=== PATIENT | male | born 1945 | race Caucasian/White ===

== ENCOUNTER 2016-08-28 16:07 | Inpatient (IN) | payer MEDICARE, BC ==
[~2016-08-28] VITALS: Ht 172.7 cm; Wt 71.1 kg
[~2016-08-28 16:07] MED LIST: 1-ME1LIQ OR; ADVA500A INH; CARD8TAB6 PO; HYDR100T2 PO; MEDR4PAK3 PO; METO50TA PO; POTA-243 PO; PRAV10 PO; PRAV20 PO; PROS5TAB2 PO; TAMS0.4C67 PO; TRAZ100 PO
[2016-08-28 16:12] VITALS: BP 141/64; PULSE 84; RESP 16; TEMP 98.6; O2SAT 95
[2016-08-28] MEDS ORDERED: PRAV10TA PO (16:20)
[2016-08-28] MEDS ORDERED: FINA5TAB2 PO (16:20)
[2016-08-28] MEDS ORDERED: TRAZ100T4 PO (16:20)
[2016-08-28] MEDS ORDERED: TAMS0.4C4 PO (16:20)
[2016-08-28] MEDS ORDERED: DOXA1TAB43 PO (16:20)
[2016-08-28] MEDS ORDERED: ADVA250A INH (16:20)
[2016-08-28] MEDS ORDERED: AMLO5TAB2 PO (16:20)
[2016-08-28] MEDS ORDERED: METO25TA3 PO (16:20)
[2016-08-28] MEDS ORDERED: POTA-245 PO (16:20)
--- NOTE | 2016-08-28 16:47 | PD ---
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 He is not aware of any fever or chills. He has a chronic cough. Says he is not having any pain anywhere. He has no dysuria. He does smoke cigarettes. He drinks 4 martinis daily. He did not have a loss of consciousness. He says he was shaking in his arms and legs. PFSH Past Medical History Hx Anticoagulant Therapy: No Autoimmune Disease: No Heart Rhythm Problems: No Cancer: Yes (RENAL. PARTIAL L NEPHRECTOMY) Cardiovascular Problems: No High Cholesterol: Yes (ON MEDS) Chemotherapy: No Chest Pain: No Congestive Heart Failure: No COPD: Yes Cerebrovascular Accident: No Coronary Artery Disease: Yes Diabetes: No Endocrine: Yes Gastrointestinal Disorders: Yes GERD: No Genitourinary: Yes Hiatal Hernia: Yes Hypertension: Yes Immune Disorder: No Implanted Vascular Access Dvce: Yes Kidney Stones: Yes Musculoskeletal: Yes Neurologic: No Psychiatric: No Reproductive: No Respiratory: Yes (COPD) Myocardial Infarction: No Radiation Therapy: No Renal Failure: No Ulcer: No Tetanus Vaccination: > 5 Years Influenza Vaccination: Yes PNEUMOCCOCAL Vaccine (Year): 1 Past Surgical History Abdominal Surgery: Yes (LT ING HERNIA REPAIR) Body Medical Devices: SCREWS IN LEFT HIP Cardiac Surgery: No Ear Surgery: No Endocrine Surgery: No Eye Surgery: No Genitourinary Surgery: Yes (RT PARTIAL NEPHRECTOMY) Gynecologic Surgery: No Hysterectomy: No Neurologic Surgery: No Oral Surgery: No Thoracic Surgery: No Tonsillectomy: Yes Other Surgery: Yes (RIGHT PARTIAL NEPHRECTOMY 1999,INGUINAL HERNIA 1962, TONSILLECTOMY) Social History Alcohol Use: Yes (4 MARTINIS DAILY) Tobacco Use: Yes (2 PPD) Substance Use: No Allergies-Medications (Allergen,Severity, Reaction): Coded Allergies: No Known Allergies (Verified , 08/28/16) Reported Meds & Prescriptions Reported Meds & Active Scripts Active Reported Trazodone (Trazodone HCl) 100 Mg Tab 100 Mg PO HS Klor-Con M20 (Potassium Chloride Microencaps) 20 Meq Tab 40 Meq PO DAILY Advair Diskus Inh (Fluticasone-Salmeterol Inh) 250-50 Mcg/Blist Aer 1 Puff INH DAILY Rinse mouth after use. Finasteride 5 Mg Tab 5 Mg PO DAILY Do not crush. Amlodipine (Amlodipine Besylate) 5 Mg Tab 5 Mg PO DAILY Doxazosin (Doxazosin Mesylate) 8 Mg Tab 8 Mg PO DAILY Metoprolol Tartrate 25 Mg Tab 25 Mg PO BID Pravastatin 10 Mg Tab 10 Mg PO DAILY Tamsulosin (Tamsulosin HCl) 0.4 Mg Cap 0.4 Mg PO HS Review of Systems General / Constitutional: No: Fever, Chills Eyes: No: Diploplia HENT: No: Headaches Cardiovascular: No: Chest Pain or Discomfort, Palpitations Respiratory: Positive: Cough, Shortness of Breath Gastrointestinal: No: Vomiting, Diarrhea Genitourinary: No: Urgency, Frequency Neurologic: No: Change in Mentation Hematologic/Lymphatic: No: Easy Bruising Physical Exam Narrative GENERAL: Well-developed male SKIN: Warm and dry. HEAD: Atraumatic. Normocephalic. EYES: Pupils equal and round. No scleral icterus. No injection or drainage. ENT: No nasal bleeding or discharge. Mucous membranes pink and moist. NECK: Trachea midline. No JVD. CARDIOVASCULAR: Regular rate and rhythm. No murmur appreciated. RESPIRATORY: No accessory muscle use. There are scattered rhonchi. Breath sounds equal bilaterally. GASTROINTESTINAL: Abdomen soft, non-tender, nondistended. Hepatic and splenic margins not palpable. MUSCULOSKELETAL: No obvious deformities. No clubbing. No cyanosis. No edema. NEUROLOGICAL: Awake and alert. No obvious cranial nerve deficits. Motor grossly within normal limits. Normal speech. PSYCHIATRIC: Appropriate mood and affect; insight and judgment normal. Data Data Last Documented VS Vital Signs Date Time Temp Pulse Resp B/P Pulse Ox O2 Delivery O2 Flow Rate FiO2 08/28/16 18:02 89 18 160/72 95 Room Air 08/28/16 16:12 98.6 Orders Electrocardiogram (08/28/16 16:42) Complete Blood Count With Diff (08/28/16 16:42) Comprehensive Metabolic Panel (08/28/16 16:42) B-Type Natriuretic Peptide (08/28/16 16:42) Urinalysis - C+S If Indicated (08/28/16 16:42) Magnesium (Mg) (08/28/16 16:42) Alcohol (Ethanol) (08/28/16 16:42) Chest, Single Ap (08/28/16 16:42) Urine Culture (08/28/16 16:55) Blood Culture (08/28/16 18:36) Lactic Acid Sepsis Protocol (08/28/16 18:36) Piperacil-Tazo 4.5 Gm Premix (Zosyn 4.5 (08/28/16 18:37) Ceftriaxone Inj (Rocephin Inj) (08/28/16 19:00) Sodium Chlor 0.9% 1000 Ml Inj (Ns 1000 M (08/28/16 19:00) Labs Laboratory Tests Test 08/28/16 16:55 White Blood Count 9.1 TH/MM3 Red Blood Count 4.60 MIL/MM3 Hemoglobin 15.3 GM/DL Hematocrit 45.9 % Mean Corpuscular Volume 99.7 FL Mean Corpuscular Hemoglobin 33.3 PG Mean Corpuscular Hemoglobin 33.4 % Concent Red Cell Distribution Width 12.5 % Platelet Count 143 TH/MM3 Mean Platelet Volume 9.4 FL Neutrophils (%) (Auto) 78.4 % Lymphocytes (%) (Auto) 10.1 % Monocytes (%) (Auto) 7.7 % Eosinophils (%) (Auto) 0.6 % Basophils (%) (Auto) 3.2 % Neutrophils # (Auto) 7.1 TH/MM3 Lymphocytes # (Auto) 0.9 TH/MM3 Monocytes # (Auto) 0.7 TH/MM3 Eosinophils # (Auto) 0.1 TH/MM3 Basophils # (Auto) 0.3 TH/MM3 CBC Comment DIFF FINAL Differential Comment Urine Collection Type CLEAN CATCH Urine Color YELLOW Urine Turbidity SLIGHT Urine pH 6.5 Urine Specific [place] 1.018 Urine Protein 100 mg/dL Urine Glucose (UA) NEG mg/dL Urine Ketones TRACE mg/dL Urine Occult Blood TRACE Urine Nitrite POS Urine Bilirubin NEG Urine Leukocyte Esterase MOD Urine RBC 0-3 /hpf Urine WBC 50-99 /hpf Urine WBC Clumps MOD Urine Squamous Epithelial 0-5 /hpf Cells Urine Transitional Epithelial 0-5 /hpf Cells Urine Bacteria OCC /hpf Urine Yeast (Budding) FEW Microscopic Urinalysis Comment CULTURE INDICATED Urine Collection Time 17:07 Sodium Level 143 MEQ/L Potassium Level 4.7 MEQ/L Chloride Level 108 MEQ/L Carbon Dioxide Level 23.3 MEQ/L Anion Gap 12 MEQ/L Blood Urea Nitrogen 20 MG/DL Creatinine 1.80 MG/DL Estimat Glomerular Filtration 37 ML/MIN Rate Random Glucose 113 MG/DL Calcium Level 9.0 MG/DL Magnesium Level 2.4 MG/DL Total Bilirubin 0.5 MG/DL Aspartate Amino Transf 13 U/L (AST/SGOT) Alanine Aminotransferase 19 U/L (ALT/SGPT) Alkaline Phosphatase 57 U/L B-Type Natriuretic Peptide 139 PG/ML Total Protein 6.7 GM/DL Albumin 3.2 GM/DL Ethyl Alcohol Level LESS THAN 3 MG/DL MDM Medical Decision Making Medical Screen Exam Complete: Yes Emergency Medical Condition: Yes Medical Record Reviewed: Yes Differential Diagnosis Differential includes alcohol withdrawal, shaking chills, pneumonia Narrative Course Chest x-rays read as negative. His white count is 9000. Urinalysis does show infection with 50-99 white cells. At approximately 6:30 I was called to see the patient because he was having a recurrence of his shaking episode. At this time he is having tremors of his arms and legs. He is awake and alert. I believe this is a shaking chill related to possible bacteremia from urinary tract infection Diagnosis Primary Impression: Urinary tract infection Qualified Code: N39.0 - Urinary tract infection without hematuria, site unspecified Admitting Information Admitting Physician Requests: Observation Keyur Engle MD Aug 28, 2016 16:47
[2016-08-28 17:14] LABS: AUTOMATED NEUTROPHIL # 7.1 TH/MM3 (1.8-7.7); BASOPHIL # 0.3 TH/MM3 (0-0.2); BASOPHIL % 3.2 % (0.0-2.0); EOSINOPHIL # 0.1 TH/MM3 (0-0.4); EOSINOPHIL % 0.6 % (0.0-4.0); HEMATOCRIT 45.9 % (39.0-51.0); HEMO FLAGS DIFF FINAL; LYMPH % 10.1 % (9.0-44.0); LYMPHOCYTE # 0.9 TH/MM3 (1.0-4.8); MEAN CELL VOLUME 99.7 FL (80.0-100.0); MEAN CORPUSCULAR HEMOGLOBIN 33.3 PG (27.0-34.0); MEAN CORPUSCULAR HGB CONC 33.4 % (32.0-36.0); MONO % 7.7 % (0.0-8.0); NEUT % 78.4 % (16.0-70.0); PLATELET COUNT 143 TH/MM3 (150-450); RED CELL DISTRIBUTION WIDTH 12.5 % (11.6-17.2); WHITE BLOOD COUNT 9.1 TH/MM3 (4.0-11.0)
[2016-08-28 17:19] LABS: BLOOD, URINE TRACE (NEG); GLUCOSE,URINE NEG (NEG); KETONE, URINE TRACE mg/dL (NEG); PH, URINE 6.5 (5.0-8.5)
[2016-08-28 17:23] LABS: CHLORIDE 108 MEQ/L (98-107); POTASSIUM 4.7 MEQ/L (3.5-5.1); SODIUM (NA) 143 MEQ/L (136-145)
[2016-08-28 17:26] LABS: ANION GAP 12 MEQ/L (5-15); BICARBONATE 23.3 MEQ/L (21.0-32.0); MAGNESIUM 2.4 MG/DL (1.5-2.5)
--- NOTE | 2016-08-28 17:26 | RADHPO ---
EXAM DATE/TIME: 08/28/2016 16:57 [facility] COMPARISON: CHEST SINGLE AP, August 18, 2014, 13:15. INDICATIONS : Cough. MEDICAL HISTORY : None. SURGICAL HISTORY : None. ENCOUNTER: Initial ACUITY: 3 days PAIN SCORE: 0/10 LOCATION: Bilateral chest FINDINGS: The heart and mediastinal structures are normal. The pulmonary vascular pattern is normal. The lungs are clear. CONCLUSION: No acute cardiopulmonary disease. Shine Fuentes MD on August 28, 2016 at 17:13 Board Certified Radiologist. This report was verified electronically.
[2016-08-28 17:27] LABS: BLOOD UREA NITROGEN 20 MG/DL (7-18)
[2016-08-28 17:29] LABS: ALT (GPT) 19 U/L (12-78); AST (GOT) 13 U/L (15-37); GLOMERULAR FILTRATION RATE 37 ML/MIN (>89)
[2016-08-28 17:31] LABS: TOTAL BILIRUBIN ADULT 0.5 MG/DL (0.2-1.0)
[2016-08-28 17:32] LABS: ALKALINE PHOSPHATASE 57 U/L (45-117)
[2016-08-28 17:45] LABS: METHOD OF COLLECTION CLEAN CATCH; NITRITE,URINE POS (NEG); URINE COLOR YELLOW (YELLW/STRAW)
[2016-08-28 17:46] LABS: BACTERIA, URINE OCC /hpf; COMMENT (UR) CULTURE INDICATED; CULTURE IF INDICATED CULTURE INDICATED; RBC, URINE 0-3 /hpf (0-3); SQUAMOUS EPITHELIAL CELL URINE 0-5 /hpf (0-5); TRANSITIONAL EPI CELLS, URINE 0-5 /hpf
[2016-08-28 18:02] VITALS: BP 160/72; PULSE 89; RESP 18; O2SAT 95
[2016-08-28] MEDS ORDERED: PIPERACIL-TAZO 4.5 GM PREMIX 100 ML IV STA (18:37)
[2016-08-28] MEDS ORDERED: cefTRIAXone INJ 1,000 MG in SODIUM CHLORIDE 0.9% INJ 100 ML IV ONE (19:00)
[2016-08-28 19:21] VITALS: BP 174/82; PULSE 80; RESP 18; O2SAT 96
[2016-08-28] MEDS: SODIUM CHLOR 0.9% 1000 ML INJ 1,000 ML IV SCH ×2 (19:46→22:19)
[2016-08-28 20:00] VITALS: BP 188/106; PULSE 87; RESP 18; TEMP 97.6; O2SAT 94
[2016-08-28] MEDS ORDERED: SODIUM CHLORIDE 0.9% FLUSH 5 ML FLUSH FLUSH PRN (20:45)
[2016-08-28] MEDS ORDERED: NALOXONE HCL 0.4 MG/ML AMP IV PRN (20:45)
[2016-08-28 20:54] VITALS: BP 179/82
[2016-08-28] MEDS: SODIUM CHLORIDE 0.9% FLUSH 5 ML FLUSH FLUSH SCH (21:00)
[2016-08-28] MEDS ORDERED: cloNIDine HCL 0.1 MG TAB PO PRN (22:00)
[2016-08-28] MEDS ORDERED: LORazepam 2 MG TAB PO PRN (22:15)
[2016-08-28] MEDS ORDERED: LORazepam 2 MG/ML VIAL IV PUSH PRN ×4 (22:15)
[2016-08-28] MEDS ORDERED: LORazepam 1 MG TAB PO PRN (22:15)
[2016-08-28] MEDS ORDERED: FLUMAZENIL 0.5 MG/5 ML VIAL IV PUSH PRN (22:15)
[2016-08-28] MEDS: traZODone HCL 100 MG TAB PO SCH (22:18)
[2016-08-28] MEDS: TAMSULOSIN HCL 0.4 MG CAP PO SCH (22:18)
[2016-08-28] MEDS: METOPROLOL TARTRATE 25 MG TAB PO SCH (22:19)
[2016-08-28 22:45] LABS: AMPHETAMINE, URINE NEG (NEG); BARBITURATES, URINE NEG (NEG); COCAINE, URINE NEG (NEG)
[2016-08-28] MEDS ORDERED: NICOTINE 14 MG/24 HR PATCH TD ONE (23:45)
[2016-08-29] VITALS: BP 169/98; PULSE 71; RESP 16; TEMP 97.5; O2SAT 96
[2016-08-29] MEDS: SODIUM CHLOR 0.9% 1000 ML INJ 1,000 ML IV SCH ×3 (04:22→20:12)
[2016-08-29] MEDS ORDERED: RESP: ALBUTEROL 2.5 MG/3 ML NEB (PRN) INH (04:45)
[2016-08-29] MEDS: RESP: ALBUTEROL 2.5 MG/IPRATROPIUM 0.5 MG NEB (SCH) INH ×2 (04:55→09:48)
[2016-08-29 06:00] VITALS: BP 160/98; PULSE 98; RESP 16; TEMP 97.3; O2SAT 95
--- NOTE | 2016-08-29 06:04 | HHI.HP ---
History of Present Illness Service [facility] practice Primary Care Physician Tez Sidhu, DO Admission Diagnosis UTI Diagnoses: History of Present Illness Patient is a very pleasant 71-year-old male who is a patient who presented to the ER with shaking. He denies any fever or chills. He has a PMH of HTN, hyperlipidemia, COPD, tobacco abuse, daily ETOH use, and BPH. He has a chronic cough. Says he is not having any pain anywhere. He was found to have a UTI and antibiotic treatment was initiated. BC where also obtained. He has no dysuria. Review of Systems Constitutional: COMPLAINS OF: Chills, DENIES: Fever Respiratory: COMPLAINS OF: Cough, DENIES: Sputum production, Shortness of breath Cardiovascular: DENIES: Chest pain, Palpitations, Syncope Gastrointestinal: DENIES: Abdominal pain, Constipation, Nausea, Vomiting Musculoskeletal: COMPLAINS OF: Stiffness, DENIES: Joint pain Neurologic: COMPLAINS OF: Poor Balance, DENIES: Headache, Seizures Psychiatric: DENIES: Anxiety, Confusion, Depression Past Family Social History Allergies: Coded Allergies: No Known Allergies (Verified , 08/28/16) Past Medical History Cancer: Yes (RENAL. PARTIAL L NEPHRECTOMY) High Cholesterol COPD Hiatal Hernia Hypertension Kidney Stones Past Surgical History RIGHT PARTIAL NEPHRECTOMY 1999,INGUINAL HERNIA 1962,TONSILLECTOMY Reported Medications Reported Meds & Active Scripts Active Reported Trazodone (Trazodone HCl) 100 Mg Tab 100 Mg PO HS Advair Diskus Inh (Fluticasone-Salmeterol Inh) 250-50 Mcg/Blist Aer 1 Puff INH DAILY Rinse mouth after use. Finasteride 5 Mg Tab 5 Mg PO DAILY Do not crush. Amlodipine (Amlodipine Besylate) 5 Mg Tab 5 Mg PO DAILY Doxazosin (Doxazosin Mesylate) 8 Mg Tab 8 Mg PO DAILY Metoprolol Tartrate 25 Mg Tab 25 Mg PO BID Pravastatin 10 Mg Tab 10 Mg PO DAILY Tamsulosin (Tamsulosin HCl) 0.4 Mg Cap 0.4 Mg PO HS Active Ordered Medications Current Medications Medications (Trade) Dose Ordered Sig/Nayeli Route Start Time Stop Time Status Last Admin (NS Flush) 2 ml UNSCH PRN FLUSH 08/28/16 20:45 (NS Flush) 2 ml BID FLUSH 08/28/16 21:00 08/29/16 09:04 (Narcan Inj) 0.4 mg UNSCH PRN IV 08/28/16 20:45 (Norvasc) 5 mg DAILY PO 08/29/16 09:00 08/29/16 09:05 (Cardura) 8 mg DAILY PO 08/29/16 09:00 08/29/16 09:04 (Proscar) 5 mg DAILY PO 08/29/16 09:00 08/29/16 09:04 (Pravachol) 10 mg DAILY PO 08/29/16 09:00 08/29/16 09:09 (Symbicort 160-4.5 Inh) 2 puff DAILY INH 08/29/16 09:00 08/29/16 09:04 (Lopressor) 25 mg BID PO 08/28/16 22:00 08/29/16 09:04 (Flomax) 0.4 mg HS PO 08/28/16 22:00 08/28/16 22:18 (Desyrel) 100 mg HS PO 08/28/16 22:00 08/28/16 22:18 (Catapres) 0.1 mg Q6H PRN PO 08/28/16 22:00 08/29/16 04:23 (Ativan) 1 mg Q4H PRN PO 08/28/16 22:15 (Ativan Inj) 1 mg Q4H PRN IV PUSH 08/28/16 22:15 08/28/16 22:28 (Ativan) 2 mg Q2H PRN PO 08/28/16 22:15 (Ativan Inj) 2 mg Q2H PRN IV PUSH 08/28/16 22:15 (Ativan Inj) 2 mg Q1H PRN IV PUSH 08/28/16 22:15 (Ativan Inj) 2 mg Q15M PRN IV PUSH 08/28/16 22:15 (Habitrol 14 Mg Patch.24 Hr) 1 patch DAILY TD 08/29/16 09:00 08/29/16 09:06 Miscellaneous Information 1 DAILY TD 08/29/16 09:00 08/29/16 09:00 IV Flush 2 ml 2 ml BID IVF 08/29/16 09:00 (NS 1000 ml Inj) 1,000 ml @ 75 mls/hr [id number] IV 08/29/16 07:00 08/29/16 08:22 (Symbicort 160-4.5 Inh) 2 puff Q12HR INH 08/29/16 12:00 (Proair Hfa Inh) 2 puff Q6HR INH 08/29/16 12:00 UNV Social History Smokes 2 pack per day ETOH: Daily 4 drinks Lives alone. Physical Exam Vital Signs Vital Signs Date Time Temp Pulse Resp B/P Pulse Ox O2 Delivery O2 Flow Rate FiO2 08/29/16 00:00 97.5 71 16 169/98 96 08/28/16 20:54 81 18 179/82 95 08/28/16 20:00 97.6 87 18 188/106 94 08/28/16 19:21 75 18 96 Room Air 08/28/16 19:21 80 18 174/82 96 Room Air 08/28/16 18:02 89 18 160/72 95 Room Air 08/28/16 16:12 98.6 84 16 141/64 95 Physical Exam GENERAL: This is a well-nourished male in no apparent distress SKIN: No rashes, ecchymoses or lesions. Cool and dry. EYES: Pupils equal round and reactive. NECK: Trachea midline. No JVD. Supple, nontender, no meningeal signs. CARDIOVASCULAR: Regular rate and rhythm without murmurs, gallops, or rubs. RESPIRATORY: Diminished bilaterally. Wheezing no rales, or rhonchi. GASTROINTESTINAL: Abdomen soft, non-tender, nondistended. MUSCULOSKELETAL: Extremities without cyanosis, or edema. NEUROLOGICAL: Awake and alert. Normal speech. Laboratory Laboratory Tests Test 08/28/16 08/28/16 08/28/16 16:55 19:00 20:25 White Blood Count 9.1 Red Blood Count 4.60 Hemoglobin 15.3 Hematocrit 45.9 Mean Corpuscular Volume 99.7 Mean Corpuscular Hemoglobin 33.3 Mean Corpuscular Hemoglobin 33.4 Concent Red Cell Distribution Width 12.5 Platelet Count 143 Mean Platelet Volume 9.4 Neutrophils (%) (Auto) 78.4 Lymphocytes (%) (Auto) 10.1 Monocytes (%) (Auto) 7.7 Eosinophils (%) (Auto) 0.6 Basophils (%) (Auto) 3.2 Neutrophils # (Auto) 7.1 Lymphocytes # (Auto) 0.9 Monocytes # (Auto) 0.7 Eosinophils # (Auto) 0.1 Basophils # (Auto) 0.3 CBC Comment DIFF FINAL Differential Comment Urine Collection Type CLEAN CATCH Urine Color YELLOW Urine Turbidity SLIGHT Urine pH 6.5 Urine Specific [place] 1.018 Urine Protein 100 Urine Glucose (UA) NEG Urine Ketones TRACE Urine Occult Blood TRACE Urine Nitrite POS Urine Bilirubin NEG Urine Leukocyte Esterase MOD Urine RBC 0-3 Urine WBC 50-99 Urine WBC Clumps MOD Urine Squamous Epithelial 0-5 Cells Urine Transitional Epithelial 0-5 Cells Urine Bacteria OCC Urine Yeast (Budding) FEW Microscopic Urinalysis Comment CULTURE INDICATED Urine Collection Time 17:07 Sodium Level 143 Potassium Level 4.7 Chloride Level 108 Carbon Dioxide Level 23.3 Anion Gap 12 Blood Urea Nitrogen 20 Creatinine 1.80 Estimat Glomerular Filtration 37 Rate Random Glucose 113 Calcium Level 9.0 Magnesium Level 2.4 Total Bilirubin 0.5 Aspartate Amino Transf 13 (AST/SGOT) Alanine Aminotransferase 19 (ALT/SGPT) Alkaline Phosphatase 57 B-Type Natriuretic Peptide 139 Total Protein 6.7 Albumin 3.2 Ethyl Alcohol Level LESS THAN 3 Lactic Acid Level 1.4 Urine Opiates Screen NEG Urine Barbiturates Screen NEG Urine Amphetamines Screen NEG Urine Benzodiazepines Screen NEG Urine Cocaine Screen NEG Urine Cannabinoids Screen NEG Date/Time Procedure Status Source Growth 08/28/16 18:59 Aerobic Blood Culture Received Blood Peripheral Pending 08/28/16 18:59 Anaerobic Blood Culture Received Blood Peripheral Pending 08/28/16 16:55 Urine Culture Received Urine Clean Catch Pending Result Diagram: 08/28/16 1655 08/28/16 1655 Imaging Last 48 hours Impressions Chest X-Ray 08/28/16 1642 Signed Impressions: Service Date/Time: August 16:57 - CONCLUSION: No acute cardiopulmonary disease. Shine Fuentes MD Assessment and Plan Problem List: (1) Urinary tract infection Status: Acute Plan: Patient with positive nitrates and leukocytes. Rocephin ordered Q24 hours. Culture pending. (2) Hypertension Status: Acute Plan: Patient HTN. Amlodipine increased. Lisinopril added. (3) COPD (chronic obstructive pulmonary disease) Status: Acute Plan: Patient is wheezy this am. Breathing treatment ordered however patient does not want nebulizer. Symbicort and ProAir ordered. (4) Alcohol abuse Status: Acute Plan: CIWA protocol initiated last night. Patient was calm and cooperative during visit. (5) Chronic renal disease Status: Acute Plan: GFR 37 will monitor. IVF decreased to 75 ml. Making good urine output. (6) Weakness Status: Acute Plan: PT eval and treat ordered. Patient reported that he has been very weak. Walks with cane Discussed Condition With Assessment and plan discussed with Dr. Sidhu Discharge Planning Plan to discharge home Problem Qualifiers (1) Urinary tract infection: Qualified Code: N39.0 - Urinary tract infection without hematuria, site unspecified Raysa Bhakta Aug 29, 2016 06:04
[2016-08-29 08:00] VITALS: BP 182/94; PULSE 72; RESP 18; TEMP 97.5; O2SAT 93
[2016-08-29 08:04] LABS: AUTOMATED NEUTROPHIL # 4.2 TH/MM3 (1.8-7.7); BASOPHIL # 0.2 TH/MM3 (0-0.2); BASOPHIL % 2.7 % (0.0-2.0); EOSINOPHIL # 0.2 TH/MM3 (0-0.4); EOSINOPHIL % 3.1 % (0.0-4.0); HEMATOCRIT 42.7 % (39.0-51.0); HEMO FLAGS DIFF FINAL; LYMPH % 18.9 % (9.0-44.0); LYMPHOCYTE # 1.2 TH/MM3 (1.0-4.8); MEAN CELL VOLUME 101.5 FL (80.0-100.0); MEAN CORPUSCULAR HEMOGLOBIN 34.5 PG (27.0-34.0); MONO % 9.7 % (0.0-8.0); NEUT % 65.6 % (16.0-70.0); PLATELET COUNT 123 TH/MM3 (150-450); RED BLOOD COUNT 4.21 MIL/MM3 (4.50-5.90); WHITE BLOOD COUNT 6.4 TH/MM3 (4.0-11.0)
[2016-08-29] MEDS: REMOVE OLD PATCH TD SCH (09:00)
[2016-08-29] MEDS: SODIUM CHLORIDE 0.9% FLUSH 5 ML FLUSH IVF SCH ×2 (09:00→20:12)
[2016-08-29] MEDS ORDERED: amLODIPine BESYLATE 5 MG TAB PO SCH (09:00)
[2016-08-29] MEDS ORDERED: METOPROLOL TARTRATE 25 MG TAB PO SCH (09:00)
[2016-08-29] MEDS ORDERED: BUDESONIDE-FORMOTEROL 160/4.5 MCG INHALER INH SCH ×3 (09:00→21:00)
[2016-08-29] MEDS: DOXAZOSIN MESYLATE 4 MG TAB PO SCH (09:04)
[2016-08-29] MEDS: FINASTERIDE 5 MG TAB PO SCH (09:04)
[2016-08-29] MEDS: SODIUM CHLORIDE 0.9% FLUSH 5 ML FLUSH FLUSH SCH ×2 (09:04→20:12)
[2016-08-29] MEDS: METOPROLOL TARTRATE 25 MG TAB PO SCH ×2 (09:04→20:14)
[2016-08-29] MEDS: NICOTINE 14 MG/24 HR PATCH TD SCH (09:06)
[2016-08-29] MEDS: PRAVASTATIN SOD 10 MG TAB PO SCH (09:09)
[2016-08-29 10:25] LABS: ALKALINE PHOSPHATASE 50 U/L (45-117); ALT (GPT) 16 U/L (12-78); ANION GAP 9 MEQ/L (5-15); AST (GOT) 11 U/L (15-37); BICARBONATE 24.3 MEQ/L (21.0-32.0); BLOOD UREA NITROGEN 14 MG/DL (7-18); CHLORIDE 111 MEQ/L (98-107); GLOMERULAR FILTRATION RATE 50 ML/MIN (>89); POTASSIUM 3.7 MEQ/L (3.5-5.1); SODIUM (NA) 144 MEQ/L (136-145); TOTAL BILIRUBIN ADULT 0.6 MG/DL (0.2-1.0)
[2016-08-29] MEDS: ENOXAPARIN SODIUM 30 MG/0.3 ML SYRINGE SQ SCH (10:50)
[2016-08-29 12:00] VITALS: BP 154/78; PULSE 68; RESP 18; TEMP 97.4; O2SAT 95
[2016-08-29] MEDS ORDERED: ALBUTEROL SULFATE 90 MCG/ACT HFA 8 GM INHALER INH PRN (12:00)
[2016-08-29] MEDS: LISINOPRIL 10 MG TAB PO SCH (12:33)
[2016-08-29] MEDS: RESP: ALBUTEROL 2.5 MG/IPRATROPIUM 0.5 MG NEB (SCH) NEB ×2 (15:25→19:28)
--- NOTE | 2016-08-29 18:52 | EKG ---
Date Performed: 08/28/2016 Time Performed: 16:41:34 PTAGE: 71 years EKG: Sinus arrhythmia Septal T wave changes are nonspecific Borderline ECG PREVIOUS TRACING : 07/09/2012 09.31 Since previous tracing, no significant change noted DOCTOR: Pam Melendez Interpretating Date/Time 08/29/2016 18:51:18
[2016-08-29] MEDS ORDERED: cefTRIAXone INJ 1,000 MG in SODIUM CHLORIDE 0.9% INJ 100 ML IV SCH (20:00)
[2016-08-29] MEDS: traZODone HCL 100 MG TAB PO SCH (20:13)
[2016-08-29] MEDS: TAMSULOSIN HCL 0.4 MG CAP PO SCH (20:14)
[2016-08-29 20:29] VITALS: BP 154/78; PULSE 80; RESP 18; TEMP 97.6; O2SAT 93
[2016-08-29] MEDS ORDERED: TAMSULOSIN HCL 0.4 MG CAP PO SCH (21:00)
[2016-08-29] MEDS ORDERED: traZODone HCL 100 MG TAB PO SCH (21:00)
[2016-08-29] MEDS ORDERED: ACETAMINOPHEN/HYDROcodone 325 MG/5 MG TAB PO PRN ×2 (23:15)
[2016-08-30 00:28] VITALS: BP 178/82; PULSE 68; RESP 18; TEMP 97.7; O2SAT 96
[2016-08-30 04:50] VITALS: BP 166/84; PULSE 67; RESP 20; TEMP 97.1; O2SAT 93
[2016-08-30] MEDS: RESP: ALBUTEROL 2.5 MG/IPRATROPIUM 0.5 MG NEB (SCH) NEB ×3 (07:50→15:24)
[2016-08-30 07:51] LABS: AUTOMATED NEUTROPHIL # 4.4 TH/MM3 (1.8-7.7); BASOPHIL % 0.4 % (0.0-2.0); EOSINOPHIL # 0.2 TH/MM3 (0-0.4); EOSINOPHIL % 3.4 % (0.0-4.0); HEMATOCRIT 41.1 % (39.0-51.0); HEMO FLAGS DIFF FINAL; LYMPH % 22.5 % (9.0-44.0); LYMPHOCYTE # 1.5 TH/MM3 (1.0-4.8); MEAN CELL VOLUME 99.9 FL (80.0-100.0); MEAN CORPUSCULAR HEMOGLOBIN 34.3 PG (27.0-34.0); MEAN CORPUSCULAR HGB CONC 34.3 % (32.0-36.0); MONO % 10.4 % (0.0-8.0); NEUT % 63.3 % (16.0-70.0); PLATELET COUNT 108 TH/MM3 (150-450); RED BLOOD COUNT 4.12 MIL/MM3 (4.50-5.90); RED CELL DISTRIBUTION WIDTH 12.3 % (11.6-17.2); WHITE BLOOD COUNT 6.8 TH/MM3 (4.0-11.0)
[2016-08-30 07:52] VITALS: O2SAT 96
[2016-08-30 08:00] VITALS: BP 162/84; PULSE 60; RESP 16; TEMP 96.7; O2SAT 95
[2016-08-30 08:08] LABS: POTASSIUM 3.5 MEQ/L (3.5-5.1)
[2016-08-30] MEDS: METOPROLOL TARTRATE 25 MG TAB PO SCH (08:30)
[2016-08-30] MEDS: FINASTERIDE 5 MG TAB PO SCH (08:30)
[2016-08-30] MEDS: DOXAZOSIN MESYLATE 4 MG TAB PO SCH (08:31)
[2016-08-30] MEDS: REMOVE OLD PATCH TD SCH (08:31)
[2016-08-30] MEDS: PRAVASTATIN SOD 10 MG TAB PO SCH (08:31)
[2016-08-30] MEDS: LISINOPRIL 10 MG TAB PO SCH (08:31)
[2016-08-30] MEDS: NICOTINE 14 MG/24 HR PATCH TD SCH (08:31)
[2016-08-30] MEDS: SODIUM CHLORIDE 0.9% FLUSH 5 ML FLUSH IVF SCH (08:39)
[2016-08-30] MEDS: SODIUM CHLORIDE 0.9% FLUSH 5 ML FLUSH FLUSH SCH (08:39)
[2016-08-30] MEDS: SODIUM CHLOR 0.9% 1000 ML INJ 1,000 ML IV SCH (08:40)
[2016-08-30] MEDS ORDERED: amLODIPine BESYLATE 5 MG TAB PO SCH (09:00)
[2016-08-30] MEDS ORDERED: REMOVE OLD PATCH TD SCH (09:00)
[2016-08-30] MEDS ORDERED: FLUT1INH7 INH (09:03)
[2016-08-30] MEDS ORDERED: POTA20TA5 PO (09:07)
[2016-08-30] MEDS: ENOXAPARIN SODIUM 30 MG/0.3 ML SYRINGE SQ SCH (11:35)
[2016-08-30 11:58] VITALS: BP 155/73; PULSE 68; RESP 16; TEMP 98.6; O2SAT 97
[2016-08-30 16:00] VITALS: BP 170/80; PULSE 78; RESP 16; TEMP 98.5; O2SAT 97
--- NOTE | 2016-08-30 16:07 | HHI.DS ---
Discharge Summary Admission Date Aug 28, 2016 at 21:03 Admitting Diagnosis UTI CBC/BMP: 08/30/16 0700 08/30/16 0700 Significant Findings Laboratory Tests Test 08/28/16 08/29/16 08/30/16 16:55 08:00 07:00 Chloride Level 108 MEQ/L 111 MEQ/L 111 MEQ/L (98-107) (98-107) (98-107) Blood Urea Nitrogen 20 MG/DL (7-18) Creatinine 1.80 MG/DL 1.40 MG/DL 1.40 MG/DL (0.60-1.30) (0.60-1.30) (0.60-1.30) Estimat Glomerular Filtration 37 ML/MIN (>89) 50 ML/MIN (>89) 50 ML/MIN (>89) Rate Random Glucose 113 MG/DL (74-106) Aspartate Amino Transf 13 U/L (15-37) 11 U/L (15-37) (AST/SGOT) B-Type Natriuretic Peptide 139 PG/ML (0-100) Albumin 3.2 GM/DL 2.7 GM/DL (3.4-5.0) (3.4-5.0) Platelet Count 143 TH/MM3 123 TH/MM3 108 TH/MM3 (150-450) (150-450) (150-450) Neutrophils (%) (Auto) 78.4 % (16.0-70.0) Basophils (%) (Auto) 3.2 % (0.0-2.0) 2.7 % (0.0-2.0) Lymphocytes # (Auto) 0.9 TH/MM3 (1.0-4.8) Basophils # (Auto) 0.3 TH/MM3 (0-0.2) Urine Protein 100 mg/dL (NEG-TRACE) Urine Ketones TRACE mg/dL (NEG) Urine Occult Blood TRACE (NEG) Urine Nitrite POS (NEG) Urine Leukocyte Esterase MOD (NEG) Urine WBC 50-99 /hpf (0-5) Urine WBC Clumps MOD (NONE) Urine Bacteria OCC /hpf (NONE) Urine Yeast (Budding) FEW (NONE) Red Blood Count 4.21 MIL/MM3 4.12 MIL/MM3 (4.50-5.90) (4.50-5.90) Mean Corpuscular Volume 101.5 FL (80.0-100.0) Mean Corpuscular Hemoglobin 34.5 PG 34.3 PG (27.0-34.0) (27.0-34.0) Monocytes (%) (Auto) 9.7 % (0.0-8.0) 10.4 % (0.0-8.0) Calcium Level 8.0 MG/DL 8.0 MG/DL (8.5-10.1) (8.5-10.1) Total Protein 5.8 GM/DL (6.4-8.2) Pt Condition on Discharge: Good Discharge Disposition: Discharge Home Discharge Instructions DIET: Follow Instructions for: Heart Healthy Diet Activities you can perform: Regular-No Restrictions Additional Activity Instructio: reduce alcohol intake Tez Sidhu DO Aug 30, 2016 16:07
--- NOTE | 2016-08-30 16:12 | HHI.PR ---
Subjective Remarks doing well blood cultures stable Objective Vital Signs Date Time Temp Pulse Resp B/P Pulse Ox O2 Delivery O2 Flow Rate FiO2 08/30/16 11:58 98.6 68 16 155/73 97 08/30/16 08:00 96.7 60 16 162/84 95 08/30/16 07:52 96 21 08/30/16 04:50 97.1 67 20 166/84 93 08/30/16 00:28 97.7 68 18 178/82 96 08/29/16 20:29 97.6 80 18 154/78 93 I/O 08/29/16 08/29/16 08/29/16 08/30/16 08/30/16 08/30/16 07:00 15:00 23:00 07:00 15:00 23:00 Intake Total 680 ml 3766 ml 1361 ml Output Total 850 ml 1125 ml 450 ml 1404 ml 300 ml Balance -170 ml 2641 ml -450 ml -1404 ml 1061 ml Intake Oral 680 ml 750 ml 660 ml IV Total 3016 ml 701 ml Output Urine Total 850 ml 1125 ml 450 ml 1404 ml 300 ml # Voids 4 Result Diagram: 08/30/16 0700 08/30/16 0700 Objective Remarks GENERAL: SKIN: Warm and dry. HEAD: Atraumatic. Normocephalic. EYES: Pupils equal and round. No scleral icterus. No injection or drainage. ENT: No nasal bleeding or discharge. Mucous membranes pink and moist. NECK: Trachea midline. No JVD. CARDIOVASCULAR: Regular rate and rhythm. RESPIRATORY: No accessory muscle use. Clear to auscultation. Breath sounds equal bilaterally. GASTROINTESTINAL: Abdomen soft, non-tender, nondistended. Hepatic and splenic margins not palpable. MUSCULOSKELETAL: Extremities without clubbing, cyanosis, or edema. No obvious deformities. NEUROLOGICAL: Awake and alert. No obvious cranial nerve deficits. Motor grossly within normal limits. Five out of 5 muscle strength in the arms and legs. Normal speech. PSYCHIATRIC: Appropriate mood and affect; insight and judgment normal.crochety Medications and IVs Current Medications Medications (Trade) Dose Ordered Sig/Nayeli Route PRN Reason Start Time Stop Time Status Last Admin Dose Admin IV Flush (NS Flush) 2 ml UNSCH PRN FLUSH FLUSH AFTER USING IV ACCESS 08/28/16 20:45 IV Flush (NS Flush) 2 ml BID FLUSH 08/28/16 21:00 08/29/16 09:04 Naloxone HCl (Narcan Inj) 0.4 mg UNSCH PRN IV SEE LABEL COMMENTS 08/28/16 20:45 Doxazosin Mesylate (Cardura) 8 mg DAILY PO 08/29/16 09:00 08/30/16 08:31 Finasteride (Proscar) 5 mg DAILY PO 08/29/16 09:00 08/30/16 08:30 Pravastatin Sodium (Pravachol) 10 mg DAILY PO 08/29/16 09:00 08/29/16 09:09 Metoprolol Tartrate (Lopressor) 25 mg BID PO 08/28/16 22:00 08/30/16 08:30 Tamsulosin HCl (Flomax) 0.4 mg HS PO 08/28/16 22:00 08/29/16 20:14 Trazodone HCl (Desyrel) 100 mg HS PO 08/28/16 22:00 08/29/16 20:13 Clonidine (Catapres) 0.1 mg Q6H PRN PO SEE LABEL COMMENTS 08/28/16 22:00 08/29/16 04:23 Lorazepam (Ativan) 1 mg Q4H PRN PO CIWA 8 - 10 08/28/16 22:15 Lorazepam (Ativan Inj) 1 mg Q4H PRN IV PUSH CIWA 8 - 10 08/28/16 22:15 08/28/16 22:28 Lorazepam (Ativan) 2 mg Q2H PRN PO CIWA 11-14 08/28/16 22:15 Lorazepam (Ativan Inj) 2 mg Q2H PRN IV PUSH CIWA 11-14 08/28/16 22:15 Lorazepam (Ativan Inj) 2 mg Q1H PRN IV PUSH CIWA 15-20 08/28/16 22:15 Lorazepam (Ativan Inj) 2 mg Q15M PRN IV PUSH CIWA > 20 08/28/16 22:15 Nicotine (Habitrol 14 Mg Patch.24 Hr) 1 patch DAILY TD 08/29/16 09:00 08/30/16 08:31 Miscellaneous Information 1 DAILY TD 08/29/16 09:00 08/30/16 08:31 IV Flush 2 ml 2 ml BID IVF 08/29/16 09:00 Sodium Chloride (NS 1000 ml Inj) 1,000 ml @ 75 mls/hr [id number] IV 08/29/16 07:00 08/30/16 08:40 Enoxaparin Sodium 30 mg 30 mg Q24H SQ 08/29/16 11:00 08/30/16 11:35 Ceftriaxone Sodium/Sodium Chloride (Rocephin Inj/NS Inj) 100 ml @ 200 mls/hr Q24H IV 08/29/16 20:00 08/29/16 20:12 Amlodipine Besylate (Norvasc) 10 mg DAILY PO 08/30/16 09:00 08/30/16 08:31 Lisinopril (Prinivil) 10 mg DAILY PO 08/29/16 10:30 08/30/16 08:31 Acetaminophen/ Hydrocodone Bitart ([place] 5-325 Mg) 1 tab Q4H PRN PO PAIN SCALE 1 TO 5 08/29/16 23:15 08/29/16 23:19 Acetaminophen/ Hydrocodone Bitart ([place] 5-325 Mg) 2 tab Q4H PRN PO PAIN SCALE 6 TO 10 08/29/16 23:15 Assessment and Plan Discussed Condition With patient to dc home on ceftin 500 1 po bid script written continue all home flowers Tez Sidhu DO Aug 30, 2016 16:11
== END 2016-08-30 16:51 | disposition home or self-care (01) | DRG 690 ==
LOC: PHED 16:07 → PHEDA 18:51 → PH3A 20:56 → OBSVTOIN 21:03
PROVIDERS: ADMIT Family Medicine; ATTEND Family Medicine
DX: N39.0 Urinary tract infection, site not specified (principal); J44.9 Chronic obstructive pulmonary disease, unspecified; E78.00 Pure hypercholesterolemia, unspecified; F17.210 Nicotine dependence, cigarettes, uncomplicated; R25.1 Tremor, unspecified; I25.10 Atherosclerotic heart disease of native coronary artery without angina pectoris; Z87.442 Personal history of urinary calculi; K44.9 Diaphragmatic hernia without obstruction or gangrene; N18.9 Chronic kidney disease, unspecified; I12.9 Hypertensive chronic kidney disease with stage 1 through stage 4 chronic kidney disease, or unspecified chronic kidney disease; Z85.528 Personal history of other malignant neoplasm of kidney; F10.10 Alcohol abuse, uncomplicated; E78.5 Hyperlipidemia, unspecified; N40.0 Benign prostatic hyperplasia without lower urinary tract symptoms
CPT/HCPCS: 71010; 80048; 80053; 80307; 80320; 81001; 83605; 83735; 83880; 85025; 87040; 87077; 87086; 87186; 93005; 94640; 94664; J0696; J1650; J2060; J7030; J7613

== ENCOUNTER 2017-02-24 16:31 | Inpatient (IN) | payer MEDICARE, BC ==
[~2017-02-24] VITALS: Ht 175.3 cm; Wt 67.9 kg
[~2017-02-24 16:31] MED LIST changes: -1-ME1LIQ OR; -ADVA500A INH; +AMLO5TAB2 PO; -CARD8TAB6 PO; +DOXA1TAB43 PO; +FINA5TAB2 PO; +FLUT1INH7 INH; -HYDR100T2 PO; -MEDR4PAK3 PO; +METO25TA3 PO; -METO50TA PO; -POTA-243 PO; +POTA20TA5 PO; -PRAV10 PO; +PRAV10TA PO; -PRAV20 PO; -PROS5TAB2 PO; +TAMS0.4C4 PO; -TAMS0.4C67 PO; -TRAZ100 PO; +TRAZ100T4 PO
[2017-02-24 16:34] VITALS: BP 102/59; PULSE 122; RESP 28; TEMP 98.4; O2SAT 96
--- NOTE | 2017-02-24 16:41 | PD ---
Physical Exam Time Seen by Provider: 16:39 Narrative 72 y/o male with decreased urination, diarrhea, decreased appetite, weakness, shortness of breath over the past few days. Vital signs reviewed. Seen at triage desk. Awaiting bed placement. Data Data Last Documented VS Vital Signs Date Time Temp Pulse Resp B/P Pulse Ox O2 Delivery O2 Flow Rate FiO2 02/24/17 16:34 98.4 122 28 102/59 96 MDM Medical Record Reviewed: Yes Supervised Visit with MAXINE: Juan F Saenz Feb 24, 2017 16:41
--- NOTE | 2017-02-24 16:59 | PD ---
HPI Chief Complaint: Respiratory Symptoms Time Seen by Provider: 16:59 Travel History International Travel<30 days: No Contact w/Intl Traveler<30days: No Traveled to known affect area: No History of Present Illness HPI 72-year-old male with history of CAD, hypertension, COPD, BPH, alcohol dependency, tobacco dependency, presents to the emergency department for evaluation of worsening shortness of breath, urinary retention, diarrhea, and generalized weakness worsening of the last few days. He has a female neighbor friend who came and checked on him today and he was concerned because he was feeling shaky and weak. He also noticed that his right lower extremity was more swollen than his left. Patient states over the last few nights he has voided multiple times but today he has not been able to void since about 2 PM. He states his urine streams have been painful before starting and it finished but not during the actual void. Denies any fever or chills. He does report some suprapubic discomfort. Denies any chest pain. No fever. He has felt chilled. He has no other symptoms to report. PFSH Past Medical History Hx Anticoagulant Therapy: No Asthma: No Autoimmune Disease: No Blood Disorders: No Heart Rhythm Problems: No Cancer: Yes (RIGHT KIDNEY, 2001) Cardiovascular Problems: Yes High Cholesterol: No Chemotherapy: No Chest Pain: No Congestive Heart Failure: No COPD: Yes Cerebrovascular Accident: No Coronary Artery Disease: Yes Diabetes: No Endocrine: No Gastrointestinal Disorders: Yes GERD: No Genitourinary: Yes (BPH) Hiatal Hernia: Yes Hypertension: Yes Immune Disorder: No Implanted Vascular Access Dvce: Yes Kidney Stones: Yes Musculoskeletal: Yes (PERIPHERAL NEUROPATHY ) Neurologic: No Psychiatric: No Reproductive: No Respiratory: Yes (COPD) Myocardial Infarction: No Radiation Therapy: No Renal Failure: No Sleep Apnea: No Ulcer: No PNEUMOCCOCAL Vaccine (Year): 1 Past Surgical History Abdominal Surgery: Yes (LT ING HERNIA REPAIR) Body Medical Devices: SCREWS TO RIGHT LEG Cardiac Surgery: No Ear Surgery: No Endocrine Surgery: No Eye Surgery: No Genitourinary Surgery: Yes (RT PARTIAL NEPHRECTOMY) Gynecologic Surgery: No Hysterectomy: No Neurologic Surgery: No Oral Surgery: No Thoracic Surgery: No Tonsillectomy: Yes Other Surgery: Yes (RIGHT PARTIAL NEPHRECTOMY 1999,INGUINAL HERNIA 1962, TONSILLECTOMY) Social History Alcohol Use: Yes (4 MARTINIS DAILY) Tobacco Use: Yes (2 PPD) Substance Use: No Allergies-Medications (Allergen,Severity, Reaction): Coded Allergies: No Known Allergies (Verified , 08/28/16) Reported Meds & Prescriptions Reported Meds & Active Scripts Active Reported Trazodone (Trazodone HCl) 100 Mg Tablet 200 Mg PO HS Potassium Chloride Microencaps 20 Meq Tab 40 Meq PO DAILY Breo Ellipta Inh (Fluticasone/Vilanterol) 200-25 Mcg/Act Inh 1 Puff INH DAILY Use daily at the same time. Finasteride 5 Mg Tab 5 Mg PO DAILY Do not crush. Amlodipine (Amlodipine Besylate) 5 Mg Tab 5 Mg PO DAILY Doxazosin (Doxazosin Mesylate) 8 Mg Tab 8 Mg PO DAILY Metoprolol Tartrate 25 Mg Tab 25 Mg PO BID Tamsulosin (Tamsulosin HCl) 0.4 Mg Cap 0.4 Mg PO HS Review of Systems Except as stated in HPI: all other systems reviewed are Neg Physical Exam Narrative GENERAL: Well-nourished male patient, lying in bed in no acute distress SKIN: Focused skin assessment warm/dry. HEAD: Atraumatic. Normocephalic. EYES: Pupils equal and round. No scleral icterus. No injection or drainage. ENT: No nasal bleeding or discharge. Mucous membranes pink and moist. NECK: Trachea midline. No JVD. CARDIOVASCULAR: Tachycardic rate and rhythm. RESPIRATORY: Tachypneic Coarse, diminished. Breath sounds equal bilaterally. GASTROINTESTINAL: Abdomen soft, nondistended. Suprapubic tenderness to deep palpation. Hepatic and splenic margins not palpable. MUSCULOSKELETAL: No obvious deformities. No clubbing. No cyanosis. Mild right lower extremity edema. It is nonpitting. Distal pulses are palpable. NEUROLOGICAL: Awake and alert. No obvious cranial nerve deficits. Motor grossly within normal limits. Normal speech. PSYCHIATRIC: Appropriate mood and affect; insight and judgment normal. Data Data Last Documented VS Vital Signs Date Time Temp Pulse Resp B/P Pulse Ox O2 Delivery O2 Flow Rate FiO2 02/24/17 17:44 98 2 02/24/17 17:44 76 16 02/24/17 17:32 Nasal Cannula 02/24/17 16:34 98.4 Orders Complete Blood Count With Diff (02/24/17 17:21) Comprehensive Metabolic Panel (02/24/17 17:21) B-Type Natriuretic Peptide (02/24/17 17:21) Act Partial Throm Time (Ptt) (02/24/17 17:21) Prothrombin Time / Inr (Pt) (02/24/17 17:21) Magnesium (Mg) (02/24/17 17:21) Ckmb (Isoenzyme) Profile (02/24/17 17:21) Troponin I (02/24/17 17:) Urinalysis - C+S If Indicated (02/24/17:21) Iv Access Insert/Monitor (02/24/17:21) Electrocardiogram (02/24/17:21) Ecg Monitoring (02/24/17:21) Oximetry (02/24/17:) Oxygen Administration (02/24/17:) Chest, Single Ap (02/24/17:) Us Leg Venous Doppler (02/24/17 17:21) Sodium Chloride 0.9% Flush (Ns Flush) (02/24/17 17:30) Methylprednisolone So Succ Inj (Solumedr (02/24/17 17:30) Albuterol-Ipratropium Neb (Duoneb Neb) (02/24/17 17:30) Cath For Specimen (02/24/17 17:21) Urine Culture (02/24/17 17:35) Lorazepam Inj (Ativan Inj) (02/24/17 18:45) Ceftriaxone Inj (Rocephin Inj) (02/24/17 18:45) Azithromycin Inj (Zithromax Inj) (02/24/17 18:45) Sodium Chlor 0.9% 1000 Ml Inj (Ns 1000 M (02/24/17 18:45) Bladder Scan PRN (02/24/17 19:07) Lactic Acid Sepsis Protocol (02/24/17 19:21) Labs Laboratory Tests Test 02/24/17 02/24/17 17:35 17:58 Urine Color YELLOW Urine Turbidity HAZY Urine pH 6.0 Urine Specific [place] 1.016 Urine Protein 100 mg/dL Urine Glucose (UA) NEG mg/dL Urine Ketones TRACE mg/dL Urine Occult Blood SMALL Urine Nitrite NEG Urine Bilirubin NEG Urine Urobilinogen 2.0 MG/DL Urine Leukocyte Esterase LARGE Urine RBC 26 /hpf Urine WBC /hpf Urine Squamous Epithelial 1 /hpf Cells Urine Transitional Epithelial 1 /hpf Cells Urine Amorphous Sediment RARE Urine Bacteria FEW /hpf Urine Mucus FEW /lpf Microscopic Urinalysis Comment CATH-CULTURE IND White Blood Count 8.7 TH/MM3 Red Blood Count 4.50 MIL/MM3 Hemoglobin 15.4 GM/DL Hematocrit 46.1 % Mean Corpuscular Volume 102.3 FL Mean Corpuscular Hemoglobin 34.2 PG Mean Corpuscular Hemoglobin 33.4 % Concent Red Cell Distribution Width 13.5 % Platelet Count 168 TH/MM3 Mean Platelet Volume 9.5 FL Neutrophils (%) (Auto) 75.7 % Lymphocytes (%) (Auto) 13.0 % Monocytes (%) (Auto) 10.0 % Eosinophils (%) (Auto) 0.8 % Basophils (%) (Auto) 0.5 % Neutrophils # (Auto) 6.6 TH/MM3 Lymphocytes # (Auto) 1.1 TH/MM3 Monocytes # (Auto) 0.9 TH/MM3 Eosinophils # (Auto) 0.1 TH/MM3 Basophils # (Auto) 0.0 TH/MM3 CBC Comment AUTO DIFF Differential Comment AUTO DIFF CONFIRMED Platelet Estimate NORMAL Platelet Morphology Comment NORMAL Prothrombin Time 9.6 SEC Prothromb Time International 0.9 RATIO Ratio Activated Partial 27.3 SEC Thromboplast Time Sodium Level 140 MEQ/L Potassium Level 4.7 MEQ/L Chloride Level 107 MEQ/L Carbon Dioxide Level 17.7 MEQ/L Anion Gap 15 MEQ/L Blood Urea Nitrogen 18 MG/DL Creatinine 1.74 MG/DL Estimat Glomerular Filtration 39 ML/MIN Rate Random Glucose 72 MG/DL Calcium Level 9.0 MG/DL Magnesium Level 1.8 MG/DL Total Bilirubin 0.5 MG/DL Aspartate Amino Transf 18 U/L (AST/SGOT) Alanine Aminotransferase 22 U/L (ALT/SGPT) Alkaline Phosphatase 61 U/L Total Creatine Kinase 55 U/L Troponin I LESS THAN 0.02 NG/ML B-Type Natriuretic Peptide 53 PG/ML Total Protein 6.7 GM/DL Albumin 3.0 GM/DL [facility] Medical Decision Making Medical Screen Exam Complete: Yes Emergency Medical Condition: Yes Medical Record Reviewed: Yes Differential Diagnosis Sepsis versus COPD exacerbation versus pneumonia versus UTI versus electrolyte abnormality versus arrhythmia Narrative Course 72-year-old male presents to the emergency department for evaluation. Patient is tachycardic and tach. He is not febrile. He does have suprapubic tenderness to palpation. Patient is able to void bedside. Laboratory Tests Test 02/24/17 02/24/17 17:35 17:58 Urine Color YELLOW Urine Turbidity HAZY Urine pH 6.0 Urine Specific [place] 1.016 Urine Protein 100 mg/dL Urine Glucose (UA) NEG mg/dL Urine Ketones TRACE mg/dL Urine Occult Blood SMALL Urine Nitrite NEG Urine Bilirubin NEG Urine Urobilinogen 2.0 MG/DL Urine Leukocyte Esterase LARGE Urine RBC 26 /hpf Urine WBC /hpf Urine Squamous Epithelial 1 /hpf Cells Urine Transitional Epithelial 1 /hpf Cells Urine Amorphous Sediment RARE Urine Bacteria FEW /hpf Urine Mucus FEW /lpf Microscopic Urinalysis Comment CATH-CULTURE IND White Blood Count 8.7 TH/MM3 Red Blood Count 4.50 MIL/MM3 Hemoglobin 15.4 GM/DL Hematocrit 46.1 % Mean Corpuscular Volume 102.3 FL Mean Corpuscular Hemoglobin 34.2 PG Mean Corpuscular Hemoglobin 33.4 % Concent Red Cell Distribution Width 13.5 % Platelet Count 168 TH/MM3 Mean Platelet Volume 9.5 FL Neutrophils (%) (Auto) 75.7 % Lymphocytes (%) (Auto) 13.0 % Monocytes (%) (Auto) 10.0 % Eosinophils (%) (Auto) 0.8 % Basophils (%) (Auto) 0.5 % Neutrophils # (Auto) 6.6 TH/MM3 Lymphocytes # (Auto) 1.1 TH/MM3 Monocytes # (Auto) 0.9 TH/MM3 Eosinophils # (Auto) 0.1 TH/MM3 Basophils # (Auto) 0.0 TH/MM3 CBC Comment AUTO DIFF Differential Comment AUTO DIFF CONFIRMED Platelet Estimate NORMAL Platelet Morphology Comment NORMAL Prothrombin Time 9.6 SEC Prothromb Time International 0.9 RATIO Ratio Activated Partial 27.3 SEC Thromboplast Time Sodium Level 140 MEQ/L Potassium Level 4.7 MEQ/L Chloride Level 107 MEQ/L Carbon Dioxide Level 17.7 MEQ/L Anion Gap 15 MEQ/L Blood Urea Nitrogen 18 MG/DL Creatinine 1.74 MG/DL Estimat Glomerular Filtration 39 ML/MIN Rate Random Glucose 72 MG/DL Calcium Level 9.0 MG/DL Magnesium Level 1.8 MG/DL Total Bilirubin 0.5 MG/DL Aspartate Amino Transf 18 U/L (AST/SGOT) Alanine Aminotransferase 22 U/L (ALT/SGPT) Alkaline Phosphatase 61 U/L Total Creatine Kinase 55 U/L Troponin I LESS THAN 0.02 NG/ML B-Type Natriuretic Peptide 53 PG/ML Total Protein 6.7 GM/DL Albumin 3.0 GM/DL Last Impressions Lower Extremity Ultrasound 02/24/17 1721 Signed Impressions: Service Date/Time: Friday, February 24, 2017 17:44 - CONCLUSION: Normal examination. Jose Roberto Benitez Jr., MD Chest X-Ray 02/24/17 1721 Signed Impressions: Service Date/Time: Friday, February 24, 2017 17:26 - CONCLUSION: Mild left lung base atelectasis and/or infiltrate is seen. Reno Ontiveros MD CBC is without leukocytosis. CMP is without acute concern. Urinalysis is hazy with a Jamir proteinuria, trace ketones, small occult blood, large leukocyte esterase, 26 RBC, innumerable WBCs, few bacteria, few mucus. Cultures indicated. Patient is becoming tremulous. He does report drinking 4 gin "jiggers" a night. He continues to be short of breath on 2 LNC and has a pretty significant UTI. Pt is given IV rocephin and azithromycin. I have discussed the patient with my attending Dr. Chacon, who has assessed the patient. He recommends admission for IV fluid, antibiotics area patient will need to be monitored for alcohol withdrawal. Call placed to Dr. Sidhu for admission. Sepsis Criteria SIRS Criteria (2 or more): Heart rate over 90, RR > 20 or PaCO2 < 32 Criteria Outcome: Meets SIRS criteria Diagnosis Primary Impression: COPD exacerbation Additional Impressions: Urinary tract infection Qualified Code: N39.0 - Urinary tract infection with hematuria, site unspecified Alcohol abuse Admitting Information Admitting Physician Requests: Admit Condition: Stable ArguetaBalbina sinha CANDACE Feb 24, 2017 16:59
[2017-02-24 17:08] VITALS: BP 153/77; PULSE 80; RESP 24; O2SAT 98
[2017-02-24] MEDS ORDERED: SODIUM CHLORIDE 0.9% FLUSH 10 ML FLUSH IVF PRN (17:30)
[2017-02-24] MEDS ORDERED: methylPREDNISolone SOD SUCC 125 MG/2 ML VIAL IVP ONE (17:30)
[2017-02-24] MEDS: RESP: ALBUTEROL 2.5 MG/IPRATROPIUM 0.5 MG NEB (SCH) INH ×2 (17:31→17:32)
[2017-02-24 17:32] VITALS: O2SAT 97
[2017-02-24 17:44] VITALS: PULSE 76; RESP 16; O2SAT 97
--- NOTE | 2017-02-24 17:57 | RADRPT ---
EXAM DATE/TIME: 02/24/2017 17:26 [facility] COMPARISON: CHEST SINGLE AP, August 28, 2016, 16:57. INDICATIONS : Short of breath. MEDICAL HISTORY : Chronic obstructive pulmonary disease. Hypertension Coronary artery disease. SURGICAL HISTORY : None. ENCOUNTER: Initial ACUITY: 1 day PAIN SCORE: 0/10 LOCATION: Bilateral chest FINDINGS: COPD is identified. Mild left lung base atelectasis and/or infiltrate is seen. There is no appreciabl e pleural effusion for technique. Heart and mediastinum are unremarkable. CONCLUSION: Mild left lung base atelectasis and/or infiltrate is seen. Reno Ontiveros MD on February 24, 2017 at 17:55 Board Certified Radiologist. This report was verified electronically.
[2017-02-24 18:16] LABS: AUTOMATED NEUTROPHIL # 6.6 TH/MM3 (1.8-7.7); BASOPHIL % 0.5 % (0.0-2.0); EOSINOPHIL # 0.1 TH/MM3 (0-0.4); EOSINOPHIL % 0.8 % (0.0-4.0); HEMATOCRIT 46.1 % (39.0-51.0); LYMPHOCYTE # 1.1 TH/MM3 (1.0-4.8); MEAN CELL VOLUME 102.3 FL (80.0-100.0); MEAN CORPUSCULAR HEMOGLOBIN 34.2 PG (27.0-34.0); MEAN CORPUSCULAR HGB CONC 33.4 % (32.0-36.0); NEUT % 75.7 % (16.0-70.0); PLATELET COUNT 168 TH/MM3 (150-450); RED CELL DISTRIBUTION WIDTH 13.5 % (11.6-17.2); WHITE BLOOD COUNT 8.7 TH/MM3 (4.0-11.0)
[2017-02-24 18:19] LABS: BACTERIA, URINE FEW /hpf; BLOOD, URINE SMALL (NEG); GLUCOSE,URINE NEG (NEG); KETONE, URINE TRACE mg/dL (NEG); MUCUS URINE FEW /lpf (OCC); NITRITE,URINE NEG (NEG); SQUAMOUS EPITHELIAL CELL URINE 1 /hpf (0-5); TRANSITIONAL EPI CELLS, URINE 1 /hpf; URINE COLOR YELLOW (YELLW/STRAW)
[2017-02-24 18:20] LABS: COMMENT (UR) CATH-CULTURE IND; CULTURE IF INDICATED CATH CULTURE IND
[2017-02-24 18:22] LABS: HEMO FLAGS AUTO DIFF
--- NOTE | 2017-02-24 18:28 | RADRPT ---
EXAM DATE/TIME: 02/24/2017 17:44 [facility] COMPARISON: No previous studies available for comparison. INDICATIONS : Right leg swelling. MEDICAL HISTORY : Hypertension. Coronary artery disease. Right renal carcinoma. Dyspnea. COPD. Neuropathy. SURGICAL HISTORY : Tonsillectomy. Inguinal hernia repair. Right partial nephrectomy. Right leg surgery with rods. ENCOUNTER: Initial ACUITY: 1 day PAIN SCORE: 2/10 LOCATION: Right leg. TECHNIQUE: Venous ultrasound of the leg was performed from the inguinal ligament to the proximal calf. Real-nigel e, color Doppler and spectral tracing, compression and augmentation techniques were used. FINDINGS: There is normal compressibility of the deep venous system from the inguinal region to the proximal ca lf. No echogenic clot is seen in the lumen of the common femoral, femoral, popliteal, and posterior tibial veins. There is a normal response of the venous system to proximal and distal augmentation an d respiration. CONCLUSION: Normal examination. Jose Roberto Benitez Jr., MD on February 24, 2017 at 18:25 Board Certified Radiologist. This report was verified electronically.
[2017-02-24 18:30] LABS: APTT (PATIENT) 27.3 SEC (24.3-30.1); INTERNATIONAL NORMALIZED RATIO 0.9 RATIO; PROTHROMBIN TIME - PATIENT 9.6 SEC (9.8-11.6)
[2017-02-24 18:35] LABS: ANION GAP 15 MEQ/L (5-15); AST (GOT) 18 U/L (15-37); BICARBONATE 17.7 MEQ/L (21.0-32.0); BLOOD UREA NITROGEN 18 MG/DL (7-18); CHLORIDE 107 MEQ/L (98-107); GLOMERULAR FILTRATION RATE 39 ML/MIN (>89); MAGNESIUM 1.8 MG/DL (1.5-2.5); POTASSIUM 4.7 MEQ/L (3.5-5.1); SODIUM (NA) 140 MEQ/L (136-145)
[2017-02-24 18:38] LABS: ALKALINE PHOSPHATASE 61 U/L (45-117); ALT (GPT) 22 U/L (12-78); TOTAL BILIRUBIN ADULT 0.5 MG/DL (0.2-1.0)
[2017-02-24 18:41] LABS: CREATINE KINASE 55 U/L (39-308)
[2017-02-24] MEDS ORDERED: TRAZ100T6 PO (18:44)
[2017-02-24] MEDS ORDERED: cefTRIAXone INJ 1,000 MG in SODIUM CHLORIDE 0.9% INJ 100 ML IV ONE (18:45)
[2017-02-24] MEDS ORDERED: LORazepam 2 MG/ML VIAL IV PUSH ONE (18:45)
[2017-02-24] MEDS ORDERED: AZITHROMYCIN INJ 500 MG in SODIUM CHLOR 0.9% 250 ML INJ 250 ML IV ONE (18:45)
[2017-02-24] MEDS ORDERED: SODIUM CHLOR 0.9% 1000 ML INJ 1,000 ML IV ONE (18:45)
[2017-02-24 18:51] LABS: PLATELET ESTIMATE SMEAR NORMAL (NORMAL); PLATELET MORPHOLOGY NORMAL (NORMAL); SCAN/DIFF AUTO DIFF CONFIRMED
[2017-02-24] MEDS ORDERED: LORazepam 2 MG TAB PO PRN (19:45)
[2017-02-24] MEDS ORDERED: LORazepam 1 MG TAB PO PRN (19:45)
[2017-02-24] MEDS ORDERED: LORazepam 2 MG/ML VIAL IV PUSH PRN ×2 (19:45)
[2017-02-24] MEDS ORDERED: FLUMAZENIL 0.5 MG/5 ML VIAL IV PUSH PRN (19:45)
--- NOTE | 2017-02-24 20:43 | PD ---
Data Data Last Documented VS Vital Signs Date Time Temp Pulse Resp B/P Pulse Ox O2 Delivery O2 Flow Rate FiO2 02/24/17 17:44 98 2 02/24/17 17:44 76 16 02/24/17 17:32 Nasal Cannula 02/24/17 16:34 98.4 Orders Complete Blood Count With Diff (02/24/17 17:21) Comprehensive Metabolic Panel (02/24/17:21) B-Type Natriuretic Peptide (02/24/17:21) Act Partial Throm Time (Ptt) (02/24/17:21) Prothrombin Time / Inr (Pt) (02/24/17:21) Magnesium (Mg) (02/24/17:) Ckmb (Isoenzyme) Profile (02/24/17:) Troponin I (02/24/17:) Urinalysis - C+S If Indicated (02/24/17:21) Iv Access Insert/Monitor (02/24/17:21) Electrocardiogram (02/24/17:) Ecg Monitoring (02/24/17:) Oximetry (02/24/17:) Oxygen Administration (02/24/17:21) Chest, Single Ap (02/24/17:21) Us Leg Venous Doppler (02/24/17 17:21) Sodium Chloride 0.9% Flush (Ns Flush) (02/24/17 17:30) Methylprednisolone So Succ Inj (Solumedr (02/24/17 17:30) Albuterol-Ipratropium Neb (Duoneb Neb) (02/24/17 17:30) Cath For Specimen (02/24/17 17:21) Urine Culture (02/24/17 17:35) Lorazepam Inj (Ativan Inj) (02/24/17 18:45) Ceftriaxone Inj (Rocephin Inj) (02/24/17 18:45) Azithromycin Inj (Zithromax Inj) (02/24/17 18:45) Sodium Chlor 0.9% 1000 Ml Inj (Ns 1000 M (02/24/17 18:45) Bladder Scan PRN (02/24/17 19:07) Lactic Acid Sepsis Protocol (02/24/17 19:21) Admit Order (Ed Use Only) (02/24/17 19:40) Alcohol Withdrawal Asmt-Ciwa [id number] (02/24/17 19:40) Flumazenil Inj (Romazicon Inj) (02/24/17 19:45) Lorazepam (Ativan) (02/24/17 19:45) Lorazepam Inj (Ativan Inj) (02/24/17 19:45) Lorazepam (Ativan) (02/24/17 19:45) Lorazepam Inj (Ativan Inj) (02/24/17 19:45) Lorazepam Inj (Ativan Inj) (02/24/17 19:45) Lorazepam Inj (Ativan Inj) (02/24/17 19:45) Consult Pulmonology (02/24/17 ) Diet Heart Healthy (02/25/17 Breakfast) Activity Oob With Assistance (02/24/17 19:40) Blood Glucose (02/24/17 19:44) Labs Laboratory Tests Test 02/24/17 02/24/17 02/24/17 17:35 17:58 19:32 Urine Color YELLOW Urine Turbidity HAZY Urine pH 6.0 Urine Specific [place] 1.016 Urine Protein 100 mg/dL Urine Glucose (UA) NEG mg/dL Urine Ketones TRACE mg/dL Urine Occult Blood SMALL Urine Nitrite NEG Urine Bilirubin NEG Urine Urobilinogen 2.0 MG/DL Urine Leukocyte Esterase LARGE Urine RBC 26 /hpf Urine WBC /hpf Urine Squamous Epithelial 1 /hpf Cells Urine Transitional Epithelial 1 /hpf Cells Urine Amorphous Sediment RARE Urine Bacteria FEW /hpf Urine Mucus FEW /lpf Microscopic Urinalysis Comment CATH-CULTURE IND White Blood Count 8.7 TH/MM3 Red Blood Count 4.50 MIL/MM3 Hemoglobin 15.4 GM/DL Hematocrit 46.1 % Mean Corpuscular Volume 102.3 FL Mean Corpuscular Hemoglobin 34.2 PG Mean Corpuscular Hemoglobin 33.4 % Concent Red Cell Distribution Width 13.5 % Platelet Count 168 TH/MM3 Mean Platelet Volume 9.5 FL Neutrophils (%) (Auto) 75.7 % Lymphocytes (%) (Auto) 13.0 % Monocytes (%) (Auto) 10.0 % Eosinophils (%) (Auto) 0.8 % Basophils (%) (Auto) 0.5 % Neutrophils # (Auto) 6.6 TH/MM3 Lymphocytes # (Auto) 1.1 TH/MM3 Monocytes # (Auto) 0.9 TH/MM3 Eosinophils # (Auto) 0.1 TH/MM3 Basophils # (Auto) 0.0 TH/MM3 CBC Comment AUTO DIFF Differential Comment AUTO DIFF CONFIRMED Platelet Estimate NORMAL Platelet Morphology Comment NORMAL Prothrombin Time 9.6 SEC Prothromb Time International 0.9 RATIO Ratio Activated Partial 27.3 SEC Thromboplast Time Sodium Level 140 MEQ/L Potassium Level 4.7 MEQ/L Chloride Level 107 MEQ/L Carbon Dioxide Level 17.7 MEQ/L Anion Gap 15 MEQ/L Blood Urea Nitrogen 18 MG/DL Creatinine 1.74 MG/DL Estimat Glomerular Filtration 39 ML/MIN Rate Random Glucose 72 MG/DL Calcium Level 9.0 MG/DL Magnesium Level 1.8 MG/DL Total Bilirubin 0.5 MG/DL Aspartate Amino Transf 18 U/L (AST/SGOT) Alanine Aminotransferase 22 U/L (ALT/SGPT) Alkaline Phosphatase 61 U/L Total Creatine Kinase 55 U/L Troponin I LESS THAN 0.02 NG/ML B-Type Natriuretic Peptide 53 PG/ML Total Protein 6.7 GM/DL Albumin 3.0 GM/DL Lactic Acid Level 1.2 mmol/L [facility] Supervised Visit with MAXINE: Yes Narrative Course The history, exam, and medical decision-making in the associated mid-level provider note were completed with my assistance. I reviewed and agree with the findings presented. I attest that I had a [id number] encounter with the patient on the same day, and personally performed and documented my assessment and findings in the medical record. *My assessment and Findings: This 72 old man who presented to the emergency department with urinary difficulty, feelings of needing to go all the time with dysuria, polyuria, and some lower abdominal discomfort. He also little loose stool. His history of COPD and at some shortness of breath as well. Workup reveals that he has a UTI. No obvious urinary retention. He was able to go here. He may have some element of chronic retention leading to a urinary tract infection. He also has some element of COPD exacerbation although this appears to be a secondary complaint. He looks improved after medications. He drinks alcohol daily and is starting to have some shakes and withdrawal symptoms. He looks very dehydrated. We'll give him IV fluids, IV antibiotics, patient be admitted for IV fluids, treatment of COPD exacerbation, treatment for prevention of alcohol withdrawal. Diagnosis Primary Impression: COPD exacerbation Additional Impressions: Urinary tract infection Qualified Code: N39.0 - Urinary tract infection with hematuria, site unspecified Alcohol abuse Condition: Darius Deutsch MD Feb 24, 2017 20:43
--- NOTE | 2017-02-24 21:39 | EKG ---
Date Performed: 02/24/2017 Time Performed: 18:15:14 PTAGE: 72 years EKG: Sinus rhythm NORMAL ECG PREVIOUS TRACING : 08/28/2016 16.41 Compared to prior tracing no significant change DOCTOR: Immanuel Zazueta Interpretating Date/Time 02/24/2017 21:39:03
[2017-02-24] MEDS ORDERED: SENNOSIDES 8.6 MG TAB PO PRN (21:45)
[2017-02-24] MEDS ORDERED: SODIUM CHLORIDE 0.9% FLUSH 10 ML FLUSH IV FLUSH PRN (21:45)
[2017-02-24] MEDS ORDERED: BISACODYL 10 MG SUPP RECTAL PRN (21:45)
[2017-02-24] MEDS ORDERED: LACTULOSE SYRUP 20 GM/30 ML CUP PO PRN (21:45)
[2017-02-24] MEDS ORDERED: NALOXONE HCL 0.4 MG/ML AMP IV PRN (21:45)
[2017-02-24] MEDS ORDERED: MAGNESIUM HYDROXIDE SUSP 30 ML CUP PO PRN (21:45)
[2017-02-24 21:51] VITALS: BP 155/92; PULSE 100; RESP 22; O2SAT 95
[2017-02-25] VITALS (22 sets, daily range): BP systolic 149–186; BP diastolic 74–92; PULSE 60–108; RESP 17–23; TEMP 97.6–97.9; O2SAT 93–99
[2017-02-25] MEDS: LORazepam 2 MG/ML VIAL IV PUSH PRN ×4 (03:20→21:12)
[2017-02-25 05:31] LABS: AUTOMATED NEUTROPHIL # 5.8 TH/MM3 (1.8-7.7); BASOPHIL % 0.1 % (0.0-2.0); HEMATOCRIT 42.6 % (39.0-51.0); LYMPH % 5.1 % (9.0-44.0); LYMPHOCYTE # 0.3 TH/MM3 (1.0-4.8); MEAN CELL VOLUME 101.5 FL (80.0-100.0); MEAN CORPUSCULAR HEMOGLOBIN 34.3 PG (27.0-34.0); MEAN CORPUSCULAR HGB CONC 33.8 % (32.0-36.0); MONO % 0.9 % (0.0-8.0); NEUT % 93.9 % (16.0-70.0); PLATELET COUNT 147 TH/MM3 (150-450); RED BLOOD COUNT 4.19 MIL/MM3 (4.50-5.90); RED CELL DISTRIBUTION WIDTH 13.1 % (11.6-17.2); WHITE BLOOD COUNT 6.1 TH/MM3 (4.0-11.0)
[2017-02-25 05:34] LABS: HEMO FLAGS AUTO DIFF
[2017-02-25 05:58] LABS: INDIRECT BILIRUBIN 0.3 MG/DL (0.0-0.8); TOTAL BILIRUBIN ADULT 0.4 MG/DL (0.2-1.0)
[2017-02-25 07:42] LABS: BANDS 3 % (0-6); METAMYELOCYTES 2 % (0-1); MYELOCYTES 1 % (0-0); NEUTROPHIL # MANUAL DIFF 5.7 TH/MM3 (1.8-7.7); POLYS (SEG NEUTROPHILS) 88 % (16-70); WBC DIFF SAMPLE 100
[2017-02-25 07:43] LABS: HYPERSEGMENTED POLYS 1+ (NORMAL); PLATELET ESTIMATE SMEAR NORMAL (NORMAL); PLATELET MORPHOLOGY NORMAL (NORMAL); SCAN/DIFF FINAL DIFF MANUAL
[2017-02-25] MEDS: FINASTERIDE 5 MG TAB PO SCH (08:13)
[2017-02-25] MEDS: POTASSIUM CHLORIDE 20 MEQ CONTROLLED RELEASE TAB PO SCH (08:13)
[2017-02-25] MEDS: DOCUSATE SODIUM 50 MG/SENNA 8.6 MG TAB PO SCH ×2 (08:13→21:13)
[2017-02-25] MEDS: SODIUM CHLORIDE 0.9% FLUSH 10 ML FLUSH IV FLUSH SCH ×2 (08:13→21:12)
[2017-02-25] MEDS: DOXAZOSIN MESYLATE 4 MG TAB PO SCH (08:15)
[2017-02-25] MEDS: FLUTICASONE 200 MCG/VILANTEROL 25 MCG INHALER INH SCH (08:16)
[2017-02-25] MEDS ORDERED: METOPROLOL TARTRATE 25 MG TAB PO SCH (09:00)
[2017-02-25] MEDS ORDERED: amLODIPine BESYLATE 5 MG TAB PO SCH (09:00)
[2017-02-25] MEDS: RESP: ALBUTEROL 2.5 MG/IPRATROPIUM 0.5 MG NEB (SCH) NEB ×2 (14:24→20:00)
--- NOTE | 2017-02-25 14:41 | HHI.HP ---
History of Present Illness Service Family medicine Primary Care Physician Tez Sidhu, DO Admission Diagnosis SIRS; COPD EXACERBATION; UTI; PNEUMONIA; ETOH WITHDRAWAL Diagnoses: (1) Urinary tract infection (2) COPD exacerbation Diagnosis: Principal (3) Alcohol abuse Diagnosis: Principal (4) Chronic renal disease Diagnosis: Secondary (5) Hypertension Diagnosis: Principal (6) Weakness Diagnosis: Principal History of Present Illness 72-year-old male with history of CAD, hypertension, COPD, BPH, alcohol dependency, tobacco dependency, presents to the emergency department for evaluation of worsening shortness of breath, urinary retention, and generalized weakness worsening of the last few days. Patient states over the last few nights he has voided multiple times but only small amounts. He states his urine streams have been painful before starting and it finished but not during the actual void. Denies any fever or chills. He does report some suprapubic discomfort. Denies any chest pain. No fever. He has felt chilled. He has no other symptoms to report. Review of Systems Constitutional: COMPLAINS OF: Fatigue, Chills Respiratory: COMPLAINS OF: Cough, Shortness of breath Cardiovascular: COMPLAINS OF: Lower Extremity Edema, DENIES: Chest pain, Palpitations Gastrointestinal: DENIES: Abdominal pain, Bloody stools, Constipation, Diarrhea Genitourinary: COMPLAINS OF: Urinary frequency, Hematuria, Dysuria, Nocturia Neurologic: COMPLAINS OF: Poor Balance Psychiatric: COMPLAINS OF: Anxiety Past Family Social History Allergies: Coded Allergies: No Known Allergies (Verified , 08/28/16) Past Medical History right kidney cancer 2001 CAD BPH HTN COPD Past Surgical History Left inguinal hernia repair right partial nephrectomy tonsillectomy Active Ordered Medications Current Medications Medications (Trade) Dose Ordered Sig/Nayeli Route Start Time Stop Time Status Last Admin (NS Flush) 2 ml UNSCH PRN IVF 02/24/17 17:30 (Romazicon Inj) 0.2 mg Q1M PRN IV PUSH 02/24/17 19:45 (Ativan) 1 mg Q4H PRN PO 02/24/17 19:45 (Ativan Inj) 1 mg Q4H PRN IV PUSH 02/24/17 19:45 02/25/17 13:16 (Ativan) 2 mg Q2H PRN PO 02/24/17 19:45 (Ativan Inj) 2 mg Q2H PRN IV PUSH 02/24/17 19:45 (Ativan Inj) 2 mg Q1H PRN IV PUSH 02/24/17 19:45 (Ativan Inj) 2 mg Q15M PRN IV PUSH 02/24/17 19:45 (NS Flush) 2 ml UNSCH PRN IV FLUSH 02/24/17 21:45 (NS Flush) 2 ml BID IV FLUSH 02/25/17 09:00 02/25/17 08:13 (Narcan Inj) 0.4 mg UNSCH PRN IV 02/24/17 21:45 (Elvie-Colace) 1 tab BID PO 02/25/17 09:00 02/25/17 08:13 (Milk Of Magnesia Liq) 30 ml Q12H PRN PO 02/24/17 21:45 (Senokot) 17.2 mg Q12H PRN PO 02/24/17 21:45 (Dulcolax Supp) 10 mg DAILY PRN RECTAL 02/24/17 21:45 (Lactulose Liq) 30 ml DAILY PRN PO 02/24/17 21:45 (Cardura) 8 mg DAILY PO 02/25/17 09:00 02/25/17 08:15 (Proscar) 5 mg DAILY PO 02/25/17 09:00 02/25/17 08:13 (Breo Ellipta 200-25 Inh) 1 puff DAILY INH 02/25/17 09:00 (Lopressor) 25 mg BID PO 02/25/17 09:00 02/25/17 08:15 (KCl) 40 meq DAILY PO 02/25/17 09:00 02/25/17 08:13 (Flomax) 0.4 mg HS PO 02/25/17 21:00 Trazodone HCl 200 mg 200 mg HS PO 02/25/17 21:00 Azithromycin 500 mg/Sodium Chloride 250 ml @ 250 mls/hr Q24H IV 02/25/17 20:00 (Rocephin Inj/NS Inj) 100 ml @ 200 mls/hr Q24H IV 02/25/17 18:00 (SoluMEDROL INJ) 60 mg Q12HR IV PUSH 02/25/17 21:00 (Norvasc) 10 mg DAILY PO 02/26/17 09:00 Social History 4 drinks nightly 2 packs of cigarettes daily lives alone retired Physical Exam Vital Signs Vital Signs Date Time Temp Pulse Resp B/P Pulse Ox O2 Delivery O2 Flow Rate FiO2 02/25/17 14:14 173/92 02/25/17 12:52 97.7 88 22 174/90 98 02/25/17 12:40 97.8 87 18 150/83 99 Nasal Cannula 2 02/25/17 10:35 97.9 87 18 170/85 98 Nasal Cannula 2 02/25/17 09:19 97.8 91 18 162/83 98 Nasal Cannula 2 02/25/17 07:44 96 18 98 2 02/25/17 07:44 98 Nasal Cannula 2 02/25/17 07:44 97.6 96 18 173/89 98 Nasal Cannula 2 02/25/17 07:44 18 98 Nasal Cannula 2 02/25/17 06:42 91 22 164/86 95 Nasal Cannula 1 02/25/17 04:02 70 17 155/74 97 Nasal Cannula 1 02/25/17 03:18 108 22 186/91 95 Nasal Cannula 1 02/25/17 02:14 108 23 176/88 98 Nasal Cannula 1 02/24/17 21:51 100 22 155/92 95 Nasal Cannula 1 02/24/17 17:44 98 2 02/24/17 17:44 76 16 97 02/24/17 17:32 97 Nasal Cannula 2.00 02/24/17 17:08 80 24 153/77 98 Room Air 02/24/17 16:34 98.4 122 28 102/59 96 Physical Exam GENERAL: Well-nourished male patient, lying in bed in no acute distress SKIN: warm/dry. HEAD: Atraumatic. Normocephalic. EYES: Pupils equal and round. No scleral icterus. No injection or drainage. ENT: No nasal bleeding or discharge. Mucous membranes pink and moist. NECK: Trachea midline. No JVD. CARDIOVASCULAR: Rate and rhythm regular RESPIRATORY: Lung sounds coarse, diminished. Breath sounds equal bilaterally. GASTROINTESTINAL: Abdomen soft, nondistended. Suprapubic tenderness to deep palpation. Hepatic and splenic margins not palpable. MUSCULOSKELETAL: No obvious deformities. No clubbing. No cyanosis. Mild right lower extremity edema. It is nonpitting. Distal pulses are palpable. NEUROLOGICAL: Awake and alert. No obvious cranial nerve deficits. Motor grossly within normal limits. Normal speech. PSYCHIATRIC: Appropriate mood and affect; insight and judgment normal. Laboratory Laboratory Tests Test 02/24/17 02/24/17 02/24/17 02/25/17 17:35 17:58 19:32 04:49 Urine Color YELLOW Urine Turbidity HAZY Urine pH 6.0 Urine Specific [place] 1.016 Urine Protein 100 Urine Glucose (UA) NEG Urine Ketones TRACE Urine Occult Blood SMALL Urine Nitrite NEG Urine Bilirubin NEG Urine Urobilinogen 2.0 Urine Leukocyte Esterase LARGE Urine RBC 26 Urine WBC Urine Squamous Epithelial 1 Cells Urine Transitional Epithelial 1 Cells Urine Amorphous Sediment RARE Urine Bacteria FEW Urine Mucus FEW Microscopic Urinalysis Comment CATH-CULTURE IND White Blood Count 8.7 6.1 Red Blood Count 4.50 4.19 Hemoglobin 15.4 14.4 Hematocrit 46.1 42.6 Mean Corpuscular Volume 102.3 101.5 Mean Corpuscular Hemoglobin 34.2 34.3 Mean Corpuscular Hemoglobin 33.4 33.8 Concent Red Cell Distribution Width 13.5 13.1 Platelet Count 168 147 Mean Platelet Volume 9.5 9.3 Neutrophils (%) (Auto) 75.7 93.9 Lymphocytes (%) (Auto) 13.0 5.1 Monocytes (%) (Auto) 10.0 0.9 Eosinophils (%) (Auto) 0.8 0.0 Basophils (%) (Auto) 0.5 0.1 Neutrophils # (Auto) 6.6 5.8 Lymphocytes # (Auto) 1.1 0.3 Monocytes # (Auto) 0.9 0.1 Eosinophils # (Auto) 0.1 0.0 Basophils # (Auto) 0.0 0.0 CBC Comment AUTO DIFF AUTO DIFF Differential Comment AUTO DIFF FINAL DIFF CONFIRMED MANUAL Platelet Estimate NORMAL NORMAL Platelet Morphology Comment NORMAL NORMAL Prothrombin Time 9.6 Prothromb Time International 0.9 Ratio Activated Partial 27.3 Thromboplast Time Sodium Level 140 Potassium Level 4.7 Chloride Level 107 Carbon Dioxide Level 17.7 Anion Gap 15 Blood Urea Nitrogen 18 Creatinine 1.74 Estimat Glomerular Filtration 39 Rate Random Glucose 72 Calcium Level 9.0 Magnesium Level 1.8 Total Bilirubin 0.5 0.4 Aspartate Amino Transf 18 14 (AST/SGOT) Alanine Aminotransferase 22 21 (ALT/SGPT) Alkaline Phosphatase 61 58 Total Creatine Kinase 55 Troponin I LESS THAN 0.02 B-Type Natriuretic Peptide 53 Total Protein 6.7 6.2 Albumin 3.0 2.7 Lactic Acid Level 1.2 Differential Total Cells 100 Counted Neutrophils % (Manual) 88 Band Neutrophils % 3 Lymphocytes % 6 Neutrophils # (Manual) 5.7 Metamyelocytes 2 Myelocytes 1 Hypersegmented Polys 1+ Red Cell Morphology Comment NORMAL Direct Bilirubin 0.1 Indirect Bilirubin 0.3 Lipase 113 Date/Time Procedure Status Source Growth 02/24/17 17:35 Urine Culture Received Urine Catheterized Urine Pending Result Diagram: 02/25/17 0449 02/24/17 1758 Imaging Last 72 hours Impressions Lower Extremity Ultrasound 02/24/17 1721 Signed Impressions: Service Date/Time: Friday, February 24, 2017 17:44 - CONCLUSION: Normal examination. Jose Roberto Benitez Jr., MD Chest X-Ray 02/24/17 172 Signed Impressions: Service Date/Time: Friday, February 24, 2017 17:26 - CONCLUSION: Mild left lung base atelectasis and/or infiltrate is seen. Reno Ontiveros MD Assessment and Plan Problem List: (1) COPD exacerbation Status: Acute Plan: Pulmonary consulted. Rocephin and Azithromycin continued. O@ 2 liters NC. Steroids and breathing treatments added. (2) Hypertension Status: Acute Plan: Patient HTN with SBP in the 170's. Amlodipine and metoprolol increased. Vasotec PRN (3) Chronic renal disease Status: Acute Plan: Patient with CKD will monitor and avoid nephro toxins. Appears to be baseline (4) Alcohol abuse Status: Acute Plan: Patient drinks 4 drinks per day. CIWA protocol in place (5) Urinary tract infection Status: Acute Plan: UA abnormal culture pending. Rocephin started. (6) Tobacco abuse Status: Acute Plan: Smoking cessation discussed (7) Weakness Status: Acute Plan: PT ordered for tomorrow (8) BPH (benign prostatic hyperplasia) Status: Acute Plan: On Flomax and doxazosin will monitor urinary output. Assessment and Plan Assessment and plan discussed with DR. Nahum NAVARRETE Discussed Condition With Nursing Discharge Planning To be determined Physician Attestation I and the FINISH PAINTER have both examined this patient and reviewed this note and I agree with these findings and plan of care. Tez Sidhu DO Problem Qualifiers (1) Urinary tract infection: Qualified Code: N39.0 - Urinary tract infection with hematuria, site unspecified Raysa Bhakta [facility] Feb 25, 2017 14:41
[2017-02-25] MEDS: ENALAPRILAT 1.25 MG/ML VIAL IV PUSH PRN (15:25)
[2017-02-25] MEDS: ENOXAPARIN SODIUM 40 MG/0.4 ML SYRINGE SQ SCH (15:25)
[2017-02-25 16:32] LABS: AUTOMATED NEUTROPHIL # 6.4 TH/MM3 (1.8-7.7); BASOPHIL % 0.4 % (0.0-2.0); EOSINOPHIL % 0.2 % (0.0-4.0); HEMATOCRIT 42.9 % (39.0-51.0); LYMPH % 7.4 % (9.0-44.0); LYMPHOCYTE # 0.6 TH/MM3 (1.0-4.8); MEAN CELL VOLUME 99.3 FL (80.0-100.0); MEAN CORPUSCULAR HEMOGLOBIN 35.1 PG (27.0-34.0); MEAN CORPUSCULAR HGB CONC 35.3 % (32.0-36.0); MONO % 6.5 % (0.0-8.0); NEUT % 85.5 % (16.0-70.0); PLATELET COUNT 158 TH/MM3 (150-450); RED BLOOD COUNT 4.32 MIL/MM3 (4.50-5.90); RED CELL DISTRIBUTION WIDTH 13.1 % (11.6-17.2); WHITE BLOOD COUNT 7.5 TH/MM3 (4.0-11.0)
[2017-02-25 16:33] LABS: HEMO FLAGS AUTO DIFF
--- NOTE | 2017-02-25 16:50 | MB ---
cc: BEATRIZ TRACY DATE OF CONSULTATION 02/25/[address] Sidhu. REASON FOR CONSULTATION Evaluation for shortness of breath and possible pneumonia. PRESENT ILLNESS Mr. Otto is a pleasant 72-year-old male with history of COPD. He uses Combivent inhaler at home. He came to the hospital with complaint of diarrhea for 2 or 3 days and he had constipation. He also has difficulty passing urine. No burning. No blood in the urine. Denies any fever or chills. No night sweats. No abdominal pain. Has wheezing and shortness of breath. Has cough and congestion. With these symptoms he came to the hospital. He had a workup done. LABORATORY DATA His CBC showed WBC count 8.7, hemoglobin 15.4, hematocrit 46.1, MCV 102, platelet count 168. His sodium is 140, potassium 4.7, chloride 107, CO2 17, BUN 18, creatinine 1.74. His INR is 0.9. IMAGING Chest x-ray shows left basilar atelectasis or infiltrate. PAST MEDICAL HISTORY Significant for: 1. A history of COPD. 2. Hypertension. 3. Coronary artery disease. 4. CA of the kidney status post right partial nephrectomy. 5. History of inguinal hernia surgery. MEDICATIONS He is currently takin. Amlodipine 10 mg a day. 2. Flomax 0.4 milligrams daily. 3. Trazodone 200 mg at night. 4. Solu-Medrol 60 mg q.8 h. 5. Metoprolol 50 mg twice a day. 6. Famotidine 20 milligrams twice a day. 7. Zithromax 250 mg a day. 8. Rocephin 1 gram a day. 9. Lovenox 40 mg a day. 10. Enalapril as needed. 11. Albuterol and Atrovent nebulizer treatment. 12. Breo Ellipta 200/25. 14. Cardura 8 milligrams daily. 15. Finasteride 5 milligrams daily. ALLERGIES NO KNOWN DRUG ALLERGIES. SOCIAL HISTORY He lives alone. 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 He has a long history of smoking for more than 50 years, he continues to smoke two packs a day and he drinks 4 ounces of liquor. FAMILY HISTORY He has two children. REVIEW OF SYSTEMS Normally he is up around and active. Denies any weight loss. No headache or dizziness. No fever. No DVT or pulmonary embolism. PHYSICAL EXAMINATION GENERAL: Well-developed, well-nourished male, a rather poor historian. Not in acute distress. VITAL SIGNS: Blood pressure 168/86, heart rate 90, respirations 17, temperature 97.7. HEENT: Examination he has a right eye cataract surgery done. He has a cataract in the left eye. Pupils are equal and reactive to light. NECK: Supple. No JVD. CHEST: Air entry equal bilaterally. He has expiratory rhonchi. CARDIOVASCULAR: S1-S2 normal. ABDOMEN: Soft, nondistended. Bowel sounds are present. EXTREMITIES: No edema. IMPRESSION 1. COPD exacerbation. 2. Left basilar atelectasis or pneumonia. 3. Recent diarrhea. 4. History of renal cell carcinoma status post right partial nephrectomy. 5. Nicotine use. 6. Alcohol use. PLAN We will continue the aerosol treatment. He does not like taking nebulizer treatment. I will put him on Combivent two puffs four times daily, Breo Ellipta once a day. Continue IV Solu-Medrol and antibiotics. Repeat CBC and BMP in the morning. Further treatment will depend on the course in the hospital. Thank you Dr. Sidhu for this consultation. MD LAURA Chapman/NABILA /3:39 PM /4:34 PM RAMÓN
[2017-02-25 16:53] LABS: BICARBONATE 24.9 MEQ/L (21.0-32.0); POTASSIUM 4.6 MEQ/L (3.5-5.1)
[2017-02-25] MEDS ORDERED: cefTRIAXone INJ 1,000 MG in SODIUM CHLORIDE 0.9% INJ 100 ML IV SCH (18:00)
[2017-02-25 18:05] LABS: SCAN/DIFF AUTO DIFF CONFIRMED
[2017-02-25 18:06] LABS: PLATELET ESTIMATE SMEAR NORMAL (NORMAL); PLATELET MORPHOLOGY NORMAL (NORMAL)
[2017-02-25] MEDS ORDERED: AZITHROMYCIN INJ 500 MG in SODIUM CHLOR 0.9% 250 ML INJ 250 ML IV SCH (20:00)
[2017-02-25] MEDS: traZODone HCL 100 MG TAB PO SCH (21:13)
[2017-02-25] MEDS: TAMSULOSIN HCL 0.4 MG CAP PO SCH (21:13)
[2017-02-25] MEDS: FAMOTIDINE 20 MG TAB PO SCH (21:13)
[2017-02-25] MEDS: METOPROLOL TARTRATE 50 MG TAB PO SCH (21:14)
[2017-02-25] MEDS: methylPREDNISolone SOD SUCC 125 MG/2 ML VIAL IV PUSH SCH (21:14)
[2017-02-26] VITALS (21 sets, daily range): BP systolic 138–179; BP diastolic 75–91; PULSE 50–125; RESP 20; TEMP 97.4–98.2; O2SAT 92–96
[2017-02-26] MEDS: LORazepam 2 MG/ML VIAL IV PUSH PRN (03:22)
[2017-02-26] MEDS: ALBUTEROL SULFATE 90 MCG/ACT HFA 18 GM INHALER INH SCH ×3 (06:00→18:00)
[2017-02-26 07:00] LABS: BASOPHIL % 0.1 % (0.0-2.0); EOSINOPHIL % 0.1 % (0.0-4.0); HEMATOCRIT 43.6 % (39.0-51.0); LYMPH % 6.7 % (9.0-44.0); LYMPHOCYTE # 0.4 TH/MM3 (1.0-4.8); MEAN CELL VOLUME 101.4 FL (80.0-100.0); MEAN CORPUSCULAR HEMOGLOBIN 34.5 PG (27.0-34.0); MONO % 1.7 % (0.0-8.0); NEUT % 91.4 % (16.0-70.0); PLATELET COUNT 139 TH/MM3 (150-450); RED CELL DISTRIBUTION WIDTH 13.3 % (11.6-17.2); WHITE BLOOD COUNT 6.6 TH/MM3 (4.0-11.0)
[2017-02-26 07:08] LABS: HEMO FLAGS AUTO DIFF
[2017-02-26 07:27] LABS: ALT (GPT) 19 U/L (12-78); ANION GAP 9 MEQ/L (5-15); AST (GOT) 15 U/L (15-37); BICARBONATE 24.1 MEQ/L (21.0-32.0); BLOOD UREA NITROGEN 19 MG/DL (7-18); CHLORIDE 107 MEQ/L (98-107); GLOMERULAR FILTRATION RATE 52 ML/MIN (>89); POTASSIUM 4.1 MEQ/L (3.5-5.1); SODIUM (NA) 140 MEQ/L (136-145)
[2017-02-26 07:30] LABS: ALKALINE PHOSPHATASE 52 U/L (45-117); TOTAL BILIRUBIN ADULT 0.3 MG/DL (0.2-1.0)
[2017-02-26] MEDS: RESP: ALBUTEROL 2.5 MG/IPRATROPIUM 0.5 MG NEB (SCH) NEB ×3 (08:00→20:14)
[2017-02-26 08:17] LABS: BANDS 11 % (0-6); MYELOCYTES 3 % (0-0); NEUTROPHIL # MANUAL DIFF 5.8 TH/MM3 (1.8-7.7); POLYS (SEG NEUTROPHILS) 74 % (16-70); WBC DIFF SAMPLE 100
[2017-02-26 08:18] LABS: PLATELET ESTIMATE SMEAR NORMAL (NORMAL); PLATELET MORPHOLOGY NORMAL (NORMAL)
[2017-02-26 08:20] LABS: SCAN/DIFF FINAL DIFF MANUAL
[2017-02-26] MEDS: FLUTICASONE 200 MCG/VILANTEROL 25 MCG INHALER INH SCH (09:00)
[2017-02-26] MEDS: FAMOTIDINE 20 MG TAB PO SCH ×2 (09:08→20:57)
[2017-02-26] MEDS: DOXAZOSIN MESYLATE 4 MG TAB PO SCH (09:08)
[2017-02-26] MEDS: POTASSIUM CHLORIDE 20 MEQ CONTROLLED RELEASE TAB PO SCH (09:09)
[2017-02-26] MEDS: FINASTERIDE 5 MG TAB PO SCH (09:09)
[2017-02-26] MEDS: METOPROLOL TARTRATE 50 MG TAB PO SCH ×2 (09:09→20:57)
[2017-02-26] MEDS: methylPREDNISolone SOD SUCC 125 MG/2 ML VIAL IV PUSH SCH ×2 (09:11→20:56)
[2017-02-26] MEDS: SODIUM CHLORIDE 0.9% FLUSH 10 ML FLUSH IV FLUSH SCH ×2 (09:12→21:01)
[2017-02-26] MEDS: DOCUSATE SODIUM 50 MG/SENNA 8.6 MG TAB PO SCH ×2 (09:12→21:00)
--- NOTE | 2017-02-26 13:59 | HHI.PR ---
Subjective Remarks Patient denies any CP or SOB. Objective Vital Signs Date Time Temp Pulse Resp B/P Pulse Ox O2 Delivery O2 Flow Rate FiO2 02/26/17 13:00 87 02/26/17 12:00 98 02/26/17 11:49 98.2 50 20 138/78 92 02/26/17 11:00 100 02/26/17 10:00 100 02/26/17 09:00 92 02/26/17 08:00 94 02/26/17 08:00 98.0 50 20 157/81 92 02/26/17 07:00 58 02/26/17 05:00 52 02/26/17 04:00 97.4 62 20 163/82 95 02/26/17 04:00 62 02/26/17 03:00 60 02/26/17 02:00 60 02/26/17 01:00 58 02/26/17 00:00 97.6 58 20 151/80 92 02/26/17 00:00 58 02/25/17 23:00 60 02/25/17 22:00 66 02/25/17 21:00 68 02/25/17 20:00 62 02/25/17 20:00 97.9 65 18 149/74 97 02/25/17 18:00 74 02/25/17 17:00 96 02/25/17 16:00 83 02/25/17 15:30 97.7 90 17 168/86 93 02/25/17 15:00 94 02/25/17 14:40 96 21 02/25/17 14:24 99 Nasal Cannula 2.00 02/25/17 14:14 173/92 02/25/17 14:12 92 I/O 02/25/17 02/25/17 02/25/17 02/26/17 02/26/17 02/26/17 07:00 15:00 23:00 07:00 15:00 23:00 Intake Total 300 ml 240 ml 200 ml Output Total 1500 ml 350 ml Balance -1200 ml -110 ml 200 ml Intake Oral 300 ml 240 ml 200 ml Output Urine Total 1500 ml 350 ml # Voids 2 6 # Bowel Movements 0 Result Diagram: 02/26/17 0527 02/26/17 05 Imaging Last 72 hours Impressions Lower Extremity Ultrasound 02/24/17 7991 Signed Impressions: Service Date/Time: Friday, February 24, 2017 17:44 - CONCLUSION: Normal examination. Jose Roberto Benitez Jr., MD Chest X-Ray 02/24/17 1721 Signed Impressions: Service Date/Time: Friday, February 24, 2017 17:26 - CONCLUSION: Mild left lung base atelectasis and/or infiltrate is seen. Reno Ontiveros MD Medications and IVs Current Medications Medications (Trade) Dose Ordered Sig/Nayeli Route Start Time Stop Time Status Last Admin (NS Flush) 2 ml UNSCH PRN IVF 02/24/17 17:30 (Romazicon Inj) 0.2 mg Q1M PRN IV PUSH 02/24/17 19:45 (Ativan) 1 mg Q4H PRN PO 02/24/17 19:45 02/25/17 17:00 (Ativan Inj) 1 mg Q4H PRN IV PUSH 02/24/17 19:45 02/25/17 13:16 (Ativan) 2 mg Q2H PRN PO 02/24/17 19:45 (Ativan Inj) 2 mg Q2H PRN IV PUSH 02/24/17 19:45 (Ativan Inj) 2 mg Q1H PRN IV PUSH 02/24/17 19:45 02/26/17 03:22 (Ativan Inj) 2 mg Q15M PRN IV PUSH 02/24/17 19:45 (NS Flush) 2 ml UNSCH PRN IV FLUSH 02/24/17 21:45 (NS Flush) 2 ml BID IV FLUSH 02/25/17 09:00 02/26/17 09:12 (Narcan Inj) 0.4 mg UNSCH PRN IV 02/24/17 21:45 (Elvie-Colace) 1 tab BID PO 02/25/17 09:00 02/26/17 09:12 (Milk Of Magnesia Liq) 30 ml Q12H PRN PO 02/24/17 21:45 (Senokot) 17.2 mg Q12H PRN PO 02/24/17 21:45 (Dulcolax Supp) 10 mg DAILY PRN RECTAL 02/24/17 21:45 (Lactulose Liq) 30 ml DAILY PRN PO 02/24/17 21:45 (Cardura) 8 mg DAILY PO 02/25/17 09:00 02/26/17 09:08 (Proscar) 5 mg DAILY PO 02/25/17 09:00 02/26/17 09:09 (Breo Ellipta 200-25 Inh) 1 puff DAILY INH 02/25/17 09:00 (KCl) 40 meq DAILY PO 02/25/17 09:00 02/26/17 09:09 (Flomax) 0.4 mg HS PO 02/25/17 21:00 02/25/17 21:13 Trazodone HCl 200 mg 200 mg HS PO 02/25/17 21:00 02/25/17 21:13 Azithromycin 500 mg/Sodium Chloride 250 ml @ 250 mls/hr Q24H IV 02/25/17 20:00 02/25/17 21:14 (Rocephin Inj/NS Inj) 100 ml @ 200 mls/hr Q24H IV 02/25/17 18:00 02/25/17 18:12 (SoluMEDROL INJ) 60 mg Q12HR IV PUSH 02/25/17 21:00 02/26/17 09:11 (Norvasc) 10 mg DAILY PO 02/26/17 09:00 02/26/17 09:08 (Lopressor) 50 mg BID PO 02/25/17 21:00 02/26/17 09:09 (Vasotec Inj) 1.25 mg Q6H PRN IV PUSH 02/25/17 14:30 02/25/17 15:25 (Pepcid) 20 mg BID PO 02/25/17 21:00 02/26/17 09:08 (Lovenox Inj) 40 mg Q24H SQ 02/25/17 15:00 02/25/17 15:25 (Ventolin Hfa Inh) 2 puff Q6HR INH 02/25/17 18:00 02/26/17 11:51 Assessment and Plan Problem List: (1) COPD exacerbation Status: Acute Plan: Pulmonary consulted. Antibiotics changed to Levaquin to cover UTI also. Room air now. Steroids and inhalers. Breathing treatments discontinued secondary to patient refusing. (2) Hypertension Status: Acute Plan: Patient continues to be HTN with SBP in the 170's. Amlodipine and metoprolol increased yesterday. Vasotec PRN. Will add lisinopril. (3) Chronic renal disease Status: Acute Plan: Patient with CKD will monitor and avoid nephro toxins. Appears to be baseline (4) Alcohol abuse Status: Acute Plan: Patient drinks 4 drinks per day. CIWA protocol in place (5) Urinary tract infection Status: Acute Plan: Rocephin changed to Levaquin. (6) Tobacco abuse Status: Acute Plan: Smoking cessation discussed (7) Weakness Status: Acute Plan: PT ordered for tomorrow (8) BPH (benign prostatic hyperplasia) Status: Acute Plan: On Flomax and doxazosin will monitor urinary output. (9) Vitamin D deficiency Status: Acute Plan: Replacement added Assessment and Plan Assessment and plan discussed with DR. Nahum NAVARRETE Discussed Condition With Nursing. Discharge Planning SNF. Referral to senior technical program manager Physician Attestation I and the FLOOR REPRESENTATIVE have both examined this patient and reviewed this note and I agree these findings and plan of care. Tez Sidhu DO Problem Qualifiers (1) Urinary tract infection: Qualified Code: N39.0 - Urinary tract infection with hematuria, site unspecified Raysa Bhakta Feb 26, 2017 13:58
[2017-02-26] MEDS: LEVOFLOXACIN 750 MG PREMIX INJ 150 ML IV SCH (14:38)
[2017-02-26] MEDS: ENOXAPARIN SODIUM 40 MG/0.4 ML SYRINGE SQ SCH (14:38)
--- NOTE | 2017-02-26 18:48 | HHI.PR ---
Subjective Remarks 72 YOWM with COPD,Lung infilt UC Pseudomonas no Fever Weak no N.V Objective Vital Signs Vital Signs Date Time Temp Pulse Resp B/P Pulse Ox O2 Delivery O2 Flow Rate FiO2 02/26/17 16:00 110 02/26/17 16:00 98.1 125 20 163/77 93 02/26/17 15:34 98.0 111 20 148/75 92 02/26/17 15:14 96 02/26/17 15:00 111 02/26/17 14:00 88 02/26/17 13:00 87 02/26/17 12:00 98 02/26/17 11:49 98.2 50 20 138/78 92 02/26/17 11:00 100 02/26/17 10:00 100 02/26/17 09:00 92 02/26/17 08:00 94 02/26/17 08:00 98.0 50 20 157/81 92 02/26/17 07:00 58 02/26/17 05:00 52 02/26/17 04:00 97.4 62 20 163/82 95 02/26/17 04:00 62 02/26/17 03:00 60 02/26/17 02:00 60 02/26/17 01:00 58 02/26/17 00:00 97.6 58 20 151/80 92 02/26/17 00:00 58 02/25/17 23:00 60 02/25/17 22:00 66 02/25/17 21:00 68 02/25/17 20:00 62 02/25/17 20:00 97.9 65 18 149/74 97 I/O 02/25/17 02/25/17 02/25/17 02/26/17 02/26/17 02/26/17 07:00 15:00 23:00 07:00 15:00 23:00 Intake Total 300 ml 240 ml 200 ml Output Total 1500 ml 350 ml Balance -1200 ml -110 ml 200 ml Intake Oral 300 ml 240 ml 200 ml Output Urine Total 1500 ml 350 ml # Voids 2 6 # Bowel Movements 0 Result Diagram: 02/26/1752602/26/17526 Objective Remarks GENERAL: MBMN WM NAD SKIN: Warm and dry. HEAD: Normocephalic. EYES: No scleral icterus. No injection or drainage. NECK: Supple, trachea midline. No JVD or lymphadenopathy. CARDIOVASCULAR: Regular rate and rhythm without murmurs, gallops, or rubs. RESPIRATORY: Breath sounds equal bilaterally. No accessory muscle use. GASTROINTESTINAL: Abdomen soft, non-tender, nondistended. MUSCULOSKELETAL: No cyanosis, or edema. BACK: Nontender without obvious deformity. No CVA tenderness. A/P Assessment and Plan COPD Lung infilterates Pseudomonas mUTI Nicotine use Etoh use PLAN: Cont Abx Aerosol nebs Stable on RA Jose Giron MD Feb 26, 2017 18:48
[2017-02-26] MEDS: TAMSULOSIN HCL 0.4 MG CAP PO SCH (20:57)
[2017-02-26] MEDS: traZODone HCL 100 MG TAB PO SCH (20:57)
[2017-02-26] MEDS: ENALAPRILAT 1.25 MG/ML VIAL IV PUSH PRN (23:33)
[2017-02-27] VITALS (9 sets, daily range): BP systolic 155–175; BP diastolic 62–84; PULSE 68–95; RESP 18–20; TEMP 97.4–98; O2SAT 93–96
[2017-02-27] MEDS: ALBUTEROL SULFATE 90 MCG/ACT HFA 18 GM INHALER INH SCH ×4 (05:30→18:00)
[2017-02-27] MEDS: RESP: ALBUTEROL 2.5 MG/IPRATROPIUM 0.5 MG NEB (SCH) NEB ×3 (07:55→19:11)
[2017-02-27 08:01] LABS: AUTOMATED NEUTROPHIL # 5.8 TH/MM3 (1.8-7.7); BASOPHIL % 0.4 % (0.0-2.0); EOSINOPHIL % 0.1 % (0.0-4.0); HEMATOCRIT 45.8 % (39.0-51.0); HEMO FLAGS DIFF FINAL; LYMPHOCYTE # 1.2 TH/MM3 (1.0-4.8); MEAN CELL VOLUME 101.2 FL (80.0-100.0); MEAN CORPUSCULAR HEMOGLOBIN 33.6 PG (27.0-34.0); MEAN CORPUSCULAR HGB CONC 33.2 % (32.0-36.0); NEUT % 74.5 % (16.0-70.0); PLATELET COUNT 147 TH/MM3 (150-450); RED BLOOD COUNT 4.53 MIL/MM3 (4.50-5.90); RED CELL DISTRIBUTION WIDTH 13.1 % (11.6-17.2); WHITE BLOOD COUNT 7.7 TH/MM3 (4.0-11.0)
[2017-02-27 08:28] LABS: BICARBONATE 27.5 MEQ/L (21.0-32.0); POTASSIUM 3.8 MEQ/L (3.5-5.1)
--- NOTE | 2017-02-27 11:01 | HHI.PR ---
Subjective Remarks Patient denies any CP or SOB. With PT patient noted to tachycardic in the 130's Objective Vital Signs Date Time Temp Pulse Resp B/P Pulse Ox O2 Delivery O2 Flow Rate FiO2 02/27/17 08:00 97.4 68 20 166/78 93 02/27/17 07:57 93 02/27/17 04:00 97.5 71 20 175/84 95 160/62 02/27/17 00:15 158/70 02/27/17 00:03 97.4 73 20 173/67 96 02/26/17 20:18 92 21 02/26/17 20:00 Room Air 02/26/17 20:00 97.4 103 20 179/91 93 02/26/17 16:00 110 02/26/17 16:00 98.1 125 20 163/77 93 02/26/17 15:34 98.0 111 20 148/75 92 02/26/17 15:14 96 02/26/17 15:00 111 02/26/17 14:00 88 02/26/17 13:00 87 02/26/17 12:00 98 02/26/17 11:49 98.2 50 20 138/78 92 02/26/17 11:00 100 I/O 02/26/17 02/26/17 02/26/17 02/27/17 02/27/17 02/27/17 07:00 15:00 23:00 07:00 15:00 23:00 Intake Total 200 ml 120 ml 360 ml Output Total 50 ml 175 ml Balance 200 ml 70 ml 185 ml Intake Oral 200 ml 120 ml 360 ml Output Urine Total 50 ml 175 ml # Voids 6 1 Result Diagram: 02/27/17 0736 02/27/17 0736 Imaging Last 72 hours Impressions Lower Extremity Ultrasound 02/24/171720 Signed Impressions: Service Date/Time: Friday, February 24, 2017 17:44 - CONCLUSION: Normal examination. Jose Roberto Benitez Jr., MD Chest X-Ray 02/24/171720 Signed Impressions: Service Date/Time: Friday, February 24, 2017 17:26 - CONCLUSION: Mild left lung base atelectasis and/or infiltrate is seen. Reno Ontiveros MD Objective Remarks GENERAL: Alert and cooperative. SKIN: Warm and dry. HEAD: Normocephalic. EYES: No scleral icterus. No injection or drainage. NECK: Supple, trachea midline. No JVD or lymphadenopathy. CARDIOVASCULAR: Regular rate and rhythm without murmurs, gallops, or rubs. RESPIRATORY: Breath sounds equal bilaterally. No accessory muscle use. GASTROINTESTINAL: Abdomen soft, non-tender, nondistended. MUSCULOSKELETAL: No cyanosis, or edema. BACK: Nontender without obvious deformity. No CVA tenderness. Medications and IVs Current Medications Medications (Trade) Dose Ordered Sig/Nayeli Route Start Time Stop Time Status Last Admin (NS Flush) 2 ml UNSCH PRN IVF 02/24/17 17:30 (Romazicon Inj) 0.2 mg Q1M PRN IV PUSH 02/24/17 19:45 (Ativan) 1 mg Q4H PRN PO 02/24/17 19:45 02/25/17 17:00 (Ativan Inj) 1 mg Q4H PRN IV PUSH 02/24/17 19:45 02/25/17 13:16 (Ativan) 2 mg Q2H PRN PO 02/24/17 19:45 (Ativan Inj) 2 mg Q2H PRN IV PUSH 02/24/17 19:45 (Ativan Inj) 2 mg Q1H PRN IV PUSH 02/24/17 19:45 02/26/17 03:22 (Ativan Inj) 2 mg Q15M PRN IV PUSH 02/24/17 19:45 (NS Flush) 2 ml UNSCH PRN IV FLUSH 02/24/17 21:45 (NS Flush) 2 ml BID IV FLUSH 02/25/17 09:00 02/26/17 21:01 (Narcan Inj) 0.4 mg UNSCH PRN IV 02/24/17 21:45 (Elvie-Colace) 1 tab BID PO 02/25/17 09:00 02/26/17 09:12 (Milk Of Magnesia Liq) 30 ml Q12H PRN PO 02/24/17 21:45 (Senokot) 17.2 mg Q12H PRN PO 02/24/17 21:45 (Dulcolax Supp) 10 mg DAILY PRN RECTAL 02/24/17 21:45 (Lactulose Liq) 30 ml DAILY PRN PO 02/24/17 21:45 (Cardura) 8 mg DAILY PO 02/25/17 09:00 02/26/17 09:08 (Proscar) 5 mg DAILY PO 02/25/17 09:00 02/26/17 09:09 (Breo Ellipta 200-25 Inh) 1 puff DAILY INH 02/25/17 09:00 (KCl) 40 meq DAILY PO 02/25/17 09:00 02/26/17 09:09 (Flomax) 0.4 mg HS PO 02/25/17 21:00 02/26/17 20:57 (Desyrel) 200 mg HS PO 02/25/17 21:00 02/26/17 20:57 (SoluMEDROL INJ) 60 mg Q12HR IV PUSH 02/25/17 21:00 02/26/17 20:56 (Norvasc) 10 mg DAILY PO 02/26/17 09:00 02/26/17 09:08 (Lopressor) 50 mg BID PO 02/25/17 21:00 02/26/17 20:57 (Vasotec Inj) 1.25 mg Q6H PRN IV PUSH 02/25/17 14:30 02/26/17 23:33 (Pepcid) 20 mg BID PO 02/25/17 21:00 02/26/17 20:57 (Lovenox Inj) 40 mg Q24H SQ 02/25/17 15:00 02/26/17 14:38 (Ventolin Hfa Inh) 2 puff Q6HR INH 02/25/17 18:00 02/27/17 05:30 Cholecalciferol 5000 units 5,000 units DAILY PO 02/27/17 09:00 (Levaquin 750 Mg Premix Inj) 150 ml @ 100 mls/hr Q24H IV 02/26/17 14:00 02/26/17 14:38 (Prinivil) 5 mg DAILY PO 02/27/17 09:00 Assessment and Plan Problem List: (1) COPD exacerbation Status: Acute Plan: Pulmonary consulted. Antibiotics changed to Levaquin to cover UTI also. Room air now. Steroids and inhalers. Breathing treatments discontinued secondary to patient refusing. Lungs sounds improved. (2) Tachycardia Status: Acute Plan: Heart rate 60 - 70's at rest however with PT and ambulation as high as 130's. ECG SR this AM. Will consult cardiology (3) Hypertension Status: Acute Plan: Patient continues to be HTN with SBP in the 170's. On amlodipine, lisinopril, and metoprolol. With tachycardia will increase metoprolol. Cardiology consulted (4) Chronic renal disease Status: Acute Plan: Patient with CKD will monitor and avoid nephro toxins. Appears to be baseline (5) Alcohol abuse Status: Acute Plan: Patient drinks 4 drinks per day. CIWA protocol in place. Continues to be shaky but improving daily (6) Urinary tract infection Status: Acute Plan: Rocephin changed to Levaquin. (7) Tobacco abuse Status: Acute Plan: Smoking cessation discussed (8) Weakness Status: Acute Plan: PT this am. Patient will need a SNF (9) BPH (benign prostatic hyperplasia) Status: Acute Plan: On Flomax and doxazosin will monitor urinary output. (10) Vitamin D deficiency Status: Acute Plan: Replacement added Assessment and Plan Assessment and plan discussed with DR. Nahum NAVARRETE Discussed Condition With Nursing Discharge Planning SNF Physician Attestation I and the FLORAL MERCHANDISER have both examined this patient and reviewed this note and I agree with these findings and plan of care. Tez Sidhu DO Problem Qualifiers (1) Urinary tract infection: Qualified Code: N39.0 - Urinary tract infection with hematuria, site unspecified Raysa Bhakta FLORAL MERCHANDISER Feb 27, 2017 11:01
[2017-02-27] MEDS: DOXAZOSIN MESYLATE 4 MG TAB PO SCH (11:07)
[2017-02-27] MEDS: DOCUSATE SODIUM 50 MG/SENNA 8.6 MG TAB PO SCH ×2 (11:07→21:02)
[2017-02-27] MEDS: FINASTERIDE 5 MG TAB PO SCH (11:07)
[2017-02-27] MEDS: methylPREDNISolone SOD SUCC 125 MG/2 ML VIAL IV PUSH SCH ×2 (11:08→21:00)
[2017-02-27] MEDS: POTASSIUM CHLORIDE 20 MEQ CONTROLLED RELEASE TAB PO SCH (11:08)
[2017-02-27] MEDS: LISINOPRIL 5 MG TAB PO SCH (11:09)
[2017-02-27] MEDS: SODIUM CHLORIDE 0.9% FLUSH 10 ML FLUSH IV FLUSH SCH ×2 (11:12→21:00)
[2017-02-27] MEDS: FLUTICASONE 200 MCG/VILANTEROL 25 MCG INHALER INH SCH (11:14)
[2017-02-27] MEDS: LEVOFLOXACIN 750 MG PREMIX INJ 150 ML IV SCH (13:43)
--- NOTE | 2017-02-27 15:42 | MB ---
cc: YANIRA DICKINSON MD DATE OF CONSULTATION 02/27/17 HISTORY OF PRESENT ILLNESS Mr. Otto is a 72-year-old white male with a history of coronary artery disease, hypertension, COPD, BPH. He presented with increased shortness of breath, generalized weakness and urinary attention. He has not had any chest pain. He was diagnosed with COPD exacerbation. He also has been hypertensive. His medications have been adjusted. He developed tachycardia with physical therapy, up to 130s. Telemetry shows sinus tachycardia. PAST MEDICAL HISTORY Positive for coronary artery disease, hypertension, COPD, BPH, inguinal hernia repair, right partial nephrectomy, tonsillectomy right kidney cancer. MEDICATIONS Include: 1. Metoprolol 100 milligrams twice a day. 2. Pepcid. 3. Vitamin D3. 4. Lisinopril. 5. Levofloxacin. 6. Amlodipine. 7. Flomax. 8. Trazodone. 9. Methylprednisone. 10. Albuterol. 11. Lovenox. 12. Elvie-Colace. 13. Doxazosin. 14. Proscar. 16. Potassium. ALLERGIES None. SOCIAL HISTORY The patient drinks alcohol on a regular basis. He is also a smoker. FAMILY HISTORY Negative for heart disease. REVIEW OF SYSTEMS The review of systems otherwise negative. PHYSICAL EXAMINATION VITAL SIGNS: Blood pressure 155/75, pulse 87 and regular. HEENT: Negative. 2+ carotid upstrokes. No bruits. LUNGS: With few rhonchi. HEART: Regular with no murmur, gallop. ABDOMEN: Soft. No bruits. EXTREMITIES: Without edema. 1 to 2+ pulses. NEUROLOGIC: Exam is grossly nonfocal. CARDIOLOGY STUDIES EKG was reviewed and showed normal sinus rhythm with normal axis and intervals. Telemetry shows episodes of sinus tachycardia up to 130s. LABORATORY DATA Hemoglobin 15.2, potassium 3.8, creatinine 1.36, AST 15, ALT 19t, BNP 53. DIAGNOSIS 1. Sinus tachycardia. 2. COPD exacerbation. 3. Hypertension. 4. Chronic kidney disease. 5. Heavy alcohol use. 6. Smoking. DISPOSITION Mr. Otto has had COPD exacerbation and hypertension. His metoprolol has been increased for better control of his blood pressure and also his heart rate. He appears to be significantly deconditioned. His tachycardia is also likely exacerbated by bronchodilators. I recommend to continue his current medical program. If necessary, we can add long-acting diltiazem to metoprolol. He will be monitored on telemetry. I will follow him for cardiology during his hospitalization. MD MORRO Belle/WGEN /3:02 PM /3:32 PM RAMÓN
[2017-02-27] MEDS: CHOLECALCIFEROL (VIT D3) 5000 UNIT CAP PO SCH (17:07)
[2017-02-27] MEDS: ENOXAPARIN SODIUM 40 MG/0.4 ML SYRINGE SQ SCH (17:08)
--- NOTE | 2017-02-27 19:07 | HHI.PR ---
Subjective Remarks 72 YOWM with COPD,Lung infilt UC Pseudomonas no Fever Weak no N.V Breathing better Denies SOB Objective Vital Signs Vital Signs Date Time Temp Pulse Resp B/P Pulse Ox O2 Delivery O2 Flow Rate FiO2 02/27/17 16:00 98.0 92 18 159/77 93 02/27/17 12:00 97.9 87 20 155/75 96 02/27/17 08:00 83 02/27/17 08:00 97.4 68 20 166/78 93 02/27/17 08:00 96 Room Air 21 02/27/17 07:57 93 02/27/17 04:00 97.5 71 20 175/84 95 160/62 02/27/17 00:15 158/70 02/27/17 00:03 97.4 73 20 173/67 96 02/26/17 20:18 92 21 02/26/17 20:00 Room Air 02/26/17 20:00 97.4 103 20 179/91 93 I/O 02/26/17 02/26/17 02/26/17 02/27/17 02/27/17 02/27/17 07:00 15:00 23:00 07:00 15:00 23:00 Intake Total 200 ml 120 ml 360 ml 480 ml Output Total 50 ml 175 ml 500 ml Balance 200 ml 70 ml 185 ml -20 ml Intake Oral 200 ml 120 ml 360 ml 480 ml Output Urine Total 50 ml 175 ml 500 ml # Voids 6 1 # Bowel Movements 0 Result Diagram: 02/27/17 0736 02/27/17 0736 Objective Remarks GENERAL: MBMN WM NAD SKIN: Warm and dry. HEAD: Normocephalic. EYES: No scleral icterus. No injection or drainage. NECK: Supple, trachea midline. No JVD or lymphadenopathy. CARDIOVASCULAR: Regular rate and rhythm without murmurs, gallops, or rubs. RESPIRATORY: Breath sounds equal bilaterally. No accessory muscle use. GASTROINTESTINAL: Abdomen soft, non-tender, nondistended. MUSCULOSKELETAL: No cyanosis, or edema. BACK: Nontender without obvious deformity. No CVA tenderness. A/P Assessment and Plan COPD Lung infilterates Pseudomonas mUTI Nicotine use Etoh use PLAN: Cont Abx Aerosol nebs Stable on RA IV Solumedrol Stable from pulm standpoint Available prn over weekend Jose Giron MD Feb 27, 2017 19:07
[2017-02-27] MEDS: METOPROLOL TARTRATE 100 MG TAB PO SCH (21:00)
[2017-02-27] MEDS: traZODone HCL 100 MG TAB PO SCH (21:01)
[2017-02-27] MEDS: FAMOTIDINE 20 MG TAB PO SCH (21:01)
[2017-02-27] MEDS: TAMSULOSIN HCL 0.4 MG CAP PO SCH (21:01)
[2017-02-27] MEDS ORDERED: ACETAMINOPHEN/CODEINE 300 MG/30 MG TAB PO PRN (23:45)
[2017-02-28] VITALS (10 sets, daily range): BP systolic 133–178; BP diastolic 62–87; PULSE 60–87; RESP 16–20; TEMP 97.3–98; O2SAT 91–96
[2017-02-28] MEDS: ACETAMINOPHEN/CODEINE 300 MG/30 MG TAB PO PRN (00:08)
[2017-02-28] MEDS: ALBUTEROL SULFATE 90 MCG/ACT HFA 18 GM INHALER INH SCH ×4 (01:23→17:31)
[2017-02-28] MEDS: ENALAPRILAT 1.25 MG/ML VIAL IV PUSH PRN (01:24)
[2017-02-28 06:11] LABS: AUTOMATED NEUTROPHIL # 6.1 TH/MM3 (1.8-7.7); BASOPHIL % 0.2 % (0.0-2.0); HEMATOCRIT 43.3 % (39.0-51.0); LYMPH % 6.7 % (9.0-44.0); LYMPHOCYTE # 0.5 TH/MM3 (1.0-4.8); MEAN CELL VOLUME 100.9 FL (80.0-100.0); MEAN CORPUSCULAR HEMOGLOBIN 34.6 PG (27.0-34.0); MEAN CORPUSCULAR HGB CONC 34.3 % (32.0-36.0); MONO % 3.8 % (0.0-8.0); NEUT % 89.3 % (16.0-70.0); PLATELET COUNT 134 TH/MM3 (150-450); RED BLOOD COUNT 4.29 MIL/MM3 (4.50-5.90); RED CELL DISTRIBUTION WIDTH 12.8 % (11.6-17.2); WHITE BLOOD COUNT 6.9 TH/MM3 (4.0-11.0)
[2017-02-28 06:36] LABS: BICARBONATE 25.4 MEQ/L (21.0-32.0); POTASSIUM 4.2 MEQ/L (3.5-5.1)
[2017-02-28 06:51] LABS: HEMO FLAGS AUTO DIFF
[2017-02-28] MEDS: RESP: ALBUTEROL 2.5 MG/IPRATROPIUM 0.5 MG NEB (SCH) NEB ×3 (08:00→21:11)
[2017-02-28] MEDS: LISINOPRIL 5 MG TAB PO SCH (09:00)
[2017-02-28] MEDS: DOCUSATE SODIUM 50 MG/SENNA 8.6 MG TAB PO SCH ×2 (09:00→20:57)
[2017-02-28 09:02] LABS: BANDS 6 % (0-6); METAMYELOCYTES 1 % (0-1); MYELOCYTES 1 % (0-0); NEUTROPHIL # MANUAL DIFF 6.1 TH/MM3 (1.8-7.7); POLYS (SEG NEUTROPHILS) 80 % (16-70); WBC DIFF SAMPLE 100
[2017-02-28 09:03] LABS: SCAN/DIFF FINAL DIFF MANUAL
[2017-02-28] MEDS: METOPROLOL TARTRATE 100 MG TAB PO SCH ×2 (09:54→20:57)
[2017-02-28] MEDS: POTASSIUM CHLORIDE 20 MEQ CONTROLLED RELEASE TAB PO SCH (09:54)
[2017-02-28] MEDS: FINASTERIDE 5 MG TAB PO SCH (09:54)
[2017-02-28] MEDS: DOXAZOSIN MESYLATE 4 MG TAB PO SCH (09:55)
[2017-02-28] MEDS: FAMOTIDINE 20 MG TAB PO SCH ×2 (09:55→20:57)
[2017-02-28] MEDS: methylPREDNISolone SOD SUCC 125 MG/2 ML VIAL IV PUSH SCH ×2 (09:57→20:57)
[2017-02-28] MEDS: SODIUM CHLORIDE 0.9% FLUSH 10 ML FLUSH IV FLUSH SCH ×2 (09:57→20:59)
[2017-02-28] MEDS: CHOLECALCIFEROL (VIT D3) 5000 UNIT CAP PO SCH (09:58)
[2017-02-28] MEDS: FLUTICASONE 200 MCG/VILANTEROL 25 MCG INHALER INH SCH (09:58)
[2017-02-28] MEDS: ENOXAPARIN SODIUM 40 MG/0.4 ML SYRINGE SQ SCH (14:20)
--- NOTE | 2017-02-28 14:26 | HHI.PR ---
Subjective Remarks ua seneitivites returned pos pseucomonas cipro is agent of choice will dc levoquin Objective Vital Signs Date Time Temp Pulse Resp B/P Pulse Ox O2 Delivery O2 Flow Rate FiO2 02/28/17 12:00 97.7 87 18 158/76 93 02/28/17 08:39 95 21 02/28/17 08:25 Room Air 02/28/17 08:00 97.6 87 18 166/87 93 02/28/17 07:53 72 02/28/17 04:00 97.4 66 18 168/82 94 02/28/17 00:00 97.3 60 16 178/82 96 02/27/17 20:00 95 02/27/17 20:00 Room Air 02/27/17 20:00 97.9 93 20 155/71 95 02/27/17 19:11 93 21 02/27/17 16:00 98.0 92 18 159/77 93 I/O 02/27/17 02/27/17 02/27/17 02/28/17 02/28/17 02/28/17 07:00 15:00 23:00 07:00 15:00 23:00 Intake Total 360 ml 480 ml Output Total 175 ml 500 ml 1150 ml 500 ml Balance 185 ml -20 ml -1150 ml -500 ml Intake Oral 360 ml 480 ml Output Urine Total 175 ml 500 ml 1150 ml 500 ml # Bowel Movements 0 Result Diagram: 02/28/17 0530 02/28/17 0530 Objective Remarks GENERAL: frail SKIN: Warm and dry. HEAD: Atraumatic. Normocephalic. EYES: Pupils equal and round. No scleral icterus. No injection or drainage. ENT: No nasal bleeding or discharge. Mucous membranes pink and moist. NECK: Trachea midline. No JVD. CARDIOVASCULAR: Regular rate and rhythm. RESPIRATORY: No accessory muscle use. few rhonchi present. Breath sounds equal bilaterally. GASTROINTESTINAL: Abdomen soft, non-tender, nondistended. Hepatic and splenic margins not palpable. MUSCULOSKELETAL: Extremities without clubbing, cyanosis, or edema. No obvious deformities. NEUROLOGICAL: Awake and alert. No obvious cranial nerve deficits. Motor grossly within normal limits. Normal speech. PSYCHIATRIC: Appropriate mood and affect; insight and judgment normal.angry Medications and IVs Inpatient Medications Acetaminophen/ Codeine Phosphate (Tylenol-Codeine #3) 2 tab Q4H PRN PO PAIN 6- 10; Start 02/27/17 at 23:45 Albuterol Sulfate (Ventolin Hfa Inh) 2 puff Q6HR INH Last administered on 12:02; Start 02/25/17 at 18:00 Albuterol/ Ipratropium (Duoneb Neb) 1 ampule Q6HR WHILE AWAKE NEB NEB Last administered on 02/28/17 08:37; Start 02/25/17 at 14:00 Amlodipine Besylate (Norvasc) 10 mg DAILY PO Last administered on 02/28/17 09: 56; Start 02/26/17 at 09:00 Azithromycin 500 mg/Sodium Chloride 250 ml @ 250 mls/hr Q24H IV Last administered on 02/25/17 21:14; Start 02/25/17 at 20:00; Stop 02/26/17 at 14:03 ; Status DC Bisacodyl (Dulcolax Supp) 10 mg DAILY PRN RECTAL SEVERE CONSITIPATION; Start at 21:45 Ceftriaxone Sodium 1000 mg/ Sodium Chloride 100 ml @ 200 mls/hr ONCE ONCE IV Last administered on 02/24/17 18:45; Start 02/24/17 at 18:45; Stop 02/24/17 at 19:14; Status DC Ceftriaxone Sodium/Sodium Chloride (Rocephin Inj/NS Inj) 100 ml @ 200 mls/hr Q24H IV Last administered on 02/25/17 18:12; Start 02/25/17 at 18:00; Stop at 14:03; Status DC Cholecalciferol 5000 units 5,000 units DAILY PO Last administered on 02/28/17 09:58; Start 02/27/17 at 09:00 Ciprofloxacin (Cipro) 500 mg Q12HR PO ; Start 02/28/17 at 21:00; Status UNV Doxazosin Mesylate (Cardura) 8 mg DAILY PO Last administered on 02/28/17 09:55 ; Start 02/25/17 at 09:00 Enalaprilat (Vasotec Inj) 1.25 mg Q6H PRN IV PUSH SBP>160, DBP>90 Last administered on 02/28/17 01:24; Start 02/25/17 at 14:30 Enoxaparin Sodium (Lovenox Inj) 40 mg Q24H SQ Last administered on 02/27/17 17 :08; Start 02/25/17 at 15:00 Famotidine (Pepcid) 10 mg BID PO Last administered on 02/28/17 09:55; Start at 21:00 Finasteride (Proscar) 5 mg DAILY PO Last administered on 02/28/17 09:54; Start 02/25/17 at 09:00 Flumazenil (Romazicon Inj) 0.2 mg Q1M PRN IV PUSH SEE LABEL COMMENTS; Start 07/03 at 19:45 Fluticasone/ Vilanterol (Breo Ellipta 200-25 Inh) 1 puff DAILY INH Last administered on 02/28/17 09:58; Start 02/25/17 at 09:00 Lactulose (Lactulose Liq) 30 ml DAILY PRN PO SEVERE CONSITIPATION; Start at 21:45 Levofloxacin/ Dextrose (Levaquin 750 Mg Premix Inj) 150 ml @ 100 mls/hr Q24H IV Last administered on 02/27/17 13:43; Start 02/26/17 at 14:00; Stop at 14:15; Status DC Lisinopril (Prinivil) 5 mg DAILY PO Last administered on 02/27/17 11:09; Start 02/27/17 at 09:00 Lorazepam (Ativan Inj) 2 mg Q15M PRN IV PUSH CIWA > 20; Start 02/24/17 at 19:45 Lorazepam (Ativan) 2 mg Q2H PRN PO CIWA 11-14; Start 02/24/17 at 19:45 Lorazepam 1 mg 1 mg ONCE ONCE IV PUSH Last administered on 02/24/17 19:00; Start 02/24/17 at 18:45; Stop 02/24/17 at 18:46; Status DC Magnesium Hydroxide (Milk Of Magnesia Liq) 30 ml Q12H PRN PO MILD - MODERATE CONSTIPATION; Start 02/24/17 at 21:45 Methylprednisolone Sodium Succinate (SoluMEDROL INJ) 60 mg Q12HR IV PUSH Last administered on 02/28/17 09:57; Start 02/25/17 at 21:00 Metoprolol Tartrate (Lopressor) 100 mg BID PO Last administered on 02/28/17 09 :54; Start 02/27/17 at 21:00 Naloxone HCl (Narcan Inj) 0.4 mg UNSCH PRN IV SEE LABEL COMMENTS; Start at 21:45 Potassium Chloride (KCl) 40 meq DAILY PO Last administered on 02/28/17 09:54; Start 02/25/17 at 09:00 Senna/Docusate Sodium (Elvie-Colace) 1 tab BID PO Last administered on 21:02; Start 02/25/17 at 09:00 Sennosides (Senokot) 17.2 mg Q12H PRN PO MODERATE - SEVERE CONSTIPATION; Start 02/24/17 at 21:45 Sodium Chloride (NS 1000 ml Inj) 1,000 ml @ 999 mls/hr BOLUS ONCE IV Last administered on 02/24/17 18:45; Start 02/24/17 at 18:45; Stop 02/24/17 at 19:45 ; Status DC Sodium Chloride (NS Flush) 2 ml BID IV FLUSH Last administered on 02/28/17 09: 57; Start 02/25/17 at 09:00 Tamsulosin HCl (Flomax) 0.4 mg HS PO Last administered on 02/27/17 21:01; Start 02/25/17 at 21:00 Trazodone HCl 200 mg 200 mg HS PO Last administered on 02/27/17 21:01; Start 02/25/17 at 21:00 Assessment and Plan Assessment and Plan pulmonary infiltrate repeat cxr UTI PSEUDIOMONAS add cipro DEBILITY DT hospital rehab Discussed Condition With patient Discharge Planning pt is frail has pulmonary infiltrate and uti with recent DT would be safest in a hospital based SNF recomend [facility]CU [facility] Tze Sidhu DO Feb 28, 2017 14:26
--- NOTE | 2017-02-28 16:03 | RADRPT ---
EXAM DATE/TIME: 02/28/2017 15:39 [place] COMPARISON: CT THORACIC SPINE W/O CONTRAST W 3D RECON, March 14, 2012, 12:00. INDICATIONS : Difficulty breathing. MEDICAL HISTORY : Chronic obstructive pulmonary disease. SURGICAL HISTORY : None. ENCOUNTER: Subsequent ACUITY: 2 weeks PAIN SCORE: 0/10 LOCATION: Bilateral chest FINDINGS: The lungs are clear without infiltrate, nodule, or mass. There is no appreciable pleural effusion fo r technique. Heart and mediastinum are unremarkable. There is anterior wedging of one of the lower t horacic vertebrae not present on the prior CT thoracic spine from 2011 approximate 50% reduction in t he anterior height most likely chronic. CONCLUSION: No acute cardiopulmonary disease. There is anterior wedging of one of the lower t horacic vertebrae most likely chronic, however not present on the study from 2011. Reno Ontiveros MD on February 28, 2017 at 16:01 Board Certified Radiologist. This report was verified electronically.
[2017-02-28 19:22] LABS: BASOPHIL % 0.2 % (0.0-2.0); HEMATOCRIT 43.2 % (39.0-51.0); LYMPH % 4.8 % (9.0-44.0); LYMPHOCYTE # 0.5 TH/MM3 (1.0-4.8); MEAN CELL VOLUME 101.4 FL (80.0-100.0); MEAN CORPUSCULAR HEMOGLOBIN 35.3 PG (27.0-34.0); MEAN CORPUSCULAR HGB CONC 34.8 % (32.0-36.0); MONO % 5.9 % (0.0-8.0); NEUT % 89.1 % (16.0-70.0); PLATELET COUNT 132 TH/MM3 (150-450); RED BLOOD COUNT 4.26 MIL/MM3 (4.50-5.90); RED CELL DISTRIBUTION WIDTH 12.8 % (11.6-17.2); WHITE BLOOD COUNT 10.1 TH/MM3 (4.0-11.0)
[2017-02-28 19:29] LABS: HEMO FLAGS AUTO DIFF
[2017-02-28 19:46] LABS: BICARBONATE 26.8 MEQ/L (21.0-32.0)
[2017-02-28 20:57] LABS: PLATELET ESTIMATE SMEAR NORMAL (NORMAL); PLATELET MORPHOLOGY NORMAL (NORMAL); SCAN/DIFF AUTO DIFF CONFIRMED
[2017-02-28] MEDS: TAMSULOSIN HCL 0.4 MG CAP PO SCH (20:57)
[2017-02-28] MEDS: CIPROFLOXACIN 500 MG TAB PO SCH (20:57)
[2017-02-28] MEDS: traZODone HCL 100 MG TAB PO SCH (20:57)
[2017-03-01] VITALS (7 sets, daily range): BP systolic 137–169; BP diastolic 63–78; PULSE 57–88; RESP 18–20; TEMP 97.5–98.2; O2SAT 92–96
[2017-03-01] MEDS: ALBUTEROL SULFATE 90 MCG/ACT HFA 18 GM INHALER INH SCH ×5 (05:29→23:38)
[2017-03-01] MEDS: POTASSIUM CHLORIDE 20 MEQ CONTROLLED RELEASE TAB PO SCH (09:00)
[2017-03-01] MEDS: DOCUSATE SODIUM 50 MG/SENNA 8.6 MG TAB PO SCH ×2 (09:24→20:47)
[2017-03-01] MEDS: FAMOTIDINE 20 MG TAB PO SCH ×2 (09:24→20:48)
[2017-03-01] MEDS: CIPROFLOXACIN 500 MG TAB PO SCH ×2 (09:24→20:47)
[2017-03-01] MEDS: CHOLECALCIFEROL (VIT D3) 5000 UNIT CAP PO SCH (09:24)
[2017-03-01] MEDS: LISINOPRIL 5 MG TAB PO SCH (09:25)
[2017-03-01] MEDS: METOPROLOL TARTRATE 100 MG TAB PO SCH ×2 (09:25→20:47)
[2017-03-01] MEDS: FINASTERIDE 5 MG TAB PO SCH (09:25)
[2017-03-01] MEDS: DOXAZOSIN MESYLATE 4 MG TAB PO SCH (09:25)
[2017-03-01] MEDS: methylPREDNISolone SOD SUCC 125 MG/2 ML VIAL IV PUSH SCH ×2 (09:27→20:47)
[2017-03-01] MEDS: SODIUM CHLORIDE 0.9% FLUSH 10 ML FLUSH IV FLUSH SCH ×2 (09:27→20:50)
[2017-03-01] MEDS: FLUTICASONE 200 MCG/VILANTEROL 25 MCG INHALER INH SCH (09:28)
--- NOTE | 2017-03-01 09:36 | HHI.PR ---
Subjective Remarks ua seneitivites returned pos pseucomonas cipro is agent of choice tolerating cipro po well Objective Vital Signs Date Time Temp Pulse Resp B/P Pulse Ox O2 Delivery O2 Flow Rate FiO2 03/01/17 08:00 97.7 65 20 159/76 96 03/01/17 04:00 98.2 59 18 169/75 95 03/01/17 04:00 Room Air 03/01/17 00:00 Room Air 03/01/17 00:00 97.8 61 18 166/78 94 02/28/17 21:13 94 21 02/28/17 20:00 Room Air 02/28/17 20:00 71 02/28/17 20:00 97.6 72 20 133/62 95 02/28/17 16:00 98.0 67 18 133/63 91 02/28/17 12:00 Room Air 02/28/17 12:00 97.7 87 18 158/76 93 I/O 02/28/17 02/28/17 02/28/17 03/01/17 03/01/17 03/01/17 06:59 14:59 22:59 06:59 14:59 22:59 Intake Total 382 ml 480 ml 240 ml Output Total 500 ml 800 ml 1300 ml 300 ml Balance -500 ml -418 ml -820 ml -60 ml Intake Oral 380 ml 480 ml 240 ml IV Total 2 ml Output Urine Total 500 ml 800 ml 1300 ml 300 ml # Bowel Movements 1 Result Diagram: 02/28/17 1841 02/28/17 1841 Objective Remarks GENERAL: frail SKIN: Warm and dry. HEAD: Atraumatic. Normocephalic. EYES: Pupils equal and round. No scleral icterus. No injection or drainage. ENT: No nasal bleeding or discharge. Mucous membranes pink and moist. NECK: Trachea midline. No JVD. CARDIOVASCULAR: Regular rate and rhythm. RESPIRATORY: No accessory muscle use. few rhonchi present. Breath sounds equal bilaterally. few rhonchi present GASTROINTESTINAL: Abdomen soft, non-tender, nondistended. Hepatic and splenic margins not palpable. MUSCULOSKELETAL: Extremities without clubbing, cyanosis, or edema. No obvious deformities. NEUROLOGICAL: Awake and alert. No obvious cranial nerve deficits. Motor grossly within normal limits. Normal speech tremor diminished. PSYCHIATRIC: Appropriate mood and affect; insight and judgment normal. Medications and IVs Inpatient Medications Acetaminophen/ Codeine Phosphate (Tylenol-Codeine #3) 2 tab Q4H PRN PO PAIN 6- 10; Start 02/27/17 at 23:45 Albuterol Sulfate (Ventolin Hfa Inh) 2 puff Q6HR INH Last administered on 17:31; Start 02/25/17 at 18:00 Albuterol/ Ipratropium (Duoneb Neb) 1 ampule Q6HR WHILE AWAKE NEB NEB Last administered on 02/28/17 21:11; Start 02/25/17 at 14:00 Amlodipine Besylate (Norvasc) 10 mg DAILY PO Last administered on 03/01/17 09: 25; Start 02/26/17 at 09:00 Azithromycin 500 mg/Sodium Chloride 250 ml @ 250 mls/hr Q24H IV Last administered on 02/25/17 21:14; Start 02/25/17 at 20:00; Stop 02/26/17 at 14:03 ; Status DC Bisacodyl (Dulcolax Supp) 10 mg DAILY PRN RECTAL SEVERE CONSITIPATION; Start at 21:45 Ceftriaxone Sodium 1000 mg/ Sodium Chloride 100 ml @ 200 mls/hr ONCE ONCE IV Last administered on 02/24/17 18:45; Start 02/24/17 at 18:45; Stop 02/24/17 at 19:14; Status DC Ceftriaxone Sodium/Sodium Chloride (Rocephin Inj/NS Inj) 100 ml @ 200 mls/hr Q24H IV Last administered on 02/25/17 18:12; Start 02/25/17 at 18:00; Stop at 14:03; Status DC Cholecalciferol 5000 units 5,000 units DAILY PO Last administered on 03/01/17 09:24; Start 02/27/17 at 09:00 Ciprofloxacin (Cipro) 500 mg Q12HR PO Last administered on 03/01/17 09:24; Start 02/28/17 at 21:00 Doxazosin Mesylate (Cardura) 8 mg DAILY PO Last administered on 03/01/17 09:25 ; Start 02/25/17 at 09:00 Enalaprilat (Vasotec Inj) 1.25 mg Q6H PRN IV PUSH SBP>160, DBP>90 Last administered on 02/28/17 01:24; Start 02/25/17 at 14:30 Enoxaparin Sodium (Lovenox Inj) 40 mg Q24H SQ Last administered on 02/28/17 14 :20; Start 02/25/17 at 15:00 Famotidine (Pepcid) 10 mg BID PO Last administered on 03/01/17 09:24; Start at 21:00 Finasteride (Proscar) 5 mg DAILY PO Last administered on 03/01/17 09:25; Start 02/25/17 at 09:00 Flumazenil (Romazicon Inj) 0.2 mg Q1M PRN IV PUSH SEE LABEL COMMENTS; Start 07/03 at 19:45 Fluticasone/ Vilanterol (Breo Ellipta 200-25 Inh) 1 puff DAILY INH Last administered on 03/01/17 09:28; Start 02/25/17 at 09:00 Lactulose (Lactulose Liq) 30 ml DAILY PRN PO SEVERE CONSITIPATION; Start at 21:45 Levofloxacin/ Dextrose (Levaquin 750 Mg Premix Inj) 150 ml @ 100 mls/hr Q24H IV Last administered on 02/27/17 13:43; Start 02/26/17 at 14:00; Stop at 14:15; Status DC Lisinopril (Prinivil) 5 mg DAILY PO Last administered on 03/01/17 09:25; Start 02/27/17 at 09:00 Lorazepam (Ativan Inj) 2 mg Q15M PRN IV PUSH CIWA > 20; Start 02/24/17 at 19:45 Lorazepam (Ativan) 2 mg Q2H PRN PO CIWA 11-14; Start 02/24/17 at 19:45 Lorazepam 1 mg 1 mg ONCE ONCE IV PUSH Last administered on 02/24/17 19:00; Start 02/24/17 at 18:45; Stop 02/24/17 at 18:46; Status DC Magnesium Hydroxide (Milk Of Magnesia Liq) 30 ml Q12H PRN PO MILD - MODERATE CONSTIPATION; Start 02/24/17 at 21:45 Methylprednisolone Sodium Succinate (SoluMEDROL INJ) 60 mg Q12HR IV PUSH Last administered on 03/01/17 09:27; Start 02/25/17 at 21:00 Metoprolol Tartrate (Lopressor) 100 mg BID PO Last administered on 03/01/17 09 :25; Start 02/27/17 at 21:00 Naloxone HCl (Narcan Inj) 0.4 mg UNSCH PRN IV SEE LABEL COMMENTS; Start at 21:45 Potassium Chloride (KCl) 40 meq DAILY PO Last administered on 02/28/17 09:54; Start 02/25/17 at 09:00 Senna/Docusate Sodium (Elvie-Colace) 1 tab BID PO Last administered on 09:24; Start 02/25/17 at 09:00 Sennosides (Senokot) 17.2 mg Q12H PRN PO MODERATE - SEVERE CONSTIPATION; Start 02/24/17 at 21:45 Sodium Chloride (NS 1000 ml Inj) 1,000 ml @ 999 mls/hr BOLUS ONCE IV Last administered on 02/24/17 18:45; Start 02/24/17 at 18:45; Stop 02/24/17 at 19:45 ; Status DC Sodium Chloride (NS Flush) 2 ml BID IV FLUSH Last administered on 03/01/17 09: 27; Start 02/25/17 at 09:00 Tamsulosin HCl (Flomax) 0.4 mg HS PO Last administered on 02/28/17 20:57; Start 02/25/17 at 21:00 Trazodone HCl 200 mg 200 mg HS PO Last administered on 02/28/17 20:57; Start 02/25/17 at 21:00 Assessment and Plan Assessment and Plan pulmonary infiltrate repeat cxr infiltrate resolved UTI PSEUDIOMONAS add cipro DEBILITY DT hospital rehab Discussed Condition With patient Discharge Planning to U Tez Meyers DO Mar 01, 2017 09:36
[2017-03-01] MEDS: RESP: ALBUTEROL 2.5 MG/IPRATROPIUM 0.5 MG NEB (SCH) NEB (11:37)
[2017-03-01] MEDS: ENOXAPARIN SODIUM 40 MG/0.4 ML SYRINGE SQ SCH (16:16)
[2017-03-01] MEDS: traZODone HCL 100 MG TAB PO SCH (20:47)
[2017-03-01] MEDS: TAMSULOSIN HCL 0.4 MG CAP PO SCH (20:47)
[2017-03-01] MEDS: ACETAMINOPHEN/CODEINE 300 MG/30 MG TAB PO PRN (21:51)
[2017-03-02] VITALS (8 sets, daily range): BP systolic 128–163; BP diastolic 62–74; PULSE 50–82; RESP 16–20; TEMP 97.6–98.2; O2SAT 92–94
[2017-03-02] MEDS: ALBUTEROL SULFATE 90 MCG/ACT HFA 18 GM INHALER INH SCH ×4 (06:00→17:47)
[2017-03-02] MEDS: DOXAZOSIN MESYLATE 4 MG TAB PO SCH (09:00)
[2017-03-02] MEDS: METOPROLOL TARTRATE 100 MG TAB PO SCH ×2 (09:00→10:36)
[2017-03-02] MEDS: LISINOPRIL 5 MG TAB PO SCH (09:00)
[2017-03-02] MEDS: POTASSIUM CHLORIDE 20 MEQ CONTROLLED RELEASE TAB PO SCH (09:00)
[2017-03-02] MEDS: SODIUM CHLORIDE 0.9% FLUSH 10 ML FLUSH IV FLUSH SCH ×2 (10:33→20:59)
[2017-03-02] MEDS: FLUTICASONE 200 MCG/VILANTEROL 25 MCG INHALER INH SCH (10:33)
[2017-03-02] MEDS: FINASTERIDE 5 MG TAB PO SCH (10:35)
[2017-03-02] MEDS: DOCUSATE SODIUM 50 MG/SENNA 8.6 MG TAB PO SCH ×2 (10:35→20:58)
[2017-03-02] MEDS: CHOLECALCIFEROL (VIT D3) 5000 UNIT CAP PO SCH (10:36)
[2017-03-02] MEDS: FAMOTIDINE 20 MG TAB PO SCH ×2 (10:38→20:58)
[2017-03-02] MEDS: CIPROFLOXACIN 500 MG TAB PO SCH ×2 (10:38→20:57)
[2017-03-02] MEDS: methylPREDNISolone SOD SUCC 125 MG/2 ML VIAL IV PUSH SCH ×2 (10:46→20:59)
[2017-03-02] MEDS: ENOXAPARIN SODIUM 40 MG/0.4 ML SYRINGE SQ SCH (16:52)
--- NOTE | 2017-03-02 19:05 | HHI.PR ---
Subjective Remarks pt was scheduled for dc to snf this am but became bradycardic metoprolol and dc both held Objective Vital Signs Date Time Temp Pulse Resp B/P Pulse Ox O2 Delivery O2 Flow Rate FiO2 03/02/17 16:05 97.9 63 19 143/65 93 03/02/17 12:07 98.2 62 20 153/66 92 03/02/17 10:00 50 03/02/17 10:00 94 Room Air 03/02/17 08:14 97.7 54 20 155/72 94 03/02/17 04:00 Room Air 03/02/17 04:00 97.8 55 18 163/68 94 03/02/17 00:00 97.6 57 18 157/74 92 03/02/17 00:00 Room Air 03/01/17 20:00 88 03/01/17 20:00 97.7 72 18 137/63 94 03/01/17 20:00 Room Air I/O 03/01/17 03/01/17 03/01/17 03/02/17 03/02/17 03/02/17 07:00 15:00 23:00 07:00 15:00 23:00 Intake Total 240 ml 240 ml 240 ml 480 ml 360 ml Output Total 300 ml 400 ml 400 ml 550 ml 500 ml Balance -60 ml -160 ml -160 ml -70 ml -140 ml Intake Oral 240 ml 240 ml 240 ml 480 ml 360 ml IV Total 0 ml Output Urine Total 300 ml 400 ml 400 ml 550 ml 500 ml # Voids 2 # Bowel Movements 0 0 0 0 Result Diagram: 02/28/17 1841 02/28/17 1841 Imaging Last 72 hours Impressions Chest X-Ray 02/28/17 0000 Signed Impressions: Service Date/Time: Tuesday, February 28, 2017 15:39 - CONCLUSION: No acute cardiopulmonary disease. There is anterior wedging of one of the lower thoracic vertebrae most likely chronic, however not present on the study from 2011. KKevin Ontiveros MD Objective Remarks GENERAL: frail SKIN: Warm and dry. HEAD: Atraumatic. Normocephalic. EYES: Pupils equal and round. No scleral icterus. No injection or drainage. ENT: No nasal bleeding or discharge. Mucous membranes pink and moist. NECK: Trachea midline. No JVD. CARDIOVASCULAR: Regular rate and rhythm. RESPIRATORY: No accessory muscle use. few rhonchi present. Breath sounds equal bilaterally. few rhonchi present GASTROINTESTINAL: Abdomen soft, non-tender, nondistended. Hepatic and splenic margins not palpable. MUSCULOSKELETAL: Extremities without clubbing, cyanosis, or edema. No obvious deformities. NEUROLOGICAL: Awake and alert. No obvious cranial nerve deficits. Motor grossly within normal limits. Normal speech tremor diminished. PSYCHIATRIC: Appropriate mood and affect; insight and judgment normal. Medications and IVs Inpatient Medications Acetaminophen/ Codeine Phosphate (Tylenol-Codeine #3) 2 tab Q4H PRN PO PAIN 6- 10; Start 02/27/17 at 23:45 Albuterol Sulfate (Ventolin Hfa Inh) 2 puff Q6HR INH Last administered on 17:47; Start 02/25/17 at 18:00 Albuterol/ Ipratropium (Duoneb Neb) 1 ampule Q6HR WHILE AWAKE NEB NEB Last administered on 03/01/17 11:37; Start 02/25/17 at 14:00; Stop 03/01/17 at 14:00 ; Status DC Amlodipine Besylate (Norvasc) 10 mg DAILY PO Last administered on 03/02/17 10: 40; Start 02/26/17 at 09:00 Azithromycin 500 mg/Sodium Chloride 250 ml @ 250 mls/hr Q24H IV Last administered on 02/25/17 21:14; Start 02/25/17 at 20:00; Stop 02/26/17 at 14:03 ; Status DC Bisacodyl (Dulcolax Supp) 10 mg DAILY PRN RECTAL SEVERE CONSITIPATION; Start at 21:45 Ceftriaxone Sodium 1000 mg/ Sodium Chloride 100 ml @ 200 mls/hr ONCE ONCE IV Last administered on 02/24/17 18:45; Start 02/24/17 at 18:45; Stop 02/24/17 at 19:14; Status DC Ceftriaxone Sodium/Sodium Chloride (Rocephin Inj/NS Inj) 100 ml @ 200 mls/hr Q24H IV Last administered on 02/25/17 18:12; Start 02/25/17 at 18:00; Stop at 14:03; Status DC Cholecalciferol 5000 units 5,000 units DAILY PO Last administered on 03/02/17 10:36; Start 02/27/17 at 09:00 Ciprofloxacin (Cipro) 500 mg Q12HR PO Last administered on 03/02/17 10:38; Start 02/28/17 at 21:00 Doxazosin Mesylate (Cardura) 8 mg DAILY PO Last administered on 03/02/17 09:00 ; Start 02/25/17 at 09:00 Enalaprilat (Vasotec Inj) 1.25 mg Q6H PRN IV PUSH SBP>160, DBP>90 Last administered on 02/28/17 01:24; Start 02/25/17 at 14:30 Enoxaparin Sodium (Lovenox Inj) 40 mg Q24H SQ Last administered on 03/02/17 16 :52; Start 02/25/17 at 15:00 Famotidine (Pepcid) 10 mg BID PO Last administered on 03/02/17 10:38; Start at 21:00 Finasteride (Proscar) 5 mg DAILY PO Last administered on 03/02/17 10:35; Start 02/25/17 at 09:00 Flumazenil (Romazicon Inj) 0.2 mg Q1M PRN IV PUSH SEE LABEL COMMENTS; Start 07/03 at 19:45 Fluticasone/ Vilanterol (Breo Ellipta 200-25 Inh) 1 puff DAILY INH Last administered on 03/02/17 10:33; Start 02/25/17 at 09:00 Lactulose (Lactulose Liq) 30 ml DAILY PRN PO SEVERE CONSITIPATION; Start at 21:45 Levofloxacin/ Dextrose (Levaquin 750 Mg Premix Inj) 150 ml @ 100 mls/hr Q24H IV Last administered on 02/27/17 13:43; Start 02/26/17 at 14:00; Stop at 14:15; Status DC Lisinopril (Prinivil) 5 mg DAILY PO Last administered on 03/01/17 09:25; Start 02/27/17 at 09:00 Lorazepam (Ativan Inj) 2 mg Q15M PRN IV PUSH CIWA > 20; Start 02/24/17 at 19:45 Lorazepam (Ativan) 2 mg Q2H PRN PO CIWA 11-14; Start 02/24/17 at 19:45 Lorazepam 1 mg 1 mg ONCE ONCE IV PUSH Last administered on 02/24/17 19:00; Start 02/24/17 at 18:45; Stop 02/24/17 at 18:46; Status DC Magnesium Hydroxide (Milk Of Magnesia Liq) 30 ml Q12H PRN PO MILD - MODERATE CONSTIPATION; Start 02/24/17 at 21:45 Methylprednisolone Sodium Succinate (SoluMEDROL INJ) 60 mg Q12HR IV PUSH Last administered on 03/02/17 10:46; Start 02/25/17 at 21:00 Metoprolol Tartrate (Lopressor) 12.5 mg BID PO ; Start 03/02/17 at 21:00 Miscellaneous (Pill Splitter) 1 ea UNSCH PRN OTHER SEE LABEL COMMENTS; Start at 21:00 Naloxone HCl (Narcan Inj) 0.4 mg UNSCH PRN IV SEE LABEL COMMENTS; Start at 21:45 Potassium Chloride (KCl) 40 meq DAILY PO Last administered on 02/28/17 09:54; Start 02/25/17 at 09:00; Stop 03/02/17 at 14:20; Status DC Senna/Docusate Sodium (Elvie-Colace) 1 tab BID PO Last administered on 10:35; Start 02/25/17 at 09:00 Sennosides (Senokot) 17.2 mg Q12H PRN PO MODERATE - SEVERE CONSTIPATION; Start 02/24/17 at 21:45 Sodium Chloride (NS 1000 ml Inj) 1,000 ml @ 999 mls/hr BOLUS ONCE IV Last administered on 02/24/17 18:45; Start 02/24/17 at 18:45; Stop 02/24/17 at 19:45 ; Status DC Sodium Chloride (NS Flush) 2 ml BID IV FLUSH Last administered on 03/02/17 10: 33; Start 02/25/17 at 09:00 Tamsulosin HCl (Flomax) 0.4 mg HS PO Last administered on 03/01/17 20:47; Start 02/25/17 at 21:00 Trazodone HCl 200 mg 200 mg HS PO Last administered on 03/01/17 20:47; Start 02/25/17 at 21:00 Assessment and Plan Problem List: (1) Weakness Status: Acute Plan: dc to snf rehab once bp stable (2) COPD exacerbation Status: Acute Plan: infiltrate resolved will continue duoneb Assessment and Plan pulmonary infiltrate repeat cxr infiltrate resolved UTI PSEUDIOMONAS add cipro DEBILITY DT hospital rehab Discussed Condition With patient Discharge Planning discussed with patient and victoria brennan will plan dc to [facility] SNF in am if bp stable Tez Sidhu DO Mar 02, 2017 19:05
[2017-03-02] MEDS ORDERED: BISACODYL 10 MG SUPP RECTAL ONE (19:30)
--- NOTE | 2017-03-02 19:59 | HHI.PR ---
Subjective Remarks 72 YOWM with COPD,Lung infilt UC Pseudomonas no Fever Weak no N.V Breathing better Did't move bowel, denies constipation Objective Vital Signs Vital Signs Date Time Temp Pulse Resp B/P Pulse Ox O2 Delivery O2 Flow Rate FiO2 03/02/17 16:05 97.9 63 19 143/65 93 03/02/17 12:07 98.2 62 20 153/66 92 03/02/17 10:00 50 03/02/17 10:00 94 Room Air 03/02/17 08:14 97.7 54 20 155/72 94 03/02/17 04:00 Room Air 03/02/17 04:00 97.8 55 18 163/68 94 03/02/17 00:00 97.6 57 18 157/74 92 03/02/17 00:00 Room Air 03/01/17 20:00 88 03/01/17 20:00 97.7 72 18 137/63 94 03/01/17 20:00 Room Air I/O 03/01/17 03/01/17 03/01/17 03/02/17 03/02/17 03/02/17 07:00 15:00 23:00 07:00 15:00 23:00 Intake Total 240 ml 240 ml 240 ml 480 ml 360 ml Output Total 300 ml 400 ml 400 ml 550 ml 500 ml Balance -60 ml -160 ml -160 ml -70 ml -140 ml Intake Oral 240 ml 240 ml 240 ml 480 ml 360 ml IV Total 0 ml Output Urine Total 300 ml 400 ml 400 ml 550 ml 500 ml # Voids 2 # Bowel Movements 0 0 0 0 Result Diagram: 02/28/17184002/28/171840 Objective Remarks GENERAL: MBMN WM NAD SKIN: Warm and dry. HEAD: Normocephalic. EYES: No scleral icterus. No injection or drainage. NECK: Supple, trachea midline. No JVD or lymphadenopathy. CARDIOVASCULAR: Regular rate and rhythm without murmurs, gallops, or rubs. RESPIRATORY: Breath sounds equal bilaterally. No accessory muscle use. GASTROINTESTINAL: Abdomen soft, non-tender, nondistended. MUSCULOSKELETAL: No cyanosis, or edema. BACK: Nontender without obvious deformity. No CVA tenderness. A/P Assessment and Plan COPD Lung infilterates Pseudomonas mUTI Nicotine use Etoh use PLAN: Cont Abx Aerosol nebs Stable on RA Stable from pulm standpoint Cont Stool softner Dulcolax supp prn Jose Giron MD Mar 02, 2017 19:59
[2017-03-02] MEDS ORDERED: TEMAZEPAM 15 MG CAP PO PRN (20:45)
[2017-03-02] MEDS: METOPROLOL TARTRATE 25 MG TAB PO SCH (20:56)
[2017-03-02] MEDS: traZODone HCL 100 MG TAB PO SCH (20:58)
[2017-03-02] MEDS: TAMSULOSIN HCL 0.4 MG CAP PO SCH (20:58)
[2017-03-02] MEDS ORDERED: PILL SPLITTER OTHER PRN (21:00)
--- NOTE | 2017-03-02 21:20 | PD.CARD.PN ---
Subjective Subjective Remarks No CP or excessive dyspnea, feels better Objective Medications Current Medications Medications (Trade) Dose Ordered Sig/Nayeli Route Start Time Stop Time Status Last Admin (Romazicon Inj) 0.2 mg Q1M PRN IV PUSH 02/24/17 19:45 (Ativan) 1 mg Q4H PRN PO 02/24/17 19:45 02/25/17 17:00 (Ativan Inj) 1 mg Q4H PRN IV PUSH 02/24/17 19:45 02/25/17 13:16 (Ativan) 2 mg Q2H PRN PO 02/24/17 19:45 (Ativan Inj) 2 mg Q2H PRN IV PUSH 02/24/17 19:45 (Ativan Inj) 2 mg Q1H PRN IV PUSH 02/24/17 19:45 02/26/17 03:22 (Ativan Inj) 2 mg Q15M PRN IV PUSH 02/24/17 19:45 (NS Flush) 2 ml UNSCH PRN IV FLUSH 02/24/17 21:45 (NS Flush) 2 ml BID IV FLUSH 02/25/17 09:00 03/02/17 20:59 (Narcan Inj) 0.4 mg UNSCH PRN IV 02/24/17 21:45 (Elvie-Colace) 1 tab BID PO 02/25/17 09:00 03/02/17 20:58 (Milk Of Magnesia Liq) 30 ml Q12H PRN PO 02/24/17 21:45 (Senokot) 17.2 mg Q12H PRN PO 02/24/17 21:45 (Dulcolax Supp) 10 mg DAILY PRN RECTAL 02/24/17 21:45 (Lactulose Liq) 30 ml DAILY PRN PO 02/24/17 21:45 (Cardura) 8 mg DAILY PO 02/25/17 09:00 03/02/17 09:00 (Proscar) 5 mg DAILY PO 02/25/17 09:00 03/02/17 10:35 (Breo Ellipta 200-25 Inh) 1 puff DAILY INH 02/25/17 09:00 03/02/17 10:33 (Flomax) 0.4 mg HS PO 02/25/17 21:00 03/02/17 20:58 (Desyrel) 200 mg HS PO 02/25/17 21:00 03/02/17 20:58 (SoluMEDROL INJ) 60 mg Q12HR IV PUSH 02/25/17 21:00 03/02/17 20:59 (Norvasc) 10 mg DAILY PO 02/26/17 09:00 03/02/17 10:40 (Vasotec Inj) 1.25 mg Q6H PRN IV PUSH 02/25/17 14:30 02/28/17 01:24 (Lovenox Inj) 40 mg Q24H SQ 02/25/17 15:00 03/02/17 16:52 (Ventolin Hfa Inh) 2 puff Q6HR INH 02/25/17 18:00 03/02/17 17:47 (Vitamin D3) 5,000 units DAILY PO 02/27/17 09:00 03/02/17 10:36 (Prinivil) 5 mg DAILY PO 02/27/17 09:00 03/01/17 09:25 (Pepcid) 10 mg BID PO 02/27/17 21:00 03/02/17 20:58 (Tylenol-Codeine #3) 1 tab Q4H PRN PO 02/27/17 23:45 03/01/17 21:51 (Tylenol-Codeine #3) 2 tab Q4H PRN PO 02/27/17 23:45 (Cipro) 500 mg Q12HR PO 02/28/17 21:00 03/02/17 20:57 (Lopressor) 12.5 mg BID PO 03/02/17 21:00 03/02/17 20:56 (Pill Splitter) 1 ea UNSCH PRN OTHER 03/02/17 21:00 (Restoril) 15 mg HS PRN PO 03/02/17 20:45 Vital Signs / I&O Vital Signs Date Time Temp Pulse Resp B/P Pulse Ox O2 Delivery O2 Flow Rate FiO2 03/02/17 20:00 97.8 81 16 128/62 92 03/02/17 16:05 97.9 63 19 143/65 93 03/02/17 12:07 98.2 62 20 153/66 92 03/02/17 10:00 50 03/02/17 10:00 94 Room Air 03/02/17 08:14 97.7 54 20 155/72 94 03/02/17 04:00 Room Air 03/02/17 04:00 97.8 55 18 163/68 94 03/02/17 00:00 97.6 57 18 157/74 92 03/02/17 00:00 Room Air I/O 03/01/17 03/01/17 03/01/17 03/02/17 03/02/17 03/02/17 07:00 15:00 23:00 07:00 15:00 23:00 Intake Total 240 ml 240 ml 240 ml 480 ml 360 ml Output Total 300 ml 400 ml 400 ml 550 ml 500 ml Balance -60 ml -160 ml -160 ml -70 ml -140 ml Intake Oral 240 ml 240 ml 240 ml 480 ml 360 ml IV Total 0 ml Output Urine Total 300 ml 400 ml 400 ml 550 ml 500 ml # Voids 2 # Bowel Movements 0 0 0 0 Physical Exam GENERAL: In NAD SKIN: Warm and dry. HEAD: Normocephalic. EYES: No scleral icterus. No injection or drainage. NECK: Supple, trachea midline. No JVD or lymphadenopathy. CARDIOVASCULAR: Regular rate and rhythm without murmurs, gallops, or rubs. RESPIRATORY: Breath sounds equal bilaterally. No accessory muscle use. GASTROINTESTINAL: Abdomen soft, non-tender, nondistended. MUSCULOSKELETAL: No cyanosis, or edema. Laboratory Laboratory Tests Test 02/26/17 02/28/17 02/28/17 05:27 05:30 18:41 Phosphorus Level 3.4 MG/DL Magnesium Level 2.0 MG/DL Total Bilirubin 0.3 MG/DL Aspartate Amino Transf 15 U/L (AST/SGOT) Alanine Aminotransferase 19 U/L (ALT/SGPT) Alkaline Phosphatase 52 U/L Total Protein 5.7 GM/DL Albumin 2.6 GM/DL Prealbumin 25 MG/DL 25-Hydroxy Vitamin D Total 25.5 ng/ML Differential Total Cells 100 Counted Neutrophils % (Manual) 80 % Band Neutrophils % 6 % Lymphocytes % 10 % Monocytes % 2 % Neutrophils # (Manual) 6.1 TH/MM3 Metamyelocytes 1 % Myelocytes 1 % White Blood Count 10.1 TH/MM3 Red Blood Count 4.26 MIL/MM3 Hemoglobin 15.0 GM/DL Hematocrit 43.2 % Mean Corpuscular Volume 101.4 FL Mean Corpuscular Hemoglobin 35.3 PG Mean Corpuscular Hemoglobin 34.8 % Concent Red Cell Distribution Width 12.8 % Platelet Count 132 TH/MM3 Mean Platelet Volume 9.5 FL Neutrophils (%) (Auto) 89.1 % Lymphocytes (%) (Auto) 4.8 % Monocytes (%) (Auto) 5.9 % Eosinophils (%) (Auto) 0.0 % Basophils (%) (Auto) 0.2 % Neutrophils # (Auto) 9.0 TH/MM3 Lymphocytes # (Auto) 0.5 TH/MM3 Monocytes # (Auto) 0.6 TH/MM3 Eosinophils # (Auto) 0.0 TH/MM3 Basophils # (Auto) 0.0 TH/MM3 CBC Comment AUTO DIFF Differential Comment AUTO DIFF CONFIRMED Platelet Estimate NORMAL Platelet Morphology Comment NORMAL Red Cell Morphology Comment NORMAL Sodium Level 135 MEQ/L Potassium Level 5.0 MEQ/L Chloride Level 102 MEQ/L Carbon Dioxide Level 26.8 MEQ/L Anion Gap 6 MEQ/L Blood Urea Nitrogen 41 MG/DL Creatinine 1.76 MG/DL Estimat Glomerular Filtration 38 ML/MIN Rate Random Glucose 156 MG/DL Calcium Level 8.8 MG/DL Imaging Last Impressions Chest X-Ray 02/28/17 0000 Signed Impressions: Service Date/Time: Tuesday, February 28, 2017 15:39 - CONCLUSION: No acute cardiopulmonary disease. There is anterior wedging of one of the lower thoracic vertebrae most likely chronic, however not present on the study from 2011. K. Keyur Ontiveros MD Lower Extremity Ultrasound 02/24/17 1721 Signed Impressions: Service Date/Time: Friday, February 24, 2017 17:44 - CONCLUSION: Normal examination. Jose Roberto Benitez Jr., MD Assessment and Plan Problem List: (1) Sinus tachycardia (2) COPD exacerbation (3) Urinary tract infection (4) Hypertension (5) Chronic renal disease (6) Alcohol abuse (7) Tobacco abuse Assessment and Plan HR controlled with beta bernard. BP better controlled. No new cardiac issues. Increase activity. Transfer to rehab as planned. Problem Qualifiers (1) Urinary tract infection: Qualified Code: N39.0 - Urinary tract infection with hematuria, site unspecified Immanuel Zazueta MD Mar 02, 2017 21:20
[2017-03-03] VITALS: BP 148/72; PULSE 63; RESP 18; TEMP 97.8; O2SAT 92
[2017-03-03 04:00] VITALS: BP 149/67; PULSE 60; RESP 18; TEMP 97.8; O2SAT 92
[2017-03-03] MEDS: ALBUTEROL SULFATE 90 MCG/ACT HFA 18 GM INHALER INH SCH ×3 (05:43→12:03)
[2017-03-03 08:00] VITALS: BP 144/68; PULSE 62; RESP 20; TEMP 97.5; O2SAT 94
[2017-03-03 09:00] VITALS: PULSE 52
[2017-03-03] MEDS: DOXAZOSIN MESYLATE 4 MG TAB PO SCH (09:00)
[2017-03-03] MEDS: METOPROLOL TARTRATE 25 MG TAB PO SCH ×2 (09:00→09:02)
[2017-03-03] MEDS: SODIUM CHLORIDE 0.9% FLUSH 10 ML FLUSH IV FLUSH SCH (09:01)
[2017-03-03] MEDS: methylPREDNISolone SOD SUCC 125 MG/2 ML VIAL IV PUSH SCH (09:01)
[2017-03-03] MEDS: DOCUSATE SODIUM 50 MG/SENNA 8.6 MG TAB PO SCH (09:01)
[2017-03-03] MEDS: CIPROFLOXACIN 500 MG TAB PO SCH (09:01)
[2017-03-03] MEDS: FAMOTIDINE 20 MG TAB PO SCH (09:02)
[2017-03-03] MEDS: FINASTERIDE 5 MG TAB PO SCH (09:02)
[2017-03-03] MEDS: LISINOPRIL 5 MG TAB PO SCH (09:03)
[2017-03-03] MEDS: FLUTICASONE 200 MCG/VILANTEROL 25 MCG INHALER INH SCH (09:05)
[2017-03-03] MEDS: CHOLECALCIFEROL (VIT D3) 5000 UNIT CAP PO SCH (09:08)
[2017-03-03 12:00] VITALS: BP 156/69; PULSE 87; RESP 20; TEMP 97.3; O2SAT 92
[2017-03-03] MEDS ORDERED: PRED10 PO (13:51)
[2017-03-03] MEDS ORDERED: VENTAER INH (13:51)
[2017-03-03] MEDS ORDERED: CHOL5000 PO (13:51)
[2017-03-03] MEDS ORDERED: PRED20 PO ×2 (13:51)
[2017-03-03] MEDS ORDERED: AMLO10 PO (13:51)
[2017-03-03] MEDS ORDERED: PRED5TAB PO (13:51)
[2017-03-03] MEDS ORDERED: LISI-519 PO (13:51)
[2017-03-03] MEDS ORDERED: CIPR-9 PO (13:51)
[2017-03-03] MEDS ORDERED: SENN1TAB PO (13:51)
[2017-03-03] MEDS ORDERED: METO25TA3 PO (13:51)
--- NOTE | 2017-03-03 13:55 | HHI.DS ---
Discharge Summary Admission Date Feb 24, 2017 at 19:44 Discharge Date: Mar 03, 2017 Admitting Diagnosis SIRS; COPD EXACERBATION; UTI; PNEUMONIA; ETOH WITHDRAWAL (1) Hypertension (2) Chronic renal disease (3) Weakness (4) BPH (benign prostatic hyperplasia) (5) COPD exacerbation Brief History 72-year-old male with history of CAD, hypertension, COPD, BPH, alcohol dependency, tobacco dependency, presents to the emergency department for evaluation of worsening shortness of breath, urinary retention, and generalized weakness worsening of the last few days.Patient was found to have infiltrates and pseudomonas UTI. He was treated and will be discharged on antibiotics. He was followed by cardiology and pulmonary during his course. Initially with PT patient was very tachycardic but that has also improved. Patient is discharge to [facility] rehab and will be followed by Dr. Sidhu CBC/BMP: 02/28/17 1841 02/28/17 1841 Significant Findings Laboratory Tests Test 02/28/17 18:41 Red Blood Count 4.26 MIL/MM3 (4.50-5.90) Mean Corpuscular Volume 101.4 FL (80.0-100.0) Mean Corpuscular Hemoglobin 35.3 PG (27.0-34.0) Platelet Count 132 TH/MM3 (150-450) Neutrophils (%) (Auto) 89.1 % (16.0-70.0) Lymphocytes (%) (Auto) 4.8 % (9.0-44.0) Neutrophils # (Auto) 9.0 TH/MM3 (1.8-7.7) Lymphocytes # (Auto) 0.5 TH/MM3 (1.0-4.8) Sodium Level 135 MEQ/L (136-145) Blood Urea Nitrogen 41 MG/DL (7-18) Creatinine 1.76 MG/DL (0.60-1.30) Estimat Glomerular Filtration 38 ML/MIN (>89) Rate Random Glucose 156 MG/DL (74-106) PE at Discharge GENERAL: Alert and cooperative. SKIN: Warm and dry. HEAD: Normocephalic. EYES: No scleral icterus. No injection or drainage. NECK: Supple, trachea midline. No JVD or lymphadenopathy. CARDIOVASCULAR: Regular rate and rhythm without murmurs, gallops, or rubs. RESPIRATORY: Breath sounds equal bilaterally. No accessory muscle use. GASTROINTESTINAL: Abdomen soft, non-tender, nondistended. MUSCULOSKELETAL: No cyanosis, or edema. BACK: Nontender without obvious deformity. No CVA tenderness. Hospital Course 72-year-old male with history of CAD, hypertension, COPD, BPH, alcohol dependency, tobacco dependency, presents to the emergency department for evaluation of worsening shortness of breath, urinary retention, and generalized weakness worsening of the last few days. Patient states over the last few nights he has voided multiple times but only small amounts. He states his urine streams have been painful before starting and it finished but not during the actual void. Denies any fever or chills. He does report some suprapubic discomfort. Denies any chest pain. No fever. He has felt chilled. He has no other symptoms to report. Pt Condition on Discharge: Good Discharge Disposition: Discharge to SNF Discharge Instructions DIET: Follow Instructions for: As Tolerated, No Restrictions Activities you can perform: Regular-No Restrictions Follow up Referrals: PCP Follow-up - Next Day with Nahum Thompson Orders: CBC WITH DIFF - Next Day @ [facility] COMP MET PROF (CMP) - Next Day @ [facility] New Medications: Albuterol 18 GM Inh (Ventolin Hfa 18 GM Inh) 90 Mcg/Act Aer 2 PUFF INH Q6HR Breathing Treatment #30 INHALER Amlodipine (Norvasc) 10 Mg Tab 10 MG PO DAILY Blood Pressure Management #30 TAB Cholecalciferol (Vitamin D3) 5,000 Unit Cap 5000 UNITS PO DAILY Nutritional Supplement #30 CAP Ciprofloxacin (Cipro) 500 Mg Tab 500 MG PO Q12HR Infection #10 TAB Lisinopril (Lisinopril) 5 Mg Tab 5 MG PO DAILY Blood Pressure Management #30 TAB Metoprolol Tartrate (Metoprolol Tartrate) 25 Mg Tab 12.5 MG PO BID Blood Pressure Management #60 TAB Prednisone (Prednisone) 20 Mg Tab 20 MG PO BID Breathing Treatment #6 TAB Prednisone (Prednisone) 20 Mg Tab 20 MG PO DAILY Broncospasm #3 TAB Prednisone (Prednisone) 10 Mg Tab 10 MG PO DAILY Breathing Treatment #3 TAB Prednisone (Prednisone) 5 Mg Tab 5 MG PO DAILY Breathing Treatment #3 TAB Sennosides-Docusate Sodium (Senna Plus 8.6-50 mg) 1 Tab Tab 1 TAB PO BID Constipation #20 TAB Continued Medications: Doxazosin (Doxazosin) 8 Mg Tab 8 MG PO DAILY #30 Ref 0 TAB Finasteride (Finasteride) 5 Mg Tab 5 MG PO DAILY Do not crush. Manage Prostate Problems #30 Ref 0 TAB Fluticasone-Vilanterol Inh (Breo Ellipta Inh) 200-25 Mcg/Act Inh 1 PUFF INH DAILY Use daily at the same time. #1 Ref 0 INHALER Tamsulosin (Tamsulosin) 0.4 Mg Cap 0.4 MG PO HS Manage Prostate Problems #30 Ref 0 CAP Trazodone (Trazodone) 100 Mg Tablet 200 MG PO HS Control Depression #30 Ref 0 TAB Discontinued Medications: Amlodipine (Amlodipine) 5 Mg Tab 5 MG PO DAILY Blood Pressure Management #30 Ref 0 TAB Metoprolol Tartrate (Metoprolol Tartrate) 25 Mg Tab 25 MG PO BID #60 Ref 0 TAB Potassium Chloride Microencaps (Potassium Chloride Microencaps) 20 Meq Tab 40 MEQ PO DAILY Electrolyte Replacement #30 Ref 0 TAB Raysa Bhakta [facility] Mar 03, 2017 13:55
[2017-03-03 15:15] VITALS: BP 128/60; PULSE 80; RESP 18; TEMP 97.4; O2SAT 93
--- NOTE | 2017-03-03 15:42 | PD.CARD.PN ---
Subjective Subjective Remarks No CP or SOB, feels better Objective Medications Current Medications Medications (Trade) Dose Ordered Sig/Nayeli Route Start Time Stop Time Status Last Admin (Romazicon Inj) 0.2 mg Q1M PRN IV PUSH 02/24/17 19:45 (Ativan) 1 mg Q4H PRN PO 02/24/17 19:45 02/25/17 17:00 (Ativan Inj) 1 mg Q4H PRN IV PUSH 02/24/17 19:45 02/25/17 13:16 (Ativan) 2 mg Q2H PRN PO 02/24/17 19:45 (Ativan Inj) 2 mg Q2H PRN IV PUSH 02/24/17 19:45 (Ativan Inj) 2 mg Q1H PRN IV PUSH 02/24/17 19:45 02/26/17 03:22 (Ativan Inj) 2 mg Q15M PRN IV PUSH 02/24/17 19:45 (NS Flush) 2 ml UNSCH PRN IV FLUSH 02/24/17 21:45 (NS Flush) 2 ml BID IV FLUSH 02/25/17 09:00 03/03/17 09:01 (Narcan Inj) 0.4 mg UNSCH PRN IV 02/24/17 21:45 (Elvie-Colace) 1 tab BID PO 02/25/17 09:00 03/03/17 09:01 (Milk Of Magnesia Liq) 30 ml Q12H PRN PO 02/24/17 21:45 (Senokot) 17.2 mg Q12H PRN PO 02/24/17 21:45 (Dulcolax Supp) 10 mg DAILY PRN RECTAL 02/24/17 21:45 (Lactulose Liq) 30 ml DAILY PRN PO 02/24/17 21:45 (Cardura) 8 mg DAILY PO 02/25/17 09:00 03/03/17 09:00 (Proscar) 5 mg DAILY PO 02/25/17 09:00 03/03/17 09:02 (Breo Ellipta 200-25 Inh) 1 puff DAILY INH 02/25/17 09:00 03/03/17 09:05 (Flomax) 0.4 mg HS PO 02/25/17 21:00 03/02/17 20:58 (Desyrel) 200 mg HS PO 02/25/17 21:00 03/02/17 20:58 (SoluMEDROL INJ) 60 mg Q12HR IV PUSH 02/25/17 21:00 03/03/17 09:01 (Norvasc) 10 mg DAILY PO 02/26/17 09:00 03/03/17 09:01 (Vasotec Inj) 1.25 mg Q6H PRN IV PUSH 02/25/17 14:30 02/28/17 01:24 (Lovenox Inj) 40 mg Q24H SQ 02/25/17 15:00 03/02/17 16:52 (Ventolin Hfa Inh) 2 puff Q6HR INH 02/25/17 18:00 03/03/17 12:03 (Vitamin D3) 5,000 units DAILY PO 02/27/17 09:00 03/03/17 09:08 (Prinivil) 5 mg DAILY PO 02/27/17 09:00 03/03/17 09:03 (Pepcid) 10 mg BID PO 02/27/17 21:00 03/03/17 09:02 (Tylenol-Codeine #3) 1 tab Q4H PRN PO 02/27/17 23:45 03/01/17 21:51 (Tylenol-Codeine #3) 2 tab Q4H PRN PO 02/27/17 23:45 (Cipro) 500 mg Q12HR PO 02/28/17 21:00 03/03/17 09:01 (Lopressor) 12.5 mg BID PO 03/02/17 21:00 03/02/17 20:56 (Pill Splitter) 1 ea UNSCH PRN OTHER 03/02/17 21:00 (Restoril) 15 mg HS PRN PO 03/02/17 20:45 (Deltasone) 20 mg BID PO 03/03/17 21:00 03/05/17 09:00 (Deltasone) 20 mg DAILY PO 03/06/17 09:00 03/08/17 21:00 (Deltasone) 10 mg DAILY PO 03/09/17 09:00 03/11/17 21:00 (Deltasone) 5 mg DAILY PO 03/12/17 09:00 03/15/17 21:00 Vital Signs / I&O Vital Signs Date Time Temp Pulse Resp B/P Pulse Ox O2 Delivery O2 Flow Rate FiO2 03/03/17 09:00 52 03/03/17 08:00 97.5 62 20 144/68 94 03/03/17 04:00 97.8 60 18 149/67 92 03/03/17 00:00 97.8 63 18 148/72 92 03/02/17 20:05 82 03/02/17 20:05 Room Air 03/02/17 20:00 97.8 81 16 128/62 92 03/02/17 16:05 97.9 63 19 143/65 93 I/O 03/02/17 03/02/17 03/02/17 03/03/17 03/03/17 03/03/17 07:00 15:00 23:00 07:00 15:00 23:00 Intake Total 480 ml 360 ml Output Total 550 ml 500 ml 200 ml 200 ml Balance -70 ml -140 ml -200 ml -200 ml Intake Oral 480 ml 360 ml IV Total 0 ml Output Urine Total 550 ml 500 ml 200 ml 200 ml # Bowel Movements 0 0 1 Physical Exam GENERAL: In NAD SKIN: Warm and dry. HEAD: Normocephalic. EYES: No scleral icterus. No injection or drainage. NECK: Supple, trachea midline. No JVD or lymphadenopathy. CARDIOVASCULAR: Regular rate and rhythm without murmurs, gallops, or rubs. RESPIRATORY: Breath sounds equal bilaterally. No accessory muscle use. GASTROINTESTINAL: Abdomen soft, non-tender, nondistended. MUSCULOSKELETAL: No cyanosis, or edema. Laboratory Laboratory Tests Test 02/28/17 02/28/17 05:30 18:41 Differential Total Cells 100 Counted Neutrophils % (Manual) 80 % Band Neutrophils % 6 % Lymphocytes % 10 % Monocytes % 2 % Neutrophils # (Manual) 6.1 TH/MM3 Metamyelocytes 1 % Myelocytes 1 % White Blood Count 10.1 TH/MM3 Red Blood Count 4.26 MIL/MM3 Hemoglobin 15.0 GM/DL Hematocrit 43.2 % Mean Corpuscular Volume 101.4 FL Mean Corpuscular Hemoglobin 35.3 PG Mean Corpuscular Hemoglobin 34.8 % Concent Red Cell Distribution Width 12.8 % Platelet Count 132 TH/MM3 Mean Platelet Volume 9.5 FL Neutrophils (%) (Auto) 89.1 % Lymphocytes (%) (Auto) 4.8 % Monocytes (%) (Auto) 5.9 % Eosinophils (%) (Auto) 0.0 % Basophils (%) (Auto) 0.2 % Neutrophils # (Auto) 9.0 TH/MM3 Lymphocytes # (Auto) 0.5 TH/MM3 Monocytes # (Auto) 0.6 TH/MM3 Eosinophils # (Auto) 0.0 TH/MM3 Basophils # (Auto) 0.0 TH/MM3 CBC Comment AUTO DIFF Differential Comment AUTO DIFF CONFIRMED Platelet Estimate NORMAL Platelet Morphology Comment NORMAL Red Cell Morphology Comment NORMAL Sodium Level 135 MEQ/L Potassium Level 5.0 MEQ/L Chloride Level 102 MEQ/L Carbon Dioxide Level 26.8 MEQ/L Anion Gap 6 MEQ/L Blood Urea Nitrogen 41 MG/DL Creatinine 1.76 MG/DL Estimat Glomerular Filtration 38 ML/MIN Rate Random Glucose 156 MG/DL Calcium Level 8.8 MG/DL Imaging Last Impressions Chest X-Ray 02/28/17 0000 Signed Impressions: Service Date/Time: Tuesday, February 28, 2017 15:39 - CONCLUSION: No acute cardiopulmonary disease. There is anterior wedging of one of the lower thoracic vertebrae most likely chronic, however not present on the study from 2012. K. Keyur Ontiveros MD Lower Extremity Ultrasound 02/24/17 1721 Signed Impressions: Service Date/Time: Friday, February 24, 2017 17:44 - CONCLUSION: Normal examination. Jose Roberto Benitez Jr., MD Assessment and Plan Problem List: (1) Sinus tachycardia (2) COPD exacerbation (3) Urinary tract infection (4) Hypertension (5) Chronic renal disease (6) Alcohol abuse (7) Tobacco abuse Assessment and Plan Remains stable from cardiac standpoint. HR controlled with beta bernard. BP better controlled. Increase activity. [facility] as [facility]. Problem Qualifiers (1) Urinary tract infection: Qualified Code: N39.0 - Urinary tract infection with hematuria, site unspecified Immanuel Zazueta MD Mar 03, 2017 15:42
[2017-03-03] MEDS ORDERED: predniSONE 20 MG TAB PO SCH (21:00)
[2017-03-06] MEDS ORDERED: predniSONE 20 MG TAB PO SCH (09:00)
[2017-03-09] MEDS ORDERED: predniSONE 10 MG TAB PO SCH (09:00)
[2017-03-12] MEDS ORDERED: predniSONE 5 MG TAB PO SCH (09:00)
== END 2017-03-03 16:00 | DRG 191 ==
LOC: NEPC 16:31 → NEDA 19:44 → NEDH 02-25 06:39 → HCIS 02-25 12:54 → N04B 02-26 15:49
PROVIDERS: ADMIT Family Medicine; ATTEND Family Medicine
DX: J44.1 Chronic obstructive pulmonary disease with (acute) exacerbation (principal); N39.0 Urinary tract infection, site not specified; G62.9 Polyneuropathy, unspecified; J98.11 Atelectasis; F10.239 Alcohol dependence with withdrawal, unspecified; B96.5 Pseudomonas (aeruginosa) (mallei) (pseudomallei) as the cause of diseases classified elsewhere; E86.0 Dehydration; I12.9 Hypertensive chronic kidney disease with stage 1 through stage 4 chronic kidney disease, or unspecified chronic kidney disease; N18.9 Chronic kidney disease, unspecified; N40.1 Benign prostatic hyperplasia with lower urinary tract symptoms; I25.10 Atherosclerotic heart disease of native coronary artery without angina pectoris; R00.0 Tachycardia, unspecified; R91.8 Other nonspecific abnormal finding of lung field; E55.9 Vitamin D deficiency, unspecified; F17.210 Nicotine dependence, cigarettes, uncomplicated; Z85.528 Personal history of other malignant neoplasm of kidney; Z90.5 Acquired absence of kidney
CPT/HCPCS: 71010; 71020; 76937; 80048; 80053; 80076; 81001; 82306; 82550; 82948; 83605; 83690; 83735; 83880; 84100; 84134; 84484; 85007; 85025; 85027; 85610; 85730; 86403; 87077; 87086; 87186; 93005; 93971; 94640; 94664; 96365; 96375; J0456; J0696; J1650; J1956; J2060; J2930; J7030; J7050

== ENCOUNTER 2017-10-13 03:33 | Inpatient (IN) | payer MEDICARE, BC ==
[~2017-10-13] VITALS: Ht 172.7 cm; Wt 72.4 kg
[2017-10-13] VITALS (12 sets, daily range): BP systolic 118–170; BP diastolic 56–77; PULSE 67–110; RESP 18–24; TEMP 97.8–98.7; O2SAT 92–97
[~2017-10-13 03:33] MED LIST changes: +AMLO10 PO; -AMLO5TAB2 PO; +CHOL5000 PO; +CIPR-9 PO; +LISI-519 PO; -POTA20TA5 PO; -PRAV10TA PO; +PRED10 PO; +PRED20 PO; +PRED5TAB PO; +SENN1TAB PO; +TRAZ100T10 PO; -TRAZ100T4 PO; +VENTAER INH
[2017-10-13] MEDS ORDERED: SODIUM CHLORIDE 0.9% FLUSH 10 ML FLUSH IVF PRN (03:45)
--- NOTE | 2017-10-13 04:28 | RADRPT ---
EXAM DATE/TIME: 10/13/2017 03:55 [facility] COMPARISON: CHEST SINGLE AP, February 24, 2017, 17:26. INDICATIONS : Short of breath. MEDICAL HISTORY : Chronic obstructive pulmonary disease. SURGICAL HISTORY : None. ENCOUNTER: Initial ACUITY: 1 day PAIN SCORE: 0/10 LOCATION: Bilateral chest FINDINGS: Mild left lung base airspace disease similar to prior exam. No new focal pleural-parenchymal opacitie s. Cardiomediastinal contours are stable. Remainder of the exam is unchanged. CONCLUSION: 1. Persistent left lung base airspace disease, likely atelectasis/scarring. 2. No acute abnormality or significant interval change. Pedro Bunn MD on October 13, 2017 at 4:26 Board Certified Radiologist. This report was verified electronically.
--- NOTE | 2017-10-13 04:30 | RADRPT ---
EXAM DATE/TIME: 10/13/2017 03:58 [facility] COMPARISON: No previous studies available for comparison. INDICATIONS : Right ankle swelling. No known injury. MEDICAL HISTORY : Chronic obstructive pulmonary disease. SURGICAL HISTORY : None. ENCOUNTER: Initial ACUITY: 2 months PAIN SCORE: 0/10 LOCATION: Right ankle. FINDINGS: Three view exam was performed of the right ankle. The bony structures are in normal alignment. No e vidence of fracture or dislocation. Diffuse soft tissue swelling about the ankle. No erosive bony gely nge. The ankle mortise is intact. No radiopaque foreign bodies are seen. Bony mineralization is nor mal. CONCLUSION: 1. Diffuse soft tissue swelling without radiopaque foreign bodies, acute fracture or bony erosion. Pedro Bunn MD on October 13, 2017 at 4:29 Board Certified Radiologist. This report was verified electronically.
[2017-10-13 04:37] LABS: ALBUMIN 1.8 GM/DL (3.4-5.0); AST (GOT) 13 U/L (15-37); BICARBONATE 12.7 MEQ/L (21.0-32.0); BLOOD UREA NITROGEN 13 MG/DL (7-18); CHLORIDE 124 MEQ/L (98-107); CREATININE 0.99 MG/DL (0.60-1.30); GLOMERULAR FILTRATION RATE 74 ML/MIN (>89); GLUCOSE,RANDOM 54 MG/DL (74-106); MAGNESIUM 1.1 MG/DL (1.5-2.5); SODIUM (NA) 150 MEQ/L (136-145)
[2017-10-13 05:00] LABS: ALKALINE PHOSPHATASE 30 U/L (45-117); ALT (GPT) 12 U/L (12-78); TOTAL BILIRUBIN ADULT 0.3 MG/DL (0.2-1.0); TOTAL PROTEIN 3.5 GM/DL (6.4-8.2); TROPONIN I LESS THAN 0.02 NG/ML (0.02-0.05)
[2017-10-13] MEDS ORDERED: D5-1/2 NS + KCL 40 MEQ INJ 1,000 ML IV SCH (05:00)
[2017-10-13] MEDS ORDERED: AZITHROMYCIN INJ 500 MG in SODIUM CHLOR 0.9% 250 ML INJ 250 ML IV ONE (05:00)
[2017-10-13] MEDS ORDERED: POTASSIUM CHLOR 10 MEQ PREMIX 100 ML IV ONE (05:00)
[2017-10-13] MEDS ORDERED: RESP: ALBUTEROL 2.5 MG/IPRATROPIUM 0.5 MG NEB (SCH) NEB ONE (05:00)
[2017-10-13] MEDS ORDERED: POTASSIUM CHLORIDE 20 MEQ CONTROLLED RELEASE TAB PO ONE (05:00)
[2017-10-13] MEDS ORDERED: cefTRIAXone INJ 1,000 MG in SODIUM CHLORIDE 0.9% INJ 100 ML IV ONE (05:00)
[2017-10-13] MEDS: MAGNESIUM SULFATE 1 GM PREMIX 100 ML IV SCH ×2 (05:17→06:27)
--- NOTE | 2017-10-13 05:19 | RADRPT ---
EXAM DATE/TIME: 10/13/2017 04:08 [facility] COMPARISON: US LEG RIGHT VENOUS DOPPLER, February 24, 2017, 17:44. INDICATIONS : Right leg swelling. MEDICAL HISTORY : Hypertension. Coronary artery disease. Right renal carcinoma. Dyspnea. COPD. Neuropathy. SURGICAL HISTORY : Tonsillectomy. Inguinal hernia repair. Right partial nephrectomy. Right leg surgery with rods. ENCOUNTER: Subsequent ACUITY: 1 day PAIN SCORE: 3/10 LOCATION: Right leg. TECHNIQUE: Venous ultrasound of the leg was performed from the inguinal ligament to the proximal calf. Real-nigel e, color Doppler and spectral tracing, compression and augmentation techniques were used. FINDINGS: There is normal compressibility of the deep venous system from the inguinal region to the proximal ca lf. No echogenic clot is seen in the lumen of the common femoral, femoral, popliteal, and posterior tibial veins. There is a normal response of the venous system to proximal and distal augmentation an d respiration. CONCLUSION: 1. No sonographic evidence for right lower extremity DVT. Pedro Bunn MD on October 13, 2017 at 5:18 Board Certified Radiologist. This report was verified electronically.
[2017-10-13 05:28] LABS: CALCIUM 5.1 MG/DL (8.5-10.1)
[2017-10-13 05:29] LABS: CALCIUM-PROTEIN CORRECTED 6.6 MG/DL (8.5-10.1)
[2017-10-13 05:33] LABS: AUTOMATED NEUTROPHIL # 8.4 TH/MM3 (1.8-7.7); BASOPHIL % 0.3 % (0.0-2.0); EOSINOPHIL % 0.5 % (0.0-4.0); HEMATOCRIT 44.8 % (39.0-51.0); HEMOGLOBIN 15.5 GM/DL (13.0-17.0); LYMPH % 6.7 % (9.0-44.0); LYMPHOCYTE # 0.6 TH/MM3 (1.0-4.8); MEAN CELL VOLUME 101.9 FL (80.0-100.0); MEAN CORPUSCULAR HEMOGLOBIN 35.2 PG (27.0-34.0); MEAN CORPUSCULAR HGB CONC 34.6 % (32.0-36.0); MEAN PLATELET VOLUME 9.1 FL (7.0-11.0); MONOCYTE # 0.3 TH/MM3 (0-0.9); NEUT % 89.5 % (16.0-70.0); PLATELET COUNT 131 TH/MM3 (150-450); RED BLOOD COUNT 4.39 MIL/MM3 (4.50-5.90); RED CELL DISTRIBUTION WIDTH 13.5 % (11.6-17.2); WHITE BLOOD COUNT 9.4 TH/MM3 (4.0-11.0)
--- NOTE | 2017-10-13 05:36 | PD ---
HPI Chief Complaint: Respiratory Distress Time Seen by Provider: 03:43 Travel History International Travel<30 days: No Contact w/Intl Traveler<30days: No Traveled to known affect area: No History of Present Illness HPI 72-year-old male presents to the emergency department by EMS transport from home where he was identified to have shortness of breath after falling out of bed. Patient states he has chronic COPD and this morning was getting up out of bed without his walker to go to the bathroom and noticed that when he stood up that both of his legs are weak causing him to fall to the floor. Patient stated he sustained a superficial abrasion to his right knee but because he could not get up off the floor by himself to get into his bed by himself he called 911. Patient denies any head injury denies any chest pain at his condominium he was short of breath but denies shortness of breath at this time denies any pleuritic pain has not coughed up any blood or phlegm and denies any recent febrile illness. Patient denies currently taking any antibiotic. According to paralegal specialist report patient was markedly short of breath and required 3 updraft treatments for marked expiratory wheezing. Patient also received a dose of Solu-Medrol. Patient had no nausea no vomiting no abdominal pain no back pain and denies any lower extremity pain at this time. Patient was identified by paramedics to have right lower extremity swelling and left lower extremity has no swelling. Patient also noted to have superficial abrasion to the right knee. Patient has been admitted in the past year for renal insufficiency service/sepsis and pneumonia as well as exacerbation of COPD. Patient denies any change in his medications. Since primary is Dr. Vallejo. [facility] Past Medical History Narrative Medical Renal cancer hypertension COPD pneumonia renal insufficiency right partial nephrectomy herniorrhaphy tonsillectomy tobaccoism Hx Anticoagulant Therapy: No Asthma: No Autoimmune Disease: No Blood Disorders: No Heart Rhythm Problems: No Cancer: Yes (RIGHT KIDNEY, 2001) Cardiovascular Problems: Yes High Cholesterol: No Chemotherapy: No Chest Pain: No Congestive Heart Failure: No COPD: Yes Cerebrovascular Accident: No Coronary Artery Disease: No Diabetes: No Endocrine: No Gastrointestinal Disorders: Yes GERD: No Genitourinary: Yes (BPH) Hiatal Hernia: Yes Hypertension: Yes Immune Disorder: No Implanted Vascular Access Dvce: Yes Kidney Stones: Yes Musculoskeletal: Yes (PERIPHERAL NEUROPATHY ) Neurologic: No Psychiatric: No Reproductive: No Respiratory: Yes (COPD) Integumentary: Yes (skin tags) Immunizations Current: Yes Myocardial Infarction: No Radiation Therapy: No Renal Failure: No Sleep Apnea: No Ulcer: No Tetanus Vaccination: > 5 Years Influenza Vaccination: Yes PNEUMOCCOCAL Vaccine (Year): 1 Past Surgical History Abdominal Surgery: Yes (LT ING HERNIA REPAIR) Body Medical Devices: SCREWS TO RIGHT LEG Cardiac Surgery: No Ear Surgery: No Endocrine Surgery: No Eye Surgery: No Genitourinary Surgery: Yes (RT PARTIAL NEPHRECTOMY) Gynecologic Surgery: No Hysterectomy: No Neurologic Surgery: No Oral Surgery: No Thoracic Surgery: No Tonsillectomy: Yes Other Surgery: Yes (RIGHT PARTIAL NEPHRECTOMY 1999,INGUINAL HERNIA 1962, TONSILLECTOMY) Social History Alcohol Use: Yes (4 MARTINIS DAILY) Tobacco Use: Yes (2 PPD) Substance Use: No Allergies-Medications (Allergen,Severity, Reaction): Coded Allergies: No Known Allergies (Verified , 08/28/16) Reported Meds & Prescriptions Reported Meds & Active Scripts Active Senna Plus 8.6-50 mg (Sennosides-Docusate Sodium) 1 Tab Tab 1 Tab PO BID Lisinopril 5 Mg Tab 5 Mg PO DAILY Ventolin Hfa 18 GM Inh (Albuterol Sulfate) 90 Mcg/Act Aer 2 Puff INH Q6HR Norvasc (Amlodipine Besylate) 10 Mg Tab 10 Mg PO DAILY Metoprolol Tartrate 25 Mg Tab 12.5 Mg PO BID Reported Trazodone (Trazodone HCl) 100 Mg Tablet 200 Mg PO HS Breo Ellipta Inh (Fluticasone/Vilanterol) 200-25 Mcg/Act Inh 1 Puff INH DAILY Use daily at the same time. Finasteride 5 Mg Tab 5 Mg PO DAILY Do not crush. Doxazosin (Doxazosin Mesylate) 8 Mg Tab 8 Mg PO DAILY Tamsulosin (Tamsulosin HCl) 0.4 Mg Cap 0.4 Mg PO HS Review of Systems Except as stated in HPI: all other systems reviewed are Neg General / Constitutional: No: Fever, Chills HENT: No: Congestion Cardiovascular: No: Chest Pain or Discomfort Respiratory: Positive: Shortness of Breath, Wheezing, No: Pleuritic Pain Gastrointestinal: No: Vomiting, Abdominal Pain Genitourinary: No: Flank Pain Musculoskeletal: Positive: Edema (Right lower extremity), No: Pain Skin: No Rash Neurologic: Positive: Weakness, No: Dizziness, Syncope, Focal Abnormalities, Coordination Problem, Headache, Change in Mentation Psychiatric: No: Anxiety Hematologic/Lymphatic: No: Easy Bruising Physical Exam Narrative GENERAL: Well-developed well-nourished elderly male in no acute distress no respiratory distress resting supine O2 saturation 96% on 4 L per nasal cannula SKIN: Warm and dry. HEAD: Normocephalic. EYES: No scleral icterus. No injection or drainage. NECK: Supple, trachea midline. No JVD or lymphadenopathy. CARDIOVASCULAR: Regular rate and rhythm without murmurs, gallops, or rubs. RESPIRATORY: Breath sounds equal bilaterally. No accessory muscle use. GASTROINTESTINAL: Abdomen soft, non-tender, nondistended. MUSCULOSKELETAL: No cyanosis, right lower extremity with pitting edema superficial abrasion to the right knee BACK: Nontender without obvious deformity. No CVA tenderness. Data Data Last Documented VS Vital Signs Date Time Temp Pulse Resp B/P (MAP) Pulse Ox O2 Delivery O2 Flow Rate FiO2 10/13/17 04:12 22 90 Nasal Cannula 4.00 10/13/17 03:39 98.2 67 118/56 (76) Orders Orders Complete Blood Count With Diff (10/13/17 03:43) Comprehensive Metabolic Panel (10/13/17 03:43) B-Type Natriuretic Peptide (10/13/17 03:43) Act Partial Throm Time (Ptt) (10/13/17 03:43) Prothrombin Time / Inr (Pt) (10/13/17 03:43) Magnesium (Mg) (10/13/17 03:43) Ckmb (Isoenzyme) Profile (10/13/17 03:43) Troponin I (10/13/17 03:43) Iv Access Insert/Monitor (10/13/17 03:43) Electrocardiogram (10/13/17 03:43) Ecg Monitoring (10/13/17 03:43) Oximetry (10/13/17 03:43) Oxygen Administration (10/13/17 03:43) Chest, Single Ap (10/13/17 03:43) Sodium Chloride 0.9% Flush (Ns Flush) (10/13/17 03:45) Us Leg Venous Doppler (10/13/17 ) Ankle, Complete ([id number]) (10/13/17 ) Wound Care (10/13/17 03:43) Blood Culture (10/13/17 04:49) Lactic Acid (10/13/17 04:49) Potassium Chloride (Kcl) (10/13/17 05:00) Potassium Chlor 10 Meq Premix (Kcl 10 Me (10/13/17 05:00) Magnesium Sulfate 1 Gm Premix (Magnesium (10/13/17 05:00) Ceftriaxone Inj (Rocephin Inj) (10/13/17 05:00) Azithromycin Inj (Zithromax Inj) (10/13/17 05:00) Albuterol-Ipratropium Neb (Duoneb Neb) (10/13/17 05:00) Blood Gas Venous Ph (10/13/17 04:52) D5-1/2 Ns + Kcl 40 Meq Inj (D5-1/2 Ns + (10/13/17 05:00) Basic Metabolic Panel (Bmp) (10/13/17 05:31) Calcium Gluconate Inj (Calcium Gluconate (10/13/17 05:45) Admit Order (Ed Use Only) (10/13/17 ) Sprayer Automatic Spray Machine / Telemetry [email or web address] (10/13/17 05:32) Activity Bed Rest (10/13/17 05:32) Notify Dr: Other (10/13/17 05:32) Labs Laboratory Tests Test 10/13/17 04:00 10/13/17 05:10 Blood Urea Nitrogen 13 MG/DL Creatinine 0.99 MG/DL Random Glucose 54 MG/DL Total Protein 3.5 GM/DL Albumin 1.8 GM/DL Calcium Level 5.1 MG/DL Magnesium Level 1.1 MG/DL Alkaline Phosphatase 30 U/L Aspartate Amino Transf (AST/SGOT) 13 U/L Alanine Aminotransferase (ALT/SGPT) 12 U/L Total Bilirubin 0.3 MG/DL Sodium Level 150 MEQ/L Potassium Level 2.8 MEQ/L Chloride Level 124 MEQ/L Carbon Dioxide Level 12.7 MEQ/L Anion Gap 13 MEQ/L Estimat Glomerular Filtration Rate 74 ML/MIN Protein Corrected Calcium 6.6 MG/DL Total Creatine Kinase 39 U/L Troponin I LESS THAN 0.02 NG/ML B-Type Natriuretic Peptide 83 PG/ML White Blood Count 9.4 TH/MM3 Red Blood Count 4.39 MIL/MM3 Hemoglobin 15.5 GM/DL Hematocrit 44.8 % Mean Corpuscular Volume 101.9 FL Mean Corpuscular Hemoglobin 35.2 PG Mean Corpuscular Hemoglobin Concent 34.6 % Red Cell Distribution Width 13.5 % Platelet Count 131 TH/MM3 Mean Platelet Volume 9.1 FL Neutrophils (%) (Auto) 89.5 % Lymphocytes (%) (Auto) 6.7 % Monocytes (%) (Auto) 3.0 % Eosinophils (%) (Auto) 0.5 % Basophils (%) (Auto) 0.3 % Neutrophils # (Auto) 8.4 TH/MM3 Lymphocytes # (Auto) 0.6 TH/MM3 Monocytes # (Auto) 0.3 TH/MM3 Eosinophils # (Auto) 0.0 TH/MM3 Basophils # (Auto) 0.0 TH/MM3 CBC Comment DIFF FINAL Differential Comment Prothrombin Time 9.2 SEC Prothromb Time International Ratio 0.9 RATIO Activated Partial Thromboplast Time 27.1 SEC Lactic Acid Level 4.4 mmol/L MDM Medical Decision Making Medical Screen Exam Complete: Yes Emergency Medical Condition: Yes Medical Record Reviewed: Yes Interpretation(s) US RLE: negative dvt cxr: LLL infiltrate/scarring right ankle: nabi EKG normal sinus rhythm first degree AV block no acute ST elevation injury pattern or ectopy noted much artifact is present at baseline Last Impressions Chest X-Ray 10/13/17 0343 Signed Impressions: Service Date/Time: Friday, October 13, 2017 03:55 - CONCLUSION: 1. Persistent left lung base airspace disease, likely atelectasis/scarring. 2. No acute abnormality or significant interval change. Pedro Bunn MD Lower Extremity Ultrasound 10/13/17 0000 Signed Impressions: Service Date/Time: Friday, October 13, 2017 04:08 - CONCLUSION: 1. No sonographic evidence for right lower extremity DVT. Pedro Bunn MD Ankle X-Ray 10/13/17 0000 Signed Impressions: Service Date/Time: Friday, October 13, 2017 03:58 - CONCLUSION: 1. Diffuse soft tissue swelling without radiopaque foreign bodies, acute fracture or bony erosion. Pedro Bunn MD CBC & BMP Diagram 10/13/17 04:00 Total Protein 3.5 L, Albumin 1.8 L, Calcium Level 5.1 *L, Magnesium Level 1.1 L , Alkaline Phosphatase 30 L, Aspartate Amino Transf (AST/SGOT) 13 L, Alanine Aminotransferase (ALT/SGPT) 12, Total Bilirubin 0.3 10/13/17 05:10 Vital Signs Date Time Temp Pulse Resp B/P (MAP) Pulse Ox O2 Delivery O2 Flow Rate FiO2 10/13/17 04:12 22 90 Nasal Cannula 4.00 10/13/17 04:11 20 10/13/17 03:57 96 Nasal Cannula 4.00 10/13/17 03:39 98.2 67 20 118/56 (76) 96 Lactic acid: 4.4, elevated Differential Diagnosis Dyspnea, exacerbation COPD, CHF, DVT, PE, ACS, pneumonia, [place], arrhythmia, anemia , electrolyte disturbance, metabolic disorder Narrative Course Patient given DuoNeb updraft upon time arrival to the emergency department; IV access obtained specimens collected and sent for resulting CBC with automated differential total white cell count is in normal range mild thrombocytopenia and left shift with 89% neutrophils by automated differential; metabolic panel marked electrolyte disturbance with hypernatremia hypokalemia hyperchloremia normal range BUN and creatinine with hypo-glycemia marked hypocalcemia and hypomagnesemia; bicarb is depressed without anion gap. Troponin I, CK, and BMP are not elevated. Chest x-ray shows left lower lobe infiltrate and scarring. Blood cultures and lactic acid ordered on patient. Ultrasound of right lower extremity is negative for DVT; x-ray right ankle negative for bony abnormality or foreign body also no report of sq gas. Patient resting comfortably with marked electrolyte disturbance and metabolic disorder; patient primary care provider contacted and patient will be admitted by Dr. Page At 6:20 AM patient was identified to have lactic acidosis, 4.4 Stat redraw a basic metabolic panel identified to have essentially normal lab values for sodium potassium chloride mildly decreased bicarb normal renal function and glucose; therefore D5 half-normal with potassium infusion stopped magnesium placed on hold and stat redraw of magnesium performed patient's case has been discussed again with his primary with plan to admit to ICU with consult to centerless grinder set up operator until correction of lactic acidosis and reassessment of electrolyte status. Critical Care Narrative Aggregate critical care time was 35 minutes. Time to perform other separately billable procedures was not included in the critical care time. My time did not include minutes spent treating any other patients simultaneously or on activities that did not directly contribute to the patient's treatment. The services I provided to this patient were to treat and/or prevent clinically significant deterioration that could result in: Arrhythmia, respiratory failure , I provided critical care services requiring my management, as noted below: Chart data review, documentation time, medication orders and management, vital sign assessments/reviewing monitor data, ordering and reviewing lab tests, ordering and interpreting/reviewing x-rays and diagnostic studies, care of the patient and discussion of the patient with the admitting physicians. Physician Communication Physician Communication discussed with Dr Sidhu for admission; discussed with centerless grinder set up operator Diagnosis Primary Impression: COPD exacerbation Additional Impressions: Disorder of electrolytes Lactic acidosis Admitting Information Admitting Physician Requests: Admit Kassidy James MD Oct 13, 2017 05:36
[2017-10-13] MEDS ORDERED: CALCIUM GLUCONATE INJ 1 GM in DEXTROSE 5% IN WATER 100ML INJ 100 ML IV ONE ×2 (05:45)
[2017-10-13 05:54] LABS: INTERNATIONAL NORMALIZED RATIO 0.9 RATIO; PROTHROMBIN TIME - PATIENT 9.2 SEC (9.8-11.6)
[2017-10-13] MEDS ORDERED: D5-1/2 NS + KCL 20 MEQ INJ 1,000 ML IV SCH (05:55)
[2017-10-13] MEDS ORDERED: SODIUM CHLORIDE 0.9% FLUSH 10 ML FLUSH IV FLUSH PRN (06:00)
[2017-10-13] MEDS ORDERED: NALOXONE HCL 0.4 MG/ML AMP IV PUSH PRN (06:00)
[2017-10-13] MEDS ORDERED: PILL SPLITTER OTHER PRN (06:15)
[2017-10-13] MEDS: HEPARIN SODIUM - SQ 10,000 UNITS/ML VIAL SQ SCH ×2 (06:26→16:54)
[2017-10-13 06:31] LABS: BICARBONATE 20.6 MEQ/L (21.0-32.0); CALCIUM 8.7 MG/DL (8.5-10.1); CREATININE 1.82 MG/DL (0.60-1.30)
[2017-10-13] MEDS: LISINOPRIL 5 MG TAB PO SCH (09:00)
[2017-10-13] MEDS ORDERED: POTASSIUM CHLORIDE 10 MEQ CONTROLLED RELEASE TAB PO SCH (09:00)
[2017-10-13] MEDS: DOCUSATE SODIUM 50 MG/SENNA 8.6 MG TAB PO SCH ×2 (09:25→20:38)
[2017-10-13] MEDS: CALCIUM CARBONATE 1.25 GM (CA 500 MG) TAB PO SCH ×2 (09:25→20:37)
[2017-10-13] MEDS: FINASTERIDE 5 MG TAB PO SCH (09:25)
--- NOTE | 2017-10-13 09:25 | HHI.HP ---
History of Present Illness Service Family medicine Primary Care Physician Tez Sidhu, DO Admission Diagnosis exac copd; LLL infiltrate; metabolic disturbance Diagnoses: (1) Disorder of electrolytes History of Present Illness 72-year-old male presents to the emergency department by EMS transport from home where he got up to go to BR ad fell sustaining right knee abrasion. He had SOB r/t his chronic COPD. Patient required 3 breathing treatment for severe expiratory wheezing by EMS. US done in ER for RLE edema that was negative for DVT. Patient has electrolyte imbalance with potassium 2.8, sodium 150 and calcium 5.1. His lactic acid 4.4. Review of Systems Constitutional: COMPLAINS OF: Fever, Dizziness Respiratory: COMPLAINS OF: Cough, Shortness of breath Psychiatric: COMPLAINS OF: Confusion, Agitation Past Family Social History Allergies: Coded Allergies: No Known Allergies (Verified , 08/28/16) Past Medical History COPD and smokes 1-2 pks per day peripheral neuropathy BPH HTN Hx of cancer Past Surgical History Partial right nephrectomy Hernia repair right leg screws tonsillectomy Reported Medications Lisinopril Ventolin Norvasc Lopressor Breo Doxazosin Active Ordered Medications Current Medications Medications (Trade) Dose Ordered Sig/Nayeli Route Start Time Stop Time Status Last Admin (Proair Hfa Inh) 2 puff Q6HR INH 10/13/17 06:00 10/13/17 16:58 (Norvasc) 10 mg DAILY PO 10/13/17 09:00 10/13/17 09:27 (Cardura) 8 mg DAILY PO 10/13/17 09:00 10/13/17 09:27 (Proscar) 5 mg DAILY PO 10/13/17 09:00 10/13/17 09:25 (Breo Ellipta 200-25 Inh) 1 puff DAILY INH 10/13/17 09:00 10/13/17 16:48 (Prinivil) 5 mg DAILY PO 10/13/17 09:00 (Lopressor) 12.5 mg BID PO 10/13/17 09:00 10/13/17 09:28 (Elvie-Colace) 1 tab BID PO 10/13/17 09:00 10/13/17 09:25 (Flomax) 0.4 mg HS PO 10/13/17 21:00 (Desyrel) 100 mg HS PO 10/13/17 21:00 (NS Flush) 2 ml UNSCH PRN IV FLUSH 10/13/17 06:00 (NS Flush) 2 ml BID IV FLUSH 10/13/17 09:00 10/13/17 11:48 (Heparin Inj) 5,000 units Q12H SQ 10/13/17 06:00 10/13/17 16:54 (Narcan Inj) 0.4 mg UNSCH PRN IV PUSH 10/13/17 06:00 (Oscal) 500 mg Q12HR PO 10/13/17 09:00 10/13/17 09:25 (Mag-Ox) 400 mg Q12HR PO 10/13/17 09:00 10/13/17 09:28 (Pill Splitter) 1 ea UNSCH PRN OTHER 10/13/17 06:15 (SoluMEDROL INJ) 40 mg Q8H IV PUSH 10/13/17 11:00 10/13/17 11:47 (Duoneb Neb) 1 ampule Q4HR NEB NEB 10/13/17 12:00 10/13/17 16:11 (Duoneb Neb) 1 ampule Q2HR NEB PRN NEB 10/13/17 09:30 Sodium Chloride 1,000 ml @ 100 mls/hr Q10H IV 10/13/17 15:00 10/13/17 15:00 Social History Current smoker 1-2 packs day x 60 years Physical Exam Vital Signs Vital Signs Date Time Temp Pulse Resp B/P (MAP) Pulse Ox O2 Delivery O2 Flow Rate FiO2 10/13/17 07:00 88 18 170/60 (96) 96 Nasal Cannula 4.00 10/13/17 06:54 98.0 96 20 142/65 (90) 96 Nasal Cannula 4.00 10/13/17 06:31 92 Nasal Cannula 4.00 10/13/17 04:12 22 90 Nasal Cannula 4.00 10/13/17 04:11 20 10/13/17 03:57 96 Nasal Cannula 4.00 10/13/17 03:39 98.2 67 20 118/56 (76) 96 Physical Exam GENERAL: This is a well-nourished, elderly male resting in bed on 4 liters SKIN: No rashes, ecchymoses or lesions. Cool and dry. HEAD: Atraumatic. Normocephalic. No temporal or scalp tenderness. EYES: Pupils equal round and reactive. Extraocular motions intact. No scleral icterus. No injection or drainage. ENT: Nose without bleeding, purulent drainage or septal hematoma. Throat without erythema, tonsillar hypertrophy or exudate. Uvula midline. Airway patent. NECK: Trachea midline. No JVD or lymphadenopathy. Supple, nontender, no meningeal signs. CARDIOVASCULAR: Regular rate and rhythm without murmurs, gallops, or rubs. RESPIRATORY: Breath sounds equal bilaterally expiratory wheezes GASTROINTESTINAL: Abdomen soft, non-tender, nondistended. No hepato-splenomegaly , or palpable masses. No guarding. MUSCULOSKELETAL: Right knee abrasion with pitting edema. NEUROLOGICAL: Awake and alert, Normal speech. Laboratory Laboratory Tests Test 10/13/17 04:00 10/13/17 05:10 10/13/17 05:52 10/13/17 06:00 Blood Urea Nitrogen 13 20 Creatinine 0.99 1.82 Random Glucose 54 91 Total Protein 3.5 Albumin 1.8 Calcium Level 5.1 8.7 Magnesium Level 1.1 Alkaline Phosphatase 30 Aspartate Amino Transf (AST/SGOT) 13 Alanine Aminotransferase (ALT/SGPT) 12 Total Bilirubin 0.3 Sodium Level 150 142 Potassium Level 2.8 4.4 Chloride Level 124 109 Carbon Dioxide Level 12.7 20.6 Anion Gap 13 12 Estimat Glomerular Filtration Rate 74 37 Protein Corrected Calcium 6.6 Total Creatine Kinase 39 Troponin I LESS THAN 0.02 B-Type Natriuretic Peptide 83 White Blood Count 9.4 Red Blood Count 4.39 Hemoglobin 15.5 Hematocrit 44.8 Mean Corpuscular Volume 101.9 Mean Corpuscular Hemoglobin 35.2 Mean Corpuscular Hemoglobin Concent 34.6 Red Cell Distribution Width 13.5 Platelet Count 131 Mean Platelet Volume 9.1 Neutrophils (%) (Auto) 89.5 Lymphocytes (%) (Auto) 6.7 Monocytes (%) (Auto) 3.0 Eosinophils (%) (Auto) 0.5 Basophils (%) (Auto) 0.3 Neutrophils # (Auto) 8.4 Lymphocytes # (Auto) 0.6 Monocytes # (Auto) 0.3 Eosinophils # (Auto) 0.0 Basophils # (Auto) 0.0 CBC Comment DIFF FINAL Differential Comment Prothrombin Time 9.2 Prothromb Time International Ratio 0.9 Activated Partial Thromboplast Time 27.1 Lactic Acid Level 4.4 Venous Blood pH 7.31 Date/Time Source Procedure Growth Status 10/13/17 05:10 Blood Peripheral Aerobic Blood Culture Pending Received 10/13/17 05:10 Blood Peripheral Anaerobic Blood Culture Pending Received Result Diagram: 10/13/17 0510 10/13/17 0552 Imaging Last 24 hours Impressions Chest X-Ray 10/13/17 0343 Signed Impressions: Service Date/Time: Friday, October 13, 2017 03:55 - CONCLUSION: 1. Persistent left lung base airspace disease, likely atelectasis/scarring. 2. No acute abnormality or significant interval change. Pedro Bunn MD Renal Ultrasound 10/13/17 0000 Signed Impressions: Service Date/Time: Friday, October 13, 2017 12:59 - CONCLUSION: 1. Kidneys are mildly echogenic which can be seen with early medical renal disease. 2. Possible nonobstructing calculi in the right kidney. 3. Left sided renal cysts. Allen Alexander MD Lower Extremity Ultrasound 10/13/17 0000 Signed Impressions: Service Date/Time: Friday, October 13, 2017 04:08 - CONCLUSION: 1. No sonographic evidence for right lower extremity DVT. Pedro Bunn MD Ankle X-Ray 10/13/17 0000 Signed Impressions: Service Date/Time: Friday, October 13, 2017 03:58 - CONCLUSION: 1. Diffuse soft tissue swelling without radiopaque foreign bodies, acute fracture or bony erosion. MD Amaya Em VTE Risk Assessment Caprini VTE Risk Assessment: Mod/High Risk (score >= 2) Caprini Risk Assessment Model Point Value = 1 Point Value = 2 Point Value = 3 Point Value = 5 Age 41-60 Minor surgery BMI > 25 kg/m2 Swollen legs Varicose veins or History of unexplained or recurrent spontaneous Oral contraceptives or hormone replacement Sepsis (< 1 month) Serious lung disease, including pneumonia (< 1 month) Abnormal pulmonary function Acute myocardial infarction Congestive heart failure (< 1 month) History of inflammatory bowel disease Medical patient at bed rest Age 61-74 Arthroscopic surgery Major open surgery (> 45 min) Laparoscopic surgery (> 45 min) Malignancy Confined to bed (> 72 hours) Immobilizing plaster cast Central venous access Age >= 75 History of VTE Family history of VTE Factor V Leiden Prothrombin [id number] Lupus anticoagulant Anticardiolipin antibodies Elevated serum homocysteine Heparin-induced thrombocytopenia Other congenital or acquired thrombophilia Stroke (< 1 month) Elective arthroplasty Hip, pelvis, or leg fracture Acute spinal cord injury (< 1 month) Prophylaxis Regimen Total Risk Factor Score Risk Level Prophylaxis Regimen 0-1 Low Early ambulation 2 Moderate Order ONE of the following: *Sequential Compression Device (SCD) *Heparin 5000 units SQ BID 3-4 Higher Order ONE of the following medications: *Heparin 5000 units SQ TID *Enoxaparin/Lovenox 40 mg SQ daily (WT < 150 kg, CrCl > 30 mL/min) *Enoxaparin/Lovenox 30 mg SQ daily (WT < 150 kg, CrCl > 10-29 mL/min) *Enoxaparin/Lovenox 30 mg SQ BID (WT < 150 kg, CrCl > 30 mL/min) AND/OR *Sequential Compression Device (SCD) 5 or more Highest Order ONE of the following medications: *Heparin 5000 units SQ TID (Preferred with Epidurals) *Enoxaparin/Lovenox 40 mg SQ daily (WT < 150 kg, CrCl > 30 mL/min) *Enoxaparin/Lovenox 30 mg SQ daily (WT < 150 kg, CrCl > 10-29 mL/min) *Enoxaparin/Lovenox 30 mg SQ BID (WT < 150 kg, CrCl > 30 mL/min) AND *Sequential Compression Device (SCD) Assessment and Plan Problem List: (1) COPD exacerbation ICD Codes: J44.1 - COPD exacerbation Status: Acute Plan: Pulmonary consult, Keep sats >90. Trevor nebs, Solu Medrol. (2) Disorder of electrolytes ICD Codes: E87.8 - Other disorders of electrolyte and fluid balance, not elsewhere classified Status: Acute Plan: Renal following, electrolytes replaced. Monitor BMP (3) Chronic renal disease ICD Codes: N18.9 - Chronic kidney disease Status: Acute Plan: History of nephrectomy r/t carcinoma. Renal consult. Avoid nephro toxins , Monitor BMP (4) Hypertension ICD Codes: I10 - Essential (primary) hypertension Status: Acute Plan: Cont home medications (5) Weakness ICD Codes: R53.1 - Weakness Status: Acute Plan: PT eval and treat Discharge Planning Home/ SNF at /c. Sulma Macias Oct 13, 2017 09:25
--- NOTE | 2017-10-13 09:26 | PD.CONS ---
HPI Service Nephrology Consult Requested By Dr. Sidhu Reason for Consult BERE Electrolyte imbalance Hypokalemia Primary Care Physician Tez Sidhu, DO History of Present Illness Patient is a 72-year-old male presents to the emergency department by EMS transport from home s/p fall after getting out of bed and being to weak to get up. Patient states he has chronic COPD and this morning was getting up out of bed without his walker to go to the bathroom and noticed that when he stood up that both of his legs are weak causing him to fall to the floor. Denies any fevers, CP, nausea, vomiting or diarrhea. 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 Nephrology was consulted of hypocalcemia, electrolyte imbalance, and CKD, Was found to have a calcium level of 6.6, potassium level of 2.8, creatinine of 1.74 and GFR of 37 ml/min. Patient drinks 12 oz of 94 proof GIN daily. (Raysa Bhakta) Review of Systems Constitutional: COMPLAINS OF: Fatigue Respiratory: COMPLAINS OF: Cough, Shortness of breath Cardiovascular: COMPLAINS OF: Lower Extremity Edema, DENIES: Chest pain Gastrointestinal: DENIES: Abdominal pain, Diarrhea, Nausea, Vomiting ( Raysa Bhakta) Past Family Social History Allergies: Coded Allergies: No Known Allergies (Verified , 08/28/16) Past Medical History COPD and smokes 1-2 pks per day peripheral neuropathy BPH HTN Hx of cancer Past Surgical History Partial right nephrectomy Hernia repair right leg screws tonsillectomy Active Ordered Medications Current Medications Medications (Trade) Dose Ordered Sig/Nayeli Route Start Time Stop Time Status Last Admin (Proair Hfa Inh) 2 puff Q6HR INH 10/13/17 06:00 (Norvasc) 10 mg DAILY PO 10/13/17 09:00 (Cardura) 8 mg DAILY PO 10/13/17 09:00 (Proscar) 5 mg DAILY PO 10/13/17 09:00 (Breo Ellipta 200-25 Inh) 1 puff DAILY INH 10/13/17 09:00 (Prinivil) 5 mg DAILY PO 10/13/17 09:00 (Lopressor) 12.5 mg BID PO 10/13/17 09:00 (Elvie-Colace) 1 tab BID PO 10/13/17 09:00 (Flomax) 0.4 mg HS PO 10/13/17 21:00 (Desyrel) 100 mg HS PO 10/13/17 21:00 Potassium Chloride/Dextrose/ Sod Cl 1,000 ml @ 100 mls/hr Q10H IV 10/13/17 05:55 (NS Flush) 2 ml UNSCH PRN IV FLUSH 10/13/17 06:00 (NS Flush) 2 ml BID IV FLUSH 10/13/17 09:00 (Heparin Inj) 5,000 units Q12H SQ 10/13/17 06:00 10/13/17 06:26 (Narcan Inj) 0.4 mg UNSCH PRN IV PUSH 10/13/17 06:00 (Oscal) 500 mg Q12HR PO 10/13/17 09:00 (Mag-Ox) 400 mg Q12HR PO 10/13/17 09:00 (KCl) 30 meq Q12HR PO 10/13/17 09:00 (Pill Splitter) 1 ea UNSCH PRN OTHER 10/13/17 06:15 Family History unknown Social History smokes 1-2 pks per day ETOH 12 ox 94 proof GIN daily Lives alone (Raysa Bhakta) Physical Exam Vital Signs Vital Signs Date Time Temp Pulse Resp B/P (MAP) Pulse Ox O2 Delivery O2 Flow Rate FiO2 10/13/17 07:00 88 18 170/60 (96) 96 Nasal Cannula 4.00 10/13/17 06:54 98.0 96 20 142/65 (90) 96 Nasal Cannula 4.00 10/13/17 06:31 92 Nasal Cannula 4.00 10/13/17 04:12 22 90 Nasal Cannula 4.00 10/13/17 04:11 20 10/13/17 03:57 96 Nasal Cannula 4.00 10/13/17 03:39 98.2 67 20 118/56 (76) 96 Physical Exam GENERAL: Alert and oriented. Disheveled SKIN: Warm and dry. Abrasion on right leg HEAD: Normocephalic. EYES: No scleral icterus. No injection or drainage. NECK: Supple, trachea midline. No JVD or lymphadenopathy. CARDIOVASCULAR: Regular rate and rhythm without murmurs, gallops, or rubs. RESPIRATORY: Breath sounds equal bilaterally. No accessory muscle use. GASTROINTESTINAL: Abdomen soft, non-tender, nondistended. MUSCULOSKELETAL: No cyanosis. Right leg swelling BACK: Nontender without obvious deformity. No CVA tenderness. Laboratory Laboratory Tests Test 10/13/17 04:00 10/13/17 05:10 10/13/17 05:52 10/13/17 06:00 Blood Urea Nitrogen 13 20 Creatinine 0.99 1.82 Random Glucose 54 91 Total Protein 3.5 Albumin 1.8 Calcium Level 5.1 8.7 Magnesium Level 1.1 Alkaline Phosphatase 30 Aspartate Amino Transf (AST/SGOT) 13 Alanine Aminotransferase (ALT/SGPT) 12 Total Bilirubin 0.3 Sodium Level 150 142 Potassium Level 2.8 4.4 Chloride Level 124 109 Carbon Dioxide Level 12.7 20.6 Anion Gap 13 12 Estimat Glomerular Filtration Rate 74 37 Protein Corrected Calcium 6.6 Total Creatine Kinase 39 Troponin I LESS THAN 0.02 B-Type Natriuretic Peptide 83 White Blood Count 9.4 Red Blood Count 4.39 Hemoglobin 15.5 Hematocrit 44.8 Mean Corpuscular Volume 101.9 Mean Corpuscular Hemoglobin 35.2 Mean Corpuscular Hemoglobin Concent 34.6 Red Cell Distribution Width 13.5 Platelet Count 131 Mean Platelet Volume 9.1 Neutrophils (%) (Auto) 89.5 Lymphocytes (%) (Auto) 6.7 Monocytes (%) (Auto) 3.0 Eosinophils (%) (Auto) 0.5 Basophils (%) (Auto) 0.3 Neutrophils # (Auto) 8.4 Lymphocytes # (Auto) 0.6 Monocytes # (Auto) 0.3 Eosinophils # (Auto) 0.0 Basophils # (Auto) 0.0 CBC Comment DIFF FINAL Differential Comment Prothrombin Time 9.2 Prothromb Time International Ratio 0.9 Activated Partial Thromboplast Time 27.1 Lactic Acid Level 4.4 Venous Blood pH 7.31 Date/Time Source Procedure Growth Status 10/13/17 05:10 Blood Peripheral Aerobic Blood Culture Pending Received 10/13/17 05:10 Blood Peripheral Anaerobic Blood Culture Pending Received (Raysa Bhakta) Result Diagram: 10/13/17 0510 10/13/17 0552 Imaging Last Impressions Chest X-Ray 10/13/17 0343 Signed Impressions: Service Date/Time: Friday, October 13, 2017 03:55 - CONCLUSION: 1. Persistent left lung base airspace disease, likely atelectasis/scarring. 2. No acute abnormality or significant interval change. Pedro Bunn MD Lower Extremity Ultrasound 10/13/17 0000 Signed Impressions: Service Date/Time: Friday, October 13, 2017 04:08 - CONCLUSION: 1. No sonographic evidence for right lower extremity DVT. Pedro Bunn MD Ankle X-Ray 10/13/17 0000 Signed Impressions: Service Date/Time: Friday, October 13, 2017 03:58 - CONCLUSION: 1. Diffuse soft tissue swelling without radiopaque foreign bodies, acute fracture or bony erosion. Pedro Bunn MD (Raysa Bhakta) Assessment and Plan Problem List: (1) Disorder of electrolytes ICD Codes: E87.8 - Other disorders of electrolyte and fluid balance, not elsewhere classified Status: Acute Plan: Calcium found to be at 6.6 and Potassium of 2.8 Hypocalcemia most likely form lactic acidosis. Patient has received replacement and now WNL Will order PTH, phosphorus, and vitamin d level (2) Chronic renal disease ICD Codes: N18.9 - Chronic kidney disease Status: Acute Plan: Patient with history of right partial nephrectomy for tumor. Creatinine is 1.82 and GFR 37 ml/min. This is most likely patients baseline. Most likely has CKD from HTN or renal vascular disease Plan Continue IVF's Renal US UA and C+S Will monitor labs and UOP (3) COPD exacerbation ICD Codes: J44.1 - COPD exacerbation Status: Acute (4) Lactic acidosis ICD Codes: E87.2 - Acidosis Status: Acute (5) Hypertension ICD Codes: I10 - Essential (primary) hypertension Status: Acute (6) Weakness ICD Codes: R53.1 - Weakness Status: Acute (Raysa Bhakta) Problem List: (1) Disorder of electrolytes ICD Codes: E87.8 - Other disorders of electrolyte and fluid balance, not elsewhere classified Status: Acute Plan: Calcium found to be at 6.6 and Potassium of 2.8 Hypocalcemia most likely form lactic acidosis. Patient has received replacement and now WNL Will order PTH, phosphorus, and vitamin d level (2) Chronic renal disease ICD Codes: N18.9 - Chronic kidney disease Status: Acute Plan: Patient with history of right partial nephrectomy for tumor. Creatinine is 1.82 and GFR 37 ml/min. This is most likely patients baseline. Most likely has CKD from HTN or renal vascular disease Plan Continue IVF's Renal US UA and C+S Will monitor labs and UOP Patient seen and examined, agree with above. Patient has BERE, possibly pre renal or ATN. Non Oliguric, renal U/S noted. Awaiting UA, lactic acidosis is improving. Continue IV Hydration. (3) COPD exacerbation ICD Codes: J44.1 - COPD exacerbation Status: Acute (4) Lactic acidosis ICD Codes: E87.2 - Acidosis Status: Acute (5) Hypertension ICD Codes: I10 - Essential (primary) hypertension Status: Acute (6) Weakness ICD Codes: R53.1 - Weakness Status: Acute (Roberto Benitez MD) Raysa Bhakta Oct 13, 2017 09:26 Roberto Benitez MD Oct 13, 2017 19:00
[2017-10-13] MEDS: DOXAZOSIN MESYLATE 4 MG TAB PO SCH (09:27)
[2017-10-13] MEDS: METOPROLOL TARTRATE 25 MG TAB PO SCH ×2 (09:28→20:37)
[2017-10-13] MEDS: MAGNESIUM OXIDE 400 MG TAB PO SCH ×2 (09:28→20:38)
[2017-10-13] MEDS ORDERED: SODIUM CHLOR 0.9% 1000 ML INJ 1,000 ML IV ONE (09:30)
[2017-10-13] MEDS: RESP: ALBUTEROL 2.5 MG/IPRATROPIUM 0.5 MG NEB (SCH) NEB ×4 (11:33→23:45)
[2017-10-13 11:44] LABS: AUTOMATED NEUTROPHIL # 7.4 TH/MM3 (1.8-7.7); BASOPHIL % 0.1 % (0.0-2.0); HEMATOCRIT 43.4 % (39.0-51.0); HEMOGLOBIN 14.9 GM/DL (13.0-17.0); LYMPH % 2.6 % (9.0-44.0); LYMPHOCYTE # 0.2 TH/MM3 (1.0-4.8); MEAN CELL VOLUME 101.3 FL (80.0-100.0); MEAN CORPUSCULAR HEMOGLOBIN 34.8 PG (27.0-34.0); MEAN CORPUSCULAR HGB CONC 34.3 % (32.0-36.0); MEAN PLATELET VOLUME 8.9 FL (7.0-11.0); MONO % 0.7 % (0.0-8.0); MONOCYTE # 0.1 TH/MM3 (0-0.9); NEUT % 96.6 % (16.0-70.0); PLATELET COUNT 117 TH/MM3 (150-450); RED BLOOD COUNT 4.28 MIL/MM3 (4.50-5.90); RED CELL DISTRIBUTION WIDTH 13.5 % (11.6-17.2); WHITE BLOOD COUNT 7.6 TH/MM3 (4.0-11.0)
[2017-10-13] MEDS: methylPREDNISolone SOD SUCC 40 MG/1 ML VIAL IV PUSH SCH ×2 (11:47→20:37)
[2017-10-13] MEDS: SODIUM CHLORIDE 0.9% FLUSH 10 ML FLUSH IV FLUSH SCH ×2 (11:48→20:40)
[2017-10-13] MEDS: ALBUTEROL SULFATE 90 MCG/ACT HFA 8 GM INHALER INH SCH ×3 (12:00→16:58)
[2017-10-13 12:05] LABS: BICARBONATE 21.5 MEQ/L (21.0-32.0); CALCIUM 8.5 MG/DL (8.5-10.1); CREATININE 1.74 MG/DL (0.60-1.30); MAGNESIUM 2.1 MG/DL (1.5-2.5); PHOSPHORUS 2.6 MG/DL (2.5-4.9)
--- NOTE | 2017-10-13 12:36 | MB ---
cc: Carolyn Zepeda MD, Alaa 0 MD Woodard,Vaibhav Barnes MD DATE OF CONSULT: 10/08/2017 PAST MEDICAL HISTORY The patient is a 72 year old male with past medical history of hypertension, COPD, Active tobacco use, renal CA. Who presented to [facility] ED, status post fall. He denies any chest pain, however, he reports some shortness of breath with wheezing, the patient denies any cough or any constitutional symptoms. He also reports swelling in his right lower extremity for the past two months. The patient denies any use of oxygen at home however, he uses Combivent and Breo. When paramedics arrived the patient was short of breath and he required three up draft treatments for expiratory wheezing, in addition, he received a dose of Xbsg-Thmvyz-Yvhlyv-Medrol. The patient denies any nausea, vomiting or any abdominal pain. His initial laboratory data showed acute kidney injury with a creatinine level of 1.82 and lactic acid level of 4.4. Chest x-ray in the ED showed persistent left lung airspace disease, likely atelectasis and scarring, otherwise no acute abnormality or any significant interval change. Ultrasound of the right lower extremity was preformed which showed no evidence of any DVT. The patient is being admitted to Dr. Barrett 's service. PAST MEDICAL HISTORY 1. Significant for hypertension. 2. COPD. 3. Renal cancer. 4. Chronic kidney disease. PAST SURGICAL HISTORY 1. Previous partial right nephrectomy. 2. Previous renal repair. 3. Previous tonsillectomy. FAMILY HISTORY Noncontributory to current/present illness. SOCIAL HISTORY Active smoker, where he smokes one to two packs per day and has been a smoker for sixty years. In addition. The patient drinks gin on a daily basis. ALLERGIES NO KNOWN DRUG ALLERGIES MEDICATIONS 1. Lisinopril 2. Ventolin 3. Norvasc 4. Lopressor 5. Breo 6. Doxazosin REVIEW OF SYSTEMS As per HPI, the rest of the review of systems is unremarkable. PHYSICAL EXAMINATION IN GENERAL: A 72 year old male lying in bed in no acute distress. On room air oxygen when seen. VITAL SIGNS: Afebrile with temperature of 97.0. Pulse of 93, Blood pressure 142/65. Saturation 94% on room air. HEENT: Atraumatic, normocephalic. Pupils equal, round and reactive to light and accommodation, Extraocular muscles are intact. Conjunctivae are pink, nonicteric sclera, oral mucosa within normal limits. NECK: Supple. No JVD, adenopathy, thyromegaly, the trachea is midline. CARDIOVASCULAR EXAMINATION: Regular rate and rhythm, normal S1, S2, no murmurs, rubs or gallops. PULMONARY EXAM: Bilateral equal entry with scattered wheezing. ABDOMEN: The abdomen is soft, nontender, no distention, positive bowel sounds. EXTREMITIES: No cyanosis, clubbing, swelling is noted in the right foot and right lower extremity with superficial abrasion to the right knee. NEUROLOGIC: No focal or sensory deficit. LABORATORY DATA Labs from 5:50 this morning; Sodium 142, potassium 4.4. Chloride 109, CO2 20, BUN 20, Creatinine 1.82. Glucose of 91. BNP 83, WBC 9.4, Hemoglobin 13.5, Hematocrit 44, Platelet count of 131. INR 0.9, PT 9.2, PTT 27. RADIOGRAPHIC STUDIES Ultrasound of the right lower extremity is negative for DVT. Chest x-ray showed persistent left lung airspace disease. Likely atelectasis/scarring. No acute abnormality or any interval significant change noted. IMPRESSION 1. Respiratory insufficiency. 2. COPD exacerbation. 3. Acute kidney injury. 4. Dehydration. 5. Lactic acidemia. 6. Hypertension. RECOMMENDATIONS 1. Monitor neuro-status closely, avoid any sedatives. 2. Oxygen PRN to maintain saturations above 92%. 3. Bronchodilators in the form of DuoNeb four times daily + two times daily PRN for shortness of breath. 4. We will place on IV steroids, in the form of Solu-Medrol 40 mg IV q 8. 5. Noninvasive pars pressure ventilation, as needed for respiratory distress. 6. Check ABG now. 7. Monitor heart rate and blood pressure closely and maintain MAP greater then 65 mmHg. 8. Repeat lactic acid level following IV hydration. We will give one to two liter bolus of normal saline. Place on maintenance fluids. 9. Monitor renal function I's & O's and avoid Nephrotoxins. IV fluids as stated above. Dr. Benitez from Nephrology service was consulted by the primary team. 10. Monitor for signs of infections which include fever and WBC 's. 11. Check sputum culture with gram stain. 12. Sliding scale insulin if needed for glycemic control. 13. GI and DVT prophylaxis. The patient is on Heparin subcutaneously. Addendum: Repeat lactic acid 1.1 from 4.4 patient appears hemodynamically stable. Continue with IV hydration. Pulmonary and nephrology services consulted by Dr. Sidhu. Will sign off. MD MARC Cordero/GERRI , 09:38 AM , 12:34 PM RAMÓN
[2017-10-13] MEDS: SODIUM CHLOR 0.9% 1000 ML INJ 1,000 ML IV SCH (15:00)
--- NOTE | 2017-10-13 15:10 | RADRPT ---
EXAM DATE/TIME: 10/13/2017 12:59 [facility] COMPARISON: No previous studies available for comparison. INDICATIONS : Abnormal labs MEDICAL HISTORY : Hypertension. COPD. Dyspnea. Hiatal hernia. Renal diease. Right kidney cancer. Kidney stones. SURGICAL HISTORY : Tonsillectomy. Hernia repair. Right partial nephrectomy. Right leg surgery with hardware. ENCOUNTER: Initial ACUITY: 1 day PAIN SCORE: 0/10 LOCATION: Bilateral flank MEASUREMENTS: RIGHT KIDNEY: 9.6 x 4.0 x 4.2 cm LEFT KIDNEY: 9.1 x 4.0 x 4.7 cm FINDINGS: RIGHT KIDNEY: Renal cortex is normal in thickness and increased echotexture. No hydronephrosis, stone, or mass. S mall echogenic foci are seen largest measuring 3 x 2 x 1 mm. LEFT KIDNEY: Renal cortex is normal in thickness and increased echotexture. No hydronephrosis, stone, or mass. S everal simple cysts measuring 17 x 16 x 14 mm upper pole and 13 x 11 x 11 mm in the lower pole. BLADDER: Within normal limits given the degree of distension. CONCLUSION: 1. Kidneys are mildly echogenic which can be seen with early medical renal disease. 2. Possible nonobstructing calculi in the right kidney. 3. Left sided renal cysts. Allen Alexander MD on October 13, 2017 at 15:07 Board Certified Radiologist. This report was verified electronically.
--- NOTE | 2017-10-13 15:39 | RADRPT ---
EXAM DATE/TIME: 10/13/2017 15:15 [facility] COMPARISON: CHEST SINGLE AP, October 13, 2017, 3:55. INDICATIONS : Evaluate for infiltrate. RADIATION DOSE: 8.15 CTDIvol (mGy) MEDICAL HISTORY : Chronic obstructive pulmonary disease. Renal calculi. Renal cell carcinoma. SURGICAL HISTORY : Nephrectomy, right. ENCOUNTER: Initial ACUITY: 1 day PAIN SCALE: 4/10 LOCATION: Left chest TECHNIQUE: Volumetric scanning of the chest was performed. Using automated exposure control and adjustment of t he mA and/or kV according to patient size, radiation dose was kept as low as reasonably achievable to obtain optimal diagnostic quality images. DICOM format image data is available electronically for r eview and comparison. Follow-up recommendations for detected pulmonary nodules are based at a minimum on nodule size and pa tient risk factors according to Fleischner Society Guidelines. FINDINGS: LUNGS: There is small areas of consolidation within the posterior left upper lobe and lingula as well as the left lower lobe anteriorly. Minimal scarring in the lower lobes. Mild emphysema. No concerning pulm onary nodule is visualized. PLEURAE: There is no pleural thickening or pleural effusion. MEDIASTINUM: The heart and great vessels demonstrate no acute abnormality. There is no mediastinal or hilar lymph adenopathy. Minimal coronary artery calcifications. AXILLAE: Within normal limits. No lymphadenopathy. MUSCULOSKELETAL: Within normal limits for patient age. MISCELLANEOUS: The visualized upper abdominal organs demonstrate no acute abnormality. CONCLUSION: 1. Left upper lobe and left lower lobe consolidation likely infiltrate. Recommend treatment and follo wup to resolution. 2. Mild emphysema without mass or concerning nodule. 3. Minimal coronary artery calcifications. Allen Alexander MD on October 13, 2017 at 15:36 Board Certified Radiologist. This report was verified electronically.
[2017-10-13] MEDS: FLUTICASONE 200 MCG/VILANTEROL 25 MCG INHALER INH SCH (16:48)
[2017-10-13] MEDS: TAMSULOSIN HCL 0.4 MG CAP PO SCH (20:38)
[2017-10-13] MEDS: traZODone HCL 100 MG TAB PO SCH (20:39)
[2017-10-13] MEDS: BUDESONIDE-FORMOTEROL 160/4.5 MCG INHALER INH SCH (20:40)
--- NOTE | 2017-10-13 21:17 | MB ---
cc: Vaibhav Tubbs MD DATE OF CONSULT: 10/13/2017 REASON FOR CONSULTATION: Respiratory failure and chronic obstructive pulmonary disease (COPD.) HISTORY OF PRESENT ILLNESS: This is a 72-year-old white male who has history of COPD, was admitted with history of a fall and contusion to his arm and severe wheezing with shortness of breath shortness of breath. The patient had no fevers or chills. States that he could not get off the floor and was brought to the ER by evac where he was given nebulized treatments and Solu-Medrol and subsequently placed on oxygen with 3 L and admitted to the ICU. The patient's lactic acid level was elevated. Chest x-ray showed left lung air space disease and atelectasis. Ultrasound of the right leg showed no DVT. The patient has now been started on IV antibiotic therapy on suspicion of pneumonia and exacerbation of COPD. PAST MEDICAL HISTORY: Includes COPD with emphysema and current exacerbation, history of hypertension, prior history of renal cancer with nephrectomy on the right. He has had tonsillectomy remotely and has had previous pneumonias. HABITS: The patient smoked half to 1 pack per day, has done so for over 60 years. Drinks alcohol on a daily basis. ALLERGIES: None listed. FAMILY HISTORY: Noncontributory. MEDICATIONS: List included Breo, Lopressor, Norvasc, Ventolin inhaler and lisinopril. SYSTEM REVIEW: Revealed patient has had cough, wheezing, epigastric distress. Denies any nausea, vomiting. Has had no urinary symptoms. No leg or calf muscle pain. He has had some joint pain to the extremities. Denies any skin lesions. He has trouble ambulating. He has had no depression or anxiety. PHYSICAL EXAMINATION: GENERAL: This elderly, averagely built, white male is alert, in no acute distress. Pallor noted. No cyanosis. There is mild peripheral edema. No lymphadenopathy. Skin turgor is diminished. VITAL SIGNS: Blood pressure 138/80, pulse is 100, respirations 22, temperature 97.2. HEENT: Head normocephalic. Pupils are reactive and equal. Tongue is moist. Throat is injected. Nasal mucosa erythematous. NECK: No bruits. Small venous distension while lying flat. Trachea midline. CHEST: Equal movements with coarse wheezes throughout both lung carrizales. Crackles over the left base. HEART: Sounds were regular S1 and S2 with no murmur, no S3. ABDOMEN: Soft, protuberant without masses. No organomegaly or tenderness. Bowel sounds are active. EXTREMITIES: Decreased peripheral pulses and minimal edema. Reflexes are 1+. The patient does move his extremities sluggishly. CRANIAL NERVES: Grossly intact. RECTAL: Exam is deferred. SKIN: Cool and dry. IMPRESSION: 1. Chronic obstructive pulmonary disease with acute exacerbation. 2. Dehydration and acute kidney injury. 3. History of hypertension. 4. Probable basilar pneumonia. PLAN: The patient has been started on antibiotic coverage including Rocephin 1 g daily and nebulized DuoNeb solution added q.i.d. and p.r.n. Continue with Solu-Medrol 40 mg IV every 8 hours, O2 at 3 L. We will get a sputum for culture and Gram stain and he will have a blood gas study done as well as a chest CT done to evaluate the lung infiltrate. Pulmonary function study will be ordered when he is clinically stable, and I will follow the case with you, Dr. Sidhu. Thank you for this consultation. VKevin Tubbs MD VJD/KELLY/martha , 07:36 PM , 08:56 PM
--- NOTE | 2017-10-13 22:09 | EKG ---
Date Performed: 10/13/2017 Time Performed: 04:15:23 PTAGE: 72 years EKG: Sinus rhythm WITH FIRST DEGREE AV BLOCK ABNORMAL ECG PREVIOUS TRACING : 02/24/2017 18.15 Since the prior tracing, there has been no significant leggett DOCTOR: Immanuel Zazueta Interpretating Date/Time 10/13/2017 22:07:23
[2017-10-14] VITALS (8 sets, daily range): BP systolic 151–176; BP diastolic 67–91; PULSE 75–97; RESP 19–26; TEMP 97.8–98.6; O2SAT 95–97
[2017-10-14] MEDS: ALBUTEROL SULFATE 90 MCG/ACT HFA 8 GM INHALER INH SCH ×4 (00:35→17:40)
[2017-10-14] MEDS: SODIUM CHLOR 0.9% 1000 ML INJ 1,000 ML IV SCH ×3 (00:35→21:42)
[2017-10-14] MEDS: RESP: ALBUTEROL 2.5 MG/IPRATROPIUM 0.5 MG NEB (SCH) NEB ×5 (03:38→19:37)
[2017-10-14] MEDS: methylPREDNISolone SOD SUCC 40 MG/1 ML VIAL IV PUSH SCH ×3 (04:07→17:40)
[2017-10-14] MEDS: cefTRIAXone INJ 1,000 MG in SODIUM CHLORIDE 0.9% INJ 100 ML IV SCH (04:08)
[2017-10-14 05:07] LABS: AUTOMATED NEUTROPHIL # 5.6 TH/MM3 (1.8-7.7); HEMATOCRIT 40.7 % (39.0-51.0); HEMOGLOBIN 14.1 GM/DL (13.0-17.0); LYMPH % 7.4 % (9.0-44.0); LYMPHOCYTE # 0.5 TH/MM3 (1.0-4.8); MEAN CELL VOLUME 101.4 FL (80.0-100.0); MEAN CORPUSCULAR HGB CONC 34.5 % (32.0-36.0); MEAN PLATELET VOLUME 9.3 FL (7.0-11.0); MONO % 7.9 % (0.0-8.0); MONOCYTE # 0.5 TH/MM3 (0-0.9); NEUT % 84.7 % (16.0-70.0); PLATELET COUNT 113 TH/MM3 (150-450); RED BLOOD COUNT 4.02 MIL/MM3 (4.50-5.90); RED CELL DISTRIBUTION WIDTH 13.5 % (11.6-17.2); WHITE BLOOD COUNT 6.6 TH/MM3 (4.0-11.0)
[2017-10-14 05:08] LABS: CALCIUM 8.9 MG/DL (8.5-10.1)
[2017-10-14 05:18] LABS: ALKALINE PHOSPHATASE 51 U/L (45-117); ALT (GPT) 20 U/L (12-78); AST (GOT) 17 U/L (15-37); BICARBONATE 26.7 MEQ/L (21.0-32.0); BLOOD UREA NITROGEN 17 MG/DL (7-18); CALCIUM 8.7 MG/DL (8.5-10.1); CHLORIDE 108 MEQ/L (98-107); CREATININE 1.31 MG/DL (0.60-1.30); GLOMERULAR FILTRATION RATE 53 ML/MIN (>89); GLUCOSE,RANDOM 125 MG/DL (74-106); SODIUM (NA) 141 MEQ/L (136-145); TOTAL BILIRUBIN ADULT 0.5 MG/DL (0.2-1.0); TOTAL PROTEIN 5.8 GM/DL (6.4-8.2)
[2017-10-14 05:25] LABS: CALCIUM-PROTEIN CORRECTED 9.6 MG/DL (8.5-10.1)
[2017-10-14] MEDS: HEPARIN SODIUM - SQ 10,000 UNITS/ML VIAL SQ SCH ×2 (05:34→17:40)
--- NOTE | 2017-10-14 07:14 | HHI.PR ---
Subjective Remarks Alert in bed, slept well still quite sob Objective Vital Signs Date Time Temp Pulse Resp B/P (MAP) Pulse Ox O2 Delivery O2 Flow Rate FiO2 10/14/17 04:00 98.1 81 20 176/73 (107) 95 10/14/17 00:00 98.2 97 19 169/79 (109) 96 10/13/17 20:00 97.8 110 20 159/71 (100) 97 10/13/17 19:41 95 Nasal Cannula 3.00 10/13/17 16:00 98.4 105 22 157/74 (101) 95 10/13/17 12:00 98.7 101 22 168/74 (105) 97 10/13/17 10:00 98.7 110 22 160/77 (104) 96 10/13/17 09:43 10/13/17 09:00 106 22 164/75 (104) 95 Nasal Cannula 4.00 10/13/17 08:00 100 24 153/65 (94) 96 Nasal Cannula 4.00 I/O 10/13/17 10/13/17 10/13/17 10/14/17 10/14/17 10/14/17 07:00 15:00 23:00 07:00 15:00 23:00 Intake Total 480 ml 450 ml Output Total 100 ml 325 ml 1150 ml Balance -100 ml 155 ml -700 ml Intake Oral 480 ml 450 ml Output Urine Total 100 ml 325 ml 1150 ml Result Diagram: 10/14/17 0355 10/14/17 0355 Imaging Last [address] 10/13/17 1313 Signed Impressions: Service Date/Time: Friday, October 13, 2017 15:15 - CONCLUSION: 1. Left upper lobe and left lower lobe consolidation likely infiltrate. Recommend treatment and followup to resolution. 2. Mild emphysema without mass or concerning nodule. 3. Minimal coronary artery calcifications. Allen Alexander MD Chest X-Ray 10/13/17 0343 Signed Impressions: Service Date/Time: Friday, October 13, 2017 03:55 - CONCLUSION: 1. Persistent left lung base airspace disease, likely atelectasis/scarring. 2. No acute abnormality or significant interval change. Pedro Bunn MD Renal Ultrasound 10/13/17 0000 Signed Impressions: Service Date/Time: Friday, October 13, 2017 12:59 - CONCLUSION: 1. Kidneys are mildly echogenic which can be seen with early medical renal disease. 2. Possible nonobstructing calculi in the right kidney. 3. Left sided renal cysts. Allen Alexander MD Lower Extremity Ultrasound 10/13/17 0000 Signed Impressions: Service Date/Time: Friday, October 13, 2017 04:08 - CONCLUSION: 1. No sonographic evidence for right lower extremity DVT. Pedro Bunn MD Ankle X-Ray 10/13/17 0000 Signed Impressions: Service Date/Time: Friday, October 13, 2017 03:58 - CONCLUSION: 1. Diffuse soft tissue swelling without radiopaque foreign bodies, acute fracture or bony erosion. Pedro Bunn MD Objective Remarks GENERAL: This is a well-nourished, elderly male resting in bed on 4 liters SKIN: No rashes, ecchymotic area to B/L UE with skin tear to rue. HEAD: Atraumatic. Normocephalic. No temporal or scalp tenderness. EYES: Pupils equal round and reactive. Extraocular motions intact. No scleral icterus. No injection or drainage. ENT: Nose without bleeding, purulent drainage or septal hematoma. Throat without erythema, tonsillar hypertrophy or exudate. Uvula midline. Airway patent. NECK: Trachea midline. No JVD or lymphadenopathy. Supple, nontender, no meningeal signs. CARDIOVASCULAR: Regular rate and rhythm without murmurs, gallops, or rubs. RESPIRATORY: Breath sounds equal bilaterally expiratory wheezes, coarse GASTROINTESTINAL: Abdomen soft, non-tender, nondistended. No hepato-splenomegaly , or palpable masses. No guarding. MUSCULOSKELETAL: Right knee abrasion, trace edema NEUROLOGICAL: Awake and alert, Normal speech. Medications and IVs Current Medications Medications (Trade) Dose Ordered Sig/Nayeli Route Start Time Stop Time Status Last Admin (Proair Hfa Inh) 2 puff Q6HR INH 10/13/17 06:00 10/14/17 00:35 (Norvasc) 10 mg DAILY PO 10/13/17 09:00 10/13/17 09:27 (Cardura) 8 mg DAILY PO 10/13/17 09:00 10/13/17 09:27 (Proscar) 5 mg DAILY PO 10/13/17 09:00 10/13/17 09:25 (Breo Ellipta 200-25 Inh) 1 puff DAILY INH 10/13/17 09:00 10/13/17 16:48 (Prinivil) 5 mg DAILY PO 10/13/17 09:00 (Lopressor) 12.5 mg BID PO 10/13/17 09:00 10/13/17 20:37 (Elvie-Colace) 1 tab BID PO 10/13/17 09:00 10/13/17 09:25 (Flomax) 0.4 mg HS PO 10/13/17 21:00 10/13/17 20:38 (Desyrel) 100 mg HS PO 10/13/17 21:00 10/13/17 20:39 (NS Flush) 2 ml UNSCH PRN IV FLUSH 10/13/17 06:00 (NS Flush) 2 ml BID IV FLUSH 10/13/17 09:00 10/13/17 11:48 (Heparin Inj) 5,000 units Q12H SQ 10/13/17 06:00 10/14/17 05:34 (Narcan Inj) 0.4 mg UNSCH PRN IV PUSH 10/13/17 06:00 (Oscal) 500 mg Q12HR PO 10/13/17 09:00 10/13/17 20:37 (Mag-Ox) 400 mg Q12HR PO 10/13/17 09:00 10/13/17 20:38 (Pill Splitter) 1 ea UNSCH PRN OTHER 10/13/17 06:15 (SoluMEDROL INJ) 40 mg Q8H IV PUSH 10/13/17 11:00 10/14/17 04:07 (Duoneb Neb) 1 ampule Q4HR NEB NEB 10/13/17 12:00 10/13/17 19:39 (Duoneb Neb) 1 ampule Q2HR NEB PRN NEB 10/13/17 09:30 Sodium Chloride 1,000 ml @ 100 mls/hr Q10H IV 10/13/17 15:00 10/14/17 00:35 Ceftriaxone Sodium 1000 mg/ Sodium Chloride 100 ml @ 200 mls/hr Q24H IV 10/14/17 05:00 10/14/17 04:08 (Symbicort 160-4.5 Mcg Inh) 2 puff Q12HR INH 10/13/17 21:00 Assessment and Plan Problem List: (1) COPD exacerbation ICD Codes: J44.1 - COPD exacerbation Status: Acute Plan: Pulmonary following Keep sats >90. Trevor nebs, Solu Medrol. Bedside PFT , sputum cultures (2) Infiltrate noted on imaging study ICD Codes: R93.8 - Abnormal findings on diagnostic imaging of other specified body structures Plan: Pulmonary following, Rocephin in q24, Afebrile (3) Chronic renal disease ICD Codes: N18.9 - Chronic kidney disease Status: Acute Plan: Kidney functions improving ,History of nephrectomy r/t carcinoma. Renal following. Avoid nephro toxins, Monitor BMP (4) Hypertension ICD Codes: I10 - Essential (primary) hypertension Status: Acute Plan: Cont home medications, BP running high will add PRN for systolic >160 diastolic >90 (5) Weakness ICD Codes: R53.1 - Weakness Status: Acute Plan: PT eval and treat CM consult for rehab placement at [place] Discharge Planning Will likely need snf at [place] Sulma Macias Oct 14, 2017 07:14
[2017-10-14] MEDS: SODIUM CHLORIDE 0.9% FLUSH 10 ML FLUSH IV FLUSH SCH ×2 (09:00→21:42)
[2017-10-14] MEDS: BUDESONIDE-FORMOTEROL 160/4.5 MCG INHALER INH SCH ×2 (09:55→21:44)
[2017-10-14] MEDS: FLUTICASONE 200 MCG/VILANTEROL 25 MCG INHALER INH SCH (09:56)
[2017-10-14] MEDS: MAGNESIUM OXIDE 400 MG TAB PO SCH ×2 (09:58→21:39)
[2017-10-14] MEDS: METOPROLOL TARTRATE 25 MG TAB PO SCH ×2 (09:58→21:38)
[2017-10-14] MEDS: LISINOPRIL 5 MG TAB PO SCH (09:58)
[2017-10-14] MEDS: FINASTERIDE 5 MG TAB PO SCH (09:59)
[2017-10-14] MEDS: DOXAZOSIN MESYLATE 4 MG TAB PO SCH (09:59)
[2017-10-14] MEDS: CALCIUM CARBONATE 1.25 GM (CA 500 MG) TAB PO SCH ×2 (09:59→21:39)
[2017-10-14] MEDS: DOCUSATE SODIUM 50 MG/SENNA 8.6 MG TAB PO SCH ×2 (09:59→21:39)
--- NOTE | 2017-10-14 10:57 | HHI.NPPN ---
Subjective History of Present Illness Patient is a 72-year-old male presents to the emergency department by EMS transport from home s/p fall after getting out of bed and being to weak to get up. Patient states he has chronic COPD and this morning was getting up out of bed without his walker to go to the bathroom and noticed that when he stood up that both of his legs are weak causing him to fall to the floor. Denies any fevers, CP, nausea, vomiting or diarrhea. 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 Nephrology was consulted of hypocalcemia, electrolyte imbalance, and CKD, Was found to have a calcium level of 6.6, potassium level of 2.8, creatinine of 1.74 and GFR of 37 ml/min. Patient drinks 12 oz of 94 proof GIN daily. Additional Remarks Patient is visibly shaky. Mild SOB and lower extremity edema. (Raysa Bhakta) Review of Systems Respiratory Lungs: SOB (Raysa Bhakta) Cardiovascular Cardiac: Edema (Raysa Bhakta) Gastrointestinal GI Remarks Denies abdominal pain (Raysa Bhakta) Objective Data Data Vital Signs Date Time Temp Pulse Resp B/P (MAP) Pulse Ox O2 Delivery O2 Flow Rate FiO2 10/14/17 08:08 Nasal Cannula 3.00 10/14/17 08:00 98.6 75 24 165/74 (104) 95 10/14/17 04:00 98.1 81 20 176/73 (107) 95 10/14/17 00:00 98.2 97 19 169/79 (109) 96 10/13/17 20:00 97.8 110 20 159/71 (100) 97 10/13/17 19:41 95 Nasal Cannula 3.00 10/13/17 16:00 98.4 105 22 157/74 (101) 95 10/13/17 12:00 98.7 101 22 168/74 (105) 97 (Raysa Bhakta) -: 10/14/17 0355 10/14/17 0355 Imaging Last Impressions Chest CT 10/13/17 1313 Signed Impressions: Service Date/Time: Friday, October 13, 2017 15:15 - CONCLUSION: 1. Left upper lobe and left lower lobe consolidation likely infiltrate. Recommend treatment and followup to resolution. 2. Mild emphysema without mass or concerning nodule. 3. Minimal coronary artery calcifications. Allen Alexander MD Chest X-Ray 10/13/17 0343 Signed Impressions: Service Date/Time: Friday, October 13, 2017 03:55 - CONCLUSION: 1. Persistent left lung base airspace disease, likely atelectasis/scarring. 2. No acute abnormality or significant interval change. Pedro Bunn MD Renal Ultrasound 10/13/17 0000 Signed Impressions: Service Date/Time: Friday, October 13, 2017 12:59 - CONCLUSION: 1. Kidneys are mildly echogenic which can be seen with early medical renal disease. 2. Possible nonobstructing calculi in the right kidney. 3. Left sided renal cysts. Allen Alexander MD Lower Extremity Ultrasound 10/13/17 0000 Signed Impressions: Service Date/Time: Friday, October 13, 2017 04:08 - CONCLUSION: 1. No sonographic evidence for right lower extremity DVT. Pedro Bunn MD Ankle X-Ray 10/13/17 0000 Signed Impressions: Service Date/Time: Friday, October 13, 2017 03:58 - CONCLUSION: 1. Diffuse soft tissue swelling without radiopaque foreign bodies, acute fracture or bony erosion. Pedro Bunn MD (Raysa Bhakta) Physical Exam General Appearance: Anxious (Raysa Bhakta) Eyes Eye Exam: Pupils Equal (Raysa Bhakta) Pulmonary Resp Exam: Rhonchi, Sputum, Decreased Bases (Raysa Bhakta) Cardiology CV Exam: Tachycardia (Raysa Bhakta) Gastrointestinal/Abdomen GI Exam: Soft, Non-Tender, Bowel Sounds Present (Raysa Bhakta) Genitourinary Exam: Flank Non-Tender (Raysa Bhakta) Integumentary Skin Exam: Clear, Warm Skin Remarks bruising present (Raysa Bhakta) Extremeties Extremities Exam: Moderate Edema (Raysa Bhakta) Neurologic Neuro Exam: Alert, Awake, Oriented (Raysa Bhakta) Psychiatric Psych Exam: Appropriate Responses (Raysa Bhakta) Assessment/Plan Problem List: (1) Disorder of electrolytes ICD Codes: E87.8 - Other disorders of electrolyte and fluid balance, not elsewhere classified Status: Acute Plan: Calcium found to be at 6.6 and Potassium of 2.8 Patient has received replacement and now WNL (2) Chronic renal disease ICD Codes: N18.9 - Chronic kidney disease Status: Acute Plan: Patient with history of right partial nephrectomy for tumor. Creatinine is 1.82 and GFR 37 ml/min. This is most likely patients baseline. Most likely has CKD from HTN or renal vascular disease Patient has BERE, possibly pre renal or ATN. Renal US : mildly echogenic which can be seen with early medical renal disease, possible nonobstructing calculi in the right kidney, and left sided renal cysts. Non Oliguiric Plan Will decrease IVF's with patient tolerating PO and noted edema. HTN metoprolol increased UA and C+S is still pending Potassium and Calcium levels WNL now Will monitor labs and UOP (3) COPD exacerbation ICD Codes: J44.1 - COPD exacerbation Status: Acute (4) Lactic acidosis ICD Codes: E87.2 - Acidosis Status: Acute (5) Hypertension ICD Codes: I10 - Essential (primary) hypertension Status: Acute (6) Weakness ICD Codes: R53.1 - Weakness Status: Acute (Raysa Bhakta) Problem List: (1) Disorder of electrolytes ICD Codes: E87.8 - Other disorders of electrolyte and fluid balance, not elsewhere classified Status: Acute Plan: Calcium found to be at 6.6 and Potassium of 2.8 Patient has received replacement and now WNL (2) Chronic renal disease ICD Codes: N18.9 - Chronic kidney disease Status: Acute Plan: Patient with history of right partial nephrectomy for tumor. Creatinine is 1.82 and GFR 37 ml/min. This is most likely patients baseline. Most likely has CKD from HTN or renal vascular disease Patient has BERE, possibly pre renal or ATN. Renal US : mildly echogenic which can be seen with early medical renal disease, possible nonobstructing calculi in the right kidney, and left sided renal cysts. Non Oliguiric Plan Will decrease IVF's with patient tolerating PO and noted edema. HTN metoprolol increased UA and C+S is still pending Potassium and Calcium levels WNL now Will monitor labs and UOP. Patient seen and examined, agree with above. Calcium and K now normalized. Creatinine continue to improve. (3) COPD exacerbation ICD Codes: J44.1 - COPD exacerbation Status: Acute (4) Lactic acidosis ICD Codes: E87.2 - Acidosis Status: Acute (5) Hypertension ICD Codes: I10 - Essential (primary) hypertension Status: Acute (6) Weakness ICD Codes: R53.1 - Weakness Status: Acute (Roberto Benitez MD) Raysa Bhakta Oct 14, 2017 10:57 Roberto Benitez MD Oct 14, 2017 19:19
[2017-10-14] MEDS: LORazepam 1 MG TAB PO SCH ×2 (12:09→17:40)
--- NOTE | 2017-10-14 17:34 | HHI.PR ---
Subjective Remarks He is better. No cough and less wheezing. On O2 2 L. Poor appetite. Objective Vital Signs Date Time Temp Pulse Resp B/P (MAP) Pulse Ox O2 Delivery O2 Flow Rate FiO2 10/14/17 16:00 98.4 77 26 165/74 (104) 96 10/14/17 12:00 98.3 95 23 165/74 (104) 97 10/14/17 08:08 Nasal Cannula 3.00 10/14/17 08:00 98.6 75 24 165/74 (104) 95 10/14/17 04:00 98.1 81 20 176/73 (107) 95 10/14/17 00:00 98.2 97 19 169/79 (109) 96 10/13/17 20:00 97.8 110 20 159/71 (100) 97 10/13/17 19:41 95 Nasal Cannula 3.00 I/O 10/13/17 10/13/17 10/13/17 10/14/17 10/14/17 10/14/17 07:00 15:00 23:00 07:00 15:00 23:00 Intake Total 480 ml 450 ml Output Total 100 ml 325 ml 1150 ml Balance -100 ml 155 ml -700 ml Intake Oral 480 ml 450 ml Output Urine Total 100 ml 325 ml 1150 ml Result Diagram: 10/14/17 0355 10/14/17 0355 Objective Remarks GENERAL: This elderly, averagely built, white male is alert, in no acute distress. Pallor noted. No cyanosis. There is mild peripheral edema. No lymphadenopathy. Skin turgor is normal HEENT: Head normocephalic. Pupils are reactive and equal. Tongue is moist. Throat is injected. Nasal mucosa dry. NECK: No bruits. Small venous distension while lying flat. Trachea midline. CHEST: Equal movements with coarse wheezes throughout both lung carrizales. Crackles over the left base. HEART: Sounds were regular S1 and S2 with no murmur, no S3. ABDOMEN: Soft, protuberant without masses. No organomegaly or tenderness. Bowel sounds are active. EXTREMITIES: Decreased peripheral pulses and minimal edema. Reflexes are 1+. The patient does move his extremities sluggishly. CRANIAL NERVES: Grossly intact. RECTAL: Exam is deferred. SKIN: Cool and dry. Assessment and Plan Assessment and Plan IMPRESSION: 1. Chronic obstructive pulmonary disease with acute exacerbation. 2. Dehydration and acute kidney injury. 3. History of hypertension. 4. Left basilar pneumonia. Plan : 1. Continue Rocephin 1 G IV daily. 2. Solumedrol 40 Mg IV Q8H 3. O2 at 3 L. 4. Zithromax ,500 mg daily. 5.Duoneb nebs qid. 6. Get PFT with Bronchodilator 7. CBC, BMP Vaibhav Tubbs MD Oct 14, 2017 17:34
[2017-10-14 19:40] LABS: BILIRUBIN, URINE NEG (NEG); BLOOD, URINE TRACE (NEG); GLUCOSE,URINE NEG (NEG); KETONE, URINE NEG (NEG); NITRITE,URINE NEG (NEG); URINE COLOR LIGHT-YELLOW (YELLW/STRAW); URINE LEUKOCYTE ESTERASE NEG (NEG)
[2017-10-14] MEDS: AZITHROMYCIN 250 MG TAB PO SCH (21:39)
[2017-10-14] MEDS: traZODone HCL 100 MG TAB PO SCH (21:39)
[2017-10-14] MEDS: TAMSULOSIN HCL 0.4 MG CAP PO SCH (21:39)
[2017-10-15] VITALS (10 sets, daily range): BP systolic 145–171; BP diastolic 67–78; PULSE 69–97; RESP 18–24; TEMP 96.9–98.2; O2SAT 88–99
[2017-10-15] MEDS: LORazepam 1 MG TAB PO SCH ×5 (01:30→22:20)
[2017-10-15] MEDS: methylPREDNISolone SOD SUCC 40 MG/1 ML VIAL IV PUSH SCH ×3 (01:30→22:21)
[2017-10-15] MEDS: ALBUTEROL SULFATE 90 MCG/ACT HFA 8 GM INHALER INH SCH ×5 (01:31→22:40)
[2017-10-15] MEDS: RESP: ALBUTEROL 2.5 MG/IPRATROPIUM 0.5 MG NEB (SCH) NEB ×6 (03:18→20:25)
[2017-10-15] MEDS: cefTRIAXone INJ 1,000 MG in SODIUM CHLORIDE 0.9% INJ 100 ML IV SCH (04:49)
[2017-10-15] MEDS: HEPARIN SODIUM - SQ 10,000 UNITS/ML VIAL SQ SCH ×2 (04:52→18:23)
[2017-10-15] MEDS: SODIUM CHLOR 0.9% 1000 ML INJ 1,000 ML IV SCH ×2 (04:54→22:19)
--- NOTE | 2017-10-15 06:35 | RADRPT ---
EXAM DATE/TIME: 10/15/2017 05:32 [facility] COMPARISON: CHEST SINGLE AP, October 13, 2017, 3:55. INDICATIONS : Short of breath. MEDICAL HISTORY : Chronic obstructive pulmonary disease. Renal calculi. Renal cell carcinoma. SURGICAL HISTORY : Nephrectomy, right. ENCOUNTER: Subsequent ACUITY: 3 days PAIN SCORE: Non-responsive. LOCATION: Bilateral chest FINDINGS: Interval development of left lower lobe airspace consolidation. Cardiomediastinal contours are stable . Remainder of exam is unchanged. CONCLUSION: 1. Interval development of left lower lobe airspace consolidation concerning for pneumonia or aspirat ion in the appropriate clinical setting. Pedro Bunn MD on October 15, 2017 at 6:33 Board Certified Radiologist. This report was verified electronically.
--- NOTE | 2017-10-15 08:45 | HHI.PR ---
Subjective Remarks Confused and agitated thia am Objective Vital Signs Date Time Temp Pulse Resp B/P (MAP) Pulse Ox O2 Delivery O2 Flow Rate FiO2 10/15/17 08:00 97.9 97 18 171/78 (109) 93 10/15/17 04:00 98.2 78 24 151/67 (95) 96 10/15/17 00:19 98.2 78 24 170/74 (106) 96 10/14/17 23:00 89 10/14/17 19:55 97.8 94 25 151/67 (95) 10/14/17 19:38 95 Nasal Cannula 3.00 10/14/17 16:00 98.4 77 26 165/74 (104) 96 10/14/17 12:00 98.3 95 23 165/74 (104) 97 I/O 10/14/17 10/14/17 10/14/17 10/15/17 10/15/17 10/15/17 07:00 15:00 23:00 07:00 15:00 23:00 Intake Total 450 ml 960 ml 1580 ml Output Total 1150 ml 1000 ml 800 ml Balance -700 ml -40 ml 780 ml Intake Oral 450 ml 960 ml 480 ml IV Total 1100 ml Output Urine Total 1150 ml 1000 ml 800 ml # Bowel Movements 0 Result Diagram: 10/14/17 0355 10/14/17 0355 Other Results Laboratory Tests Test 10/13/17 04:00 10/13/17 05:10 10/13/17 05:52 10/13/17 06:00 Random Glucose 54 MG/DL (74-106) Total Protein 3.5 GM/DL (6.4-8.2) Albumin 1.8 GM/DL (3.4-5.0) Calcium Level 5.1 MG/DL (8.5-10.1) Magnesium Level 1.1 MG/DL (1.5-2.5) Alkaline Phosphatase 30 U/L (45-117) Aspartate Amino Transf (AST/SGOT) 13 U/L (15-37) Sodium Level 150 MEQ/L (136-145) Potassium Level 2.8 MEQ/L (3.5-5.1) Chloride Level 124 MEQ/L (98-107) 109 MEQ/L (98-107) Carbon Dioxide Level 12.7 MEQ/L (21.0-32.0) 20.6 MEQ/L (21.0-32.0) Estimat Glomerular Filtration Rate 74 ML/MIN (>89) 37 ML/MIN (>89) Protein Corrected Calcium 6.6 MG/DL (8.5-10.1) Troponin I LESS THAN 0.02 NG/ML Red Blood Count 4.39 MIL/MM3 (4.50-5.90) Mean Corpuscular Volume 101.9 FL (80.0-100.0) Mean Corpuscular Hemoglobin 35.2 PG (27.0-34.0) Platelet Count 131 TH/MM3 (150-450) Neutrophils (%) (Auto) 89.5 % (16.0-70.0) Lymphocytes (%) (Auto) 6.7 % (9.0-44.0) Neutrophils # (Auto) 8.4 TH/MM3 (1.8-7.7) Lymphocytes # (Auto) 0.6 TH/MM3 (1.0-4.8) Prothrombin Time 9.2 SEC (9.8-11.6) Lactic Acid Level 4.4 mmol/L (0.4-2.0) Blood Urea Nitrogen 20 MG/DL (7-18) Creatinine 1.82 MG/DL (0.60-1.30) Venous Blood pH 7.31 (7.360-7.400) Test 10/13/17 09:30 10/13/17 11:30 10/14/17 03:55 10/14/17 19:00 Blood Gas HCO3 18 mmol/L (22-26) Blood Gas Base Excess -6.6 mmol/L (-2-2) Arterial Blood pH 7.37 (7.380-7.420) Arterial Blood Partial Pressure CO2 31 mmHg (38-42) Red Blood Count 4.28 MIL/MM3 (4.50-5.90) 4.02 MIL/MM3 (4.50-5.90) Mean Corpuscular Volume 101.3 FL (80.0-100.0) 101.4 FL (80.0-100.0) Mean Corpuscular Hemoglobin 34.8 PG (27.0-34.0) 35.0 PG (27.0-34.0) Platelet Count 117 TH/MM3 (150-450) 113 TH/MM3 (150-450) Neutrophils (%) (Auto) 96.6 % (16.0-70.0) 84.7 % (16.0-70.0) Lymphocytes (%) (Auto) 2.6 % (9.0-44.0) 7.4 % (9.0-44.0) Lymphocytes # (Auto) 0.2 TH/MM3 (1.0-4.8) 0.5 TH/MM3 (1.0-4.8) Blood Urea Nitrogen 20 MG/DL (7-18) Creatinine 1.74 MG/DL (0.60-1.30) 1.31 MG/DL (0.60-1.30) Random Glucose 166 MG/DL (74-106) 125 MG/DL (74-106) Potassium Level 5.6 MEQ/L (3.5-5.1) Chloride Level 109 MEQ/L (98-107) 108 MEQ/L (98-107) Estimat Glomerular Filtration Rate 39 ML/MIN (>89) 53 ML/MIN (>89) Total Protein 5.8 GM/DL (6.4-8.2) Albumin 3.0 GM/DL (3.4-5.0) 25-Hydroxy Vitamin D Total 25.5 ng/ML (30-100) Urine Protein 30 mg/dL (NEG-TRACE) Urine Occult Blood TRACE (NEG) Objective Remarks GENERAL: This is a well-nourished, elderly male resting in bed on 4 liters SKIN: No rashes, ecchymotic area to B/L UE with skin tear to rue. HEAD: Atraumatic. Normocephalic. No temporal or scalp tenderness. EYES: Pupils equal round and reactive. Extraocular motions intact. No scleral icterus. No injection or drainage. ENT: Nose without bleeding, purulent drainage or septal hematoma. Throat without erythema, tonsillar hypertrophy or exudate. Uvula midline. Airway patent. NECK: Trachea midline. No JVD or lymphadenopathy. Supple, nontender, no meningeal signs. CARDIOVASCULAR: Regular rate and rhythm without murmurs, gallops, or rubs. RESPIRATORY: Breath sounds equal bilaterally expiratory wheezes, coarse GASTROINTESTINAL: Abdomen soft, non-tender, nondistended. No hepato-splenomegaly , or palpable masses. No guarding. MUSCULOSKELETAL: Right knee abrasion, trace edema NEUROLOGICAL: Awake and alert, Normal speech. Medications and IVs Current Medications Medications (Trade) Dose Ordered Sig/Nayeli Route Start Time Stop Time Status Last Admin (Proair Hfa Inh) 2 puff Q6HR INH 10/13/17 06:00 10/15/17 04:50 (Norvasc) 10 mg DAILY PO 10/13/17 09:00 10/14/17 09:59 (Cardura) 8 mg DAILY PO 10/13/17 09:00 10/14/17 09:59 (Proscar) 5 mg DAILY PO 10/13/17 09:00 10/14/17 09:59 (Breo Ellipta 200-25 Inh) 1 puff DAILY INH 10/13/17 09:00 10/14/17 09:56 (Prinivil) 5 mg DAILY PO 10/13/17 09:00 10/14/17 09:58 (Elvie-Colace) 1 tab BID PO 10/13/17 09:00 10/14/17 21:39 (Flomax) 0.4 mg HS PO 10/13/17 21:00 10/14/17 21:39 (Desyrel) 100 mg HS PO 10/13/17 21:00 10/14/17 21:39 (NS Flush) 2 ml UNSCH PRN IV FLUSH 10/13/17 06:00 (NS Flush) 2 ml BID IV FLUSH 10/13/17 09:00 10/14/17 21:42 (Heparin Inj) 5,000 units Q12H SQ 10/13/17 06:00 10/15/17 04:52 (Narcan Inj) 0.4 mg UNSCH PRN IV PUSH 10/13/17 06:00 (Oscal) 500 mg Q12HR PO 10/13/17 09:00 10/14/17 21:39 (Mag-Ox) 400 mg Q12HR PO 10/13/17 09:00 10/14/17 21:39 (Pill Splitter) 1 ea UNSCH PRN OTHER 10/13/17 06:15 (SoluMEDROL INJ) 40 mg Q8H IV PUSH 10/13/17 11:00 10/15/17 01:30 (Duoneb Neb) 1 ampule Q4HR NEB NEB 10/13/17 12:00 10/15/17 08:24 (Duoneb Neb) 1 ampule Q2HR NEB PRN NEB 10/13/17 09:30 Sodium Chloride 1,000 ml @ 42 mls/hr [id number] IV 10/13/17 15:00 10/15/17 04:54 Ceftriaxone Sodium 1000 mg/ Sodium Chloride 100 ml @ 200 mls/hr Q24H IV 10/14/17 05:00 10/15/17 04:49 (Symbicort 160-4.5 Mcg Inh) 2 puff Q12HR INH 10/13/17 21:00 10/14/17 21:44 (Apresoline) 10 mg Q6HR PRN PO 10/14/17 08:30 (Habitrol 21 Mg Patch.24 Hr) 1 patch DAILY T-DERMAL 10/15/17 09:00 Miscellaneous Information 1 DAILY T-DERMAL 10/15/17 09:00 (Ativan) 1 mg Q6HR PO 10/14/17 12:00 10/15/17 04:49 (Lopressor) 25 mg BID PO 10/14/17 21:00 10/14/17 21:38 (Zithromax) 500 mg Q24H PO 10/14/17 20:00 10/14/17 21:39 (Haldol Inj) 5 mg Q6H PRN IM 10/15/17 09:45 Assessment and Plan Problem List: (1) Alcohol withdrawal ICD Codes: F10.239 - Alcohol dependence with withdrawal, unspecified Plan: Patient agitated today, Ativan 1 mg q6 scheduled. CIWA initiated. (2) COPD exacerbation ICD Codes: J44.1 - COPD exacerbation Status: Acute Plan: Pulmonary following Keep sats >90. Trevor nebs, Solu Medrol. (3) Infiltrate noted on imaging study ICD Codes: R93.8 - Abnormal findings on diagnostic imaging of other specified body structures Plan: Pulmonary following, Rocephin in q24, Afebrile Will get ST to do swallow eval (4) Chronic renal disease ICD Codes: N18.9 - Chronic kidney disease Status: Acute Plan: Kidney functions improving ,History of nephrectomy r/t carcinoma. Renal following. Avoid nephro toxins, Monitor BMP pending this am (5) Hypertension ICD Codes: I10 - Essential (primary) hypertension Status: Acute Plan: Cont home medications, BP running high Metoprolol increased yesterday PRN added for systolic >160 diastolic >90 (6) Weakness ICD Codes: R53.1 - Weakness Status: Acute Plan: PT eval and treat CM consult for rehab placement at [facility] Oct 15, 2017 08:45
[2017-10-15] MEDS: REMOVE OLD PATCH T-DERMAL SCH (09:00)
[2017-10-15] MEDS: NICOTINE 21 MG/24 HR PATCH T-DERMAL SCH (09:34)
[2017-10-15] MEDS: MAGNESIUM OXIDE 400 MG TAB PO SCH ×2 (09:35→22:20)
[2017-10-15] MEDS: DOXAZOSIN MESYLATE 4 MG TAB PO SCH (09:35)
[2017-10-15] MEDS: DOCUSATE SODIUM 50 MG/SENNA 8.6 MG TAB PO SCH ×2 (09:35→22:20)
[2017-10-15] MEDS: CALCIUM CARBONATE 1.25 GM (CA 500 MG) TAB PO SCH ×2 (09:36→22:20)
[2017-10-15] MEDS: METOPROLOL TARTRATE 25 MG TAB PO SCH ×2 (09:36→22:20)
[2017-10-15] MEDS: LISINOPRIL 5 MG TAB PO SCH (09:36)
[2017-10-15] MEDS: SODIUM CHLORIDE 0.9% FLUSH 10 ML FLUSH IV FLUSH SCH ×2 (09:36→22:24)
[2017-10-15] MEDS: FINASTERIDE 5 MG TAB PO SCH (09:36)
[2017-10-15] MEDS: BUDESONIDE-FORMOTEROL 160/4.5 MCG INHALER INH SCH ×2 (09:37→22:21)
[2017-10-15] MEDS: FLUTICASONE 200 MCG/VILANTEROL 25 MCG INHALER INH SCH (09:37)
[2017-10-15] MEDS ORDERED: HALOPERIDOL LACTATE 5 MG/ML AMP IM PRN (09:45)
[2017-10-15] MEDS ORDERED: LORazepam 2 MG/ML VIAL IV PUSH PRN ×4 (10:00)
[2017-10-15] MEDS ORDERED: LORazepam 1 MG TAB PO PRN (10:00)
[2017-10-15] MEDS ORDERED: FLUMAZENIL 0.5 MG/5 ML VIAL IV PUSH PRN (10:00)
[2017-10-15] MEDS ORDERED: LORazepam 2 MG TAB PO PRN (10:00)
--- NOTE | 2017-10-15 11:20 | HHI.NPPN ---
Subjective History of Present Illness Patient is a 72-year-old male presents to the emergency department by EMS transport from home s/p fall after getting out of bed and being to weak to get up. Patient states he has chronic COPD and this morning was getting up out of bed without his walker to go to the bathroom and noticed that when he stood up that both of his legs are weak causing him to fall to the floor. Denies any fevers, CP, nausea, vomiting or diarrhea. 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 Nephrology was consulted of hypocalcemia, electrolyte imbalance, and CKD, Was found to have a calcium level of 6.6, potassium level of 2.8, creatinine of 1.74 and GFR of 37 ml/min. Patient drinks 12 oz of 94 proof GIN daily. Additional Remarks Patient is visibly shaky, agitated, and confused. Mild SOB and lower extremity edema. (Raysa Bhakta) Review of Systems Respiratory Lungs: SOB (Raysa Bhakta) Cardiovascular Cardiac: Edema (Raysa Bhakta) Gastrointestinal GI Remarks Denies abdominal pain (Raysa Bhakta) Objective Data Data 10/15/17 10/16/17 19:00 07:00 Output Total 150 ml Balance -150 ml Output Urine Total 150 ml Vital Signs Date Time Temp Pulse Resp B/P (MAP) Pulse Ox O2 Delivery O2 Flow Rate FiO2 10/15/17 08:00 97.9 97 18 171/78 (109) 93 10/15/17 04:00 98.2 78 24 151/67 (95) 96 10/15/17 00:19 98.2 78 24 170/74 (106) 96 10/14/17 23:00 89 10/14/17 19:55 97.8 94 25 151/67 (95) 10/14/17 19:38 95 Nasal Cannula 3.00 10/14/17 16:00 98.4 77 26 165/74 (104) 96 10/14/17 12:00 98.3 95 23 165/74 (104) 97 (Raysa Bhakta) -: 10/14/17 0355 10/14/17 0355 Physical Exam General Appearance: Anxious (Raysa Bhakta) Eyes Eye Exam: Pupils Equal (Raysa Bhakta) Pulmonary Resp Exam: Rhonchi, Sputum, Decreased Bases (Raysa Bhakta) Cardiology CV Exam: Tachycardia (Raysa Bhakta) Gastrointestinal/Abdomen GI Exam: Soft, Non-Tender, Bowel Sounds Present (Raysa Bhakta) Genitourinary Exam: Flank Non-Tender (Raysa Bhakta) Integumentary Skin Exam: Clear, Warm Skin Remarks bruising present (Rayas Bhakta) Extremeties Extremities Exam: Moderate Edema (Raysa Bhakta) Neurologic Neuro Exam: Alert, Awake, Oriented (Raysa Bhakta) Psychiatric Psych Exam: Appropriate Responses (Raysa Bhakta) Assessment/Plan Problem List: (1) Chronic renal disease ICD Codes: N18.9 - Chronic kidney disease Status: Acute Plan: Patient with history of right partial nephrectomy for tumor. Creatinine is 1.82 and GFR 37 ml/min. This is most likely patients baseline. Most likely has CKD from HTN or renal vascular disease Patient has BERE, possibly pre renal or ATN. Renal US : mildly echogenic which can be seen with early medical renal disease, possible nonobstructing calculi in the right kidney, and left sided renal cysts. Non Oliguiric Proteinurea noted Plan Calcium and K now normalized. Creatinine continue to improve. Will monitor labs and UOP. Continue IVF Labs pending today (2) Disorder of electrolytes ICD Codes: E87.8 - Other disorders of electrolyte and fluid balance, not elsewhere classified Status: Acute Plan: Calcium found to be at 6.6 and Potassium of 2.8 on admission Patient has received replacement and now WNL (3) COPD exacerbation ICD Codes: J44.1 - COPD exacerbation Status: Acute (4) Lactic acidosis ICD Codes: E87.2 - Acidosis Status: Acute (5) Hypertension ICD Codes: I10 - Essential (primary) hypertension Status: Acute (6) Weakness ICD Codes: R53.1 - Weakness Status: Acute (Raysa Bhakta) Problem List: (1) Chronic renal disease ICD Codes: N18.9 - Chronic kidney disease Status: Acute Plan: Patient with history of right partial nephrectomy for tumor. Creatinine is 1.82 and GFR 37 ml/min. This is most likely patients baseline. Most likely has CKD from HTN or renal vascular disease Patient has BERE, possibly pre renal or ATN. Renal US : mildly echogenic which can be seen with early medical renal disease, possible nonobstructing calculi in the right kidney, and left sided renal cysts. Non Oliguiric Proteinurea noted Plan Calcium and K now normalized. Creatinine continue to improve. Will monitor labs and UOP. Continue IVF Patient seen and examined, agree with above. Creatinine is almost same. (2) Disorder of electrolytes ICD Codes: E87.8 - Other disorders of electrolyte and fluid balance, not elsewhere classified Status: Acute Plan: Calcium found to be at 6.6 and Potassium of 2.8 on admission Patient has received replacement and now WNL (3) COPD exacerbation ICD Codes: J44.1 - COPD exacerbation Status: Acute (4) Lactic acidosis ICD Codes: E87.2 - Acidosis Status: Acute (5) Hypertension ICD Codes: I10 - Essential (primary) hypertension Status: Acute (6) Weakness ICD Codes: R53.1 - Weakness Status: Acute (Roberto Benitez MD) Raysa Bhakta Oct 15, 2017 11:20 Roberto Benitez MD Oct 15, 2017 21:25
[2017-10-15 12:05] LABS: AUTOMATED NEUTROPHIL # 5.3 TH/MM3 (1.8-7.7); BASOPHIL % 0.4 % (0.0-2.0); EOSINOPHIL % 0.1 % (0.0-4.0); HEMATOCRIT 40.8 % (39.0-51.0); HEMOGLOBIN 14.2 GM/DL (13.0-17.0); LYMPH % 2.4 % (9.0-44.0); LYMPHOCYTE # 0.1 TH/MM3 (1.0-4.8); MEAN CELL VOLUME 101.6 FL (80.0-100.0); MEAN CORPUSCULAR HEMOGLOBIN 35.4 PG (27.0-34.0); MEAN CORPUSCULAR HGB CONC 34.8 % (32.0-36.0); MEAN PLATELET VOLUME 9.6 FL (7.0-11.0); MONO % 4.2 % (0.0-8.0); MONOCYTE # 0.2 TH/MM3 (0-0.9); NEUT % 92.9 % (16.0-70.0); PLATELET COUNT 107 TH/MM3 (150-450); RED BLOOD COUNT 4.02 MIL/MM3 (4.50-5.90); RED CELL DISTRIBUTION WIDTH 13.6 % (11.6-17.2); WHITE BLOOD COUNT 5.7 TH/MM3 (4.0-11.0)
[2017-10-15 12:33] LABS: BICARBONATE 24.3 MEQ/L (21.0-32.0); CALCIUM 8.6 MG/DL (8.5-10.1); CREATININE 1.46 MG/DL (0.60-1.30)
--- NOTE | 2017-10-15 18:12 | HHI.PR ---
Subjective Remarks Was agitated today and given IV Ativan. Now sleepy No cough and less wheezing. On O2 3 L. Objective Vital Signs Date Time Temp Pulse Resp B/P (MAP) Pulse Ox O2 Delivery O2 Flow Rate FiO2 10/15/17 16:00 96.9 73 18 171/72 (105) 97 10/15/17 12:23 95 Nasal Cannula 2.00 10/15/17 12:18 88 21 10/15/17 12:00 98.0 87 20 158/78 (104) 97 10/15/17 08:00 97.9 97 18 171/78 (109) 93 10/15/17 04:00 98.2 78 24 151/67 (95) 96 10/15/17 00:19 98.2 78 24 170/74 (106) 96 10/14/17 23:00 89 10/14/17 19:55 97.8 94 25 151/67 (95) 10/14/17 19:38 95 Nasal Cannula 3.00 I/O 10/14/17 10/14/17 10/14/17 10/15/17 10/15/17 10/15/17 07:00 15:00 23:00 07:00 15:00 23:00 Intake Total 450 ml 960 ml 1580 ml 240 ml Output Total 1150 ml 1000 ml 800 ml 150 ml 1000 ml Balance -700 ml -40 ml 780 ml -150 ml -760 ml Intake Oral 450 ml 960 ml 480 ml 240 ml IV Total 1100 ml Output Urine Total 1150 ml 1000 ml 800 ml 150 ml 1000 ml # Voids 2 # Bowel Movements 0 0 Result Diagram: 10/15/17 1102 10/15/17 1102 Objective Remarks GENERAL: This elderly, averagely built, white male is sleepy , in no acute distress. Pallor noted. No cyanosis. There is mild peripheral edema. No lymphadenopathy. Skin turgor is normal HEENT: Head normocephalic. Pupils are reactive and equal. Tongue is moist. Nasal mucosa dry. NECK: No bruits. Small venous distension while lying flat. Trachea midline. CHEST: Equal movements with coarse wheezes throughout both lung carrizales. Crackles at the left base. HEART: Sounds were regular S1 and S2 with no murmur, no S3. ABDOMEN: Soft, protuberant without masses. No organomegaly or tenderness. Bowel sounds are active. EXTREMITIES: Decreased peripheral pulses and minimal edema. Reflexes are 1+. The patient does move his extremities sluggishly. CRANIAL NERVES: Grossly intact. RECTAL: Exam is deferred. SKIN: Cool and dry. Assessment and Plan Assessment and Plan IMPRESSION: 1. Chronic obstructive pulmonary disease with acute exacerbation. 2. Dehydration and acute kidney injury. 3. History of hypertension. 4. Left basilar pneumonia. Plan : 1. Continue Rocephin 1 G IV daily. 2. Solumedrol 40 Mg IV Q12H 3. O2 at 3 L. 4. Zithromax ,500 mg po daily. 5.Duoneb nebs qid. 6. Ativan .5 mg Q6H prn 7. CBC, CXR BMP in am 8. Thiamine 100 mg daily Vaibhav Tubbs MD Oct 15, 2017 18:12
[2017-10-15] MEDS: TAMSULOSIN HCL 0.4 MG CAP PO SCH (22:20)
[2017-10-15] MEDS: traZODone HCL 100 MG TAB PO SCH (22:21)
[2017-10-15] MEDS: AZITHROMYCIN 250 MG TAB PO SCH (22:30)
[2017-10-16] VITALS (11 sets, daily range): BP systolic 134–165; BP diastolic 67–90; PULSE 61–111; RESP 17–22; TEMP 97.1–97.8; O2SAT 95–99
[2017-10-16 04:19] LABS: AUTOMATED NEUTROPHIL # 4.5 TH/MM3 (1.8-7.7); BASOPHIL % 0.1 % (0.0-2.0); HEMATOCRIT 42.3 % (39.0-51.0); HEMOGLOBIN 14.4 GM/DL (13.0-17.0); LYMPH % 3.9 % (9.0-44.0); LYMPHOCYTE # 0.2 TH/MM3 (1.0-4.8); MEAN CELL VOLUME 102.3 FL (80.0-100.0); MEAN CORPUSCULAR HGB CONC 34.2 % (32.0-36.0); MONO % 4.1 % (0.0-8.0); MONOCYTE # 0.2 TH/MM3 (0-0.9); NEUT % 91.9 % (16.0-70.0); PLATELET COUNT 98 TH/MM3 (150-450); RED BLOOD COUNT 4.13 MIL/MM3 (4.50-5.90); RED CELL DISTRIBUTION WIDTH 13.2 % (11.6-17.2); WHITE BLOOD COUNT 4.9 TH/MM3 (4.0-11.0)
[2017-10-16] MEDS: RESP: ALBUTEROL 2.5 MG/IPRATROPIUM 0.5 MG NEB (SCH) NEB ×6 (04:29→19:41)
[2017-10-16 04:46] LABS: BICARBONATE 31.2 MEQ/L (21.0-32.0); CALCIUM 8.7 MG/DL (8.5-10.1); CREATININE 1.2 MG/DL (0.60-1.30)
[2017-10-16] MEDS: cefTRIAXone INJ 1,000 MG in SODIUM CHLORIDE 0.9% INJ 100 ML IV SCH (05:06)
[2017-10-16] MEDS: LORazepam 1 MG TAB PO SCH ×4 (05:25→23:47)
[2017-10-16] MEDS: HEPARIN SODIUM - SQ 10,000 UNITS/ML VIAL SQ SCH ×2 (05:26→17:53)
[2017-10-16] MEDS: ALBUTEROL SULFATE 90 MCG/ACT HFA 8 GM INHALER INH SCH ×4 (05:26→23:47)
[2017-10-16] MEDS: REMOVE OLD PATCH T-DERMAL SCH (09:00)
[2017-10-16] MEDS: FINASTERIDE 5 MG TAB PO SCH (09:55)
[2017-10-16] MEDS: SODIUM CHLOR 0.9% 1000 ML INJ 1,000 ML IV SCH ×3 (09:55→23:47)
[2017-10-16] MEDS: DOXAZOSIN MESYLATE 4 MG TAB PO SCH (09:56)
[2017-10-16] MEDS: METOPROLOL TARTRATE 25 MG TAB PO SCH ×2 (09:56→20:31)
[2017-10-16] MEDS: MAGNESIUM OXIDE 400 MG TAB PO SCH ×2 (09:56→20:31)
[2017-10-16] MEDS: CALCIUM CARBONATE 1.25 GM (CA 500 MG) TAB PO SCH ×2 (09:56→20:31)
[2017-10-16] MEDS: DOCUSATE SODIUM 50 MG/SENNA 8.6 MG TAB PO SCH ×2 (09:56→20:31)
[2017-10-16] MEDS: LISINOPRIL 5 MG TAB PO SCH (09:56)
[2017-10-16] MEDS: methylPREDNISolone SOD SUCC 40 MG/1 ML VIAL IV PUSH SCH (09:57)
[2017-10-16] MEDS: BUDESONIDE-FORMOTEROL 160/4.5 MCG INHALER INH SCH ×2 (09:57→20:32)
[2017-10-16] MEDS: SODIUM CHLORIDE 0.9% FLUSH 10 ML FLUSH IV FLUSH SCH ×2 (09:57→20:31)
[2017-10-16] MEDS: FLUTICASONE 200 MCG/VILANTEROL 25 MCG INHALER INH SCH (09:58)
[2017-10-16] MEDS: THIAMINE HCL 200 MG/2 ML VIAL IM SCH (09:58)
[2017-10-16] MEDS: NICOTINE 21 MG/24 HR PATCH T-DERMAL SCH (10:04)
--- NOTE | 2017-10-16 10:42 | HHI.NPPN ---
Subjective Complaints: Confused, Shortness of Breath General Problems: Edema, Hypertension Renal Failure: Chronic, Acute History of Present Illness Patient is a 72-year-old male presents to the emergency department by EMS transport from home s/p fall after getting out of bed and being to weak to get up. Patient states he has chronic COPD and this morning was getting up out of bed without his walker to go to the bathroom and noticed that when he stood up that both of his legs are weak causing him to fall to the floor. Denies any fevers, CP, nausea, vomiting or diarrhea. 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 Nephrology was consulted of hypocalcemia, electrolyte imbalance, and CKD, Was found to have a calcium level of 6.6, potassium level of 2.8, creatinine of 1.74 and GFR of 37 ml/min. Patient drinks 12 oz of 94 proof GIN daily. Additional Remarks Patient is alert remains confused. Mild SOB and lower extremity edema. (Raysa Bhakta) Review of Systems Respiratory Lungs: SOB (Raysa Bhakta) Cardiovascular Cardiac: Edema (Raysa Bhakta) Gastrointestinal GI Remarks Denies abdominal pain (Raysa Bhakta) Objective Data Data 10/16/17 10/17/17 19:00 07:00 Output Total 250 ml Balance -250 ml Output Urine Total 250 ml Vital Signs Date Time Temp Pulse Resp B/P (MAP) Pulse Ox O2 Delivery O2 Flow Rate FiO2 10/16/17 08:00 97.5 64 17 140/67 (91) 98 10/16/17 04:30 97 Nasal Cannula 2.00 10/16/17 04:28 97.8 61 18 165/77 (106) 99 10/16/17 00:41 97.1 111 20 145/90 (108) 98 10/15/17 23:00 70 10/15/17 20:28 99 Nasal Cannula 1.00 10/15/17 20:00 97.0 69 19 145/72 (96) 96 10/15/17 16:00 96.9 73 18 171/72 (105) 97 10/15/17 12:23 95 Nasal Cannula 2.00 10/15/17 12:18 88 21 10/15/17 12:00 98.0 87 20 158/78 (104) 97 (Raysa Bhakta) -: 10/16/17 0402 10/16/17 0402 Physical Exam General Appearance: Anxious Appearance Remarks confused (Raysa Bhakta) Eyes Eye Exam: Pupils Equal (Raysa Bhakta) Pulmonary Resp Exam: Rhonchi, Sputum, Decreased Bases (Raysa Bhakta) Cardiology CV Exam: Regular (Raysa Bhakta) Gastrointestinal/Abdomen GI Exam: Soft, Non-Tender, Bowel Sounds Present (Raysa Bhakta) Genitourinary Exam: Flank Non-Tender (Raysa Bhakta) Integumentary Skin Exam: Clear, Warm Skin Remarks bruising present (Raysa Bhakta) Extremeties Extremities Exam: Moderate Edema (Raysa Bhakta) Neurologic Neuro Exam: Alert, Awake (Raysa Bhakta) Assessment/Plan Problem List: (1) Chronic renal disease ICD Codes: N18.9 - Chronic kidney disease Status: Acute Plan: Patient with history of right partial nephrectomy for tumor. Creatinine is 1.82 and GFR 37 ml/min. This is most likely patients baseline. Most likely has CKD from HTN or renal vascular disease Patient has BERE, possibly pre renal or ATN. Renal US : mildly echogenic which can be seen with early medical renal disease, possible nonobstructing calculi in the right kidney, and left sided renal cysts. Non Oliguiric Proteinurea noted Plan Creatinine stable Will monitor labs and UOP. Continue IVF if PO intake improves recommend to discontinue (2) Disorder of electrolytes ICD Codes: E87.8 - Other disorders of electrolyte and fluid balance, not elsewhere classified Status: Acute Plan: Calcium found to be at 6.6 and Potassium of 2.8 on admission Patient has received replacement and now WNL (3) COPD exacerbation ICD Codes: J44.1 - COPD exacerbation Status: Acute Plan: Continue O2 Mild SOB (4) Lactic acidosis ICD Codes: E87.2 - Acidosis Status: Acute Plan: Resolved (5) Hypertension ICD Codes: I10 - Essential (primary) hypertension Status: Acute Plan: Well controlled (6) Weakness ICD Codes: R53.1 - Weakness Status: Acute Plan: Patient is very deconditioned and plan is for rehab (Raysa Bhakta) Problem List: (1) Chronic renal disease ICD Codes: N18.9 - Chronic kidney disease Status: Acute Plan: Patient with history of right partial nephrectomy for tumor. Creatinine is 1.82 and GFR 37 ml/min. This is most likely patients baseline. Most likely has CKD from HTN or renal vascular disease Patient has BERE, possibly pre renal or ATN. Renal US : mildly echogenic which can be seen with early medical renal disease, possible nonobstructing calculi in the right kidney, and left sided renal cysts. Non Oliguric Proteinuria noted Plan Creatinine stable Will monitor labs and UOP. Continue IVF if PO intake improves recommend to discontinue. Patient seen and examined, agree with above. Creatinine improve, will see PRN as needed. (2) Disorder of electrolytes ICD Codes: E87.8 - Other disorders of electrolyte and fluid balance, not elsewhere classified Status: Acute Plan: Calcium found to be at 6.6 and Potassium of 2.8 on admission Patient has received replacement and now WNL (3) COPD exacerbation ICD Codes: J44.1 - COPD exacerbation Status: Acute Plan: Continue O2 Mild SOB (4) Lactic acidosis ICD Codes: E87.2 - Acidosis Status: Acute Plan: Resolved (5) Hypertension ICD Codes: I10 - Essential (primary) hypertension Status: Acute Plan: Well controlled (6) Weakness ICD Codes: R53.1 - Weakness Status: Acute Plan: Patient is very deconditioned and plan is for rehab (Roberto Benitez MD) Raysa Bhakta Oct 16, 2017 10:42 Roberto Benitez MD Oct 16, 2017 21:12
--- NOTE | 2017-10-16 11:41 | HHI.PR ---
Subjective Remarks Sleepy, but more clear today Objective Vital Signs Date Time Temp Pulse Resp B/P (MAP) Pulse Ox O2 Delivery O2 Flow Rate FiO2 10/16/17 08:00 97.5 64 17 140/67 (91) 98 10/16/17 04:30 97 Nasal Cannula 2.00 10/16/17 04:28 97.8 61 18 165/77 (106) 99 10/16/17 00:41 97.1 111 20 145/90 (108) 98 10/15/17 23:00 70 10/15/17 20:28 99 Nasal Cannula 1.00 10/15/17 20:00 97.0 69 19 145/72 (96) 96 10/15/17 16:00 96.9 73 18 171/72 (105) 97 10/15/17 12:23 95 Nasal Cannula 2.00 10/15/17 12:18 88 21 10/15/17 12:00 98.0 87 20 158/78 (104) 97 I/O 10/15/17 10/15/17 10/15/17 10/16/17 10/16/17 10/16/17 07:00 15:00 23:00 07:00 15:00 23:00 Intake Total 1580 ml 300 ml Output Total 800 ml 150 ml 1800 ml 750 ml 250 ml Balance 780 ml -150 ml -1500 ml -750 ml -250 ml Intake Oral 480 ml 300 ml IV Total 1100 ml Output Urine Total 800 ml 150 ml 1800 ml 750 ml 250 ml # Voids 2 # Bowel Movements 0 0 Result Diagram: 10/16/17 0402 10/16/17 0402 Imaging Laboratory Tests Test 10/14/17 03:55 10/14/17 19:00 10/15/17 11:02 10/16/17 04:02 Red Blood Count 4.02 MIL/MM3 (4.50-5.90) 4.02 MIL/MM3 (4.50-5.90) 4.13 MIL/MM3 (4.50-5.90) Mean Corpuscular Volume 101.4 FL (80.0-100.0) 101.6 FL (80.0-100.0) 102.3 FL (80.0-100.0) Mean Corpuscular Hemoglobin 35.0 PG (27.0-34.0) 35.4 PG (27.0-34.0) 35.0 PG (27.0-34.0) Platelet Count 113 TH/MM3 (150-450) 107 TH/MM3 (150-450) 98 TH/MM3 (150-450) Neutrophils (%) (Auto) 84.7 % (16.0-70.0) 92.9 % (16.0-70.0) 91.9 % (16.0-70.0) Lymphocytes (%) (Auto) 7.4 % (9.0-44.0) 2.4 % (9.0-44.0) 3.9 % (9.0-44.0) Lymphocytes # (Auto) 0.5 TH/MM3 (1.0-4.8) 0.1 TH/MM3 (1.0-4.8) 0.2 TH/MM3 (1.0-4.8) Creatinine 1.31 MG/DL (0.60-1.30) 1.46 MG/DL (0.60-1.30) Random Glucose 125 MG/DL (74-106) 166 MG/DL (74-106) 107 MG/DL (74-106) Total Protein 5.8 GM/DL (6.4-8.2) Albumin 3.0 GM/DL (3.4-5.0) Chloride Level 108 MEQ/L (98-107) Estimat Glomerular Filtration Rate 53 ML/MIN (>89) 47 ML/MIN (>89) 59 ML/MIN (>89) 25-Hydroxy Vitamin D Total 25.5 ng/ML (30-100) Urine Protein 30 mg/dL (NEG-TRACE) Urine Occult Blood TRACE (NEG) Blood Urea Nitrogen 22 MG/DL (7-18) 19 MG/DL (7-18) Platelet Estimate LOW (NORMAL) Anion Gap 4 MEQ/L (5-15) Objective Remarks GENERAL: This is a well-nourished, elderly male resting in bed on 4 liters SKIN: No rashes, ecchymotic area to B/L UE with skin tear to rue. HEAD: Atraumatic. Normocephalic. No temporal or scalp tenderness. EYES: Pupils equal round and reactive. Extraocular motions intact. No scleral icterus. No injection or drainage. ENT: Nose without bleeding, purulent drainage or septal hematoma. Throat without erythema, tonsillar hypertrophy or exudate. Uvula midline. Airway patent. NECK: Trachea midline. No JVD or lymphadenopathy. Supple, nontender, no meningeal signs. CARDIOVASCULAR: Regular rate and rhythm without murmurs, gallops, or rubs. RESPIRATORY: Breath sounds equal bilaterally expiratory wheezes, coarse GASTROINTESTINAL: Abdomen soft, non-tender, nondistended. No hepato-splenomegaly , or palpable masses. No guarding. MUSCULOSKELETAL: Right knee abrasion, trace edema NEUROLOGICAL: sleepy, easily mentation clearer. Medications and IVs Current Medications Medications (Trade) Dose Ordered Sig/Nayeli Route Start Time Stop Time Status Last Admin (Proair Hfa Inh) 2 puff Q6HR INH 10/13/17 06:00 10/16/17 05:26 (Norvasc) 10 mg DAILY PO 10/13/17 09:00 10/16/17 09:56 (Cardura) 8 mg DAILY PO 10/13/17 09:00 10/16/17 09:56 (Proscar) 5 mg DAILY PO 10/13/17 09:00 10/16/17 09:55 (Breo Ellipta 200-25 Inh) 1 puff DAILY INH 10/13/17 09:00 10/16/17 09:58 (Prinivil) 5 mg DAILY PO 10/13/17 09:00 10/16/17 09:56 (Elvie-Colace) 1 tab BID PO 10/13/17 09:00 10/16/17 09:56 (Flomax) 0.4 mg HS PO 10/13/17 21:00 10/15/17 22:20 (Desyrel) 100 mg HS PO 10/13/17 21:00 10/15/17 22:21 (NS Flush) 2 ml UNSCH PRN IV FLUSH 10/13/17 06:00 (NS Flush) 2 ml BID IV FLUSH 10/13/17 09:00 10/16/17 09:57 (Heparin Inj) 5,000 units Q12H SQ 10/13/17 06:00 10/16/17 05:26 (Narcan Inj) 0.4 mg UNSCH PRN IV PUSH 10/13/17 06:00 (Oscal) 500 mg Q12HR PO 10/13/17 09:00 10/16/17 09:56 (Mag-Ox) 400 mg Q12HR PO 10/13/17 09:00 10/16/17 09:56 (Pill Splitter) 1 ea UNSCH PRN OTHER 10/13/17 06:15 (Duoneb Neb) 1 ampule Q4HR NEB NEB 10/13/17 12:00 10/15/17 20:25 (Duoneb Neb) 1 ampule Q2HR NEB PRN NEB 10/13/17 09:30 Sodium Chloride 1,000 ml @ 100 mls/hr Q10H IV 10/13/17 15:00 10/16/17 09:55 Ceftriaxone Sodium 1000 mg/ Sodium Chloride 100 ml @ 200 mls/hr Q24H IV 10/14/17 05:00 10/16/17 05:06 (Symbicort 160-4.5 Mcg Inh) 2 puff Q12HR INH 10/13/17 21:00 10/16/17 09:57 (Apresoline) 10 mg Q6HR PRN PO 10/14/17 08:30 (Habitrol 21 Mg Patch.24 Hr) 1 patch DAILY T-DERMAL 10/15/17 09:00 10/16/17 10:04 Miscellaneous Information 1 DAILY T-DERMAL 10/15/17 09:00 10/15/17 09:00 (Ativan) 1 mg Q6HR PO 10/14/17 12:00 10/16/17 05:25 (Lopressor) 25 mg BID PO 10/14/17 21:00 10/16/17 09:56 (Zithromax) 500 mg Q24H PO 10/14/17 20:00 10/15/17 22:30 (Haldol Inj) 5 mg Q6H PRN IM 10/15/17 09:45 (Ativan) 1 mg Q4H PRN PO 10/15/17 10:00 (Ativan Inj) 1 mg Q4H PRN IV PUSH 10/15/17 10:00 10/15/17 18:24 (Ativan) 2 mg Q2H PRN PO 10/15/17 10:00 (Ativan Inj) 2 mg Q2H PRN IV PUSH 10/15/17 10:00 10/15/17 10:36 (Ativan Inj) 2 mg Q1H PRN IV PUSH 10/15/17 10:00 10/15/17 12:02 (Ativan Inj) 2 mg Q15M PRN IV PUSH 10/15/17 10:00 (Romazicon Inj) 0.2 mg Q1M PRN IV PUSH 10/15/17 10:00 (Thiamine Inj) 100 mg DAILY IM 10/16/17 09:00 10/20/17 08:59 10/16/17 09:58 (SoluMEDROL INJ) 40 mg BID IV PUSH 10/15/17 21:00 10/16/17 09:57 Assessment and Plan Problem List: (1) Alcohol withdrawal ICD Codes: F10.239 - Alcohol dependence with withdrawal, unspecified Plan: Still has shakes. agitation better (2) COPD exacerbation ICD Codes: J44.1 - COPD exacerbation Status: Acute Plan: Pulmonary following Keep sats >90. Trevor nebs, Solu Medrol. (3) Infiltrate noted on imaging study ICD Codes: R93.8 - Abnormal findings on diagnostic imaging of other specified body structures Plan: Pulmonary following, Rocephin in q24, Afebrile Will get ST to do swallow eval (4) Chronic renal disease ICD Codes: N18.9 - Chronic kidney disease Status: Acute Plan: Kidney functions improving ,History of nephrectomy r/t carcinoma. Renal following. Avoid nephro toxins, creatinine 1.2 this am. (5) Hypertension ICD Codes: I10 - Essential (primary) hypertension Status: Acute Plan: B/P better today systolic in 140's Cont home medications,PRN added for systolic >160 diastolic >90 (6) Weakness ICD Codes: R53.1 - Weakness Status: Acute Plan: PT eval and treat CM consult for rehab placement at [facility] Oct 16, 2017 11:41
--- NOTE | 2017-10-16 19:13 | HHI.PR ---
Subjective Remarks Alert today and less confused. Cooperative and taking his diet. No cough and less wheezing. On O2 2 L. No Fever. Objective Vital Signs Date Time Temp Pulse Resp B/P (MAP) Pulse Ox O2 Delivery O2 Flow Rate FiO2 10/16/17 16:00 98 Nasal Cannula 3.00 10/16/17 16:00 97.5 74 18 146/69 (94) 95 10/16/17 15:25 73 10/16/17 12:00 95 Nasal Cannula 3.00 10/16/17 12:00 97.5 85 18 134/72 (92) 95 10/16/17 11:47 98 3.00 10/16/17 08:00 98 Nasal Cannula 3.00 10/16/17 08:00 97.5 64 17 140/67 (91) 98 10/16/17 04:30 97 Nasal Cannula 2.00 10/16/17 04:28 97.8 61 18 165/77 (106) 99 10/16/17 00:41 97.1 111 20 145/90 (108) 98 10/15/17 23:00 70 10/15/17 20:28 99 Nasal Cannula 1.00 10/15/17 20:00 97.0 69 19 145/72 (96) 96 I/O 10/15/17 10/15/17 10/15/17 10/16/17 10/16/17 10/16/17 07:00 15:00 23:00 07:00 15:00 23:00 Intake Total 1580 ml 300 ml 240 ml Output Total 800 ml 150 ml 1800 ml 750 ml 250 ml 250 ml Balance 780 ml -150 ml -1500 ml -750 ml -250 ml -10 ml Intake Oral 480 ml 300 ml 240 ml IV Total 1100 ml Output Urine Total 800 ml 150 ml 1800 ml 750 ml 250 ml 250 ml # Voids 2 # Bowel Movements 0 0 Result Diagram: 10/16/1740110/16/172 Objective Remarks GENERAL: This elderly, averagely built, white male is alert, in no acute distress. Pallor noted. No cyanosis. There is no peripheral edema. No lymphadenopathy. Skin turgor is normal HEENT: Head normocephalic. Pupils are reactive and equal. Tongue is moist. Nasal mucosa clear. NECK: No bruits. Small venous distension while lying flat. Trachea midline. CHEST: Equal movements with occ wheezes throughout both lung carrizales. Crackles at the left base. HEART: Sounds were regular S1 and S2 with no murmur, no S3. ABDOMEN: Soft, protuberant without masses. No organomegaly or tenderness. Bowel sounds are active. EXTREMITIES: Decreased peripheral pulses and minimal edema. Reflexes are 1+. The patient does move his extremities . CRANIAL NERVES: Grossly intact. RECTAL: Exam is deferred. SKIN: Cool and dry. Assessment and Plan Assessment and Plan IMPRESSION: 1. Chronic obstructive pulmonary disease with acute exacerbation. 2. Dehydration and acute kidney injury. 3. History of hypertension. 4. Left basilar pneumonia. Plan : 1. Continue Rocephin 1 G IV daily X3. 2. D/C Solumedrol 3. O2 at 3 L. 4. Zithromax ,500 mg po daily X2 5.Duoneb nebs qid. 6. Ativan .5 mg Q6H prn 7. CBC, BMP in am 8. Thiamine 100 mg daily 9. Add Prednisone 10 mg bid 10. PT Evaluation Vaibhav Tubbs MD Oct 16, 2017 19:13
[2017-10-16] MEDS: AZITHROMYCIN 250 MG TAB PO SCH (20:30)
[2017-10-16] MEDS: TAMSULOSIN HCL 0.4 MG CAP PO SCH (20:31)
[2017-10-16] MEDS: predniSONE 10 MG TAB PO SCH (20:31)
[2017-10-16] MEDS: traZODone HCL 100 MG TAB PO SCH (20:31)
[2017-10-17] VITALS (10 sets, daily range): BP systolic 131–179; BP diastolic 61–81; PULSE 72–96; RESP 18–30; TEMP 97.6–98.2; O2SAT 91–96
[2017-10-17] MEDS: RESP: ALBUTEROL 2.5 MG/IPRATROPIUM 0.5 MG NEB (SCH) NEB ×3 (01:13→08:00)
[2017-10-17] MEDS: HEPARIN SODIUM - SQ 10,000 UNITS/ML VIAL SQ SCH ×2 (05:23→18:25)
[2017-10-17] MEDS: LORazepam 1 MG TAB PO SCH ×3 (05:24→18:25)
[2017-10-17] MEDS: cefTRIAXone INJ 1,000 MG in SODIUM CHLORIDE 0.9% INJ 100 ML IV SCH (05:24)
[2017-10-17] MEDS: ALBUTEROL SULFATE 90 MCG/ACT HFA 8 GM INHALER INH SCH ×3 (05:25→18:00)
[2017-10-17 05:52] LABS: AUTOMATED NEUTROPHIL # 4.7 TH/MM3 (1.8-7.7); BASOPHIL % 0.1 % (0.0-2.0); HEMATOCRIT 40.8 % (39.0-51.0); HEMOGLOBIN 13.9 GM/DL (13.0-17.0); LYMPH % 9.2 % (9.0-44.0); LYMPHOCYTE # 0.5 TH/MM3 (1.0-4.8); MEAN CELL VOLUME 102.3 FL (80.0-100.0); MEAN CORPUSCULAR HGB CONC 34.2 % (32.0-36.0); MEAN PLATELET VOLUME 9.3 FL (7.0-11.0); MONO % 10.2 % (0.0-8.0); MONOCYTE # 0.6 TH/MM3 (0-0.9); NEUT % 80.5 % (16.0-70.0); PLATELET COUNT 93 TH/MM3 (150-450); RED BLOOD COUNT 3.99 MIL/MM3 (4.50-5.90); RED CELL DISTRIBUTION WIDTH 13.3 % (11.6-17.2); WHITE BLOOD COUNT 5.8 TH/MM3 (4.0-11.0)
[2017-10-17 06:19] LABS: CALCIUM 8.7 MG/DL (8.5-10.1); CREATININE 1.42 MG/DL (0.60-1.30)
[2017-10-17] MEDS: MAGNESIUM OXIDE 400 MG TAB PO SCH ×2 (08:43→21:02)
[2017-10-17] MEDS: predniSONE 10 MG TAB PO SCH ×2 (08:43→21:02)
[2017-10-17] MEDS: DOXAZOSIN MESYLATE 4 MG TAB PO SCH (08:43)
[2017-10-17] MEDS: METOPROLOL TARTRATE 25 MG TAB PO SCH ×2 (08:43→21:02)
[2017-10-17] MEDS: LISINOPRIL 5 MG TAB PO SCH (08:43)
[2017-10-17] MEDS: DOCUSATE SODIUM 50 MG/SENNA 8.6 MG TAB PO SCH ×2 (08:43→21:01)
[2017-10-17] MEDS: CALCIUM CARBONATE 1.25 GM (CA 500 MG) TAB PO SCH ×2 (08:43→21:02)
[2017-10-17] MEDS: FINASTERIDE 5 MG TAB PO SCH (08:43)
[2017-10-17] MEDS: NICOTINE 21 MG/24 HR PATCH T-DERMAL SCH (08:44)
[2017-10-17] MEDS: REMOVE OLD PATCH T-DERMAL SCH (08:44)
[2017-10-17] MEDS: THIAMINE HCL 200 MG/2 ML VIAL IM SCH (08:45)
[2017-10-17] MEDS: SODIUM CHLORIDE 0.9% FLUSH 10 ML FLUSH IV FLUSH SCH ×2 (08:47→21:02)
[2017-10-17] MEDS: BUDESONIDE-FORMOTEROL 160/4.5 MCG INHALER INH SCH ×2 (08:47→21:02)
[2017-10-17] MEDS: FLUTICASONE 200 MCG/VILANTEROL 25 MCG INHALER INH SCH (08:47)
[2017-10-17] MEDS: SODIUM CHLOR 0.9% 1000 ML INJ 1,000 ML IV SCH ×2 (12:20→23:07)
--- NOTE | 2017-10-17 12:41 | HHI.PR ---
Subjective Remarks Wheezing with COPD exacerbation and LLL PNA. Objective Vital Signs Date Time Temp Pulse Resp B/P (MAP) Pulse Ox O2 Delivery O2 Flow Rate FiO2 10/17/17 10:04 10/17/17 08:00 97.8 95 24 165/81 (109) 91 10/17/17 07:34 90 10/17/17 07:33 Nasal Cannula 3.00 21 10/17/17 04:00 Nasal Cannula 3.00 10/17/17 04:00 97.8 72 18 131/61 (84) 95 10/17/17 00:00 Nasal Cannula 3.00 10/17/17 00:00 97.6 80 24 156/72 (100) 95 10/16/17 20:00 91 10/16/17 19:56 Nasal Cannula 3.00 10/16/17 19:56 97.8 68 22 158/72 (100) 96 10/16/17 19:44 96 Nasal Cannula 2.00 10/16/17 16:00 98 Nasal Cannula 3.00 10/16/17 16:00 97.5 74 18 146/69 (94) 95 10/16/17 15:25 73 I/O 10/16/17 10/16/17 10/16/17 10/17/17 10/17/17 10/17/17 07:00 15:00 23:00 07:00 15:00 23:00 Intake Total 240 ml 240 ml Output Total 750 ml 250 ml 250 ml 600 ml Balance -750 ml -250 ml -10 ml -360 ml Intake Oral 240 ml 240 ml Output Urine Total 750 ml 250 ml 250 ml 600 ml Result Diagram: 10/17/17 0502 10/17/17 0502 Imaging Last Impressions Chest X-Ray 10/15/17 0600 Signed Impressions: Service Date/Time: October 05:32 - CONCLUSION: 1. Interval development of left lower lobe airspace consolidation concerning for pneumonia or aspiration in the appropriate clinical setting. Pedro Bunn MD Chest CT 10/13/17 1313 Signed Impressions: Service Date/Time: Friday, October 13, 2017 15:15 - CONCLUSION: 1. Left upper lobe and left lower lobe consolidation likely infiltrate. Recommend treatment and followup to resolution. 2. Mild emphysema without mass or concerning nodule. 3. Minimal coronary artery calcifications. Allen Alexander MD Renal Ultrasound 10/13/17 0000 Signed Impressions: Service Date/Time: Friday, October 13, 2017 12:59 - CONCLUSION: 1. Kidneys are mildly echogenic which can be seen with early medical renal disease. 2. Possible nonobstructing calculi in the right kidney. 3. Left sided renal cysts. Allen Alexander MD Lower Extremity Ultrasound 10/13/17 0000 Signed Impressions: Service Date/Time: Friday, October 13, 2017 04:08 - CONCLUSION: 1. No sonographic evidence for right lower extremity DVT. Pedro Bunn MD Ankle X-Ray 10/13/17 Signed Impressions: Service Date/Time: Friday, October 13, 2017 03:58 - CONCLUSION: 1. Diffuse soft tissue swelling without radiopaque foreign bodies, acute fracture or bony erosion. Pedro Bunn MD Objective Remarks HEENT - alert, AT/NC Resp - Scattered wheezes with Left base rales; CV - RRR without murmur, rub or gallop Abd - Soft and nontender MS - Abrasion to right knee with trace edema BLE Medications and IVs Current Medications Medications (Trade) Dose Ordered Sig/Nayeli Route Start Time Stop Time Status Last Admin (Proair Hfa Inh) 2 puff Q6HR INH 10/13/17 06:00 10/17/17 11:39 (Norvasc) 10 mg DAILY PO 10/13/17 09:00 10/17/17 08:43 (Cardura) 8 mg DAILY PO 10/13/17 09:00 10/17/17 08:43 (Proscar) 5 mg DAILY PO 10/13/17 09:00 10/17/17 08:43 (Breo Ellipta 200-25 Inh) 1 puff DAILY INH 10/13/17 09:00 10/17/17 08:47 (Prinivil) 5 mg DAILY PO 10/13/17 09:00 10/17/17 08:43 (Elvie-Colace) 1 tab BID PO 10/13/17 09:00 10/17/17 08:43 (Flomax) 0.4 mg HS PO 10/13/17 21:00 10/16/17 20:31 (Desyrel) 100 mg HS PO 10/13/17 21:00 10/16/17 20:31 (NS Flush) 2 ml UNSCH PRN IV FLUSH 10/13/17 06:00 (NS Flush) 2 ml BID IV FLUSH 10/13/17 09:00 10/16/17 20:31 (Heparin Inj) 5,000 units Q12H SQ 10/13/17 06:00 10/17/17 05:23 (Narcan Inj) 0.4 mg UNSCH PRN IV PUSH 10/13/17 06:00 (Oscal) 500 mg Q12HR PO 10/13/17 09:00 10/17/17 08:43 (Mag-Ox) 400 mg Q12HR PO 10/13/17 09:00 10/17/17 08:43 (Pill Splitter) 1 ea UNSCH PRN OTHER 10/13/17 06:15 (Duoneb Neb) 1 ampule Q2HR NEB PRN NEB 10/13/17 09:30 Sodium Chloride 1,000 ml @ 100 mls/hr Q10H IV 10/13/17 15:00 10/17/17 12:20 Ceftriaxone Sodium 1000 mg/ Sodium Chloride 100 ml @ 200 mls/hr Q24H IV 10/14/17 05:00 10/17/17 05:24 (Symbicort 160-4.5 Mcg Inh) 2 puff Q12HR INH 10/13/17 21:00 10/17/17 08:47 (Apresoline) 10 mg Q6HR PRN PO 10/14/17 08:30 (Habitrol 21 Mg Patch.24 Hr) 1 patch DAILY T-DERMAL 10/15/17 09:00 10/17/17 08:44 Miscellaneous Information 1 DAILY T-DERMAL 10/15/17 09:00 10/17/17 08:44 (Ativan) 1 mg Q6HR PO 10/14/17 12:00 10/17/17 05:24 (Lopressor) 25 mg BID PO 10/14/17 21:00 10/17/17 08:43 (Zithromax) 500 mg Q24H PO 10/14/17 20:00 10/16/17 20:30 (Haldol Inj) 5 mg Q6H PRN IM 10/15/17 09:45 (Ativan) 1 mg Q4H PRN PO 10/15/17 10:00 (Ativan Inj) 1 mg Q4H PRN IV PUSH 10/15/17 10:00 10/15/17 18:24 (Ativan) 2 mg Q2H PRN PO 10/15/17 10:00 (Ativan Inj) 2 mg Q2H PRN IV PUSH 10/15/17 10:00 10/15/17 10:36 (Ativan Inj) 2 mg Q1H PRN IV PUSH 10/15/17 10:00 10/15/17 12:02 (Ativan Inj) 2 mg Q15M PRN IV PUSH 10/15/17 10:00 (Romazicon Inj) 0.2 mg Q1M PRN IV PUSH 10/15/17 10:00 (Thiamine Inj) 100 mg DAILY IM 10/16/17 09:00 10/20/17 08:59 10/17/17 08:45 (Deltasone) 10 mg BID PO 10/16/17 21:00 10/23/17 20:59 10/17/17 08:43 Assessment and Plan Problem List: (1) Left lower lobe pneumonia ICD Codes: J18.1 - Lobar pneumonia, unspecified organism Status: Acute Plan: F/U Pulm recommendation and cont IV antibiotics (2) Alcohol abuse ICD Codes: F10.10 - Alcohol abuse Status: Chronic Plan: Cont support as Sx improve (3) COPD exacerbation ICD Codes: J44.1 - COPD exacerbation Status: Acute (4) Hypertension ICD Codes: I10 - Essential (primary) hypertension Status: Chronic Plan: Cont current regimen with PRN meds for SBP over 160 mm/Hg (5) Chronic renal disease ICD Codes: N18.9 - Chronic kidney disease Status: Chronic Plan: Avoid nephrotoxic agents and cont to monitor closely Assessment and Plan Cont treatment and F/U [employer] study and recommendations. Cont antibiotics and Pulm recommendations. Discussed Condition With Patient Discharge Planning Home when cleared by Pulm Problem Qualifiers (1) Left lower lobe pneumonia: Qualified Codes: J69.0 - Pneumonitis due to inhalation of food and vomit (2) Hypertension: Qualified Codes: I10 - Essential (primary) hypertension (3) Chronic renal disease: Qualified Codes: N18.3 - Chronic kidney disease, stage 3 (moderate) Donovan Villeda Oct 17, 2017 12:41
--- NOTE | 2017-10-17 15:32 | HHI.PR ---
Subjective Remarks . Sleepy and on O2 3L No cough and less wheezing. No Fever. Objective Vital Signs Date Time Temp Pulse Resp B/P (MAP) Pulse Ox O2 Delivery O2 Flow Rate FiO2 10/17/17 14:12 10/17/17 12:00 98.2 89 25 146/64 (91) 94 10/17/17 10:04 10/17/17 08:00 97.8 95 24 165/81 (109) 91 10/17/17 07:34 90 10/17/17 07:33 Nasal Cannula 3.00 21 10/17/17 04:00 Nasal Cannula 3.00 10/17/17 04:00 97.8 72 18 131/61 (84) 95 10/17/17 00:00 Nasal Cannula 3.00 10/17/17 00:00 97.6 80 24 156/72 (100) 95 10/16/17 20:00 91 10/16/17 19:56 Nasal Cannula 3.00 10/16/17 19:56 97.8 68 22 158/72 (100) 96 10/16/17 19:44 96 Nasal Cannula 2.00 10/16/17 16:00 98 Nasal Cannula 3.00 10/16/17 16:00 97.5 74 18 146/69 (94) 95 I/O 10/16/17 10/16/17 10/16/17 10/17/17 10/17/17 10/17/17 07:00 15:00 23:00 07:00 15:00 23:00 Intake Total 240 ml 240 ml Output Total 750 ml 250 ml 250 ml 600 ml Balance -750 ml -250 ml -10 ml -360 ml Intake Oral 240 ml 240 ml Output Urine Total 750 ml 250 ml 250 ml 600 ml Result Diagram: 10/17/17 0502 10/17/17 0502 Objective Remarks GENERAL: This elderly, averagely built, white male is in no acute distress. Pallor noted. No cyanosis. There is no peripheral edema. No lymphadenopathy. Skin turgor is normal HEENT: Head normocephalic. Pupils are reactive and equal. Tongue is moist. Nasal mucosa clear. NECK: No bruits. Small venous distension while lying flat. Trachea midline. CHEST: Equal movements with occ wheezes throughout both lung carrizales. Crackles at the left base. HEART: Sounds were regular S1 and S2 with no murmur, no S3. ABDOMEN: Soft, protuberant without masses. No organomegaly or tenderness. Bowel sounds are active. EXTREMITIES: Decreased peripheral pulses and minimal edema. Reflexes are 1+. The patient does move his extremities . CRANIAL NERVES: Grossly intact. RECTAL: Exam is deferred. SKIN: Cool and dry. Assessment and Plan Assessment and Plan IMPRESSION: 1. Chronic obstructive pulmonary disease with acute exacerbation. 2. Dehydration and acute kidney injury. 3. History of hypertension. 4. Left basilar pneumonia. Plan : 1. Continue Rocephin 1 G IV daily X3. 2. CXR in am 3. O2 at 3 L. 4. Zithromax ,500 mg po daily X1 5.Duoneb nebs qid. 6. Ativan .5 mg Q6H prn 7. CBC, BMP in am 8. Thiamine 100 mg daily 9. Cont Prednisone 10 mg bid 10. PT Evaluation Vaibhav Tubbs MD Oct 17, 2017 15:32
[2017-10-17] MEDS: traZODone HCL 100 MG TAB PO SCH (21:01)
[2017-10-17] MEDS: AZITHROMYCIN 250 MG TAB PO SCH (21:01)
[2017-10-17] MEDS: TAMSULOSIN HCL 0.4 MG CAP PO SCH (21:01)
[2017-10-18] VITALS (7 sets, daily range): BP systolic 165–187; BP diastolic 74–86; PULSE 75–88; RESP 18–26; TEMP 97.5–98.7; O2SAT 92–100
[2017-10-18] MEDS: cefTRIAXone INJ 1,000 MG in SODIUM CHLORIDE 0.9% INJ 100 ML IV SCH (05:18)
[2017-10-18] MEDS: HEPARIN SODIUM - SQ 10,000 UNITS/ML VIAL SQ SCH ×2 (05:18→17:28)
[2017-10-18] MEDS: LORazepam 1 MG TAB PO SCH ×5 (05:19→23:24)
[2017-10-18] MEDS: ALBUTEROL SULFATE 90 MCG/ACT HFA 8 GM INHALER INH SCH ×5 (05:19→23:24)
[2017-10-18] MEDS: DOCUSATE SODIUM 50 MG/SENNA 8.6 MG TAB PO SCH ×2 (08:38→21:42)
[2017-10-18] MEDS: METOPROLOL TARTRATE 25 MG TAB PO SCH ×2 (08:38→21:42)
[2017-10-18] MEDS: LISINOPRIL 5 MG TAB PO SCH (08:39)
[2017-10-18] MEDS: predniSONE 10 MG TAB PO SCH ×2 (08:39→21:42)
[2017-10-18] MEDS: DOXAZOSIN MESYLATE 4 MG TAB PO SCH (08:40)
[2017-10-18] MEDS: FINASTERIDE 5 MG TAB PO SCH (08:40)
[2017-10-18] MEDS: CALCIUM CARBONATE 1.25 GM (CA 500 MG) TAB PO SCH ×2 (08:41→21:42)
[2017-10-18] MEDS: MAGNESIUM OXIDE 400 MG TAB PO SCH ×2 (08:41→21:42)
[2017-10-18] MEDS: THIAMINE HCL 200 MG/2 ML VIAL IM SCH (08:42)
[2017-10-18] MEDS: SODIUM CHLORIDE 0.9% FLUSH 10 ML FLUSH IV FLUSH SCH ×2 (08:42→21:00)
[2017-10-18] MEDS: NICOTINE 21 MG/24 HR PATCH T-DERMAL SCH (08:42)
[2017-10-18] MEDS: REMOVE OLD PATCH T-DERMAL SCH (08:43)
[2017-10-18] MEDS: SODIUM CHLOR 0.9% 1000 ML INJ 1,000 ML IV SCH ×2 (08:43→20:09)
[2017-10-18] MEDS: FLUTICASONE 200 MCG/VILANTEROL 25 MCG INHALER INH SCH (08:44)
[2017-10-18] MEDS: BUDESONIDE-FORMOTEROL 160/4.5 MCG INHALER INH SCH ×2 (08:44→21:45)
--- NOTE | 2017-10-18 13:48 | HHI.PR ---
Subjective Remarks Wheezing slightly improved with acute COPD exacerbation and LLL PNA. Objective Vital Signs Date Time Temp Pulse Resp B/P (MAP) Pulse Ox O2 Delivery O2 Flow Rate FiO2 10/18/17 09:23 95 21 10/18/17 08:45 2.00 10/18/17 07:43 97.5 84 18 173/76 (108) 95 10/18/17 04:32 97.9 82 20 165/78 (107) 94 10/18/17 00:05 98.2 75 26 182/86 (118) 95 10/17/17 20:59 96 Nasal Cannula 3.00 10/17/17 20:11 97.8 96 24 179/77 (111) 93 10/17/17 20:11 Nasal Cannula 10/17/17 20:00 85 10/17/17 18:14 10/17/17 16:00 97.9 86 30 167/72 (103) 91 10/17/17 15:35 73 10/17/17 14:12 I/O 10/17/17 10/17/17 10/17/17 10/18/17 10/18/17 10/18/17 07:00 15:00 23:00 07:00 15:00 23:00 Intake Total 240 ml 960 ml Output Total 600 ml 1800 ml 1350 ml Balance -360 ml -840 ml -1350 ml Intake Oral 240 ml 960 ml Output Urine Total 600 ml 1800 ml 1350 ml # Bowel Movements 1 Result Diagram: 10/17/17 0502 10/17/17 0502 Imaging Last Impressions Chest X-Ray 10/15/17 0600 Signed Impressions: Service Date/Time: October 05:32 - CONCLUSION: 1. Interval development of left lower lobe airspace consolidation concerning for pneumonia or aspiration in the appropriate clinical setting. Pedro Bunn MD Chest CT 10/13/17 1313 Signed Impressions: Service Date/Time: Friday, October 13, 2017 15:15 - CONCLUSION: 1. Left upper lobe and left lower lobe consolidation likely infiltrate. Recommend treatment and followup to resolution. 2. Mild emphysema without mass or concerning nodule. 3. Minimal coronary artery calcifications. Allen Alexander MD Renal Ultrasound 10/13/17 0000 Signed Impressions: Service Date/Time: Friday, October 13, 2017 12:59 - CONCLUSION: 1. Kidneys are mildly echogenic which can be seen with early medical renal disease. 2. Possible nonobstructing calculi in the right kidney. 3. Left sided renal cysts. Allen Alexander MD Lower Extremity Ultrasound 10/13/17 0000 Signed Impressions: Service Date/Time: Friday, October 13, 2017 04:08 - CONCLUSION: 1. No sonographic evidence for right lower extremity DVT. Pedro Bunn MD Ankle X-Ray 10/13/17 0000 Signed Impressions: Service Date/Time: Friday, October 13, 2017 03:58 - CONCLUSION: 1. Diffuse soft tissue swelling without radiopaque foreign bodies, acute fracture or bony erosion. Pedro Bunn MD Objective Remarks General - is at bedside and points out he is still confused compared to baseline HEENT - alert, AT/NC Resp - Scattered wheezes with Left base rales; CV - RRR without murmur, rub or gallop Abd - Soft and nontender MS - Abrasion to right knee with trace edema BLE Medications and IVs Current Medications Medications (Trade) Dose Ordered Sig/Nayeli Route Start Time Stop Time Status Last Admin (Proair Hfa Inh) 2 puff Q6HR INH 10/13/17 06:00 10/18/17 12:00 (Norvasc) 10 mg DAILY PO 10/13/17 09:00 10/18/17 08:38 (Cardura) 8 mg DAILY PO 10/13/17 09:00 10/18/17 08:40 (Proscar) 5 mg DAILY PO 10/13/17 09:00 10/18/17 08:40 (Breo Ellipta 200-25 Inh) 1 puff DAILY INH 10/13/17 09:00 10/18/17 08:44 (Prinivil) 5 mg DAILY PO 10/13/17 09:00 10/18/17 08:39 (Elvie-Colace) 1 tab BID PO 10/13/17 09:00 10/18/17 08:38 (Flomax) 0.4 mg HS PO 10/13/17 21:00 10/17/17 21:01 (Desyrel) 100 mg HS PO 10/13/17 21:00 10/17/17 21:01 (NS Flush) 2 ml UNSCH PRN IV FLUSH 10/13/17 06:00 (NS Flush) 2 ml BID IV FLUSH 10/13/17 09:00 10/18/17 08:42 (Heparin Inj) 5,000 units Q12H SQ 10/13/17 06:00 10/18/17 05:18 (Narcan Inj) 0.4 mg UNSCH PRN IV PUSH 10/13/17 06:00 (Oscal) 500 mg Q12HR PO 10/13/17 09:00 10/18/17 08:41 (Mag-Ox) 400 mg Q12HR PO 10/13/17 09:00 10/18/17 08:41 (Pill Splitter) 1 ea UNSCH PRN OTHER 10/13/17 06:15 (Duoneb Neb) 1 ampule Q2HR NEB PRN NEB 10/13/17 09:30 Sodium Chloride 1,000 ml @ 100 mls/hr Q10H IV 10/13/17 15:00 10/18/17 08:43 Ceftriaxone Sodium 1000 mg/ Sodium Chloride 100 ml @ 200 mls/hr Q24H IV 10/14/17 05:00 10/18/17 05:18 (Symbicort 160-4.5 Mcg Inh) 2 puff Q12HR INH 10/13/17 21:00 10/18/17 08:44 (Apresoline) 10 mg Q6HR PRN PO 10/14/17 08:30 (Habitrol 21 Mg Patch.24 Hr) 1 patch DAILY T-DERMAL 10/15/17 09:00 10/18/17 08:42 Miscellaneous Information 1 DAILY T-DERMAL 10/15/17 09:00 10/18/17 08:43 (Ativan) 1 mg Q6HR PO 10/14/17 12:00 10/17/17 18:25 (Lopressor) 25 mg BID PO 10/14/17 21:00 10/18/17 08:38 (Zithromax) 500 mg Q24H PO 10/14/17 20:00 10/17/17 21:01 (Haldol Inj) 5 mg Q6H PRN IM 10/15/17 09:45 (Ativan) 1 mg Q4H PRN PO 10/15/17 10:00 10/18/17 08:54 (Ativan Inj) 1 mg Q4H PRN IV PUSH 10/15/17 10:00 10/15/17 18:24 (Ativan) 2 mg Q2H PRN PO 10/15/17 10:00 (Ativan Inj) 2 mg Q2H PRN IV PUSH 10/15/17 10:00 10/15/17 10:36 (Ativan Inj) 2 mg Q1H PRN IV PUSH 10/15/17 10:00 10/15/17 12:02 (Ativan Inj) 2 mg Q15M PRN IV PUSH 10/15/17 10:00 (Romazicon Inj) 0.2 mg Q1M PRN IV PUSH 10/15/17 10:00 (Thiamine Inj) 100 mg DAILY IM 10/16/17 09:00 10/20/17 08:59 10/18/17 08:42 (Deltasone) 10 mg BID PO 10/16/17 21:00 10/23/17 20:59 10/18/17 08:39 Assessment and Plan Problem List: (1) Left lower lobe pneumonia ICD Codes: J18.1 - Lobar pneumonia, unspecified organism Status: Acute Plan: F/U Pulm recommendation and cont IV antibiotics (2) Alcohol abuse ICD Codes: F10.10 - Alcohol abuse Status: Chronic Plan: Cont support (3) COPD exacerbation ICD Codes: J44.1 - COPD exacerbation Status: Acute Plan: F/U Pulm recommendations and cont antibiotics (4) Hypertension ICD Codes: I10 - Essential (primary) hypertension Status: Chronic Plan: Cont current regimen with PRN meds for SBP over 160 mm/Hg (5) Chronic renal disease ICD Codes: N18.9 - Chronic kidney disease Status: Chronic Plan: Avoid nephrotoxic agents and cont to monitor closely. F/U renal recommendations. Assessment and Plan Cont treatment and F/U [employer] study and recommendations. Cont antibiotics and Pulm recommendations. Discussed Condition With Discharge Planning Home when cleared by Pulm. Problem Qualifiers (1) Left lower lobe pneumonia: Qualified Codes: J69.0 - Pneumonitis due to inhalation of food and vomit (2) Hypertension: Qualified Codes: I10 - Essential (primary) hypertension (3) Chronic renal disease: Qualified Codes: N18.3 - Chronic kidney disease, stage 3 (moderate) Donovan Villeda Oct 18, 2017 13:48
--- NOTE | 2017-10-18 14:06 | HHI.PR ---
Subjective Remarks . Awake and off O2. Poor intake. No cough and wheezing. No Fever. Objective Vital Signs Date Time Temp Pulse Resp B/P (MAP) Pulse Ox O2 Delivery O2 Flow Rate FiO2 10/18/17 09:23 95 21 10/18/17 08:45 2.00 10/18/17 07:43 97.5 84 18 173/76 (108) 95 10/18/17 04:32 97.9 82 20 165/78 (107) 94 10/18/17 00:05 98.2 75 26 182/86 (118) 95 10/17/17 20:59 96 Nasal Cannula 3.00 10/17/17 20:11 97.8 96 24 179/77 (111) 93 10/17/17 20:11 Nasal Cannula 10/17/17 20:00 85 10/17/17 18:14 10/17/17 16:00 97.9 86 30 167/72 (103) 91 10/17/17 15:35 73 10/17/17 14:12 I/O 10/17/17 10/17/17 10/17/17 10/18/17 10/18/17 10/18/17 07:00 15:00 23:00 07:00 15:00 23:00 Intake Total 240 ml 960 ml Output Total 600 ml 1800 ml 1350 ml Balance -360 ml -840 ml -1350 ml Intake Oral 240 ml 960 ml Output Urine Total 600 ml 1800 ml 1350 ml # Bowel Movements 1 Result Diagram: 10/17/17 0502 10/17/17 0502 Objective Remarks GENERAL: This elderly, averagely built, white male is in no acute distress. Pallor noted. No cyanosis. There is no peripheral edema. No lymphadenopathy. Skin turgor is normal HEENT: Head normocephalic. Pupils are reactive and equal. Tongue is moist. Nasal mucosa clear. NECK: No bruits. Small venous distension while lying flat. Trachea midline. CHEST: Equal movements with occ wheezes throughout both lung carrizales. HEART: Sounds were regular S1 and S2 with no murmur, no S3. ABDOMEN: Soft, protuberant without masses. No organomegaly or tenderness. Bowel sounds are active. EXTREMITIES: Decreased peripheral pulses and minimal edema. Reflexes are 1+. The patient does move his extremities . CRANIAL NERVES: Grossly intact. RECTAL: Exam is deferred. SKIN: Cool and dry. Assessment and Plan Assessment and Plan IMPRESSION: 1. Chronic obstructive pulmonary disease with acute exacerbation. 2. Dehydration and acute kidney injury. 3. History of hypertension. 4. Left basilar pneumonia. Plan : 1. Continue Rocephin 1 G IV daily X2. 2. CBC,BMP in am 3. O2 at 2 L. 4. PT evaluation 5.Duoneb nebs qid. 6. Ativan .5 mg Q6H prn 7. CBC, BMP in am 8. Thiamine 100 mg daily 9. Prednisone 10 mg daily 10.Soft diet Vaibhav Tubbs MD Oct 18, 2017 14:06
[2017-10-18] MEDS: TAMSULOSIN HCL 0.4 MG CAP PO SCH (21:42)
[2017-10-18] MEDS: AZITHROMYCIN 250 MG TAB PO SCH (21:42)
[2017-10-18] MEDS: traZODone HCL 100 MG TAB PO SCH (21:42)
[2017-10-18] MEDS: hydrALAZINE HCL 10 MG TAB PO PRN (23:51)
[2017-10-19] VITALS (7 sets, daily range): BP systolic 143–181; BP diastolic 73–92; PULSE 72–116; RESP 17–19; TEMP 97.6–98.8; O2SAT 90–94
[2017-10-19] MEDS: SODIUM CHLOR 0.9% 1000 ML INJ 1,000 ML IV SCH ×2 (05:06→20:15)
[2017-10-19] MEDS: HEPARIN SODIUM - SQ 10,000 UNITS/ML VIAL SQ SCH ×2 (05:06→18:22)
[2017-10-19] MEDS: LORazepam 1 MG TAB PO SCH ×4 (05:06→23:43)
[2017-10-19] MEDS: cefTRIAXone INJ 1,000 MG in SODIUM CHLORIDE 0.9% INJ 100 ML IV SCH (05:06)
[2017-10-19] MEDS: ALBUTEROL SULFATE 90 MCG/ACT HFA 8 GM INHALER INH SCH ×4 (05:07→23:45)
[2017-10-19] MEDS: DOXAZOSIN MESYLATE 4 MG TAB PO SCH (08:53)
[2017-10-19] MEDS: DOCUSATE SODIUM 50 MG/SENNA 8.6 MG TAB PO SCH ×2 (08:53→21:04)
[2017-10-19] MEDS: METOPROLOL TARTRATE 25 MG TAB PO SCH ×2 (08:53→21:04)
[2017-10-19] MEDS: MAGNESIUM OXIDE 400 MG TAB PO SCH ×2 (08:53→21:04)
[2017-10-19] MEDS: CALCIUM CARBONATE 1.25 GM (CA 500 MG) TAB PO SCH ×2 (08:53→21:04)
[2017-10-19] MEDS: LISINOPRIL 5 MG TAB PO SCH (08:53)
[2017-10-19] MEDS: FINASTERIDE 5 MG TAB PO SCH (08:53)
[2017-10-19] MEDS: predniSONE 10 MG TAB PO SCH (08:53)
[2017-10-19] MEDS: THIAMINE HCL 200 MG/2 ML VIAL IM SCH (08:54)
[2017-10-19] MEDS: FLUTICASONE 200 MCG/VILANTEROL 25 MCG INHALER INH SCH (08:55)
[2017-10-19] MEDS: BUDESONIDE-FORMOTEROL 160/4.5 MCG INHALER INH SCH ×2 (08:55→21:09)
[2017-10-19] MEDS: SODIUM CHLORIDE 0.9% FLUSH 10 ML FLUSH IV FLUSH SCH ×2 (08:55→21:00)
[2017-10-19] MEDS: REMOVE OLD PATCH T-DERMAL SCH (08:56)
[2017-10-19] MEDS: NICOTINE 21 MG/24 HR PATCH T-DERMAL SCH (08:56)
--- NOTE | 2017-10-19 09:59 | RADRPT ---
EXAM DATE/TIME: 10/19/2017 09:46 [facility] COMPARISON: CHEST SINGLE AP, October 15, 2017, 5:32. CHEST PA & LAT, February 28, 2017, 15:39. INDICATIONS : Short of breath, back and neck pain MEDICAL HISTORY : Chronic obstructive pulmonary disease. Renal cell carcinoma. Renal calculi. SURGICAL HISTORY : Nephrectomy, right. ENCOUNTER: Subsequent ACUITY: 4 - 6 days PAIN SCORE: 10/10 LOCATION: Bilateral chest FINDINGS: Complete opacification left hemithorax. Right lung hyperinflated. There is no pneumothorax. CONCLUSION: Complete opacification left hemithorax. Adolfo Ly MD FACR on October 19, 2017 at 9:55 Board Certified Radiologist. This report was verified electronically.
--- NOTE | 2017-10-19 13:53 | HHI.PR ---
Subjective Remarks Alert in bed, family at bedside. Objective Vital Signs Date Time Temp Pulse Resp B/P (MAP) Pulse Ox O2 Delivery O2 Flow Rate FiO2 10/19/17 12:00 98.1 109 17 161/76 (104) 93 10/19/17 08:00 97.6 89 18 171/82 (111) 90 10/19/17 07:40 21 10/19/17 04:11 98.1 77 19 174/83 (113) 94 10/19/17 00:00 98.8 72 19 181/92 (121) 94 10/18/17 20:00 88 20 187/84 (118) 92 10/18/17 20:00 84 10/18/17 20:00 Nasal Cannula 2.00 10/18/17 19:50 92 21 10/18/17 16:46 98.7 88 18 168/74 (105) 100 I/O 10/18/17 10/18/17 10/18/17 10/19/17 10/19/17 10/19/17 07:00 15:00 23:00 07:00 15:00 23:00 Intake Total 720 ml 2000 ml Output Total 1350 ml 800 ml 400 ml Balance -1350 ml 720 ml 1200 ml -400 ml Intake Oral 720 ml 900 ml IV Total 1100 ml Output Urine Total 1350 ml 800 ml 400 ml # Bowel Movements 1 Result Diagram: 10/17/17 0502 10/17/17 0502 Imaging Last 72 hours Impressions Chest X-Ray 10/19/17 0600 Signed Impressions: Service Date/Time: Thursday, October 19, 2017 09:46 - CONCLUSION: Complete opacification left hemithorax. Adolfo Ly MD FACR Objective Remarks GENERAL: This is a well-nourished, elderly male resting in bed on 4 liters SKIN: No rashes, ecchymotic area to B/L UE with skin tear to rue. HEAD: Atraumatic. Normocephalic. No temporal or scalp tenderness. EYES: Pupils equal round and reactive. Extraocular motions intact. No scleral icterus. No injection or drainage. ENT: Nose without bleeding, purulent drainage NECK: Trachea midline. No JVD CARDIOVASCULAR: Regular rate and rhythm without murmurs, gallops, or rubs. RESPIRATORY: Breath sounds equal bilaterally expiratory wheezes, coarse GASTROINTESTINAL: Abdomen soft, non-tender, nondistended. MUSCULOSKELETAL: Right knee abrasion, trace edema NEUROLOGICAL: alert answers appropriately Medications and IVs Current Medications Medications (Trade) Dose Ordered Sig/Nayeli Route Start Time Stop Time Status Last Admin (Proair Hfa Inh) 2 puff Q6HR INH 10/13/17 06:00 10/19/17 05:07 (Norvasc) 10 mg DAILY PO 10/13/17 09:00 10/19/17 08:53 (Cardura) 8 mg DAILY PO 10/13/17 09:00 10/19/17 08:53 (Proscar) 5 mg DAILY PO 10/13/17 09:00 10/19/17 08:53 (Breo Ellipta 200-25 Inh) 1 puff DAILY INH 10/13/17 09:00 10/19/17 08:55 (Prinivil) 5 mg DAILY PO 10/13/17 09:00 10/19/17 08:53 (Elvie-Colace) 1 tab BID PO 10/13/17 09:00 10/19/17 08:53 (Flomax) 0.4 mg HS PO 10/13/17 21:00 10/18/17 21:42 (Desyrel) 100 mg HS PO 10/13/17 21:00 10/18/17 21:42 (NS Flush) 2 ml UNSCH PRN IV FLUSH 10/13/17 06:00 (NS Flush) 2 ml BID IV FLUSH 10/13/17 09:00 10/19/17 08:55 (Heparin Inj) 5,000 units Q12H SQ 10/13/17 06:00 10/19/17 05:06 (Narcan Inj) 0.4 mg UNSCH PRN IV PUSH 10/13/17 06:00 (Oscal) 500 mg Q12HR PO 10/13/17 09:00 10/19/17 08:53 (Mag-Ox) 400 mg Q12HR PO 10/13/17 09:00 10/19/17 08:53 (Pill Splitter) 1 ea UNSCH PRN OTHER 10/13/17 06:15 (Duoneb Neb) 1 ampule Q2HR NEB PRN NEB 10/13/17 09:30 Sodium Chloride 1,000 ml @ 83 mls/hr Q12H3M IV 10/13/17 15:00 3/5/18 05:06 Ceftriaxone Sodium 1000 mg/ Sodium Chloride 100 ml @ 200 mls/hr Q24H IV 10/14/17 05:00 10/19/17 05:06 (Symbicort 160-4.5 Mcg Inh) 2 puff Q12HR INH 10/13/17 21:00 10/19/17 08:55 (Apresoline) 10 mg Q6HR PRN PO 10/14/17 08:30 10/18/17 23:51 (Habitrol 21 Mg Patch.24 Hr) 1 patch DAILY T-DERMAL 10/15/17 09:00 10/19/17 08:56 Miscellaneous Information 1 DAILY T-DERMAL 10/15/17 09:00 10/19/17 08:56 (Ativan) 1 mg Q6HR PO 10/14/17 12:00 10/19/17 05:06 (Lopressor) 25 mg BID PO 10/14/17 21:00 10/19/17 08:53 (Zithromax) 500 mg Q24H PO 10/14/17 20:00 10/18/17 21:42 (Haldol Inj) 5 mg Q6H PRN IM 10/15/17 09:45 (Ativan) 1 mg Q4H PRN PO 10/15/17 10:00 10/18/17 08:54 (Ativan Inj) 1 mg Q4H PRN IV PUSH 10/15/17 10:00 10/15/17 18:24 (Ativan) 2 mg Q2H PRN PO 10/15/17 10:00 (Ativan Inj) 2 mg Q2H PRN IV PUSH 10/15/17 10:00 10/15/17 10:36 (Ativan Inj) 2 mg Q1H PRN IV PUSH 10/15/17 10:00 10/15/17 12:02 (Ativan Inj) 2 mg Q15M PRN IV PUSH 10/15/17 10:00 (Romazicon Inj) 0.2 mg Q1M PRN IV PUSH 10/15/17 10:00 (Thiamine Inj) 100 mg DAILY IM 10/16/17 09:00 10/20/17 08:59 10/19/17 08:54 (Deltasone) 10 mg BID PO 10/16/17 21:00 10/23/17 20:59 10/19/17 08:53 Assessment and Plan Problem List: (1) Left lower lobe pneumonia ICD Codes: J18.1 - Lobar pneumonia, unspecified organism Status: Acute Plan: Followed by pulmonary recommendations, cont Rocephin (2) COPD exacerbation ICD Codes: J44.1 - COPD exacerbation Status: Acute Plan: Pulmonary following Keep sats >90. Trevor nebs, Solu Medrol. (3) Alcohol withdrawal ICD Codes: F10.239 - Alcohol dependence with withdrawal, unspecified Plan: better cont w/ CIWA (4) Chronic renal disease ICD Codes: N18.9 - Chronic kidney disease Status: Chronic Plan: Renal following, History of nephrectomy r/t carcinoma. Avoid nephro toxins (5) Hypertension ICD Codes: I10 - Essential (primary) hypertension Status: Chronic Plan: BP still running high, on multiple agents will increase Cardura (6) Weakness ICD Codes: R53.1 - Weakness Status: Acute Plan: Rehab at DC Discharge Planning DC in am if ok with Pulmonary Problem Qualifiers (1) Left lower lobe pneumonia: Qualified Codes: J69.0 - Pneumonitis due to inhalation of food and vomit (2) Chronic renal disease: Qualified Codes: N18.3 - Chronic kidney disease, stage 3 (moderate) (3) Hypertension: Qualified Codes: I10 - Essential (primary) hypertension Sulma Macias Oct 19, 2017 13:52
--- NOTE | 2017-10-19 19:12 | HHI.PR ---
Subjective Remarks . Awake and on O2 3 L.Sats 95 Chest X ray shows complete whiteout of left side Has wheezing. No Fever. Objective Vital Signs Date Time Temp Pulse Resp B/P (MAP) Pulse Ox O2 Delivery O2 Flow Rate FiO2 10/19/17 18:14 Nasal Cannula 2.00 21 10/19/17 16:00 98.0 101 17 143/73 (96) 93 10/19/17 12:00 98.1 109 17 161/76 (104) 93 10/19/17 08:00 97.6 89 18 171/82 (111) 90 10/19/17 07:40 21 10/19/17 04:11 98.1 77 19 174/83 (113) 94 10/19/17 00:00 98.8 72 19 181/92 (121) 94 10/18/17 20:00 88 20 187/84 (118) 92 10/18/17 20:00 84 10/18/17 20:00 Nasal Cannula 2.00 10/18/17 19:50 92 21 I/O 10/18/17 10/18/17 10/18/17 10/19/17 10/19/17 10/19/17 07:00 15:00 23:00 07:00 15:00 23:00 Intake Total 720 ml 2000 ml 800 ml Output Total 1350 ml 800 ml 400 ml 900 ml Balance -1350 ml 720 ml 1200 ml -400 ml -100 ml Intake Oral 720 ml 900 ml 800 ml IV Total 1100 ml Output Urine Total 1350 ml 800 ml 400 ml 900 ml # Bowel Movements 1 0 Result Diagram: 10/17/17 0502 10/17/17 0502 Objective Remarks GENERAL: This elderly, averagely built, white male is in no acute distress. Pallor noted. No cyanosis. There is no peripheral edema. No lymphadenopathy. HEENT: Head normocephalic. Pupils are reactive and equal. Tongue is moist. Nasal mucosa clear. NECK: No bruits. No venous distension . Trachea midline. CHEST: Equal movements with decreased breath sounds at left base. HEART: Sounds were regular S1 and S2 with no murmur, no S3. ABDOMEN: Soft, protuberant without masses. No organomegaly or tenderness. Bowel sounds are active. EXTREMITIES: Decreased peripheral pulses and minimal edema. Reflexes are 1+. The patient does move his extremities . CRANIAL NERVES: Grossly intact.Alert and oriented. RECTAL: Exam is deferred. SKIN: Cool and dry. Assessment and Plan Assessment and Plan IMPRESSION: 1. Chronic obstructive pulmonary disease with acute exacerbation. 2. Dehydration and acute kidney injury. 3. History of hypertension. 4. Left basilar pneumonia. 5. Left lung atelectasis Plan : 1. Continue Rocephin 1 G IV daily 2. Advised him about doing a Bronchoscopy and lavage ,but he has declined 3. O2 at 3 L. 4. PT evaluation 5. Duoneb nebs qid. 6. Ativan .5 mg Q6H prn 7. Add Mucomyst 10 % 2 CC qid. 8. CPT and drainage qid 9. Solumedrol 40 mg IV Q8H 10.Rpt CXR ,CBC in am Vaibhav Tubbs MD Oct 19, 2017 19:12
--- NOTE | 2017-10-19 20:39 | HHI.NPPN ---
Subjective Complaints: Confused, Shortness of Breath General Problems: Edema, Hypertension Renal Failure: Chronic, Acute History of Present Illness Patient is a 72-year-old male presents to the emergency department by EMS transport from home s/p fall after getting out of bed and being to weak to get up. Patient states he has chronic COPD and this morning was getting up out of bed without his walker to go to the bathroom and noticed that when he stood up that both of his legs are weak causing him to fall to the floor. Denies any fevers, CP, nausea, vomiting or diarrhea. 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 Nephrology was consulted of hypocalcemia, electrolyte imbalance, and CKD, Was found to have a calcium level of 6.6, potassium level of 2.8, creatinine of 1.74 and GFR of 37 ml/min. Patient drinks 12 oz of 94 proof GIN daily. Additional Remarks Patient is alert remains confused, seen in AM. Review of Systems Respiratory Lungs: SOB Cardiovascular Cardiac: Edema Gastrointestinal GI Remarks Denies abdominal pain Objective Data Data 10/19/17 10/20/17 19:00 07:00 Intake Total 800 ml Output Total 1300 ml Balance -500 ml Intake Oral 800 ml Output Urine Total 1300 ml # Bowel Movements 0 Vital Signs Date Time Temp Pulse Resp B/P (MAP) Pulse Ox O2 Delivery O2 Flow Rate FiO2 10/19/17 18:14 Nasal Cannula 2.00 21 10/19/17 16:00 98.0 101 17 143/73 (96) 93 10/19/17 12:00 98.1 109 17 161/76 (104) 93 10/19/17 08:00 97.6 89 18 171/82 (111) 90 10/19/17 07:40 21 10/19/17 04:11 98.1 77 19 174/83 (113) 94 10/19/17 00:00 98.8 72 19 181/92 (121) 94 -: 10/17/17 0502 10/17/17 0502 Physical Exam General Appearance: Anxious Eyes Eye Exam: Pupils Equal Pulmonary Resp Exam: Rhonchi, Sputum, Decreased Bases Cardiology CV Exam: Regular Gastrointestinal/Abdomen GI Exam: Soft, Non-Tender, Bowel Sounds Present Genitourinary Exam: Flank Non-Tender Integumentary Skin Exam: Clear, Warm Extremeties Extremities Exam: Moderate Edema Neurologic Neuro Exam: Alert, Awake Assessment/Plan Problem List: (1) Chronic renal disease ICD Codes: N18.9 - Chronic kidney disease Status: Chronic Plan: Patient with history of right partial nephrectomy for tumor. Creatinine is 1.82 and GFR 37 ml/min. This is most likely patients baseline. Most likely has CKD from HTN or renal vascular disease Patient has BERE, possibly pre renal or ATN. Renal US : mildly echogenic which can be seen with early medical renal disease, possible nonobstructing calculi in the right kidney, and left sided renal cysts. Non Oliguric Proteinuria noted Plan Creatinine stable Will monitor labs and UOP. Continue IVF if PO intake improves recommend to discontinue. Creatinine increase slightly to 1.4, encourage oral intake. (2) Disorder of electrolytes ICD Codes: E87.8 - Other disorders of electrolyte and fluid balance, not elsewhere classified Status: Acute Plan: Calcium found to be at 6.6 and Potassium of 2.8 on admission Patient has received replacement and now WNL (3) COPD exacerbation ICD Codes: J44.1 - COPD exacerbation Status: Acute Plan: Continue O2 Mild SOB (4) Lactic acidosis ICD Codes: E87.2 - Acidosis Status: Acute Plan: Resolved (5) Hypertension ICD Codes: I10 - Essential (primary) hypertension Status: Chronic Plan: Well controlled (6) Weakness ICD Codes: R53.1 - Weakness Status: Acute Plan: Patient is very deconditioned and plan is for rehab Problem Qualifiers (1) Chronic renal disease: Qualified Codes: N18.3 - Chronic kidney disease, stage 3 (moderate) (2) Hypertension: Qualified Codes: I10 - Essential (primary) hypertension Roberto Benitez MD Oct 19, 2017 20:39
[2017-10-19] MEDS: traZODone HCL 100 MG TAB PO SCH (21:04)
[2017-10-19] MEDS: TAMSULOSIN HCL 0.4 MG CAP PO SCH (21:04)
[2017-10-19] MEDS: methylPREDNISolone SOD SUCC 40 MG/1 ML VIAL IV PUSH SCH (21:04)
[2017-10-19] MEDS: RESP: ALBUTEROL 2.5 MG/IPRATROPIUM 0.5 MG NEB (PRN) NEB (21:18)
[2017-10-19] MEDS: RESP: ACETYLCYSTEINE 10% 30 ML NEB NEB SCH (21:18)
[2017-10-20] VITALS (7 sets, daily range): BP systolic 136–183; BP diastolic 63–88; PULSE 70–97; RESP 17–25; TEMP 97.7–98.7; O2SAT 91–99
[2017-10-20] MEDS: hydrALAZINE HCL 10 MG TAB PO PRN ×2 (00:24→23:33)
[2017-10-20] MEDS: RESP: ACETYLCYSTEINE 10% 30 ML NEB NEB SCH ×4 (04:00→21:48)
[2017-10-20] MEDS: RESP: ALBUTEROL 2.5 MG/IPRATROPIUM 0.5 MG NEB (PRN) NEB ×3 (04:50→17:26)
--- NOTE | 2017-10-20 05:15 | RADRPT ---
EXAM DATE/TIME: 10/20/2017 03:52 [facility] COMPARISON: CT THORAX W/O CONTRAST, October 13, 2017, 15:15. CHEST PA & LAT, October 19, 2017, 9:46. CHEST SINGL E AP, October 15, 2017, 5:32. INDICATIONS : Shortness of breath. MEDICAL HISTORY : Chronic obstructive pulmonary disease. Renal cell carcinoma. Renal calculi. SURGICAL HISTORY : Nephrectomy, right. ENCOUNTER: Subsequent ACUITY: 4 - 6 days PAIN SCORE: 10/10 LOCATION: Bilateral chest FINDINGS: Portable AP view of the chest demonstrates a normal-sized cardiac silhouette with calcification of th e aorta. There is leftward shift of the mediastinum. There is a moderate size left basilar pleural-pa renchymal opacity obscuring the left hemidiaphragm. There is improved aeration in the left upper lobe with residual opacity. Right lung is hyperexpanded. No pneumothorax is seen. CONCLUSION: 1. Mild improved aeration in the left upper lobe. However, there is persistent opacity in the left up per lobe. 2. There is left lung volume loss with left basilar opacity which could represent volume loss, consol idation, or pleural fluid. George Correia MD on October 20, 2017 at 5:10 Board Certified Radiologist. This report was verified electronically.
[2017-10-20] MEDS: cefTRIAXone INJ 1,000 MG in SODIUM CHLORIDE 0.9% INJ 100 ML IV SCH (05:30)
[2017-10-20] MEDS: methylPREDNISolone SOD SUCC 40 MG/1 ML VIAL IV PUSH SCH ×2 (05:31→13:08)
[2017-10-20] MEDS: ALBUTEROL SULFATE 90 MCG/ACT HFA 8 GM INHALER INH SCH ×4 (05:37→23:08)
[2017-10-20] MEDS: HEPARIN SODIUM - SQ 10,000 UNITS/ML VIAL SQ SCH ×2 (05:37→18:13)
[2017-10-20] MEDS: LORazepam 1 MG TAB PO SCH ×4 (05:38→23:08)
[2017-10-20 06:52] LABS: AUTOMATED NEUTROPHIL # 6.8 TH/MM3 (1.8-7.7); BASOPHIL % 0.1 % (0.0-2.0); HEMATOCRIT 45.2 % (39.0-51.0); HEMOGLOBIN 15.7 GM/DL (13.0-17.0); LYMPHOCYTE # 0.5 TH/MM3 (1.0-4.8); MEAN CORPUSCULAR HEMOGLOBIN 35.1 PG (27.0-34.0); MEAN CORPUSCULAR HGB CONC 34.7 % (32.0-36.0); MEAN PLATELET VOLUME 9.1 FL (7.0-11.0); MONO % 5.3 % (0.0-8.0); MONOCYTE # 0.4 TH/MM3 (0-0.9); NEUT % 87.6 % (16.0-70.0); PLATELET COUNT 103 TH/MM3 (150-450); RED BLOOD COUNT 4.48 MIL/MM3 (4.50-5.90); WHITE BLOOD COUNT 7.7 TH/MM3 (4.0-11.0)
[2017-10-20 07:24] LABS: BICARBONATE 29.8 MEQ/L (21.0-32.0); CALCIUM 8.4 MG/DL (8.5-10.1); CREATININE 1.56 MG/DL (0.60-1.30)
[2017-10-20] MEDS: REMOVE OLD PATCH T-DERMAL SCH (09:00)
[2017-10-20] MEDS: DOCUSATE SODIUM 50 MG/SENNA 8.6 MG TAB PO SCH ×2 (09:00→20:38)
[2017-10-20] MEDS: DOXAZOSIN MESYLATE 4 MG TAB PO SCH (09:19)
[2017-10-20] MEDS: LISINOPRIL 5 MG TAB PO SCH (09:20)
[2017-10-20] MEDS: METOPROLOL TARTRATE 25 MG TAB PO SCH ×2 (09:20→20:38)
[2017-10-20] MEDS: FINASTERIDE 5 MG TAB PO SCH (09:20)
[2017-10-20] MEDS: MAGNESIUM OXIDE 400 MG TAB PO SCH ×2 (09:20→20:38)
[2017-10-20] MEDS: CALCIUM CARBONATE 1.25 GM (CA 500 MG) TAB PO SCH ×2 (09:20→20:39)
[2017-10-20] MEDS: NICOTINE 21 MG/24 HR PATCH T-DERMAL SCH (09:23)
[2017-10-20] MEDS: SODIUM CHLORIDE 0.9% FLUSH 10 ML FLUSH IV FLUSH SCH ×2 (09:25→20:39)
[2017-10-20] MEDS: FLUTICASONE 200 MCG/VILANTEROL 25 MCG INHALER INH SCH (09:26)
[2017-10-20] MEDS: BUDESONIDE-FORMOTEROL 160/4.5 MCG INHALER INH SCH ×2 (09:26→20:41)
[2017-10-20] MEDS: SODIUM CHLOR 0.9% 1000 ML INJ 1,000 ML IV SCH ×2 (09:27→18:14)
--- NOTE | 2017-10-20 10:09 | HHI.NPPN ---
Subjective Complaints: Confused, Shortness of Breath General Problems: Edema, Hypertension Renal Failure: Chronic, Acute History of Present Illness Patient is a 72-year-old male presents to the emergency department by EMS transport from home s/p fall after getting out of bed and being to weak to get up. Patient states he has chronic COPD and this morning was getting up out of bed without his walker to go to the bathroom and noticed that when he stood up that both of his legs are weak causing him to fall to the floor. Denies any fevers, CP, nausea, vomiting or diarrhea. 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 Nephrology was consulted of hypocalcemia, electrolyte imbalance, and CKD, Was found to have a calcium level of 6.6, potassium level of 2.8, creatinine of 1.74 and GFR of 37 ml/min. Patient drinks 12 oz of 94 proof GIN daily. Additional Remarks Patient is alert. Mild SOB and edema is improving (Raysa Bhakta) Review of Systems Respiratory Lungs: SOB (Raysa Bhakta) Cardiovascular Cardiac: Edema (Raysa Bhakta) Gastrointestinal GI Remarks Denies abdominal pain (Raysa Bhakta) Objective Data Data Vital Signs Date Time Temp Pulse Resp B/P (MAP) Pulse Ox O2 Delivery O2 Flow Rate FiO2 10/20/17 07:30 Nasal Cannula 2.00 10/20/17 07:24 98.1 97 17 156/75 (102) 94 10/20/17 04:47 97.7 87 25 136/63 (87) 91 10/20/17 00:14 97.9 70 23 183/88 (119) 93 10/19/17 21:30 93 Nasal Cannula 10/19/17 21:02 97.6 116 18 165/81 (109) 94 10/19/17 20:00 Nasal Cannula 2.00 10/19/17 18:14 Nasal Cannula 2.00 21 10/19/17 16:00 98.0 101 17 143/73 (96) 93 10/19/17 12:00 98.1 109 17 161/76 (104) 93 (Raysa Bhakta) -: 10/20/17 0610 3/6/18 0610 Physical Exam General Appearance: Anxious Appearance Remarks confused (Raysa Bhakta) Eyes Eye Exam: Pupils Equal (Raysa Bhakta) Pulmonary Resp Exam: Rhonchi, Sputum, Decreased Bases (Raysa Bhakta) Cardiology CV Exam: Regular (Raysa Bhakta) Gastrointestinal/Abdomen GI Exam: Soft, Non-Tender, Bowel Sounds Present (Raysa Bhakta) Genitourinary Exam: Flank Non-Tender (Raysa Bhakta) Integumentary Skin Exam: Clear, Warm Skin Remarks bruising present (Raysa Bhakta) Extremeties Extremities Exam: Moderate Edema (Raysa Bhakta) Neurologic Neuro Exam: Alert, Awake (Raysa Bhakta) Assessment/Plan Problem List: (1) Chronic renal disease ICD Codes: N18.9 - Chronic kidney disease Status: Chronic Plan: Patient with history of right partial nephrectomy for tumor. Creatinine is 1.82 and GFR 37 ml/min. This is most likely patients baseline. Most likely has CKD from HTN or renal vascular disease Patient has BERE, possibly pre renal or ATN. Proteinuria noted Plan Creatinine stable at 1.5 Will monitor labs and UOP. oral fluids encouraged (2) Disorder of electrolytes ICD Codes: E87.8 - Other disorders of electrolyte and fluid balance, not elsewhere classified Status: Acute Plan: Calcium found to be at 6.6 and Potassium of 2.8 on admission Patient has received replacement and now WNL (3) COPD exacerbation ICD Codes: J44.1 - COPD exacerbation Status: Acute Plan: Continue O2 Mild SOB (4) Lactic acidosis ICD Codes: E87.2 - Acidosis Status: Acute Plan: Resolved (5) Hypertension ICD Codes: I10 - Essential (primary) hypertension Status: Chronic Plan: Well controlled (6) Weakness ICD Codes: R53.1 - Weakness Status: Acute Plan: Patient is very deconditioned and plan is for rehab (Raysa Bhakta) Problem List: (1) Chronic renal disease ICD Codes: N18.9 - Chronic kidney disease Status: Chronic Plan: Patient with history of right partial nephrectomy for tumor. Most likely has CKD from HTN or renal vascular disease Patient has BERE, possibly pre renal or ATN. Proteinuria noted Plan Creatinine stable at 1.5 Will monitor labs and UOP. oral fluids encouraged. Patient seen and examined, agree with above. Eating better, follow the urine out put and BMP. (2) Disorder of electrolytes ICD Codes: E87.8 - Other disorders of electrolyte and fluid balance, not elsewhere classified Status: Acute Plan: Calcium found to be at 6.6 and Potassium of 2.8 on admission Patient has received replacement and now WNL (3) COPD exacerbation ICD Codes: J44.1 - COPD exacerbation Status: Acute Plan: Continue O2 Mild SOB (4) Lactic acidosis ICD Codes: E87.2 - Acidosis Status: Acute Plan: Resolved (5) Hypertension ICD Codes: I10 - Essential (primary) hypertension Status: Chronic Plan: Well controlled (6) Weakness ICD Codes: R53.1 - Weakness Status: Acute Plan: Patient is very deconditioned and plan is for rehab (Roberto Benitez MD) Problem Qualifiers (1) Chronic renal disease: Qualified Codes: N18.3 - Chronic kidney disease, stage 3 (moderate) (2) Hypertension: Qualified Codes: I10 - Essential (primary) hypertension Raysa Bhakta Oct 20, 2017 10:09 Roberto Benitez MD Oct 20, 2017 21:20
--- NOTE | 2017-10-20 10:57 | HHI.PR ---
Subjective Remarks Looks great today, mentation clear Objective Vital Signs Date Time Temp Pulse Resp B/P (MAP) Pulse Ox O2 Delivery O2 Flow Rate FiO2 10/20/17 07:30 Nasal Cannula 2.00 10/20/17 07:24 98.1 97 17 156/75 (102) 94 10/20/17 04:47 97.7 87 25 136/63 (87) 91 10/20/17 00:14 97.9 70 23 183/88 (119) 93 10/19/17 21:30 93 Nasal Cannula 10/19/17 21:02 97.6 116 18 165/81 (109) 94 10/19/17 20:00 Nasal Cannula 2.00 10/19/17 18:14 Nasal Cannula 2.00 21 10/19/17 16:00 98.0 101 17 143/73 (96) 93 10/19/17 12:00 98.1 109 17 161/76 (104) 93 I/O 10/19/17 10/19/17 10/19/17 10/20/17 10/20/17 10/20/17 07:00 15:00 23:00 07:00 15:00 23:00 Intake Total 2000 ml 800 ml Output Total 800 ml 400 ml 900 ml 550 ml Balance 1200 ml -400 ml -100 ml -550 ml Intake Oral 900 ml 800 ml IV Total 1100 ml Output Urine Total 800 ml 400 ml 900 ml 550 ml # Bowel Movements 0 Result Diagram: 10/20/17 0610 10/20/17 0610 Imaging Last 24 hours Impressions Chest X-Ray 10/20/17 0600 Signed Impressions: Service Date/Time: Friday, October 20, 2017 03:52 - CONCLUSION: 1. Mild improved aeration in the left upper lobe. However, there is persistent opacity in the left upper lobe. 2. There is left lung volume loss with left basilar opacity which could represent volume loss, consolidation, or pleural fluid. George Correia MD Objective Remarks GENERAL: This is a well-nourished, elderly male resting in bed on 3 liters SKIN: No rashes, ecchymotic area to B/L UE with skin tear to rue. HEAD: Atraumatic. Normocephalic. No temporal or scalp tenderness. EYES: Pupils equal round and reactive. Extraocular motions intact. No scleral icterus. No injection or drainage. ENT: Nose without bleeding, purulent drainage NECK: Trachea midline. No JVD CARDIOVASCULAR: Regular rate and rhythm without murmurs, gallops, or rubs. RESPIRATORY: Breath sounds equal bilaterally expiratory wheezes, coarse GASTROINTESTINAL: Abdomen soft, non-tender, nondistended. MUSCULOSKELETAL: Right knee abrasion, trace edema NEUROLOGICAL: alert answers appropriately Medications and IVs Current Medications Medications (Trade) Dose Ordered Sig/Nayeli Route Start Time Stop Time Status Last Admin (Proair Hfa Inh) 2 puff Q6HR INH 10/13/17 06:00 10/20/17 05:37 (Norvasc) 10 mg DAILY PO 10/13/17 09:00 10/20/17 09:20 (Cardura) 8 mg DAILY PO 10/13/17 09:00 10/20/17 09:19 (Proscar) 5 mg DAILY PO 10/13/17 09:00 10/20/17 09:20 (Breo Ellipta 200-25 Inh) 1 puff DAILY INH 10/13/17 09:00 10/20/17 09:26 (Prinivil) 5 mg DAILY PO 10/13/17 09:00 10/20/17 09:20 (Elvie-Colace) 1 tab BID PO 10/13/17 09:00 10/19/17 21:04 (Flomax) 0.4 mg HS PO 10/13/17 21:00 10/19/17 21:04 (Desyrel) 100 mg HS PO 10/13/17 21:00 10/19/17 21:04 (NS Flush) 2 ml UNSCH PRN IV FLUSH 10/13/17 06:00 (NS Flush) 2 ml BID IV FLUSH 10/13/17 09:00 10/20/17 09:25 (Heparin Inj) 5,000 units Q12H SQ 10/13/17 06:00 10/20/17 05:37 (Narcan Inj) 0.4 mg UNSCH PRN IV PUSH 10/13/17 06:00 (Oscal) 500 mg Q12HR PO 10/13/17 09:00 10/20/17 09:20 (Mag-Ox) 400 mg Q12HR PO 10/13/17 09:00 10/20/17 09:20 (Pill Splitter) 1 ea UNSCH PRN OTHER 2/27/18 06:15 (Duoneb Neb) 1 ampule Q2HR NEB PRN NEB 10/13/17 09:30 10/20/17 07:29 Sodium Chloride 1,000 ml @ 83 mls/hr Q12H3M IV 10/13/17 15:00 10/20/17 09:27 Ceftriaxone Sodium 1000 mg/ Sodium Chloride 100 ml @ 200 mls/hr Q24H IV 10/14/17 05:00 10/20/17 05:30 (Symbicort 160-4.5 Mcg Inh) 2 puff Q12HR INH 10/13/17 21:00 10/20/17 09:26 (Apresoline) 10 mg Q6HR PRN PO 10/14/17 08:30 10/20/17 00:24 (Habitrol 21 Mg Patch.24 Hr) 1 patch DAILY T-DERMAL 10/15/17 09:00 10/20/17 09:23 Miscellaneous Information 1 DAILY T-DERMAL 10/15/17 09:00 10/20/17 09:00 (Ativan) 1 mg Q6HR PO 10/14/17 12:00 10/19/17 23:43 (Lopressor) 25 mg BID PO 10/14/17 21:00 10/20/17 09:20 (Haldol Inj) 5 mg Q6H PRN IM 10/15/17 09:45 (Ativan) 1 mg Q4H PRN PO 10/15/17 10:00 10/18/17 08:54 (Ativan Inj) 1 mg Q4H PRN IV PUSH 10/15/17 10:00 10/15/17 18:24 (Ativan) 2 mg Q2H PRN PO 10/15/17 10:00 (Ativan Inj) 2 mg Q2H PRN IV PUSH 10/15/17 10:00 10/15/17 10:36 (Ativan Inj) 2 mg Q1H PRN IV PUSH 10/15/17 10:00 10/15/17 12:02 (Ativan Inj) 2 mg Q15M PRN IV PUSH 10/15/17 10:00 (Romazicon Inj) 0.2 mg Q1M PRN IV PUSH 10/15/17 10:00 (Deltasone) 10 mg BID PO 10/16/17 21:00 10/23/17 20:59 Future Hold 10/19/17 08:53 (Mucomyst 10% Neb) 2 ml Q6HR NEB NEB 10/19/17 22:00 10/20/17 04:00 (SoluMEDROL INJ) 40 mg Q8HR IV PUSH 10/19/17 22:00 10/20/17 05:31 Assessment and Plan Problem List: (1) Left lower lobe pneumonia ICD Codes: J18.1 - Lobar pneumonia, unspecified organism Status: Acute Plan: Followed by pulmonary recommendations, cont Rocephin Bronchodilators, Mucomyst, CPT tx qid (2) COPD exacerbation ICD Codes: J44.1 - COPD exacerbation Status: Acute Plan: Pulmonary following Bronchodilators, Mucomyst, CPT tx qid (3) Alcohol withdrawal ICD Codes: F10.239 - Alcohol dependence with withdrawal, unspecified Plan: better cont w/ CIWA (4) Chronic renal disease ICD Codes: N18.9 - Chronic kidney disease Status: Chronic Plan: Renal following, History of nephrectomy r/t carcinoma. Avoid nephro toxins (5) Hypertension ICD Codes: I10 - Essential (primary) hypertension Status: Chronic Plan: BP better this am, cont to monitor (6) Weakness ICD Codes: R53.1 - Weakness Status: Acute Plan: Rehab at [place] Problem Qualifiers (1) Left lower lobe pneumonia: Qualified Codes: J69.0 - Pneumonitis due to inhalation of food and vomit (2) Chronic renal disease: Qualified Codes: N18.3 - Chronic kidney disease, stage 3 (moderate) (3) Hypertension: Qualified Codes: I10 - Essential (primary) hypertension Sulma Macias Oct 20, 2017 10:57
--- NOTE | 2017-10-20 19:25 | HHI.PR ---
Subjective Remarks . Awake and on O2 2 L. Sats97. Chest X ray shows complete whiteout of left side some improved aeration on left. No Fever. Refused Bronchoscopy Objective Vital Signs Date Time Temp Pulse Resp B/P (MAP) Pulse Ox O2 Delivery O2 Flow Rate FiO2 10/20/17 15:33 98.3 91 18 157/71 (99) 92 10/20/17 11:44 98.7 83 18 154/72 (99) 93 10/20/17 07:30 Nasal Cannula 2.00 10/20/17 07:24 98.1 97 17 156/75 (102) 94 10/20/17 04:47 97.7 87 25 136/63 (87) 91 10/20/17 00:14 97.9 70 23 183/88 (119) 93 10/19/17 21:30 93 Nasal Cannula 10/19/17 21:02 97.6 116 18 165/81 (109) 94 10/19/17 20:00 Nasal Cannula 2.00 I/O 10/19/17 10/19/17 10/19/17 10/20/17 10/20/17 10/20/17 07:00 15:00 23:00 07:00 15:00 23:00 Intake Total 2000 ml 800 ml 720 ml 360 ml Output Total 800 ml 400 ml 900 ml 550 ml 300 ml 200 ml Balance 1200 ml -400 ml -100 ml -550 ml 420 ml 160 ml Intake Oral 900 ml 800 ml 720 ml 360 ml IV Total 1100 ml Output Urine Total 800 ml 400 ml 900 ml 550 ml 300 ml 200 ml # Bowel Movements 0 Result Diagram: 10/20/17 0610 10/20/17 0610 Objective Remarks GENERAL: This elderly, averagely built, white male is in no acute distress. Pallor noted. No cyanosis. There is no peripheral edema. No lymphadenopathy. HEENT: Head normocephalic. Pupils are reactive and equal. Tongue is moist. Nasal mucosa clear. NECK: No bruits. No venous distension . Trachea midline. CHEST: Equal movements with decreased breath sounds at left base. HEART: Sounds were regular S1 and S2 with no murmur, no S3. ABDOMEN: Soft, protuberant without masses. No organomegaly or tenderness. Bowel sounds are active. EXTREMITIES: Decreased peripheral pulses and no edema. Reflexes are 1+. CRANIAL NERVES: Grossly intact.Alert and oriented. RECTAL: Exam is deferred. SKIN: dry. Assessment and Plan Assessment and Plan IMPRESSION: 1. Chronic obstructive pulmonary disease with acute exacerbation. 2. Dehydration and acute kidney injury. 3. History of hypertension. 4. Left basilar pneumonia. 5. Left lung atelectasis Plan : 1. Rocephin 1 G IV daily 2. Advised about doing a Bronchoscopy and lavage ,but he has declined 3. O2 at 2 L. 4. PT evaluation 5. Duoneb nebs qid. 6. Ativan .5 mg Q6H prn 7. Add Mucomyst 10 % 2 CC qid. 8. CPT and drainage qid 9. D/C Solumedrol and add Prednisone 20 mg daily 10.Rpt CXR in am Vaibhav Tubbs MD Oct 20, 2017 19:25
[2017-10-20] MEDS: traZODone HCL 100 MG TAB PO SCH (20:38)
[2017-10-20] MEDS: TAMSULOSIN HCL 0.4 MG CAP PO SCH (20:38)
[2017-10-21] VITALS (10 sets, daily range): BP systolic 132–186; BP diastolic 63–82; PULSE 68–88; RESP 17–23; TEMP 97.6–98.7; O2SAT 93–97
[2017-10-21] MEDS: RESP: ACETYLCYSTEINE 10% 30 ML NEB NEB SCH ×4 (04:53→20:26)
[2017-10-21] MEDS: cefTRIAXone INJ 1,000 MG in SODIUM CHLORIDE 0.9% INJ 100 ML IV SCH (05:06)
[2017-10-21] MEDS: HEPARIN SODIUM - SQ 10,000 UNITS/ML VIAL SQ SCH ×2 (05:08→17:14)
[2017-10-21] MEDS: hydrALAZINE HCL 10 MG TAB PO PRN (05:09)
[2017-10-21] MEDS: LORazepam 1 MG TAB PO SCH ×4 (05:09→23:33)
[2017-10-21] MEDS: ALBUTEROL SULFATE 90 MCG/ACT HFA 8 GM INHALER INH SCH ×4 (05:10→21:43)
[2017-10-21] MEDS: REMOVE OLD PATCH T-DERMAL SCH (09:00)
[2017-10-21] MEDS: SODIUM CHLORIDE 0.9% FLUSH 10 ML FLUSH IV FLUSH SCH ×2 (09:00→21:43)
[2017-10-21] MEDS: NICOTINE 21 MG/24 HR PATCH T-DERMAL SCH (09:29)
[2017-10-21] MEDS: DOCUSATE SODIUM 50 MG/SENNA 8.6 MG TAB PO SCH ×2 (09:29→21:43)
[2017-10-21] MEDS: FINASTERIDE 5 MG TAB PO SCH (09:29)
[2017-10-21] MEDS: MAGNESIUM OXIDE 400 MG TAB PO SCH ×2 (09:30→21:43)
[2017-10-21] MEDS: METOPROLOL TARTRATE 25 MG TAB PO SCH ×2 (09:30→21:43)
[2017-10-21] MEDS: LISINOPRIL 5 MG TAB PO SCH (09:30)
[2017-10-21] MEDS: DOXAZOSIN MESYLATE 4 MG TAB PO SCH (09:30)
[2017-10-21] MEDS: CALCIUM CARBONATE 1.25 GM (CA 500 MG) TAB PO SCH ×2 (09:30→21:43)
[2017-10-21] MEDS: BUDESONIDE-FORMOTEROL 160/4.5 MCG INHALER INH SCH ×2 (09:31→21:44)
[2017-10-21] MEDS: FLUTICASONE 200 MCG/VILANTEROL 25 MCG INHALER INH SCH (09:31)
[2017-10-21] MEDS: SODIUM CHLOR 0.9% 1000 ML INJ 1,000 ML IV SCH ×2 (09:31→21:42)
--- NOTE | 2017-10-21 10:27 | HHI.NPPN ---
Subjective Complaints: Confused, Shortness of Breath General Problems: Edema, Hypertension Renal Failure: Chronic, Acute History of Present Illness Patient is a 72-year-old male presents to the emergency department by EMS transport from home s/p fall after getting out of bed and being to weak to get up. Patient states he has chronic COPD and this morning was getting up out of bed without his walker to go to the bathroom and noticed that when he stood up that both of his legs are weak causing him to fall to the floor. Denies any fevers, CP, nausea, vomiting or diarrhea. 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 Nephrology was consulted of hypocalcemia, electrolyte imbalance, and CKD, Was found to have a calcium level of 6.6, potassium level of 2.8, creatinine of 1.74 and GFR of 37 ml/min. Patient drinks 12 oz of 94 proof GIN daily. Additional Remarks Resting comfortably.No acute issues (Raysa Bhakta) Review of Systems Respiratory Lungs: SOB (Raysa Bhakta) Cardiovascular Cardiac: Edema (Raysa Bhakta) Gastrointestinal GI Remarks Denies abdominal pain (Raysa Bhakta) Objective Data Data Vital Signs Date Time Temp Pulse Resp B/P (MAP) Pulse Ox O2 Delivery O2 Flow Rate FiO2 10/21/17 08:00 95 Nasal Cannula 2.00 10/21/17 08:00 97.9 77 19 179/79 (112) 95 10/21/17 05:03 97 Nasal Cannula 2.00 10/21/17 04:00 97.6 72 22 177/79 (111) 94 10/21/17 00:00 97.9 74 18 186/82 (116) 95 10/20/17 21:50 99 Nasal Cannula 2.00 10/20/17 20:38 Nasal Cannula 2.00 10/20/17 20:00 98.2 96 23 151/69 (96) 93 10/20/17 16:00 92 2.00 10/20/17 15:33 98.3 91 18 157/71 (99) 92 10/20/17 12:00 93 2.00 10/20/17 11:44 98.7 83 18 154/72 (99) 93 (Raysa Bhakta) -: 10/20/17 0610 10/20/17 0610 Physical Exam General Appearance: Anxious Appearance Remarks confused (Raysa Bhakta) Eyes Eye Exam: Pupils Equal (Raysa Bhakta) Pulmonary Resp Exam: Rhonchi, Sputum, Decreased Bases (Raysa Bhakta) Cardiology CV Exam: Regular (Raysa Bhakta) Gastrointestinal/Abdomen GI Exam: Soft, Non-Tender, Bowel Sounds Present (Raysa Bhakta) Genitourinary Exam: Flank Non-Tender (Raysa Bhakta) Integumentary Skin Exam: Clear, Warm Skin Remarks bruising present (Raysa Bhakta) Extremeties Extremities Exam: Moderate Edema (Raysa Bhakta) Neurologic Neuro Exam: Alert, Awake (Raysa Bhakta) Assessment/Plan Problem List: (1) Chronic renal disease ICD Codes: N18.9 - Chronic kidney disease Status: Chronic Plan: Patient with history of right partial nephrectomy for tumor. Most likely has CKD from HTN or renal vascular disease Patient has BERE, possibly pre renal or ATN. Proteinuria noted Plan Follow the urine out put and BMP. (2) Disorder of electrolytes ICD Codes: E87.8 - Other disorders of electrolyte and fluid balance, not elsewhere classified Status: Acute Plan: Calcium found to be at 6.6 and Potassium of 2.8 on admission Patient has received replacement and now WNL (3) COPD exacerbation ICD Codes: J44.1 - COPD exacerbation Status: Acute Plan: Continue O2 Mild SOB (4) Lactic acidosis ICD Codes: E87.2 - Acidosis Status: Acute Plan: Resolved (5) Hypertension ICD Codes: I10 - Essential (primary) hypertension Status: Chronic Plan: Well controlled (6) Weakness ICD Codes: R53.1 - Weakness Status: Acute Plan: Patient is very deconditioned and plan is for rehab (Raysa Bhakta) Problem List: (1) Chronic renal disease ICD Codes: N18.9 - Chronic kidney disease Status: Chronic Plan: Patient with history of right partial nephrectomy for tumor. Most likely has CKD from HTN or renal vascular disease Patient has BERE, possibly pre renal or ATN. Proteinuria noted Plan Follow the urine out put and BMP. Patient seen and examined, agree with above. Encourage oral intake. (2) Disorder of electrolytes ICD Codes: E87.8 - Other disorders of electrolyte and fluid balance, not elsewhere classified Status: Acute Plan: Calcium found to be at 6.6 and Potassium of 2.8 on admission Patient has received replacement and now WNL (3) COPD exacerbation ICD Codes: J44.1 - COPD exacerbation Status: Acute Plan: Continue O2 Mild SOB (4) Lactic acidosis ICD Codes: E87.2 - Acidosis Status: Acute Plan: Resolved (5) Hypertension ICD Codes: I10 - Essential (primary) hypertension Status: Chronic Plan: Well controlled (6) Weakness ICD Codes: R53.1 - Weakness Status: Acute Plan: Patient is very deconditioned and plan is for rehab (Roberto Benitez MD) Problem Qualifiers (1) Chronic renal disease: Qualified Codes: N18.3 - Chronic kidney disease, stage 3 (moderate) (2) Hypertension: Qualified Codes: I10 - Essential (primary) hypertension Raysa Bhakta Oct 21, 2017 10:26 Roberto Benitez MD Oct 21, 2017 21:28
--- NOTE | 2017-10-21 11:59 | RADRPT ---
EXAM DATE/TIME: 10/21/2017 10:53 [facility] COMPARISON: CHEST SINGLE AP, October 20, 2017, 3:52. CHEST PA & LAT, October 19, 2017, 9:46. INDICATIONS : Effusion. MEDICAL HISTORY : Chronic obstructive pulmonary disease. Renal cell carcinoma. Renal calculi. SURGICAL HISTORY : Nephrectomy, right. ENCOUNTER: Subsequent ACUITY: 1 week PAIN SCORE: 0/10 LOCATION: Bilateral chest FINDINGS: Partial opacification of the left hemithorax indicating a moderate effusion remains evident. Aeration of the left upper lobe is stable compared to the prior study. Heart and mediastinal structures remain shifted to the left indicating significant volume loss and flex ng collapse. The right lung remains clear. CONCLUSION: Persistent moderate left pleural effusion with underlying collapse consolidated lung. Significant improvement in left upper lobe aeration compared to prior exam on 10/19. Gavino Trotter MD on October 21, 2017 at 11:55 Board Certified Radiologist. This report was verified electronically.
--- NOTE | 2017-10-21 17:30 | HHI.PR ---
Subjective Remarks Reports no problem wants to leave. Objective Vital Signs Date Time Temp Pulse Resp B/P (MAP) Pulse Ox O2 Delivery O2 Flow Rate FiO2 10/21/17 16:13 79 10/21/17 16:00 98.5 73 23 132/63 (86) 93 10/21/17 12:00 97.8 68 22 163/75 (104) 94 10/21/17 08:00 95 Nasal Cannula 2.00 10/21/17 08:00 97.9 77 19 179/79 (112) 95 10/21/17 05:03 97 Nasal Cannula 2.00 10/21/17 04:00 97.6 72 22 177/79 (111) 94 10/21/17 00:00 97.9 74 18 186/82 (116) 95 10/20/17 21:50 99 Nasal Cannula 2.00 10/20/17 20:38 Nasal Cannula 2.00 10/20/17 20:00 98.2 96 23 151/69 (96) 93 I/O 10/20/17 10/20/17 10/20/17 10/21/17 10/21/17 10/21/17 07:00 15:00 23:00 07:00 15:00 23:00 Intake Total 720 ml 360 ml 1097 ml Output Total 550 ml 300 ml 200 ml 950 ml Balance -550 ml 420 ml 160 ml 147 ml Intake Oral 720 ml 360 ml 350 ml IV Total 747 ml Output Urine Total 550 ml 300 ml 200 ml 950 ml # Bowel Movements 0 Result Diagram: 10/20/17 0610 10/20/17 0610 Imaging Last 24 hours Impressions Chest X-Ray 10/21/17 0600 Signed Impressions: Service Date/Time: Saturday, October 21, 2017 10:53 - CONCLUSION: Persistent moderate left pleural effusion with underlying collapse consolidated lung. Significant improvement in left upper lobe aeration compared to prior exam on 10/19. Gavino Trotter MD Objective Remarks GENERAL: This is a well-nourished, elderly male resting in bed on 3 liters SKIN: No rashes, ecchymotic area to B/L UE with skin tear to rue. HEAD: Atraumatic. Normocephalic. No temporal or scalp tenderness. EYES: Pupils equal round and reactive. Extraocular motions intact. No scleral icterus. No injection or drainage. ENT: Nose without bleeding, purulent drainage NECK: Trachea midline. No JVD CARDIOVASCULAR: Regular rate and rhythm without murmurs, gallops, or rubs. RESPIRATORY: equal B/L Diminished/dullness to Left GASTROINTESTINAL: Abdomen soft, non-tender, nondistended. MUSCULOSKELETAL: Right knee abrasion, trace edema NEUROLOGICAL: alert oriented Medications and IVs Current Medications Medications (Trade) Dose Ordered Sig/Nayeli Route Start Time Stop Time Status Last Admin (Proair Hfa Inh) 2 puff Q6HR INH 10/13/17 06:00 10/21/17 17:13 (Norvasc) 10 mg DAILY PO 10/13/17 09:00 10/21/17 09:30 (Cardura) 8 mg DAILY PO 10/13/17 09:00 10/21/17 09:30 (Proscar) 5 mg DAILY PO 10/13/17 09:00 10/21/17 09:29 (Breo Ellipta 200-25 Inh) 1 puff DAILY INH 10/13/17 09:00 10/21/17 09:31 (Prinivil) 5 mg DAILY PO 10/13/17 09:00 10/21/17 09:30 (Elvie-Colace) 1 tab BID PO 10/13/17 09:00 10/21/17 09:29 (Flomax) 0.4 mg HS PO 10/13/17 21:00 10/20/17 20:38 (Desyrel) 100 mg HS PO 10/13/17 21:00 10/20/17 20:38 (NS Flush) 2 ml UNSCH PRN IV FLUSH 10/13/17 06:00 (NS Flush) 2 ml BID IV FLUSH 10/13/17 09:00 10/20/17 09:25 (Heparin Inj) 5,000 units Q12H SQ 10/13/17 06:00 10/21/17 17:14 (Narcan Inj) 0.4 mg UNSCH PRN IV PUSH 10/13/17 06:00 (Oscal) 500 mg Q12HR PO 10/13/17 09:00 10/21/17 09:30 (Mag-Ox) 400 mg Q12HR PO 10/13/17 09:00 10/21/17 09:30 (Pill Splitter) 1 ea UNSCH PRN OTHER 10/13/17 06:15 (Duoneb Neb) 1 ampule Q2HR NEB PRN NEB 10/13/17 09:30 10/20/17 17:26 Sodium Chloride 1,000 ml @ 83 mls/hr Q12H3M IV 10/13/17 15:00 10/21/17 09:31 Ceftriaxone Sodium 1000 mg/ Sodium Chloride 100 ml @ 200 mls/hr Q24H IV 10/14/17 05:00 10/21/17 05:06 (Symbicort 160-4.5 Mcg Inh) 2 puff Q12HR INH 10/13/17 21:00 10/21/17 09:31 (Apresoline) 10 mg Q6HR PRN PO 10/14/17 08:30 10/21/17 05:09 (Habitrol 21 Mg Patch.24 Hr) 1 patch DAILY T-DERMAL 10/15/17 09:00 10/21/17 09:29 Miscellaneous Information 1 DAILY T-DERMAL 10/15/17 09:00 10/21/17 09:00 (Ativan) 1 mg Q6HR PO 10/14/17 12:00 10/21/17 17:14 (Lopressor) 25 mg BID PO 10/14/17 21:00 10/21/17 09:30 (Haldol Inj) 5 mg Q6H PRN IM 10/15/17 09:45 (Ativan) 1 mg Q4H PRN PO 10/15/17 10:00 10/18/17 08:54 (Ativan Inj) 1 mg Q4H PRN IV PUSH 10/15/17 10:00 10/15/17 18:24 (Ativan) 2 mg Q2H PRN PO 10/15/17 10:00 (Ativan Inj) 2 mg Q2H PRN IV PUSH 10/15/17 10:00 10/15/17 10:36 (Ativan Inj) 2 mg Q1H PRN IV PUSH 10/15/17 10:00 10/15/17 12:02 (Ativan Inj) 2 mg Q15M PRN IV PUSH 10/15/17 10:00 (Romazicon Inj) 0.2 mg Q1M PRN IV PUSH 10/15/17 10:00 (Deltasone) 10 mg BID PO 3/2/18 21:00 10/23/17 20:59 Future Hold 10/19/17 08:53 (Mucomyst 10% Neb) 2 ml Q6HR NEB NEB 10/19/17 22:00 10/21/17 15:12 Assessment and Plan Problem List: (1) Left lower lobe pneumonia ICD Codes: J18.1 - Lobar pneumonia, unspecified organism Status: Acute Plan: Followed by pulmonary recommendations, cont Rocephin Bronchodilators, Mucomyst, CPT tx qid Refusing Broncscopy Some improvement ob today CXR (2) COPD exacerbation ICD Codes: J44.1 - COPD exacerbation Status: Acute Plan: Pulmonary following Bronchodilators, Mucomyst, CPT tx qid (3) Alcohol withdrawal ICD Codes: F10.239 - Alcohol dependence with withdrawal, unspecified Plan: better cont w/ CIWA (4) Chronic renal disease ICD Codes: N18.9 - Chronic kidney disease Status: Chronic Plan: Renal following, History of nephrectomy r/t carcinoma. Avoid nephro toxins (5) Hypertension ICD Codes: I10 - Essential (primary) hypertension Status: Chronic Plan: Continues to run high, Hydralazine prn (6) Weakness ICD Codes: R53.1 - Weakness Status: Acute Plan: Rehab at [place] Discharge Planning [place] when cleared by pulmonary Problem Qualifiers (1) Left lower lobe pneumonia: Qualified Codes: J69.0 - Pneumonitis due to inhalation of food and vomit (2) Chronic renal disease: Qualified Codes: N18.3 - Chronic kidney disease, stage 3 (moderate) (3) Hypertension: Qualified Codes: I10 - Essential (primary) hypertension Sulma Macias Oct 21, 2017 17:30
[2017-10-21] MEDS ORDERED: SODIUM CHLOR 0.45% 1000 ML INJ 1,000 ML IV SCH (18:28)
[2017-10-21] MEDS ORDERED: RESP: ALBUTEROL CONC 2.5 MG/0.5 ML NEB NEB SCH (18:30)
--- NOTE | 2017-10-21 18:32 | HHI.PR ---
Subjective Remarks . Awake and on O2 2 L. Sats 95. Chest X ray shows whiteout of left side with some improved aeration on left. No Fever. Agreed for Bronchoscopy in am Objective Vital Signs Date Time Temp Pulse Resp B/P (MAP) Pulse Ox O2 Delivery O2 Flow Rate FiO2 10/21/17 16:13 79 10/21/17 16:00 98.5 73 23 132/63 (86) 93 10/21/17 12:00 97.8 68 22 163/75 (104) 94 10/21/17 08:00 95 Nasal Cannula 2.00 10/21/17 08:00 97.9 77 19 179/79 (112) 95 10/21/17 05:03 97 Nasal Cannula 2.00 10/21/17 04:00 97.6 72 22 177/79 (111) 94 10/21/17 00:00 97.9 74 18 186/82 (116) 95 10/20/17 21:50 99 Nasal Cannula 2.00 10/20/17 20:38 Nasal Cannula 2.00 10/20/17 20:00 98.2 96 23 151/69 (96) 93 I/O 10/20/17 10/20/17 10/20/17 10/21/17 10/21/17 10/21/17 07:00 15:00 23:00 07:00 15:00 23:00 Intake Total 720 ml 360 ml 1097 ml 840 ml Output Total 550 ml 300 ml 200 ml 950 ml 850 ml Balance -550 ml 420 ml 160 ml 147 ml -10 ml Intake Oral 720 ml 360 ml 350 ml 840 ml IV Total 747 ml Output Urine Total 550 ml 300 ml 200 ml 950 ml 850 ml # Voids 1 # Bowel Movements 0 Result Diagram: 10/20/17 0610 10/20/17 0610 Objective Remarks GENERAL: This elderly, averagely built, white male is in no acute distress. Pallor noted. No cyanosis. There is no peripheral edema. No lymphadenopathy. HEENT: Head normocephalic. Pupils are reactive and equal. Tongue is moist. Nasal mucosa clear. NECK: No bruits. No venous distension . Trachea midline. CHEST: Equal movements with decreased breath sounds at left base.Occ wheeze . HEART: Sounds were regular S1 and S2 with no murmur, no S3. ABDOMEN: Soft, protuberant without masses. No organomegaly or tenderness. Bowel sounds are active. EXTREMITIES: Decreased peripheral pulses and no edema. Reflexes are 1+. CRANIAL NERVES: Grossly intact.Alert and oriented. RECTAL: Exam is deferred. SKIN: dry. Assessment and Plan Assessment and Plan IMPRESSION: 1. Chronic obstructive pulmonary disease with acute exacerbation. 2. Dehydration and acute kidney injury. 3. History of hypertension. 4. Left basilar pneumonia. 5. Left lung atelectasis Plan : 1. Rocephin 1 G IV daily 2. Advised about doing a Bronchoscopy and lavage in am and risks were explained 3. O2 at 2 L. 4. PT evaluation 5. Duoneb nebs qid. 6. D/C Ativan and Heparin 7. Add Mucomyst 10 % 2 CC qid. 8. CPT and drainage qid 9. Prednisone 20 mg daily 10.COAG in am Vaibhav Tubbs MD Oct 21, 2017 18:32
[2017-10-21] MEDS ORDERED: INSULIN HUMAN REGULAR 1,000 UNITS/10 ML VIAL SQ PRN (20:00)
[2017-10-21] MEDS ORDERED: CHLORHEXIDINE GLUCONATE 2 % 1 PACK (2 CLOTHS) TOPICAL PRN (20:00)
[2017-10-21] MEDS ORDERED: LACTATED RINGER'S 1000 ML IV PRN (20:00)
[2017-10-21] MEDS ORDERED: POVIDONE IODINE 5% (ANTISEPSIS KIT) 4 APPLICATIONS EACH NARE PRN (20:00)
[2017-10-21] MEDS ORDERED: SODIUM CHLORID 0.9% 500 ML IV PRN (20:00)
[2017-10-21 21:10] LABS: PROTHROMBIN TIME - PATIENT 10.1 SEC (9.8-11.6)
[2017-10-21] MEDS: TAMSULOSIN HCL 0.4 MG CAP PO SCH (21:43)
[2017-10-21] MEDS: cloNIDine HCL 0.1 MG TAB PO SCH (21:43)
[2017-10-21] MEDS: traZODone HCL 100 MG TAB PO SCH (21:43)
[2017-10-21 21:44] LABS: BICARBONATE 30.9 MEQ/L (21.0-32.0); CALCIUM 8.3 MG/DL (8.5-10.1); CREATININE 1.58 MG/DL (0.60-1.30)
[2017-10-22] VITALS (10 sets, daily range): BP systolic 119–169; BP diastolic 67–91; PULSE 59–85; RESP 15–20; TEMP 97.5–98.5; O2SAT 92–98
[2017-10-22] MEDS: RESP: ALBUTEROL 2.5 MG/IPRATROPIUM 0.5 MG NEB (PRN) NEB ×3 (03:26→17:25)
[2017-10-22] MEDS: RESP: ACETYLCYSTEINE 10% 30 ML NEB NEB SCH ×4 (03:27→21:06)
[2017-10-22] MEDS: cefTRIAXone INJ 1,000 MG in SODIUM CHLORIDE 0.9% INJ 100 ML IV SCH (03:55)
[2017-10-22] MEDS: ALBUTEROL SULFATE 90 MCG/ACT HFA 8 GM INHALER INH SCH ×2 (06:00→16:45)
[2017-10-22] MEDS: LORazepam 1 MG TAB PO SCH ×2 (06:00→15:42)
[2017-10-22] MEDS: cloNIDine HCL 0.1 MG TAB PO SCH ×3 (06:00→21:10)
[2017-10-22] MEDS: REMOVE OLD PATCH T-DERMAL SCH (09:00)
--- NOTE | 2017-10-22 10:27 | HHI.NPPN ---
Subjective Complaints: Shortness of Breath General Problems: Edema, Hypertension Renal Failure: Chronic, Acute History of Present Illness Patient is a 72-year-old male presents to the emergency department by EMS transport from home s/p fall after getting out of bed and being to weak to get up. Patient states he has chronic COPD and this morning was getting up out of bed without his walker to go to the bathroom and noticed that when he stood up that both of his legs are weak causing him to fall to the floor. Denies any fevers, CP, nausea, vomiting or diarrhea. 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 Nephrology was consulted of hypocalcemia, electrolyte imbalance, and CKD, Was found to have a calcium level of 6.6, potassium level of 2.8, creatinine of 1.74 and GFR of 37 ml/min. Patient drinks 12 oz of 94 proof GIN daily. Additional Remarks Resting comfortably.No acute issues. NPO for bronchoscopy today. (Raysa Bhakta) Review of Systems Respiratory Lungs: SOB (Raysa Bhakta) Cardiovascular Cardiac: Edema (Raysa Bhakta) Gastrointestinal GI Remarks Denies abdominal pain (Raysa Bhakta) Objective Data Data Vital Signs Date Time Temp Pulse Resp B/P (MAP) Pulse Ox O2 Delivery O2 Flow Rate FiO2 10/22/17 09:42 92 Nasal Cannula 2.00 10/22/17 04:00 97.6 77 20 158/74 (102) 94 10/22/17 00:25 98.0 59 20 150/67 (94) 94 10/21/17 20:26 95 Nasal Cannula 2.00 10/21/17 20:15 Nasal Cannula 2.00 21 10/21/17 20:15 88 10/21/17 20:00 98.3 83 18 141/63 (89) 93 10/21/17 16:13 79 10/21/17 16:00 98.5 73 23 132/63 (86) 93 10/21/17 12:00 97.8 68 22 163/75 (104) 94 (Raysa Bhakta) -: 10/20/17 0610 10/21/172047 Physical Exam General Appearance: Anxious Appearance Remarks confused (Raysa Bhakta) Eyes Eye Exam: Pupils Equal (Raysa Bhakta) Pulmonary Resp Exam: Rhonchi, Sputum, Decreased Bases (Raysa Bhakta) Cardiology CV Exam: Regular (Raysa Bhakta) Gastrointestinal/Abdomen GI Exam: Soft, Non-Tender, Bowel Sounds Present (Raysa Bhakta) Genitourinary Exam: Flank Non-Tender (Raysa Bhakta) Integumentary Skin Exam: Clear, Warm Skin Remarks bruising present (Raysa Bhakta) Extremeties Extremities Exam: Moderate Edema (Raysa Bhakta) Neurologic Neuro Exam: Alert, Awake (Raysa Bhakat) Assessment/Plan Problem List: (1) Chronic renal disease ICD Codes: N18.9 - Chronic kidney disease Status: Chronic Plan: Patient with history of right partial nephrectomy for tumor. Most likely has CKD from HTN or renal vascular disease Patient has BERE, possibly pre renal or ATN. Proteinuria noted Plan Creatinine is stable for bronchoscopy today. Follow the urine out put and BMP. Encourage oral intake. (2) Disorder of electrolytes ICD Codes: E87.8 - Other disorders of electrolyte and fluid balance, not elsewhere classified Status: Acute Plan: Calcium found to be at 6.6 and Potassium of 2.8 on admission Patient has received replacement and now WNL (3) COPD exacerbation ICD Codes: J44.1 - COPD exacerbation Status: Acute Plan: Continue O2 Mild SOB (4) Lactic acidosis ICD Codes: E87.2 - Acidosis Status: Acute Plan: Resolved (5) Hypertension ICD Codes: I10 - Essential (primary) hypertension Status: Chronic Plan: Well controlled (6) Weakness ICD Codes: R53.1 - Weakness Status: Acute Plan: Patient is very deconditioned and plan is for rehab (Raysa Bhakta) Problem List: (1) Chronic renal disease ICD Codes: N18.9 - Chronic kidney disease Status: Chronic Plan: Patient with history of right partial nephrectomy for tumor. Most likely has CKD from HTN or renal vascular disease Patient has BERE, possibly pre renal or ATN. Proteinuria noted Plan Creatinine is stable for bronchoscopy today. Follow the urine out put and BMP. Encourage oral intake. Patient seen and examined, agree with above. Seen after Bronchoscopy. (2) Disorder of electrolytes ICD Codes: E87.8 - Other disorders of electrolyte and fluid balance, not elsewhere classified Status: Acute Plan: Calcium found to be at 6.6 and Potassium of 2.8 on admission Patient has received replacement and now WNL (3) COPD exacerbation ICD Codes: J44.1 - COPD exacerbation Status: Acute Plan: Continue O2 Mild SOB (4) Lactic acidosis ICD Codes: E87.2 - Acidosis Status: Acute Plan: Resolved (5) Hypertension ICD Codes: I10 - Essential (primary) hypertension Status: Chronic Plan: Well controlled (6) Weakness ICD Codes: R53.1 - Weakness Status: Acute Plan: Patient is very deconditioned and plan is for rehab (Roberto Benitez MD) Problem Qualifiers (1) Chronic renal disease: Qualified Codes: N18.3 - Chronic kidney disease, stage 3 (moderate) (2) Hypertension: Qualified Codes: I10 - Essential (primary) hypertension Raysa Bhakta Oct 22, 2017 10:27 Roberto Benitez MD Oct 22, 2017 21:39
[2017-10-22] MEDS ORDERED: fentaNYL CITRATE 250 MCG/5 ML AMP ONE (11:24)
--- NOTE | 2017-10-22 11:40 | HHI.PR ---
Subjective Remarks No complaints, npo scheduled for bronchoscopy Objective Vital Signs Date Time Temp Pulse Resp B/P (MAP) Pulse Ox O2 Delivery O2 Flow Rate FiO2 10/22/17 09:42 92 Nasal Cannula 2.00 10/22/17 08:00 97.7 77 19 169/91 (117) 92 10/22/17 04:00 97.6 77 20 158/74 (102) 94 10/22/17 00:25 98.0 59 20 150/67 (94) 94 10/21/17 20:26 95 Nasal Cannula 2.00 10/21/17 20:15 Nasal Cannula 2.00 21 10/21/17 20:15 88 10/21/17 20:00 98.3 83 18 141/63 (89) 93 10/21/17 16:13 79 10/21/17 16:00 98.5 73 23 132/63 (86) 93 10/21/17 12:00 97.8 68 22 163/75 (104) 94 I/O 10/21/17 10/21/17 10/21/17 10/22/17 10/22/17 10/22/17 07:00 15:00 23:00 07:00 15:00 23:00 Intake Total 1097 ml 840 ml 460 ml Output Total 950 ml 850 ml 800 ml Balance 147 ml -10 ml -340 ml Intake Oral 350 ml 840 ml 460 ml IV Total 747 ml Output Urine Total 950 ml 850 ml 800 ml # Voids 1 # Bowel Movements 0 Result Diagram: 10/20/17 0610 10/21/17 2048 Imaging Last 48 hours Impressions Chest X-Ray 10/21/17 0600 Signed Impressions: Service Date/Time: Saturday, October 21, 2017 10:53 - CONCLUSION: Persistent moderate left pleural effusion with underlying collapse consolidated lung. Significant improvement in left upper lobe aeration compared to prior exam on 10/19. Gavino Trotter MD Objective Remarks GENERAL: This is a well-nourished, elderly male resting in bed on 3 liters SKIN: No rashes, ecchymotic area to B/L UE with skin tear to rue. HEAD: Atraumatic. Normocephalic. No temporal or scalp tenderness. EYES: Pupils equal round and reactive. Extraocular motions intact. No scleral icterus. No injection or drainage. ENT: Nose without bleeding, purulent drainage NECK: Trachea midline. No JVD CARDIOVASCULAR: Regular rate and rhythm without murmurs, gallops, or rubs. RESPIRATORY: equal B/L Diminished/dullness to Left GASTROINTESTINAL: Abdomen soft, non-tender, nondistended. MUSCULOSKELETAL: Right knee abrasion, trace edema NEUROLOGICAL: alert oriented Medications and IVs Current Medications Medications (Trade) Dose Ordered Sig/Nayeli Route Start Time Stop Time Status Last Admin (Proair Hfa Inh) 2 puff Q6HR INH 10/13/17 06:00 10/22/17 06:00 (Norvasc) 10 mg DAILY PO 10/13/17 09:00 10/21/17 09:30 (Cardura) 8 mg DAILY PO 10/13/17 09:00 10/21/17 09:30 (Proscar) 5 mg DAILY PO 10/13/17 09:00 10/21/17 09:29 (Breo Ellipta 200-25 Inh) 1 puff DAILY INH 10/13/17 09:00 10/21/17 09:31 (Prinivil) 5 mg DAILY PO 10/13/17 09:00 10/21/17 09:30 (Elvie-Colace) 1 tab BID PO 10/13/17 09:00 10/21/17 21:43 (Flomax) 0.4 mg HS PO 10/13/17 21:00 10/21/17 21:43 (Desyrel) 100 mg HS PO 10/13/17 21:00 10/21/17 21:43 (NS Flush) 2 ml UNSCH PRN IV FLUSH 10/13/17 06:00 (NS Flush) 2 ml BID IV FLUSH 10/13/17 09:00 10/21/17 21:43 (Narcan Inj) 0.4 mg UNSCH PRN IV PUSH 10/13/17 06:00 (Oscal) 500 mg Q12HR PO 10/13/17 09:00 10/21/17 21:43 (Mag-Ox) 400 mg Q12HR PO 10/13/17 09:00 10/21/17 21:43 (Pill Splitter) 1 ea UNSCH PRN OTHER 10/13/17 06:15 (Duoneb Neb) 1 ampule Q2HR NEB PRN NEB 10/13/17 09:30 10/22/17 09:38 Sodium Chloride 1,000 ml @ 83 mls/hr Q12H3M IV 10/13/17 15:00 10/21/17 21:42 Ceftriaxone Sodium 1000 mg/ Sodium Chloride 100 ml @ 200 mls/hr Q24H IV 10/14/17 05:00 10/23/17 04:59 10/22/17 03:55 (Symbicort 160-4.5 Mcg Inh) 2 puff Q12HR INH 10/13/17 21:00 10/21/17 21:44 (Apresoline) 10 mg Q6HR PRN PO 10/14/17 08:30 10/21/17 05:09 (Habitrol 21 Mg Patch.24 Hr) 1 patch DAILY T-DERMAL 10/15/17 09:00 10/21/17 09:29 Miscellaneous Information 1 DAILY T-DERMAL 10/15/17 09:00 10/21/17 09:00 (Ativan) 1 mg Q6HR PO 10/14/17 12:00 10/21/17 23:33 (Lopressor) 25 mg BID PO 10/14/17 21:00 10/21/17 21:43 (Haldol Inj) 5 mg Q6H PRN IM 10/15/17 09:45 (Ativan) 1 mg Q4H PRN PO 10/15/17 10:00 10/18/17 08:54 (Ativan Inj) 1 mg Q4H PRN IV PUSH 10/15/17 10:00 10/15/17 18:24 (Ativan) 2 mg Q2H PRN PO 10/15/17 10:00 (Ativan Inj) 2 mg Q2H PRN IV PUSH 10/15/17 10:00 10/15/17 10:36 (Ativan Inj) 2 mg Q1H PRN IV PUSH 10/15/17 10:00 10/15/17 12:02 (Ativan Inj) 2 mg Q15M PRN IV PUSH 10/15/17 10:00 (Romazicon Inj) 0.2 mg Q1M PRN IV PUSH 10/15/17 10:00 (Deltasone) 10 mg BID PO 10/16/17 21:00 10/23/17 20:59 Future Hold 10/19/17 08:53 (Mucomyst 10% Neb) 2 ml Q6HR NEB NEB 10/19/17 22:00 10/22/17 09:39 (Catapres) 0.1 mg Q8HR PO 10/21/17 22:00 10/21/17 21:43 Sodium Chloride 1,000 ml @ 0 mls/hr Q0M IV 10/21/17 18:28 (Albuterol Concentrated Neb) 2.5 mg SAMPLER AND TEST PREPARER NEB 10/21/17 18:30 10/25/17 18:29 Lactated Ringer's 1,000 ml @ 30 mls/hr Q24H PRN IV 10/21/17 20:00 10/24/17 19:59 Sodium Chloride 500 ml @ 30 mls/hr [id number] PRN IV 10/21/17 20:00 10/24/17 19:59 (Betadine 5% Antisepsis Kit) 1 applic SAMPLER AND TEST PREPARER PRN EACH NARE 10/21/17 20:00 10/24/17 19:59 (Chlorhexidine 2% Cloth) 3 pack SAMPLER AND TEST PREPARER PRN TOPICAL 10/21/17 20:00 10/24/17 19:59 (NovoLIN R INJ) See Protocol Table ... SAMPLER AND TEST PREPARER PRN SQ 10/21/17 20:00 10/24/17 19:59 Assessment and Plan Problem List: (1) Left lower lobe pneumonia ICD Codes: J18.1 - Lobar pneumonia, unspecified organism Status: Acute Plan: Followed by pulmonary recommendations, cont Rocephin Bronchodilators, Mucomyst, CPT tx qid Bronchoscopy today Some improvement ob today CXR (2) COPD exacerbation ICD Codes: J44.1 - COPD exacerbation Status: Acute Plan: Pulmonary following Bronchodilators, Mucomyst, CPT tx qid (3) Alcohol withdrawal ICD Codes: F10.239 - Alcohol dependence with withdrawal, unspecified Plan: resolved (4) Chronic renal disease ICD Codes: N18.9 - Chronic kidney disease Status: Chronic Plan: Renal following, History of nephrectomy r/t carcinoma. Avoid nephro toxins PO fluids encouraged (5) Hypertension ICD Codes: I10 - Essential (primary) hypertension Status: Chronic Plan: Continues to run high,clonidine added. (6) Weakness ICD Codes: R53.1 - Weakness Status: Acute Plan: Rehab at [place] Problem Qualifiers (1) Left lower lobe pneumonia: Qualified Codes: J69.0 - Pneumonitis due to inhalation of food and vomit (2) Chronic renal disease: Qualified Codes: N18.3 - Chronic kidney disease, stage 3 (moderate) (3) Hypertension: Qualified Codes: I10 - Essential (primary) hypertension Sulma Macias Oct 22, 2017 11:40
[2017-10-22] MEDS ORDERED: RESP: ALBUTEROL 2.5 MG/3 ML NEB (PRN) NEB (12:00)
[2017-10-22] MEDS ORDERED: *RESP: ALBUTEROL 2.5 MG/3 ML NEB (PRN) PERIprocedural Use ONLY NEB ONE (12:04)
--- NOTE | 2017-10-22 12:14 | MR ---
cc: Vaibhav Tubbs MD 10/22/2017 PROCEDURE: Fiberoptic bronchoscopy with brushings, biopsies and washings. PREOPERATIVE DIAGNOSIS: Atelectasis left lung. POSTOPERATIVE DIAGNOSIS: Atelectasis left lung with mucous plugging and endobronchitis. ANESTHESIA: General. SURGEON: Dr. Maria Guadalupe Tubbs PROCEDURE AND FINDINGS: The patient was intubated under general anesthesia following which the Olympus IT180 bronchoscope was used to visualize the bronchi. The scope was advanced via the endotracheal tube into the trachea. The trachea and anshu appeared normal. The scope was then advanced into the right main stem and right upper lobe segmental bronchi. These bronchi demonstrated mild endobronchitis with mucoid secretions. These were suctioned out and saline washings were done. Next, the right middle and lower lobe segmental bronchi were visualized which demonstrated a few mucoid secretions and mild endobronchitis but no endobronchial lesions were seen. These secretions were suctioned out. The scope was then advanced into the left main stem and left upper lobe bronchi. The left main stem bronchus was filled with mucous secretions and mucoid plugs. These extended all the way into the left upper lobe bronchi as well as into the left lower lobe segmental bronchi and they were thick and had to be suctioned out and lavaged with saline. Following lavage, the underlying bronchi that were visualized in the left lower lobe area showed mucosal edema with moderate endobronchitis and mucosal ridging. There were some bloody secretions noted in the left lower lobe bronchi. These were suctioned out. There was moderate edema of the mucosal surface and biopsies were done from here as well as brushings and washings and lavaged until clear. The scope was then withdrawn and the patient tolerated the procedure well. Vaibhav Tubbs MD VNIKOLAI/RUSH , 11:50 AM , 12:13 PM
[2017-10-22] MEDS ORDERED: DO NOT ADM ANY ANTICOAGULANT DRUGS PRN (12:30)
--- NOTE | 2017-10-22 12:58 | RADRPT ---
EXAM DATE/TIME: 10/22/2017 12:10 [facility] COMPARISON: CHEST PA & LAT, October 21, 2017, 10:53. INDICATIONS : Post bronchoscopy, cough. MEDICAL HISTORY : Chronic obstructive pulmonary disease. Renal cell carcinoma. Renal calculi SURGICAL HISTORY : Nephrectomy, right. ENCOUNTER: Subsequent ACUITY: 1 day PAIN SCORE: 0/10 LOCATION: Bilateral chest FINDINGS: The heart is enlarged. There is left basilar effusion and atelectatic change in the left lower lobe. This has improved compared to prior dated 10/21/17. No pneumothorax is seen. The right lung demonstrates a small area of infiltrate at the right lung base but is otherwise clear. This is similar to previous. The osseous structures are grossly intact. CONCLUSION: 1. Left basilar consolidation and pleural effusion slightly improved compared to previous. 2. Continued right basilar infiltrate. Yfn Ly MD on October 22, 2017 at 12:53 Board Certified Radiologist. This report was verified electronically.
[2017-10-22] MEDS: FINASTERIDE 5 MG TAB PO SCH (14:07)
[2017-10-22] MEDS: CALCIUM CARBONATE 1.25 GM (CA 500 MG) TAB PO SCH ×2 (14:07→21:10)
[2017-10-22] MEDS: LISINOPRIL 5 MG TAB PO SCH (14:07)
[2017-10-22] MEDS: DOXAZOSIN MESYLATE 4 MG TAB PO SCH (14:08)
[2017-10-22] MEDS: MAGNESIUM OXIDE 400 MG TAB PO SCH ×2 (14:10→21:10)
[2017-10-22] MEDS: DOCUSATE SODIUM 50 MG/SENNA 8.6 MG TAB PO SCH ×2 (14:10→21:10)
[2017-10-22] MEDS: METOPROLOL TARTRATE 25 MG TAB PO SCH ×2 (15:41→21:10)
[2017-10-22] MEDS: NICOTINE 21 MG/24 HR PATCH T-DERMAL SCH (15:41)
[2017-10-22] MEDS: FLUTICASONE 200 MCG/VILANTEROL 25 MCG INHALER INH SCH (16:45)
[2017-10-22] MEDS: BUDESONIDE-FORMOTEROL 160/4.5 MCG INHALER INH SCH ×2 (16:45→21:11)
[2017-10-22] MEDS: SODIUM CHLORIDE 0.9% FLUSH 10 ML FLUSH IV FLUSH SCH (21:09)
[2017-10-22] MEDS: SODIUM CHLOR 0.9% 1000 ML INJ 1,000 ML IV SCH (21:09)
[2017-10-22] MEDS: traZODone HCL 100 MG TAB PO SCH (21:10)
[2017-10-22] MEDS: TAMSULOSIN HCL 0.4 MG CAP PO SCH (21:10)
--- NOTE | 2017-10-22 21:30 | EKG ---
Date Performed: 10/21/2017 Time Performed: 19:51:19 PTAGE: 72 years EKG: Sinus rhythm WITH OCCASIONAL SUPRAVENTRICULAR PREMATURE COMPLEXES BORDERLINE ECG PREVIOUS TRACING : 10/13/2017 04.15 Compared to previous tracing, probably no significant jeromy moore DOCTOR: Humza Palacios Interpretating Date/Time 10/22/2017 21:29:33
[2017-10-23] VITALS (11 sets, daily range): BP systolic 120–179; BP diastolic 60–87; PULSE 58–88; RESP 20–26; TEMP 97.6–98.8; O2SAT 4–97
[2017-10-23] MEDS: ALBUTEROL SULFATE 90 MCG/ACT HFA 8 GM INHALER INH SCH ×4 (00:05→18:00)
[2017-10-23] MEDS: LORazepam 1 MG TAB PO SCH ×4 (00:05→18:00)
[2017-10-23] MEDS: hydrALAZINE HCL 10 MG TAB PO PRN (04:24)
[2017-10-23] MEDS: RESP: ACETYLCYSTEINE 10% 30 ML NEB NEB SCH ×4 (04:55→20:37)
[2017-10-23] MEDS: cloNIDine HCL 0.1 MG TAB PO SCH ×2 (06:01→14:14)
[2017-10-23] MEDS: RESP: ALBUTEROL 2.5 MG/IPRATROPIUM 0.5 MG NEB (PRN) NEB ×3 (08:17→20:37)
[2017-10-23] MEDS: SODIUM CHLOR 0.9% 1000 ML INJ 1,000 ML IV SCH (08:36)
[2017-10-23] MEDS: REMOVE OLD PATCH T-DERMAL SCH (09:00)
[2017-10-23] MEDS: LISINOPRIL 5 MG TAB PO SCH (09:27)
[2017-10-23] MEDS: CALCIUM CARBONATE 1.25 GM (CA 500 MG) TAB PO SCH ×2 (09:27→20:55)
[2017-10-23] MEDS: DOXAZOSIN MESYLATE 4 MG TAB PO SCH (09:27)
[2017-10-23] MEDS: MAGNESIUM OXIDE 400 MG TAB PO SCH ×2 (09:27→20:55)
[2017-10-23] MEDS: NICOTINE 21 MG/24 HR PATCH T-DERMAL SCH (09:27)
[2017-10-23] MEDS: FINASTERIDE 5 MG TAB PO SCH (09:27)
[2017-10-23] MEDS: DOCUSATE SODIUM 50 MG/SENNA 8.6 MG TAB PO SCH ×2 (09:27→20:55)
[2017-10-23] MEDS: METOPROLOL TARTRATE 25 MG TAB PO SCH ×2 (09:27→20:54)
[2017-10-23] MEDS: BUDESONIDE-FORMOTEROL 160/4.5 MCG INHALER INH SCH ×2 (09:29→20:52)
[2017-10-23] MEDS: FLUTICASONE 200 MCG/VILANTEROL 25 MCG INHALER INH SCH (09:29)
--- NOTE | 2017-10-23 09:56 | HHI.NPPN ---
Subjective Complaints: Shortness of Breath General Problems: Edema, Hypertension Renal Failure: Chronic, Acute History of Present Illness Patient is a 72-year-old male presents to the emergency department by EMS transport from home s/p fall after getting out of bed and being to weak to get up. Patient states he has chronic COPD and this morning was getting up out of bed without his walker to go to the bathroom and noticed that when he stood up that both of his legs are weak causing him to fall to the floor. Denies any fevers, CP, nausea, vomiting or diarrhea. 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 Nephrology was consulted of hypocalcemia, electrolyte imbalance, and CKD, Was found to have a calcium level of 6.6, potassium level of 2.8, creatinine of 1.74 and GFR of 37 ml/min. Patient drinks 12 oz of 94 proof GIN daily. Additional Remarks Resting comfortably.No acute issues. (Raysa Bhakta) Review of Systems Respiratory Lungs: SOB Respiratory Remarks improved (Raysa Bhakta) Cardiovascular Cardiac: Edema (Raysa Bhakta) Gastrointestinal GI Remarks Denies abdominal pain (Raysa Bhakta) Objective Data Data 10/23/17 10/24/17 19:00 07:00 Intake Total 480 ml Output Total 900 ml Balance -420 ml Intake Oral 480 ml Output Urine Total 900 ml Vital Signs Date Time Temp Pulse Resp B/P (MAP) Pulse Ox O2 Delivery O2 Flow Rate FiO2 10/23/17 08:21 4 Nasal Cannula 2.00 10/23/17 08:00 97.6 74 20 154/68 (96) 91 10/23/17 05:26 97 Nasal Cannula 4.00 10/23/17 04:00 98.2 69 22 179/87 (117) 93 10/23/17 00:00 97.6 58 20 150/70 (96) 93 10/22/17 22:00 Nasal Cannula 4.00 10/22/17 21:15 95 Nasal Cannula 4.00 10/22/17 21:09 98 Partial Rebreather 15.00 10/22/17 20:02 77 10/22/17 20:00 Non-Rebreather 10/22/17 20:00 98.1 66 15 119/88 (98) 94 10/22/17 16:00 97.5 76 20 157/74 (101) 97 10/22/17 13:45 98.5 85 20 150/67 (94) 95 10/22/17 13:15 99 16 145/67 (93) 94 Nasal Cannula 4 10/22/17 13:00 96 24 136/63 (87) 94 Nasal Cannula 4 10/22/17 12:45 100 24 137/61 (86) 93 Nasal Cannula 4 10/22/17 12:30 97 22 137/61 (86) 93 Nasal Cannula 4 10/22/17 12:15 103 22 131/55 (80) 93 Nasal Cannula 4 10/22/17 12:01 97.0 89 22 141/63 (89) 93 Simple Mask 6 (Raysa Bhakta) -: 10/20/17 0610 10/21/17 2048 Microbiology 10/22/17 Fungal Smear - Final, Resulted RARE BUDDING YEAST CELLS 10/22/17 Fungal Culture, Resulted Pending 10/22/17 Acid Fast Stain, Received Pending 10/22/17 Mycobacterial Culture, Received Pending 10/22/17 Gram Stain - Final, Resulted 10/22/17 Bronchial Culture, Resulted Pending (Raysa Bhakta) Physical Exam General Appearance: Anxious Appearance Remarks confused (Raysa Bhakta) Eyes Eye Exam: Pupils Equal (Raysa Bhakta) Pulmonary Resp Exam: Rhonchi, Sputum, Decreased Bases (Raysa Bhakta) Cardiology CV Exam: Regular (Raysa Bhakta) Gastrointestinal/Abdomen GI Exam: Soft, Non-Tender, Bowel Sounds Present (Raysa Bhakta) Genitourinary Exam: Flank Non-Tender (Raysa Bhakta) Integumentary Skin Exam: Clear, Warm Skin Remarks bruising present (Raysa Bhakta) Extremeties Extremities Exam: Moderate Edema (Raysa Bhakta) Neurologic Neuro Exam: Alert, Awake (Raysa Bhakta) Assessment/Plan Problem List: (1) Chronic renal disease ICD Codes: N18.9 - Chronic kidney disease Status: Chronic Plan: Patient with history of right partial nephrectomy for tumor. Most likely has CKD from HTN or renal vascular disease Patient has BERE, possibly pre renal or ATN. Proteinuria noted Plan Creatinine is stable Follow the urine out put and BMP. Encourage oral intake. (2) Disorder of electrolytes ICD Codes: E87.8 - Other disorders of electrolyte and fluid balance, not elsewhere classified Status: Acute Plan: Calcium found to be at 6.6 and Potassium of 2.8 on admission Patient has received replacement and now WNL (3) COPD exacerbation ICD Codes: J44.1 - COPD exacerbation Status: Acute Plan: Continue O2 Mild SOB (4) Lactic acidosis ICD Codes: E87.2 - Acidosis Status: Acute Plan: Resolved (5) Hypertension ICD Codes: I10 - Essential (primary) hypertension Status: Chronic Plan: Well controlled (6) Weakness ICD Codes: R53.1 - Weakness Status: Acute Plan: Patient is very deconditioned and plan is for rehab (Raysa Bhakta) Problem List: (1) Chronic renal disease ICD Codes: N18.9 - Chronic kidney disease Status: Chronic Plan: Patient with history of right partial nephrectomy for tumor. Most likely has CKD from HTN or renal vascular disease Patient has BERE, possibly pre renal or ATN. Proteinuria noted Plan Creatinine is stable Follow the urine out put and BMP. Encourage oral intake. Patient seen and examined, agree with above. Follow the urine out put and BMP. (2) Disorder of electrolytes ICD Codes: E87.8 - Other disorders of electrolyte and fluid balance, not elsewhere classified Status: Acute Plan: Calcium found to be at 6.6 and Potassium of 2.8 on admission Patient has received replacement and now WNL (3) COPD exacerbation ICD Codes: J44.1 - COPD exacerbation Status: Acute Plan: Continue O2 Mild SOB (4) Lactic acidosis ICD Codes: E87.2 - Acidosis Status: Acute Plan: Resolved (5) Hypertension ICD Codes: I10 - Essential (primary) hypertension Status: Chronic Plan: Well controlled (6) Weakness ICD Codes: R53.1 - Weakness Status: Acute Plan: Patient is very deconditioned and plan is for rehab (Roberto Benitez MD) Problem Qualifiers (1) Chronic renal disease: Qualified Codes: N18.3 - Chronic kidney disease, stage 3 (moderate) (2) Hypertension: Qualified Codes: I10 - Essential (primary) hypertension Raysa Bhakta Oct 23, 2017 09:56 Roberto Benitez MD Oct 24, 2017 09:19
--- NOTE | 2017-10-23 12:08 | HHI.PR ---
Subjective Remarks Resting in bed, bronchoscopy yesterday. Objective Vital Signs Date Time Temp Pulse Resp B/P (MAP) Pulse Ox O2 Delivery O2 Flow Rate FiO2 10/23/17 08:21 4 Nasal Cannula 2.00 10/23/17 08:00 97.6 74 20 154/68 (96) 91 10/23/17 05:26 97 Nasal Cannula 4.00 10/23/17 04:00 98.2 69 22 179/87 (117) 93 10/23/17 00:00 97.6 58 20 150/70 (96) 93 10/22/17 22:00 Nasal Cannula 4.00 10/22/17 21:15 95 Nasal Cannula 4.00 10/22/17 21:09 98 Partial Rebreather 15.00 10/22/17 20:02 77 10/22/17 20:00 Non-Rebreather 10/22/17 20:00 98.1 66 15 119/88 (98) 94 10/22/17 16:00 97.5 76 20 157/74 (101) 97 10/22/17 13:45 98.5 85 20 150/67 (94) 95 10/22/17 13:15 99 16 145/67 (93) 94 Nasal Cannula 4 10/22/17 13:00 96 24 136/63 (87) 94 Nasal Cannula 4 10/22/17 12:45 100 24 137/61 (86) 93 Nasal Cannula 4 10/22/17 12:30 97 22 137/61 (86) 93 Nasal Cannula 4 10/22/17 12:15 103 22 131/55 (80) 93 Nasal Cannula 4 I/O 10/22/17 10/22/17 10/22/17 10/23/17 10/23/17 10/23/17 07:00 15:00 23:00 07:00 15:00 23:00 Intake Total 460 ml 480 ml Output Total 800 ml 200 ml 275 ml 900 ml Balance -340 ml -200 ml -275 ml -420 ml Intake Oral 460 ml 480 ml Output Urine Total 800 ml 200 ml 275 ml 900 ml # Voids 2 2 Result Diagram: 10/20/17 0610 10/21/172047 Objective Remarks GENERAL: This is a well-nourished, elderly male resting in bed on 3 liters SKIN: No rashes, ecchymotic area to B/L UE HEAD: Atraumatic. Normocephalic. No temporal or scalp tenderness. EYES: Pupils equal round and reactive. Extraocular motions intact. No scleral icterus. No injection or drainage. ENT: Nose without bleeding, purulent drainage NECK: Trachea midline. No JVD CARDIOVASCULAR: Regular rate and rhythm without murmurs, gallops, or rubs. RESPIRATORY: equal B/L Diminished b/l bases GASTROINTESTINAL: Abdomen soft, non-tender, nondistended. MUSCULOSKELETAL: trace edema NEUROLOGICAL: alert oriented Medications and IVs Current Medications Medications (Trade) Dose Ordered Sig/Nayeli Route Start Time Stop Time Status Last Admin (Proair Hfa Inh) 2 puff Q6HR INH 10/13/17 06:00 10/23/17 06:01 (Norvasc) 10 mg DAILY PO 10/13/17 09:00 10/23/17 09:27 (Cardura) 8 mg DAILY PO 10/13/17 09:00 10/23/17 09:27 (Proscar) 5 mg DAILY PO 10/13/17 09:00 10/23/17 09:27 (Breo Ellipta 200-25 Inh) 1 puff DAILY INH 10/13/17 09:00 10/23/17 09:29 (Prinivil) 5 mg DAILY PO 10/13/17 09:00 10/23/17 09:27 (Elvie-Colace) 1 tab BID PO 10/13/17 09:00 10/23/17 09:27 (Flomax) 0.4 mg HS PO 10/13/17 21:00 10/22/17 21:10 (Desyrel) 100 mg HS PO 10/13/17 21:00 10/22/17 21:10 (NS Flush) 2 ml UNSCH PRN IV FLUSH 10/13/17 06:00 (NS Flush) 2 ml BID IV FLUSH 10/13/17 09:00 10/22/17 21:09 (Narcan Inj) 0.4 mg UNSCH PRN IV PUSH 10/13/17 06:00 (Oscal) 500 mg Q12HR PO 10/13/17 09:00 10/23/17 09:27 (Mag-Ox) 400 mg Q12HR PO 10/13/17 09:00 10/23/17 09:27 (Pill Splitter) 1 ea UNSCH PRN OTHER 10/13/17 06:15 (Duoneb Neb) 1 ampule Q2HR NEB PRN NEB 10/13/17 09:30 10/23/17 08:17 Sodium Chloride 1,000 ml @ 83 mls/hr Q12H3M IV 10/13/17 15:00 10/22/17 21:09 (Symbicort 160-4.5 Mcg Inh) 2 puff Q12HR INH 10/13/17 21:00 10/23/17 09:29 (Apresoline) 10 mg Q6HR PRN PO 10/14/17 08:30 10/23/17 04:24 (Habitrol 21 Mg Patch.24 Hr) 1 patch DAILY T-DERMAL 10/15/17 09:00 10/23/17 09:27 Miscellaneous Information 1 DAILY T-DERMAL 10/15/17 09:00 10/22/17 09:00 (Ativan) 1 mg Q6HR PO 10/14/17 12:00 10/23/17 06:01 (Lopressor) 25 mg BID PO 10/14/17 21:00 10/23/17 09:27 (Haldol Inj) 5 mg Q6H PRN IM 10/15/17 09:45 (Ativan) 1 mg Q4H PRN PO 10/15/17 10:00 10/18/17 08:54 (Ativan Inj) 1 mg Q4H PRN IV PUSH 10/15/17 10:00 10/15/17 18:24 (Ativan) 2 mg Q2H PRN PO 10/15/17 10:00 (Ativan Inj) 2 mg Q2H PRN IV PUSH 10/15/17 10:00 10/15/17 10:36 (Ativan Inj) 2 mg Q1H PRN IV PUSH 10/15/17 10:00 10/15/17 12:02 (Ativan Inj) 2 mg Q15M PRN IV PUSH 10/15/17 10:00 (Romazicon Inj) 0.2 mg Q1M PRN IV PUSH 10/15/17 10:00 (Deltasone) 10 mg BID PO 10/16/17 21:00 10/23/17 20:59 Future Hold 10/19/17 08:53 (Mucomyst 10% Neb) 2 ml Q6HR NEB NEB 10/19/17 22:00 10/23/17 08:17 (Catapres) 0.1 mg Q8HR PO 10/21/17 22:00 10/23/17 06:01 Sodium Chloride 1,000 ml @ 0 mls/hr Q0M IV 10/21/17 18:28 (Albuterol Concentrated Neb) 2.5 mg BILLBOARD INSTALLER NEB 10/21/17 18:30 10/25/17 18:29 Lactated Ringer's 1,000 ml @ 30 mls/hr Q24H PRN IV 10/21/17 20:00 10/24/17 19:59 Sodium Chloride 500 ml @ 30 mls/hr [id number] PRN IV 10/21/17 20:00 10/24/17 19:59 (Betadine 5% Antisepsis Kit) 1 applic BILLBOARD INSTALLER PRN EACH NARE 10/21/17 20:00 10/24/17 19:59 (Chlorhexidine 2% Cloth) 3 pack BILLBOARD INSTALLER PRN TOPICAL 10/21/17 20:00 10/24/17 19:59 (NovoLIN R INJ) See Protocol Table ... BILLBOARD INSTALLER PRN SQ 10/21/17 20:00 10/24/17 19:59 Miscellaneous Information ALL NURSING DEPARTME... UNSCH PRN .XX 10/22/17 12:30 10/23/17 12:29 Assessment and Plan Problem List: (1) Left lower lobe pneumonia ICD Codes: J18.1 - Lobar pneumonia, unspecified organism Status: Acute Plan: Followed by pulmonary Bronchoscopy yesterday (2) COPD exacerbation ICD Codes: J44.1 - COPD exacerbation Status: Acute Plan: Pulmonary following Bronchodilators, nebs tx, o2 supplement (3) Chronic renal disease ICD Codes: N18.9 - Chronic kidney disease Status: Chronic Plan: Renal following, History of nephrectomy r/t carcinoma. Avoid nephro toxins PO fluids encouraged (4) Hypertension ICD Codes: I10 - Essential (primary) hypertension Status: Chronic Plan: BP better after clonidine added. (5) Alcohol withdrawal ICD Codes: F10.239 - Alcohol dependence with withdrawal, unspecified Plan: resolved (6) Weakness ICD Codes: R53.1 - Weakness Status: Acute Plan: Rehab at [place] Discharge Planning DC in am if ok with pulmonary 3008 on chart Problem Qualifiers (1) Left lower lobe pneumonia: Qualified Codes: J69.0 - Pneumonitis due to inhalation of food and vomit (2) Chronic renal disease: Qualified Codes: N18.3 - Chronic kidney disease, stage 3 (moderate) (3) Hypertension: Qualified Codes: I10 - Essential (primary) hypertension Sulam Macias Oct 23, 2017 12:08
[2017-10-23] MEDS: SODIUM CHLORIDE 0.9% FLUSH 10 ML FLUSH IV FLUSH SCH ×2 (14:15→20:53)
--- NOTE | 2017-10-23 19:47 | HHI.PR ---
Subjective Remarks . Awake and on O2 2 L. Sats 95. Chest X ray shows some improved aeration on left. No Fever. No change in SOB. Has some pain Objective Vital Signs Date Time Temp Pulse Resp B/P (MAP) Pulse Ox O2 Delivery O2 Flow Rate FiO2 10/23/17 19:27 97.9 79 26 120/60 (80) 89 10/23/17 16:00 97.9 79 26 126/60 (82) 89 10/23/17 14:31 Nasal Cannula 4.00 10/23/17 14:09 88 10/23/17 12:00 97.9 70 26 144/64 (90) 91 10/23/17 08:21 4 Nasal Cannula 2.00 10/23/17 08:00 97.6 74 20 154/68 (96) 91 10/23/17 05:26 97 Nasal Cannula 4.00 10/23/17 04:00 98.2 69 22 179/87 (117) 93 10/23/17 00:00 97.6 58 20 150/70 (96) 93 10/22/17 22:00 Nasal Cannula 4.00 10/22/17 21:15 95 Nasal Cannula 4.00 10/22/17 21:09 98 Partial Rebreather 15.00 10/22/17 20:02 77 10/22/17 20:00 Non-Rebreather 10/22/17 20:00 98.1 66 15 119/88 (98) 94 I/O 10/22/17 10/22/17 10/22/17 10/23/17 10/23/17 10/23/17 07:00 15:00 23:00 07:00 15:00 23:00 Intake Total 460 ml 480 ml 1342 ml Output Total 800 ml 200 ml 275 ml 900 ml 252 ml Balance -340 ml -200 ml -275 ml -420 ml 1090 ml Intake Oral 460 ml 480 ml 480 ml IV Total 862 ml Output Urine Total 800 ml 200 ml 275 ml 900 ml 252 ml # Voids 2 2 3 Result Diagram: 10/20/1760910/21/172047 Objective Remarks GENERAL: This elderly, averagely built, white male is in no acute distress. Pallor noted. No cyanosis. There is no peripheral edema. No lymphadenopathy. HEENT: Head normocephalic. Pupils are reactive and equal. Tongue is moist. Nasal mucosa clear. NECK: No bruits. No venous distension . Trachea midline. CHEST: Equal movements with decreased breath sounds at left base. HEART: Sounds were regular S1 and S2 with no murmur, no S3. ABDOMEN: Soft, protuberant without masses. No organomegaly or tenderness. Bowel sounds are active. EXTREMITIES: Decreased peripheral pulses and no edema. Reflexes are 1+. Neuro Intact,Alert and oriented. Assessment and Plan Assessment and Plan IMPRESSION: 1. Chronic obstructive pulmonary disease with acute exacerbation. 2. Dehydration and acute kidney injury. 3. History of hypertension. 4. Left basilar pneumonia. 5. Left lung atelectasis Plan : 1. D/C Rocephin 2. Add Ceftin 500 mg bid X 7 days 3. O2 at 2 L. 4. PT evaluation 5. Duoneb nebs qid. 6. Resume heparin 5000U BID 7. Mucomyst 10 % 2 CC qid. 8. CPT and drainage qid 9. Prednisone 20 mg daily Vaibhav Tubbs MD Oct 23, 2017 19:47
[2017-10-23] MEDS: CEFUROXIME AXETIL 500 MG TAB PO SCH (20:54)
[2017-10-23] MEDS: TAMSULOSIN HCL 0.4 MG CAP PO SCH (20:54)
[2017-10-23] MEDS: traZODone HCL 100 MG TAB PO SCH (20:54)
[2017-10-24] VITALS (10 sets, daily range): BP systolic 133–167; BP diastolic 67–83; PULSE 63–86; RESP 18–20; TEMP 97.8–98.8; O2SAT 89–93
[2017-10-24] MEDS: ALBUTEROL SULFATE 90 MCG/ACT HFA 8 GM INHALER INH SCH ×4 (00:01→18:00)
[2017-10-24] MEDS: cloNIDine HCL 0.1 MG TAB PO SCH ×4 (00:02→21:38)
[2017-10-24] MEDS: LORazepam 1 MG TAB PO SCH ×4 (00:08→18:00)
[2017-10-24] MEDS: RESP: ALBUTEROL 2.5 MG/IPRATROPIUM 0.5 MG NEB (PRN) NEB (02:37)
[2017-10-24] MEDS: SODIUM CHLOR 0.9% 1000 ML INJ 1,000 ML IV SCH ×2 (08:42→20:45)
[2017-10-24] MEDS: NICOTINE 21 MG/24 HR PATCH T-DERMAL SCH (08:48)
[2017-10-24] MEDS: DOXAZOSIN MESYLATE 4 MG TAB PO SCH (08:48)
[2017-10-24] MEDS: CEFUROXIME AXETIL 500 MG TAB PO SCH ×2 (08:48→21:38)
[2017-10-24] MEDS: FINASTERIDE 5 MG TAB PO SCH (08:49)
[2017-10-24] MEDS: METOPROLOL TARTRATE 25 MG TAB PO SCH ×2 (08:49→21:38)
[2017-10-24] MEDS: DOCUSATE SODIUM 50 MG/SENNA 8.6 MG TAB PO SCH ×2 (08:49→21:00)
[2017-10-24] MEDS: CALCIUM CARBONATE 1.25 GM (CA 500 MG) TAB PO SCH ×2 (08:49→21:38)
[2017-10-24] MEDS: MAGNESIUM OXIDE 400 MG TAB PO SCH ×2 (08:49→21:38)
[2017-10-24] MEDS: BUDESONIDE-FORMOTEROL 160/4.5 MCG INHALER INH SCH ×2 (08:52→21:00)
[2017-10-24] MEDS: LISINOPRIL 5 MG TAB PO SCH (08:52)
[2017-10-24] MEDS: FLUTICASONE 200 MCG/VILANTEROL 25 MCG INHALER INH SCH (08:52)
[2017-10-24] MEDS: SODIUM CHLORIDE 0.9% FLUSH 10 ML FLUSH IV FLUSH SCH ×2 (08:56→21:38)
[2017-10-24] MEDS: REMOVE OLD PATCH T-DERMAL SCH (08:56)
--- NOTE | 2017-10-24 11:18 | HHI.NPPN ---
Subjective Complaints: Shortness of Breath General Problems: Edema, Hypertension Renal Failure: Chronic, Acute History of Present Illness Patient is a 72-year-old male presents to the emergency department by EMS transport from home s/p fall after getting out of bed and being to weak to get up. Patient states he has chronic COPD and this morning was getting up out of bed without his walker to go to the bathroom and noticed that when he stood up that both of his legs are weak causing him to fall to the floor. Denies any fevers, CP, nausea, vomiting or diarrhea. 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 Nephrology was consulted of hypocalcemia, electrolyte imbalance, and CKD, Was found to have a calcium level of 6.6, potassium level of 2.8, creatinine of 1.74 and GFR of 37 ml/min. Patient drinks 12 oz of 94 proof GIN daily. Additional Remarks Patient is doing better, has mild SOB. Review of Systems Respiratory Lungs: SOB Respiratory Remarks improved Cardiovascular Cardiac: Edema Gastrointestinal GI Remarks Denies abdominal pain Objective Data Data Vital Signs Date Time Temp Pulse Resp B/P (MAP) Pulse Ox O2 Delivery O2 Flow Rate FiO2 10/24/17 04:00 98.6 75 18 137/69 (91) 93 10/24/17 04:00 74 10/24/17 00:00 Nasal Cannula 4.00 10/24/17 00:00 69 10/24/17 00:00 98.6 68 18 148/67 (94) 92 10/23/17 20:38 91 Nasal Cannula 4.00 10/23/17 20:00 74 10/23/17 20:00 98.8 86 20 143/69 (93) 92 10/23/17 19:27 97.9 79 26 120/60 (80) 89 10/23/17 16:00 97.9 79 26 126/60 (82) 89 10/23/17 14:31 Nasal Cannula 4.00 10/23/17 14:09 88 10/23/17 12:00 97.9 70 26 144/64 (90) 91 -: 10/20/17 0610 10/21/178 Physical Exam General Appearance: Anxious Eyes Eye Exam: Pupils Equal Pulmonary Resp Exam: Rhonchi, Sputum, Decreased Bases Cardiology CV Exam: Regular Gastrointestinal/Abdomen GI Exam: Soft, Non-Tender, Bowel Sounds Present Genitourinary Exam: Flank Non-Tender Integumentary Skin Exam: Clear, Warm Extremeties Extremities Exam: Moderate Edema Neurologic Neuro Exam: Alert, Awake Assessment/Plan Problem List: (1) Chronic renal disease ICD Codes: N18.9 - Chronic kidney disease Status: Chronic Plan: Patient with history of right partial nephrectomy for tumor. Most likely has CKD from HTN or renal vascular disease Patient has BERE, possibly pre renal or ATN. Proteinuria noted Plan Creatinine is stable Follow the urine out put and BMP. Encourage oral intake. Follow the urine out put and BMP. No new BMP today, encourage oral fluids. (2) Disorder of electrolytes ICD Codes: E87.8 - Other disorders of electrolyte and fluid balance, not elsewhere classified Status: Acute Plan: Calcium found to be at 6.6 and Potassium of 2.8 on admission Patient has received replacement and now WNL (3) COPD exacerbation ICD Codes: J44.1 - COPD exacerbation Status: Acute Plan: Continue O2 Mild SOB (4) Lactic acidosis ICD Codes: E87.2 - Acidosis Status: Acute Plan: Resolved (5) Hypertension ICD Codes: I10 - Essential (primary) hypertension Status: Chronic Plan: Well controlled (6) Weakness ICD Codes: R53.1 - Weakness Status: Acute Plan: Patient is very deconditioned and plan is for rehab Problem Qualifiers (1) Chronic renal disease: Qualified Codes: N18.3 - Chronic kidney disease, stage 3 (moderate) (2) Hypertension: Qualified Codes: I10 - Essential (primary) hypertension Roberto Benitez MD Oct 24, 2017 11:18
--- NOTE | 2017-10-24 11:43 | HHI.PR ---
Subjective Remarks Still wheezing slightly improved post bronch. Still dropped sats into 80s with O2 off during breakfast. Objective Vital Signs Date Time Temp Pulse Resp B/P (MAP) Pulse Ox O2 Delivery O2 Flow Rate FiO2 10/24/17 04:00 98.6 75 18 137/69 (91) 93 10/24/17 04:00 74 10/24/17 00:00 Nasal Cannula 4.00 10/24/17 00:00 69 10/24/17 00:00 98.6 68 18 148/67 (94) 92 10/23/17 20:38 91 Nasal Cannula 4.00 10/23/17 20:00 74 10/23/17 20:00 98.8 86 20 143/69 (93) 92 10/23/17 19:27 97.9 79 26 120/60 (80) 89 10/23/17 16:00 97.9 79 26 126/60 (82) 89 10/23/17 14:31 Nasal Cannula 4.00 10/23/17 14:09 88 10/23/17 12:00 97.9 70 26 144/64 (90) 91 I/O 10/23/17 10/23/17 10/23/17 10/24/17 10/24/17 10/24/17 07:00 15:00 23:00 07:00 15:00 23:00 Intake Total 480 ml 1342 ml Output Total 900 ml 252 ml 1050 ml Balance -420 ml 1090 ml -1050 ml Intake Oral 480 ml 480 ml IV Total 862 ml Output Urine Total 900 ml 252 ml 1050 ml # Voids 3 Result Diagram: 10/20/17 0610 10/21/17 2048 Imaging Last Impressions Chest X-Ray 10/22/17 0000 Signed Impressions: Service Date/Time: October 12:10 - CONCLUSION: 1. Left basilar consolidation and pleural effusion slightly improved compared to previous. 2. Continued right basilar infiltrate. Yfn Ly MD Chest CT 10/13/17 1313 Signed Impressions: Service Date/Time: Friday, October 13, 2017 15:15 - CONCLUSION: 1. Left upper lobe and left lower lobe consolidation likely infiltrate. Recommend treatment and followup to resolution. 2. Mild emphysema without mass or concerning nodule. 3. Minimal coronary artery calcifications. Allen Alexander MD Renal Ultrasound 10/13/17 0000 Signed Impressions: Service Date/Time: Friday, October 13, 2017 12:59 - CONCLUSION: 1. Kidneys are mildly echogenic which can be seen with early medical renal disease. 2. Possible nonobstructing calculi in the right kidney. 3. Left sided renal cysts. Allen Alexander MD Lower Extremity Ultrasound 10/13/17 0000 Signed Impressions: Service Date/Time: Friday, October 13, 2017 04:08 - CONCLUSION: 1. No sonographic evidence for right lower extremity DVT. Pedro Bunn MD Ankle X-Ray 10/13/17 0000 Signed Impressions: Service Date/Time: Friday, October 13, 2017 03:58 - CONCLUSION: 1. Diffuse soft tissue swelling without radiopaque foreign bodies, acute fracture or bony erosion. Pedro Bunn MD Procedures Bronch on 10/22/17 Objective Remarks General - Lethargic but seems less confused Resp - Scattered wheezes and rales; CV - RRR without murmur, rub or gallop Abd - Soft and nontender MS - FROM without deformity Medications and IVs Current Medications Medications (Trade) Dose Ordered Sig/Nayeli Route Start Time Stop Time Status Last Admin (Proair Hfa Inh) 2 puff Q6HR INH 10/13/17 06:00 10/24/17 05:35 (Norvasc) 10 mg DAILY PO 10/13/17 09:00 10/24/17 08:49 (Cardura) 8 mg DAILY PO 10/13/17 09:00 10/24/17 08:48 (Proscar) 5 mg DAILY PO 10/13/17 09:00 10/24/17 08:49 (Breo Ellipta 200-25 Inh) 1 puff DAILY INH 10/13/17 09:00 10/24/17 08:52 (Prinivil) 5 mg DAILY PO 10/13/17 09:00 10/24/17 08:52 (Elvie-Colace) 1 tab BID PO 10/13/17 09:00 10/24/17 08:49 (Flomax) 0.4 mg HS PO 10/13/17 21:00 10/23/17 20:54 (Desyrel) 100 mg HS PO 10/13/17 21:00 10/23/17 20:54 (NS Flush) 2 ml UNSCH PRN IV FLUSH 10/13/17 06:00 (NS Flush) 2 ml BID IV FLUSH 10/13/17 09:00 10/24/17 08:56 (Narcan Inj) 0.4 mg UNSCH PRN IV PUSH 10/13/17 06:00 (Oscal) 500 mg Q12HR PO 10/13/17 09:00 10/24/17 08:49 (Mag-Ox) 400 mg Q12HR PO 10/13/17 09:00 10/24/17 08:49 (Pill Splitter) 1 ea UNSCH PRN OTHER 10/13/17 06:15 (Duoneb Neb) 1 ampule Q2HR NEB PRN NEB 10/13/17 09:30 10/24/17 02:37 Sodium Chloride 1,000 ml @ 83 mls/hr Q12H3M IV 10/13/17 15:00 10/22/17 21:09 (Symbicort 160-4.5 Mcg Inh) 2 puff Q12HR INH 10/13/17 21:00 10/24/17 08:52 (Apresoline) 10 mg Q6HR PRN PO 10/14/17 08:30 10/23/17 04:24 (Habitrol 21 Mg Patch.24 Hr) 1 patch DAILY T-DERMAL 10/15/17 09:00 10/24/17 08:48 Miscellaneous Information 1 DAILY T-DERMAL 10/15/17 09:00 10/23/17 09:00 (Ativan) 1 mg Q6HR PO 10/14/17 12:00 10/24/17 05:35 (Lopressor) 25 mg BID PO 10/14/17 21:00 10/24/17 08:49 (Haldol Inj) 5 mg Q6H PRN IM 10/15/17 09:45 (Ativan) 1 mg Q4H PRN PO 10/15/17 10:00 10/18/17 08:54 (Ativan Inj) 1 mg Q4H PRN IV PUSH 10/15/17 10:00 10/15/17 18:24 (Ativan) 2 mg Q2H PRN PO 10/15/17 10:00 (Ativan Inj) 2 mg Q2H PRN IV PUSH 10/15/17 10:00 10/15/17 10:36 (Ativan Inj) 2 mg Q1H PRN IV PUSH 10/15/17 10:00 10/15/17 12:02 (Ativan Inj) 2 mg Q15M PRN IV PUSH 10/15/17 10:00 (Romazicon Inj) 0.2 mg Q1M PRN IV PUSH 10/15/17 10:00 (Catapres) 0.1 mg Q8HR PO 10/21/17 22:00 10/24/17 05:35 Sodium Chloride 1,000 ml @ 0 mls/hr Q0M IV 10/21/17 18:28 (Albuterol Concentrated Neb) 2.5 mg RETAIL CONSULTANT NEB 10/21/17 18:30 10/25/17 18:29 Lactated Ringer's 1,000 ml @ 30 mls/hr Q24H PRN IV 10/21/17 20:00 10/24/17 19:59 Sodium Chloride 500 ml @ 30 mls/hr [id number] PRN IV 10/21/17 20:00 10/24/17 19:59 (Betadine 5% Antisepsis Kit) 1 applic RETAIL CONSULTANT PRN EACH NARE 10/21/17 20:00 10/24/17 19:59 (Chlorhexidine 2% Cloth) 3 pack RETAIL CONSULTANT PRN TOPICAL 10/21/17 20:00 10/24/17 19:59 (NovoLIN R INJ) See Protocol Table ... RETAIL CONSULTANT PRN SQ 10/21/17 20:00 10/24/17 19:59 (Ceftin) 500 mg Q12HR PO 10/23/17 21:00 10/24/17 08:48 Assessment and Plan Problem List: (1) Left lower lobe pneumonia ICD Codes: J18.1 - Lobar pneumonia, unspecified organism Status: Acute Plan: F/U Pulm recommendation and cont IV antibiotics. F/U cultures post bronch (2) Alcohol abuse ICD Codes: F10.10 - Alcohol abuse Status: Chronic Plan: Cont support (3) COPD exacerbation ICD Codes: J44.1 - COPD exacerbation Status: Acute Plan: F/U Pulm recommendations and cont antibiotics (4) Hypertension ICD Codes: I10 - Essential (primary) hypertension Status: Chronic Plan: Cont current regimen with PRN meds for SBP over 160 mm/Hg (5) Chronic renal disease ICD Codes: N18.9 - Chronic kidney disease Status: Chronic Plan: Avoid nephrotoxic agents and cont to monitor closely. F/U renal recommendations. Assessment and Plan Cont treatment and F/U SQL ENGINEER study and recommendations. Cont antibiotics and Pulm recommendations. Discussed Condition With Patient and computer systems manager Planning Rehab Vs SNF Problem Qualifiers (1) Left lower lobe pneumonia: Qualified Codes: J69.0 - Pneumonitis due to inhalation of food and vomit (2) Hypertension: Qualified Codes: I10 - Essential (primary) hypertension (3) Chronic renal disease: Qualified Codes: N18.3 - Chronic kidney disease, stage 3 (moderate) Donovan Villeda Oct 24, 2017 11:43
[2017-10-24] MEDS: TAMSULOSIN HCL 0.4 MG CAP PO SCH (21:38)
[2017-10-24] MEDS: traZODone HCL 100 MG TAB PO SCH (21:38)
[2017-10-25] VITALS (13 sets, daily range): BP systolic 122–164; BP diastolic 63–82; PULSE 71–82; RESP 16–28; TEMP 97.3–98.6; O2SAT 83–98
[2017-10-25] MEDS: LORazepam 1 MG TAB PO SCH ×4 (00:29→13:10)
[2017-10-25] MEDS: ALBUTEROL SULFATE 90 MCG/ACT HFA 8 GM INHALER INH SCH ×3 (06:38→12:00)
[2017-10-25] MEDS: cloNIDine HCL 0.1 MG TAB PO SCH ×3 (06:38→20:11)
[2017-10-25] MEDS: FLUTICASONE 200 MCG/VILANTEROL 25 MCG INHALER INH SCH (08:17)
[2017-10-25] MEDS: BUDESONIDE-FORMOTEROL 160/4.5 MCG INHALER INH SCH ×2 (08:17→20:12)
[2017-10-25] MEDS: DOCUSATE SODIUM 50 MG/SENNA 8.6 MG TAB PO SCH ×2 (08:21→20:11)
[2017-10-25] MEDS: DOXAZOSIN MESYLATE 4 MG TAB PO SCH (08:21)
[2017-10-25] MEDS: LISINOPRIL 5 MG TAB PO SCH (08:21)
[2017-10-25] MEDS: FINASTERIDE 5 MG TAB PO SCH (08:21)
[2017-10-25] MEDS: CALCIUM CARBONATE 1.25 GM (CA 500 MG) TAB PO SCH ×2 (08:21→20:11)
[2017-10-25] MEDS: CEFUROXIME AXETIL 500 MG TAB PO SCH (08:21)
[2017-10-25] MEDS: METOPROLOL TARTRATE 25 MG TAB PO SCH ×2 (08:21→20:11)
[2017-10-25] MEDS: MAGNESIUM OXIDE 400 MG TAB PO SCH (08:21)
[2017-10-25] MEDS: REMOVE OLD PATCH T-DERMAL SCH (08:22)
[2017-10-25] MEDS: NICOTINE 21 MG/24 HR PATCH T-DERMAL SCH (08:22)
[2017-10-25] MEDS: SODIUM CHLOR 0.9% 1000 ML INJ 1,000 ML IV SCH ×2 (08:48→20:11)
[2017-10-25] MEDS: SODIUM CHLORIDE 0.9% FLUSH 10 ML FLUSH IV FLUSH SCH ×2 (09:00→20:11)
[2017-10-25] MEDS: RESP: ALBUTEROL 2.5 MG/IPRATROPIUM 0.5 MG NEB (PRN) NEB (09:27)
--- NOTE | 2017-10-25 10:40 | HHI.PR ---
Subjective Remarks Now with decreased BS at bases which is improved. He tells me breathing is improved. Objective Vital Signs Date Time Temp Pulse Resp B/P (MAP) Pulse Ox O2 Delivery O2 Flow Rate FiO2 10/25/17 09:30 83 Nasal Cannula 5.00 10/25/17 08:44 Nasal Cannula 4.00 10/25/17 08:14 98.6 71 20 131/72 (91) 88 10/25/17 04:00 97.3 72 22 135/63 (87) 92 10/25/17 00:00 97.6 72 18 136/70 (92) 91 10/24/17 21:45 91 Nasal Cannula 6.00 10/24/17 20:00 97.8 71 18 133/72 (92) 91 10/24/17 20:00 Nasal Cannula 6.00 91 Humidified 10/24/17 19:30 92 Nasal Cannula 4.00 10/24/17 17:54 98.7 70 20 151/70 (97) 90 10/24/17 17:53 98.8 66 20 135/68 (90) 93 10/24/17 16:20 Nasal Cannula 4.00 10/24/17 16:16 63 10/24/17 11:58 92 Nasal Cannula 5.00 I/O 10/24/17 10/24/17 10/24/17 10/25/17 10/25/17 10/25/17 07:00 15:00 23:00 07:00 15:00 23:00 Intake Total 1080 ml 480 ml Output Total 1050 ml 950 ml 900 ml Balance -1050 ml 130 ml -420 ml Intake Oral 1080 ml 480 ml Output Urine Total 1050 ml 950 ml 900 ml # Voids 2 # Bowel Movements 1 Result Diagram: 10/21/172047 Procedures Bronch on 10/22/17 Objective Remarks General - Less lethargic Resp - Decreased BS at bases; CV - RRR without murmur, rub or gallop Abd - Soft and nontender MS - FROM without deformity, trace edema Medications and IVs Current Medications Medications (Trade) Dose Ordered Sig/Nayeli Route Start Time Stop Time Status Last Admin (Proair Hfa Inh) 2 puff Q6HR INH 10/13/17 06:00 10/25/17 06:38 (Norvasc) 10 mg DAILY PO 10/13/17 09:00 10/25/17 08:21 (Cardura) 8 mg DAILY PO 10/13/17 09:00 10/25/17 08:21 (Proscar) 5 mg DAILY PO 10/13/17 09:00 10/25/17 08:21 (Breo Ellipta 200-25 Inh) 1 puff DAILY INH 10/13/17 09:00 10/25/17 08:17 (Prinivil) 5 mg DAILY PO 10/13/17 09:00 10/25/17 08:21 (Elvie-Colace) 1 tab BID PO 10/13/17 09:00 10/25/17 08:21 (Flomax) 0.4 mg HS PO 10/13/17 21:00 10/24/17 21:38 (Desyrel) 100 mg HS PO 10/13/17 21:00 10/24/17 21:38 (NS Flush) 2 ml UNSCH PRN IV FLUSH 10/13/17 06:00 (NS Flush) 2 ml BID IV FLUSH 10/13/17 09:00 10/25/17 09:00 (Narcan Inj) 0.4 mg UNSCH PRN IV PUSH 10/13/17 06:00 (Oscal) 500 mg Q12HR PO 10/13/17 09:00 10/25/17 08:21 (Mag-Ox) 400 mg Q12HR PO 10/13/17 09:00 10/25/17 08:21 (Pill Splitter) 1 ea UNSCH PRN OTHER 10/13/17 06:15 (Duoneb Neb) 1 ampule Q2HR NEB PRN NEB 10/13/17 09:30 10/25/17 09:27 Sodium Chloride 1,000 ml @ 83 mls/hr Q12H3M IV 10/13/17 15:00 10/22/17 21:09 (Symbicort 160-4.5 Mcg Inh) 2 puff Q12HR INH 10/13/17 21:00 10/25/17 08:17 (Apresoline) 10 mg Q6HR PRN PO 10/14/17 08:30 10/23/17 04:24 (Habitrol 21 Mg Patch.24 Hr) 1 patch DAILY T-DERMAL 10/15/17 09:00 10/25/17 08:22 Miscellaneous Information 1 DAILY T-DERMAL 10/15/17 09:00 10/25/17 08:22 (Ativan) 1 mg Q6HR PO 10/14/17 12:00 10/25/17 06:38 (Lopressor) 25 mg BID PO 10/14/17 21:00 10/25/17 08:21 (Haldol Inj) 5 mg Q6H PRN IM 10/15/17 09:45 (Ativan) 1 mg Q4H PRN PO 10/15/17 10:00 10/18/17 08:54 (Ativan Inj) 1 mg Q4H PRN IV PUSH 10/15/17 10:00 10/15/17 18:24 (Ativan) 2 mg Q2H PRN PO 10/15/17 10:00 (Ativan Inj) 2 mg Q2H PRN IV PUSH 10/15/17 10:00 10/15/17 10:36 (Ativan Inj) 2 mg Q1H PRN IV PUSH 10/15/17 10:00 10/15/17 12:02 (Ativan Inj) 2 mg Q15M PRN IV PUSH 10/15/17 10:00 (Romazicon Inj) 0.2 mg Q1M PRN IV PUSH 10/15/17 10:00 (Catapres) 0.1 mg Q8HR PO 10/21/17 22:00 10/25/17 06:38 Sodium Chloride 1,000 ml @ 0 mls/hr Q0M IV 10/21/17 18:28 (Albuterol Concentrated Neb) 2.5 mg PHOTO EDITOR NEB 10/21/17 18:30 10/25/17 18:29 (Ceftin) 500 mg Q12HR PO 10/23/17 21:00 10/25/17 08:21 Assessment and Plan Problem List: (1) Left lower lobe pneumonia ICD Codes: J18.1 - Lobar pneumonia, unspecified organism Status: Acute Plan: F/U Pulm recommendation and cont IV antibiotics. Breathing better post bronch (2) Alcohol abuse ICD Codes: F10.10 - Alcohol abuse Status: Chronic Plan: Cont support (3) COPD exacerbation ICD Codes: J44.1 - COPD exacerbation Status: Acute Plan: F/U Pulm recommendations and cont antibiotics (4) Hypertension ICD Codes: I10 - Essential (primary) hypertension Status: Chronic Plan: Cont current regimen with PRN meds for SBP over 160 mm/Hg (5) Chronic renal disease ICD Codes: N18.9 - Chronic kidney disease Status: Chronic Plan: Avoid nephrotoxic agents and cont to monitor closely. F/U renal recommendations. Recheck renal labs. 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 Cont antibiotics and Pulm recommendations. PT and OT consulted for eval for rehab. Discussed Condition With Patient Discharge Planning Rehab vs SNF Problem Qualifiers (1) Left lower lobe pneumonia: Qualified Codes: J69.0 - Pneumonitis due to inhalation of food and vomit (2) Hypertension: Qualified Codes: I10 - Essential (primary) hypertension (3) Chronic renal disease: Qualified Codes: N18.3 - Chronic kidney disease, stage 3 (moderate) Donovan Villeda Oct 25, 2017 10:40
--- NOTE | 2017-10-25 11:01 | RADRPT ---
EXAM DATE/TIME: 10/25/2017 10:20 [facility] COMPARISON: CHEST SINGLE AP, October 22, 2017, 12:10. INDICATIONS : Short of breath. MEDICAL HISTORY : Chronic obstructive pulmonary disease. Renal cell carcinoma. Renal calculi. SURGICAL HISTORY : Nephrectomy, right. ENCOUNTER: Subsequent ACUITY: 3 days PAIN SCORE: 0/10 LOCATION: Bilateral chest FINDINGS: Chest is unchanged in appearance. There is persistent bibasilar airspace disease with dense consolida tion in the left base. Heart and mediastinal structures are stable. CONCLUSION: Persistent bibasilar airspace disease without significant improvement. Gavino Trotter MD on October 25, 2017 at 10:59 Board Certified Radiologist. This report was verified electronically.
--- NOTE | 2017-10-25 12:03 | HHI.NPPN ---
Subjective Complaints: Shortness of Breath General Problems: Edema, Hypertension Renal Failure: Chronic, Acute History of Present Illness Patient is a 72-year-old male presents to the emergency department by EMS transport from home s/p fall after getting out of bed and being to weak to get up. Patient states he has chronic COPD and this morning was getting up out of bed without his walker to go to the bathroom and noticed that when he stood up that both of his legs are weak causing him to fall to the floor. Denies any fevers, CP, nausea, vomiting or diarrhea. 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 Nephrology was consulted of hypocalcemia, electrolyte imbalance, and CKD, Was found to have a calcium level of 6.6, potassium level of 2.8, creatinine of 1.74 and GFR of 37 ml/min. Patient drinks 12 oz of 94 proof GIN daily. Additional Remarks Has mild SOB on BIPAP currently (Raysa Bhakta) Review of Systems Respiratory Lungs: SOB Respiratory Remarks improved (Raysa Bhakta) Gastrointestinal GI Remarks Denies abdominal pain (Raysa Bhakta) Objective Data Data Vital Signs Date Time Temp Pulse Resp B/P (MAP) Pulse Ox O2 Delivery O2 Flow Rate FiO2 10/25/17 09:30 83 Nasal Cannula 5.00 10/25/17 08:44 Nasal Cannula 4.00 10/25/17 08:14 98.6 71 20 131/72 (91) 88 10/25/17 04:00 97.3 72 22 135/63 (87) 92 10/25/17 00:00 97.6 72 18 136/70 (92) 91 10/24/17 21:45 91 Nasal Cannula 6.00 10/24/17 20:00 97.8 71 18 133/72 (92) 91 10/24/17 20:00 Nasal Cannula 6.00 91 Humidified 10/24/17 19:30 92 Nasal Cannula 4.00 10/24/17 17:54 98.7 70 20 151/70 (97) 90 10/24/17 17:53 98.8 66 20 135/68 (90) 93 10/24/17 16:20 Nasal Cannula 4.00 10/24/17 16:16 63 (Raysa Bhakta) -: 10/21/172047 Physical Exam General Appearance: Anxious (Raysa Bhakta) Eyes Eye Exam: Pupils Equal (Raysa Bhakta) Pulmonary Resp Exam: Rhonchi, Sputum, Decreased Bases (Raysa Bhakta) Cardiology CV Exam: Regular (Raysa Bhakta) Gastrointestinal/Abdomen GI Exam: Soft, Non-Tender, Bowel Sounds Present (Raysa Bhakta) Genitourinary Exam: Flank Non-Tender (Raysa Bhakta) Integumentary Skin Exam: Clear, Warm Skin Remarks bruising present (Raysa Bhakta) Extremeties Extremities Exam: Moderate Edema (Raysa Bhakta) Neurologic Neuro Exam: Alert, Awake (Raysa Bhakta) Raysa Bhakta Oct 25, 2017 12:03 Roberto Benitez MD Oct 25, 2017 19:34
--- NOTE | 2017-10-25 12:16 | HHI.PR ---
Subjective Remarks Patient required increase O2 ABG showed PAO2: 51 and CXR this morning persistent bibasilar airspace disease. Objective Vital Signs Vital Signs Date Time Temp Pulse Resp B/P (MAP) Pulse Ox O2 Delivery O2 Flow Rate FiO2 10/25/17 09:30 83 Nasal Cannula 5.00 10/25/17 08:44 Nasal Cannula 4.00 10/25/17 08:14 98.6 71 20 131/72 (91) 88 10/25/17 04:00 97.3 72 22 135/63 (87) 92 10/25/17 00:00 97.6 72 18 136/70 (92) 91 10/24/17 21:45 91 Nasal Cannula 6.00 10/24/17 20:00 97.8 71 18 133/72 (92) 91 10/24/17 20:00 Nasal Cannula 6.00 91 Humidified 10/24/17 19:30 92 Nasal Cannula 4.00 10/24/17 17:54 98.7 70 20 151/70 (97) 90 10/24/17 17:53 98.8 66 20 135/68 (90) 93 10/24/17 16:20 Nasal Cannula 4.00 10/24/17 16:16 63 I/O 10/24/17 10/24/17 10/24/17 10/25/17 10/25/17 10/25/17 07:00 15:00 23:00 07:00 15:00 23:00 Intake Total 1080 ml 480 ml Output Total 1050 ml 950 ml 900 ml Balance -1050 ml 130 ml -420 ml Intake Oral 1080 ml 480 ml Output Urine Total 1050 ml 950 ml 900 ml # Voids 2 # Bowel Movements 1 Result Diagram: 10/21/172047 Other Results Last Impressions Chest X-Ray 10/25/17 0000 Signed Impressions: Service Date/Time: Wednesday, October 25, 2017 10:20 - CONCLUSION: Persistent bibasilar airspace disease without significant improvement. Gavino Trotter MD Chest CT 10/13/17 1313 Signed Impressions: Service Date/Time: Friday, October 13, 2017 15:15 - CONCLUSION: 1. Left upper lobe and left lower lobe consolidation likely infiltrate. Recommend treatment and followup to resolution. 2. Mild emphysema without mass or concerning nodule. 3. Minimal coronary artery calcifications. Allen Alexander MD Renal Ultrasound 10/13/17 0000 Signed Impressions: Service Date/Time: Friday, October 13, 2017 12:59 - CONCLUSION: 1. Kidneys are mildly echogenic which can be seen with early medical renal disease. 2. Possible nonobstructing calculi in the right kidney. 3. Left sided renal cysts. Allen Alexander MD Lower Extremity Ultrasound 10/13/17 0000 Signed Impressions: Service Date/Time: Friday, October 13, 2017 04:08 - CONCLUSION: 1. No sonographic evidence for right lower extremity DVT. Pedro Bunn MD Ankle X-Ray 10/13/17 0000 Signed Impressions: Service Date/Time: Friday, October 13, 2017 03:58 - CONCLUSION: 1. Diffuse soft tissue swelling without radiopaque foreign bodies, acute fracture or bony erosion. Pedro Bunn MD Objective Remarks GENERAL: Patient is 72 yo looks comfortable however requiring increase O2. SKIN: Warm and dry. HEAD: Normocephalic. EYES: No scleral icterus. No injection or drainage. NECK: Supple, trachea midline. No JVD or lymphadenopathy. CARDIOVASCULAR: Regular rate and rhythm without murmurs, gallops, or rubs. RESPIRATORY: Breath sounds equal bilaterally. Few coarse BS GASTROINTESTINAL: Abdomen soft, non-tender, nondistended. MUSCULOSKELETAL: No cyanosis, or edema. Neuro: awake, alert. A/P Assessment and Plan 1)Resp Insuff 2)COPD 3)Left sided pneumonia 4)Atelectasis 5)HTN 6)BERE Plan Continue with oxygen keep sats >92% Bronchodilators ( DuoNeb, Symbicort), IS NIPPV PRN for resp distress. Check ABG on BIPAP CXR this morning showed persistent basilar airspace disease Place on solumederol 40mg Q8 Continue abx ( Ceftin), s/p bronch 10/22: cultures- no growth GI/DVT prophylaxis- per primary team Addendum: Patient is on BIPAP with high FIO2. 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 Carolyn Zepeda MD Oct 25, 2017 12:16
[2017-10-25 12:47] LABS: BASOPHIL % 0.4 % (0.0-2.0); EOSINOPHIL # 0.2 TH/MM3 (0-0.4); EOSINOPHIL % 2.2 % (0.0-4.0); HEMATOCRIT 41.6 % (39.0-51.0); HEMOGLOBIN 14.5 GM/DL (13.0-17.0); LYMPH % 15.4 % (9.0-44.0); LYMPHOCYTE # 1.5 TH/MM3 (1.0-4.8); MEAN CELL VOLUME 100.6 FL (80.0-100.0); MEAN CORPUSCULAR HGB CONC 34.8 % (32.0-36.0); MEAN PLATELET VOLUME 9.1 FL (7.0-11.0); MONO % 10.5 % (0.0-8.0); NEUT % 71.5 % (16.0-70.0); PLATELET COUNT 139 TH/MM3 (150-450); RED BLOOD COUNT 4.14 MIL/MM3 (4.50-5.90); RED CELL DISTRIBUTION WIDTH 13.1 % (11.6-17.2); WHITE BLOOD COUNT 9.8 TH/MM3 (4.0-11.0)
[2017-10-25 13:01] LABS: ALBUMIN 2.3 GM/DL (3.4-5.0); AST (GOT) 19 U/L (15-37); BICARBONATE 31.9 MEQ/L (21.0-32.0); BLOOD UREA NITROGEN 35 MG/DL (7-18); CALCIUM 9.1 MG/DL (8.5-10.1); CHLORIDE 101 MEQ/L (98-107); CREATININE 1.81 MG/DL (0.60-1.30); GLOMERULAR FILTRATION RATE 37 ML/MIN (>89); GLUCOSE,RANDOM 97 MG/DL (74-106); SODIUM (NA) 138 MEQ/L (136-145)
[2017-10-25 13:05] LABS: ALKALINE PHOSPHATASE 61 U/L (45-117); ALT (GPT) 51 U/L (12-78); TOTAL BILIRUBIN ADULT 0.5 MG/DL (0.2-1.0); TOTAL PROTEIN 5.6 GM/DL (6.4-8.2)
[2017-10-25] MEDS: methylPREDNISolone SOD SUCC 40 MG/1 ML VIAL IV PUSH SCH ×3 (13:09→22:20)
[2017-10-25] MEDS ORDERED: ETOMIDATE 40 MG/20 ML VIAL ONE (14:47)
[2017-10-25] MEDS ORDERED: ROCURONIUM INJ 50 MG/5 ML VIAL IV ONE (14:47)
--- NOTE | 2017-10-25 15:24 | HHI.CCPN ---
Subjective Remarks/Hospital Course The patient is a 72 year old male with past medical history of hypertension, COPD, Active tobacco use, renal CA. Who presented to [facility] ED , status post fall. He denies any chest pain, however, he reports some shortness of breath with wheezing, the patient denies any cough or any constitutional symptoms. He also reports swelling in his right lower extremity for the past two months. The patient denies any use of oxygen at home however, he uses Combivent and Breo. When paramedics arrived the patient was short of breath and he required three up draft treatments for expiratory wheezing, in addition, he received a dose of Eyxt-Ynvunv-Ttclez Medrol. The patient denies any nausea, vomiting or any abdominal pain. His initial laboratory data showed acute kidney injury with a creatinine level of 1.82 and lactic acid level of 4.4. Chest x-ray in the ED showed persistent left lung airspace disease, likely atelectasis and scarring , otherwise no acute abnormality or any significant interval change. Ultrasound of the right lower extremity was preformed which showed no evidence of any DVT. The patient is being admitted to Dr. Barrett 's service. Subjective 10/25: Reconsult secondary to worsening hypoxia on BiPAP. Status post bronchoscopy 10/22 currently only growing rare budding yeast. Will require intubation will contact son Eyal prior Objective Vital Signs Date Time Temp Pulse Resp B/P (MAP) Pulse Ox O2 Delivery O2 Flow Rate FiO2 10/25/17 13:13 98.0 78 28 122/63 (82) 89 10/25/17 11:30 90 10/25/17 09:30 Nasal Cannula 5.00 Intake and Output 10/25/17 10/25/17 10/26/17 08:00 16:00 00:00 Intake Total 480 ml Output Total 900 ml Balance -420 ml Result Diagram: 10/25/17 1153 10/25/17 1153 Other Results Microbiology Date/Time Source Procedure Growth Status 10/13/17 05:10 Blood Peripheral Aerobic Blood Culture - Final NO GROWTH IN 5 DAYS Complete 10/13/17 05:10 Blood Peripheral Anaerobic Blood Culture - Final NO GROWTH IN 5 DAYS Complete 10/22/17 11:35 Bronchial Washings Bronchial Fungal Smear - Final RARE BUDDING YEAST CELLS Resulted 10/22/17 11:35 Bronchial Washings Bronchial Fungal Culture Pending Resulted Imaging Last 24 hours Impressions Chest X-Ray 3/11/18 0000 Signed Impressions: Service Date/Time: Wednesday, October 25, 2017 10:20 - CONCLUSION: Persistent bibasilar airspace disease without significant improvement. Gavino Trotter MD Procedures Last Impressions Chest X-Ray 10/25/17 0000 Signed Impressions: Service Date/Time: Wednesday, October 25, 2017 10:20 - CONCLUSION: Persistent bibasilar airspace disease without significant improvement. Gavino Trotter MD Chest CT 10/13/17 1313 Signed Impressions: Service Date/Time: Friday, October 13, 2017 15:15 - CONCLUSION: 1. Left upper lobe and left lower lobe consolidation likely infiltrate. Recommend treatment and followup to resolution. 2. Mild emphysema without mass or concerning nodule. 3. Minimal coronary artery calcifications. Allen Alexander MD Renal Ultrasound 10/13/17 0000 Signed Impressions: Service Date/Time: Friday, October 13, 2017 12:59 - CONCLUSION: 1. Kidneys are mildly echogenic which can be seen with early medical renal disease. 2. Possible nonobstructing calculi in the right kidney. 3. Left sided renal cysts. Allen Alexander MD Lower Extremity Ultrasound 10/13/17 0000 Signed Impressions: Service Date/Time: Friday, October 13, 2017 04:08 - CONCLUSION: 1. No sonographic evidence for right lower extremity DVT. Pedro Bunn MD Ankle X-Ray 10/13/17 0000 Signed Impressions: Service Date/Time: Friday, October 13, 2017 03:58 - CONCLUSION: 1. Diffuse soft tissue swelling without radiopaque foreign bodies, acute fracture or bony erosion. Pedro Bunn MD Objective Remarks GENERAL: This is a 72-year-old male currently on BiPAP SKIN: Warm and dry. HEAD: Atraumatic. Normocephalic. EYES: Pupils equal and round. No scleral icterus. No injection or drainage. ENT: No nasal bleeding or discharge. Mucous membranes pink and moist. NECK: Trachea midline. No JVD. CARDIOVASCULAR: Regular rate and rhythm. RESPIRATORY: No accessory muscle use. Clear to auscultation. Breath sounds equal bilaterally. GASTROINTESTINAL: Abdomen soft, non-tender, nondistended. Hepatic and splenic margins not palpable. MUSCULOSKELETAL: Extremities without clubbing, cyanosis, or edema. No obvious deformities. NEUROLOGICAL: Awake and alert. No obvious cranial nerve deficits. Motor grossly within normal limits. Five out of 5 muscle strength in the arms and legs. Normal speech. PSYCHIATRIC: Appropriate mood and affect; insight and judgment normal. Urinary Catheter: No Assessment to: Continue Vascular Central Line Catheter: No Assessment to: Continue A/P Assessment and Plan Neuro/Psych: EtOH -12 ounces of gin daily Peripheral neuropathy Depression Currently on propofol/fentanyl drips for sedation/analgesia while intubated Goal of RASS -2 Daily sedation vacation Discontinue CIWA protocol while intubated Thiamine, multivitamin and folic acid daily Continue trazodone 100 mg at night/home medication CV: Hypertension Dyslipidemia Currently on metoprolol 25 mg twice daily, amlodipine 10 mg daily, Catapres 0.1 mg every 8 hours and lisinopril 5 mg daily. Also on doxazosin 8 mg p.o. daily Hold lisinopril with acute kidney injury Discontinue amlodipine Noted home medication metoprolol 12.5 mg twice daily at home. Currently normal saline at 83 cc an hour Resp: Acute hypoxemic respiratory failure COPD with ongoing tobaccoism Hypertension Hyperlipidemia PRVC 16/500/1/5/100 Ventilator bundle Albuterol/ipratropium aerosols every 4 hours with albuterol aerosols every 2 hours as needed dyspnea Add budesonide 0.5/2 1 inhalation twice daily GI: Gastroesophageal reflux disease Hypoalbuminemia Nasogastric tube to low intermittent wall suction Lansoprazole for GI prophylaxis Docusate sodium/senna 1 tablet twice daily for bowel regimen : BPH History of bladder outlet obstruction Place Muñoz catheter Holding tamsulosin 0.4 mg daily and finasteride 5 mg daily as unable to pass down tube Endo: Sliding scale insulin with Accu-Cheks to maintain euglycemia/every 6 hours Novulin R medium protocol Renal: Acute renal insufficiency History of right renal carcinoma status post right partial nephrectomy/ nephrostomy tube placement as well Partial obstructing right renal calculus Left renal cyst Creatinine baseline within normal limits Check renal ultrasound, urine electrolytes and eosinophils Renal ultrasound 10/13 with left renal cyst, partially obstructing right renal calculus Avoid nephrotoxic drugs Heme: Macrocytosis Thrombocytopenia Monitor CBC daily. Follow trends ID: Discontinue Ceftin Placed on cefepime 2 g every 12 hours and metronidazole 5 mg every 6 hours Pertinent cultures 10/22 -bronc -rare budding yeast 10/13 -blood cultures 2 -no growth to date MSK: PT evaluate and treat FEN: Replace electrolytes as clinically indicated Access -Utilize peripheral IV. Central if indicated Prophylaxis -GI pantoprazole -DVT -SCD/heparin subcu Level 2 follow-up Grant Orellana MD Oct 25, 2017 15:24
[2017-10-25] MEDS ORDERED: RESP: ALBUTEROL CONC 2.5 MG/0.5 ML NEB NEB PRN (16:00)
--- NOTE | 2017-10-25 16:13 | PD.PROCEDR ---
Procedure Note Procedure DATE: 10/25/2017 PROCEDURE: Orotracheal intubation INDICATION: Acute hypoxemic respiratory failure DETAILS OF PROCEDURE The patient was unable to be placed in optimal position secondary to neck immobility. He was preoxygenated with 100% FiO2 via bag valve mask. At the start oxygen saturation was 90%. The patient was administered 20 milligrams etomidate IV and 50 milligrams rocuronium IV. I entered the oropharynx with a size 4 GVL glidescope blade and obtained a grade 2 view of the airway. On single attempt a size 8.0 cuffed endotracheal tube was passed through the vocal cords. Correct tube location was confirmed with end tidal CO2 detector and by auscultating over bilateral lung carrizales. The endotracheal tube was secured with adhesive tape at a depth of 24 cm at the lips. The patient was connected to the ventilator. The patient tolerated the procedure well without any apparent complications. Oxygen saturations were maintained greater than 95% all times. STAT chest x-ray pending at time of dictation. Grant Orellana MD Oct 25, 2017 16:13
[2017-10-25] MEDS: RESP: ALBUTEROL 2.5 MG/IPRATROPIUM 0.5 MG NEB (SCH) NEB ×2 (16:19→19:19)
[2017-10-25] MEDS: PROPOFOL 1000 MG/100 ML INJ 100 ML IV PRN ×2 (16:42→22:21)
[2017-10-25] MEDS: CEFEPIME INJ 1,000 MG in SODIUM CHLORIDE 0.9% INJ 100 ML IV SCH ×2 (16:45→23:49)
[2017-10-25] MEDS ORDERED: DEXTROSE 50% IN WATER 50 ML VIAL(D50) IV PUSH PRN (17:00)
[2017-10-25] MEDS ORDERED: GLUCAGON 1 MG/ML VIAL OTHER PRN (17:00)
--- NOTE | 2017-10-25 17:15 | RADRPT ---
EXAM DATE/TIME: 10/25/2017 16:26 [facility] COMPARISON: No previous studies available for comparison. INDICATIONS : Increased BUN/Creatnine. MEDICAL HISTORY : Hypertension. COPD. Dyspnea. Hiatal hernia. Renal diease. Right kidney cancer. Kidney stones. SURGICAL HISTORY : Tonsillectomy. Inguinal hernia repair. Right partial nephrectomy. Right leg surgery with rods. ENCOUNTER: Subsequent ACUITY: 2 weeks PAIN SCORE: Nonresponsive. LOCATION: Bilateral flank MEASUREMENTS: RIGHT KIDNEY: 9.8 x 4.5 x 4.6 cm LEFT KIDNEY: 10.3 x 4.0 x 5.1 cm FINDINGS: Mildly echogenic kidneys most characteristic of early medical renal disease. Small renal cysts. No bl adder abnormality. Prostate enlarged. CONCLUSION: 1. Echogenic kidneys characteristic of medical renal disease. No hydronephrosis. Small renal cysts. P rostatic enlargement. Ole Eckert MD on October 25, 2017 at 17:12 Board Certified Radiologist. This report was verified electronically.
--- NOTE | 2017-10-25 17:18 | RADRPT ---
EXAM DATE/TIME: 10/25/2017 16:44 [facility] COMPARISON: CHEST SINGLE AP, October 25, 2017, 10:20. INDICATIONS : Acute hypoxemic respiratory failure. MEDICAL HISTORY : Renal calculi. Chronic obstructive pulmonary disease. Renal cell carcinoma. SURGICAL HISTORY : Nephrectomy, left. ENCOUNTER: Subsequent ACUITY: 1 week PAIN SCORE: 0/10 LOCATION: Bilateral chest FINDINGS: Endotracheal tube in good position. NG tip in stomach. Basilar airspace disease and effusions similar to earlier exam. No pneumothorax. CONCLUSION: 1. Intubation with NG tube and endotracheal tube in good position. Basilar airspace disease and effus ions persist. Ole Eckert MD on October 25, 2017 at 17:15 Board Certified Radiologist. This report was verified electronically.
[2017-10-25] MEDS: fentaNYL DRIP 250 ML IV PRN (17:37)
[2017-10-25] MEDS: INSULIN NovoLIN REGULAR SUPPLEMENTAL SCALE SQ SCH ×2 (18:00→23:51)
[2017-10-25] MEDS ORDERED: ROCURONIUM INJ 50 MG/5 ML VIAL IV PRN (18:15)
[2017-10-25] MEDS: metroNIDAZOLE 500 MG TAB PO SCH ×2 (18:26→23:49)
[2017-10-25] MEDS: FLUCONAZOLE 100 MG PREMIX BAG 50 ML IV SCH (18:26)
[2017-10-25] MEDS: RESP: BUDESONIDE 0.5 MG/2 ML NEB NEB SCH (19:19)
[2017-10-25] MEDS: CHLORHEXIDINE 0.12% (ORAL KIT) 15 ML CUP MT SCH (20:10)
[2017-10-25] MEDS: traZODone HCL 100 MG TAB PO SCH (20:11)
[2017-10-25] MEDS: TAMSULOSIN HCL 0.4 MG CAP PO SCH (20:12)
[2017-10-25] MEDS ORDERED: CHLORHEXIDINE GLUCONATE 2 % 1 PACK (2 CLOTHS)(extra cloths) TOPICAL PRN (22:00)
[2017-10-25] MEDS: ARTIFICIAL TEARS OPTH SOLN 15 ML BTL EACH EYE SCH (22:20)
[2017-10-26] VITALS (19 sets, daily range): BP systolic 129–166; BP diastolic 62–79; PULSE 52–80; RESP 16; TEMP 97.4–98.1; O2SAT 95–100
[2017-10-26] MEDS: RESP: ALBUTEROL 2.5 MG/IPRATROPIUM 0.5 MG NEB (SCH) NEB ×7 (00:38→23:28)
[2017-10-26] MEDS: CHLORHEXIDINE GLUCONATE 2 % 1 PACK (2 CLOTHS)(taper/protocol) TOPICAL SCH (03:53)
[2017-10-26] MEDS: PROPOFOL 1000 MG/100 ML INJ 100 ML IV PRN ×3 (05:06→20:09)
[2017-10-26] MEDS: cloNIDine HCL 0.1 MG TAB PO SCH ×3 (05:28→23:35)
[2017-10-26] MEDS: INSULIN NovoLIN REGULAR SUPPLEMENTAL SCALE SQ SCH ×4 (05:28→23:35)
[2017-10-26] MEDS: methylPREDNISolone SOD SUCC 40 MG/1 ML VIAL IV PUSH SCH ×3 (05:28→21:13)
[2017-10-26] MEDS: ARTIFICIAL TEARS OPTH SOLN 15 ML BTL EACH EYE SCH ×3 (05:28→22:00)
[2017-10-26] MEDS: metroNIDAZOLE 500 MG TAB PO SCH ×4 (05:28→23:35)
[2017-10-26] MEDS: RESP: BUDESONIDE 0.5 MG/2 ML NEB NEB SCH ×2 (07:29→20:01)
[2017-10-26] MEDS: FOLIC ACID 1 MG TAB PO SCH (08:34)
[2017-10-26] MEDS: THIAMINE HCL 100 MG TAB PO SCH (08:34)
[2017-10-26] MEDS: REMOVE OLD PATCH T-DERMAL SCH (08:34)
[2017-10-26] MEDS: METOPROLOL TARTRATE 25 MG TAB PO SCH ×2 (08:34→21:13)
[2017-10-26] MEDS: DOXAZOSIN MESYLATE 4 MG TAB PO SCH (08:34)
[2017-10-26] MEDS: CHLORHEXIDINE 0.12% (ORAL KIT) 15 ML CUP MT SCH ×2 (08:34→21:14)
[2017-10-26] MEDS: CALCIUM CARBONATE 1.25 GM (CA 500 MG) TAB PO SCH ×2 (08:34→21:13)
[2017-10-26] MEDS: MULTIVITAMIN TAB PO SCH (08:34)
[2017-10-26] MEDS: LANSOPRAZOLE SOLUTAB 30 MG TAB NG SCH (08:34)
[2017-10-26] MEDS: DOCUSATE SODIUM 50 MG/SENNA 8.6 MG TAB PO SCH ×2 (08:34→21:13)
[2017-10-26] MEDS: NICOTINE 21 MG/24 HR PATCH T-DERMAL SCH (08:35)
[2017-10-26] MEDS: FINASTERIDE 5 MG TAB PO SCH (08:35)
[2017-10-26] MEDS: CEFEPIME INJ 1,000 MG in SODIUM CHLORIDE 0.9% INJ 100 ML IV SCH ×3 (08:36→23:35)
[2017-10-26] MEDS: SODIUM CHLOR 0.9% 1000 ML INJ 1,000 ML IV SCH ×2 (08:36→20:57)
[2017-10-26] MEDS: SODIUM CHLORIDE 0.9% FLUSH 10 ML FLUSH IV FLUSH SCH ×2 (08:38→21:13)
[2017-10-26] MEDS: FLUTICASONE 200 MCG/VILANTEROL 25 MCG INHALER INH SCH (08:38)
[2017-10-26] MEDS: BUDESONIDE-FORMOTEROL 160/4.5 MCG INHALER INH SCH ×2 (08:38→20:59)
--- NOTE | 2017-10-26 09:45 | HHI.NPPN ---
Subjective Complaints: Shortness of Breath General Problems: Edema, Hypertension Renal Failure: Chronic, Acute History of Present Illness Patient is a 72-year-old male presents to the emergency department by EMS transport from home s/p fall after getting out of bed and being to weak to get up. Patient states he has chronic COPD and this morning was getting up out of bed without his walker to go to the bathroom and noticed that when he stood up that both of his legs are weak causing him to fall to the floor. Denies any fevers, CP, nausea, vomiting or diarrhea. 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 Nephrology was consulted of hypocalcemia, electrolyte imbalance, and CKD, Was found to have a calcium level of 6.6, potassium level of 2.8, creatinine of 1.74 and GFR of 37 ml/min. Patient drinks 12 oz of 94 proof GIN daily. Additional Remarks Patient transferred to ICU last night for respiratory distress and is now intubated (Raysa Bhakta) Review of Systems General General Remarks Sedated and intubated (Raysa Bhakta) Objective Data Data Vital Signs Date Time Temp Pulse Resp B/P (MAP) Pulse Ox O2 Delivery O2 Flow Rate FiO2 10/26/17 08:00 71 10/26/17 08:00 98.1 71 16 129/62 (84) 95 10/26/17 08:00 40 10/26/17 07:31 99 50 10/26/17 06:00 72 10/26/17 04:26 98 60 10/26/17 04:00 76 10/26/17 04:00 60 10/26/17 04:00 98.0 76 16 152/73 (99) 96 10/26/17 02:00 80 10/26/17 02:00 70 10/26/17 01:51 99 80 10/26/17 00:00 80 10/26/17 00:00 97.9 76 16 164/79 (107) 100 10/26/17 00:00 76 10/25/17 22:00 80 10/25/17 20:00 80 10/25/17 20:00 97.6 82 16 164/82 (109) 98 10/25/17 20:00 82 10/25/17 19:16 98 80 10/25/17 18:00 77 10/25/17 17:05 98 80 10/25/17 16:11 95 100 10/25/17 16:10 80 10/25/17 16:00 76 10/25/17 16:00 97.7 76 22 144/67 (92) 89 10/25/17 13:13 98.0 78 28 122/63 (82) 89 10/25/17 11:30 88 90 (Raysa Bhakta) -: 10/25/17 1153 10/25/17 1153 Microbiology 10/25/17 Aerobic Blood Culture, Received Pending 10/25/17 Anaerobic Blood Culture, Received Pending 10/25/17 Aerobic Blood Culture, Received Pending 10/25/17 Anaerobic Blood Culture, Received Pending Imaging Last Impressions Renal Ultrasound 10/25/17 0000 Signed Impressions: Service Date/Time: Wednesday, October 25, 2017 16:26 - CONCLUSION: 1. Echogenic kidneys characteristic of medical renal disease. No hydronephrosis. Small renal cysts. Prostatic enlargement. Ole Eckert MD Chest X-Ray 10/25/17 0000 Signed Impressions: Service Date/Time: Wednesday, October 25, 2017 16:44 - CONCLUSION: 1. Intubation with NG tube and endotracheal tube in good position. Basilar airspace disease and effusions persist. Ole Eckert MD Chest CT 10/13/17 1313 Signed Impressions: Service Date/Time: Friday, October 13, 2017 15:15 - CONCLUSION: 1. Left upper lobe and left lower lobe consolidation likely infiltrate. Recommend treatment and followup to resolution. 2. Mild emphysema without mass or concerning nodule. 3. Minimal coronary artery calcifications. Allen Alexander MD Lower Extremity Ultrasound 10/13/17 0000 Signed Impressions: Service Date/Time: Friday, October 13, 2017 04:08 - CONCLUSION: 1. No sonographic evidence for right lower extremity DVT. Pedro Bunn MD Ankle X-Ray 10/13/17 0000 Signed Impressions: Service Date/Time: Friday, October 13, 2017 03:58 - CONCLUSION: 1. Diffuse soft tissue swelling without radiopaque foreign bodies, acute fracture or bony erosion. Pedro Bunn MD (Raysa Bhakta) Physical Exam General Appearance: No Acute Distress Appearance Remarks Intubated (Raysa Bhakta) Eyes Eye Exam: Pupils Equal (Raysa Bhakta) Pulmonary Resp Exam: Breath Sounds Equal, No Distress, Decreased Bases (Raysa Bhakta) Cardiology CV Exam: Regular (Raysa Bhakta) Gastrointestinal/Abdomen GI Exam: Soft, Non-Tender, Bowel Sounds Present (Raysa Bhakta) Genitourinary Exam: Flank Non-Tender (Raysa Bhakta) Integumentary Skin Exam: Clear, Warm Skin Remarks bruising present (Raysa Bhakta) Extremeties Extremities Exam: Trace Edema (Raysa Bhakta) Neurologic Neuro Exam: Sedated (Raysa Bhakta) Assessment/Plan Problem List: (1) Chronic renal disease ICD Codes: N18.9 - Chronic kidney disease Status: Chronic Plan: Patient with history of right partial nephrectomy for tumor. Most likely has CKD from HTN or renal vascular disease Patient has BERE, possibly pre renal or ATN. Proteinuria noted Plan Creatinine is slightly increased at 1.81 Indwelling parrish catheter remains non oliguric Follow the urine out put and BMP (2) Disorder of electrolytes ICD Codes: E87.8 - Other disorders of electrolyte and fluid balance, not elsewhere classified Status: Acute Plan: Calcium found to be at 6.6 and Potassium of 2.8 on admission Patient has received replacement and now WNL (3) COPD exacerbation ICD Codes: J44.1 - COPD exacerbation Status: Acute Plan: Continue O2 Mild SOB (4) Lactic acidosis ICD Codes: E87.2 - Acidosis Status: Acute Plan: Resolved (5) Hypertension ICD Codes: I10 - Essential (primary) hypertension Status: Chronic Plan: Well controlled (6) Weakness ICD Codes: R53.1 - Weakness Status: Acute Plan: Patient is very deconditioned and plan is for rehab (Raysa Bhakta) Problem List: (1) Chronic renal disease ICD Codes: N18.9 - Chronic kidney disease Status: Chronic Plan: Patient with history of right partial nephrectomy for tumor. Most likely has CKD from HTN or renal vascular disease Patient has BERE, possibly pre renal or ATN. Proteinuria noted Plan Creatinine is slightly increased at 1.81 Indwelling Parrish catheter remains non oliguric Follow the urine out put and BMP. Patient seen and examined, agree with above. Continue gentle hydration. (2) Disorder of electrolytes ICD Codes: E87.8 - Other disorders of electrolyte and fluid balance, not elsewhere classified Status: Acute Plan: Calcium found to be at 6.6 and Potassium of 2.8 on admission Patient has received replacement and now WNL (3) COPD exacerbation ICD Codes: J44.1 - COPD exacerbation Status: Acute Plan: Continue O2 Mild SOB (4) Lactic acidosis ICD Codes: E87.2 - Acidosis Status: Acute Plan: Resolved (5) Hypertension ICD Codes: I10 - Essential (primary) hypertension Status: Chronic Plan: Well controlled (6) Weakness ICD Codes: R53.1 - Weakness Status: Acute Plan: Patient is very deconditioned and plan is for rehab (Roberto Benitez MD) Problem Qualifiers (1) Chronic renal disease: Qualified Codes: N18.3 - Chronic kidney disease, stage 3 (moderate) (2) Hypertension: Qualified Codes: I10 - Essential (primary) hypertension Raysa Bhakta Oct 26, 2017 09:45 Roberto Benitez MD Oct 26, 2017 18:40
--- NOTE | 2017-10-26 10:54 | RSPPFT ---
DATE OF PROCEDURE: 10/14/17 COMMENTS: Spirometry demonstrates an FEV1 of 1.1 at 37% of predicted, FVC of 1.9 at 50%, FEV1/FVC ratio at 57%. FEF 25-75 is 16% of predicted. Post-bronchodilator study demonstrated significant improvements indicating some reversibility. Lung volumes were not completed. Flow volume loop suggests an obstructive pattern. IMPRESSION: 1. Moderately severe obstructive disease. 2. Significant response to use of bronchodilator indicating reversibility.
--- NOTE | 2017-10-26 12:24 | HHI.CCPN ---
Subjective Remarks/Hospital Course The patient is a 72 year old male with past medical history of hypertension, COPD, Active tobacco use, renal CA. Who presented to [facility] ED , status post fall. He denies any chest pain, however, he reports some shortness of breath with wheezing, the patient denies any cough or any constitutional symptoms. He also reports swelling in his right lower extremity for the past two months. The patient denies any use of oxygen at home however, he uses Combivent and Breo. When paramedics arrived the patient was short of breath and he required three up draft treatments for expiratory wheezing, in addition, he received a dose of [id number] Medrol. The patient denies any nausea, vomiting or any abdominal pain. His initial laboratory data showed acute kidney injury with a creatinine level of 1.82 and lactic acid level of 4.4. Chest x-ray in the ED showed persistent left lung airspace disease, likely atelectasis and scarring , otherwise no acute abnormality or any significant interval change. Ultrasound of the right lower extremity was preformed which showed no evidence of any DVT. The patient is being admitted to Dr. Barrett 's service. 10/25: Reconsult secondary to worsening hypoxia on BiPAP. Status post bronchoscopy 10/22 currently only growing rare budding yeast. Will require intubation will contact son Eyal prior Subjective 10/26: Appears comfortable on ventilator. Hemodynamically stable. Requiring propofol and fentanyl drips for sedation. Objective Vital Signs Date Time Temp Pulse Resp B/P (MAP) Pulse Ox O2 Delivery O2 Flow Rate FiO2 10/26/17 10:50 97 40 10/26/17 10:00 61 10/26/17 08:00 98.1 16 129/62 (84) 10/25/17 09:30 Nasal Cannula 5.00 Intake and Output 10/26/17 10/26/17 10/27/17 08:00 16:00 00:00 Intake Total 986.4 ml Output Total 1200 ml Balance -213.6 ml Result Diagram: 10/25/17 1153 10/25/17 1153 Other Results Microbiology Date/Time Source Procedure Growth Status 10/25/17 18:50 Blood Peripheral Aerobic Blood Culture - Preliminary NO GROWTH IN 1 DAY Resulted 10/25/17 18:50 Blood Peripheral Anaerobic Blood Culture - Preliminary NO GROWTH IN 1 DAY Resulted 10/22/17 11:35 Bronchial Washings Bronchial Fungal Smear - Final RARE BUDDING YEAST CELLS Resulted 10/22/17 11:35 Fungal Culture - Preliminary Yeast Species Resulted Imaging Last Impressions Renal Ultrasound 10/25/17 0000 Signed Impressions: Service Date/Time: Wednesday, October 25, 2017 16:26 - CONCLUSION: 1. Echogenic kidneys characteristic of medical renal disease. No hydronephrosis. Small renal cysts. Prostatic enlargement. Ole Eckert MD Chest X-Ray 10/25/17 0000 Signed Impressions: Service Date/Time: Wednesday, October 25, 2017 16:44 - CONCLUSION: 1. Intubation with NG tube and endotracheal tube in good position. Basilar airspace disease and effusions persist. Ole Eckert MD Chest CT 10/13/17 1313 Signed Impressions: Service Date/Time: Friday, October 13, 2017 15:15 - CONCLUSION: 1. Left upper lobe and left lower lobe consolidation likely infiltrate. Recommend treatment and followup to resolution. 2. Mild emphysema without mass or concerning nodule. 3. Minimal coronary artery calcifications. Allen Alexander MD Lower Extremity Ultrasound 10/13/17 0000 Signed Impressions: Service Date/Time: Friday, October 13, 2017 04:08 - CONCLUSION: 1. No sonographic evidence for right lower extremity DVT. Pedro Bunn MD Ankle X-Ray 10/13/17 0000 Signed Impressions: Service Date/Time: Friday, October 13, 2017 03:58 - CONCLUSION: 1. Diffuse soft tissue swelling without radiopaque foreign bodies, acute fracture or bony erosion. Pedro Bunn MD Objective Remarks GENERAL: This is a 72-year-old male currently on BiPAP SKIN: Warm and dry. HEAD: Atraumatic. Normocephalic. EYES: Pupils equal and round. No scleral icterus. No injection or drainage. ENT: No nasal bleeding or discharge. Mucous membranes pink and moist. NECK: Trachea midline. No JVD. CARDIOVASCULAR: Regular rate and rhythm. RESPIRATORY: No accessory muscle use. Clear to auscultation. Breath sounds equal bilaterally. GASTROINTESTINAL: Abdomen soft, non-tender, nondistended. Hepatic and splenic margins not palpable. MUSCULOSKELETAL: Extremities without clubbing, cyanosis, or edema. No obvious deformities. NEUROLOGICAL: Awake and alert. No obvious cranial nerve deficits. Motor grossly within normal limits. Five out of 5 muscle strength in the arms and legs. Normal speech. PSYCHIATRIC: Appropriate mood and affect; insight and judgment normal. Urinary Catheter: Yes Assessment to: Continue Muñoz insert reason: Prolonged Immobilization Vascular Central Line Catheter: No Assessment to: Continue A/P Assessment and Plan Neuro/Psych: EtOH -12 ounces of gin daily Peripheral neuropathy Depression Currently on propofol at 50 mcg/kg/min/fentanyl drips at 100 mg an hour for sedation/analgesia while intubated Goal of RASS -2 Daily sedation vacation Discontinue CIWA protocol while intubated Thiamine, multivitamin and folic acid daily Continue trazodone 100 mg at night/home medication CV: Hypertension Dyslipidemia Previously on metoprolol 25 mg twice daily, amlodipine 10 mg daily, Catapres 0.1 mg every 8 hours and lisinopril 5 mg daily. Also on doxazosin 8 mg p.o. daily Hold lisinopril with acute kidney injury Discontinue amlodipine Noted home medication metoprolol 12.5 mg twice daily at home. Currently normal saline at 83 cc an hour Resp: Acute hypoxemic respiratory failure COPD with ongoing tobaccoism Hypertension Hyperlipidemia [facility] [address]/40 Ventilator bundle Albuterol/ipratropium aerosols every 4 hours with albuterol aerosols every 2 hours as needed dyspnea Continue budesonide 0.5/2 1 inhalation twice daily On fluticasone/Vilanterol 200/25 daily at home Follow-up chest x-ray in a.m. 10/27 GI: Gastroesophageal reflux disease Hypoalbuminemia Nasogastric tube to low intermittent wall suction Start tube feedings with Nepro goal 40 cc an hour per nutrition's recommendations Lansoprazole for GI prophylaxis Docusate sodium/senna 1 tablet twice daily for bowel regimen : BPH History of bladder outlet obstruction Place Muñoz catheter Holding tamsulosin 0.4 mg daily and finasteride 5 mg daily as unable to pass down tube Endo: Sliding scale insulin with Accu-Cheks to maintain euglycemia/every 6 hours Novolin R medium protocol Renal: Acute renal insufficiency History of right renal carcinoma status post right partial nephrectomy/ nephrostomy tube placement as well Partial obstructing right renal calculus Left renal cyst Creatinine baseline within normal limits Essentially no new finding renal ultrasound repeated 10/25. Medical renal disease, left cyst. Urine electrolytes and eosinophils Renal ultrasound 10/13 with left renal cyst, partially obstructing right renal calculus Avoid nephrotoxic drugs Heme: Macrocytosis Thrombocytopenia Monitor CBC daily. Follow trends ID: Discontinue Ceftin Placed on cefepime 2 g every 12 hours and metronidazole 500 mg every 6 hours Fluconazole 100 mg daily Pertinent cultures 10/25 -blood cultures 2 -pending 10/22 -bronc -rare budding yeast 10/13 -blood cultures 2 -no growth to date MSK: PT evaluate and treat FEN: Replace electrolytes as clinically indicated Access -Utilize peripheral IV. Central line if indicated Prophylaxis -GI lansoprazole -DVT -SCD/heparin subcu Level 3 follow-up Grant Orellana MD Oct 26, 2017 12:24
[2017-10-26] MEDS ORDERED: ACETAMINOPHEN 650 MG/20.3 ML UDC PO PRN (12:45)
--- NOTE | 2017-10-26 13:36 | HHI.PR ---
Subjective Remarks Transferred to ICU over night, on mechanical Ventilation. Objective Vital Signs Date Time Temp Pulse Resp B/P (MAP) Pulse Ox O2 Delivery O2 Flow Rate FiO2 10/26/17 10:50 97 40 10/26/17 10:00 61 10/26/17 08:00 71 10/26/17 08:00 98.1 71 16 129/62 (84) 95 10/26/17 08:00 40 10/26/17 07:31 99 50 10/26/17 06:00 72 10/26/17 04:26 98 60 10/26/17 04:00 76 10/26/17 04:00 60 10/26/17 04:00 98.0 76 16 152/73 (99) 96 10/26/17 02:00 80 10/26/17 02:00 70 10/26/17 01:51 99 80 10/26/17 00:00 80 10/26/17 00:00 97.9 76 16 164/79 (107) 100 10/26/17 00:00 76 10/25/17 22:00 80 10/25/17 20:00 80 10/25/17 20:00 97.6 82 16 164/82 (109) 98 10/25/17 20:00 82 10/25/17 19:16 98 80 10/25/17 18:00 77 10/25/17 17:05 98 80 10/25/17 16:11 95 100 10/25/17 16:10 80 10/25/17 16:00 76 10/25/17 16:00 97.7 76 22 144/67 (92) 89 I/O 10/25/17 10/25/17 10/25/17 10/26/17 10/26/17 10/26/17 07:00 15:00 23:00 07:00 15:00 23:00 Intake Total 480 ml 250 ml 1086.4 ml Output Total 900 ml 1200 ml Balance -420 ml 250 ml -113.6 ml Intake Oral 480 ml 0 ml IV Total 250 ml 1086.4 ml Output Urine Total 900 ml 1100 ml Gastric Drainage Total 100 ml # Voids 2 # Bowel Movements 1 0 0 Result Diagram: 10/25/17 1153 10/25/17 1153 Imaging Last 72 hours Impressions Renal Ultrasound 10/25/17 0000 Signed Impressions: Service Date/Time: Wednesday, October 25, 2017 16:26 - CONCLUSION: 1. Echogenic kidneys characteristic of medical renal disease. No hydronephrosis. Small renal cysts. Prostatic enlargement. Ole Eckert MD Chest X-Ray 10/25/17 0000 Signed Impressions: Service Date/Time: Wednesday, October 25, 2017 16:44 - CONCLUSION: 1. Intubation with NG tube and endotracheal tube in good position. Basilar airspace disease and effusions persist. Ole Eckert MD Chest X-Ray 10/25/17 0000 Signed Impressions: Service Date/Time: Wednesday, October 25, 2017 10:20 - CONCLUSION: Persistent bibasilar airspace disease without significant improvement. Gavino Trotter MD Other Results Date/Time Source Procedure Growth Status 10/25/17 18:50 Blood Peripheral Aerobic Blood Culture - Preliminary NO GROWTH IN 1 DAY Resulted 10/25/17 18:50 Blood Peripheral Anaerobic Blood Culture - Preliminary NO GROWTH IN 1 DAY Resulted 10/25/17 18:45 Blood Peripheral Aerobic Blood Culture - Preliminary NO GROWTH IN 1 DAY Resulted 10/25/17 18:45 Blood Peripheral Anaerobic Blood Culture - Preliminary NO GROWTH IN 1 DAY Resulted Objective Remarks GENERAL: This is a well-nourished, elderly male in mechanical ventilation SKIN: No rashes, ecchymotic area to B/L UE HEAD: Atraumatic. Normocephalic. No temporal or scalp tenderness. EYES: Pupils equal round and reactive. Extraocular motions intact. No scleral icterus. No injection or drainage. ENT: Nose without bleeding, purulent drainage NECK: Trachea midline. No JVD CARDIOVASCULAR: Regular rate and rhythm without murmurs, gallops, or rubs. RESPIRATORY: Equal B/l, clear GASTROINTESTINAL: Abdomen soft, non-tender, nondistended. MUSCULOSKELETAL: trace edema NEUROLOGICAL: sedated on vent Medications and IVs Current Medications Medications (Trade) Dose Ordered Sig/Nayeli Route Start Time Stop Time Status Last Admin (Cardura) 8 mg DAILY PO 10/13/17 09:00 10/26/17 08:34 (Proscar) 5 mg DAILY PO 10/13/17 09:00 10/26/17 08:35 (Breo Ellipta 200-25 Inh) 1 puff DAILY INH 10/13/17 09:00 10/26/17 08:38 (Flomax) 0.4 mg HS PO 10/13/17 21:00 10/24/17 21:38 (Desyrel) 100 mg HS PO 10/13/17 21:00 10/25/17 20:11 (NS Flush) 2 ml UNSCH PRN IV FLUSH 10/13/17 06:00 (NS Flush) 2 ml BID IV FLUSH 10/13/17 09:00 10/26/17 08:38 (Narcan Inj) 0.4 mg UNSCH PRN IV PUSH 10/13/17 06:00 (Oscal) 500 mg Q12HR PO 10/13/17 09:00 10/26/17 08:34 (Pill Splitter) 1 ea UNSCH PRN OTHER 10/13/17 06:15 Sodium Chloride 1,000 ml @ 83 mls/hr Q12H3M IV 10/13/17 15:00 10/26/17 08:36 (Symbicort 160-4.5 Mcg Inh) 2 puff Q12HR INH 10/13/17 21:00 10/26/17 08:38 (Apresoline) 10 mg Q6HR PRN PO 10/14/17 08:30 10/23/17 04:24 (Habitrol 21 Mg Patch.24 Hr) 1 patch DAILY T-DERMAL 10/15/17 09:00 10/26/17 08:35 Miscellaneous Information 1 DAILY T-DERMAL 10/15/17 09:00 10/26/17 08:34 (Lopressor) 25 mg BID PO 10/14/17 21:00 10/26/17 08:34 (Romazicon Inj) 0.2 mg Q1M PRN IV PUSH 10/15/17 10:00 (Catapres) 0.1 mg Q8HR PO 10/21/17 22:00 10/26/17 05:28 (Ceftin) 500 mg Q12HR PO 10/23/17 21:00 Future Hold 10/25/17 08:21 (Duoneb Neb) 1 ampule Q4HR NEB NEB 10/25/17 16:00 10/26/17 10:49 (SoluMEDROL INJ) 40 mg Q8HR IV PUSH 10/25/17 12:15 10/26/17 05:28 (Peridex 0.12% Liq) 15 ml BID@08,20 MT 10/25/17 20:00 10/26/17 08:34 Propofol 100 ml @ 2.07 mls/hr TITRATE PRN IV 10/25/17 16:00 10/26/17 05:06 Fentanyl Citrate 250 ml @ 5 mls/hr TITRATE PRN IV 10/25/17 16:00 10/25/17 17:37 (Tears Naturale Opth Soln) 1 drop Q8HR EACH EYE 10/25/17 22:00 10/26/17 05:28 (Prevacid Odt) 30 mg DAILY NG 10/26/17 09:00 10/26/17 08:34 Cefepime HCl 1000 mg/Sodium Chloride 100 ml @ 200 mls/hr Q8H IV 10/25/17 16:00 10/26/17 08:36 (Flagyl) 500 mg Q6HR PO 10/25/17 18:00 10/26/17 05:28 Fluconazole/ Sodium Chloride 50 ml @ 50 mls/hr Q24H IV 10/25/17 17:00 10/25/17 18:26 (Albuterol Neb) 2.5 mg Q2HR NEB PRN NEB 10/25/17 16:15 (Elvie-Colace) 1 tab BID PO 10/25/17 21:00 10/26/17 08:34 (Pulmicort Respule Neb) 0.5 mg Q12HR NEB NEB 10/25/17 20:00 10/26/17 07:29 (D50w (Vial) Inj) 50 ml UNSCH PRN IV PUSH 10/25/17 17:00 (Glucagon Inj) 1 mg UNSCH PRN OTHER 10/25/17 17:00 (NovoLIN R SUPPLEMENTAL SCALE) 1 Q6HR SQ 10/25/17 18:00 (Vitamin B1) 100 mg DAILY PO 10/26/17 09:00 10/26/17 08:34 (Folate) 1 mg DAILY PO 10/26/17 09:00 10/26/17 08:34 (Theragran) 1 tab DAILY PO 10/26/17 09:00 10/26/17 08:34 Miscellaneous Information Patient in critical care unit? Ass... Q361D .XX 10/25/17 22:00 10/25/17 22:00 (Chlorhexidine 2% Cloth) 3 pack DAILY@04 TOPICAL 10/26/17 04:00 10/30/17 04:01 10/26/17 03:53 (Chlorhexidine 2% Cloth) 3 pack UNSCH PRN TOPICAL 10/25/17 22:00 10/30/17 21:55 (Tylenol 650 Mg/ 20 ml Liq) 650 mg Q6H PRN PO 10/26/17 12:45 Assessment and Plan Problem List: (1) Respiratory failure ICD Codes: J96.90 - Respiratory failure, unspecified, unspecified whether with hypoxia or hypercapnia Plan: On Mechanical ventilation, Principal Solutions [employer] on case (2) Left lower lobe pneumonia ICD Codes: J18.1 - Lobar pneumonia, unspecified organism Status: Acute Plan: pulmonary following, Cefepime, Flagyl (3) COPD exacerbation ICD Codes: J44.1 - COPD exacerbation Status: Acute Plan: Followed by pulmonary Bronchodilators, Solu-medrol (4) Chronic renal disease ICD Codes: N18.9 - Chronic kidney disease Status: Chronic Plan: Renal following, History of nephrectomy r/t carcinoma. Avoid nephro toxins (5) Hypertension ICD Codes: I10 - Essential (primary) hypertension Status: Chronic Plan: On multiple agents. Cont to monitor (6) Alcohol abuse ICD Codes: F10.10 - Alcohol abuse Status: Chronic Plan: CIWA protocol (7) Weakness ICD Codes: R53.1 - Weakness Status: Acute Plan: will need snf/rehab at [facility] Problem Qualifiers (1) Left lower lobe pneumonia: Qualified Codes: J69.0 - Pneumonitis due to inhalation of food and vomit (2) Chronic renal disease: Qualified Codes: N18.3 - Chronic kidney disease, stage 3 (moderate) (3) Hypertension: Qualified Codes: I10 - Essential (primary) hypertension Sulma Macias Oct 26, 2017 13:36
[2017-10-26] MEDS: fentaNYL DRIP 250 ML IV PRN ×2 (14:21→16:51)
[2017-10-26] MEDS: FLUCONAZOLE 100 MG PREMIX BAG 50 ML IV SCH (16:57)
[2017-10-26] MEDS ORDERED: hydrALAZINE HCL 10 MG TAB PO PRN (18:15)
[2017-10-26] MEDS ORDERED: NITROGLYCERIN 2% OINT 1 GM PACKET TOPICAL PRN (18:15)
[2017-10-26] MEDS ORDERED: LABETALOL HCL 100 MG/20 ML VIAL IV PUSH PRN (18:15)
[2017-10-26] MEDS ORDERED: amLODIPine BESYLATE 5 MG TAB PO ONE (18:15)
--- NOTE | 2017-10-26 18:33 | HHI.PR ---
Subjective Remarks Was intubated over weekend for Respiratory failure . Now on vent support FIo2 40 % Chest X ray shows Basal infiltrates Sedated with diprivan Objective Vital Signs Date Time Temp Pulse Resp B/P (MAP) Pulse Ox O2 Delivery O2 Flow Rate FiO2 10/26/17 14:41 98 35 10/26/17 14:00 57 10/26/17 12:00 40 10/26/17 12:00 76 10/26/17 12:00 97.4 76 16 144/74 (97) 97 10/26/17 10:50 97 40 10/26/17 10:00 61 10/26/17 08:00 71 10/26/17 08:00 98.1 71 16 129/62 (84) 95 10/26/17 08:00 40 10/26/17 07:31 99 50 10/26/17 06:00 72 10/26/17 04:26 98 60 10/26/17 04:00 76 10/26/17 04:00 60 10/26/17 04:00 98.0 76 16 152/73 (99) 96 10/26/17 02:00 80 10/26/17 02:00 70 10/26/17 01:51 99 80 10/26/17 00:00 80 10/26/17 00:00 97.9 76 16 164/79 (107) 100 10/26/17 00:00 76 10/25/17 22:00 80 10/25/17 20:00 80 10/25/17 20:00 97.6 82 16 164/82 (109) 98 10/25/17 20:00 82 10/25/17 19:16 98 80 I/O 10/25/17 10/25/17 10/25/17 10/26/17 10/26/17 10/26/17 07:00 15:00 23:00 07:00 15:00 23:00 Intake Total 480 ml 250 ml 1086.4 ml Output Total 900 ml 1200 ml Balance -420 ml 250 ml -113.6 ml Intake Oral 480 ml 0 ml IV Total 250 ml 1086.4 ml Output Urine Total 900 ml 1100 ml Gastric Drainage Total 100 ml # Voids 2 # Bowel Movements 1 0 0 Result Diagram: 10/25/17 1153 10/25/17 1153 Objective Remarks GENERAL: This elderly, averagely built, white male is in no acute distress. Pallor noted. No cyanosis. There is no peripheral edema. No lymphadenopathy. HEENT: Head normocephalic. Pupils are reactive and equal. Tongue is moist. Nasal mucosa clear. NECK: No bruits. No venous distension . Trachea midline. CHEST: Equal movements with decreased breath sounds at bases and occ wheezes. HEART: Sounds were regular S1 and S2 with no murmur, no S3. ABDOMEN: Soft, protuberant without masses. No organomegaly or tenderness. Bowel sounds are active. EXTREMITIES: Decreased peripheral pulses and no edema. Reflexes are 1+. Neuro with no gross deficit. He is sedated Assessment and Plan Assessment and Plan IMPRESSION: 1. Chronic obstructive pulmonary disease with acute exacerbation. 2. Dehydration and acute kidney injury. 3. History of hypertension. 4. Left basilar pneumonia. 5. Left lung atelectasis Plan : 1. Vent support and wean FIO2 and vent rates. 2. Continue antibiotics per Dr Orellana 3. Tube feeds at 50 CC 4. PT evaluation 5. Duoneb nebs qid. 6. Resume heparin 5000U BID 7. Mucomyst 10 % 2 CC qid. 8. CXR,CBC,BMP in am. 9. Wean Sedation Vaibhav Tubbs MD Oct 26, 2017 18:33
--- NOTE | 2017-10-26 19:41 | PQ ---
Physician Query Response Document PATIENT: ALEXI ORELLANA : 1945 ADMIT DATE: 10/13/2017 5:34 AM DISCH DATE: RESPONDING PROVIDER #: [email or web address] QUERY TEXT: Clarification of Clinical Diagnostic Findings Acute respiratory failure POA in the setting of COPD exacerbation with respiratory insufficiency requ iring treatment with oxygen, undrafts x 3, and pulmonary consult with ICU admit. Other explanation of clinical findings. Unable to determine (no explanation for clinical findings). The patient's Clinical Indicators include: * Clinical Indicators markedly short of breath with marked expiratory wheezing hr 100 rr 24 o2 sat 96 on 4L ?Risk Factors Respiratory insufficiency / copd exacerbation ?Treatment O2 4L, 3 undraft treatments continues pulse oximetry, pulmonary consult and ICU admit Please clarify and document your clinical opinion in the progress notes and discharge summary includi ng the definitive and/or presumptive diagnosis (suspected or probable), related to the above clinical findings. Please include clinical findings supporting your diagnosis. Thank you, Sloane Anderson CDS: Sloane Anderson Patient Unit: [id number] Contact Number: [phone] Room: 1317 Query created by: Sloane Anderson on 10/20/2017 11:29 AM RESPONSE TEXT: Pt had acute respiratory failure in the setting of copd with respiratory insufficency present upon ad mission Electronically signed by: Tez Sidhu MD 10/26/2017 7:38 PM
[2017-10-26] MEDS: TAMSULOSIN HCL 0.4 MG CAP PO SCH (21:13)
[2017-10-26] MEDS: traZODone HCL 100 MG TAB PO SCH (21:13)
[2017-10-26 21:42] LABS: HEMATOCRIT 39.8 % (39.0-51.0); HEMOGLOBIN 13.8 GM/DL (13.0-17.0); MEAN CELL VOLUME 100.3 FL (80.0-100.0); MEAN CORPUSCULAR HEMOGLOBIN 34.8 PG (27.0-34.0); MEAN CORPUSCULAR HGB CONC 34.7 % (32.0-36.0); MEAN PLATELET VOLUME 9.8 FL (7.0-11.0); PLATELET COUNT 150 TH/MM3 (150-450); RED BLOOD COUNT 3.97 MIL/MM3 (4.50-5.90); RED CELL DISTRIBUTION WIDTH 12.8 % (11.6-17.2); WHITE BLOOD COUNT 11.8 TH/MM3 (4.0-11.0)
[2017-10-26 21:58] LABS: BICARBONATE 23.3 MEQ/L (21.0-32.0); CALCIUM 8.7 MG/DL (8.5-10.1); CREATININE 1.36 MG/DL (0.60-1.30)
[2017-10-27] VITALS (20 sets, daily range): BP systolic 90–199; BP diastolic 51–82; PULSE 47–67; RESP 5–17; TEMP 97.2–98; O2SAT 91–100
[2017-10-27] MEDS: PROPOFOL 1000 MG/100 ML INJ 100 ML IV PRN ×2 (00:10→05:26)
[2017-10-27] MEDS: RESP: ALBUTEROL 2.5 MG/IPRATROPIUM 0.5 MG NEB (SCH) NEB ×6 (03:19→23:26)
[2017-10-27] MEDS: CHLORHEXIDINE GLUCONATE 2 % 1 PACK (2 CLOTHS)(taper/protocol) TOPICAL SCH (04:00)
[2017-10-27] MEDS: fentaNYL DRIP 250 ML IV PRN ×2 (04:04→18:37)
--- NOTE | 2017-10-27 05:10 | RADRPT ---
EXAM DATE/TIME: 10/27/2017 03:53 [facility] COMPARISON: CHEST SINGLE AP, October 25, 2017, 16:44. INDICATIONS : Short of breath. MEDICAL HISTORY : Renal calculi. Chronic obstructive pulmonary disease. Renal cell carcinoma SURGICAL HISTORY : Nephrectomy, left. ENCOUNTER: Subsequent ACUITY: 1 week PAIN SCORE: 0/10 LOCATION: Bilateral chest FINDINGS: 2 portable frontal views of the chest show a left pleural effusion and left lower lobe infiltrate. Th is is unchanged. No infiltrate or effusion is seen on the right side on the current study. The heart is at the upper limits of normal in terms of size. Tip of the endotracheal tube 4 cm proximal to dagoberto na. Nasogastric tube within the region of the body of the stomach. CONCLUSION: 1. Resolution of the right effusion and infiltrate. 2. Unchanged left effusion and infiltrate. Jose Roberto Benitez Jr., MD on October 27, 2017 at 5:08 Board Certified Radiologist. This report was verified electronically.
[2017-10-27] MEDS: INSULIN NovoLIN REGULAR SUPPLEMENTAL SCALE SQ SCH ×4 (06:00→23:54)
[2017-10-27] MEDS: ARTIFICIAL TEARS OPTH SOLN 15 ML BTL EACH EYE SCH ×3 (06:00→20:37)
[2017-10-27] MEDS: methylPREDNISolone SOD SUCC 40 MG/1 ML VIAL IV PUSH SCH ×3 (06:01→20:36)
[2017-10-27] MEDS: cloNIDine HCL 0.1 MG TAB PO SCH ×3 (06:01→21:00)
[2017-10-27] MEDS: metroNIDAZOLE 500 MG TAB PO SCH ×4 (06:01→23:47)
[2017-10-27 07:03] LABS: AUTOMATED NEUTROPHIL # 10.5 TH/MM3 (1.8-7.7); BASOPHIL % 0.2 % (0.0-2.0); EOSINOPHIL % 0.1 % (0.0-4.0); HEMATOCRIT 40.3 % (39.0-51.0); LYMPH % 4.5 % (9.0-44.0); LYMPHOCYTE # 0.5 TH/MM3 (1.0-4.8); MEAN CELL VOLUME 101.3 FL (80.0-100.0); MEAN CORPUSCULAR HEMOGLOBIN 35.2 PG (27.0-34.0); MEAN CORPUSCULAR HGB CONC 34.7 % (32.0-36.0); MEAN PLATELET VOLUME 9.9 FL (7.0-11.0); MONO % 2.8 % (0.0-8.0); MONOCYTE # 0.3 TH/MM3 (0-0.9); NEUT % 92.4 % (16.0-70.0); PLATELET COUNT 155 TH/MM3 (150-450); RED BLOOD COUNT 3.98 MIL/MM3 (4.50-5.90); WHITE BLOOD COUNT 11.4 TH/MM3 (4.0-11.0)
[2017-10-27 07:29] LABS: ALKALINE PHOSPHATASE 51 U/L (45-117); ALT (GPT) 38 U/L (12-78); PHOSPHORUS 3.2 MG/DL (2.5-4.9); TOTAL BILIRUBIN ADULT 0.3 MG/DL (0.2-1.0); TOTAL PROTEIN 5.4 GM/DL (6.4-8.2)
[2017-10-27 07:35] LABS: ALBUMIN 2.2 GM/DL (3.4-5.0); AST (GOT) 19 U/L (15-37); BICARBONATE 22.3 MEQ/L (21.0-32.0); BLOOD UREA NITROGEN 33 MG/DL (7-18); CALCIUM 8.6 MG/DL (8.5-10.1); CHLORIDE 111 MEQ/L (98-107); CREATININE 1.33 MG/DL (0.60-1.30); GLOMERULAR FILTRATION RATE 53 ML/MIN (>89); GLUCOSE,RANDOM 156 MG/DL (74-106); MAGNESIUM 2.5 MG/DL (1.5-2.5); SODIUM (NA) 142 MEQ/L (136-145)
[2017-10-27] MEDS: LANSOPRAZOLE SOLUTAB 30 MG TAB NG SCH (07:35)
[2017-10-27] MEDS: DOCUSATE SODIUM 50 MG/SENNA 8.6 MG TAB PO SCH ×2 (07:35→20:36)
[2017-10-27] MEDS: FINASTERIDE 5 MG TAB PO SCH (07:36)
[2017-10-27] MEDS: CALCIUM CARBONATE 1.25 GM (CA 500 MG) TAB PO SCH ×2 (07:36→20:36)
[2017-10-27] MEDS: MULTIVITAMIN TAB PO SCH (07:36)
[2017-10-27] MEDS: FOLIC ACID 1 MG TAB PO SCH (07:36)
[2017-10-27] MEDS: DOXAZOSIN MESYLATE 4 MG TAB PO SCH (07:36)
[2017-10-27] MEDS: THIAMINE HCL 100 MG TAB PO SCH (07:36)
[2017-10-27] MEDS: SODIUM CHLORIDE 0.9% FLUSH 10 ML FLUSH IV FLUSH SCH ×2 (07:36→20:37)
[2017-10-27] MEDS: CEFEPIME INJ 1,000 MG in SODIUM CHLORIDE 0.9% INJ 100 ML IV SCH ×3 (07:37→23:47)
[2017-10-27] MEDS: NICOTINE 21 MG/24 HR PATCH T-DERMAL SCH (07:37)
[2017-10-27] MEDS: REMOVE OLD PATCH T-DERMAL SCH (07:37)
[2017-10-27] MEDS: METOPROLOL TARTRATE 25 MG TAB PO SCH ×2 (07:37→20:37)
[2017-10-27] MEDS: BUDESONIDE-FORMOTEROL 160/4.5 MCG INHALER INH SCH (07:38)
[2017-10-27] MEDS: FLUTICASONE 200 MCG/VILANTEROL 25 MCG INHALER INH SCH (07:38)
[2017-10-27] MEDS: CHLORHEXIDINE 0.12% (ORAL KIT) 15 ML CUP MT SCH ×2 (07:39→20:00)
[2017-10-27] MEDS: RESP: BUDESONIDE 0.5 MG/2 ML NEB NEB SCH ×2 (07:53→20:55)
[2017-10-27] MEDS: MIDAZOLAM 100 MG/100 ML INJ 100 ML IV PRN (08:39)
--- NOTE | 2017-10-27 08:50 | HHI.PR ---
Subjective Remarks No changes throughout night, remains on MV Objective Vital Signs Date Time Temp Pulse Resp B/P (MAP) Pulse Ox O2 Delivery O2 Flow Rate FiO2 10/27/17 07:53 99 35 10/27/17 06:00 47 10/27/17 04:30 99 35 10/27/17 04:00 35 10/27/17 04:00 57 10/27/17 04:00 98.0 57 13 140/65 (90) 95 10/27/17 02:00 51 10/27/17 01:30 98 35 10/27/17 00:00 51 10/27/17 00:00 97.9 51 16 167/73 (104) 96 10/27/17 00:00 35 10/26/17 23:29 97 35 10/26/17 22:00 52 10/26/17 20:01 98 35 10/26/17 20:00 35 10/26/17 20:00 97.9 54 16 166/76 (106) 97 10/26/17 20:00 54 10/26/17 19:00 35 10/26/17 18:00 57 10/26/17 16:00 57 10/26/17 16:00 40 10/26/17 16:00 97.8 57 16 157/72 (100) 96 10/26/17 14:41 98 35 10/26/17 14:00 57 10/26/17 12:00 40 10/26/17 12:00 76 10/26/17 12:00 97.4 76 16 144/74 (97) 97 10/26/17 10:50 97 40 10/26/17 10:00 61 I/O 10/26/17 10/26/17 10/26/17 10/27/17 10/27/17 10/27/17 07:00 15:00 23:00 07:00 15:00 23:00 Intake Total 1086.4 ml 250 ml 435 ml 1052 ml Output Total 1200 ml 1000 ml 1200 ml Balance -113.6 ml 250 ml -565 ml -148 ml Intake Oral 0 ml IV Total 1086.4 ml 250 ml 345 ml 780 ml Tube Feeding 122 ml Tube Irrigant 90 ml 150 ml Output Urine Total 1100 ml 850 ml 1200 ml Gastric Drainage Total 100 ml 150 ml # Bowel Movements 0 0 Result Diagram: 10/27/17 0540 10/27/17 0540 Imaging Last 72 hours Impressions Chest X-Ray 10/27/17 0600 Signed Impressions: Service Date/Time: Friday, October 27, 2017 03:53 - CONCLUSION: 1. Resolution of the right effusion and infiltrate. 2. Unchanged left effusion and infiltrate. Jose Roberto Benitez Jr., MD Renal Ultrasound 10/25/17 0000 Signed Impressions: Service Date/Time: Wednesday, October 25, 2017 16:26 - CONCLUSION: 1. Echogenic kidneys characteristic of medical renal disease. No hydronephrosis. Small renal cysts. Prostatic enlargement. Ole Eckert MD Chest X-Ray 10/25/17 0000 Signed Impressions: Service Date/Time: Wednesday, October 25, 2017 16:44 - CONCLUSION: 1. Intubation with NG tube and endotracheal tube in good position. Basilar airspace disease and effusions persist. Ole Eckert MD Chest X-Ray 10/25/17 0000 Signed Impressions: Service Date/Time: Wednesday, October 25, 2017 10:20 - CONCLUSION: Persistent bibasilar airspace disease without significant improvement. Gavino Trotter MD Objective Remarks GENERAL: This is a well-nourished, elderly male in mechanical ventilation SKIN: No rashes, ecchymotic area to B/L UE HEAD: Atraumatic. Normocephalic. No temporal or scalp tenderness. EYES: Pupils equal round and reactive. Extraocular motions intact. No scleral icterus. No injection or drainage. ENT: Nose without bleeding, purulent drainage NECK: Trachea midline. No JVD CARDIOVASCULAR: Regular rate and rhythm without murmurs, gallops, or rubs. RESPIRATORY: Equal B/l, clear GASTROINTESTINAL: Abdomen soft, non-tender, nondistended. MUSCULOSKELETAL: trace edema NEUROLOGICAL: sedated on vent Medications and IVs Current Medications Medications (Trade) Dose Ordered Sig/Nayeli Route Start Time Stop Time Status Last Admin (Cardura) 8 mg DAILY PO 10/13/17 09:00 10/27/17 07:36 (Proscar) 5 mg DAILY PO 10/13/17 09:00 10/27/17 07:36 (Breo Ellipta 200-25 Inh) 1 puff DAILY INH 10/13/17 09:00 10/27/17 07:38 (Flomax) 0.4 mg HS PO 10/13/17 21:00 10/26/17 21:13 (Desyrel) 100 mg HS PO 10/13/17 21:00 10/26/17 21:13 (NS Flush) 2 ml UNSCH PRN IV FLUSH 10/13/17 06:00 (NS Flush) 2 ml BID IV FLUSH 10/13/17 09:00 10/27/17 07:36 (Narcan Inj) 0.4 mg UNSCH PRN IV PUSH 10/13/17 06:00 (Oscal) 500 mg Q12HR PO 10/13/17 09:00 10/27/17 07:36 (Pill Splitter) 1 ea UNSCH PRN OTHER 10/13/17 06:15 Sodium Chloride 1,000 ml @ 83 mls/hr Q12H3M IV 10/13/17 15:00 10/26/17 20:57 (Symbicort 160-4.5 Mcg Inh) 2 puff Q12HR INH 10/13/17 21:00 10/27/17 07:38 (Habitrol 21 Mg Patch.24 Hr) 1 patch DAILY T-DERMAL 10/15/17 09:00 10/27/17 07:37 Miscellaneous Information 1 DAILY T-DERMAL 10/15/17 09:00 10/27/17 07:37 (Lopressor) 25 mg BID PO 10/14/17 21:00 10/26/17 21:13 (Romazicon Inj) 0.2 mg Q1M PRN IV PUSH 10/15/17 10:00 (Catapres) 0.1 mg Q8HR PO 10/21/17 22:00 10/27/17 06:01 (Ceftin) 500 mg Q12HR PO 10/23/17 21:00 Future Hold 10/25/17 08:21 (Duoneb Neb) 1 ampule Q4HR NEB NEB 10/25/17 16:00 10/27/17 07:53 (SoluMEDROL INJ) 40 mg Q8HR IV PUSH 10/25/17 12:15 10/27/17 06:01 (Peridex 0.12% Liq) 15 ml BID@08,20 MT 10/25/17 20:00 10/27/17 07:39 Propofol 100 ml @ 2.07 mls/hr TITRATE PRN IV 10/25/17 16:00 10/27/17 05:26 Fentanyl Citrate 250 ml @ 5 mls/hr TITRATE PRN IV 10/25/17 16:00 10/27/17 04:04 (Tears Naturale Opth Soln) 1 drop Q8HR EACH EYE 10/25/17 22:00 10/26/17 14:16 (Prevacid Odt) 30 mg DAILY NG 10/26/17 09:00 10/27/17 07:35 Cefepime HCl 1000 mg/Sodium Chloride 100 ml @ 200 mls/hr Q8H IV 10/25/17 16:00 10/27/17 07:37 (Flagyl) 500 mg Q6HR PO 10/25/17 18:00 10/27/17 06:01 Fluconazole/ Sodium Chloride 50 ml @ 50 mls/hr Q24H IV 10/25/17 17:00 10/26/17 16:57 (Albuterol Neb) 2.5 mg Q2HR NEB PRN NEB 10/25/17 16:15 (Elvie-Colace) 1 tab BID PO 10/25/17 21:00 10/27/17 07:35 (Pulmicort Respule Neb) 0.5 mg Q12HR NEB NEB 10/25/17 20:00 10/27/17 07:53 (D50w (Vial) Inj) 50 ml UNSCH PRN IV PUSH 10/25/17 17:00 (Glucagon Inj) 1 mg UNSCH PRN OTHER 10/25/17 17:00 (NovoLIN R SUPPLEMENTAL SCALE) 1 Q6HR SQ 10/25/17 18:00 (Vitamin B1) 100 mg DAILY PO 10/26/17 09:00 10/27/17 07:36 (Folate) 1 mg DAILY PO 10/26/17 09:00 10/27/17 07:36 (Theragran) 1 tab DAILY PO 10/26/17 09:00 10/27/17 07:36 Miscellaneous Information Patient in critical care unit? Ass... Q361D .XX 10/25/17 22:00 10/25/17 22:00 (Chlorhexidine 2% Cloth) 3 pack DAILY@04 TOPICAL 10/26/17 04:00 10/30/17 04:01 10/27/17 04:00 (Chlorhexidine 2% Cloth) 3 pack UNSCH PRN TOPICAL 3/11/18 22:00 10/30/17 21:55 (Tylenol 650 Mg/ 20 ml Liq) 650 mg Q6H PRN PO 10/26/17 12:45 (Apresoline) 10 mg Q1H PRN PO 10/26/17 18:15 10/27/17 08:16 (Trandate Inj) 10 mg Q1H PRN IV PUSH 10/26/17 18:15 (Nitroglycerin 2% Oint) 2 inch Q6HR PRN TOPICAL 10/26/17 18:15 10/27/17 08:16 (Norvasc) 10 mg DAILY PO 10/27/17 09:00 Midazolam HCl 100 ml @ 2 mls/hr TITRATE PRN IV 10/27/17 08:15 10/27/17 08:39 (Apresoline) 25 mg Q8HR PO 10/27/17 14:00 (Isordil) 10 mg Q8HR PO 10/27/17 08:15 Assessment and Plan Problem List: (1) Respiratory failure ICD Codes: J96.90 - Respiratory failure, unspecified, unspecified whether with hypoxia or hypercapnia Plan: On Mechanical ventilation, Lug Loader on case (2) Left lower lobe pneumonia ICD Codes: J18.1 - Lobar pneumonia, unspecified organism Status: Acute Plan: pulmonary following, Cefepime, Flagyl (3) COPD exacerbation ICD Codes: J44.1 - COPD exacerbation Status: Acute Plan: Followed by pulmonary Bronchodilators, Solu-medrol (4) Chronic renal disease ICD Codes: N18.9 - Chronic kidney disease Status: Chronic Plan: Renal following, History of nephrectomy r/t carcinoma. Avoid nephro toxins (5) Hypertension ICD Codes: I10 - Essential (primary) hypertension Status: Chronic Plan: On multiple agents. Cont to monitor (6) Alcohol abuse ICD Codes: F10.10 - Alcohol abuse Status: Chronic Plan: CIWA protocol (7) Weakness ICD Codes: R53.1 - Weakness Status: Acute Plan: will need snf/rehab at [place] Assessment and Plan Cpap trial, today. Problem Qualifiers (1) Left lower lobe pneumonia: Qualified Codes: J69.0 - Pneumonitis due to inhalation of food and vomit (2) Chronic renal disease: Qualified Codes: N18.3 - Chronic kidney disease, stage 3 (moderate) (3) Hypertension: Qualified Codes: I10 - Essential (primary) hypertension Sulma Macias Oct 27, 2017 08:50
[2017-10-27] MEDS ORDERED: amLODIPine BESYLATE 5 MG TAB PO SCH (09:00)
--- NOTE | 2017-10-27 09:36 | HHI.NPPN ---
Subjective Complaints: Shortness of Breath General Problems: Edema, Hypertension Renal Failure: Chronic, Acute History of Present Illness Patient is a 72-year-old male presents to the emergency department by EMS transport from home s/p fall after getting out of bed and being to weak to get up. Patient states he has chronic COPD and this morning was getting up out of bed without his walker to go to the bathroom and noticed that when he stood up that both of his legs are weak causing him to fall to the floor. Denies any fevers, CP, nausea, vomiting or diarrhea. 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 Nephrology was consulted of hypocalcemia, electrolyte imbalance, and CKD, Was found to have a calcium level of 6.6, potassium level of 2.8, creatinine of 1.74 and GFR of 37 ml/min. Patient drinks 12 oz of 94 proof GIN daily. Additional Remarks Patient is sedated and intubated. (Raysa Bhakta) Review of Systems General General Remarks Sedated and intubated (Raysa Bhakta) Objective Data Data Vital Signs Date Time Temp Pulse Resp B/P (MAP) Pulse Ox O2 Delivery O2 Flow Rate FiO2 10/27/17 07:53 99 35 10/27/17 06:00 47 10/27/17 04:30 99 35 10/27/17 04:00 35 10/27/17 04:00 57 10/27/17 04:00 98.0 57 13 140/65 (90) 95 10/27/17 02:00 51 10/27/17 01:30 98 35 10/27/17 00:00 51 10/27/17 00:00 97.9 51 16 167/73 (104) 96 10/27/17 00:00 35 10/26/17 23:29 97 35 10/26/17 22:00 52 10/26/17 20:01 98 35 10/26/17 20:00 35 10/26/17 20:00 97.9 54 16 166/76 (106) 97 10/26/17 20:00 54 10/26/17 19:00 35 10/26/17 18:00 57 10/26/17 16:00 57 10/26/17 16:00 40 10/26/17 16:00 97.8 57 16 157/72 (100) 96 10/26/17 14:41 98 35 10/26/17 14:00 57 10/26/17 12:00 40 10/26/17 12:00 76 10/26/17 12:00 97.4 76 16 144/74 (97) 97 10/26/17 10:50 97 40 10/26/17 10:00 61 (Raysa Bhakta) -: 10/27/17 0540 10/27/17 0540 Imaging Last Impressions Chest X-Ray 10/27/17 0600 Signed Impressions: Service Date/Time: Friday, October 27, 2017 03:53 - CONCLUSION: 1. Resolution of the right effusion and infiltrate. 2. Unchanged left effusion and infiltrate. Jose Roberto Benitez Jr., MD Renal Ultrasound 10/25/17 0000 Signed Impressions: Service Date/Time: Wednesday, October 25, 2017 16:26 - CONCLUSION: 1. Echogenic kidneys characteristic of medical renal disease. No hydronephrosis. Small renal cysts. Prostatic enlargement. Ole Eckert MD Chest CT 10/13/17 1313 Signed Impressions: Service Date/Time: Friday, October 13, 2017 15:15 - CONCLUSION: 1. Left upper lobe and left lower lobe consolidation likely infiltrate. Recommend treatment and followup to resolution. 2. Mild emphysema without mass or concerning nodule. 3. Minimal coronary artery calcifications. Allen Alexander MD Lower Extremity Ultrasound 10/13/17 0000 Signed Impressions: Service Date/Time: Friday, October 13, 2017 04:08 - CONCLUSION: 1. No sonographic evidence for right lower extremity DVT. Pedro Bunn MD Ankle X-Ray 10/13/17 0000 Signed Impressions: Service Date/Time: Friday, October 13, 2017 03:58 - CONCLUSION: 1. Diffuse soft tissue swelling without radiopaque foreign bodies, acute fracture or bony erosion. Pedro Bunn MD (Raysa Bhakta) Physical Exam General Appearance: No Acute Distress Appearance Remarks Intubated (Raysa Bhakta) Eyes Eye Exam: Pupils Equal (Raysa Bhakta) Pulmonary Resp Exam: Breath Sounds Equal, No Distress, Decreased Bases (Raysa Bhakta) Cardiology CV Exam: Regular (Raysa Bhakta) Gastrointestinal/Abdomen GI Exam: Soft, Non-Tender, Bowel Sounds Present (Raysa Bhakta) Genitourinary Exam: Flank Non-Tender (Raysa Bhakta) Integumentary Skin Exam: Clear, Warm Skin Remarks bruising present (Raysa Bhakta) Extremeties Extremities Exam: Trace Edema (Raysa Bhakta) Neurologic Neuro Exam: Sedated (Raysa Bhakta) Assessment/Plan Problem List: (1) Chronic renal disease ICD Codes: N18.9 - Chronic kidney disease Status: Chronic Plan: Patient with history of right partial nephrectomy for tumor. Most likely has CKD from HTN or renal vascular disease Patient has BERE, possibly pre renal or ATN. Proteinuria noted Plan Creatinine is stable at 1.31 Potassium WNL Indwelling Muñoz catheter remains with UOP at 2700 over past 24 hours Follow the urine out put and BMP. (2) Disorder of electrolytes ICD Codes: E87.8 - Other disorders of electrolyte and fluid balance, not elsewhere classified Status: Acute Plan: Calcium found to be at 6.6 and Potassium of 2.8 on admission Patient has received replacement and now WNL (3) COPD exacerbation ICD Codes: J44.1 - COPD exacerbation Status: Acute Plan: Continue O2 Mild SOB (4) Lactic acidosis ICD Codes: E87.2 - Acidosis Status: Acute Plan: Resolved (5) Hypertension ICD Codes: I10 - Essential (primary) hypertension Status: Chronic Plan: Well controlled (6) Weakness ICD Codes: R53.1 - Weakness Status: Acute Plan: Patient is very deconditioned and plan is for rehab (Raysa Bhakta) Problem List: (1) Chronic renal disease ICD Codes: N18.9 - Chronic kidney disease Status: Chronic Plan: Patient with history of right partial nephrectomy for tumor. Most likely has CKD from HTN or renal vascular disease Patient has BERE, possibly pre renal or ATN. Proteinuria noted Plan Creatinine is stable at 1.31 Potassium WNL Indwelling Muñoz catheter remains with UOP at 2700 over past 24 hours Follow the urine out put and BMP. Patient seen and examined, agree with above. Creatinine is stable, has been non oliguric. (2) Disorder of electrolytes ICD Codes: E87.8 - Other disorders of electrolyte and fluid balance, not elsewhere classified Status: Acute Plan: Calcium found to be at 6.6 and Potassium of 2.8 on admission Patient has received replacement and now WNL (3) COPD exacerbation ICD Codes: J44.1 - COPD exacerbation Status: Acute Plan: Continue O2 Mild SOB (4) Lactic acidosis ICD Codes: E87.2 - Acidosis Status: Acute Plan: Resolved (5) Hypertension ICD Codes: I10 - Essential (primary) hypertension Status: Chronic Plan: Well controlled (6) Weakness ICD Codes: R53.1 - Weakness Status: Acute Plan: Patient is very deconditioned and plan is for rehab (Roberto Benitez MD) Problem Qualifiers (1) Chronic renal disease: Qualified Codes: N18.3 - Chronic kidney disease, stage 3 (moderate) (2) Hypertension: Qualified Codes: I10 - Essential (primary) hypertension Raysa Bhakta Oct 27, 2017 09:36 Roberto Benitez MD Oct 27, 2017 20:37
[2017-10-27] MEDS: ISOSORBIDE DINITRATE 10 MG TAB PO SCH ×3 (10:43→22:00)
[2017-10-27] MEDS: SODIUM CHLOR 0.9% 1000 ML INJ 1,000 ML IV SCH ×2 (10:44→21:03)
--- NOTE | 2017-10-27 11:32 | HHI.CCPN ---
Subjective Remarks/Hospital Course The patient is a 72 year old male with past medical history of hypertension, COPD, Active tobacco use, renal CA. Who presented to [facility] ED , status post fall. He denies any chest pain, however, he reports some shortness of breath with wheezing, the patient denies any cough or any constitutional symptoms. He also reports swelling in his right lower extremity for the past two months. The patient denies any use of oxygen at home however, he uses Combivent and Breo. When paramedics arrived the patient was short of breath and he required three up draft treatments for expiratory wheezing, in addition, he received a dose of Qepf-Xlqliz-Zgyphj Medrol. The patient denies any nausea, vomiting or any abdominal pain. His initial laboratory data showed acute kidney injury with a creatinine level of 1.82 and lactic acid level of 4.4. Chest x-ray in the ED showed persistent left lung airspace disease, likely atelectasis and scarring , otherwise no acute abnormality or any significant interval change. Ultrasound of the right lower extremity was preformed which showed no evidence of any DVT. The patient is being admitted to Dr. Barrett 's service. 10/25: Reconsult secondary to worsening hypoxia on BiPAP. Status post bronchoscopy 10/22 currently only growing rare budding yeast. Will require intubation will contact son Eyal prior 10/26: Appears comfortable on ventilator. Hemodynamically stable. Requiring propofol and fentanyl drips for sedation. Subjective 10/27: Afebrile. FiO2 down to 35%. Bradycardic on propofol. Patient is also on clonidine and metoprolol tartrate will titrate down increase other antihypertensives that do not cause bradycardia. Tolerating tube feeding. No bowel movement 48 hours. Objective Vital Signs Date Time Temp Pulse Resp B/P (MAP) Pulse Ox O2 Delivery O2 Flow Rate FiO2 10/27/17 10:00 47 10/27/17 08:00 97.9 16 199/82 (121) 97 10/27/17 08:00 35 10/25/17 09:30 Nasal Cannula 5.00 Intake and Output 10/27/17 10/27/17 10/27/17 07:59 15:59 23:59 Intake Total 1052 ml 160 ml Output Total 1200 ml 0 ml Balance -148 ml 160 ml Result Diagram: 10/27/17 0540 10/27/17 0540 Other Results Microbiology Date/Time Source Procedure Growth Status 10/25/17 18:50 Blood Peripheral Aerobic Blood Culture - Preliminary NO GROWTH IN 2 DAYS Resulted 10/25/17 18:50 Blood Peripheral Anaerobic Blood Culture - Preliminary NO GROWTH IN 2 DAYS Resulted 10/22/17 11:35 Bronchial Washings Bronchial Fungal Smear - Final RARE BUDDING YEAST CELLS Resulted 10/22/17 11:35 Bronchial Washings Bronchial Fungal Culture - Preliminary Resulted Imaging Last Impressions Chest X-Ray 10/27/17 0600 Signed Impressions: Service Date/Time: Friday, October 27, 2017 03:53 - CONCLUSION: 1. Resolution of the right effusion and infiltrate. 2. Unchanged left effusion and infiltrate. Jose Roberto Benitez Jr., MD Renal Ultrasound 10/25/17 0000 Signed Impressions: Service Date/Time: Wednesday, October 25, 2017 16:26 - CONCLUSION: 1. Echogenic kidneys characteristic of medical renal disease. No hydronephrosis. Small renal cysts. Prostatic enlargement. Ole Eckert MD Chest CT 10/13/17 1313 Signed Impressions: Service Date/Time: Friday, October 13, 2017 15:15 - CONCLUSION: 1. Left upper lobe and left lower lobe consolidation likely infiltrate. Recommend treatment and followup to resolution. 2. Mild emphysema without mass or concerning nodule. 3. Minimal coronary artery calcifications. Allen Alexander MD Lower Extremity Ultrasound 10/13/17 0000 Signed Impressions: Service Date/Time: Friday, October 13, 2017 04:08 - CONCLUSION: 1. No sonographic evidence for right lower extremity DVT. Pedro Bunn MD Ankle X-Ray 10/13/17 0000 Signed Impressions: Service Date/Time: Friday, October 13, 2017 03:58 - CONCLUSION: 1. Diffuse soft tissue swelling without radiopaque foreign bodies, acute fracture or bony erosion. Pedro Bunn MD Objective Remarks GENERAL: This is a 72-year-old male resting in bed orotracheally intubated SKIN: Warm and dry. HEAD: Atraumatic. Normocephalic. EYES: Pupils equal and round. No scleral icterus. No injection or drainage. ENT: No nasal bleeding or discharge. Mucous membranes pink and moist. NECK: Trachea midline. No JVD. CARDIOVASCULAR: Regular rate and rhythm. S1, S2 no S4. RESPIRATORY: Diminished breath sounds in the bases bilaterally. No wheezing. GASTROINTESTINAL: Abdomen soft, non-tender, nondistended. Hepatic and splenic margins not palpable. MUSCULOSKELETAL: Extremities without significant peripheral edema. No obvious deformities. NEUROLOGICAL: Positive gag. Positive corneal reflex. Withdraws to pain in all 4 extremities. Urinary Catheter: Yes Assessment to: Continue Muñoz insert reason: Prolonged Immobilization Vascular Central Line Catheter: No Assessment to: Continue A/P Assessment and Plan Neuro/Psych: EtOH -12 ounces of gin daily Peripheral neuropathy Depression Currently on propofol at 50 mcg/kg/min/fentanyl drips at 100 mcg an hour for sedation/analgesia while intubated Switched to midazolam Goal of RASS -2 Daily sedation vacation Discontinue CIWA protocol while intubated Thiamine, multivitamin and folic acid daily Continue trazodone 100 mg at night/home medication CV: Hypertension Dyslipidemia Previously on metoprolol 25 mg twice daily, amlodipine 10 mg daily, Catapres 0.1 mg every 8 hours and lisinopril 5 mg daily. Also on doxazosin 8 mg p.o. daily Hold lisinopril with acute kidney injury Restart amlodipine at 10 mg daily. Also decrease clonidine 0.1 twice daily with bradycardia Noted home medication metoprolol 12.5 mg twice daily at home. Will decrease to 12.5 twice daily from 25 currently Currently normal saline at 83 cc an hour Resp: Acute hypoxemic respiratory failure COPD with ongoing tobaccoism Hypertension Hyperlipidemia [facility] 16/08/21/34 Ventilator bundle Albuterol/ipratropium aerosols every 4 hours with albuterol aerosols every 2 hours as needed dyspnea Continue budesonide 0.5/2 1 inhalation twice daily On fluticasone/Vilanterol 200/25 daily at home Follow-up chest x-ray in a.m. 10/28 GI: Gastroesophageal reflux disease Hypoalbuminemia Nasogastric tube to low intermittent wall suction Continue tube feedings with Nepro goal 40 cc an hour per nutrition's recommendations Lansoprazole 30 mg daily for GI prophylaxis Docusate sodium/senna 1 tablet twice daily for bowel regimen. Add polyethylene glycol 17 g daily : BPH History of bladder outlet obstruction Continue Muñoz catheter Holding tamsulosin 0.4 mg daily and finasteride 5 mg daily as unable to pass down tube Endo: Sliding scale insulin with Accu-Cheks to maintain euglycemia/every 6 hours Novolin R medium protocol Renal: Acute renal insufficiency History of right renal carcinoma status post right partial nephrectomy/ nephrostomy tube placement as well Partial obstructing right renal calculus Left renal cyst Creatinine baseline within normal limits Essentially no new finding renal ultrasound repeated 10/25. Medical renal disease, left cyst. Urine electrolytes and eosinophils Renal ultrasound 10/13 with left renal cyst, partially obstructing right renal calculus Avoid nephrotoxic drugs Heme: Macrocytic anemia Thrombocytopenia Monitor CBC daily. Follow trends ID: Placed on cefepime 2 g every 12 hours and metronidazole 500 mg every 6 hours Fluconazole 100 mg daily Pertinent cultures 10/25 -blood cultures 2 no growth 10/22 -bronc -rare budding yeast 10/13 -blood cultures 2 -no growth to date MSK: PT evaluate and treat FEN: Replace electrolytes as clinically indicated Access -Utilize peripheral IV. Central line if indicated Prophylaxis -GI lansoprazole -DVT -SCD/heparin subcu Level 3 follow-up Grant Orellana MD Oct 27, 2017 11:32
[2017-10-27] MEDS: hydrALAZINE HCL 25 MG TAB PO SCH ×2 (14:00→22:00)
[2017-10-27] MEDS: FLUCONAZOLE 100 MG PREMIX BAG 50 ML IV SCH (17:06)
--- NOTE | 2017-10-27 18:45 | HHI.PR ---
Subjective Remarks Was intubated over weekend for Respiratory failure . Remains on vent support FIo2 40 % Chest X ray shows Basal infiltrates. Was on CPAP for 15 Mins. off sedation. Objective Vital Signs Date Time Temp Pulse Resp B/P (MAP) Pulse Ox O2 Delivery O2 Flow Rate FiO2 10/27/17 18:00 51 10/27/17 16:58 96 45 10/27/17 16:20 98 35 10/27/17 16:20 35 10/27/17 16:00 35 10/27/17 16:00 97.5 67 9 104/58 (73) 91 10/27/17 16:00 67 10/27/17 14:30 35 10/27/17 14:30 99 35 10/27/17 14:30 35 10/27/17 14:00 51 10/27/17 12:00 97.5 50 5 90/51 (64) 100 10/27/17 12:00 35 10/27/17 12:00 50 10/27/17 11:40 99 35 10/27/17 11:40 35 10/27/17 10:00 47 10/27/17 08:00 48 10/27/17 08:00 97.9 48 16 199/82 (121) 97 10/27/17 08:00 35 10/27/17 07:53 99 35 10/27/17 06:00 47 10/27/17 04:30 99 35 10/27/17 04:00 35 10/27/17 04:00 57 10/27/17 04:00 98.0 57 13 140/65 (90) 95 10/27/17 02:00 51 10/27/17 01:30 98 35 10/27/17 00:00 51 10/27/17 00:00 97.9 51 16 167/73 (104) 96 10/27/17 00:00 35 10/26/17 23:29 97 35 10/26/17 22:00 52 10/26/17 20:01 98 35 10/26/17 20:00 35 10/26/17 20:00 97.9 54 16 166/76 (106) 97 10/26/17 20:00 54 10/26/17 19:00 35 I/O 10/26/17 10/26/17 10/26/17 10/27/17 10/27/17 10/27/17 07:00 15:00 23:00 07:00 15:00 23:00 Intake Total 1086.4 ml 250 ml 435 ml 1052 ml 1110 ml 931 ml Output Total 1200 ml 1000 ml 1200 ml 0 ml 325 ml Balance -113.6 ml 250 ml -565 ml -148 ml 1110 ml 606 ml Intake Oral 0 ml IV Total 1086.4 ml 250 ml 345 ml 780 ml 1110 ml 400 ml Tube Feeding 122 ml 441 ml Tube Irrigant 90 ml 150 ml 90 ml Output Urine Total 1100 ml 850 ml 1200 ml 325 ml Gastric Drainage Total 100 ml 150 ml Tube Feeding Residual Discard 0 ml # Bowel Movements 0 0 0 Result Diagram: 10/27/1753910/27/17 05 Objective Remarks GENERAL: This elderly, averagely built, white male is in no acute distress. No cyanosis. There is no peripheral edema. No lymphadenopathy. HEENT: Head normocephalic. Pupils are reactive and equal. Tongue is moist. Nasal mucosa clear. NECK: No bruits. No venous distension . Trachea midline. CHEST: Equal movements with decreased breath sounds at bases and occ wheezes. HEART: Sounds were regular S1 and S2 with no murmur, no S3. ABDOMEN: Soft, protuberant without masses. No organomegaly or tenderness. Bowel sounds are active. EXTREMITIES: Decreased peripheral pulses and no edema. Reflexes are 1+. Neuro : He is sedated Assessment and Plan Assessment and Plan IMPRESSION: 1. Chronic obstructive pulmonary disease with acute exacerbation. 2. Dehydration and acute kidney injury. 3. History of hypertension. 4. Left basilar pneumonia. 5. Left lung atelectasis Plan : 1. Vent support and wean FIO2 and vent rates. 2. Continue antibiotics per Dr Orellana 3. Tube feeds at 50 CC 4. CPAP trial today and respiratory parameters. 5. Duoneb nebs qid. 6. Resume heparin 5000U BID 7. Mucomyst 10 % 2 CC qid. 8. CBC,BMP in am. 9. D/C Sedation Vaibhav Tubbs MD Oct 27, 2017 18:45
[2017-10-27] MEDS: POLYETHYLENE GLYCOL 17 GM PKG OG-TUBE SCH (20:36)
[2017-10-27] MEDS: traZODone HCL 100 MG TAB PO SCH (20:36)
[2017-10-27] MEDS: TAMSULOSIN HCL 0.4 MG CAP PO SCH (20:37)
[2017-10-28] VITALS (24 sets, daily range): BP systolic 108–150; BP diastolic 55–64; PULSE 50–117; RESP 8–17; TEMP 97.1–98.8; O2SAT 86–98
[2017-10-28] MEDS: MIDAZOLAM 100 MG/100 ML INJ 100 ML IV PRN (03:06)
[2017-10-28] MEDS: RESP: ALBUTEROL 2.5 MG/IPRATROPIUM 0.5 MG NEB (SCH) NEB ×6 (03:10→23:43)
[2017-10-28] MEDS: metroNIDAZOLE 500 MG TAB PO SCH ×4 (05:06→23:22)
[2017-10-28] MEDS: ARTIFICIAL TEARS OPTH SOLN 15 ML BTL EACH EYE SCH ×3 (05:07→22:12)
[2017-10-28] MEDS: methylPREDNISolone SOD SUCC 40 MG/1 ML VIAL IV PUSH SCH ×3 (05:07→22:12)
[2017-10-28] MEDS: fentaNYL DRIP 250 ML IV PRN (05:07)
[2017-10-28] MEDS: ISOSORBIDE DINITRATE 10 MG TAB PO SCH ×3 (05:09→22:00)
[2017-10-28] MEDS: hydrALAZINE HCL 25 MG TAB PO SCH ×3 (05:09→22:00)
[2017-10-28] MEDS: INSULIN NovoLIN REGULAR SUPPLEMENTAL SCALE SQ SCH ×4 (05:12→23:22)
--- NOTE | 2017-10-28 05:19 | RADRPT ---
EXAM DATE/TIME: 10/28/2017 03:59 [facility] COMPARISON: CHEST SINGLE AP, October 27, 2017, 3:53. INDICATIONS : Short of breath. MEDICAL HISTORY : Renal calculi. Chronic obstructive pulmonary disease. Renal cell carcinoma. SURGICAL HISTORY : Nephrectomy, left ENCOUNTER: Subsequent ACUITY: 1 week PAIN SCORE: 0/10 LOCATION: Bilateral chest FINDINGS: A single portable frontal view the chest shows a moderate size left pleural effusion and left lower l obe consolidation. This is stable. Right lung is clear. Heart is mildly enlarged. Tip of endotracheal tube approximately 3 cm proximal to the anshu. Tip of the NG tube in the region of the body of the stomach. CONCLUSION: Unchanged left effusion and left lower lobe infiltrate. Jose Roberto Benitez Jr., MD on October 28, 2017 at 5:17 Board Certified Radiologist. This report was verified electronically.
[2017-10-28] MEDS: RESP: BUDESONIDE 0.5 MG/2 ML NEB NEB SCH ×2 (07:45→20:40)
[2017-10-28] MEDS: CHLORHEXIDINE 0.12% (ORAL KIT) 15 ML CUP MT SCH ×2 (08:00→19:49)
[2017-10-28 08:49] LABS: BASOPHIL % 0.1 % (0.0-2.0); HEMATOCRIT 37.1 % (39.0-51.0); HEMOGLOBIN 12.7 GM/DL (13.0-17.0); LYMPH % 1.5 % (9.0-44.0); LYMPHOCYTE # 0.2 TH/MM3 (1.0-4.8); MEAN CELL VOLUME 101.7 FL (80.0-100.0); MEAN CORPUSCULAR HEMOGLOBIN 34.9 PG (27.0-34.0); MEAN CORPUSCULAR HGB CONC 34.3 % (32.0-36.0); MEAN PLATELET VOLUME 9.7 FL (7.0-11.0); MONO % 3.7 % (0.0-8.0); MONOCYTE # 0.4 TH/MM3 (0-0.9); NEUT % 94.7 % (16.0-70.0); PLATELET COUNT 146 TH/MM3 (150-450); RED BLOOD COUNT 3.65 MIL/MM3 (4.50-5.90); RED CELL DISTRIBUTION WIDTH 12.9 % (11.6-17.2); WHITE BLOOD COUNT 10.5 TH/MM3 (4.0-11.0)
[2017-10-28] MEDS: NICOTINE 21 MG/24 HR PATCH T-DERMAL SCH (09:00)
[2017-10-28] MEDS: METOPROLOL TARTRATE 25 MG TAB PO SCH ×2 (09:00→19:50)
[2017-10-28] MEDS: FINASTERIDE 5 MG TAB PO SCH (09:00)
[2017-10-28] MEDS: DOXAZOSIN MESYLATE 4 MG TAB PO SCH (09:00)
[2017-10-28] MEDS: REMOVE OLD PATCH T-DERMAL SCH (09:00)
[2017-10-28] MEDS: FLUTICASONE 200 MCG/VILANTEROL 25 MCG INHALER INH SCH (09:00)
[2017-10-28 09:32] LABS: ALKALINE PHOSPHATASE 46 U/L (45-117); ALT (GPT) 27 U/L (12-78); AST (GOT) 5 U/L (15-37); BICARBONATE 19.8 MEQ/L (21.0-32.0); BLOOD UREA NITROGEN 45 MG/DL (7-18); CALCIUM 8.2 MG/DL (8.5-10.1); CHLORIDE 111 MEQ/L (98-107); CREATININE 1.46 MG/DL (0.60-1.30); GLOMERULAR FILTRATION RATE 47 ML/MIN (>89); GLUCOSE,RANDOM 126 MG/DL (74-106); MAGNESIUM 2.6 MG/DL (1.5-2.5); PHOSPHORUS 4.2 MG/DL (2.5-4.9); SODIUM (NA) 141 MEQ/L (136-145); TOTAL BILIRUBIN ADULT 0.2 MG/DL (0.2-1.0); TOTAL PROTEIN 4.7 GM/DL (6.4-8.2)
--- NOTE | 2017-10-28 10:10 | HHI.NPPN ---
Subjective Complaints: Shortness of Breath General Problems: Edema, Hypertension Renal Failure: Chronic, Acute History of Present Illness Patient is a 72-year-old male presents to the emergency department by EMS transport from home s/p fall after getting out of bed and being to weak to get up. Patient states he has chronic COPD and this morning was getting up out of bed without his walker to go to the bathroom and noticed that when he stood up that both of his legs are weak causing him to fall to the floor. Denies any fevers, CP, nausea, vomiting or diarrhea. 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 Nephrology was consulted of hypocalcemia, electrolyte imbalance, and CKD, Was found to have a calcium level of 6.6, potassium level of 2.8, creatinine of 1.74 and GFR of 37 ml/min. Patient drinks 12 oz of 94 proof GIN daily. Additional Remarks Patient is sedated and intubated. Response to commands (Raysa Bhakta) Review of Systems General General Remarks Sedated and intubated (Raysa Bhakta) Objective Data Data Vital Signs Date Time Temp Pulse Resp B/P (MAP) Pulse Ox O2 Delivery O2 Flow Rate FiO2 10/28/17 07:46 98 35 10/28/17 06:00 64 10/28/17 04:04 98 35 10/28/17 04:00 97.1 52 16 108/57 (74) 97 10/28/17 04:00 35 10/28/17 04:00 52 10/28/17 02:00 50 10/28/17 00:53 98 35 10/28/17 00:00 35 10/28/17 00:00 97.9 55 16 120/55 (76) 97 10/28/17 00:00 55 10/27/17 22:00 54 10/27/17 22:00 59 10/27/17 20:00 35 10/27/17 20:00 59 10/27/17 20:00 97.2 59 17 108/53 (71) 97 10/27/17 19:42 99 35 10/27/17 18:00 51 10/27/17 16:58 96 45 3/13/18 16:20 98 35 10/27/17 16:20 35 10/27/17 16:00 35 10/27/17 16:00 97.5 67 9 104/58 (73) 91 10/27/17 16:00 67 10/27/17 14:30 35 10/27/17 14:30 99 35 10/27/17 14:30 35 10/27/17 14:00 51 10/27/17 12:00 97.5 50 5 90/51 (64) 100 10/27/17 12:00 35 10/27/17 12:00 50 10/27/17 11:40 99 35 10/27/17 11:40 35 (Raysa Bhakta) -: 10/28/17 0732 10/28/17 0732 Physical Exam General Appearance: No Acute Distress Appearance Remarks Intubated (Raysa Bhakta) Eyes Eye Exam: Pupils Equal (Raysa Bhakta) Pulmonary Resp Exam: Breath Sounds Equal, No Distress, Decreased Bases (Raysa Bhakta) Cardiology CV Exam: Regular (Raysa Bhakta) Gastrointestinal/Abdomen GI Exam: Soft, Non-Tender, Bowel Sounds Present (Raysa Bhakta) Genitourinary Exam: Flank Non-Tender (Raysa Bhakta) Integumentary Skin Exam: Clear, Warm Skin Remarks bruising present (Raysa Bhakta) Extremeties Extremities Exam: Trace Edema (Raysa Bhakta) Neurologic Neuro Exam: Sedated (Raysa Bhakta) Assessment/Plan Problem List: (1) Chronic renal disease ICD Codes: N18.9 - Chronic kidney disease Status: Chronic Plan: Patient with history of right partial nephrectomy for tumor. Most likely has CKD from HTN or renal vascular disease Patient has BERE, possibly pre renal or ATN. Proteinuria noted Plan Creatinine is stable Indwelling Muñoz catheter remains with good UOP Follow the urine out put and BMP. (2) Disorder of electrolytes ICD Codes: E87.8 - Other disorders of electrolyte and fluid balance, not elsewhere classified Status: Acute Plan: Calcium found to be at 6.6 and Potassium of 2.8 on admission Patient has received replacement and now WNL (3) COPD exacerbation ICD Codes: J44.1 - COPD exacerbation Status: Acute Plan: Continue O2 Mild SOB (4) Lactic acidosis ICD Codes: E87.2 - Acidosis Status: Acute Plan: Resolved (5) Hypertension ICD Codes: I10 - Essential (primary) hypertension Status: Chronic Plan: Well controlled (6) Weakness ICD Codes: R53.1 - Weakness Status: Acute Plan: Patient is very deconditioned and plan is for rehab (Raysa Bhakta) Problem List: (1) Chronic renal disease ICD Codes: N18.9 - Chronic kidney disease Status: Chronic Plan: Patient with history of right partial nephrectomy for tumor. Most likely has CKD from HTN or renal vascular disease Patient has BERE, possibly pre renal or ATN. Proteinuria noted Plan Creatinine is stable Indwelling Muñoz catheter remains with good UOP Follow the urine out put and BMP. Patient seen and examined, agree with above. Encourage oral intake. (2) Disorder of electrolytes ICD Codes: E87.8 - Other disorders of electrolyte and fluid balance, not elsewhere classified Status: Acute Plan: Calcium found to be at 6.6 and Potassium of 2.8 on admission Patient has received replacement and now WNL (3) COPD exacerbation ICD Codes: J44.1 - COPD exacerbation Status: Acute Plan: Continue O2 Mild SOB (4) Lactic acidosis ICD Codes: E87.2 - Acidosis Status: Acute Plan: Resolved (5) Hypertension ICD Codes: I10 - Essential (primary) hypertension Status: Chronic Plan: Well controlled (6) Weakness ICD Codes: R53.1 - Weakness Status: Acute Plan: Patient is very deconditioned and plan is for rehab (Roberto Benitez MD) Problem Qualifiers (1) Chronic renal disease: Qualified Codes: N18.3 - Chronic kidney disease, stage 3 (moderate) (2) Hypertension: Qualified Codes: I10 - Essential (primary) hypertension Raysa Bhakta Oct 28, 2017 10:10 Roberto Benitez MD Oct 28, 2017 22:02
[2017-10-28] MEDS: POLYETHYLENE GLYCOL 17 GM PKG OG-TUBE SCH ×2 (10:59→19:49)
[2017-10-28] MEDS: CEFEPIME INJ 1,000 MG in SODIUM CHLORIDE 0.9% INJ 100 ML IV SCH ×3 (11:00→23:22)
[2017-10-28] MEDS: DOCUSATE SODIUM 50 MG/SENNA 8.6 MG TAB PO SCH ×2 (11:03→19:50)
[2017-10-28] MEDS: MULTIVITAMIN TAB PO SCH (11:03)
[2017-10-28] MEDS: LANSOPRAZOLE SOLUTAB 30 MG TAB NG SCH (11:04)
[2017-10-28] MEDS: THIAMINE HCL 100 MG TAB PO SCH (11:04)
[2017-10-28] MEDS: CALCIUM CARBONATE 1.25 GM (CA 500 MG) TAB PO SCH ×2 (11:04→19:50)
[2017-10-28] MEDS: FOLIC ACID 1 MG TAB PO SCH (11:04)
[2017-10-28] MEDS: SODIUM CHLORIDE 0.9% FLUSH 10 ML FLUSH IV FLUSH SCH ×2 (11:05→19:49)
--- NOTE | 2017-10-28 13:40 | HHI.CCPN ---
Subjective Remarks/Hospital Course The patient is a 72 year old male with past medical history of hypertension, COPD, Active tobacco use, renal CA. Who presented to [facility] ED , status post fall. He denies any chest pain, however, he reports some shortness of breath with wheezing, the patient denies any cough or any constitutional symptoms. He also reports swelling in his right lower extremity for the past two months. The patient denies any use of oxygen at home however, he uses Combivent and Breo. When paramedics arrived the patient was short of breath and he required three up draft treatments for expiratory wheezing, in addition, he received a dose of Eqjs-Ygkouo-Yaztpl Medrol. The patient denies any nausea, vomiting or any abdominal pain. His initial laboratory data showed acute kidney injury with a creatinine level of 1.82 and lactic acid level of 4.4. Chest x-ray in the ED showed persistent left lung airspace disease, likely atelectasis and scarring , otherwise no acute abnormality or any significant interval change. Ultrasound of the right lower extremity was preformed which showed no evidence of any DVT. The patient is being admitted to Dr. Barrett 's service. 10/25: Reconsult secondary to worsening hypoxia on BiPAP. Status post bronchoscopy 10/22 currently only growing rare budding yeast. Will require intubation will contact loren wilson 10/26: Appears comfortable on ventilator. Hemodynamically stable. Requiring propofol and fentanyl drips for sedation. 10/27: Afebrile. FiO2 down to 35%. Bradycardic on propofol. Patient is also on clonidine and metoprolol tartrate will titrate down increase other antihypertensives that do not cause bradycardia. Tolerating tube feeding. No bowel movement 48 hours. Subjective 10/28: Afebrile. FiO2 down to 35%. Tube feeds currently off. Discussed with Dr. uTbbs.. Will attempt extubation today. No bowel movement 72 hours. Objective Vital Signs Date Time Temp Pulse Resp B/P (MAP) Pulse Ox O2 Delivery O2 Flow Rate FiO2 10/28/17 12:00 98.5 55 17 121/61 (81) 86 10/28/17 12:00 35 10/25/17 09:30 Nasal Cannula 5.00 Intake and Output 10/28/17 10/28/17 10/29/17 08:00 16:00 00:00 Intake Total 625 ml Output Total 325 ml Balance 300 ml Result Diagram: 10/28/17 0732 10/28/17 0732 Other Results Microbiology Date/Time Source Procedure Growth Status 10/25/17 18:50 Blood Peripheral Aerobic Blood Culture - Preliminary NO GROWTH IN 3 DAYS Resulted 10/25/17 18:50 Blood Peripheral Anaerobic Blood Culture - Preliminary NO GROWTH IN 3 DAYS Resulted 10/22/17 11:35 Bronchial Washings Bronchial Fungal Smear - Final RARE BUDDING YEAST CELLS Resulted 10/22/17 11:35 Bronchial Washings Bronchial Fungal Culture - Preliminary Resulted Imaging Last Impressions Chest X-Ray 10/28/17 0600 Signed Impressions: Service Date/Time: Saturday, October 28, 2017 03:59 - CONCLUSION: Unchanged left effusion and left lower lobe infiltrate. Jose Roberto Benitez Jr., MD Renal Ultrasound 10/25/17 0000 Signed Impressions: Service Date/Time: Wednesday, October 25, 2017 16:26 - CONCLUSION: 1. Echogenic kidneys characteristic of medical renal disease. No hydronephrosis. Small renal cysts. Prostatic enlargement. Ole Eckert MD Chest CT 10/13/17 1313 Signed Impressions: Service Date/Time: Friday, October 13, 2017 15:15 - CONCLUSION: 1. Left upper lobe and left lower lobe consolidation likely infiltrate. Recommend treatment and followup to resolution. 2. Mild emphysema without mass or concerning nodule. 3. Minimal coronary artery calcifications. Allen Alexander MD Lower Extremity Ultrasound 10/13/17 0000 Signed Impressions: Service Date/Time: Friday, October 13, 2017 04:08 - CONCLUSION: 1. No sonographic evidence for right lower extremity DVT. Pedro Bunn MD Ankle X-Ray 10/13/17 0000 Signed Impressions: Service Date/Time: Friday, October 13, 2017 03:58 - CONCLUSION: 1. Diffuse soft tissue swelling without radiopaque foreign bodies, acute fracture or bony erosion. Pedro Bunn MD Objective Remarks GENERAL: This is a 72-year-old male resting in bed orotracheally intubated SKIN: Warm and dry. HEAD: Atraumatic. Normocephalic. EYES: Pupils equal and round. No scleral icterus. No injection or drainage. ENT: No nasal bleeding or discharge. Mucous membranes pink and moist. NECK: Trachea midline. No JVD. CARDIOVASCULAR: Regular rate and rhythm. S1, S2 no S4. RESPIRATORY: Diminished breath sounds in the bases bilaterally. No wheezing. GASTROINTESTINAL: Abdomen soft, non-tender, nondistended. Hepatic and splenic margins not palpable. MUSCULOSKELETAL: Extremities without significant peripheral edema. No obvious deformities. NEUROLOGICAL: Positive gag. Positive corneal reflex. Withdraws to pain in all 4 extremities. Urinary Catheter: Yes Assessment to: Continue Muñoz insert reason: Prolonged Immobilization Vascular Central Line Catheter: No Assessment to: Continue A/P Assessment and Plan Neuro/Psych: EtOH -12 ounces of gin daily Peripheral neuropathy Depression Currently on propofol at 50 mcg/kg/min/fentanyl drips at 100 mcg an hour for sedation/analgesia while intubated Switched to midazolam Goal of RASS -2 Daily sedation vacation Discontinue CIWA protocol while intubated Thiamine, multivitamin and folic acid daily Continue trazodone 100 mg at night/home medication CV: Hypertension Dyslipidemia Previously on metoprolol 25 mg twice daily, amlodipine 10 mg daily, Catapres 0.1 mg every 8 hours and lisinopril 5 mg daily. Also on doxazosin 8 mg p.o. daily Hold lisinopril with acute kidney injury Restart amlodipine at 10 mg daily. Also decrease clonidine 0.1 twice daily with bradycardia Noted home medication metoprolol 12.5 mg twice daily at home. Currently on 12.5 mg p.o. twice daily Currently normal saline at 83 cc an hour. Switch to free water 200 cc every 4 hours Resp: Acute hypoxemic respiratory failure COPD with ongoing tobaccoism Hypertension Hyperlipidemia PRVC 16/500///35 PSVT trial 05/21 at 35% Ventilator bundle Albuterol/ipratropium aerosols every 4 hours with albuterol aerosols every 2 hours as needed dyspnea Continue budesonide 0.5/2 1 inhalation twice daily On fluticasone/Vilanterol 200/25 daily at home Follow-up chest x-ray in a.m. 10/29 GI: Gastroesophageal reflux disease Hypoalbuminemia Continue tube feedings with Nepro goal 40 cc an hour per nutrition's recommendations Lansoprazole 30 mg daily for GI prophylaxis Docusate sodium/senna 1 tablet twice daily for bowel regimen. Add polyethylene glycol 17 g daily : BPH History of bladder outlet obstruction Continue Muñoz catheter Holding tamsulosin 0.4 mg daily and finasteride 5 mg daily as unable to pass down tube Endo: Sliding scale insulin with Accu-Cheks to maintain euglycemia/every 6 hours Novolin R medium protocol Renal: Acute renal insufficiency History of right renal carcinoma status post right partial nephrectomy/ nephrostomy tube placement as well Partial obstructing right renal calculus Left renal cyst Creatinine baseline within normal limits Essentially no new finding renal ultrasound repeated 10/25. Medical renal disease, left cyst. Urine electrolytes and eosinophils Renal ultrasound 10/13 with left renal cyst, partially obstructing right renal calculus Avoid nephrotoxic drugs Heme: Macrocytic anemia Thrombocytopenia Monitor CBC daily. Follow trends ID: Placed on cefepime 2 g every 12 hours and metronidazole 500 mg every 6 hours Fluconazole 100 mg daily Pertinent cultures 10/25 -blood cultures 2 no growth 10/22 -bronc -rare budding yeast 10/13 -blood cultures 2 -no growth to date MSK: PT evaluate and treat FEN: Hypermagnesia Replace electrolytes as clinically indicated Access -Utilize peripheral IV. Central line if indicated Prophylaxis -GI lansoprazole -DVT -SCD/heparin subcu Level 3 follow-up Grant Orellana MD Oct 28, 2017 13:40
[2017-10-28] MEDS ORDERED: GLYCERIN ADULT 2 GM SUPP RECTAL ONE (13:45)
[2017-10-28] MEDS ORDERED: METHYLNALTREXONE BROMIDE 12 MG/0.6 ML VIAL SQ ONE (13:45)
[2017-10-28] MEDS: FREE WATER G-TUBE SCH ×3 (16:00→23:22)
[2017-10-28] MEDS: FLUCONAZOLE 100 MG PREMIX BAG 50 ML IV SCH (17:00)
--- NOTE | 2017-10-28 17:40 | HHI.PR ---
Subjective Remarks Remains on vent support FIo2 40 %. Has been off sedation and restless. Doing CPAP trial today. Chest X ray shows Basal infiltrates. Objective Vital Signs Date Time Temp Pulse Resp B/P (MAP) Pulse Ox O2 Delivery O2 Flow Rate FiO2 10/28/17 16:00 98.1 79 8 117/59 (78) 97 10/28/17 16:00 79 10/28/17 15:00 77 10/28/17 14:12 96 Nasal Cannula 4 10/28/17 14:00 117 10/28/17 13:00 63 10/28/17 12:00 98.5 55 17 121/61 (81) 86 10/28/17 12:00 55 10/28/17 12:00 35 10/28/17 11:33 98 35 10/28/17 11:00 59 10/28/17 10:00 58 10/28/17 09:00 61 10/28/17 08:00 54 10/28/17 08:00 35 10/28/17 08:00 98.8 54 16 111/56 (74) 97 10/28/17 07:46 98 35 10/28/17 07:00 52 10/28/17 06:00 64 10/28/17 04:04 98 35 10/28/17 04:00 97.1 52 16 108/57 (74) 97 10/28/17 04:00 35 10/28/17 04:00 52 10/28/17 02:00 50 10/28/17 00:53 98 35 10/28/17 00:00 35 10/28/17 00:00 97.9 55 16 120/55 (76) 97 10/28/17 00:00 55 10/27/17 22:00 54 10/27/17 22:00 59 10/27/17 20:00 35 10/27/17 20:00 59 10/27/17 20:00 97.2 59 17 108/53 (71) 97 10/27/17 19:42 99 35 10/27/17 18:00 51 I/O 10/27/17 10/27/17 10/27/17 10/28/17 10/28/17 10/28/17 07:00 15:00 23:00 07:00 15:00 23:00 Intake Total 1052 ml 1110 ml 931 ml 625 ml Output Total 1200 ml 0 ml 325.0 ml 325 ml Balance -148 ml 1110 ml 606.0 ml 300 ml Intake Oral 0 ml IV Total 780 ml 1110 ml 400 ml 100 ml Tube Feeding 122 ml 441 ml 525 ml Tube Irrigant 150 ml 90 ml Output Urine Total 1200 ml 325 ml 325 ml Tube Feeding Residual Discard 0 ml 0 ml # Bowel Movements 0 0 Result Diagram: 10/28/17 0732 10/28/17 0732 Objective Remarks GENERAL: This elderly, averagely built, white male is in no acute distress. No cyanosis. There is no peripheral edema. No lymphadenopathy. HEENT: Head normocephalic. Pupils are reactive and equal. Tongue is moist. Nasal mucosa clear. NECK: No bruits. No venous distension . Trachea midline. CHEST: Equal movements with decreased breath sounds at bases and occ crackles and wheezes. HEART: Sounds were regular S1 and S2 with no murmur, no S3. ABDOMEN: Soft, protuberant without masses. No organomegaly or tenderness. Bowel sounds are active. EXTREMITIES: Decreased peripheral pulses and no edema. Reflexes are 1+. Neuro : Awake and restless. Assessment and Plan Assessment and Plan IMPRESSION: 1. Chronic obstructive pulmonary disease with acute exacerbation. 2. Dehydration and acute kidney injury. 3. History of hypertension. 4. Left basilar pneumonia. 5. Left lung atelectasis Plan : 1. To CPAP today and FIo2 35 % 2. Continue antibiotics per Dr Orellana 3. Tube feeds at 50 CC 4. Check respiratory parameters. 5. Duoneb nebs qid. 6. Resume heparin 5000U BID 7. Mucomyst 10 % 2 CC qid. 8. Extubate if meets criteria 9. Use BIPAP at HS and PRN Vaibhav Tubbs MD Oct 28, 2017 17:40
[2017-10-28] MEDS: LACTULOSE SYRUP 20 GM/30 ML CUP PO SCH ×2 (18:13→19:50)
[2017-10-28] MEDS: cloNIDine HCL 0.1 MG TAB PO SCH (19:48)
[2017-10-28] MEDS: traZODone HCL 100 MG TAB PO SCH (19:49)
[2017-10-28] MEDS: TAMSULOSIN HCL 0.4 MG CAP PO SCH (19:50)
[2017-10-29] VITALS (20 sets, daily range): BP systolic 123–166; BP diastolic 57–99; PULSE 75–104; RESP 14–37; TEMP 97.6–98.4; O2SAT 95–99
[2017-10-29] MEDS: RESP: ALBUTEROL 2.5 MG/IPRATROPIUM 0.5 MG NEB (SCH) NEB ×4 (03:34→14:55)
[2017-10-29] MEDS: CHLORHEXIDINE GLUCONATE 2 % 1 PACK (2 CLOTHS)(taper/protocol) TOPICAL SCH (03:58)
[2017-10-29] MEDS: FREE WATER G-TUBE SCH (03:59)
--- NOTE | 2017-10-29 04:00 | RADRPT ---
EXAM DATE/TIME: 10/29/2017 02:24 [facility] COMPARISON: CHEST SINGLE AP, October 28, 2017, 3:59. INDICATIONS : Shortness of breath, possible pulmonary disease. MEDICAL HISTORY : Renal calculi. Chronic obstructive pulmonary disease. Renal cell carcinoma SURGICAL HISTORY : Nephrectomy, left. ENCOUNTER: Subsequent ACUITY: 1 week PAIN SCORE: Non-responsive. LOCATION: Bilateral chest FINDINGS: A single portable frontal view of the chest shows a moderate-sized left pleural effusion with left lo wer lobe consolidation. The appearance is stable. Right lung is clear. Heart is normal in size. Degen erative thoracic spine. CONCLUSION: Unchanged left effusion and left lower lobe infiltrate. Jose Roberto Benitez Jr., MD on October 29, 2017 at 3:58 Board Certified Radiologist. This report was verified electronically.
[2017-10-29] MEDS: ARTIFICIAL TEARS OPTH SOLN 15 ML BTL EACH EYE SCH ×3 (05:37→21:56)
[2017-10-29] MEDS: methylPREDNISolone SOD SUCC 40 MG/1 ML VIAL IV PUSH SCH ×3 (05:37→21:56)
[2017-10-29] MEDS: INSULIN NovoLIN REGULAR SUPPLEMENTAL SCALE SQ SCH ×3 (05:37→18:00)
[2017-10-29] MEDS: hydrALAZINE HCL 25 MG TAB PO SCH ×3 (05:37→21:56)
[2017-10-29] MEDS: ISOSORBIDE DINITRATE 10 MG TAB PO SCH ×3 (05:37→21:56)
[2017-10-29] MEDS: metroNIDAZOLE 500 MG TAB PO SCH ×3 (05:37→18:58)
[2017-10-29 05:52] LABS: AUTOMATED NEUTROPHIL # 10.2 TH/MM3 (1.8-7.7); BASOPHIL % 0.1 % (0.0-2.0); HEMATOCRIT 39.7 % (39.0-51.0); HEMOGLOBIN 13.8 GM/DL (13.0-17.0); LYMPH % 1.5 % (9.0-44.0); LYMPHOCYTE # 0.2 TH/MM3 (1.0-4.8); MEAN CELL VOLUME 101.2 FL (80.0-100.0); MEAN CORPUSCULAR HEMOGLOBIN 35.1 PG (27.0-34.0); MEAN CORPUSCULAR HGB CONC 34.7 % (32.0-36.0); MEAN PLATELET VOLUME 9.4 FL (7.0-11.0); MONO % 3.6 % (0.0-8.0); MONOCYTE # 0.4 TH/MM3 (0-0.9); NEUT % 94.8 % (16.0-70.0); PLATELET COUNT 130 TH/MM3 (150-450); RED BLOOD COUNT 3.92 MIL/MM3 (4.50-5.90); WHITE BLOOD COUNT 10.7 TH/MM3 (4.0-11.0)
[2017-10-29 06:25] LABS: ALBUMIN 2.5 GM/DL (3.4-5.0); CALCIUM 8.3 MG/DL (8.5-10.1); CREATININE 1.47 MG/DL (0.60-1.30); DIRECT BILIRUBIN ADULT 0.1 MG/DL (0.0-0.2); MAGNESIUM 2.7 MG/DL (1.5-2.5)
[2017-10-29 06:30] LABS: INDIRECT BILIRUBIN 0.2 MG/DL (0.0-0.8); PHOSPHORUS 3.6 MG/DL (2.5-4.9); TOTAL BILIRUBIN ADULT 0.3 MG/DL (0.2-1.0); TOTAL PROTEIN 5.4 GM/DL (6.4-8.2)
[2017-10-29] MEDS: RESP: BUDESONIDE 0.5 MG/2 ML NEB NEB SCH ×2 (07:29→20:00)
--- NOTE | 2017-10-29 07:29 | HHI.PR ---
Subjective Remarks extubated, on VM. C/O of not being able to hear Objective Vital Signs Date Time Temp Pulse Resp B/P (MAP) Pulse Ox O2 Delivery O2 Flow Rate FiO2 10/29/17 06:00 80 10/29/17 04:00 90 10/29/17 04:00 98.2 79 25 143/67 (92) 98 10/29/17 02:00 94 10/29/17 00:00 98.0 104 14 165/70 (101) 98 10/29/17 00:00 104 10/28/17 22:00 105 10/28/17 20:41 95 Nasal Cannula 4.00 10/28/17 20:00 111 10/28/17 20:00 97.6 111 13 150/64 (92) 95 10/28/17 18:00 93 10/28/17 17:00 98 10/28/17 16:00 98.1 79 8 117/59 (78) 97 10/28/17 16:00 79 10/28/17 15:00 77 10/28/17 14:12 96 Nasal Cannula 4 10/28/17 14:00 117 10/28/17 13:00 63 10/28/17 12:00 98.5 55 17 121/61 (81) 86 10/28/17 12:00 55 10/28/17 12:00 35 10/28/17 11:33 98 35 10/28/17 11:00 59 10/28/17 10:00 58 10/28/17 09:00 61 10/28/17 08:00 54 10/28/17 08:00 35 10/28/17 08:00 98.8 54 16 111/56 (74) 97 10/28/17 07:46 98 35 I/O 10/28/17 10/28/17 10/28/17 10/29/17 10/29/17 10/29/17 07:00 15:00 23:00 07:00 15:00 23:00 Intake Total 625 ml 369 ml 1300 ml 100 ml Output Total 325 ml 400 ml 450 ml Balance 300 ml 369 ml 900 ml -350 ml Intake Oral 0 ml 150 ml 100 ml IV Total 100 ml 369 ml 1150 ml Tube Feeding 525 ml Output Urine Total 325 ml 400 ml 450 ml # Bowel Movements 0 0 Result Diagram: 10/29/17 0505 10/29/17 0505 Imaging Last 72 hours Impressions Chest X-Ray 10/29/17599 Signed Impressions: Service Date/Time: October 02:24 - CONCLUSION: Unchanged left effusion and left lower lobe infiltrate. Jose Roberto Benitez Jr., MD Chest X-Ray 10/28/17599 Signed Impressions: Service Date/Time: Saturday, October 28, 2017 03:59 - CONCLUSION: Unchanged left effusion and left lower lobe infiltrate. Jose Roberto Benitez Jr., MD Chest X-Ray 10/27/17599 Signed Impressions: Service Date/Time: Friday, October 27, 2017 03:53 - CONCLUSION: 1. Resolution of the right effusion and infiltrate. 2. Unchanged left effusion and infiltrate. Jose Roberto Benitez Jr., MD Objective Remarks GENERAL: This is a well-nourished, elderly male on venti mask SKIN: No rashes, ecchymotic area to B/L UE HEAD: Atraumatic. Normocephalic. No temporal or scalp tenderness. EYES: Pupils equal round and reactive. Extraocular motions intact. No scleral icterus. No injection or drainage. ENT: Nose without bleeding, purulent drainage NECK: Trachea midline. No JVD CARDIOVASCULAR: Regular rate and rhythm without murmurs, gallops, or rubs. RESPIRATORY: Equal B/l, clear GASTROINTESTINAL: Abdomen soft, non-tender, nondistended. MUSCULOSKELETAL: trace edema NEUROLOGICAL: alert oriented, no distress Medications and IVs Current Medications Medications (Trade) Dose Ordered Sig/Nayeli Route Start Time Stop Time Status Last Admin (Cardura) 8 mg DAILY PO 10/13/17 09:00 10/27/17 07:36 (Proscar) 5 mg DAILY PO 10/13/17 09:00 10/27/17 07:36 (Breo Ellipta 200-25 Inh) 1 puff DAILY INH 10/13/17 09:00 10/27/17 07:38 (Flomax) 0.4 mg HS PO 10/13/17 21:00 10/26/17 21:13 (Desyrel) 100 mg HS PO 10/13/17 21:00 10/28/17 19:49 (NS Flush) 2 ml UNSCH PRN IV FLUSH 10/13/17 06:00 (NS Flush) 2 ml BID IV FLUSH 10/13/17 09:00 10/28/17 19:49 (Narcan Inj) 0.4 mg UNSCH PRN IV PUSH 10/13/17 06:00 (Oscal) 500 mg Q12HR PO 10/13/17 09:00 10/28/17 19:50 (Pill Splitter) 1 ea UNSCH PRN OTHER 10/13/17 06:15 (Symbicort 160-4.5 Mcg Inh) 2 puff Q12HR INH 10/13/17 21:00 Future Hold 10/27/17 07:38 (Habitrol 21 Mg Patch.24 Hr) 1 patch DAILY T-DERMAL 10/15/17 09:00 10/28/17 09:00 Miscellaneous Information 1 DAILY T-DERMAL 10/15/17 09:00 10/28/17 09:00 (Lopressor) 25 mg BID PO 10/14/17 21:00 10/28/17 19:50 (Romazicon Inj) 0.2 mg Q1M PRN IV PUSH 10/15/17 10:00 (Ceftin) 500 mg Q12HR PO 10/23/17 21:00 Future Hold 10/25/17 08:21 (Duoneb Neb) 1 ampule Q4HR NEB NEB 10/25/17 16:00 10/29/17 03:34 (SoluMEDROL INJ) 40 mg Q8HR IV PUSH 10/25/17 12:15 10/29/17 05:37 (Peridex 0.12% Liq) 15 ml BID@08,20 MT 10/25/17 20:00 10/28/17 08:00 (Tears Naturale Opth Soln) 1 drop Q8HR EACH EYE 10/25/17 22:00 10/29/17 05:37 (Prevacid Odt) 30 mg DAILY NG 10/26/17 09:00 10/28/17 11:04 Cefepime HCl 1000 mg/Sodium Chloride 100 ml @ 200 mls/hr Q8H IV 10/25/17 16:00 10/28/17 23:22 (Flagyl) 500 mg Q6HR PO 10/25/17 18:00 10/29/17 05:37 Fluconazole/ Sodium Chloride 50 ml @ 50 mls/hr Q24H IV 10/25/17 17:00 10/28/17 17:00 (Albuterol Neb) 2.5 mg Q2HR NEB PRN NEB 10/25/17 16:15 (Elvie-Colace) 1 tab BID PO 10/25/17 21:00 10/28/17 19:50 (Pulmicort Respule Neb) 0.5 mg Q12HR NEB NEB 10/25/17 20:00 10/28/17 20:40 (D50w (Vial) Inj) 50 ml UNSCH PRN IV PUSH 10/25/17 17:00 (Glucagon Inj) 1 mg UNSCH PRN OTHER 10/25/17 17:00 (NovoLIN R SUPPLEMENTAL SCALE) 1 Q6HR SQ 10/25/17 18:00 10/27/17 23:54 (Vitamin B1) 100 mg DAILY PO 10/26/17 09:00 10/28/17 11:04 (Folate) 1 mg DAILY PO 10/26/17 09:00 10/28/17 11:04 (Theragran) 1 tab DAILY PO 10/26/17 09:00 10/28/17 11:03 Miscellaneous Information Patient in critical care unit? Ass... Q361D .XX 10/25/17 22:00 10/25/17 22:00 (Chlorhexidine 2% Cloth) 3 pack DAILY@04 TOPICAL 10/26/17 04:00 10/30/17 04:01 10/29/17 03:58 (Chlorhexidine 2% Cloth) 3 pack UNSCH PRN TOPICAL 10/25/17 22:00 10/30/17 21:55 (Tylenol 650 Mg/ 20 ml Liq) 650 mg Q6H PRN PO 10/26/17 12:45 (Apresoline) 10 mg Q1H PRN PO 10/26/17 18:15 10/27/17 08:16 (Trandate Inj) 10 mg Q1H PRN IV PUSH 10/26/17 18:15 (Nitroglycerin 2% Oint) 2 inch Q6HR PRN TOPICAL 10/26/17 18:15 10/27/17 08:16 (Norvasc) 10 mg DAILY PO 10/27/17 09:00 10/27/17 10:43 (Apresoline) 25 mg Q8HR PO 10/27/17 14:00 10/29/17 05:37 (Isordil) 10 mg Q8HR PO 10/27/17 08:15 10/27/17 10:43 (Catapres) 0.1 mg BID PO 10/27/17 21:00 (Miralax) 17 gm BID OG-TUBE 10/27/17 21:00 10/28/17 19:49 (Lactulose Liq) 30 ml QID PO 10/28/17 18:00 10/28/17 19:50 (Free Water) VOLUME: 200 ML Q4HR G-TUBE 10/28/17 16:00 Assessment and Plan Problem List: (1) Respiratory failure ICD Codes: J96.90 - Respiratory failure, unspecified, unspecified whether with hypoxia or hypercapnia Plan: Extubated, sat's maintained o Vent mask Weave Defect Charting Clerk following (2) Left lower lobe pneumonia ICD Codes: J18.1 - Lobar pneumonia, unspecified organism Status: Acute Plan: pulmonary following, Cefepime, Flagyl (3) COPD exacerbation ICD Codes: J44.1 - COPD exacerbation Status: Acute Plan: Followed by pulmonary Bronchodilators, Solu-medrol (4) Chronic renal disease ICD Codes: N18.9 - Chronic kidney disease Status: Chronic Plan: Renal following, History of nephrectomy r/t carcinoma. Avoid nephro toxins (5) Hypertension ICD Codes: I10 - Essential (primary) hypertension Status: Chronic Plan: On multiple agents. Under better control cont to monitor (6) Alcohol abuse ICD Codes: F10.10 - Alcohol abuse Status: Chronic Plan: CIWA protocol (7) Weakness ICD Codes: R53.1 - Weakness Status: Acute Plan: will need snf/rehab at [place] Assessment and Plan In bed no apparent distress, Voices he is UPPER [place]AGIT since coming off vent, believe it is medicated related. Sat's are maintained on Vent mask, look to Dc upcoming days if cont to improve. He is accepted at [facility]. Problem Qualifiers (1) Left lower lobe pneumonia: Qualified Codes: J69.0 - Pneumonitis due to inhalation of food and vomit (2) Chronic renal disease: Qualified Codes: N18.3 - Chronic kidney disease, stage 3 (moderate) (3) Hypertension: Qualified Codes: I10 - Essential (primary) hypertension Sulma Macias Oct 29, 2017 07:29
--- NOTE | 2017-10-29 07:33 | HHI.CCPN ---
Subjective Remarks/Hospital Course The patient is a 72 year old male with past medical history of hypertension, COPD, Active tobacco use, renal CA. Who presented to [facility] ED , status post fall. He denies any chest pain, however, he reports some shortness of breath with wheezing, the patient denies any cough or any constitutional symptoms. He also reports swelling in his right lower extremity for the past two months. The patient denies any use of oxygen at home however, he uses Combivent and Breo. When paramedics arrived the patient was short of breath and he required three up draft treatments for expiratory wheezing, in addition, he received a dose of Sjac-Dhybft-Xveale Medrol. The patient denies any nausea, vomiting or any abdominal pain. His initial laboratory data showed acute kidney injury with a creatinine level of 1.82 and lactic acid level of 4.4. Chest x-ray in the ED showed persistent left lung airspace disease, likely atelectasis and scarring , otherwise no acute abnormality or any significant interval change. Ultrasound of the right lower extremity was preformed which showed no evidence of any DVT. The patient is being admitted to Dr. Barrett 's service. 10/25: Reconsult secondary to worsening hypoxia on BiPAP. Status post bronchoscopy 10/22 currently only growing rare budding yeast. Will require intubation will contact son Eyal prior 10/26: Appears comfortable on ventilator. Hemodynamically stable. Requiring propofol and fentanyl drips for sedation. 10/27: Afebrile. FiO2 down to 35%. Bradycardic on propofol. Patient is also on clonidine and metoprolol tartrate will titrate down increase other antihypertensives that do not cause bradycardia. Tolerating tube feeding. No bowel movement 48 hours. Subjective 10/28: Afebrile. FiO2 down to 35%. Tube feeds currently off. Discussed with Dr. Tubbs.. Will attempt extubation today. No bowel movement 72 hours. 10/29 No events overnight. s/p extubation yesterday on 4L oxygen with good sats. Afebrile. Objective Vital Signs Date Time Temp Pulse Resp B/P (MAP) Pulse Ox O2 Delivery O2 Flow Rate FiO2 10/29/17 06:00 80 10/29/17 04:00 98.2 25 143/67 (92) 98 10/28/17 20:41 Nasal Cannula 4.00 10/28/17 12:00 35 Intake and Output 10/29/17 10/29/17 10/30/17 08:00 16:00 00:00 Intake Total 100 ml Output Total 450 ml Balance -350 ml Result Diagram: 10/29/17 0505 10/29/17 0505 Other Results Laboratory Tests Test 10/28/17 07:32 10/29/17 05:05 White Blood Count 10.5 TH/MM3 10.7 TH/MM3 Red Blood Count 3.65 MIL/MM3 3.92 MIL/MM3 Hemoglobin 12.7 GM/DL 13.8 GM/DL Hematocrit 37.1 % 39.7 % Mean Corpuscular Volume 101.7 FL 101.2 FL Mean Corpuscular Hemoglobin 34.9 PG 35.1 PG Mean Corpuscular Hemoglobin Concent 34.3 % 34.7 % Red Cell Distribution Width 12.9 % 13.0 % Platelet Count 146 TH/MM3 130 TH/MM3 Mean Platelet Volume 9.7 FL 9.4 FL Neutrophils (%) (Auto) 94.7 % 94.8 % Lymphocytes (%) (Auto) 1.5 % 1.5 % Monocytes (%) (Auto) 3.7 % 3.6 % Eosinophils (%) (Auto) 0.0 % 0.0 % Basophils (%) (Auto) 0.1 % 0.1 % Neutrophils # (Auto) 10.0 TH/MM3 10.2 TH/MM3 Lymphocytes # (Auto) 0.2 TH/MM3 0.2 TH/MM3 Monocytes # (Auto) 0.4 TH/MM3 0.4 TH/MM3 Eosinophils # (Auto) 0.0 TH/MM3 0.0 TH/MM3 Basophils # (Auto) 0.0 TH/MM3 0.0 TH/MM3 CBC Comment DIFF FINAL DIFF FINAL Differential Comment Blood Urea Nitrogen 45 MG/DL 48 MG/DL Creatinine 1.46 MG/DL 1.47 MG/DL Random Glucose 126 MG/DL 134 MG/DL Total Protein 4.7 GM/DL 5.4 GM/DL Albumin 2.0 GM/DL 2.5 GM/DL Calcium Level 8.2 MG/DL 8.3 MG/DL Phosphorus Level 4.2 MG/DL 3.6 MG/DL Magnesium Level 2.6 MG/DL 2.7 MG/DL Alkaline Phosphatase 46 U/L 59 U/L Aspartate Amino Transf (AST/SGOT) 5 U/L 23 U/L Alanine Aminotransferase (ALT/SGPT) 27 U/L 43 U/L Total Bilirubin 0.2 MG/DL 0.3 MG/DL Sodium Level 141 MEQ/L 144 MEQ/L Potassium Level 4.2 MEQ/L 4.4 MEQ/L Chloride Level 111 MEQ/L 112 MEQ/L Carbon Dioxide Level 19.8 MEQ/L 22.0 MEQ/L Anion Gap 10 MEQ/L 10 MEQ/L Estimat Glomerular Filtration Rate 47 ML/MIN 47 ML/MIN Direct Bilirubin 0.1 MG/DL Indirect Bilirubin 0.2 MG/DL Lipase 92 U/L Imaging Last Impressions Chest X-Ray 10/29/17 0600 Signed Impressions: Service Date/Time: October 02:24 - CONCLUSION: Unchanged left effusion and left lower lobe infiltrate. Jose Roberto Benitez Jr., MD Renal Ultrasound 10/25/17 0000 Signed Impressions: Service Date/Time: Wednesday, October 25, 2017 16:26 - CONCLUSION: 1. Echogenic kidneys characteristic of medical renal disease. No hydronephrosis. Small renal cysts. Prostatic enlargement. Ole Eckert MD Chest CT 10/13/17 1313 Signed Impressions: Service Date/Time: Friday, October 13, 2017 15:15 - CONCLUSION: 1. Left upper lobe and left lower lobe consolidation likely infiltrate. Recommend treatment and followup to resolution. 2. Mild emphysema without mass or concerning nodule. 3. Minimal coronary artery calcifications. Allen Alexander MD Lower Extremity Ultrasound 10/13/17 0000 Signed Impressions: Service Date/Time: Friday, October 13, 2017 04:08 - CONCLUSION: 1. No sonographic evidence for right lower extremity DVT. Pedro Bunn MD Ankle X-Ray 10/13/17 0000 Signed Impressions: Service Date/Time: Friday, October 13, 2017 03:58 - CONCLUSION: 1. Diffuse soft tissue swelling without radiopaque foreign bodies, acute fracture or bony erosion. Pedro Bunn MD Objective Remarks GENERAL: This is a 72-year-old male resting in bed in no acute resp distress SKIN: Warm and dry. HEAD: Atraumatic. Normocephalic. EYES: Pupils equal and round. No scleral icterus. No injection or drainage. ENT: No nasal bleeding or discharge. Mucous membranes pink and moist. NECK: Trachea midline. No JVD. CARDIOVASCULAR: Regular rate and rhythm. S1, S2 no S4. RESPIRATORY: Diminished breath sounds in the bases bilaterally. No wheezing. GASTROINTESTINAL: Abdomen soft, non-tender, nondistended. Hepatic and splenic margins not palpable. MUSCULOSKELETAL: Extremities without significant peripheral edema. No obvious deformities. NEUROLOGICAL: Awake and alert A/P Assessment and Plan Neuro/Psych: EtOH -12 ounces of gin daily Peripheral neuropathy Depression Awake and alert, avoid sedatives Thiamine, multivitamin and folic acid daily Continue trazodone 100 mg at night/home medication CV: Hypertension Dyslipidemia Monitor HR and BP keep MAP>65mmHg Continue amlodipine at 10 mg daily, clonidine 0.1 twice daily , Hydralazine 25mg Q8, Lopressor 25mg BID, Cardura 8mg daily Resp: Acute hypoxemic respiratory failure COPD with ongoing tobaccoism Hypertension Hyperlipidemia Continue with oxygen jeep sats >92% Albuterol/ipratropium aerosols every 4 hours with albuterol aerosols every 2 hours as needed dyspnea Continue budesonide 0.5/2 1 inhalation twice daily On Solumederol 50mg IV Q8 On fluticasone/Vilanterol 200/25 daily at home Pulm is following- Dr. Jung GI: Gastroesophageal reflux disease Hypoalbuminemia Speech eval, diet per speech Lansoprazole 30 mg daily for GI prophylaxis Docusate sodium/senna 1 tablet twice daily for bowel regimen. 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 Medical renal disease, left cyst. Renal ultrasound 10/13 with left renal cyst, partially obstructing right renal calculus Avoid nephrotoxic drugs. Monitor renal function, electrolytes replacement as needed. Cr: 1.47, UOP:850ml in 24 hrs Renal is following Endo: Sliding scale insulin with Accu-Cheks to maintain euglycemia/every 6 hours Novolin R medium protocol Heme: Macrocytic anemia Thrombocytopenia Monitor CBC daily. Follow trends ID: On cefepime 2 g every 12 hours and metronidazole 500 mg every 6 hours Fluconazole 100 mg daily Pertinent cultures 10/25 -blood cultures 2 no growth 10/22 -bronc -rare budding yeast 10/13 -blood cultures 2 -no growth to date MSK: PT evaluate and treat Access -Utilize peripheral IV. Prophylaxis -GI lansoprazole -DVT -SCD/heparin subcu Will sign off please. Level 2 Carolyn Zepeda MD Oct 29, 2017 07:33
[2017-10-29] MEDS: CALCIUM CARBONATE 1.25 GM (CA 500 MG) TAB PO SCH ×2 (08:59→19:47)
[2017-10-29] MEDS: METOPROLOL TARTRATE 25 MG TAB PO SCH ×2 (08:59→19:47)
[2017-10-29] MEDS: NICOTINE 21 MG/24 HR PATCH T-DERMAL SCH (09:00)
[2017-10-29] MEDS: DOCUSATE SODIUM 50 MG/SENNA 8.6 MG TAB PO SCH ×2 (09:00→19:47)
[2017-10-29] MEDS: FINASTERIDE 5 MG TAB PO SCH (09:00)
[2017-10-29] MEDS: LANSOPRAZOLE SOLUTAB 30 MG TAB NG SCH (09:00)
[2017-10-29] MEDS: FOLIC ACID 1 MG TAB PO SCH (09:00)
[2017-10-29] MEDS: REMOVE OLD PATCH T-DERMAL SCH (09:00)
[2017-10-29] MEDS: LACTULOSE SYRUP 20 GM/30 ML CUP PO SCH ×4 (09:00→19:47)
[2017-10-29] MEDS: THIAMINE HCL 100 MG TAB PO SCH (09:00)
[2017-10-29] MEDS: cloNIDine HCL 0.1 MG TAB PO SCH ×2 (09:00→19:47)
[2017-10-29] MEDS: POLYETHYLENE GLYCOL 17 GM PKG OG-TUBE SCH ×2 (09:00→19:46)
[2017-10-29] MEDS: CEFEPIME INJ 1,000 MG in SODIUM CHLORIDE 0.9% INJ 100 ML IV SCH ×2 (09:02→15:38)
[2017-10-29] MEDS: SODIUM CHLORIDE 0.9% FLUSH 10 ML FLUSH IV FLUSH SCH ×2 (09:02→19:46)
[2017-10-29] MEDS: FLUTICASONE 200 MCG/VILANTEROL 25 MCG INHALER INH SCH (09:03)
[2017-10-29] MEDS: MULTIVITAMIN TAB PO SCH (09:03)
[2017-10-29] MEDS: CHLORHEXIDINE 0.12% (ORAL KIT) 15 ML CUP MT SCH ×2 (09:22→19:46)
[2017-10-29] MEDS: DOXAZOSIN MESYLATE 4 MG TAB PO SCH (09:23)
--- NOTE | 2017-10-29 09:59 | HHI.NPPN ---
Subjective Complaints: Shortness of Breath General Problems: Edema, Hypertension Renal Failure: Chronic, Acute History of Present Illness Patient is a 72-year-old male presents to the emergency department by EMS transport from home s/p fall after getting out of bed and being to weak to get up. Patient states he has chronic COPD and this morning was getting up out of bed without his walker to go to the bathroom and noticed that when he stood up that both of his legs are weak causing him to fall to the floor. Denies any fevers, CP, nausea, vomiting or diarrhea. 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 Nephrology was consulted of hypocalcemia, electrolyte imbalance, and CKD, Was found to have a calcium level of 6.6, potassium level of 2.8, creatinine of 1.74 and GFR of 37 ml/min. Patient drinks 12 oz of 94 proof GIN daily. Additional Remarks Patient is somewhat agitated. Reports that he is having a very hard time hearing. (Raysa Bhakta) Review of Systems Ears, Nose, & Throat ENT Remarks hearing loss (Raysa Bhakta) Respiratory Lungs: SOB, Cough, Sputum, Wheeze Respiratory Remarks Mild SOB (Raysa Bhakta) Cardiovascular Cardiac Remarks denies CP (Raysa Bhakta) Gastrointestinal GI Remarks No abdominal pain (Raysa Bhakta) Objective Data Data Vital Signs Date Time Temp Pulse Resp B/P (MAP) Pulse Ox O2 Delivery O2 Flow Rate FiO2 10/29/17 07:29 98 Nasal Cannula 4.00 10/29/17 06:00 80 10/29/17 04:00 90 10/29/17 04:00 98.2 79 25 143/67 (92) 98 10/29/17 02:00 94 10/29/17 00:00 98.0 104 14 165/70 (101) 98 10/29/17 00:00 104 10/28/17 22:00 105 10/28/17 20:41 95 Nasal Cannula 4.00 10/28/17 20:00 111 10/28/17 20:00 97.6 111 13 150/64 (92) 95 10/28/17 18:00 93 10/28/17 17:00 98 10/28/17 16:00 98.1 79 8 117/59 (78) 97 10/28/17 16:00 79 10/28/17 15:00 77 10/28/17 14:12 96 Nasal Cannula 4 10/28/17 14:00 117 10/28/17 13:00 63 10/28/17 12:00 98.5 55 17 121/61 (81) 86 10/28/17 12:00 55 10/28/17 12:00 35 10/28/17 11:33 98 35 10/28/17 11:00 59 10/28/17 10:00 58 (Raysa Bhakta) -: 10/29/17 0505 10/29/17 0505 Imaging Last Impressions Chest X-Ray 10/29/17 0600 Signed Impressions: Service Date/Time: October 02:24 - CONCLUSION: Unchanged left effusion and left lower lobe infiltrate. Jose Roberto Benitez Jr., MD Renal Ultrasound 10/25/17 0000 Signed Impressions: Service Date/Time: Wednesday, October 25, 2017 16:26 - CONCLUSION: 1. Echogenic kidneys characteristic of medical renal disease. No hydronephrosis. Small renal cysts. Prostatic enlargement. Ole Eckert MD Chest CT 10/13/17 1313 Signed Impressions: Service Date/Time: Friday, October 13, 2017 15:15 - CONCLUSION: 1. Left upper lobe and left lower lobe consolidation likely infiltrate. Recommend treatment and followup to resolution. 2. Mild emphysema without mass or concerning nodule. 3. Minimal coronary artery calcifications. Allen Alexander MD Lower Extremity Ultrasound 10/13/17 0000 Signed Impressions: Service Date/Time: Friday, October 13, 2017 04:08 - CONCLUSION: 1. No sonographic evidence for right lower extremity DVT. Pedro Bunn MD Ankle X-Ray 10/13/17 0000 Signed Impressions: Service Date/Time: Friday, October 13, 2017 03:58 - CONCLUSION: 1. Diffuse soft tissue swelling without radiopaque foreign bodies, acute fracture or bony erosion. Pedro Bunn MD Tubes & Lines: Muñoz (Raysa Bhakta) Physical Exam General Appearance: No Acute Distress (Raysa Bhakta) Eyes Eye Exam: Pupils Equal (Raysa Bhakta) Pulmonary Resp Exam: Breath Sounds Equal, Rhonchi, Decreased Bases Resp Remarks wheezy (Raysa Bhakta) Cardiology CV Exam: Regular (Raysa Bhakta) Gastrointestinal/Abdomen GI Exam: Soft, Non-Tender, Bowel Sounds Present (Raysa Bhakta) Genitourinary Exam: Flank Non-Tender (Raysa Bhakta) Integumentary Skin Exam: Clear, Warm Skin Remarks bruising present (Raysa Bhakta) Extremeties Extremities Exam: Trace Edema (Raysa Bhakta) Neurologic Neuro Exam: Sedated (Raysa Bhakta) Assessment/Plan Problem List: (1) Chronic renal disease ICD Codes: N18.9 - Chronic kidney disease Status: Chronic Plan: Patient with history of right partial nephrectomy for tumor. Most likely has CKD from HTN or renal vascular disease Patient has BERE, possibly pre renal or ATN. Proteinuria noted Plan Creatinine is stable at 1.47 Indwelling Muñoz catheter remains with good UOP Follow the urine out put and BMP. Fluids encouraged (2) Disorder of electrolytes ICD Codes: E87.8 - Other disorders of electrolyte and fluid balance, not elsewhere classified Status: Acute Plan: Calcium found to be at 6.6 and Potassium of 2.8 on admission Patient has received replacement and now WNL (3) COPD exacerbation ICD Codes: J44.1 - COPD exacerbation Status: Acute Plan: Continue O2 Mild SOB (4) Lactic acidosis ICD Codes: E87.2 - Acidosis Status: Acute Plan: Resolved (5) Hypertension ICD Codes: I10 - Essential (primary) hypertension Status: Chronic Plan: Well controlled (6) Weakness ICD Codes: R53.1 - Weakness Status: Acute Plan: Patient is very deconditioned and plan is for rehab (Raysa Bhakta) Problem List: (1) Chronic renal disease ICD Codes: N18.9 - Chronic kidney disease Status: Chronic Plan: Patient with history of right partial nephrectomy for tumor. Most likely has CKD from HTN or renal vascular disease Patient has BERE, possibly pre renal or ATN. Proteinuria noted Plan Creatinine is stable at 1.47 Indwelling Muñoz catheter remains with good UOP Follow the urine out put and BMP. Fluids encouraged. Patient seen and examined, agree with above. Avoid Nephrotoxins. (2) Disorder of electrolytes ICD Codes: E87.8 - Other disorders of electrolyte and fluid balance, not elsewhere classified Status: Acute Plan: Calcium found to be at 6.6 and Potassium of 2.8 on admission Patient has received replacement and now WNL (3) COPD exacerbation ICD Codes: J44.1 - COPD exacerbation Status: Acute Plan: Continue O2 Mild SOB (4) Lactic acidosis ICD Codes: E87.2 - Acidosis Status: Acute Plan: Resolved (5) Hypertension ICD Codes: I10 - Essential (primary) hypertension Status: Chronic Plan: Well controlled (6) Weakness ICD Codes: R53.1 - Weakness Status: Acute Plan: Patient is very deconditioned and plan is for rehab (Roberto Benitez MD) Problem Qualifiers (1) Chronic renal disease: Qualified Codes: N18.3 - Chronic kidney disease, stage 3 (moderate) (2) Hypertension: Qualified Codes: I10 - Essential (primary) hypertension Raysa Bhakta Oct 29, 2017 09:59 Roberto Benitez MD Oct 29, 2017 14:01
--- NOTE | 2017-10-29 18:47 | HHI.PR ---
Subjective Remarks Extubated and now on O 2 at 4 L. taking his diet well. Chest X ray shows Basal infiltrates. No chest pain. Objective Vital Signs Date Time Temp Pulse Resp B/P (MAP) Pulse Ox O2 Delivery O2 Flow Rate FiO2 10/29/17 07:29 98 Nasal Cannula 4.00 10/29/17 06:00 80 10/29/17 04:00 90 10/29/17 04:00 98.2 79 25 143/67 (92) 98 10/29/17 02:00 94 10/29/17 00:00 98.0 104 14 165/70 (101) 98 10/29/17 00:00 104 10/28/17 22:00 105 10/28/17 20:41 95 Nasal Cannula 4.00 10/28/17 20:00 111 10/28/17 20:00 97.6 111 13 150/64 (92) 95 I/O 10/28/17 10/28/17 10/28/17 10/29/17 10/29/17 10/29/17 06:59 14:59 22:59 06:59 14:59 22:59 Intake Total 625 ml 369 ml 1300 ml 100 ml Output Total 325 ml 400 ml 450 ml Balance 300 ml 369 ml 900 ml -350 ml Intake Oral 0 ml 150 ml 100 ml IV Total 100 ml 369 ml 1150 ml Tube Feeding 525 ml Output Urine Total 325 ml 400 ml 450 ml # Bowel Movements 0 0 Result Diagram: 10/29/17 0505 10/29/17 0505 Objective Remarks GENERAL: This elderly, averagely built, white male is in no acute distress. No cyanosis. There is no peripheral edema. No lymphadenopathy. HEENT: Head normocephalic. Pupils are reactive and equal. Tongue is moist. Nasal mucosa clear. NECK: No bruits. No venous distension . Trachea midline. CHEST: Equal movements with decreased breath sounds at bases and occ crackles at left base. HEART: Sounds were regular S1 and S2 with no murmur, no S3. ABDOMEN: Soft, protuberant without masses. No organomegaly or tenderness. Bowel sounds are active. EXTREMITIES: Decreased peripheral pulses and no edema. Reflexes are 1+. Neuro : Awake and talking appropriately Assessment and Plan Assessment and Plan IMPRESSION: 1. Chronic obstructive pulmonary disease with acute exacerbation. 2. Dehydration and acute kidney injury. 3. History of hypertension. 4. Left basilar pneumonia. 5. Left lung atelectasis Plan : 1.O2 at 4 L and wean 2. Continue antibiotics per Dr Orellana 3. Po Diet as tolerated 4. Chest Xray CBC in am 5. Duoneb nebs qid. 6. Resume heparin 5000U BID 7. Mucomyst 10 % 2 CC qid. 8. Symbicort 160/4.5 mcg , 2puffs bid 9. Use BIPAP at HS and PRN Vaibhav Tubbs MD Oct 29, 2017 18:47
[2017-10-29] MEDS: FLUCONAZOLE 100 MG PREMIX BAG 50 ML IV SCH (18:58)
[2017-10-29] MEDS: TAMSULOSIN HCL 0.4 MG CAP PO SCH (19:47)
[2017-10-29] MEDS: traZODone HCL 100 MG TAB PO SCH (19:47)
[2017-10-29] MEDS: RESP: ALBUTEROL 2.5 MG/3 ML NEB (PRN) NEB (20:13)
[2017-10-30] VITALS (20 sets, daily range): BP systolic 133–165; BP diastolic 59–92; PULSE 68–129; RESP 13–32; TEMP 97.9–98.5; O2SAT 93–97
[2017-10-30] MEDS: CHLORHEXIDINE GLUCONATE 2 % 1 PACK (2 CLOTHS)(taper/protocol) TOPICAL SCH (00:08)
[2017-10-30] MEDS: CEFEPIME INJ 1,000 MG in SODIUM CHLORIDE 0.9% INJ 100 ML IV SCH ×4 (00:08→23:39)
[2017-10-30] MEDS: metroNIDAZOLE 500 MG TAB PO SCH ×5 (00:08→23:38)
[2017-10-30] MEDS: methylPREDNISolone SOD SUCC 40 MG/1 ML VIAL IV PUSH SCH ×2 (05:34→20:40)
[2017-10-30] MEDS: ARTIFICIAL TEARS OPTH SOLN 15 ML BTL EACH EYE SCH ×3 (05:34→20:41)
[2017-10-30] MEDS: hydrALAZINE HCL 25 MG TAB PO SCH ×3 (05:35→22:00)
[2017-10-30] MEDS: INSULIN NovoLIN REGULAR SUPPLEMENTAL SCALE SQ SCH ×5 (05:35→23:39)
[2017-10-30] MEDS: ISOSORBIDE DINITRATE 10 MG TAB PO SCH ×3 (05:35→22:00)
[2017-10-30 06:24] LABS: AUTOMATED NEUTROPHIL # 6.3 TH/MM3 (1.8-7.7); BASOPHIL % 0.1 % (0.0-2.0); HEMATOCRIT 37.3 % (39.0-51.0); HEMOGLOBIN 12.7 GM/DL (13.0-17.0); LYMPH % 4.4 % (9.0-44.0); LYMPHOCYTE # 0.3 TH/MM3 (1.0-4.8); MEAN CELL VOLUME 102.3 FL (80.0-100.0); MEAN CORPUSCULAR HEMOGLOBIN 34.9 PG (27.0-34.0); MEAN CORPUSCULAR HGB CONC 34.1 % (32.0-36.0); MEAN PLATELET VOLUME 9.8 FL (7.0-11.0); MONO % 4.5 % (0.0-8.0); MONOCYTE # 0.3 TH/MM3 (0-0.9); PLATELET COUNT 109 TH/MM3 (150-450); RED BLOOD COUNT 3.64 MIL/MM3 (4.50-5.90); RED CELL DISTRIBUTION WIDTH 13.1 % (11.6-17.2)
[2017-10-30 06:50] LABS: BICARBONATE 20.9 MEQ/L (21.0-32.0); CALCIUM 7.8 MG/DL (8.5-10.1); CREATININE 1.69 MG/DL (0.60-1.30); MAGNESIUM 2.7 MG/DL (1.5-2.5); PHOSPHORUS 2.8 MG/DL (2.5-4.9)
[2017-10-30] MEDS: RESP: BUDESONIDE 0.5 MG/2 ML NEB NEB SCH ×2 (07:15→19:57)
[2017-10-30] MEDS: RESP: ALBUTEROL 2.5 MG/3 ML NEB (PRN) NEB ×4 (07:15→19:57)
[2017-10-30] MEDS: CHLORHEXIDINE 0.12% (ORAL KIT) 15 ML CUP MT SCH ×2 (08:00→20:00)
[2017-10-30] MEDS: POLYETHYLENE GLYCOL 17 GM PKG OG-TUBE SCH ×2 (09:00→20:40)
[2017-10-30] MEDS: LACTULOSE SYRUP 20 GM/30 ML CUP PO SCH ×4 (09:00→20:40)
[2017-10-30] MEDS: DOCUSATE SODIUM 50 MG/SENNA 8.6 MG TAB PO SCH ×2 (09:00→20:40)
[2017-10-30] MEDS: REMOVE OLD PATCH T-DERMAL SCH (09:00)
--- NOTE | 2017-10-30 10:47 | HHI.PR ---
Subjective Remarks Coughing thick mucous Objective Vital Signs Date Time Temp Pulse Resp B/P (MAP) Pulse Ox O2 Delivery O2 Flow Rate FiO2 10/30/17 07:15 97 Nasal Cannula 2.00 10/30/17 06:00 82 10/30/17 04:00 78 10/30/17 04:00 98.0 68 31 150/70 (96) 97 10/30/17 02:00 79 10/30/17 00:00 98.2 78 30 137/92 (107) 97 10/30/17 00:00 78 10/29/17 22:00 88 10/29/17 20:13 96 Nasal Cannula 2.00 10/29/17 20:00 98.4 93 30 137/92 (107) 96 10/29/17 20:00 93 10/29/17 18:01 97 28 166/94 (118) 97 10/29/17 18:01 97 10/29/17 17:00 79 10/29/17 17:00 79 21 123/57 (79) 96 10/29/17 16:00 85 10/29/17 16:00 97.9 85 21 128/58 (81) 95 10/29/17 15:00 75 10/29/17 15:00 75 23 143/67 (92) 97 10/29/17 14:01 79 24 131/62 (85) 96 10/29/17 14:01 79 10/29/17 13:00 85 37 130/66 (87) 95 10/29/17 13:00 85 10/29/17 12:00 91 10/29/17 12:00 97.6 91 25 131/60 (83) 97 10/29/17 11:00 91 24 123/89 (100) 97 10/29/17 11:00 91 I/O 10/29/17 10/29/17 10/29/17 10/30/17 10/30/17 10/30/17 07:00 15:00 23:00 07:00 15:00 23:00 Intake Total 100 ml 870 ml 200 ml Output Total 450 ml 650 ml 750 ml Balance -350 ml 220 ml -550 ml Intake Oral 100 ml 720 ml 100 ml IV Total 150 ml 100 ml Output Urine Total 450 ml 650 ml 750 ml # Bowel Movements 0 1 0 Result Diagram: 10/30/1753410/30/1735 Imaging Last 72 hours Impressions Chest X-Ray 10/29/17599 Signed Impressions: Service Date/Time: October 02:24 - CONCLUSION: Unchanged left effusion and left lower lobe infiltrate. Jose Roberto Benitez Jr., MD Chest X-Ray 10/28/17599 Signed Impressions: Service Date/Time: Saturday, October 28, 2017 03:59 - CONCLUSION: Unchanged left effusion and left lower lobe infiltrate. Jose Roberto Benitez Jr., MD Objective Remarks GENERAL: This is a well-nourished, elderly male on 2liters SKIN: No rashes, ecchymotic area to B/L UE HEAD: Atraumatic. Normocephalic. No temporal or scalp tenderness. EYES: Pupils equal round and reactive. Extraocular motions intact. No scleral icterus. No injection or drainage. ENT: Nose without bleeding, purulent drainage NECK: Trachea midline. No JVD CARDIOVASCULAR: Regular rate and rhythm without murmurs, gallops, or rubs. RESPIRATORY: Equal B/l, thick secretions, rhonchi, wheezes GASTROINTESTINAL: Abdomen soft, non-tender, nondistended. MUSCULOSKELETAL: trace edema NEUROLOGICAL: alert oriented, no distress Medications and IVs Current Medications Medications (Trade) Dose Ordered Sig/Nayeli Route Start Time Stop Time Status Last Admin (Cardura) 8 mg DAILY PO 10/13/17 09:00 10/29/17 09:23 (Proscar) 5 mg DAILY PO 10/13/17 09:00 10/29/17 09:00 (Breo Ellipta 200-25 Inh) 1 puff DAILY INH 10/13/17 09:00 10/29/17 09:03 (Flomax) 0.4 mg HS PO 10/13/17 21:00 10/29/17 19:47 (Desyrel) 100 mg HS PO 10/13/17 21:00 10/29/17 19:47 (NS Flush) 2 ml UNSCH PRN IV FLUSH 10/13/17 06:00 (NS Flush) 2 ml BID IV FLUSH 10/13/17 09:00 10/29/17 19:46 (Narcan Inj) 0.4 mg UNSCH PRN IV PUSH 10/13/17 06:00 (Oscal) 500 mg Q12HR PO 10/13/17 09:00 10/29/17 19:47 (Pill Splitter) 1 ea UNSCH PRN OTHER 10/13/17 06:15 (Symbicort 160-4.5 Mcg Inh) 2 puff Q12HR INH 10/13/17 21:00 Future Hold 10/27/17 07:38 (Habitrol 21 Mg Patch.24 Hr) 1 patch DAILY T-DERMAL 10/15/17 09:00 10/29/17 09:00 Miscellaneous Information 1 DAILY T-DERMAL 10/15/17 09:00 10/28/17 09:00 (Lopressor) 25 mg BID PO 10/14/17 21:00 10/29/17 19:47 (Romazicon Inj) 0.2 mg Q1M PRN IV PUSH 10/15/17 10:00 (Ceftin) 500 mg Q12HR PO 10/23/17 21:00 Future Hold 10/25/17 08:21 (SoluMEDROL INJ) 40 mg Q8HR IV PUSH 10/25/17 12:15 10/30/17 05:34 (Peridex 0.12% Liq) 15 ml BID@08,20 MT 10/25/17 20:00 10/29/17 09:22 (Tears Naturale Opth Soln) 1 drop Q8HR EACH EYE 10/25/17 22:00 10/30/17 05:34 (Prevacid Odt) 30 mg DAILY NG 10/26/17 09:00 10/29/17 09:00 Cefepime HCl 1000 mg/Sodium Chloride 100 ml @ 200 mls/hr Q8H IV 10/25/17 16:00 10/30/17 00:08 (Flagyl) 500 mg Q6HR PO 10/25/17 18:00 10/30/17 05:35 Fluconazole/ Sodium Chloride 50 ml @ 50 mls/hr Q24H IV 10/25/17 17:00 10/29/17 18:58 (Albuterol Neb) 2.5 mg Q2HR NEB PRN NEB 10/25/17 16:15 10/30/17 07:15 (Elvie-Colace) 1 tab BID PO 10/25/17 21:00 10/29/17 09:00 (Pulmicort Respule Neb) 0.5 mg Q12HR NEB NEB 10/25/17 20:00 10/30/17 07:15 (D50w (Vial) Inj) 50 ml UNSCH PRN IV PUSH 10/25/17 17:00 (Glucagon Inj) 1 mg UNSCH PRN OTHER 10/25/17 17:00 (NovoLIN R SUPPLEMENTAL SCALE) 1 Q6HR SQ 10/25/17 18:00 10/27/17 23:54 (Vitamin B1) 100 mg DAILY PO 10/26/17 09:00 10/29/17 09:00 (Folate) 1 mg DAILY PO 10/26/17 09:00 10/29/17 09:00 (Theragran) 1 tab DAILY PO 10/26/17 09:00 10/29/17 09:03 Miscellaneous Information Patient in critical care unit? Ass... Q361D .XX 10/25/17 22:00 10/25/17 22:00 (Chlorhexidine 2% Cloth) 3 pack UNSCH PRN TOPICAL 10/25/17 22:00 10/30/17 21:55 (Tylenol 650 Mg/ 20 ml Liq) 650 mg Q6H PRN PO 10/26/17 12:45 (Apresoline) 10 mg Q1H PRN PO 10/26/17 18:15 10/27/17 08:16 (Trandate Inj) 10 mg Q1H PRN IV PUSH 10/26/17 18:15 (Nitroglycerin 2% Oint) 2 inch Q6HR PRN TOPICAL 10/26/17 18:15 10/27/17 08:16 (Norvasc) 10 mg DAILY PO 10/27/17 09:00 10/29/17 09:03 (Apresoline) 25 mg Q8HR PO 10/27/17 14:00 10/30/17 05:35 (Isordil) 10 mg Q8HR PO 10/27/17 08:15 10/30/17 05:35 (Catapres) 0.1 mg BID PO 10/27/17 21:00 10/29/17 19:47 (Miralax) 17 gm BID OG-TUBE 10/27/17 21:00 10/29/17 09:00 (Lactulose Liq) 30 ml QID PO 10/28/17 18:00 10/28/17 19:50 Assessment and Plan Problem List: (1) Respiratory failure ICD Codes: J96.90 - Respiratory failure, unspecified, unspecified whether with hypoxia or hypercapnia Plan: Extubated on 10/28, 02 2l, pulmonary following (2) Left lower lobe pneumonia ICD Codes: J18.1 - Lobar pneumonia, unspecified organism Status: Acute Plan: pulmonary following, continue Cefepime, Flagyl (3) COPD exacerbation ICD Codes: J44.1 - COPD exacerbation Status: Acute Plan: Followed by pulmonary Bronchodilators, Solu-medrol (4) Chronic renal disease ICD Codes: N18.9 - Chronic kidney disease Status: Chronic Plan: Renal following, History of nephrectomy r/t carcinoma. Avoid nephro toxins (5) Hypertension ICD Codes: I10 - Essential (primary) hypertension Status: Chronic Plan: On multiple agents. Under better control cont to monitor (6) Alcohol abuse ICD Codes: F10.10 - Alcohol abuse Status: Chronic Plan: CIWA protocol (7) Weakness ICD Codes: R53.1 - Weakness Status: Acute Plan: will need snf/rehab at [place] Assessment and Plan 10/29/17 In bed no apparent distress, Voices he is [place] since coming off vent, believe it is medicated related. Sat's are maintained on Vent mask continue with rhonchi and wheezes, look to Dc upcoming days if cont to improve. He is accepted at [facility]. 10/30/17 Having coughing fits, with elevated HR. Thick mucous. Mucinex added. he voices he was up with therapy standing only for 1 minute, very weak. Mood starting to be affected r/t long hospitalization. Problem Qualifiers (1) Left lower lobe pneumonia: Qualified Codes: J69.0 - Pneumonitis due to inhalation of food and vomit (2) Chronic renal disease: Qualified Codes: N18.3 - Chronic kidney disease, stage 3 (moderate) (3) Hypertension: Qualified Codes: I10 - Essential (primary) hypertension Sulma Macias Oct 30, 2017 10:47
[2017-10-30] MEDS: cloNIDine HCL 0.1 MG TAB PO SCH ×2 (11:25→20:40)
[2017-10-30] MEDS: LANSOPRAZOLE SOLUTAB 30 MG TAB NG SCH (11:25)
[2017-10-30] MEDS: MULTIVITAMIN TAB PO SCH (11:25)
[2017-10-30] MEDS: METOPROLOL TARTRATE 25 MG TAB PO SCH ×2 (11:25→20:40)
[2017-10-30] MEDS: CALCIUM CARBONATE 1.25 GM (CA 500 MG) TAB PO SCH ×2 (11:26→20:40)
[2017-10-30] MEDS: FINASTERIDE 5 MG TAB PO SCH (11:26)
[2017-10-30] MEDS: DOXAZOSIN MESYLATE 4 MG TAB PO SCH (11:26)
[2017-10-30] MEDS: THIAMINE HCL 100 MG TAB PO SCH (11:26)
[2017-10-30] MEDS: FOLIC ACID 1 MG TAB PO SCH (11:26)
[2017-10-30] MEDS: FLUTICASONE 200 MCG/VILANTEROL 25 MCG INHALER INH SCH (11:26)
[2017-10-30] MEDS: guaiFENesin E.R. 600 MG TAB PO SCH ×2 (12:00→20:40)
[2017-10-30] MEDS: SODIUM CHLORIDE 0.9% FLUSH 10 ML FLUSH IV FLUSH SCH ×2 (12:28→20:39)
[2017-10-30] MEDS: NICOTINE 21 MG/24 HR PATCH T-DERMAL SCH (12:29)
--- NOTE | 2017-10-30 12:47 | HHI.PR ---
Subjective Remarks Extubated and now on O 2 at 3 L. taking his diet well.cannot sleep Chest X ray shows Basal infiltrates. No chest pain. Objective Vital Signs Date Time Temp Pulse Resp B/P (MAP) Pulse Ox O2 Delivery O2 Flow Rate FiO2 10/30/17 07:15 97 Nasal Cannula 2.00 10/30/17 06:00 82 10/30/17 04:00 78 10/30/17 04:00 98.0 68 31 150/70 (96) 97 10/30/17 02:00 79 10/30/17 00:00 98.2 78 30 137/92 (107) 97 10/30/17 00:00 78 10/29/17 22:00 88 10/29/17 20:13 96 Nasal Cannula 2.00 10/29/17 20:00 98.4 93 30 137/92 (107) 96 10/29/17 20:00 93 10/29/17 18:01 97 28 166/94 (118) 97 10/29/17 18:01 97 10/29/17 17:00 79 10/29/17 17:00 79 21 123/57 (79) 96 10/29/17 16:00 85 10/29/17 16:00 97.9 85 21 128/58 (81) 95 10/29/17 15:00 75 10/29/17 15:00 75 23 143/67 (92) 97 10/29/17 14:01 79 24 131/62 (85) 96 10/29/17 14:01 79 10/29/17 13:00 85 37 130/66 (87) 95 10/29/17 13:00 85 I/O 10/29/17 10/29/17 10/29/17 10/30/17 10/30/17 10/30/17 07:00 15:00 23:00 07:00 15:00 23:00 Intake Total 100 ml 870 ml 200 ml Output Total 450 ml 650 ml 750 ml Balance -350 ml 220 ml -550 ml Intake Oral 100 ml 720 ml 100 ml IV Total 150 ml 100 ml Output Urine Total 450 ml 650 ml 750 ml # Bowel Movements 0 1 0 Result Diagram: 10/30/17 0535 10/30/17 0535 Objective Remarks GENERAL: This elderly, averagely built, white male is in no acute distress. No cyanosis. There is no peripheral edema. No lymphadenopathy. HEENT: Head normocephalic. Pupils are reactive and equal. Tongue is moist. Nasal mucosa clear. NECK: No bruits. No venous distension . Trachea midline. CHEST: Equal movements with decreased breath sounds at bases , wheezes and occ crackles at left base. HEART: Sounds were regular S1 and S2 with no murmur, no S3. ABDOMEN: Soft, protuberant without masses. No organomegaly or tenderness. Bowel sounds are active. EXTREMITIES: Decreased peripheral pulses and 1 + edema. Reflexes are 1+. Neuro : Awake and talking appropriately Assessment and Plan Assessment and Plan IMPRESSION: 1. Chronic obstructive pulmonary disease with acute exacerbation. 2. Dehydration and acute kidney injury. 3. History of hypertension. 4. Left basilar pneumonia. 5. Left lung atelectasis Plan : 1.O2 at 3 L and wean 2. Continue antibiotics per Dr Orellana 3. Po Diet as tolerated 4. Ambien 5 mg HS PRN 5. Duoneb nebs qid. 6. Resume heparin 5000U BID 7. D/C Mucomyst 8. Symbicort 160/4.5 mcg , 2puffs bid 9. Use BIPAP at HS and PRN 10. Taper solumedrol to 40 mg BID Vaibhav Tubbs MD Oct 30, 2017 12:47
[2017-10-30] MEDS: SODIUM CHLOR 0.9% 1000 ML INJ 1,000 ML IV SCH (16:56)
[2017-10-30] MEDS: FLUCONAZOLE 100 MG PREMIX BAG 50 ML IV SCH (16:57)
--- NOTE | 2017-10-30 17:28 | HHI.NPPN ---
Subjective Complaints: Shortness of Breath General Problems: Edema, Hypertension Renal Failure: Chronic, Acute History of Present Illness Patient is a 72-year-old male presents to the emergency department by EMS transport from home s/p fall after getting out of bed and being to weak to get up. Patient states he has chronic COPD and this morning was getting up out of bed without his walker to go to the bathroom and noticed that when he stood up that both of his legs are weak causing him to fall to the floor. Denies any fevers, CP, nausea, vomiting or diarrhea. 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 Nephrology was consulted of hypocalcemia, electrolyte imbalance, and CKD, Was found to have a calcium level of 6.6, potassium level of 2.8, creatinine of 1.74 and GFR of 37 ml/min. Patient drinks 12 oz of 94 proof GIN daily. Additional Remarks Patient is clinically same, not in distress. Review of Systems Ears, Nose, & Throat ENT Remarks hearing loss Respiratory Lungs: SOB, Cough, Sputum, Wheeze Respiratory Remarks Mild SOB Cardiovascular Cardiac Remarks denies CP Gastrointestinal GI Remarks No abdominal pain Objective Data Data Vital Signs Date Time Temp Pulse Resp B/P (MAP) Pulse Ox O2 Delivery O2 Flow Rate FiO2 10/30/17 07:15 97 Nasal Cannula 2.00 10/30/17 06:00 82 10/30/17 04:00 78 10/30/17 04:00 98.0 68 31 150/70 (96) 97 10/30/17 02:00 79 10/30/17 00:00 98.2 78 30 137/92 (107) 97 10/30/17 00:00 78 10/29/17 22:00 88 10/29/17 20:13 96 Nasal Cannula 2.00 10/29/17 20:00 98.4 93 30 137/92 (107) 96 10/29/17 20:00 93 10/29/17 18:01 97 28 166/94 (118) 97 10/29/17 18:01 97 -: 10/30/17 0535 10/30/17 0535 Tubes & Lines: Muñoz Physical Exam General Appearance: No Acute Distress Eyes Eye Exam: Pupils Equal Pulmonary Resp Exam: Breath Sounds Equal, Rhonchi, Decreased Bases Cardiology CV Exam: Regular Gastrointestinal/Abdomen GI Exam: Soft, Non-Tender, Bowel Sounds Present Genitourinary Exam: Flank Non-Tender Integumentary Skin Exam: Clear, Warm Extremeties Extremities Exam: Trace Edema Neurologic Neuro Exam: Sedated Assessment/Plan Problem List: (1) Chronic renal disease ICD Codes: N18.9 - Chronic kidney disease Status: Chronic Plan: Patient with history of right partial nephrectomy for tumor. Most likely has CKD from HTN or renal vascular disease Patient has BERE, possibly pre renal or ATN. Proteinuria noted Plan Creatinine increase to 1.6, Indwelling Muñoz catheter remains with good UOP Follow the urine out put and BMP. Fluids encouraged. Avoid Nephrotoxins. (2) Disorder of electrolytes ICD Codes: E87.8 - Other disorders of electrolyte and fluid balance, not elsewhere classified Status: Acute Plan: Calcium found to be at 6.6 and Potassium of 2.8 on admission Patient has received replacement and now WNL (3) COPD exacerbation ICD Codes: J44.1 - COPD exacerbation Status: Acute Plan: Continue O2 Mild SOB (4) Lactic acidosis ICD Codes: E87.2 - Acidosis Status: Acute Plan: Resolved (5) Hypertension ICD Codes: I10 - Essential (primary) hypertension Status: Chronic Plan: Well controlled (6) Weakness ICD Codes: R53.1 - Weakness Status: Acute Plan: Patient is very deconditioned and plan is for rehab Problem Qualifiers (1) Chronic renal disease: Qualified Codes: N18.3 - Chronic kidney disease, stage 3 (moderate) (2) Hypertension: Qualified Codes: I10 - Essential (primary) hypertension Roberto Benitez MD Oct 30, 2017 17:28
[2017-10-30] MEDS: traZODone HCL 100 MG TAB PO SCH (20:40)
[2017-10-30] MEDS: TAMSULOSIN HCL 0.4 MG CAP PO SCH (20:40)
[2017-10-30] MEDS: ZOLPIDEM TARTRATE 5 MG TAB PO PRN (22:01)
[2017-10-31] VITALS (10 sets, daily range): BP systolic 123–160; BP diastolic 60–79; PULSE 66–104; RESP 18–22; TEMP 97.9–98.7; O2SAT 93–98
[2017-10-31] MEDS: ARTIFICIAL TEARS OPTH SOLN 15 ML BTL EACH EYE SCH ×3 (05:35→22:17)
[2017-10-31] MEDS: hydrALAZINE HCL 25 MG TAB PO SCH ×3 (05:36→22:15)
[2017-10-31] MEDS: metroNIDAZOLE 500 MG TAB PO SCH ×3 (05:36→17:34)
[2017-10-31] MEDS: INSULIN NovoLIN REGULAR SUPPLEMENTAL SCALE SQ SCH ×3 (05:36→17:48)
[2017-10-31] MEDS: ISOSORBIDE DINITRATE 10 MG TAB PO SCH ×3 (05:36→22:13)
[2017-10-31] MEDS: CHLORHEXIDINE 0.12% (ORAL KIT) 15 ML CUP MT SCH ×2 (08:00→20:00)
[2017-10-31] MEDS: RESP: BUDESONIDE 0.5 MG/2 ML NEB NEB SCH (08:04)
[2017-10-31] MEDS: LACTULOSE SYRUP 20 GM/30 ML CUP PO SCH ×5 (08:23→21:00)
[2017-10-31] MEDS: DOCUSATE SODIUM 50 MG/SENNA 8.6 MG TAB PO SCH ×2 (08:23→21:00)
[2017-10-31] MEDS: POLYETHYLENE GLYCOL 17 GM PKG OG-TUBE SCH ×2 (08:23→21:00)
[2017-10-31] MEDS: CEFEPIME INJ 1,000 MG in SODIUM CHLORIDE 0.9% INJ 100 ML IV SCH ×2 (08:35→14:55)
[2017-10-31] MEDS: FLUTICASONE 200 MCG/VILANTEROL 25 MCG INHALER INH SCH (08:36)
[2017-10-31] MEDS: LANSOPRAZOLE SOLUTAB 30 MG TAB NG SCH (08:37)
[2017-10-31] MEDS: cloNIDine HCL 0.1 MG TAB PO SCH ×2 (08:37→22:11)
[2017-10-31] MEDS: METOPROLOL TARTRATE 25 MG TAB PO SCH ×2 (08:37→22:15)
[2017-10-31] MEDS: guaiFENesin E.R. 600 MG TAB PO SCH ×2 (08:37→22:13)
[2017-10-31] MEDS: THIAMINE HCL 100 MG TAB PO SCH (08:37)
[2017-10-31] MEDS: DOXAZOSIN MESYLATE 4 MG TAB PO SCH (08:37)
[2017-10-31] MEDS: FINASTERIDE 5 MG TAB PO SCH (08:37)
[2017-10-31] MEDS: FOLIC ACID 1 MG TAB PO SCH (08:37)
[2017-10-31] MEDS: methylPREDNISolone SOD SUCC 40 MG/1 ML VIAL IV PUSH SCH ×2 (08:38→22:18)
[2017-10-31] MEDS: SODIUM CHLORIDE 0.9% FLUSH 10 ML FLUSH IV FLUSH SCH ×2 (08:38→22:18)
[2017-10-31] MEDS: MULTIVITAMIN TAB PO SCH (08:40)
[2017-10-31] MEDS: CALCIUM CARBONATE 1.25 GM (CA 500 MG) TAB PO SCH ×2 (08:40→22:11)
[2017-10-31] MEDS: REMOVE OLD PATCH T-DERMAL SCH (08:41)
[2017-10-31] MEDS: NICOTINE 21 MG/24 HR PATCH T-DERMAL SCH (08:42)
[2017-10-31] MEDS: CARBAMIDE PEROXIDE 6.5% OTIC SOLN 15 ML BTL EACH EAR SCH ×2 (10:30→22:09)
[2017-10-31] MEDS ORDERED: SODIUM CHLORIDE 0.65% NASAL SPRAY 45 ML BTL EACH NARE ONE (10:30)
--- NOTE | 2017-10-31 10:38 | HHI.PR ---
Subjective Remarks The patient said that he was depressed. He said it is because he is just laying in bed all day. He says he has lost hearing in both ears over the past few days and wants to know why. He said he is weak. Discussed with nursing at the bedside. Objective Vitals Vital Signs Date Time Temp Pulse Resp B/P (MAP) Pulse Ox O2 Delivery O2 Flow Rate FiO2 10/31/17 08:05 98 Nasal Cannula 2.00 10/31/17 08:00 97.9 87 22 154/73 (100) 98 10/31/17 08:00 87 10/31/17 06:00 86 10/31/17 04:00 98.0 81 20 138/66 (90) 97 10/31/17 04:00 83 10/31/17 02:00 84 10/31/17 00:00 84 10/31/17 00:00 98.2 84 21 123/60 (81) 94 10/30/17 22:00 79 10/30/17 20:00 87 10/30/17 20:00 98.5 87 32 158/73 (101) 96 10/30/17 19:57 95 Nasal Cannula 2.00 10/30/17 18:00 81 19 141/66 (91) 96 10/30/17 18:00 81 10/30/17 17:00 98 10/30/17 17:00 98 24 138/63 (88) 94 10/30/17 16:00 97.9 98 21 133/59 (83) 93 10/30/17 16:00 98 10/30/17 15:00 87 18 150/70 (96) 96 10/30/17 15:00 87 10/30/17 14:00 96 23 162/76 (104) 95 10/30/17 14:00 96 10/30/17 13:00 83 10/30/17 13:00 83 23 152/70 (97) 96 10/30/17 12:00 129 10/30/17 12:00 129 17 165/76 (105) 94 10/30/17 11:00 98 13 152/71 (98) 96 10/30/17 11:00 98 I/O 10/30/17 10/30/17 10/30/17 10/31/17 10/31/17 10/31/17 07:00 15:00 23:00 07:00 15:00 23:00 Intake Total 200 ml 1139 ml 580 ml Output Total 750 ml 1000 ml 1400 ml Balance -550 ml 139 ml -820 ml Intake Oral 100 ml 720 ml 100 ml IV Total 100 ml 419 ml 480 ml Output Urine Total 750 ml 1000 ml 1400 ml # Bowel Movements 0 0 1 Result Diagram: 10/30/17 0535 10/30/17 0535 Imaging Last Impressions Chest X-Ray 10/29/17 0600 Signed Impressions: Service Date/Time: October 02:24 - CONCLUSION: Unchanged left effusion and left lower lobe infiltrate. Jose Roberto Benitez Jr., MD Renal Ultrasound 10/25/17 0000 Signed Impressions: Service Date/Time: Wednesday, October 25, 2017 16:26 - CONCLUSION: 1. Echogenic kidneys characteristic of medical renal disease. No hydronephrosis. Small renal cysts. Prostatic enlargement. Ole Eckert MD Chest CT 10/13/17 1313 Signed Impressions: Service Date/Time: Friday, October 13, 2017 15:15 - CONCLUSION: 1. Left upper lobe and left lower lobe consolidation likely infiltrate. Recommend treatment and followup to resolution. 2. Mild emphysema without mass or concerning nodule. 3. Minimal coronary artery calcifications. Allen Alexander MD Lower Extremity Ultrasound 10/13/17 0000 Signed Impressions: Service Date/Time: Friday, October 13, 2017 04:08 - CONCLUSION: 1. No sonographic evidence for right lower extremity DVT. Pedro Bunn MD Ankle X-Ray 10/13/17 0000 Signed Impressions: Service Date/Time: Friday, October 13, 2017 03:58 - CONCLUSION: 1. Diffuse soft tissue swelling without radiopaque foreign bodies, acute fracture or bony erosion. Pedro Bunn MD Objective Remarks GENERAL: This is a well-nourished, elderly male in NAD. SKIN: No rashes, ecchymotic area to B/L UE. HEAD: Atraumatic. Normocephalic. No temporal or scalp tenderness. EYES: Pupils equal round and reactive. Extraocular motions intact. No scleral icterus. No injection or drainage. ENT: Nose without bleeding, purulent drainage. NECK: Trachea midline. No JVD CARDIOVASCULAR: Distant heart sounds. RESPIRATORY: Coarse breath sounds with diffuse rhonchi and wheezing. GASTROINTESTINAL: Abdomen soft, non-tender, nondistended. MUSCULOSKELETAL: No edema NEUROLOGICAL: alert and oriented. Procedures Intubation/ extubation Medications and IVs Current Medications Medications (Trade) Dose Ordered Sig/Nayeli Route Start Time Stop Time Status Last Admin (Cardura) 8 mg DAILY PO 10/13/17 09:00 10/31/17 08:37 (Proscar) 5 mg DAILY PO 10/13/17 09:00 10/31/17 08:37 (Breo Ellipta 200-25 Inh) 1 puff DAILY INH 10/13/17 09:00 10/31/17 08:36 (Flomax) 0.4 mg HS PO 10/13/17 21:00 10/30/17 20:40 (Desyrel) 100 mg HS PO 10/13/17 21:00 10/30/17 20:40 (NS Flush) 2 ml UNSCH PRN IV FLUSH 10/13/17 06:00 (NS Flush) 2 ml BID IV FLUSH 10/13/17 09:00 10/31/17 08:38 (Narcan Inj) 0.4 mg UNSCH PRN IV PUSH 10/13/17 06:00 (Oscal) 500 mg Q12HR PO 10/13/17 09:00 10/31/17 08:40 (Pill Splitter) 1 ea UNSCH PRN OTHER 10/13/17 06:15 (Symbicort 160-4.5 Mcg Inh) 2 puff Q12HR INH 10/13/17 21:00 Future Hold 10/27/17 07:38 (Habitrol 21 Mg Patch.24 Hr) 1 patch DAILY T-DERMAL 10/15/17 09:00 10/31/17 08:42 Miscellaneous Information 1 DAILY T-DERMAL 10/15/17 09:00 10/31/17 08:41 (Lopressor) 25 mg BID PO 10/14/17 21:00 10/31/17 08:37 (Romazicon Inj) 0.2 mg Q1M PRN IV PUSH 10/15/17 10:00 (Ceftin) 500 mg Q12HR PO 10/23/17 21:00 Future Hold 10/25/17 08:21 (Peridex 0.12% Liq) 15 ml BID@08,20 MT 10/25/17 20:00 10/29/17 09:22 (Tears Naturale Opth Soln) 1 drop Q8HR EACH EYE 10/25/17 22:00 10/31/17 05:35 (Prevacid Odt) 30 mg DAILY NG 10/26/17 09:00 10/31/17 08:37 Cefepime HCl 1000 mg/Sodium Chloride 100 ml @ 200 mls/hr Q8H IV 10/25/17 16:00 10/31/17 08:35 (Flagyl) 500 mg Q6HR PO 10/25/17 18:00 10/31/17 05:36 Fluconazole/ Sodium Chloride 50 ml @ 50 mls/hr Q24H IV 10/25/17 17:00 10/30/17 16:57 (Albuterol Neb) 2.5 mg Q2HR NEB PRN NEB 10/25/17 16:15 10/30/17 19:57 (Elvie-Colace) 1 tab BID PO 10/25/17 21:00 10/30/17 20:40 (Pulmicort Respule Neb) 0.5 mg Q12HR NEB NEB 10/25/17 20:00 10/31/17 08:04 (D50w (Vial) Inj) 50 ml UNSCH PRN IV PUSH 10/25/17 17:00 (Glucagon Inj) 1 mg UNSCH PRN OTHER 10/25/17 17:00 (NovoLIN R SUPPLEMENTAL SCALE) 1 Q6HR SQ 10/25/17 18:00 10/27/17 23:54 (Vitamin B1) 100 mg DAILY PO 10/26/17 09:00 10/31/17 08:37 (Folate) 1 mg DAILY PO 10/26/17 09:00 10/31/17 08:37 (Theragran) 1 tab DAILY PO 10/26/17 09:00 10/31/17 08:40 Miscellaneous Information Patient in critical care unit? Ass... Q361D .XX 10/25/17 22:00 10/25/17 22:00 (Tylenol 650 Mg/ 20 ml Liq) 650 mg Q6H PRN PO 10/26/17 12:45 (Apresoline) 10 mg Q1H PRN PO 10/26/17 18:15 10/27/17 08:16 (Trandate Inj) 10 mg Q1H PRN IV PUSH 10/26/17 18:15 (Nitroglycerin 2% Oint) 2 inch Q6HR PRN TOPICAL 10/26/17 18:15 10/27/17 08:16 (Norvasc) 10 mg DAILY PO 10/27/17 09:00 10/31/17 08:37 (Apresoline) 25 mg Q8HR PO 10/27/17 14:00 10/31/17 05:36 (Isordil) 10 mg Q8HR PO 10/27/17 08:15 10/31/17 05:36 (Catapres) 0.1 mg BID PO 10/27/17 21:00 10/31/17 08:37 (Miralax) 17 gm BID OG-TUBE 10/27/17 21:00 10/29/17 09:00 (Lactulose Liq) 30 ml QID PO 10/28/17 18:00 10/28/17 19:50 (Mucinex Er) 600 mg BID PO 10/30/17 12:00 10/31/17 08:37 (Ambien) 5 mg HS PRN PO 10/30/17 12:45 10/30/17 22:01 (SoluMEDROL INJ) 40 mg BID IV PUSH 10/30/17 21:00 10/31/17 08:38 Sodium Chloride 1,000 ml @ 42 mls/hr [id number] IV 10/30/17 14:00 10/30/17 16:56 (Debrox 6.5% Otic) 5 drop Q12HR EACH EAR 10/31/17 10:30 (Porter Fuad [place]) 2 spray Q4H PRN EACH NARE 10/31/17 10:30 UNV (Porter U[place]ad [place]) 2 spray ONCE ONCE EACH NARE 10/31/17 10:30 10/31/17 10:31 UNV A/P Assessment and Plan Acute respiratory failure S/p intubation. Extubated on 10/28. Has left lower lobe pneumonia. Has COPD. - 02 and nebs as needed. - pulmonary following, appreciate assistance. - continue IV cefepime and Flagyl. - continue bronchodilators and Solumedrol. Chronic renal disease Nephrology consult appreciated. History of nephrectomy r/t carcinoma. - Avoid nephrotoxins. - follow up with nephrology. Hypertension Relatively well controlled. - continue current regimen. Alcohol abuse On CIWA protocol. - cessation instruction. Weakness The pt lives alone. - PT/ OT. - treatment as above. Hard of hearing The pt says he has lost hearing in both ears over the past few days. He denies any ringing in his ears. ? s/t congestion, cerumen buildup. - trial of Debrox gtts. - Porter nasal spray. - recommend outpt ENT evaluation. Depression Situational. - will likely do better after discharge. - alcohol cessation instruction. - outpt follow-up with PCP. PPx: Heparin Discharge Planning Transfer to floor Colby Alexander DO Oct 31, 2017 10:38
--- NOTE | 2017-10-31 13:13 | HHI.NPPN ---
Subjective Complaints: Shortness of Breath General Problems: Edema, Hypertension Renal Failure: Chronic, Acute History of Present Illness Patient is a 72-year-old male presents to the emergency department by EMS transport from home s/p fall after getting out of bed and being to weak to get up. Patient states he has chronic COPD and this morning was getting up out of bed without his walker to go to the bathroom and noticed that when he stood up that both of his legs are weak causing him to fall to the floor. Denies any fevers, CP, nausea, vomiting or diarrhea. 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 Nephrology was consulted of hypocalcemia, electrolyte imbalance, and CKD, Was found to have a calcium level of 6.6, potassium level of 2.8, creatinine of 1.74 and GFR of 37 ml/min. Patient drinks 12 oz of 94 proof GIN daily. Additional Remarks Somewhat fatigued today Review of Systems Ears, Nose, & Throat ENT Remarks hearing loss Respiratory Lungs: SOB, Cough, Sputum, Wheeze Respiratory Remarks Mild SOB Cardiovascular Cardiac Remarks denies CP Gastrointestinal GI Remarks No abdominal pain Objective Data Data Vital Signs Date Time Temp Pulse Resp B/P (MAP) Pulse Ox O2 Delivery O2 Flow Rate FiO2 10/31/17 12:00 75 10/31/17 12:00 98.7 75 20 147/66 (93) 96 10/31/17 10:00 66 10/31/17 08:05 98 Nasal Cannula 2.00 10/31/17 08:00 97.9 87 22 154/73 (100) 98 10/31/17 08:00 87 10/31/17 06:00 86 10/31/17 04:00 98.0 81 20 138/66 (90) 97 10/31/17 04:00 83 10/31/17 02:00 84 10/31/17 00:00 84 10/31/17 00:00 98.2 84 21 123/60 (81) 94 10/30/17 22:00 79 10/30/17 20:00 87 10/30/17 20:00 98.5 87 32 158/73 (101) 96 10/30/17 19:57 95 Nasal Cannula 2.00 10/30/17 18:00 81 19 141/66 (91) 96 10/30/17 18:00 81 18 17:00 98 10/30/17 17:00 98 24 138/63 (88) 94 10/30/17 16:00 97.9 98 21 133/59 (83) 93 10/30/17 16:00 98 10/30/17 15:00 87 18 150/70 (96) 96 10/30/17 15:00 87 10/30/17 14:00 96 23 162/76 (104) 95 10/30/17 14:00 96 -: 10/30/17 0535 10/30/17 0535 Tubes & Lines: Muñoz Physical Exam General Appearance: No Acute Distress Eyes Eye Exam: Pupils Equal Pulmonary Resp Exam: Breath Sounds Equal, Rhonchi, Decreased Bases Cardiology CV Exam: Regular Gastrointestinal/Abdomen GI Exam: Soft, Non-Tender, Bowel Sounds Present Genitourinary Exam: Flank Non-Tender Integumentary Skin Exam: Clear, Warm Extremeties Extremities Exam: Trace Edema Neurologic Neuro Exam: Sedated Assessment/Plan Problem List: (1) Chronic renal disease ICD Codes: N18.9 - Chronic kidney disease Status: Chronic Plan: Patient with history of right partial nephrectomy for tumor. Most likely has CKD from HTN or renal vascular disease Patient has BERE, possibly pre renal or ATN. Proteinuria noted Plan Creatinine is stable at 1.47 yesterday. No new labs today, check in AM. Indwelling Muñoz catheter remains with good UOP (2.4L/24 hours) Follow the urine out put and BMP. Fluids encouraged. Avoid Nephrotoxins. (2) Disorder of electrolytes ICD Codes: E87.8 - Other disorders of electrolyte and fluid balance, not elsewhere classified Status: Acute Plan: Calcium found to be at 6.6 and Potassium of 2.8 on admission Patient has received replacement and now WNL (3) COPD exacerbation ICD Codes: J44.1 - COPD exacerbation Status: Acute Plan: Continue O2 Mild SOB (4) Lactic acidosis ICD Codes: E87.2 - Acidosis Status: Acute Plan: Resolved (5) Hypertension ICD Codes: I10 - Essential (primary) hypertension Status: Chronic Plan: Well controlled (6) Weakness ICD Codes: R53.1 - Weakness Status: Acute Plan: Patient is very deconditioned and plan is for rehab Problem Qualifiers (1) Chronic renal disease: Qualified Codes: N18.3 - Chronic kidney disease, stage 3 (moderate) (2) Hypertension: Qualified Codes: I10 - Essential (primary) hypertension Yfn Cardenas MD Oct 31, 2017 13:13
[2017-10-31] MEDS ORDERED: SODIUM CHLORIDE 0.65% NASAL SPRAY 45 ML BTL EACH NARE PRN (14:00)
[2017-10-31 14:16] LABS: HEMATOCRIT 39.1 % (39.0-51.0); HEMOGLOBIN 13.5 GM/DL (13.0-17.0); MEAN CELL VOLUME 100.6 FL (80.0-100.0); MEAN CORPUSCULAR HEMOGLOBIN 34.6 PG (27.0-34.0); MEAN CORPUSCULAR HGB CONC 34.4 % (32.0-36.0); MEAN PLATELET VOLUME 9.3 FL (7.0-11.0); PLATELET COUNT 109 TH/MM3 (150-450); RED BLOOD COUNT 3.89 MIL/MM3 (4.50-5.90); RED CELL DISTRIBUTION WIDTH 13.2 % (11.6-17.2); WHITE BLOOD COUNT 8.5 TH/MM3 (4.0-11.0)
[2017-10-31] MEDS: SODIUM CHLOR 0.9% 1000 ML INJ 1,000 ML IV SCH (14:54)
[2017-10-31] MEDS: HEPARIN SODIUM - SQ 10,000 UNITS/ML VIAL SQ SCH ×2 (14:54→22:17)
[2017-10-31] MEDS: FLUCONAZOLE 100 MG PREMIX BAG 50 ML IV SCH (17:34)
[2017-10-31] MEDS: traZODone HCL 100 MG TAB PO SCH (22:10)
[2017-10-31] MEDS: TAMSULOSIN HCL 0.4 MG CAP PO SCH (22:10)
[2017-11-01] VITALS (11 sets, daily range): BP systolic 141–157; BP diastolic 66–74; PULSE 73–85; RESP 18–20; TEMP 97.9–98.6; O2SAT 93–96
[2017-11-01] MEDS: metroNIDAZOLE 500 MG TAB PO SCH ×5 (00:52→23:30)
[2017-11-01] MEDS: CEFEPIME INJ 1,000 MG in SODIUM CHLORIDE 0.9% INJ 100 ML IV SCH ×4 (00:52→23:31)
[2017-11-01] MEDS: ISOSORBIDE DINITRATE 10 MG TAB PO SCH ×3 (06:53→21:14)
[2017-11-01] MEDS: HEPARIN SODIUM - SQ 10,000 UNITS/ML VIAL SQ SCH ×3 (06:53→21:14)
[2017-11-01] MEDS: hydrALAZINE HCL 25 MG TAB PO SCH ×3 (06:53→21:13)
[2017-11-01] MEDS: ARTIFICIAL TEARS OPTH SOLN 15 ML BTL EACH EYE SCH ×3 (06:54→22:00)
[2017-11-01] MEDS: CHLORHEXIDINE 0.12% (ORAL KIT) 15 ML CUP MT SCH ×2 (08:00→20:00)
[2017-11-01] MEDS: RESP: BUDESONIDE 0.5 MG/2 ML NEB NEB SCH ×2 (08:39→20:55)
[2017-11-01] MEDS: FLUTICASONE 200 MCG/VILANTEROL 25 MCG INHALER INH SCH (09:00)
[2017-11-01] MEDS: LACTULOSE SYRUP 20 GM/30 ML CUP PO SCH ×4 (09:00→21:00)
[2017-11-01] MEDS: SODIUM CHLORIDE 0.9% FLUSH 10 ML FLUSH IV FLUSH SCH ×2 (09:00→21:00)
[2017-11-01] MEDS: DOCUSATE SODIUM 50 MG/SENNA 8.6 MG TAB PO SCH ×2 (09:00→21:00)
[2017-11-01] MEDS: DOXAZOSIN MESYLATE 4 MG TAB PO SCH (09:12)
[2017-11-01] MEDS: CALCIUM CARBONATE 1.25 GM (CA 500 MG) TAB PO SCH ×2 (09:12→21:13)
[2017-11-01] MEDS: NICOTINE 21 MG/24 HR PATCH T-DERMAL SCH (09:12)
[2017-11-01] MEDS: POLYETHYLENE GLYCOL 17 GM PKG OG-TUBE SCH ×2 (09:13→21:00)
[2017-11-01] MEDS: methylPREDNISolone SOD SUCC 40 MG/1 ML VIAL IV PUSH SCH ×2 (09:13→21:14)
[2017-11-01] MEDS: MULTIVITAMIN TAB PO SCH (09:13)
[2017-11-01] MEDS: cloNIDine HCL 0.1 MG TAB PO SCH ×2 (09:13→21:14)
[2017-11-01] MEDS: FINASTERIDE 5 MG TAB PO SCH (09:13)
[2017-11-01] MEDS: METOPROLOL TARTRATE 25 MG TAB PO SCH ×2 (09:13→21:14)
[2017-11-01] MEDS: THIAMINE HCL 100 MG TAB PO SCH (09:13)
[2017-11-01] MEDS: LANSOPRAZOLE SOLUTAB 30 MG TAB NG SCH (09:13)
[2017-11-01] MEDS: REMOVE OLD PATCH T-DERMAL SCH (09:14)
[2017-11-01] MEDS: guaiFENesin E.R. 600 MG TAB PO SCH ×2 (09:14→21:13)
[2017-11-01] MEDS: FOLIC ACID 1 MG TAB PO SCH (09:14)
[2017-11-01] MEDS: CARBAMIDE PEROXIDE 6.5% OTIC SOLN 15 ML BTL EACH EAR SCH ×2 (09:15→21:15)
[2017-11-01 10:41] LABS: HEMOGLOBIN 12.8 GM/DL (13.0-17.0); MEAN CELL VOLUME 100.9 FL (80.0-100.0); MEAN CORPUSCULAR HEMOGLOBIN 34.7 PG (27.0-34.0); MEAN CORPUSCULAR HGB CONC 34.4 % (32.0-36.0); MEAN PLATELET VOLUME 9.4 FL (7.0-11.0); PLATELET COUNT 117 TH/MM3 (150-450); RED BLOOD COUNT 3.67 MIL/MM3 (4.50-5.90); RED CELL DISTRIBUTION WIDTH 12.9 % (11.6-17.2); WHITE BLOOD COUNT 5.3 TH/MM3 (4.0-11.0)
[2017-11-01 11:01] LABS: BICARBONATE 19.5 MEQ/L (21.0-32.0); CALCIUM 8.4 MG/DL (8.5-10.1); CREATININE 1.46 MG/DL (0.60-1.30); MAGNESIUM 2.2 MG/DL (1.5-2.5)
[2017-11-01] MEDS: INSULIN NovoLIN REGULAR SUPPLEMENTAL SCALE SQ SCH ×4 (12:00→23:38)
[2017-11-01] MEDS: SODIUM CHLOR 0.9% 1000 ML INJ 1,000 ML IV SCH (14:00)
--- NOTE | 2017-11-01 14:00 | HHI.PR ---
Subjective Remarks Still with decreased BS at bases and sonorous rhonci bilat, nevertheless, he tells me breathing is improved. Objective Vital Signs Date Time Temp Pulse Resp B/P (MAP) Pulse Ox O2 Delivery O2 Flow Rate FiO2 11/01/17 12:00 98.6 76 20 149/71 (97) 95 11/01/17 10:24 76 11/01/17 09:03 85 151/70 (97) 11/01/17 08:43 94 Nasal Cannula 2.00 11/01/17 08:00 Nasal Cannula 2.00 11/01/17 04:00 73 11/01/17 04:00 98.0 82 18 157/74 (101) 94 11/01/17 00:00 73 11/01/17 00:00 97.9 80 18 141/66 (91) 93 10/31/17 20:00 101 10/31/17 20:00 Nasal Cannula 2.00 10/31/17 20:00 98.3 91 20 159/79 (105) 93 10/31/17 16:00 Nasal Cannula 2.00 10/31/17 14:20 Nasal Cannula 2.00 10/31/17 14:15 98.7 104 18 160/72 (101) 94 I/O 10/31/17 10/31/17 10/31/17 11/01/17 11/01/17 11/01/17 07:00 15:00 23:00 07:00 15:00 23:00 Intake Total 580 ml 260 ml 300 ml Output Total 1400 ml 800 ml 1400 ml Balance -820 ml -540 ml -1100 ml Intake Oral 100 ml 260 ml 200 ml IV Total 480 ml 100 ml Output Urine Total 1400 ml 800 ml 1400 ml # Bowel Movements 1 2 Result Diagram: 11/01/17 0845 11/01/17 0845 Imaging Last Impressions Chest X-Ray 10/29/17 0600 Signed Impressions: Service Date/Time: October 02:24 - CONCLUSION: Unchanged left effusion and left lower lobe infiltrate. Jose Roberto Benitez Jr., MD Renal Ultrasound 10/25/17 0000 Signed Impressions: Service Date/Time: Wednesday, October 25, 2017 16:26 - CONCLUSION: 1. Echogenic kidneys characteristic of medical renal disease. No hydronephrosis. Small renal cysts. Prostatic enlargement. Ole Eckert MD Chest CT 10/13/17 1313 Signed Impressions: Service Date/Time: Friday, October 13, 2017 15:15 - CONCLUSION: 1. Left upper lobe and left lower lobe consolidation likely infiltrate. Recommend treatment and followup to resolution. 2. Mild emphysema without mass or concerning nodule. 3. Minimal coronary artery calcifications. Allen Alexander MD Lower Extremity Ultrasound 10/13/17 0000 Signed Impressions: Service Date/Time: Friday, October 13, 2017 04:08 - CONCLUSION: 1. No sonographic evidence for right lower extremity DVT. Pedro Bunn MD Ankle X-Ray 10/13/17 0000 Signed Impressions: Service Date/Time: Friday, October 13, 2017 03:58 - CONCLUSION: 1. Diffuse soft tissue swelling without radiopaque foreign bodies, acute fracture or bony erosion. Pedro Bunn MD Objective Remarks General - Less lethargic Resp - Decreased BS at bases; CV - RRR without murmur, rub or gallop Abd - Soft and nontender MS - FROM without deformity, trace edema Medications and IVs Current Medications Medications (Trade) Dose Ordered Sig/Nayeli Route Start Time Stop Time Status Last Admin (Cardura) 8 mg DAILY PO 10/13/17 09:00 11/01/17 09:12 (Proscar) 5 mg DAILY PO 10/13/17 09:00 11/01/17 09:13 (Breo Ellipta 200-25 Inh) 1 puff DAILY INH 10/13/17 09:00 11/01/17 09:00 (Flomax) 0.4 mg HS PO 10/13/17 21:00 10/31/17 22:10 (Desyrel) 100 mg HS PO 10/13/17 21:00 10/31/17 22:10 (NS Flush) 2 ml UNSCH PRN IV FLUSH 10/13/17 06:00 (NS Flush) 2 ml BID IV FLUSH 10/13/17 09:00 10/31/17 22:18 (Narcan Inj) 0.4 mg UNSCH PRN IV PUSH 10/13/17 06:00 (Oscal) 500 mg Q12HR PO 10/13/17 09:00 11/01/17 09:12 (Pill Splitter) 1 ea UNSCH PRN OTHER 10/13/17 06:15 (Symbicort 160-4.5 Mcg Inh) 2 puff Q12HR INH 10/13/17 21:00 Future Hold 10/27/17 07:38 (Habitrol 21 Mg Patch.24 Hr) 1 patch DAILY T-DERMAL 10/15/17 09:00 11/01/17 09:12 Miscellaneous Information 1 DAILY T-DERMAL 10/15/17 09:00 11/01/17 09:14 (Lopressor) 25 mg BID PO 10/14/17 21:00 11/01/17 09:13 (Romazicon Inj) 0.2 mg Q1M PRN IV PUSH 10/15/17 10:00 (Ceftin) 500 mg Q12HR PO 10/23/17 21:00 Future Hold 10/25/17 08:21 (Peridex 0.12% Liq) 15 ml BID@08,20 MT 10/25/17 20:00 10/29/17 09:22 (Tears Naturale Opth Soln) 1 drop Q8HR EACH EYE 10/25/17 22:00 11/01/17 12:55 (Prevacid Odt) 30 mg DAILY NG 10/26/17 09:00 11/01/17 09:13 Cefepime HCl 1000 mg/Sodium Chloride 100 ml @ 200 mls/hr Q8H IV 10/25/17 16:00 11/01/17 09:12 (Flagyl) 500 mg Q6HR PO 10/25/17 18:00 11/01/17 12:55 Fluconazole/ Sodium Chloride 50 ml @ 50 mls/hr Q24H IV 10/25/17 17:00 10/31/17 17:34 (Albuterol Neb) 2.5 mg Q2HR NEB PRN NEB 10/25/17 16:15 10/30/17 19:57 (Elvie-Colace) 1 tab BID PO 10/25/17 21:00 10/30/17 20:40 (Pulmicort Respule Neb) 0.5 mg Q12HR NEB NEB 10/25/17 20:00 11/01/17 08:39 (D50w (Vial) Inj) 50 ml UNSCH PRN IV PUSH 10/25/17 17:00 (Glucagon Inj) 1 mg UNSCH PRN OTHER 10/25/17 17:00 (NovoLIN R SUPPLEMENTAL SCALE) 1 Q6HR SQ 10/25/17 18:00 10/27/17 23:54 (Vitamin B1) 100 mg DAILY PO 10/26/17 09:00 11/01/17 09:13 (Folate) 1 mg DAILY PO 10/26/17 09:00 11/01/17 09:14 (Theragran) 1 tab DAILY PO 10/26/17 09:00 11/01/17 09:13 Miscellaneous Information Patient in critical care unit? Ass... Q361D .XX 10/25/17 22:00 10/25/17 22:00 (Tylenol 650 Mg/ 20 ml Liq) 650 mg Q6H PRN PO 10/26/17 12:45 (Apresoline) 10 mg Q1H PRN PO 10/26/17 18:15 10/27/17 08:16 (Trandate Inj) 10 mg Q1H PRN IV PUSH 10/26/17 18:15 (Nitroglycerin 2% Oint) 2 inch Q6HR PRN TOPICAL 10/26/17 18:15 10/27/17 08:16 (Norvasc) 10 mg DAILY PO 10/27/17 09:00 11/01/17 09:14 (Apresoline) 25 mg Q8HR PO 10/27/17 14:00 11/01/17 12:54 (Isordil) 10 mg Q8HR PO 10/27/17 08:15 11/01/17 12:55 (Catapres) 0.1 mg BID PO 10/27/17 21:00 11/01/17 09:13 (Miralax) 17 gm BID OG-TUBE 10/27/17 21:00 11/01/17 09:13 (Lactulose Liq) 30 ml QID PO 10/28/17 18:00 10/31/17 17:34 (Mucinex Er) 600 mg BID PO 10/30/17 12:00 11/01/17 09:14 (Ambien) 5 mg HS PRN PO 10/30/17 12:45 10/30/17 22:01 (SoluMEDROL INJ) 40 mg BID IV PUSH 10/30/17 21:00 11/01/17 09:13 Sodium Chloride 1,000 ml @ 42 mls/hr [id number] IV 10/30/17 14:00 10/31/17 14:54 (Debrox 6.5% Otic) 5 drop Q12HR EACH EAR 10/31/17 10:30 11/01/17 09:15 ([place]) 2 spray Q4H PRN EACH NARE 10/31/17 14:00 (Heparin Inj) 5,000 units Q8HR SQ 10/31/17 14:00 11/01/17 12:55 Assessment and Plan Problem List: (1) Left lower lobe pneumonia ICD Codes: J18.1 - Lobar pneumonia, unspecified organism Status: Acute Plan: F/U Pulm recommendation and cont IV antibiotics. Breathing better (2) Alcohol abuse ICD Codes: F10.10 - Alcohol abuse Status: Chronic Plan: Cont support (3) COPD exacerbation ICD Codes: J44.1 - COPD exacerbation Status: Acute Plan: F/U Pulm recommendations and cont antibiotics (4) Hypertension ICD Codes: I10 - Essential (primary) hypertension Status: Chronic Plan: Cont current regimen with PRN meds for SBP over 160 mm/Hg (5) Chronic renal disease ICD Codes: N18.9 - Chronic kidney disease Status: Chronic Plan: Avoid nephrotoxic agents and cont to monitor closely. F/U renal recommendations. Assessment and Plan Cont treatment and F/U [employer] study and recommendations. Cont antibiotics and Pulm recommendations. PT and OT consulted for eval for rehab. Discussed Condition With patient Discharge Planning SNF Problem Qualifiers (1) Left lower lobe pneumonia: Qualified Codes: J69.0 - Pneumonitis due to inhalation of food and vomit (2) Hypertension: Qualified Codes: I10 - Essential (primary) hypertension (3) Chronic renal disease: Qualified Codes: N18.3 - Chronic kidney disease, stage 3 (moderate) Donovan Villeda Nov 01, 2017 14:00
[2017-11-01] MEDS: FLUCONAZOLE 100 MG PREMIX BAG 50 ML IV SCH (16:49)
--- NOTE | 2017-11-01 19:40 | HHI.PR ---
Subjective Remarks Patient denies chest pain, shortness of breath much improved. The patient is on 2 L nasal cannula. States he still coughing a little bit. A febrile. Objective Vitals Vital Signs Date Time Temp Pulse Resp B/P (MAP) Pulse Ox O2 Delivery O2 Flow Rate FiO2 11/01/17 16:00 98.2 74 20 146/70 (95) 96 11/01/17 16:00 Nasal Cannula 2.00 11/01/17 12:00 Nasal Cannula 2.00 11/01/17 12:00 98.6 76 20 149/71 (97) 95 11/01/17 12:00 73 11/01/17 10:24 76 11/01/17 09:03 85 151/70 (97) 11/01/17 08:43 94 Nasal Cannula 2.00 11/01/17 08:00 Nasal Cannula 2.00 11/01/17 04:00 73 11/01/17 04:00 98.0 82 18 157/74 (101) 94 11/01/17 00:00 73 11/01/17 00:00 97.9 80 18 141/66 (91) 93 10/31/17 20:00 101 10/31/17 20:00 Nasal Cannula 2.00 10/31/17 20:00 98.3 91 20 159/79 (105) 93 I/O 10/31/17 10/31/17 10/31/17 11/01/17 11/01/17 11/01/17 07:00 15:00 23:00 07:00 15:00 23:00 Intake Total 580 ml 260 ml 300 ml 480 ml Output Total 1400 ml 800 ml 1400 ml 800 ml Balance -820 ml -540 ml -1100 ml -320 ml Intake Oral 100 ml 260 ml 200 ml 480 ml IV Total 480 ml 100 ml Output Urine Total 1400 ml 800 ml 1400 ml 800 ml # Bowel Movements 1 2 1 Result Diagram: 11/01/17 0845 11/01/17 0845 Imaging Last Impressions Chest X-Ray 10/29/17 0600 Signed Impressions: Service Date/Time: October 02:24 - CONCLUSION: Unchanged left effusion and left lower lobe infiltrate. Jose Roberto Benitez Jr., MD Renal Ultrasound 10/25/17 0000 Signed Impressions: Service Date/Time: Wednesday, October 25, 2017 16:26 - CONCLUSION: 1. Echogenic kidneys characteristic of medical renal disease. No hydronephrosis. Small renal cysts. Prostatic enlargement. Ole Eckert MD Chest CT 10/13/17 1313 Signed Impressions: Service Date/Time: Friday, October 13, 2017 15:15 - CONCLUSION: 1. Left upper lobe and left lower lobe consolidation likely infiltrate. Recommend treatment and followup to resolution. 2. Mild emphysema without mass or concerning nodule. 3. Minimal coronary artery calcifications. Allen Alexander MD Lower Extremity Ultrasound 10/13/17 0000 Signed Impressions: Service Date/Time: Friday, October 13, 2017 04:08 - CONCLUSION: 1. No sonographic evidence for right lower extremity DVT. Pedro Bunn MD Ankle X-Ray 10/13/17 0000 Signed Impressions: Service Date/Time: Friday, October 13, 2017 03:58 - CONCLUSION: 1. Diffuse soft tissue swelling without radiopaque foreign bodies, acute fracture or bony erosion. Pedro Bunn MD Objective Remarks AAOx3 nad Decreased breath sounf on left lower lobe. There is mild diffuse expiratory wheezing bilaterally. Abdomen is soft, nontender nondistended. There is no edema in the lower extremities. Patient is awake alert oriented 3, follows commands, moves all extremities. Muscle strength is 5/5 in all extremities. Procedures Intubation/ extubation Medications and IVs Current Medications Medications (Trade) Dose Ordered Sig/Nayeli Route Start Time Stop Time Status Last Admin (Cardura) 8 mg DAILY PO 10/13/17 09:00 11/01/17 09:12 (Proscar) 5 mg DAILY PO 10/13/17 09:00 11/01/17 09:13 (Breo Ellipta 200-25 Inh) 1 puff DAILY INH 10/13/17 09:00 11/01/17 09:00 (Flomax) 0.4 mg HS PO 10/13/17 21:00 10/31/17 22:10 (Desyrel) 100 mg HS PO 10/13/17 21:00 10/31/17 22:10 (NS Flush) 2 ml UNSCH PRN IV FLUSH 10/13/17 06:00 (NS Flush) 2 ml BID IV FLUSH 10/13/17 09:00 10/31/17 22:18 (Narcan Inj) 0.4 mg UNSCH PRN IV PUSH 10/13/17 06:00 (Oscal) 500 mg Q12HR PO 10/13/17 09:00 11/01/17 09:12 (Pill Splitter) 1 ea UNSCH PRN OTHER 10/13/17 06:15 (Symbicort 160-4.5 Mcg Inh) 2 puff Q12HR INH 10/13/17 21:00 Future Hold 10/27/17 07:38 (Habitrol 21 Mg Patch.24 Hr) 1 patch DAILY T-DERMAL 10/15/17 09:00 11/01/17 09:12 Miscellaneous Information 1 DAILY T-DERMAL 10/15/17 09:00 11/01/17 09:14 (Lopressor) 25 mg BID PO 10/14/17 21:00 11/01/17 09:13 (Romazicon Inj) 0.2 mg Q1M PRN IV PUSH 10/15/17 10:00 (Ceftin) 500 mg Q12HR PO 10/23/17 21:00 Future Hold 10/25/17 08:21 (Peridex 0.12% Liq) 15 ml BID@08,20 MT 10/25/17 20:00 10/29/17 09:22 (Tears Naturale Opth Soln) 1 drop Q8HR EACH EYE 10/25/17 22:00 11/01/17 12:55 (Prevacid Odt) 30 mg DAILY NG 10/26/17 09:00 11/01/17 09:13 Cefepime HCl 1000 mg/Sodium Chloride 100 ml @ 200 mls/hr Q8H IV 10/25/17 16:00 11/01/17 16:49 (Flagyl) 500 mg Q6HR PO 10/25/17 18:00 11/01/17 16:49 Fluconazole/ Sodium Chloride 50 ml @ 50 mls/hr Q24H IV 10/25/17 17:00 11/01/17 16:49 (Albuterol Neb) 2.5 mg Q2HR NEB PRN NEB 10/25/17 16:15 10/30/17 19:57 (Elvie-Colace) 1 tab BID PO 10/25/17 21:00 10/30/17 20:40 (Pulmicort Respule Neb) 0.5 mg Q12HR NEB NEB 10/25/17 20:00 11/01/17 08:39 (D50w (Vial) Inj) 50 ml UNSCH PRN IV PUSH 10/25/17 17:00 (Glucagon Inj) 1 mg UNSCH PRN OTHER 10/25/17 17:00 (NovoLIN R SUPPLEMENTAL SCALE) 1 Q6HR SQ 10/25/17 18:00 10/27/17 23:54 (Vitamin B1) 100 mg DAILY PO 10/26/17 09:00 11/01/17 09:13 (Folate) 1 mg DAILY PO 10/26/17 09:00 11/01/17 09:14 (Theragran) 1 tab DAILY PO 10/26/17 09:00 11/01/17 09:13 Miscellaneous Information Patient in critical care unit? Ass... Q361D .XX 10/25/17 22:00 10/25/17 22:00 (Tylenol 650 Mg/ 20 ml Liq) 650 mg Q6H PRN PO 10/26/17 12:45 (Apresoline) 10 mg Q1H PRN PO 10/26/17 18:15 10/27/17 08:16 (Trandate Inj) 10 mg Q1H PRN IV PUSH 10/26/17 18:15 (Nitroglycerin 2% Oint) 2 inch Q6HR PRN TOPICAL 10/26/17 18:15 10/27/17 08:16 (Norvasc) 10 mg DAILY PO 10/27/17 09:00 11/01/17 09:14 (Apresoline) 25 mg Q8HR PO 10/27/17 14:00 11/01/17 12:54 (Isordil) 10 mg Q8HR PO 10/27/17 08:15 11/01/17 12:55 (Catapres) 0.1 mg BID PO 10/27/17 21:00 11/01/17 09:13 (Miralax) 17 gm BID OG-TUBE 10/27/17 21:00 11/01/17 09:13 (Lactulose Liq) 30 ml QID PO 10/28/17 18:00 10/31/17 17:34 (Mucinex Er) 600 mg BID PO 10/30/17 12:00 11/01/17 09:14 (Ambien) 5 mg HS PRN PO 10/30/17 12:45 10/30/17 22:01 (SoluMEDROL INJ) 40 mg BID IV PUSH 10/30/17 21:00 11/01/17 09:13 Sodium Chloride 1,000 ml @ 42 mls/hr [id number] IV 10/30/17 14:00 11/01/17 14:00 (Debrox 6.5% Otic) 5 drop Q12HR EACH EAR 10/31/17 10:30 11/01/17 09:15 ([place] Fu[place]) 2 spray Q4H PRN EACH NARE 10/31/17 14:00 (Heparin Inj) 5,000 units Q8HR SQ 10/31/17 14:00 11/01/17 12:55 A/P Problem List: (1) Acute hypoxemic respiratory failure ICD Code: J96.01 - Acute respiratory failure with hypoxia Plan: Status post intubation, mechanical ventilation and extubated on 10/28. Due to left lower lobe pneumonia with pleural effusion. Continue oxygen to keep oxygen saturation more than 92%. Pulmonary following, appreciate assistance. Continue IV cefepime and IV Flagyl. Continue bronchodilators and DC Solu-Medrol and start oral prednisone. (2) CKD (chronic kidney disease), stage III ICD Code: N18.3 - Chronic kidney disease, stage 3 (moderate) Plan: Nephrology consulted. Appreciate recommendations. Renal ultrasound shows echogenic kidneys characteristic of medical renal disease. No hydronephrosis. A small renal cyst. Prostatic enlargement. Patient has likely CKD from hypertension and renal vascular disease. AKA possibly prerenal or ATN. Creatinine is slightly down from 1.69 down to 1.46. Follow the urine out put and BMP. Fluids encouraged. Avoid Nephrotoxins. (3) Alcohol abuse ICD Code: F10.10 - Alcohol abuse Status: Chronic Plan: Continues with CIWA protocol. There is no evidence of alcohol withdrawal. (4) Depression ICD Code: F32.9 - Major depressive disorder, single episode, unspecified Plan: This is probably reactive depression to current situation. The patient denies any suicidal or homicidal ideation. The patient was offered psychiatric consultation which he refuses. (5) Weakness ICD Code: R53.1 - Weakness Plan: PT consulted, recommends PT at rehab. OT consulted, recommends OT at rehab. (6) Hard of hearing ICD Code: H91.90 - Unspecified hearing loss, unspecified ear Plan: Patient did not complain of decreased hearing today. Follow-up with ENT as an outpatient. Continue Debrox otic drops. Continue [place] nasal spray. (7) COPD with exacerbation ICD Code: J44.1 - Chronic obstructive pulmonary disease with (acute) exacerbation Plan: Continue IV antibiotics and steroids as above. Continue nebulizers and supplemental oxygen. (8) HTN (hypertension) ICD Code: I10 - Essential (primary) hypertension Plan: Blood pressure seems to be elevated in the systolic 150s. However improving. Continue amlodipine 10 mg p.o. daily. On doxazosin 8 mg p.o. daily. On hydralazine 25 mg p.o. every 8 hours. Metoprolol 25 mg p.o. twice daily. Continue same dose of medications and continue to monitor vital signs. (9) H/O renal cell carcinoma ICD Code: Z85.528 - Personal history of other malignant neoplasm of kidney Plan: Status post right partial nephrectomy/nephrostomy tube placement. Renal ultrasound as above. Nephrology consulted and following. (10) BPH (benign prostatic hyperplasia) ICD Code: N40.0 - Benign prostatic hyperplasia without lower urinary tract symptoms Status: Acute Plan: Continue Flomax. Continue Muñoz catheter. (11) BERE (acute kidney injury) ICD Code: N17.9 - Acute kidney failure, unspecified Plan: Creatinine is slightly improved compared to yesterday. Nephrology consulted. Continue IV fluids as per nephrology. Assessment and Plan DVT prophylaxis: Heparin subcutaneously. GI prophylaxis: On PPI. Discharge Planning Discharge pending nephrology clearance. Problem Qualifiers (1) Depression: Qualified Codes: F32.9 - Major depressive disorder, single episode, unspecified (2) Hard of hearing: Qualified Codes: H91.93 - Unspecified hearing loss, bilateral (3) HTN (hypertension): Qualified Codes: I10 - Essential (primary) hypertension (4) BPH (benign prostatic hyperplasia): Qualified Codes: N40.0 - Benign prostatic hyperplasia without lower urinary tract symptoms Wilfred Calvo MD Nov 01, 2017 19:40
[2017-11-01] MEDS: TAMSULOSIN HCL 0.4 MG CAP PO SCH (21:13)
[2017-11-01] MEDS: traZODone HCL 100 MG TAB PO SCH (21:13)
[2017-11-01] MEDS: ZOLPIDEM TARTRATE 5 MG TAB PO PRN (21:14)
[2017-11-02] VITALS (9 sets, daily range): BP systolic 131–150; BP diastolic 63–71; PULSE 65–89; RESP 16–18; TEMP 97.4–98.5; O2SAT 93–98
[2017-11-02] MEDS: metroNIDAZOLE 500 MG TAB PO SCH ×3 (05:22→17:19)
[2017-11-02] MEDS: hydrALAZINE HCL 25 MG TAB PO SCH ×3 (05:22→21:09)
[2017-11-02] MEDS: ISOSORBIDE DINITRATE 10 MG TAB PO SCH ×3 (05:23→21:10)
[2017-11-02] MEDS: ARTIFICIAL TEARS OPTH SOLN 15 ML BTL EACH EYE SCH ×3 (05:23→21:10)
[2017-11-02] MEDS: HEPARIN SODIUM - SQ 10,000 UNITS/ML VIAL SQ SCH ×3 (05:23→21:10)
[2017-11-02] MEDS: INSULIN NovoLIN REGULAR SUPPLEMENTAL SCALE SQ SCH ×3 (06:13→18:00)
[2017-11-02] MEDS: CHLORHEXIDINE 0.12% (ORAL KIT) 15 ML CUP MT SCH ×2 (08:00→20:00)
[2017-11-02] MEDS: RESP: BUDESONIDE 0.5 MG/2 ML NEB NEB SCH (08:57)
[2017-11-02] MEDS: SODIUM CHLORIDE 0.9% FLUSH 10 ML FLUSH IV FLUSH SCH ×2 (09:00→21:30)
[2017-11-02] MEDS: POLYETHYLENE GLYCOL 17 GM PKG OG-TUBE SCH ×2 (09:00→21:00)
[2017-11-02] MEDS: LACTULOSE SYRUP 20 GM/30 ML CUP PO SCH ×4 (09:00→21:00)
[2017-11-02] MEDS: DOCUSATE SODIUM 50 MG/SENNA 8.6 MG TAB PO SCH ×2 (09:00→21:00)
[2017-11-02] MEDS: REMOVE OLD PATCH T-DERMAL SCH (09:00)
[2017-11-02] MEDS: DOXAZOSIN MESYLATE 4 MG TAB PO SCH (09:25)
[2017-11-02] MEDS: THIAMINE HCL 100 MG TAB PO SCH (09:25)
[2017-11-02] MEDS: cloNIDine HCL 0.1 MG TAB PO SCH ×2 (09:26→21:09)
[2017-11-02] MEDS: LANSOPRAZOLE SOLUTAB 30 MG TAB NG SCH (09:26)
[2017-11-02] MEDS: CEFEPIME INJ 1,000 MG in SODIUM CHLORIDE 0.9% INJ 100 ML IV SCH ×2 (09:26→17:19)
[2017-11-02] MEDS: FINASTERIDE 5 MG TAB PO SCH (09:26)
[2017-11-02] MEDS: MULTIVITAMIN TAB PO SCH (09:26)
[2017-11-02] MEDS: CALCIUM CARBONATE 1.25 GM (CA 500 MG) TAB PO SCH ×2 (09:26→21:10)
[2017-11-02] MEDS: FOLIC ACID 1 MG TAB PO SCH (09:26)
[2017-11-02] MEDS: guaiFENesin E.R. 600 MG TAB PO SCH ×2 (09:26→21:09)
[2017-11-02] MEDS: methylPREDNISolone SOD SUCC 40 MG/1 ML VIAL IV PUSH SCH (09:27)
[2017-11-02] MEDS: METOPROLOL TARTRATE 25 MG TAB PO SCH ×2 (09:38→21:09)
[2017-11-02] MEDS: NICOTINE 21 MG/24 HR PATCH T-DERMAL SCH (09:39)
[2017-11-02] MEDS: CARBAMIDE PEROXIDE 6.5% OTIC SOLN 15 ML BTL EACH EAR SCH ×2 (09:41→21:30)
[2017-11-02] MEDS: FLUTICASONE 200 MCG/VILANTEROL 25 MCG INHALER INH SCH (09:41)
--- NOTE | 2017-11-02 10:16 | HHI.PR ---
Subjective Remarks Voices he is tired of being here, is depressed Objective Vital Signs Date Time Temp Pulse Resp B/P (MAP) Pulse Ox O2 Delivery O2 Flow Rate FiO2 11/02/17 08:00 98.2 74 18 131/63 (85) 98 11/02/17 04:10 82 11/02/17 04:00 Nasal Cannula 2.00 11/02/17 04:00 98.3 76 16 150/70 (96) 96 11/02/17 00:40 66 11/02/17 00:00 Nasal Cannula 2.00 11/02/17 00:00 98.3 73 18 139/67 (91) 93 11/01/17 20:55 95 Nasal Cannula 2.00 11/01/17 20:21 77 11/01/17 20:00 97.9 83 20 157/72 (100) 93 11/01/17 20:00 Nasal Cannula 2.00 11/01/17 16:25 79 11/01/17 16:00 98.2 74 20 146/70 (95) 96 11/01/17 16:00 Nasal Cannula 2.00 11/01/17 12:00 Nasal Cannula 2.00 11/01/17 12:00 98.6 76 20 149/71 (97) 95 11/01/17 12:00 73 11/01/17 10:24 76 I/O 11/01/17 11/01/17 11/01/17 11/02/17 11/02/17 11/02/17 07:00 15:00 23:00 07:00 15:00 23:00 Intake Total 300 ml 480 ml 340 ml Output Total 1400 ml 800 ml 750 ml Balance -1100 ml -320 ml -410 ml Intake Oral 200 ml 480 ml 240 ml IV Total 100 ml 100 ml Output Urine Total 1400 ml 800 ml 750 ml # Bowel Movements 2 1 1 Result Diagram: 11/01/17 0845 11/01/17 0845 Objective Remarks GENERAL: This is a well-nourished, elderly male on 2liters SKIN: No rashes, ecchymosis. HEAD: Atraumatic. Normocephalic. No temporal or scalp tenderness. EYES: Pupils equal round and reactive. Extraocular motions intact. No scleral icterus. No injection or drainage. ENT: Nose without bleeding, purulent drainage NECK: Trachea midline. No JVD CARDIOVASCULAR: Regular rate and rhythm without murmurs, gallops, or rubs. RESPIRATORY: Equal B/l, scattered rhonchi, wheezes GASTROINTESTINAL: Abdomen soft, non-tender, nondistended. MUSCULOSKELETAL: trace edema NEUROLOGICAL: alert oriented, annoyed r/t long hospital stay Medications and IVs Current Medications Medications (Trade) Dose Ordered Sig/Nayeli Route Start Time Stop Time Status Last Admin (Cardura) 8 mg DAILY PO 10/13/17 09:00 11/02/17 09:25 (Proscar) 5 mg DAILY PO 10/13/17 09:00 11/02/17 09:26 (Breo Ellipta 200-25 Inh) 1 puff DAILY INH 10/13/17 09:00 11/02/17 09:41 (Flomax) 0.4 mg HS PO 10/13/17 21:00 11/01/17 21:13 (Desyrel) 100 mg HS PO 10/13/17 21:00 11/01/17 21:13 (NS Flush) 2 ml UNSCH PRN IV FLUSH 10/13/17 06:00 (NS Flush) 2 ml BID IV FLUSH 10/13/17 09:00 10/31/17 22:18 (Narcan Inj) 0.4 mg UNSCH PRN IV PUSH 10/13/17 06:00 (Oscal) 500 mg Q12HR PO 10/13/17 09:00 11/02/17 09:26 (Pill Splitter) 1 ea UNSCH PRN OTHER 10/13/17 06:15 (Symbicort 160-4.5 Mcg Inh) 2 puff Q12HR INH 10/13/17 21:00 Future Hold 10/27/17 07:38 (Habitrol 21 Mg Patch.24 Hr) 1 patch DAILY T-DERMAL 10/15/17 09:00 11/02/17 09:39 Miscellaneous Information 1 DAILY T-DERMAL 10/15/17 09:00 11/02/17 09:00 (Lopressor) 25 mg BID PO 10/14/17 21:00 11/02/17 09:38 (Romazicon Inj) 0.2 mg Q1M PRN IV PUSH 10/15/17 10:00 (Ceftin) 500 mg Q12HR PO 10/23/17 21:00 Future Hold 10/25/17 08:21 (Peridex 0.12% Liq) 15 ml BID@08,20 MT 10/25/17 20:00 11/01/17 20:00 (Tears Naturale Opth Soln) 1 drop Q8HR EACH EYE 10/25/17 22:00 11/02/17 05:23 (Prevacid Odt) 30 mg DAILY NG 10/26/17 09:00 11/02/17 09:26 Cefepime HCl 1000 mg/Sodium Chloride 100 ml @ 200 mls/hr Q8H IV 10/25/17 16:00 11/02/17 09:26 (Flagyl) 500 mg Q6HR PO 10/25/17 18:00 11/02/17 05:22 Fluconazole/ Sodium Chloride 50 ml @ 50 mls/hr Q24H IV 10/25/17 17:00 11/01/17 16:49 (Albuterol Neb) 2.5 mg Q2HR NEB PRN NEB 10/25/17 16:15 10/30/17 19:57 (Elvie-Colace) 1 tab BID PO 10/25/17 21:00 10/30/17 20:40 (Pulmicort Respule Neb) 0.5 mg Q12HR NEB NEB 10/25/17 20:00 11/01/17 20:55 (D50w (Vial) Inj) 50 ml UNSCH PRN IV PUSH 10/25/17 17:00 (Glucagon Inj) 1 mg UNSCH PRN OTHER 10/25/17 17:00 (NovoLIN R SUPPLEMENTAL SCALE) 1 Q6HR SQ 10/25/17 18:00 11/02/17 06:13 (Vitamin B1) 100 mg DAILY PO 10/26/17 09:00 11/02/17 09:25 (Folate) 1 mg DAILY PO 10/26/17 09:00 11/02/17 09:26 (Theragran) 1 tab DAILY PO 10/26/17 09:00 11/02/17 09:26 Miscellaneous Information Patient in critical care unit? Ass... Q361D .XX 10/25/17 22:00 10/25/17 22:00 (Tylenol 650 Mg/ 20 ml Liq) 650 mg Q6H PRN PO 10/26/17 12:45 (Apresoline) 10 mg Q1H PRN PO 10/26/17 18:15 10/27/17 08:16 (Trandate Inj) 10 mg Q1H PRN IV PUSH 10/26/17 18:15 (Nitroglycerin 2% Oint) 2 inch Q6HR PRN TOPICAL 10/26/17 18:15 10/27/17 08:16 (Norvasc) 10 mg DAILY PO 10/27/17 09:00 11/02/17 09:26 (Apresoline) 25 mg Q8HR PO 10/27/17 14:00 11/02/17 05:22 (Isordil) 10 mg Q8HR PO 10/27/17 08:15 11/02/17 05:23 (Catapres) 0.1 mg BID PO 10/27/17 21:00 11/02/17 09:26 (Miralax) 17 gm BID OG-TUBE 10/27/17 21:00 11/01/17 09:13 (Lactulose Liq) 30 ml QID PO 10/28/17 18:00 10/31/17 17:34 (Mucinex Er) 600 mg BID PO 10/30/17 12:00 11/02/17 09:26 (Ambien) 5 mg HS PRN PO 10/30/17 12:45 11/01/17 21:14 (SoluMEDROL INJ) 40 mg BID IV PUSH 10/30/17 21:00 11/02/17 09:27 Sodium Chloride 1,000 ml @ 42 mls/hr [id number] IV 10/30/17 14:00 11/01/17 14:00 (Debrox 6.5% Otic) 5 drop Q12HR EACH EAR 10/31/17 10:30 11/02/17 09:41 ([place]) 2 spray Q4H PRN EACH NARE 10/31/17 14:00 (Heparin Inj) 5,000 units Q8HR SQ 10/31/17 14:00 11/02/17 05:23 Assessment and Plan Problem List: (1) Respiratory failure ICD Codes: J96.90 - Respiratory failure, unspecified, unspecified whether with hypoxia or hypercapnia Plan: Resp failure R/T LLL PNA Extubated on 10/28, 02 2l, pulmonary following, follow recommendations. Currently on Ceftipine and Flagyl, switch to PO for pending DC in am Maintain sat's >90, Bronchodilator. (2) COPD exacerbation ICD Codes: J44.1 - COPD exacerbation Status: Acute Plan: Followed by pulmonary Bronchodilators, wean Solu-medrol, start prednisone, per pulmonary (3) Chronic renal disease ICD Codes: N18.9 - Chronic kidney disease Status: Chronic Plan: Renal following, History of nephrectomy r/t carcinoma. Avoid nephro toxins Renal cleared for DC (4) Hypertension ICD Codes: I10 - Essential (primary) hypertension Status: Chronic Plan: On multiple agents. Under better control cont to monitor (5) Alcohol abuse ICD Codes: F10.10 - Alcohol abuse Status: Chronic Plan: CIWA protocol (6) Weakness ICD Codes: R53.1 - Weakness Status: Acute Plan: will need snf/rehab at [place] Assessment and Plan 10/29/17 In bed no apparent distress, Voices he is [place] since coming off vent, believe it is medicated related. Sat's are maintained on Vent mask continue with rhonchi and wheezes, look to Dc upcoming days if cont to improve. He is accepted at [facility]. 10/30/17 Having coughing fits, with elevated HR. Thick mucous. Mucinex added. he voices he was up with therapy standing only for 1 minute, very weak. Mood starting to be affected r/t long hospitalization. 11/02/17- Patient very upset of long admission. Depressed due to long hospital stay, Wants Discharged. Will Dc in am once cleared by pulmonary.He is on Trazadone Currently, he will be seen by Psych in Rehab. Problem Qualifiers (1) Chronic renal disease: Qualified Codes: N18.3 - Chronic kidney disease, stage 3 (moderate) (2) Hypertension: Qualified Codes: I10 - Essential (primary) hypertension Sulma Macias Nov 02, 2017 10:16
--- NOTE | 2017-11-02 10:20 | HHI.NPPN ---
Subjective Complaints: Shortness of Breath General Problems: Edema, Hypertension Renal Failure: Chronic, Acute History of Present Illness Patient is a 72-year-old male presents to the emergency department by EMS transport from home s/p fall after getting out of bed and being to weak to get up. Patient states he has chronic COPD and this morning was getting up out of bed without his walker to go to the bathroom and noticed that when he stood up that both of his legs are weak causing him to fall to the floor. Denies any fevers, CP, nausea, vomiting or diarrhea. 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 Nephrology was consulted of hypocalcemia, electrolyte imbalance, and CKD, Was found to have a calcium level of 6.6, potassium level of 2.8, creatinine of 1.74 and GFR of 37 ml/min. Patient drinks 12 oz of 94 proof GIN daily. Additional Remarks Patient is agitated this morning. Reports feeling depressed. (Raysa Bhakta) Review of Systems Ears, Nose, & Throat ENT Remarks hearing loss (Raysa Bhakta) Respiratory Respiratory Remarks Denies SOB (Raysa Bhakta) Cardiovascular Cardiac Remarks denies CP (Raysa Bhakta) Gastrointestinal GI Remarks No abdominal pain (Raysa Bhakta) Objective Data Data Vital Signs Date Time Temp Pulse Resp B/P (MAP) Pulse Ox O2 Delivery O2 Flow Rate FiO2 11/02/17 08:00 98.2 74 18 131/63 (85) 98 11/02/17 04:10 82 11/02/17 04:00 Nasal Cannula 2.00 11/02/17 04:00 98.3 76 16 150/70 (96) 96 11/02/17 00:40 66 11/02/17 00:00 Nasal Cannula 2.00 11/02/17 00:00 98.3 73 18 139/67 (91) 93 11/01/17 20:55 95 Nasal Cannula 2.00 11/01/17 20:21 77 11/01/17 20:00 97.9 83 20 157/72 (100) 93 11/01/17 20:00 Nasal Cannula 2.00 11/01/17 16:25 79 11/01/17 16:00 98.2 74 20 146/70 (95) 96 11/01/17 16:00 Nasal Cannula 2.00 11/01/17 12:00 Nasal Cannula 2.00 11/01/17 12:00 98.6 76 20 149/71 (97) 95 11/01/17 12:00 73 11/01/17 10:24 76 (Raysa Bhakta) -: 11/01/17 0845 11/01/17 0845 Physical Exam General Appearance: No Acute Distress, Anxious (Raysa Bhakta) Eyes Eye Exam: Pupils Equal (Raysa Bhakta) Pulmonary Resp Exam: Breath Sounds Equal, Rhonchi, Decreased Bases (Raysa Bhakta) Cardiology CV Exam: Regular (Raysa Bhakta) Gastrointestinal/Abdomen GI Exam: Soft, Non-Tender, Bowel Sounds Present (Raysa Bhakta) Genitourinary Exam: Flank Non-Tender (Raysa Bhakta) Integumentary Skin Exam: Clear, Warm Skin Remarks bruising present (Raysa Bhakta) Extremeties Extremities Exam: Trace Edema (Raysa Bhakta) Neurologic Neuro Exam: Sedated (Raysa Bhakta) Assessment/Plan Problem List: (1) Chronic renal disease ICD Codes: N18.9 - Chronic kidney disease Status: Chronic Plan: Patient with history of right partial nephrectomy for tumor. Most likely has CKD from HTN or renal vascular disease Patient has BERE, possibly pre renal or ATN. Proteinuria noted Plan Creatinine is stable Follow the urine out put and BMP. Fluids encouraged. Avoid Nephrotoxins Cleared for discharge per renal. (2) Disorder of electrolytes ICD Codes: E87.8 - Other disorders of electrolyte and fluid balance, not elsewhere classified Status: Acute Plan: Calcium found to be at 6.6 and Potassium of 2.8 on admission Patient has received replacement and now WNL (3) COPD exacerbation ICD Codes: J44.1 - COPD exacerbation Status: Acute Plan: Continue O2 Mild SOB (4) Lactic acidosis ICD Codes: E87.2 - Acidosis Status: Acute Plan: Resolved (5) Hypertension ICD Codes: I10 - Essential (primary) hypertension Status: Chronic Plan: Well controlled (6) Weakness ICD Codes: R53.1 - Weakness Status: Acute Plan: Patient is very deconditioned and plan is for rehab (Raysa Bhakta) Problem List: (1) Chronic renal disease ICD Codes: N18.9 - Chronic kidney disease Status: Chronic Plan: Patient with history of right partial nephrectomy for tumor. Most likely has CKD from HTN or renal vascular disease Patient has BERE, possibly pre renal or ATN. Proteinuria noted Plan Creatinine is stable Follow the urine out put and BMP. Fluids encouraged. Avoid Nephrotoxins Cleared for discharge per renal. Patient seen and examined, agree with above. Creatinine is stable. (2) Disorder of electrolytes ICD Codes: E87.8 - Other disorders of electrolyte and fluid balance, not elsewhere classified Status: Acute Plan: Calcium found to be at 6.6 and Potassium of 2.8 on admission Patient has received replacement and now WNL (3) COPD exacerbation ICD Codes: J44.1 - COPD exacerbation Status: Acute Plan: Continue O2 Mild SOB (4) Lactic acidosis ICD Codes: E87.2 - Acidosis Status: Acute Plan: Resolved (5) Hypertension ICD Codes: I10 - Essential (primary) hypertension Status: Chronic Plan: Well controlled (6) Weakness ICD Codes: R53.1 - Weakness Status: Acute Plan: Patient is very deconditioned and plan is for rehab (Roberto Benitze MD) Problem Qualifiers (1) Chronic renal disease: Qualified Codes: N18.3 - Chronic kidney disease, stage 3 (moderate) (2) Hypertension: Qualified Codes: I10 - Essential (primary) hypertension Raysa Bhakta Nov 02, 2017 10:20 Roberto Benitez MD Nov 02, 2017 19:04
[2017-11-02] MEDS: SODIUM CHLOR 0.9% 1000 ML INJ 1,000 ML IV SCH (13:27)
[2017-11-02] MEDS: RESP: ALBUTEROL 2.5 MG/3 ML NEB (PRN) NEB (16:21)
[2017-11-02] MEDS: FLUCONAZOLE 100 MG PREMIX BAG 50 ML IV SCH (18:35)
[2017-11-02 18:36] LABS: AUTOMATED NEUTROPHIL # 3.1 TH/MM3 (1.8-7.7); BASOPHIL % 0.1 % (0.0-2.0); EOSINOPHIL % 0.7 % (0.0-4.0); HEMATOCRIT 36.1 % (39.0-51.0); HEMOGLOBIN 12.3 GM/DL (13.0-17.0); LYMPH % 19.8 % (9.0-44.0); LYMPHOCYTE # 0.9 TH/MM3 (1.0-4.8); MEAN CELL VOLUME 101.1 FL (80.0-100.0); MEAN CORPUSCULAR HEMOGLOBIN 34.4 PG (27.0-34.0); MEAN PLATELET VOLUME 9.4 FL (7.0-11.0); MONOCYTE # 0.4 TH/MM3 (0-0.9); NEUT % 69.4 % (16.0-70.0); PLATELET COUNT 101 TH/MM3 (150-450); RED BLOOD COUNT 3.57 MIL/MM3 (4.50-5.90); RED CELL DISTRIBUTION WIDTH 12.9 % (11.6-17.2); WHITE BLOOD COUNT 4.4 TH/MM3 (4.0-11.0)
[2017-11-02 19:00] LABS: BICARBONATE 19.8 MEQ/L (21.0-32.0); CALCIUM 8.4 MG/DL (8.5-10.1); CREATININE 1.33 MG/DL (0.60-1.30)
--- NOTE | 2017-11-02 19:09 | HHI.PR ---
Subjective Remarks Remains on O 2 at 3 L. taking his diet well.cannot sleep Chest X ray shows a left effusion. Overall better. Objective Vital Signs Date Time Temp Pulse Resp B/P (MAP) Pulse Ox O2 Delivery O2 Flow Rate FiO2 11/02/17 16:00 97.9 89 18 143/71 (95) 96 11/02/17 16:00 83 11/02/17 12:00 65 11/02/17 12:00 97.4 67 18 132/63 (86) 94 11/02/17 08:00 98.2 74 18 131/63 (85) 98 11/02/17 08:00 70 11/02/17 07:00 Nasal Cannula 2.00 11/02/17 04:10 82 11/02/17 04:00 Nasal Cannula 2.00 11/02/17 04:00 98.3 76 16 150/70 (96) 96 11/02/17 00:40 66 11/02/17 00:00 Nasal Cannula 2.00 11/02/17 00:00 98.3 73 18 139/67 (91) 93 11/01/17 20:55 95 Nasal Cannula 2.00 11/01/17 20:21 77 11/01/17 20:00 97.9 83 20 157/72 (100) 93 11/01/17 20:00 Nasal Cannula 2.00 I/O 11/01/17 11/01/17 11/01/17 11/02/17 11/02/17 11/02/17 07:00 15:00 23:00 07:00 15:00 23:00 Intake Total 300 ml 480 ml 340 ml 620 ml Output Total 1400 ml 800 ml 750 ml 600 ml Balance -1100 ml -320 ml -410 ml 20 ml Intake Oral 200 ml 480 ml 240 ml 620 ml IV Total 100 ml 100 ml Output Urine Total 1400 ml 800 ml 750 ml 600 ml # Bowel Movements 2 1 1 0 Result Diagram: 11/02/17 1751 11/02/17 175 Objective Remarks GENERAL: This elderly, averagely built, white male is in no acute distress. No cyanosis. There is no peripheral edema. No lymphadenopathy. HEENT: Head normocephalic. Pupils are reactive and equal. Tongue is moist. Nasal mucosa clear. NECK: No bruits. No venous distension . Trachea midline. CHEST: Equal movements with decreased breath sounds at bases , with occ crackles at left base. HEART: Sounds were regular S1 and S2 with no murmur, no S3. ABDOMEN: Soft, protuberant without masses. No organomegaly or tenderness. Bowel sounds are active. EXTREMITIES: Decreased peripheral pulses and 1 + edema. Reflexes are 1+. Neuro : Awake and talking appropriately and moves all. Assessment and Plan Assessment and Plan IMPRESSION: 1. Chronic obstructive pulmonary disease with acute exacerbation. 2. Dehydration and acute kidney injury. 3. History of hypertension. 4. Left basilar pneumonia. 5. Left lung atelectasis Plan : 1.O2 at 2 L and wean 2. D/C IV antibiotics 3. Po Diet as tolerated 4. Add Ceftin 500 mg BID X7 days 5. Duoneb nebs qid. 6. Resume heparin 5000U BID 7. Chest Xray today 8. Symbicort 160/4.5 mcg , 2puffs bid 9. D/C BIPAP at HS 10. D/C solumedrol 11. Add Prednisone 10 mg BID X7 days 12. To rehab if stable in am Vaibhav Tubbs MD Nov 02, 2017 19:09
--- NOTE | 2017-11-02 20:34 | RADRPT ---
EXAM DATE/TIME: 11/02/2017 19:40 [facility] COMPARISON: CHEST SINGLE AP, October 29, 2017, 2:24. INDICATIONS : Short of breath MEDICAL HISTORY : Renal calculi. Chronic obstructive pulmonary disease. Renal cell carcinoma SURGICAL HISTORY : Nephrectomy, left. ENCOUNTER: Subsequent ACUITY: 1 week PAIN SCORE: 0/10 LOCATION: chest FINDINGS: There is a large left-sided pleural effusion and consolidation/atelectasis in the left lung with medi astinal shift from right to left. Mild right basilar airspace disease. CONCLUSION: 1. Over the last 4 days there is complete opacification of the left hemithorax likely due to combinat ion of atelectasis and left pleural effusion. There is volume loss with mediastinal shift from right to left. Right basilar opacity is stable. Ole Eckert MD on November 02, 2017 at 20:30 Board Certified Radiologist. This report was verified electronically.
[2017-11-02] MEDS ORDERED: methylPREDNISolone SOD SUCC 40 MG/1 ML VIAL IV PUSH SCH (21:00)
[2017-11-02] MEDS ORDERED: IBUPROFEN 400 MG TAB PO PRN (21:00)
[2017-11-02] MEDS: TAMSULOSIN HCL 0.4 MG CAP PO SCH (21:08)
[2017-11-02] MEDS: predniSONE 10 MG TAB PO SCH (21:08)
[2017-11-02] MEDS: traZODone HCL 100 MG TAB PO SCH (21:08)
[2017-11-02] MEDS: CEFUROXIME AXETIL 500 MG TAB PO SCH (21:09)
[2017-11-03] VITALS: PULSE 54
[2017-11-03] MEDS: metroNIDAZOLE 500 MG TAB PO SCH ×2 (00:59→06:12)
[2017-11-03 04:00] VITALS: PULSE 64
[2017-11-03 04:11] VITALS: BP 130/60; PULSE 61; RESP 18; TEMP 97.6; O2SAT 100
[2017-11-03] MEDS: HEPARIN SODIUM - SQ 10,000 UNITS/ML VIAL SQ SCH (06:00)
[2017-11-03] MEDS: ARTIFICIAL TEARS OPTH SOLN 15 ML BTL EACH EYE SCH (06:00)
[2017-11-03] MEDS: INSULIN NovoLIN REGULAR SUPPLEMENTAL SCALE SQ SCH ×2 (06:00)
[2017-11-03] MEDS: ISOSORBIDE DINITRATE 10 MG TAB PO SCH (06:12)
[2017-11-03] MEDS: hydrALAZINE HCL 25 MG TAB PO SCH (06:12)
[2017-11-03] MEDS: RESP: ALBUTEROL 2.5 MG/3 ML NEB (PRN) NEB (06:23)
[2017-11-03 08:00] VITALS: BP 145/69; PULSE 88; RESP 20; TEMP 98; O2SAT 96
[2017-11-03] MEDS: CHLORHEXIDINE 0.12% (ORAL KIT) 15 ML CUP MT SCH (08:00)
[2017-11-03] MEDS: SODIUM CHLORIDE 0.9% FLUSH 10 ML FLUSH IV FLUSH SCH (08:23)
[2017-11-03] MEDS: CALCIUM CARBONATE 1.25 GM (CA 500 MG) TAB PO SCH (08:59)
[2017-11-03] MEDS: LANSOPRAZOLE SOLUTAB 30 MG TAB NG SCH (08:59)
[2017-11-03] MEDS: MULTIVITAMIN TAB PO SCH (08:59)
[2017-11-03] MEDS: LACTULOSE SYRUP 20 GM/30 ML CUP PO SCH (08:59)
[2017-11-03] MEDS: FINASTERIDE 5 MG TAB PO SCH (08:59)
[2017-11-03] MEDS: predniSONE 10 MG TAB PO SCH (08:59)
[2017-11-03] MEDS: FOLIC ACID 1 MG TAB PO SCH (08:59)
[2017-11-03] MEDS: THIAMINE HCL 100 MG TAB PO SCH (08:59)
[2017-11-03] MEDS: CEFUROXIME AXETIL 500 MG TAB PO SCH (08:59)
[2017-11-03] MEDS: POLYETHYLENE GLYCOL 17 GM PKG OG-TUBE SCH (09:00)
[2017-11-03] MEDS: DOCUSATE SODIUM 50 MG/SENNA 8.6 MG TAB PO SCH (09:00)
[2017-11-03] MEDS: DOXAZOSIN MESYLATE 4 MG TAB PO SCH (09:00)
[2017-11-03] MEDS: REMOVE OLD PATCH T-DERMAL SCH (09:00)
[2017-11-03] MEDS: METOPROLOL TARTRATE 25 MG TAB PO SCH (09:00)
[2017-11-03] MEDS: guaiFENesin E.R. 600 MG TAB PO SCH (09:00)
[2017-11-03] MEDS: NICOTINE 21 MG/24 HR PATCH T-DERMAL SCH (09:00)
[2017-11-03] MEDS: FLUTICASONE 200 MCG/VILANTEROL 25 MCG INHALER INH SCH (09:01)
[2017-11-03] MEDS: CARBAMIDE PEROXIDE 6.5% OTIC SOLN 15 ML BTL EACH EAR SCH (09:01)
[2017-11-03] MEDS: cloNIDine HCL 0.1 MG TAB PO SCH (09:03)
[2017-11-03] MEDS ORDERED: THIA100 PO (09:04)
[2017-11-03] MEDS ORDERED: CEFU1TAB20 PO (09:04)
[2017-11-03] MEDS ORDERED: guaiFENesin ER PO (09:04)
[2017-11-03] MEDS ORDERED: THERTAB15 PO (09:04)
[2017-11-03] MEDS ORDERED: FOLI1TAB6 PO (09:04)
[2017-11-03] MEDS ORDERED: CLON.1 PO (09:04)
[2017-11-03] MEDS ORDERED: HYDR-3799 PO (09:04)
[2017-11-03] MEDS ORDERED: FURO1TAB62 PO (09:04)
[2017-11-03] MEDS ORDERED: Albuterol Neb NEB (09:10)
[2017-11-03] MEDS ORDERED: OXYGENDME NAS.CANULA (09:12)
--- NOTE | 2017-11-03 09:15 | HHI.DS ---
Discharge Summary Admission Date Oct 13, 2017 at 05:34 Admitting Diagnosis exac copd; LLL infiltrate; metabolic disturbance (1) Acute hypoxemic respiratory failure ICD Codes: J96.01 - Acute respiratory failure with hypoxia (2) CKD (chronic kidney disease), stage III ICD Codes: N18.3 - Chronic kidney disease, stage 3 (moderate) (3) Alcohol abuse ICD Codes: F10.10 - Alcohol abuse Status: Chronic (4) Depression ICD Codes: F32.9 - Major depressive disorder, single episode, unspecified (5) Weakness ICD Codes: R53.1 - Weakness Status: Acute (6) Hard of hearing ICD Codes: H91.90 - Unspecified hearing loss, unspecified ear Status: Chronic (7) COPD with exacerbation ICD Codes: J44.1 - Chronic obstructive pulmonary disease with (acute) exacerbation Status: Chronic (8) HTN (hypertension) ICD Codes: I10 - Essential (primary) hypertension Status: Chronic (9) H/O renal cell carcinoma ICD Codes: Z85.528 - Personal history of other malignant neoplasm of kidney Status: Chronic (10) BPH (benign prostatic hyperplasia) ICD Codes: N40.0 - Benign prostatic hyperplasia without lower urinary tract symptoms Status: Chronic (11) BERE (acute kidney injury) ICD Codes: N17.9 - Acute kidney failure, unspecified Status: Acute Brief History 72-year-old male presents to the emergency department by EMS transport from home where he got up to go to [place] ad fell sustaining right knee abrasion. He had SOB r/t his chronic COPD. Patient required 3 breathing treatment for severe expiratory wheezing by EMS. US done in ER for RLE edema that was negative for DVT. Patient has electrolyte imbalance with potassium 2.8, sodium 150 and calcium 5.1. His lactic acid 4.4. CBC/BMP: 11/02/17 1751 11/02/17 1751 Significant Findings Laboratory Tests Test 10/31/17 13:20 11/01/17 08:45 11/02/17 17:51 Red Blood Count 3.89 MIL/MM3 (4.50-5.90) 3.67 MIL/MM3 (4.50-5.90) 3.57 MIL/MM3 (4.50-5.90) Mean Corpuscular Volume 100.6 FL (80.0-100.0) 100.9 FL (80.0-100.0) 101.1 FL (80.0-100.0) Mean Corpuscular Hemoglobin 34.6 PG (27.0-34.0) 34.7 PG (27.0-34.0) 34.4 PG (27.0-34.0) Platelet Count 109 TH/MM3 (150-450) 117 TH/MM3 (150-450) 101 TH/MM3 (150-450) Hemoglobin 12.8 GM/DL (13.0-17.0) 12.3 GM/DL (13.0-17.0) Hematocrit 37.0 % (39.0-51.0) 36.1 % (39.0-51.0) Blood Urea Nitrogen 42 MG/DL (7-18) 35 MG/DL (7-18) Creatinine 1.46 MG/DL (0.60-1.30) 1.33 MG/DL (0.60-1.30) Random Glucose 108 MG/DL (74-106) 107 MG/DL (74-106) Calcium Level 8.4 MG/DL (8.5-10.1) 8.4 MG/DL (8.5-10.1) Chloride Level 111 MEQ/L (98-107) 112 MEQ/L (98-107) Carbon Dioxide Level 19.5 MEQ/L (21.0-32.0) 19.8 MEQ/L (21.0-32.0) Estimat Glomerular Filtration Rate 47 ML/MIN (>89) 53 ML/MIN (>89) Monocytes (%) (Auto) 10.0 % (0.0-8.0) Lymphocytes # (Auto) 0.9 TH/MM3 (1.0-4.8) PE at Discharge GENERAL: This is a well-nourished, elderly male on 2liters SKIN: No rashes, ecchymosis. HEAD: Atraumatic. Normocephalic. No temporal or scalp tenderness. EYES: Pupils equal round and reactive. Extraocular motions intact. No scleral icterus. No injection or drainage. ENT: Nose without bleeding, purulent drainage NECK: Trachea midline. No JVD CARDIOVASCULAR: Regular rate and rhythm without murmurs, gallops, or rubs. RESPIRATORY: Equal B/l, scattered rhonchi, wheezes GASTROINTESTINAL: Abdomen soft, non-tender, nondistended. MUSCULOSKELETAL: trace edema NEUROLOGICAL: alert oriented, annoyed r/t long hospital stay Hospital Course Admitted on 10/13, for SOB and wheezing and increased edema to RLE with laceration. There was concern of possible blood clot, US negative for DVT. Right ankle xray negative for fracture. He had some BERE on admission with creatinine 1.82. He does have hx of Renal carcinoma, Renal was consulted. Renal Ultrasound done on 10/13/17 showing left renal cyst, partially obstructing right renal calculus. Chest CT on 10/13 show JANINE, LLL consolidation. Pulmonary consulted. He was treated with Iv Rocephin Solu Medrol, bronchodilators. PFT done on 10/14 showed Moderately severe obstructive disease. Blood cultures from 10/13, shows no growth. BP during hospitalization frequently ran high he was placed on several agent with better control. He has history of ETOH abuse, CIWA protocol put in place. Bronchoscopy done on , cultures showed budding yeast. Intubated on 10/25 for hypoxia increased sob, extubated on 10/28/17. Breathing cont to improve, patient d/c to rehab. Pt Condition on Discharge: Stable Discharge Disposition: Disch w/ Home Health Serv Discharge Instructions DIET: Follow Instructions for: As Tolerated, No Restrictions Speech Therapy-Diet Recommenda: Regular, Pureed Activities you can perform: Regular-No Restrictions Follow up Referrals: Pulmonology - 2 Weeks with Vaibhav Tubbs MD New Medications: Furosemide (Lasix) 20 Mg Tab 20 MG PO DAILY for Dyspnea for 30 Days, #30 TAB 0 Refills Oxygen (O2) (Oxygen (O2)) Device LITER HOOD.CANULA CONTINUOUS for Prevent Hypoxemia, #2 Oxygen Concentrator Portable Gaseous 2 L/min via Nasal Canula Continuous For 99 months Cefuroxime (Cefuroxime) 500 Mg Tab 500 MG PO Q12HR for Infection for 10 Days, #20 TAB Clonidine (Catapres) 0.1 Mg Tab 0.1 MG PO BID for Blood Pressure Management for 30 Days, #60 TAB Folic Acid (Folic Acid) 1 Mg Tablet 1 MG PO DAILY for defiency for 30 Days, #30 TAB Hydralazine HCl (Hydralazine HCl) 25 Mg Tablet 25 MG PO Q8HR for Blood Pressure Management for 30 Days, #120 CAP Multivitamin with Folic Acid (Thera Tablet) 400 Mcg Tablet 1 TAB PO DAILY for defiency for 30 Days, #30 TAB Thiamine HCl (Gnp Vitamin B-1) 100 Mg Tab 100 MG PO DAILY for defiency for 30 Days, #30 TAB [Albuterol Neb] () 2.5 MG/3 ML NEBU 2.5 MG NEB Q2HR NEB PRN for dyspnea [guaiFENesin ER] () 600 MG TABCR 600 MG PO BID PRN for CHEST CONGESTION AND/OR COUGH Continued Medications: Albuterol 18 GM Inh (Ventolin Hfa 18 GM Inh) 90 Mcg/Act Aer 2 PUFF INH Q6HR for Breathing Treatment, #30 INHALER Amlodipine (Norvasc) 10 Mg Tab 10 MG PO DAILY for Blood Pressure Management, #30 TAB Doxazosin (Doxazosin) 8 Mg Tab 8 MG PO DAILY, #30 TAB 0 Refills Finasteride (Finasteride) 5 Mg Tab 5 MG PO DAILY for Manage Prostate Problems, #30 TAB 0 Refills Do not crush. Fluticasone-Vilanterol Inh (Breo Ellipta Inh) 200-25 Mcg/Act Inh 1 PUFF INH DAILY, #1 INHALER 0 Refills Use daily at the same time. Lisinopril (Lisinopril) 5 Mg Tab 5 MG PO DAILY for Blood Pressure Management, #30 TAB Metoprolol Tartrate (Metoprolol Tartrate) 25 Mg Tab 12.5 MG PO BID for Blood Pressure Management, #60 TAB Tamsulosin (Tamsulosin) 0.4 Mg Cap 0.4 MG PO HS for Manage Prostate Problems, #30 CAP 0 Refills Trazodone (Trazodone) 100 Mg Tablet 200 MG PO HS for Control Depression, #30 TAB 0 Refills Additional Information BMP twice week to monitor kidney function r/t diuretics. O2 NC keep sats >92 Sulma Macias Nov 03, 2017 09:15
[2017-11-03 12:00] VITALS: BP 164/81; PULSE 94; RESP 20; TEMP 98.2; O2SAT 97
--- NOTE | 2017-11-03 12:55 | HHI.PR ---
Subjective Remarks Remains on O 2 at 3 L. taking his diet well. Will go to rehab today Overall better. Pt had Bronchoscopy and a Left lower lobe lung biopsy done Objective Vital Signs Date Time Temp Pulse Resp B/P (MAP) Pulse Ox O2 Delivery O2 Flow Rate FiO2 11/03/17 08:00 98.0 88 20 145/69 (94) 96 11/03/17 04:11 97.6 61 18 130/60 (83) 100 11/03/17 04:00 64 11/03/17 00:00 54 11/02/17 23:34 97.8 66 18 138/66 (90) 98 11/02/17 20:07 Nasal Cannula 2.00 11/02/17 20:00 98.5 89 18 133/65 (87) 95 11/02/17 20:00 86 11/02/17 20:00 Nasal Cannula 2.00 11/02/17 16:00 97.9 89 18 143/71 (95) 96 11/02/17 16:00 83 I/O 11/02/17 11/02/17 11/02/17 11/03/17 11/03/17 11/03/17 07:00 15:00 23:00 07:00 15:00 23:00 Intake Total 340 ml 620 ml 680 ml Output Total 750 ml 900 ml 525 ml Balance -410 ml -280 ml 155 ml Intake Oral 240 ml 620 ml IV Total 100 ml 680 ml Output Urine Total 750 ml 900 ml 525 ml # Bowel Movements 1 0 Result Diagram: 11/02/17 1751 11/02/17 1751 Objective Remarks GENERAL: This elderly, averagely built, white male is in no acute distress. No cyanosis. There is no peripheral edema. No lymphadenopathy. HEENT: Head normocephalic. Pupils are reactive and equal. Tongue is moist. Nasal mucosa clear. NECK: No bruits. No venous distension . Trachea midline. CHEST: Equal movements with decreased breath sounds at bases , with crackles at left base. HEART: Sounds were regular S1 and S2 with no murmur, no S3. ABDOMEN: Soft, protuberant without masses. No organomegaly or tenderness. Bowel sounds are active. EXTREMITIES: Decreased peripheral pulses and 1 + edema. Reflexes are 1+. Neuro : Awake and talking appropriately and moves all. Assessment and Plan Assessment and Plan IMPRESSION: 1. Chronic obstructive pulmonary disease with acute exacerbation. 2. Dehydration and acute kidney injury. 3. History of hypertension. 4. Left basilar pneumonia. 5. Left lung atelectasis Plan : 1.O2 at 2 L and wean 2. IS qid 3. Po Diet as tolerated 4. Add Ceftin 500 mg BID X5 days 5. Duoneb nebs qid. 6. D/C heparin 7. Prednisone 10 mg BID X7 days 8. Symbicort 160/4.5 mcg , 2puffs bid 9. D/C BIPAP at HS 10. To rehab today Vaibhav Tubbs MD Nov 03, 2017 12:55
== END 2017-11-03 12:44 | DRG 208 ==
LOC: NEPC 03:33 → NEDA 05:34 → N03B 09:46 → HCIN 10-23 17:10 → HIMN 10-25 15:25 → N04B 10-31 14:31
PROVIDERS: ADMIT Family Medicine; ATTEND Family Medicine
PROC: 0BBB8ZX Excision of Left Lower Lobe Bronchus, Via Natural or Artificial Opening Endoscopic, Diagnostic (ICD-10-PCS; principal; 2017-10-22)
PROC: 0BC38ZZ Extirpation of Matter from Right Main Bronchus, Via Natural or Artificial Opening Endoscopic (ICD-10-PCS; 2017-10-22)
PROC: 0BC48ZZ Extirpation of Matter from Right Upper Lobe Bronchus, Via Natural or Artificial Opening Endoscopic (ICD-10-PCS; 2017-10-22)
PROC: 0BC68ZZ Extirpation of Matter from Right Lower Lobe Bronchus, Via Natural or Artificial Opening Endoscopic (ICD-10-PCS; 2017-10-22)
PROC: 0BC58ZZ Extirpation of Matter from Right Middle Lobe Bronchus, Via Natural or Artificial Opening Endoscopic (ICD-10-PCS; 2017-10-22)
PROC: 0BC78ZZ Extirpation of Matter from Left Main Bronchus, Via Natural or Artificial Opening Endoscopic (ICD-10-PCS; 2017-10-22)
PROC: 0BC88ZZ Extirpation of Matter from Left Upper Lobe Bronchus, Via Natural or Artificial Opening Endoscopic (ICD-10-PCS; 2017-10-22)
PROC: 5A1945Z Respiratory Ventilation, 24-96 Consecutive Hours (ICD-10-PCS; 2017-10-25)
PROC: 0BH18EZ Insertion of Endotracheal Airway into Trachea, Via Natural or Artificial Opening Endoscopic (ICD-10-PCS; 2017-10-25)
DX: J44.1 Chronic obstructive pulmonary disease with (acute) exacerbation (principal); J96.01 Acute respiratory failure with hypoxia; J18.9 Pneumonia, unspecified organism; N17.9 Acute kidney failure, unspecified; T17.590A Other foreign object in bronchus causing asphyxiation, initial encounter; E87.2 Acidosis; E87.0 Hyperosmolality and hypernatremia; D69.6 Thrombocytopenia, unspecified; J98.11 Atelectasis; N13.8 Other obstructive and reflux uropathy; F10.239 Alcohol dependence with withdrawal, unspecified; G62.9 Polyneuropathy, unspecified; E83.51 Hypocalcemia; N18.3 Chronic kidney disease, stage 3 (moderate); E86.0 Dehydration; R53.1 Weakness; E87.6 Hypokalemia; J44.0 Chronic obstructive pulmonary disease with (acute) lower respiratory infection; S80.211A Abrasion, right knee, initial encounter; E78.5 Hyperlipidemia, unspecified; I12.9 Hypertensive chronic kidney disease with stage 1 through stage 4 chronic kidney disease, or unspecified chronic kidney disease; R60.0 Localized edema; K21.9 Gastro-esophageal reflux disease without esophagitis; H91.90 Unspecified hearing loss, unspecified ear; E88.09 Other disorders of plasma-protein metabolism, not elsewhere classified; D53.9 Nutritional anemia, unspecified; N20.0 Calculus of kidney; N40.1 Benign prostatic hyperplasia with lower urinary tract symptoms; F17.210 Nicotine dependence, cigarettes, uncomplicated; W18.30XA Fall on same level, unspecified, initial encounter; Z85.528 Personal history of other malignant neoplasm of kidney
CPT/HCPCS: 31500; 31625; 36600; 71045; 71046; 71250; 73610; 76775; 80048; 80053; 80076; 81001; 82306; 82397; 82550; 82800; 82805; 82948; 83605; 83690; 83735; 83880; 83970; 84100; 84155; 84484; 85025; 85027; 85610; 85730; 87015; 87040; 87070; 87102; 87116; 87205; 87206; 87641; 88112; 88305; 93005; 93971; 94002; 94003; 94060; 94150; 94640; 94664; 94667; 94668; 96365; 96368; 96375; J0456; J0610; J0692; J0696; J1450; J1644; J2060; J2250; J2920; J3010; J3411; J3475; J3480; J7030; J7050; J7512; J7608; J7613; J7626

== ENCOUNTER 2018-01-16 13:20 | Inpatient (IN) | payer MEDICARE, BC ==
[2018-01-16] VITALS (8 sets, daily range): BP systolic 166–179; BP diastolic 79–94; PULSE 72–107; RESP 18–24; TEMP 98.1–98.8; O2SAT 91–98
[~2018-01-16] VITALS: Ht 175.3 cm; Wt 64.5 kg
[~2018-01-16 13:20] MED LIST changes: +Albuterol Neb NEB; +CEFU1TAB20 PO; -CHOL5000 PO; -CIPR-9 PO; +CLON.1 PO; +FOLI1TAB6 PO; +FURO1TAB62 PO; +HYDR-3799 PO; +OXYGENDME NAS.CANULA; -PRED10 PO; -PRED20 PO; -PRED5TAB PO; +THERTAB15 PO; +THIA100 PO; +guaiFENesin ER PO
[2018-01-16] MEDS ORDERED: FAMOTIDINE 20 MG/2 ML VIAL IV PUSH ONE (13:45)
[2018-01-16] MEDS ORDERED: ONDANSETRON ODT 4 MG TAB PO ONE (13:45)
[2018-01-16] MEDS ORDERED: MORPHINE SULFATE 4 MG/ML INJ IV PUSH ONE (13:45)
[2018-01-16] MEDS ORDERED: SODIUM CHLORIDE 0.9% FLUSH 10 ML FLUSH IVF PRN (13:45)
[2018-01-16] MEDS ORDERED: ASPIRIN 325 MG TAB PO ONE (13:45)
[2018-01-16 13:57] LABS: AUTOMATED NEUTROPHIL # 8.5 TH/MM3 (1.8-7.7); BASOPHIL # 0.1 TH/MM3 (0-0.2); BASOPHIL % 1.1 % (0.0-2.0); EOSINOPHIL # 0.3 TH/MM3 (0-0.4); EOSINOPHIL % 2.2 % (0.0-4.0); HEMATOCRIT 31.2 % (39.0-51.0); LYMPHOCYTE # 1.4 TH/MM3 (1.0-4.8); MEAN CELL VOLUME 92.7 FL (80.0-100.0); MEAN CORPUSCULAR HEMOGLOBIN 32.7 PG (27.0-34.0); MEAN CORPUSCULAR HGB CONC 35.2 % (32.0-36.0); MEAN PLATELET VOLUME 8.6 FL (7.0-11.0); MONO % 10.5 % (0.0-8.0); MONOCYTE # 1.2 TH/MM3 (0-0.9); NEUT % 74.2 % (16.0-70.0); PLATELET COUNT 315 TH/MM3 (150-450); RED BLOOD COUNT 3.36 MIL/MM3 (4.50-5.90); RED CELL DISTRIBUTION WIDTH 13.1 % (11.6-17.2); WHITE BLOOD COUNT 11.4 TH/MM3 (4.0-11.0)
[2018-01-16] MEDS ORDERED: DILT30TA PO (14:01)
[2018-01-16] MEDS ORDERED: OXYB5TAB8 PO (14:01)
[2018-01-16] MEDS ORDERED: VITA100021 SL (14:01)
[2018-01-16] MEDS ORDERED: FLUT1INH7 INH (14:01)
[2018-01-16] MEDS ORDERED: CITRPOW3 PO (14:01)
--- NOTE | 2018-01-16 14:11 | RADRPT ---
EXAM DATE: 01/16/2018 2:07 PM EDT AGE/SEX: 73 years / Male INDICATIONS: Shortness of breath and left sided chest pain. CLINICAL DATA: This is the patient's initial encounter. Patient reports that signs and symptoms have been present for 1 day and indicates a pain score of 6/10. MEDICAL/SURGICAL HISTORY: . Renal calculi. Chronic obstructive pulmonary disease. Renal cell ca rcinoma . Nephrectomy, left COMPARISON: [facility] [place], CHEST SINGLE AP, 11/02/2017. . FINDINGS: Parenchymal consolidation and small to moderate pleural effusion seen at the left lung base. These fi ndings are actually improved relative to the October comparison whether recurrent or residual uncertain . The right lung is clear. There is no pneumothorax. Heart size stable, within normal limits. CONCLUSION: Consolidation and small to moderate pleural effusion at the left lung base. Electronically signed by: George Vaughn MD 01/16/2018 2:09 PM EDT
[2018-01-16 14:12] LABS: INTERNATIONAL NORMALIZED RATIO 1.1 RATIO; PROTHROMBIN TIME - PATIENT 10.9 SEC (9.8-11.6)
[2018-01-16] MEDS ORDERED: HYDROmorphone HCL PF 2 MG/ML VIAL IV PUSH ONE (14:15)
[2018-01-16] MEDS ORDERED: AZITHROMYCIN INJ 500 MG in SODIUM CHLOR 0.9% 250 ML INJ 250 ML IV ONE (14:15)
[2018-01-16] MEDS ORDERED: cefTRIAXone INJ 1,000 MG in SODIUM CHLORIDE 0.9% INJ 100 ML IV ONE (14:15)
[2018-01-16 14:31] LABS: ALBUMIN 2.3 GM/DL (3.4-5.0); ALKALINE PHOSPHATASE 133 U/L (45-117); ALT (GPT) 44 U/L (12-78); AST (GOT) 33 U/L (15-37); BICARBONATE 20.9 MEQ/L (21.0-32.0); BLOOD UREA NITROGEN 22 MG/DL (7-18); CALCIUM 8.6 MG/DL (8.5-10.1); CHLORIDE 103 MEQ/L (98-107); CREATININE 1.54 MG/DL (0.60-1.30); GLOMERULAR FILTRATION RATE 44 ML/MIN (>89); GLUCOSE,RANDOM 90 MG/DL (74-106); MAGNESIUM 2.1 MG/DL (1.5-2.5); SODIUM (NA) 137 MEQ/L (136-145); TOTAL BILIRUBIN ADULT 0.6 MG/DL (0.2-1.0); TOTAL PROTEIN 6.6 GM/DL (6.4-8.2); TROPONIN I LESS THAN 0.02 NG/ML (0.02-0.05)
[2018-01-16] MEDS ORDERED: ONDANSETRON HCL 4 MG/2 ML VIAL IVP PRN (15:00)
[2018-01-16] MEDS ORDERED: SODIUM CHLORIDE 0.9% FLUSH 10 ML FLUSH IV FLUSH PRN (15:00)
[2018-01-16] MEDS ORDERED: BISACODYL 10 MG SUPP RECTAL PRN (15:00)
[2018-01-16] MEDS ORDERED: SENNOSIDES 8.6 MG TAB PO PRN (15:00)
[2018-01-16] MEDS ORDERED: ACETAMINOPHEN 325 MG TAB PO PRN (15:00)
[2018-01-16] MEDS ORDERED: NALOXONE HCL 0.4 MG/ML AMP IV PUSH PRN (15:00)
--- NOTE | 2018-01-16 15:04 | PD ---
HPI Chief Complaint: Chest Pain Time Seen by Provider: 13:27 Travel History International Travel<30 days: No Contact w/Intl Traveler<30days: No Traveled to known affect area: No History of Present Illness HPI 73-year-old male the presents to the ED for evaluation of left-sided chest pain started for the past 2-3 days. Per patient the pain is constant but becomes very severe. Per patient he lives in an [facility] and apparently he has been given mylanta the past 2 days with good relief of this discomfort as he does have a history of GERD. Today the pain did not improve with Mylanta and EVAC was contacted. He denies any history of heart disease. He does have a significant history of COPD and history of renal cancer. He has been here admitted for COPD exacerbations in the past. He denies any urinary or bowel movement issues other than some mild diarrhea that he had last week. States the chest pain comes and goes and becomes more severe 7 out of 10. He always has a pressure- like sensation on his left chest. Does not radiate. No trauma or injury. Per patient sitting up makes it better. Has no allergies to medication. No other medical issues. Denies taking any blood thinners and per his records he does not. No leg swelling. States having chronic shortness of breath but this has not changed per patient. Unclear patient takes oxygen but per his record he if supposed to be on O2. PFSH Past Medical History Hx Anticoagulant Therapy: No Asthma: No Autoimmune Disease: No Blood Disorders: No Heart Rhythm Problems: No Cancer: Yes (RIGHT KIDNEY, 2001) Cardiovascular Problems: Yes High Cholesterol: No Chemotherapy: No Chest Pain: No Congestive Heart Failure: No COPD: Yes Cerebrovascular Accident: No Coronary Artery Disease: No Diabetes: No Endocrine: No Gastrointestinal Disorders: Yes GERD: No Genitourinary: Yes (BPH) Hiatal Hernia: Yes Hypertension: Yes Immune Disorder: No Implanted Vascular Access Dvce: Yes Kidney Stones: Yes Musculoskeletal: Yes (PERIPHERAL NEUROPATHY ) Neurologic: No Psychiatric: No Reproductive: No Respiratory: Yes (COPD) Integumentary: Yes (skin tags) Immunizations Current: Yes Myocardial Infarction: No Radiation Therapy: No Renal Failure: No Sleep Apnea: No Ulcer: No Tetanus Vaccination: > 5 Years Influenza Vaccination: No PNEUMOCCOCAL Vaccine (Year): 1 Past Surgical History Abdominal Surgery: Yes (LT ING HERNIA REPAIR) Body Medical Devices: SCREWS TO RIGHT LEG Cardiac Surgery: No Ear Surgery: No Endocrine Surgery: No Eye Surgery: No Genitourinary Surgery: Yes (RT PARTIAL NEPHRECTOMY) Gynecologic Surgery: No Hysterectomy: No Neurologic Surgery: No Oral Surgery: No Thoracic Surgery: No Tonsillectomy: Yes Other Surgery: Yes (RIGHT PARTIAL NEPHRECTOMY 1999,INGUINAL HERNIA 1962, TONSILLECTOMY) Social History Alcohol Use: No Tobacco Use: No Substance Use: No Allergies-Medications (Allergen,Severity, Reaction): Coded Allergies: No Known Allergies (Verified Adverse Reaction, Unknown, 01/16/18) Reported Meds & Prescriptions Reported Meds & Active Scripts Active Reported Diltiazem (Diltiazem HCl) 30 Mg Tab 30 Mg PO TID Ditropan (Oxybutynin Chloride) 5 Mg Tab 5 Mg PO Q12HR Vitamin B-12 (Cyanocobalamin) 1,000 Mcg Subl 5,000 Mcg SL DAILY Citrucel Fiber Laxative Powder (Methylcellulose Powder) 15 Ml Pow 15 Ml PO DAILY Mix in full glass water Breo Ellipta Inh (Fluticasone/Vilanterol) 200-25 Mcg/Act Inh 1 Puff INH DAILY Use daily at the same time. Trazodone (Trazodone HCl) 100 Mg Tablet 200 Mg PO HS Finasteride 5 Mg Tab 5 Mg PO DAILY Do not crush. Doxazosin (Doxazosin Mesylate) 8 Mg Tab 8 Mg PO DAILY Tamsulosin (Tamsulosin HCl) 0.4 Mg Cap 0.4 Mg PO HS Review of Systems Except as stated in HPI: all other systems reviewed are Neg Physical Exam Narrative GENERAL: SKIN: Warm and dry. HEAD: Atraumatic. Normocephalic. EYES: Pupils equal and round. No scleral icterus. No injection or drainage. ENT: No nasal bleeding or discharge. Mucous membranes pink and moist. Tongue is midline. No uvula deviation. NECK: Trachea midline. No JVD. CARDIOVASCULAR: Regular rate and rhythm. No murmurs, S3, S4. RESPIRATORY: No accessory muscle use. Mild rales heard in the left lower lung field. Breath sounds equal bilaterally. GASTROINTESTINAL: Abdomen soft, non-tender, nondistended. Hepatic and splenic margins not palpable. MUSCULOSKELETAL: Extremities without clubbing, cyanosis, or edema. No obvious deformities. Full range of motion of the upper and lower extremities bilaterally. 2+ pulses bilaterally. NEUROLOGICAL: Awake and alert. No obvious cranial nerve deficits. Motor grossly within normal limits. Five out of 5 muscle strength in the arms and legs. Normal speech. PSYCHIATRIC: Appropriate mood and affect; insight and judgment normal. Data Data Last Documented VS Vital Signs Date Time Temp Pulse Resp B/P (MAP) Pulse Ox O2 Delivery O2 Flow Rate FiO2 01/16/18 13:54 98.8 107 24 168/82 (110) 92 Room Air 01/16/18 13:38 2.00 Orders Orders Electrocardiogram (01/16/18 13:34) Ckmb (Isoenzyme) Profile (01/16/18 13:34) Complete Blood Count With Diff (01/16/18 13:34) Comprehensive Metabolic Panel (01/16/18 13:34) Magnesium (Mg) (01/16/18 13:34) Prothrombin Time / Inr (Pt) (01/16/18 13:34) Act Partial Throm Time (Ptt) (01/16/18 13:34) Troponin I (01/16/18 13:34) Lipase (01/16/18 13:34) Chest, Single Ap (01/16/18 13:34) Ecg Monitoring (01/16/18 13:34) Bilateral Bp Monitoring (01/16/18 13:34) Iv Access Insert/Monitor (01/16/18 13:34) Oximetry (01/16/18 13:34) Oxygen Administration (01/16/18 13:34) Aspirin (Aspirin) (01/16/18 13:45) Morphine Inj (Morphine Inj) (01/16/18 13:45) Sodium Chloride 0.9% Flush (Ns Flush) (01/16/18 13:45) Ondansetron Odt (Zofran Odt) (01/16/18 13:45) Famotidine Inj (Pepcid Inj) (01/16/18 13:45) Hydromorphone Pf Inj (Dilaudid Pf Inj) (01/16/18 14:15) Ceftriaxone Inj (Rocephin Inj) (01/16/18 14:15) Azithromycin Inj (Zithromax Inj) (01/16/18 14:15) Blood Culture (01/16/18 14:13) Lactic Acid Sepsis Protocol (01/16/18 14:15) B-Type Natriuretic Peptide (01/16/18 14:36) Admit Order (Ed Use Only) (01/16/18 14:47) Labs Laboratory Tests Test 01/16/18 13:40 01/16/18 14:25 White Blood Count 11.4 TH/MM3 Red Blood Count 3.36 MIL/MM3 Hemoglobin 11.0 GM/DL Hematocrit 31.2 % Mean Corpuscular Volume 92.7 FL Mean Corpuscular Hemoglobin 32.7 PG Mean Corpuscular Hemoglobin Concent 35.2 % Red Cell Distribution Width 13.1 % Platelet Count 315 TH/MM3 Mean Platelet Volume 8.6 FL Neutrophils (%) (Auto) 74.2 % Lymphocytes (%) (Auto) 12.0 % Monocytes (%) (Auto) 10.5 % Eosinophils (%) (Auto) 2.2 % Basophils (%) (Auto) 1.1 % Neutrophils # (Auto) 8.5 TH/MM3 Lymphocytes # (Auto) 1.4 TH/MM3 Monocytes # (Auto) 1.2 TH/MM3 Eosinophils # (Auto) 0.3 TH/MM3 Basophils # (Auto) 0.1 TH/MM3 CBC Comment DIFF FINAL Differential Comment Prothrombin Time 10.9 SEC Prothromb Time International Ratio 1.1 RATIO Activated Partial Thromboplast Time 32.8 SEC Blood Urea Nitrogen 22 MG/DL Creatinine 1.54 MG/DL Random Glucose 90 MG/DL Total Protein 6.6 GM/DL Albumin 2.3 GM/DL Calcium Level 8.6 MG/DL Magnesium Level 2.1 MG/DL Alkaline Phosphatase 133 U/L Aspartate Amino Transf (AST/SGOT) 33 U/L Alanine Aminotransferase (ALT/SGPT) 44 U/L Total Bilirubin 0.6 MG/DL Sodium Level 137 MEQ/L Potassium Level 4.3 MEQ/L Chloride Level 103 MEQ/L Carbon Dioxide Level 20.9 MEQ/L Anion Gap 13 MEQ/L Estimat Glomerular Filtration Rate 44 ML/MIN Total Creatine Kinase 47 U/L Troponin I LESS THAN 0.02 NG/ML Lipase 79 U/L MDM Medical Decision Making Medical Screen Exam Complete: Yes Emergency Medical Condition: Yes Medical Record Reviewed: Yes Interpretation(s) CBC & BMP Diagram 01/16/18 13:40 Total Protein 6.6, Albumin 2.3 L, Calcium Level 8.6, Magnesium Level 2.1, Alkaline Phosphatase 133 H, Aspartate Amino Transf (AST/SGOT) 33, Alanine Aminotransferase (ALT/SGPT) 44, Total Bilirubin 0.6 EKG shows sinus tachycardia with no sign of acute ischemia or arrhythmia read by me and attending. Troponin and CK-MB negative. Last Impressions Chest X-Ray 01/16/18 1334 Signed Impressions: CONCLUSION: Consolidation and small to moderate pleural effusion at the left lung base. Differential Diagnosis Chest pain versus typical chest pain versus COPD exacerbation versus pneumonia versus pleural effusion versus PE less likely Narrative Course 73-year-old male that presents to the ED for evaluation of left-sided chest pain. Patient was properly examined and was found to have signs and symptoms of unclear etiology but concerning for cardiac versus infectious. Labs and imaging order. Labs and imaging show what appears to be infiltrate to the left chest as well as some pleural effusion. Very possibly pneumonia. Likely the cause of his discomfort. Patient will start IV antibiotics. Patient was told results and agrees with admission. Labs and imaging otherwise unremarkable. Case discussed with Dr Mari who agrees with plan. Case discussed with PA for Dr. Sidhu who agrees to admission to his service. Diagnosis Primary Impression: Left lower lobe pneumonia Qualified Codes: J18.1 - Lobar pneumonia, unspecified organism Additional Impressions: COPD (chronic obstructive pulmonary disease) Qualified Codes: J44.1 - Chronic obstructive pulmonary disease with (acute) exacerbation Chest pain in adult Admitting Information Admitting Physician Requests: Admit Milton Lin Jan 16, 2018 15:04
[2018-01-16] MEDS: SODIUM CHLOR 0.9% 1000 ML INJ 1,000 ML IV SCH (16:16)
[2018-01-16] MEDS: ENOXAPARIN SODIUM 40 MG/0.4 ML SYRINGE SQ SCH (16:16)
[2018-01-16] MEDS: DILTIAZEM HCL 30 MG TAB PO SCH (18:20)
--- NOTE | 2018-01-16 19:43 | MB ---
cc: Nithin Guzman MD, Vance E MD DATE: 01/16/2018 REASON FOR CONSULTATION: Evaluation of chest pain. HISTORY OF PRESENT ILLNESS: George Otto is a 73-year-old man with COPD and previous prolonged hospitalization. He comes in complaining of left-sided chest pain. He says 3-4 days ago, he developed pain in the left side of his chest like somebody was standing on him. Nurse gave him some antacid. It got better after 30 minutes, had recurrent pain the day after. Then, the following day actually had more intense pain. Antacid has no effect. Nitroglycerin had no effect. When you press on the left lower chest, he winces and that makes the pain much worse. Denies any previous history of heart disease. He smoked up until recently, 1 pack a day for 60 years. He has had previous respiratory failure in September with an abnormal chest x-ray. He had no findings for a DVT at that time. PAST MEDICAL HISTORY: Includes history of emphysema, hypertension, previous renal cancer with partial right nephrectomy, tonsillectomy. SOCIAL HISTORY: He used to drink 4 [employer] cocktails a day and smoked a pack a day, but he has quit on both. He is . He has 1 son living in [place]. 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 FAMILY HISTORY: Negative for heart disease. PAST SURGICAL HISTORY: He has had a left inguinal hernia repair. PRESENT MEDICATIONS: 1. Diltiazem 30 t.i.d. 2. Breo 3. Tamsulosin. 4. Finasteride. 5. Trazodone. REVIEW OF SYSTEMS: He had recent diarrhea, but that resolved. PHYSICAL EXAMINATION: GENERAL: An elderly white male, alert and oriented, somewhat "crusty" personality. HEENT: Unremarkable. NECK: No JVD. No bruits. CHEST: Shows dullness and absent breath sounds chcf up on the left side. There is palpable chest wall tenderness in left lower chest. CARDIAC: S1, S2. Regular rate and rhythm. No murmurs or gallops. ABDOMEN: Soft, nontender. No masses or organomegaly. EXTREMITIES: No clubbing, cyanosis or edema. Pulses are palpable. IMAGING STUDIES: Chest x-ray shows a large effusion on the left side. CARDIOLOGY STUDIES: EKG demonstrates sinus rhythm without any acute ischemic changes. LABORATORY DATA: White count is elevated at 11,400. Troponin is less than 0.02. IMPRESSION AND PLAN: Left-sided chest pain with markedly abnormal chest x-ray. The left chest wall tenderness does not sound typical of ischemia and he has obvious pathology in the left side of his chest with left chest wall pain. This most likely explains the chest pain. We will see what subsequent enzymes show, but primary workup here will need to be directed at the disease process going on in his left chest. Thank you for asking me to see him. MD TRISTEN Velasco/ , 07:26 PM , 07:41 PM
--- NOTE | 2018-01-16 20:52 | MB ---
cc: Jose Giron MD, Arjun D MD DATE: 01/16/2018 REQUESTING PHYSICIAN: . REASON FOR CONSULTATION: Pneumonia and pleural effusion. HISTORY OF PRESENT ILLNESS: Mr. Otto is a pleasant 73-year-old male with history of nicotine use and alcohol use. He has history of underlying COPD. He was brought from the [facility] facility because of chest pain on the left side for about 3 days or so. He felt that somebody was sitting on his chest. He has cough and congestion, small amount of sputum, had low-grade fever. No nausea or vomiting. No significant wheezing. Because of symptoms, the patient was seen in the emergency room. His CBC showed WBC count 11.4, hemoglobin 11, hematocrit 31.2, MCV 92, platelet count 315. Sodium 137, potassium 4.3, chloride 103, CO2 of 20, BUN 22, creatinine 1.54. His INR is 1.0. Chest x-ray shows left basal infiltrate with pleural effusion. PAST MEDICAL HISTORY: Significant for history of COPD, bronchial asthma, hypertension. CURRENT MEDICATIONS: 1. Zithromax. 2. Rocephin. 3. Finasteride 5 mg 4. Breo Ellipta once a day. 5. Oxybutynin 5 mg a day. 6. Flomax 0.4 mg. 7. Diltiazem 30 mg 3 times a day. 8. Lovenox 40 mg a day. 9. Rocephin 10. Zithromax. ALLERGIES: NO KNOWN DRUG ALLERGIES. SOCIAL HISTORY: He is , lives in assisted living facility. He is retired. Has 1 son. He has a long history of smoking 2 packs a day which he continues. He used to drink 6 ounces of gin. FAMILY HISTORY: Noncontributory. REVIEW OF SYSTEMS: Normally he is up, around and active. Denies any seizure, stroke or epilepsy. No malignancy. PHYSICAL EXAMINATION: GENERAL: Elderly male, mild short of breath, not in any acute distress. VITAL SIGNS: Blood pressure 168/92, heart rate 92, respirations 21, temperature 98.8. HEENT: Pupils are equal and reactive to light. He has right eye cataract surgery done. Oral mucosa and nasal mucosa normal. NECK: JVD not raised. CHEST: He has dull percussion noted, decreased breath sounds at the left base. CARDIOVASCULAR: S1, S2 normal. ABDOMEN: Soft, nondistended. Bowel sounds are present. EXTREMITIES: No edema. IMPRESSION: 1. Left lung pneumonia. 2. Pleural effusion, possible parapneumonic pleural effusion. 3. Chronic obstructive pulmonary disease. 4. Nicotine use. 5. Alcohol use. 6. Hypertension. PLAN: I discussed with the patient. We will continue with antibiotic, aerosol treatment, supplement his oxygen. Monitor his blood pressure. He will need a thoracentesis diagnostic, as well as therapeutic. We will consult interventional radiology. Further treatment will depend on the course in the hospital. Thank you,for this consult. MD LAURA Chapman//ryan , 06:38 PM , 07:01 PM MTDJose
[2018-01-16] MEDS: TAMSULOSIN HCL 0.4 MG CAP PO SCH (22:20)
[2018-01-16] MEDS: DOCUSATE SODIUM 50 MG/SENNA 8.6 MG TAB PO SCH (22:20)
[2018-01-16] MEDS: ZOLPIDEM TARTRATE 5 MG TAB PO PRN (22:20)
[2018-01-16] MEDS: traZODone HCL 100 MG TAB PO SCH (22:20)
[2018-01-16] MEDS: SODIUM CHLORIDE 0.9% FLUSH 10 ML FLUSH IV FLUSH SCH (22:20)
[2018-01-16] MEDS: OXYBUTYNIN CHLORIDE 5 MG TAB PO SCH (22:21)
[2018-01-17] VITALS (10 sets, daily range): BP systolic 153–186; BP diastolic 68–84; PULSE 61–83; RESP 18–20; TEMP 97.2–98.1; O2SAT 92–97
[2018-01-17] MEDS: SODIUM CHLOR 0.9% 1000 ML INJ 1,000 ML IV SCH ×3 (01:05→22:32)
[2018-01-17 07:48] LABS: AUTOMATED NEUTROPHIL # 4.2 TH/MM3 (1.8-7.7); BASOPHIL % 0.5 % (0.0-2.0); EOSINOPHIL # 0.4 TH/MM3 (0-0.4); EOSINOPHIL % 6.4 % (0.0-4.0); HEMATOCRIT 36.8 % (39.0-51.0); HEMOGLOBIN 11.8 GM/DL (13.0-17.0); LYMPH % 15.6 % (9.0-44.0); MEAN CELL VOLUME 97.3 FL (80.0-100.0); MEAN CORPUSCULAR HEMOGLOBIN 31.3 PG (27.0-34.0); MEAN CORPUSCULAR HGB CONC 32.2 % (32.0-36.0); MEAN PLATELET VOLUME 9.1 FL (7.0-11.0); MONO % 10.8 % (0.0-8.0); MONOCYTE # 0.7 TH/MM3 (0-0.9); NEUT % 66.7 % (16.0-70.0); PLATELET COUNT 264 TH/MM3 (150-450); RED BLOOD COUNT 3.78 MIL/MM3 (4.50-5.90); RED CELL DISTRIBUTION WIDTH 13.6 % (11.6-17.2); WHITE BLOOD COUNT 6.3 TH/MM3 (4.0-11.0)
[2018-01-17 07:57] LABS: ALBUMIN 2.2 GM/DL (3.4-5.0); AST (GOT) 30 U/L (15-37); BICARBONATE 16.3 MEQ/L (21.0-32.0); CALCIUM 8.8 MG/DL (8.5-10.1); CHLORIDE 110 MEQ/L (98-107); CREATININE 1.21 MG/DL (0.60-1.30); GLOMERULAR FILTRATION RATE 58 ML/MIN (>89); GLUCOSE,RANDOM 77 MG/DL (74-106); SODIUM (NA) 139 MEQ/L (136-145)
[2018-01-17 07:58] LABS: ALT (GPT) 36 U/L (12-78); BLOOD UREA NITROGEN 18 MG/DL (7-18)
[2018-01-17 08:00] LABS: ALKALINE PHOSPHATASE 124 U/L (45-117); TOTAL BILIRUBIN ADULT 0.5 MG/DL (0.2-1.0); TOTAL PROTEIN 6.5 GM/DL (6.4-8.2)
[2018-01-17] MEDS: SODIUM CHLORIDE 0.9% FLUSH 10 ML FLUSH IV FLUSH SCH ×2 (08:36→19:46)
[2018-01-17] MEDS: FLUTICASONE 200 MCG/VILANTEROL 25 MCG INHALER INH SCH (08:36)
[2018-01-17] MEDS: FINASTERIDE 5 MG TAB PO SCH (08:38)
[2018-01-17] MEDS: DILTIAZEM HCL 30 MG TAB PO SCH ×3 (08:38→16:50)
[2018-01-17] MEDS: DOCUSATE SODIUM 50 MG/SENNA 8.6 MG TAB PO SCH ×2 (08:38→19:46)
[2018-01-17] MEDS: OXYBUTYNIN CHLORIDE 5 MG TAB PO SCH ×2 (08:38→19:46)
[2018-01-17] MEDS: CYANOCOBALAMIN 1,000 MCG TAB PO SCH (08:39)
[2018-01-17] MEDS ORDERED: DOXAZOSIN MESYLATE 4 MG TAB PO SCH (09:00)
[2018-01-17] MEDS ORDERED: METHYLCELLULOSE PO SCH (09:00)
--- NOTE | 2018-01-17 09:00 | ECHRPT ---
Indication: CAD CONCLUSIONS The left ventricular systolic function is low normal with an estimated ejection fraction in the rang e of 50- 55%. Sigmoid septum normal for age Normal left ventricular size. Mild mitral valve regurgitation. The pulmonary valve is not well visualized. The inferior vena cava was not well visualized. BP: / HR: 87 Rhythm: Sinus Technical Quality:Technically difficult study FINDINGS LEFT VENTRICLE The left ventricular systolic function is low normal with an estimated ejection fraction in the rang e of 50- 55%. Nonobstructive prominent basal hypertrophy is present consistent with Sigmoid septum normal for age. Normal left ventricular size. RIGHT VENTRICLE Normal right ventricular size and systolic function. LEFT ATRIUM The left atrial size is normal. RIGHT ATRIUM The right atrial size is normal. ATRIAL SEPTUM Normal atrial septal thickness without atrial level shunting by limited color doppler interrogation. AORTA The aortic root and proximal ascending aorta are normal in size on limited imaging. MITRAL VALVE Mild mitral valve regurgitation. AORTIC VALVE Trileaflet aortic valve. No aortic valve stenosis or regurgitation. TRICUSPID VALVE Structurally normal tricuspid valve. No tricuspid valve stenosis or regurgitation. PULMONARY VALVE The pulmonary valve is not well visualized. VESSELS The inferior vena cava was not well visualized. PERICARDIUM No pericardial effusion. Nithin Guzman MD (Electronically Signed) Final Date:17 January 2018 08:59
[2018-01-17] MEDS ORDERED: ACETAMINOPHEN/HYDROcodone 325 MG/5 MG TAB PO PRN (10:30)
--- NOTE | 2018-01-17 12:03 | HHI.HP ---
History of Present Illness Service [facility] Primary Care Physician Tez Sidhu, DO Admission Diagnosis acute pneumonia, pleural effusion, chest pain Diagnoses: (1) Pleural effusion on left Diagnosis: Secondary (2) Left lower lobe pneumonia Diagnosis: Principal Review of Systems Constitutional: DENIES: Fever, Chills, Change in appetite Endocrine: DENIES: Heat/cold intolerance Eyes: DENIES: Blurred vision, Eye pain Ears, nose, mouth, throat: DENIES: Tinnitus, Hearing loss, Vertigo, Nasal discharge, Oral lesions, Throat pain, Hoarseness, Ear Pain, Running Nose, Epistaxis, Sinus Pain, Toothache, Odynophagia Respiratory: COMPLAINS OF: Cough, Shortness of breath Cardiovascular: COMPLAINS OF: Chest pain Gastrointestinal: DENIES: Abdominal pain, Black stools, Bloody stools, Constipation, Diarrhea, Nausea, Vomiting, Difficulty Swallowing, Anorexia Genitourinary: DENIES: Sexual dysfunction, Urinary frequency, Urinary incontinence, Urgency, Hematuria, Dysuria, Nocturia, Penile Discharge, Testicular Pain, Testicular Swelling Musculoskeletal: DENIES: Joint pain, Muscle aches, Stiffness, Joint Swelling, Back pain, Neck pain Integumentary: DENIES: Abnormal pigmentation, Nail changes, Pruritus, Rash Hematologic/lymphatic: DENIES: Bruising, Lymphadenopathy Immunologic/allergic: DENIES: Eczema, Urticaria Neurologic: COMPLAINS OF: Abnormal gait, Localized weakness Psychiatric: DENIES: Anxiety, Confusion, Mood changes, Depression, Hallucinations, Agitation, Suicidal Ideation, Homicidal Ideation, Delusions Past Family Social History Allergies: Coded Allergies: No Known Allergies (Verified Allergy, Unknown, 01/16/18) Past Medical History COPD due to smoking which he just quit ~2 months ago. He also has a long H/O HTN and has BPH without obstruction. Reported Medications Current Medications Medications (Trade) Dose Ordered Sig/Nayeli Route Start Time Stop Time Status Last Admin (NS Flush) 2 ml UNSCH PRN IVF 01/16/18 13:45 Sodium Chloride 1,000 ml @ 100 mls/hr Q10H IV 01/16/18 16:00 01/17/18 11:09 (NS Flush) 2 ml UNSCH PRN IV FLUSH 01/16/18 15:00 (NS Flush) 2 ml BID IV FLUSH 01/16/18 21:00 01/16/18 22:20 (Tylenol) 650 mg Q4H PRN PO 01/16/18 15:00 01/16/18 20:57 (Ambien) 5 mg HS PRN PO 01/16/18 15:00 01/16/18 22:20 (Lovenox Inj) 40 mg Q24H SQ 01/16/18 16:00 01/16/18 16:16 (Narcan Inj) 0.4 mg UNSCH PRN IV PUSH 01/16/18 15:00 (Elvie-Colace) 1 tab BID PO 01/16/18 21:00 01/17/18 08:38 (Milk Of Magnesia Liq) 30 ml Q12H PRN PO 01/16/18 15:00 (Senokot) 17.2 mg Q12H PRN PO 01/16/18 15:00 (Dulcolax Supp) 10 mg DAILY PRN RECTAL 01/16/18 15:00 (Lactulose Liq) 30 ml DAILY PRN PO 01/16/18 15:00 Azithromycin 500 mg/Sodium Chloride 250 ml @ 250 mls/hr Q24H IV 01/17/18 14:00 Ceftriaxone Sodium 2000 mg/ Sodium Chloride 100 ml @ 200 mls/hr Q24H IV 01/17/18 14:00 (Vitamin B12) 5,000 mcg DAILY PO 01/17/18 09:00 01/17/18 08:39 (Cardizem) 30 mg TID PO 01/16/18 18:00 01/17/18 11:11 (Cardura) 8 mg DAILY PO 01/17/18 09:00 01/17/18 08:39 (Proscar) 5 mg DAILY PO 01/17/18 09:00 01/17/18 08:38 (Breo Ellipta 200-25 Inh) 1 puff DAILY INH 01/17/18 09:00 01/17/18 08:36 (Ditropan) 5 mg Q12HR PO 01/16/18 21:00 01/17/18 08:38 (Flomax) 0.4 mg HS PO 01/16/18 21:00 01/16/18 22:20 Patient Own Medication PT OWN MED: (Methylcellulose Pow... DAILY PO 01/17/18 09:00 Future Hold (Desyrel) 200 mg HS PO 01/16/18 21:00 01/16/18 22:20 (Mosheim 5-325 Mg) 1 tab Q4H PRN PO 01/17/18 10:30 01/17/18 11:33 Family History He denies FH cardiac disease. Social History Resides in [facility]. Quit ETOH and Cigs on adm ~ 2 months ago. Physical Exam Vital Signs Vital Signs Date Time Temp Pulse Resp B/P (MAP) Pulse Ox O2 Delivery O2 Flow Rate FiO2 01/17/18 08:00 97.2 63 20 175/74 (107) 97 01/17/18 07:59 Nasal Cannula 2.00 Humidified 01/17/18 06:27 82 19 186/84 (118) 92 01/17/18 04:00 Nasal Cannula 2.00 Humidified 01/17/18 04:00 97.6 79 18 159/71 (100) 97 01/17/18 03:49 61 01/17/18 00:00 97.8 68 18 164/74 (104) 95 01/17/18 00:00 Nasal Cannula 2.00 Humidified 01/16/18 23:44 72 01/16/18 21:41 Nasal Cannula 2.00 Humidified 01/16/18 21:41 80 01/16/18 21:11 98.1 83 18 179/79 (112) 95 01/16/18 21:02 01/16/18 17:36 92 21 168/92 (117) 94 Nasal Cannula 2.00 01/16/18 15:30 103 20 166/85 (112) 98 Nasal Cannula 2.00 01/16/18 13:54 98.8 107 24 168/82 (110) 92 Room Air 01/16/18 13:38 Nasal Cannula 2.00 01/16/18 13:38 168/82 (110) 169/94 (119) 01/16/18 13:34 Nasal Cannula 2.00 01/16/18 13:32 98.8 107 24 168/82 (110) 92 01/16/18 13:32 92 Room Air Physical Exam GENERAL: This is a well-nourished, well-developed patient, in no apparent distress. SKIN: No rashes, ecchymoses or lesions. Cool and dry. HEAD: Atraumatic. Normocephalic. No temporal or scalp tenderness. EYES: Pupils equal round and reactive. Extraocular motions intact. No scleral icterus. No injection or drainage. ENT: Nose without bleeding, purulent drainage or septal hematoma. Throat without erythema, tonsillar hypertrophy or exudate. Uvula midline. Airway patent. NECK: Trachea midline. No JVD or lymphadenopathy. Supple, nontender, no meningeal signs. CARDIOVASCULAR: Regular rate and rhythm without murmurs, gallops, or rubs. RESPIRATORY: Clear to auscultation. Decreased breath sounds on the left. No wheezes, rales, or rhonchi. GASTROINTESTINAL: Abdomen soft, non-tender, nondistended. No hepato-splenomegaly , or palpable masses. No guarding. MUSCULOSKELETAL: Extremities without clubbing, cyanosis, or edema. No joint tenderness, effusion, or edema noted. No calf tenderness. Negative Homans sign bilaterally. Decreased strength BLE NEUROLOGICAL: Awake and alert. Cranial nerves II through XII intact. Sensory grossly within normal limits. Normal speech. Laboratory Laboratory Tests Test 01/16/18 13:40 01/16/18 14:25 01/17/18 07:18 White Blood Count 11.4 6.3 Red Blood Count 3.36 3.78 Hemoglobin 11.0 11.8 Hematocrit 31.2 36.8 Mean Corpuscular Volume 92.7 97.3 Mean Corpuscular Hemoglobin 32.7 31.3 Mean Corpuscular Hemoglobin Concent 35.2 32.2 Red Cell Distribution Width 13.1 13.6 Platelet Count 315 264 Mean Platelet Volume 8.6 9.1 Neutrophils (%) (Auto) 74.2 66.7 Lymphocytes (%) (Auto) 12.0 15.6 Monocytes (%) (Auto) 10.5 10.8 Eosinophils (%) (Auto) 2.2 6.4 Basophils (%) (Auto) 1.1 0.5 Neutrophils # (Auto) 8.5 4.2 Lymphocytes # (Auto) 1.4 1.0 Monocytes # (Auto) 1.2 0.7 Eosinophils # (Auto) 0.3 0.4 Basophils # (Auto) 0.1 0.0 CBC Comment DIFF FINAL DIFF FINAL Differential Comment Prothrombin Time 10.9 Prothromb Time International Ratio 1.1 Activated Partial Thromboplast Time 32.8 Blood Urea Nitrogen 22 18 Creatinine 1.54 1.21 Random Glucose 90 77 Total Protein 6.6 6.5 Albumin 2.3 2.2 Calcium Level 8.6 8.8 Magnesium Level 2.1 Alkaline Phosphatase 133 124 Aspartate Amino Transf (AST/SGOT) 33 30 Alanine Aminotransferase (ALT/SGPT) 44 36 Total Bilirubin 0.6 0.5 Sodium Level 137 139 Potassium Level 4.3 4.4 Chloride Level 103 110 Carbon Dioxide Level 20.9 16.3 Anion Gap 13 13 Estimat Glomerular Filtration Rate 44 58 Total Creatine Kinase 47 Troponin I LESS THAN 0.02 B-Type Natriuretic Peptide 47 Lipase 79 Lactic Acid Level 1.0 Hematology Comments Date/Time Source Procedure Growth Status 01/16/18 14:25 Blood Peripheral Aerobic Blood Culture - Preliminary NO GROWTH IN 1 DAY Resulted 01/16/18 14:25 Blood Peripheral Anaerobic Blood Culture - Preliminary NO GROWTH IN 1 DAY Resulted Result Diagram: 01/17/18 0718 01/17/18 0718 Imaging Last Impressions Chest X-Ray 01/16/18 1334 Signed Impressions: CONCLUSION: Consolidation and small to moderate pleural effusion at the left lung base. Course Intermittent left sided chest pain for three days initially improved with antacids but then worse without relief by TNG and antacids prompting referral to the ED. Caprini VTE Risk Assessment Caprini VTE Risk Assessment: No/Low Risk (score <= 1) Caprini Risk Assessment Model Point Value = 1 Point Value = 2 Point Value = 3 Point Value = 5 Age 41-60 Minor surgery BMI > 25 kg/m2 Swollen legs Varicose veins or History of unexplained or recurrent spontaneous Oral contraceptives or hormone replacement Sepsis (< 1 month) Serious lung disease, including pneumonia (< 1 month) Abnormal pulmonary function Acute myocardial infarction Congestive heart failure (< 1 month) History of inflammatory bowel disease Medical patient at bed rest Age 61-74 Arthroscopic surgery Major open surgery (> 45 min) Laparoscopic surgery (> 45 min) Malignancy Confined to bed (> 72 hours) Immobilizing plaster cast Central venous access Age >= 75 History of VTE Family history of VTE Factor V Leiden Prothrombin [id number] Lupus anticoagulant Anticardiolipin antibodies Elevated serum homocysteine Heparin-induced thrombocytopenia Other congenital or acquired thrombophilia Stroke (< 1 month) Elective arthroplasty Hip, pelvis, or leg fracture Acute spinal cord injury (< 1 month) Prophylaxis Regimen Total Risk Factor Score Risk Level Prophylaxis Regimen 0-1 Low Early ambulation 2 Moderate Order ONE of the following: *Sequential Compression Device (SCD) *Heparin 5000 units SQ BID 3-4 Higher Order ONE of the following medications: *Heparin 5000 units SQ TID *Enoxaparin/Lovenox 40 mg SQ daily (WT < 150 kg, CrCl > 30 mL/min) *Enoxaparin/Lovenox 30 mg SQ daily (WT < 150 kg, CrCl > 10-29 mL/min) *Enoxaparin/Lovenox 30 mg SQ BID (WT < 150 kg, CrCl > 30 mL/min) AND/OR *Sequential Compression Device (SCD) 5 or more Highest Order ONE of the following medications: *Heparin 5000 units SQ TID (Preferred with Epidurals) *Enoxaparin/Lovenox 40 mg SQ daily (WT < 150 kg, CrCl > 30 mL/min) *Enoxaparin/Lovenox 30 mg SQ daily (WT < 150 kg, CrCl > 10-29 mL/min) *Enoxaparin/Lovenox 30 mg SQ BID (WT < 150 kg, CrCl > 30 mL/min) AND *Sequential Compression Device (SCD) Assessment and Plan Problem List: (1) Tobacco abuse ICD Codes: Z72.0 - Tobacco use Status: Chronic Plan: Now quit times 2 months (2) Weakness ICD Codes: R53.1 - Weakness Status: Chronic Plan: Using W/C but can stand alone, this is not a new problem. (3) HTN (hypertension) ICD Codes: I10 - Essential (primary) hypertension Status: Chronic Plan: Will titrate meds to improve control. (4) BPH (benign prostatic hyperplasia) ICD Codes: N40.0 - Benign prostatic hyperplasia without lower urinary tract symptoms Status: Chronic Plan: Cont present meds from home (5) COPD (chronic obstructive pulmonary disease) ICD Codes: J44.9 - Chronic obstructive pulmonary disease, unspecified Status: Acute Plan: F/U Pulm recommendations and cont antibiotics (6) Left lower lobe pneumonia ICD Codes: J18.1 - Lobar pneumonia, unspecified organism Status: Acute Plan: Cont antibiotics and F/U recommendation per Pulmonary (7) Pleural effusion on left ICD Codes: J90 - Pleural effusion, not elsewhere classified Plan: Per Pulm, he is being referred to IR for thoracentesis. Assessment and Plan LLL PNA and CP associated with pulmonary disease including pleural effusion. Cards following but prelim findings are not compatible with pain from angina. Discussed Condition With patient Discharge Planning Back to SNF Problem Qualifiers (1) Left lower lobe pneumonia: Qualified Codes: J18.1 - Lobar pneumonia, unspecified organism (2) HTN (hypertension): Qualified Codes: I10 - Essential (primary) hypertension (3) BPH (benign prostatic hyperplasia): Qualified Codes: N40.0 - Benign prostatic hyperplasia without lower urinary tract symptoms (4) COPD (chronic obstructive pulmonary disease): Qualified Codes: J44.1 - Chronic obstructive pulmonary disease with (acute) exacerbation Donovan Villeda Jan 17, 2018 12:03
[2018-01-17] MEDS: cefTRIAXone INJ 2,000 MG in SODIUM CHLORIDE 0.9% INJ 100 ML IV SCH (13:39)
[2018-01-17] MEDS: AZITHROMYCIN INJ 500 MG in SODIUM CHLOR 0.9% 250 ML INJ 250 ML IV SCH (15:11)
[2018-01-17] MEDS: ENOXAPARIN SODIUM 40 MG/0.4 ML SYRINGE SQ SCH (15:11)
[2018-01-17] MEDS: ACETAMINOPHEN/HYDROcodone 325 MG/5 MG TAB PO PRN ×3 (15:27→23:51)
--- NOTE | 2018-01-17 15:41 | EKG ---
Date Performed: 01/16/2018 Time Performed: 13:33:25 PTAGE: 73 years EKG: SINUS TACHYCARDIA ABNORMAL RHYTHM ECG PREVIOUS TRACING : 10/21/2017 19.51 Since previous tracing, PACs no longer present, otherwise n o significant change. DOCTOR: Alex Yu Interpretating Date/Time 01/17/2018 15:39:13
--- NOTE | 2018-01-17 18:59 | HHI.PR ---
Subjective Remarks 73 YOWM with COPD,Pn Pl eff Breathing better CP improved Denies sob no Fever Objective Vital Signs Vital Signs Date Time Temp Pulse Resp B/P (MAP) Pulse Ox O2 Delivery O2 Flow Rate FiO2 01/17/18 16:00 83 01/17/18 16:00 98.1 74 18 153/70 (97) 95 01/17/18 12:00 97.9 83 18 153/68 (96) 96 01/17/18 12:00 78 01/17/18 08:00 97.2 63 20 175/74 (107) 97 01/17/18 07:59 Nasal Cannula 2.00 Humidified 01/17/18 06:27 82 19 186/84 (118) 92 01/17/18 04:00 Nasal Cannula 2.00 Humidified 01/17/18 04:00 97.6 79 18 159/71 (100) 97 01/17/18 03:49 61 01/17/18 00:00 97.8 68 18 164/74 (104) 95 01/17/18 00:00 Nasal Cannula 2.00 Humidified 01/16/18 23:44 72 01/16/18 21:41 Nasal Cannula 2.00 Humidified 01/16/18 21:41 80 01/16/18 21:11 98.1 83 18 179/79 (112) 95 01/16/18 21:02 I/O 01/16/18 01/16/18 01/16/18 01/17/18 01/17/18 01/17/18 07:00 15:00 23:00 07:00 15:00 23:00 Intake Total 350 ml 1432 ml 1555 ml 250 ml Output Total 1200 ml 600 ml Balance 350 ml 232 ml 955 ml 250 ml Intake Oral 480 ml 480 ml IV Total 350 ml 952 ml 1075 ml 250 ml Output Urine Total 1200 ml 600 ml # Voids 1 # Bowel Movements 0 Result Diagram: 01/17/1818 01/17/18717 Objective Remarks GENERAL: Elderly male, NAD SKIN: Warm and dry. HEAD: Normocephalic. EYES: No scleral icterus. No injection or drainage. NECK: Supple, trachea midline. No JVD or lymphadenopathy. CARDIOVASCULAR: Regular rate and rhythm without murmurs, gallops, or rubs. RESPIRATORY: Breath sounds equal bilaterally. No accessory muscle use. Decreased BS left base GASTROINTESTINAL: Abdomen soft, non-tender, nondistended. MUSCULOSKELETAL: No cyanosis, or edema. BACK: Nontender without obvious deformity. No CVA tenderness. A/P Assessment and Plan IMPRESSION: 1. Left lung pneumonia. 2. Pleural effusion, possible parapneumonic pleural effusion. 3. Chronic obstructive pulmonary disease. 4. Nicotine use. 5. Alcohol use. 6. Hypertension. PLAN: Cont Abx Aerosol nebs Supplement 02 US Guided Left TC in AM Jose Giron MD Jan 17, 2018 18:59
[2018-01-17] MEDS: TAMSULOSIN HCL 0.4 MG CAP PO SCH (19:46)
[2018-01-17] MEDS: traZODone HCL 100 MG TAB PO SCH (19:46)
[2018-01-18] VITALS (14 sets, daily range): BP systolic 146–185; BP diastolic 75–84; PULSE 60–81; RESP 16–22; TEMP 97.4–98.2; O2SAT 92–96
[2018-01-18] MEDS: ACETAMINOPHEN/HYDROcodone 325 MG/5 MG TAB PO PRN ×6 (06:34→23:30)
[2018-01-18] MEDS: CYANOCOBALAMIN 1,000 MCG TAB PO SCH (08:22)
[2018-01-18] MEDS: OXYBUTYNIN CHLORIDE 5 MG TAB PO SCH ×2 (08:23→20:24)
[2018-01-18] MEDS: DILTIAZEM HCL 30 MG TAB PO SCH ×3 (08:23→17:24)
[2018-01-18] MEDS: FINASTERIDE 5 MG TAB PO SCH (08:23)
[2018-01-18] MEDS: DOXAZOSIN MESYLATE 4 MG TAB PO SCH (08:24)
[2018-01-18] MEDS: DOCUSATE SODIUM 50 MG/SENNA 8.6 MG TAB PO SCH ×2 (08:24→20:26)
[2018-01-18] MEDS: FLUTICASONE 200 MCG/VILANTEROL 25 MCG INHALER INH SCH (08:25)
[2018-01-18] MEDS: SODIUM CHLORIDE 0.9% FLUSH 10 ML FLUSH IV FLUSH SCH ×2 (08:25→20:24)
[2018-01-18] MEDS: SODIUM CHLOR 0.9% 1000 ML INJ 1,000 ML IV SCH ×2 (08:40→18:00)
--- NOTE | 2018-01-18 09:38 | PD.RAD ---
Post US Procedure Prog Note Pre Procedure Diagnosis: (1) Pleural effusion on left Post Procedure Diagnosis: (1) Pleural effusion on left Procedure Date: Jan 18, 2018 Supervising Radiologist: George Correia Proceduralist/Assist: Arlene Campbell RDMS Estimated blood loss: none Anesthesia: Local Plan of Activity Patient to Unit: ROPU Patient Condition: Good See PACS Report for procedural detail/treatment Drainage Procedure Procedure 1 Imaging Guidance: Ultrasound Side: Left Procedure Type: Thoracentesis Drainage: Suction Fluid Removal (CCs): 450 Fluid Description: Clear, Yellow Plan post cxr then return to floor. George Correia MD Jan 18, 2018 09:38
--- NOTE | 2018-01-18 09:56 | HHI.PR ---
Subjective Remarks Off floor for test Objective Vital Signs Date Time Temp Pulse Resp B/P (MAP) Pulse Ox O2 Delivery O2 Flow Rate FiO2 01/18/18 08:59 98.2 77 16 169/80 (109) 92 01/18/18 08:00 Room Air 2.00 Nasal Cannula 01/18/18 05:00 21 01/18/18 04:00 98.1 80 18 178/78 (111) 95 01/18/18 04:00 Nasal Cannula 2.00 01/18/18 03:54 60 01/18/18 00:00 Nasal Cannula 2.00 01/18/18 00:00 97.4 69 18 172/79 (110) 96 01/17/18 23:50 67 01/17/18 20:00 Nasal Cannula 2.00 01/17/18 20:00 97.2 79 18 176/78 (110) 94 01/17/18 19:48 76 01/17/18 16:00 83 01/17/18 16:00 98.1 74 18 153/70 (97) 95 01/17/18 12:00 97.9 83 18 153/68 (96) 96 01/17/18 12:00 78 I/O 01/17/18 01/17/18 01/17/18 01/18/18 01/18/18 01/18/18 07:00 15:00 23:00 07:00 15:00 23:00 Intake Total 1432 ml 1555 ml 250 ml 120 ml Output Total 1200 ml 600 ml 650 ml Balance 232 ml 955 ml 250 ml -530 ml Intake Oral 480 ml 480 ml 120 ml IV Total 952 ml 1075 ml 250 ml Output Urine Total 1200 ml 600 ml 650 ml # Bowel Movements 0 0 Result Diagram: 01/17/18 0718 01/17/18 0718 Imaging Last 72 hours Impressions Chest X-Ray 01/16/18 1334 Signed Impressions: CONCLUSION: Consolidation and small to moderate pleural effusion at the left lung base. Medications and IVs Current Medications Medications (Trade) Dose Ordered Sig/Nayeli Route Start Time Stop Time Status Last Admin (NS Flush) 2 ml UNSCH PRN IVF 01/16/18 13:45 Sodium Chloride 1,000 ml @ 100 mls/hr Q10H IV 01/16/18 16:00 01/18/18 08:40 (NS Flush) 2 ml UNSCH PRN IV FLUSH 01/16/18 15:00 (NS Flush) 2 ml BID IV FLUSH 01/16/18 21:00 01/17/18 19:46 (Tylenol) 650 mg Q4H PRN PO 01/16/18 15:00 01/16/18 20:57 (Ambien) 5 mg HS PRN PO 01/16/18 15:00 01/16/18 22:20 (Lovenox Inj) 40 mg Q24H SQ 01/16/18 16:00 01/16/18 16:16 (Narcan Inj) 0.4 mg UNSCH PRN IV PUSH 01/16/18 15:00 (Elvie-Colace) 1 tab BID PO 01/16/18 21:00 01/17/18 19:46 (Milk Of Magnesia Liq) 30 ml Q12H PRN PO 01/16/18 15:00 (Senokot) 17.2 mg Q12H PRN PO 01/16/18 15:00 (Dulcolax Supp) 10 mg DAILY PRN RECTAL 01/16/18 15:00 (Lactulose Liq) 30 ml DAILY PRN PO 01/16/18 15:00 Azithromycin 500 mg/Sodium Chloride 250 ml @ 250 mls/hr Q24H IV 01/17/18 14:00 01/17/18 15:11 Ceftriaxone Sodium 2000 mg/ Sodium Chloride 100 ml @ 200 mls/hr Q24H IV 01/17/18 14:00 01/17/18 13:39 (Vitamin B12) 5,000 mcg DAILY PO 01/17/18 09:00 01/18/18 08:22 (Cardizem) 30 mg TID PO 01/16/18 18:00 01/18/18 08:23 (Proscar) 5 mg DAILY PO 01/17/18 09:00 01/18/18 08:23 (Breo Ellipta 200-25 Inh) 1 puff DAILY INH 01/17/18 09:00 01/18/18 08:25 (Ditropan) 5 mg Q12HR PO 01/16/18 21:00 01/18/18 08:23 (Flomax) 0.4 mg HS PO 01/16/18 21:00 01/17/18 19:46 Patient Own Medication PT OWN MED: (Methylcellulose Pow... DAILY PO 01/17/18 09:00 Future Hold (Desyrel) 200 mg HS PO 01/16/18 21:00 01/17/18 19:46 (Cardura) 12 mg DAILY PO 01/18/18 09:00 01/18/18 08:24 (Edison 5-325 Mg) 1 tab Q4H PRN PO 01/17/18 14:45 (Edison 5-325 Mg) 2 tab Q4H PRN PO 01/17/18 14:45 01/18/18 06:34 Assessment and Plan Problem List: (1) Pleural effusion on left ICD Codes: J90 - Pleural effusion, not elsewhere classified (2) Left lower lobe pneumonia ICD Codes: J18.1 - Lobar pneumonia, unspecified organism Status: Acute (3) COPD (chronic obstructive pulmonary disease) ICD Codes: J44.9 - Chronic obstructive pulmonary disease, unspecified Status: Acute (4) Hypertension ICD Codes: I10 - Essential (primary) hypertension Status: Chronic Problem Qualifiers (1) Left lower lobe pneumonia: Qualified Codes: J18.1 - Lobar pneumonia, unspecified organism (2) COPD (chronic obstructive pulmonary disease): Qualified Codes: J44.1 - Chronic obstructive pulmonary disease with (acute) exacerbation Sulma Macias Jan 18, 2018 09:56
--- NOTE | 2018-01-18 09:56 | RADRPT ---
EXAM DATE: 01/18/2018 9:51 AM EDT AGE/SEX: 73 years / Male INDICATIONS: Post left side thoracentesis. CLINICAL DATA: This is the patient's initial encounter. Patient reports that signs and symptoms have been present for 1 day and indicates a pain score of 5/10. MEDICAL/SURGICAL HISTORY: . Renal calculi. Chronic obstructive pulmonary disease. Renal cell ca rcinoma . Nephrectomy, left. [place] [facility] [place]. . FINDINGS: A single frontal expiratory view of the chest was performed. As seen previously, there is left basila r consolidation with probable associated effusion. The effusion appears to be smaller when compared t o the prior no pneumothorax. Right lung is clear. There is still levo positioning of the heart and me diastinal structures characteristic of volume loss in the left hemithorax. Atherosclerotic calcificat ion of the aortic arch. Heart size appears to be normal. Osseous structures are intact CONCLUSION: 1. Persistent left basilar consolidation and effusion. The effusion appears to be somewhat smaller w hen compared to the prior. There is no pneumothorax. 2. Stable levo positioning of the heart and mediastinal structures. Electronically signed by: Durga Moreira MD 01/18/2018 9:55 AM EDT
[2018-01-18] MEDS ORDERED: LIDOCAINE HCL 1% 20 ML VIAL ONE (10:29)
[2018-01-18] MEDS: LISINOPRIL 5 MG TAB PO SCH (11:20)
[2018-01-18 11:23] LABS: TOTAL PROTEIN,PLEURAL FLUID 2.4 GM/DL
[2018-01-18 11:56] LABS: PLEURAL FLUID EOS 14 %; PLEURAL FLUID LYMPHS 4 %; PLEURAL FLUID MESOTHELIAL 2 %; PLEURAL FLUID MONOS 5 %; PLEURAL FLUID POLYS (SEGS) 75 %; PLEURAL FLUID RBC 299 /MM3 (0-0); PLEURAL FLUID WBC 5658 /MM3 (0-10)
--- NOTE | 2018-01-18 12:04 | RADRPT ---
EXAM DATE: 01/18/2018 10:22 AM EDT AGE/SEX: 73 years / Male INDICATIONS: Left pleural effusion. CLINICAL DATA: This is the patient's initial encounter. Patient reports that signs and symptoms have been present for 1 day and indicates a pain score of 0/10. MEDICAL/SURGICAL HISTORY: Chronic obstructive pulmonary disease. Hypertension. Hiatal hernia. B enign prostatic hyperplasia. Renal disease. Peripheral neuropathy. Gait problems. Kidney cancer. Left lower lobe Pneumonia. Tonsillectomy. Inguinal hernia repair. Partial right nephrectomy. Right leg surgery/rods. COMPARISON: [facility] [place]ST EXPIRATION [place], 01/18/2018. [facility] [place]ST [place], 01/16/2018. . [facility], CT chest, 05/19/2012. FLUID: Total volume of 450 cc of clear, yellow fluid was removed. Fluid was sent to lab for ordered studies. . . TECHNIQUE: Ultrasound guidance for thoracentesis. Thoracentesis. The risks, benefits, and alternatives to ultrasound guided thoracentesis were explained to the patien t in lay simple terms, including the risk of bleeding and infection. Written and verbal informed con sent was obtained. Appropriate area for left thoracentesis was marked under ultrasound guidance with the patient in the upright position. Overlying skin was prepped and draped in the usual sterile fashion and with local anesthetic, a dermatotomy was made with an 11 blade scalpel. A 6 Amharic thoracentesis catheter was p laced in the pleural space and fluid was removed. Catheter was then removed and a sterile dressing a pplied. There were no immediate complications. The patient tolerated the procedure well and the left the ultrasound suite in stable condition. Chest radiograph is to be obtained. FINDINGS: During the procedure, air and fluid were removed simultaneously. In retrospect, I believe there is a small left pneumothorax on the prior chest x-ray. CONCLUSION: 1. Uncomplicated left thoracentesis with removal of 450 cc of fluid. 2. Air was removed during the thoracentesis as well indicating that a pneumothorax was present. Post procedure chest x-ray demonstrates general lucency in the left lung without a clear pleural line visu alized. Suggest obtaining a chest CT for further evaluation to determine the size of the suspected pn eumothorax. 3. Findings were telephoned to Dr. Giron. Electronically signed by: George Correia MD 01/18/2018 12:02 PM EDT
[2018-01-18] MEDS: AZITHROMYCIN INJ 500 MG in SODIUM CHLOR 0.9% 250 ML INJ 250 ML IV SCH (13:40)
[2018-01-18] MEDS: cefTRIAXone INJ 2,000 MG in SODIUM CHLORIDE 0.9% INJ 100 ML IV SCH (13:41)
[2018-01-18] MEDS: ENOXAPARIN SODIUM 40 MG/0.4 ML SYRINGE SQ SCH (15:23)
--- NOTE | 2018-01-18 18:07 | HHI.PR ---
Subjective Remarks 73 YOWM with COPD,Pn Pl eff Breathing better CP improved Denies sob no Fever Had TC done, decreased lung density, small ptx 9 was presenr before TC) Objective Vital Signs Vital Signs Date Time Temp Pulse Resp B/P (MAP) Pulse Ox O2 Delivery O2 Flow Rate FiO2 01/18/18 17:18 93 21 01/18/18 16:00 77 01/18/18 12:00 97.8 72 21 179/81 (113) 93 01/18/18 12:00 71 01/18/18 10:10 70 18 158/81 (106) 95 01/18/18 09:55 97.5 74 18 146/77 (100) 93 01/18/18 08:59 98.2 77 16 169/80 (109) 92 01/18/18 08:10 97.4 75 20 185/84 (117) 93 01/18/18 08:00 Room Air 2.00 Nasal Cannula 01/18/18 08:00 62 01/18/18 05:00 21 01/18/18 04:00 98.1 80 18 178/78 (111) 95 01/18/18 04:00 Nasal Cannula 2.00 01/18/18 03:54 60 01/18/18 00:00 Nasal Cannula 2.00 01/18/18 00:00 97.4 69 18 172/79 (110) 96 01/17/18 23:50 67 01/17/18 20:00 Nasal Cannula 2.00 01/17/18 20:00 97.2 79 18 176/78 (110) 94 01/17/18 19:48 76 I/O 01/17/18 01/17/18 01/17/18 01/18/18 01/18/18 01/18/18 07:00 15:00 23:00 07:00 15:00 23:00 Intake Total 1432 ml 1555 ml 250 ml 120 ml Output Total 1200 ml 600 ml 650 ml Balance 232 ml 955 ml 250 ml -530 ml Intake Oral 480 ml 480 ml 120 ml IV Total 952 ml 1075 ml 250 ml Output Urine Total 1200 ml 600 ml 650 ml # Bowel Movements 0 0 Result Diagram: 01/17/1818 01/17/18717 Objective Remarks GENERAL: Elderly male, NAD SKIN: Warm and dry. HEAD: Normocephalic. EYES: No scleral icterus. No injection or drainage. NECK: Supple, trachea midline. No JVD or lymphadenopathy. CARDIOVASCULAR: Regular rate and rhythm without murmurs, gallops, or rubs. RESPIRATORY: Breath sounds equal bilaterally. No accessory muscle use. Decreased BS left base GASTROINTESTINAL: Abdomen soft, non-tender, nondistended. MUSCULOSKELETAL: No cyanosis, or edema. BACK: Nontender without obvious deformity. No CVA tenderness. A/P Assessment and Plan IMPRESSION: 1. Left lung pneumonia. 2. Pleural effusion, possible parapneumonic pleural effusion. 3. Chronic obstructive pulmonary disease. 4. Nicotine use. 5. Alcohol use. 6. Hypertension. PLAN: Cont Abx Aerosol nebs Supplement 02 CT chest to evaluate PTX Jose Giron MD Jan 18, 2018 18:07
[2018-01-18] MEDS: traZODone HCL 100 MG TAB PO SCH (20:24)
[2018-01-18] MEDS: TAMSULOSIN HCL 0.4 MG CAP PO SCH (20:24)
[2018-01-19] VITALS (14 sets, daily range): BP systolic 118–208; BP diastolic 54–90; PULSE 58–108; RESP 12–18; TEMP 97.5–98.1; O2SAT 89–98
--- NOTE | 2018-01-19 00:58 | RADRPT ---
EXAM DATE: 01/19/2018 12:47 AM EDT AGE/SEX: 73 years / Male INDICATIONS: Respiratory distress. CLINICAL DATA: This is the patient's initial encounter. Patient reports that signs and symptoms have been present for 1 day and indicates a pain score of 4/10. MEDICAL/SURGICAL HISTORY: Hypertension. Chronic obstructive pulmonary disease. Renal cancer. . Pa rtial nephrectomy. RADIATION DOSE: 8.59 CTDI (mGy) COMPARISON: [facility] – [place]AX [place]/O [place]AST, 10/13/2017. . TECHNIQUE: Multiple contiguous axial images were obtained through the chest without contrast. Image s were obtained in suspended respiration using multiple row detector helical technique. Using automa darius exposure control and adjustment of the mA and/or kV according to patient size, radiation dose was kept as low as reasonably achievable to obtain optimal diagnostic quality images. FINDINGS: Lungs: There is a new right-sided pneumothorax with approximately 1.4 cm of separation at the apex. There is a new area of nonspecific parenchymal consolidation in the posterior left upper lung. There is compressive atelectasis of the left lower lung. There is a left-sided effusion. The right lung is well aerated with some atelectasis in the posterior right lung base. Mediastinum: There is good visualization of the great vessels of the middle mediastinum. No evidenc e of mediastinal or hilar adenopathy/mass. Pleurae: No evidence of focal thickening or pleural effusion. Axillae: Unremarkable. Bony Structures: Primary bony degenerative changes. Miscellaneous: The examination was extended to include the upper abdomen, and both adrenal glands ar e normal in size and configuration. CONCLUSION: 1. New small to moderate left-sided pneumothorax. 2. New nonspecific parenchymal consolidation in the posterior left upper lung. 3. New compressive atelectasis in the left lower lung with a left-sided pleural effusion. 4. Right lower lung posterior atelectasis. Electronically signed by: Merrick Casanova MD 01/19/2018 12:57 AM EDT
[2018-01-19] MEDS: SODIUM CHLOR 0.9% 1000 ML INJ 1,000 ML IV SCH ×2 (01:04→16:08)
[2018-01-19] MEDS: ACETAMINOPHEN/HYDROcodone 325 MG/5 MG TAB PO PRN ×5 (03:31→23:40)
[2018-01-19 07:06] LABS: AUTOMATED NEUTROPHIL # 4.6 TH/MM3 (1.8-7.7); BASOPHIL # 0.1 TH/MM3 (0-0.2); BASOPHIL % 0.8 % (0.0-2.0); EOSINOPHIL # 0.5 TH/MM3 (0-0.4); EOSINOPHIL % 7.3 % (0.0-4.0); HEMATOCRIT 28.9 % (39.0-51.0); HEMOGLOBIN 9.6 GM/DL (13.0-17.0); LYMPH % 19.6 % (9.0-44.0); LYMPHOCYTE # 1.4 TH/MM3 (1.0-4.8); MEAN CELL VOLUME 94.3 FL (80.0-100.0); MEAN CORPUSCULAR HEMOGLOBIN 31.3 PG (27.0-34.0); MEAN CORPUSCULAR HGB CONC 33.2 % (32.0-36.0); MEAN PLATELET VOLUME 8.6 FL (7.0-11.0); MONO % 7.6 % (0.0-8.0); MONOCYTE # 0.5 TH/MM3 (0-0.9); NEUT % 64.7 % (16.0-70.0); PLATELET COUNT 242 TH/MM3 (150-450); RED BLOOD COUNT 3.06 MIL/MM3 (4.50-5.90); RED CELL DISTRIBUTION WIDTH 13.5 % (11.6-17.2); WHITE BLOOD COUNT 7.1 TH/MM3 (4.0-11.0)
[2018-01-19 07:29] LABS: BICARBONATE 17.9 MEQ/L (21.0-32.0); CALCIUM 8.3 MG/DL (8.5-10.1); CREATININE 1.16 MG/DL (0.60-1.30)
[2018-01-19] MEDS: CYANOCOBALAMIN 1,000 MCG TAB PO SCH (08:51)
[2018-01-19] MEDS: LISINOPRIL 5 MG TAB PO SCH (08:52)
[2018-01-19] MEDS: DOXAZOSIN MESYLATE 4 MG TAB PO SCH (08:52)
[2018-01-19] MEDS: DILTIAZEM HCL 30 MG TAB PO SCH ×3 (08:52→17:38)
[2018-01-19] MEDS: OXYBUTYNIN CHLORIDE 5 MG TAB PO SCH ×2 (08:52→21:29)
[2018-01-19] MEDS: FINASTERIDE 5 MG TAB PO SCH (08:54)
[2018-01-19] MEDS: DOCUSATE SODIUM 50 MG/SENNA 8.6 MG TAB PO SCH ×2 (08:54→21:00)
[2018-01-19] MEDS: SODIUM CHLORIDE 0.9% FLUSH 10 ML FLUSH IV FLUSH SCH ×2 (08:54→21:30)
[2018-01-19] MEDS: FLUTICASONE 200 MCG/VILANTEROL 25 MCG INHALER INH SCH (08:55)
--- NOTE | 2018-01-19 09:48 | RADRPT ---
EXAM DATE: 01/19/2018 9:18 AM EDT AGE/SEX: 73 years / Male INDICATIONS: Chest pain. CLINICAL DATA: This is the patient's subsequent encounter. Patient reports that signs and symptoms h ave been present for 3 days and indicates a pain score of 4/10. MEDICAL/SURGICAL HISTORY: . Hypertension. Chronic obstructive pulmonary disease. Renal cancer. . Partial nephrectomy. COMPARISON: [facility] – [place], CHEST PA & LAT, 10/21/2017. . FINDINGS: There is again a dense infiltrate in the left lung base a combination of consolidation and pleural ef fusion. There is a left-sided pneumothorax. Right lung is relatively clear. Bones are unremarkable ex cept for compression deformity lower thoracic spine Cardiac and mediastinal silhouettes are unremarkable. CONCLUSION: Consolidation pleural effusion left lung base. Large left-sided pneumothorax Electronically signed by: Darius Bobo MD 01/19/2018 9:47 AM EDT
--- NOTE | 2018-01-19 10:29 | HHI.PR ---
Subjective Remarks No complaints, Denies Cp, SOB Sat's maintained room air Objective Vital Signs Date Time Temp Pulse Resp B/P (MAP) Pulse Ox O2 Delivery O2 Flow Rate FiO2 01/19/18 10:20 92 01/19/18 08:00 98.1 92 13 208/90 (129) 92 01/19/18 04:00 97.6 75 16 175/81 (112) 94 01/19/18 03:40 72 01/19/18 00:00 Room Air 01/19/18 00:00 97.5 78 18 187/88 (121) 93 01/18/18 23:35 71 01/18/18 20:00 Room Air 01/18/18 20:00 97.9 70 18 181/77 (111) 94 01/18/18 19:46 81 01/18/18 17:18 93 21 01/18/18 16:00 77 01/18/18 16:00 97.7 75 22 158/75 (102) 95 01/18/18 12:00 97.8 72 21 179/81 (113) 93 01/18/18 12:00 71 I/O 01/18/18 01/18/18 01/18/18 01/19/18 01/19/18 01/19/18 07:00 15:00 23:00 07:00 15:00 23:00 Intake Total 120 ml 360 ml 1000 ml Output Total 650 ml 600 ml 1050 ml Balance -530 ml -240 ml -50 ml Intake Oral 120 ml 360 ml IV Total 1000 ml Output Urine Total 650 ml 600 ml 1050 ml # Bowel Movements 0 Result Diagram: 01/19/18 0645 01/19/18 0645 Imaging Last 72 hours Impressions Chest X-Ray 01/19/18 0000 Signed Impressions: CONCLUSION: Consolidation pleural effusion left lung base. Large left-sided pneumothorax Chest CT 01/19/18 0000 Signed Impressions: CONCLUSION: 1. New small to moderate left-sided pneumothorax. 2. New nonspecific parenchymal consolidation in the posterior left upper lung. 3. New compressive atelectasis in the left lower lung with a left-sided pleura l effusion. 4. Right lower lung posterior atelectasis. Thoracentesis Ultrasound 01/18/18 0600 Signed Impressions: CONCLUSION: 1. Uncomplicated left thoracentesis with removal of 450 cc of fluid. 2. Air was removed during the thoracentesis as well indicating that a pneumoth orax was present. Postprocedure chest x-ray demonstrates general lucency in the left lung without a clear pleural line visualized. Suggest obtaining a chest C T for further evaluation to determine the size of the suspected pneumothorax. 3. Findings were telephoned to Dr. Girno. Chest X-Ray 01/18/18 0000 Signed Impressions: CONCLUSION: 1. Persistent left basilar consolidation and effusion. The effusion appears to be somewhat smaller when compared to the prior. There is no pneumothorax. 2. Stable levo positioning of the heart and mediastinal structures. Chest X-Ray 01/16/18 1334 Signed Impressions: CONCLUSION: Consolidation and small to moderate pleural effusion at the left lung base. Procedures 01/18/18- Thoracentesis Left 450cc removed Objective Remarks GENERAL:Well-developed patient, in no apparent distress. SKIN: . Warm and dry. EYES: Pupils equal round and reactive. Extraocular motions intact. No scleral icterus. No injection or drainage. HEENT: Unremarkable NECK: Trachea midline. No JVD CARDIOVASCULAR: Regular rate and rhythm without murmurs, gallops, or rubs. RESPIRATORY: Coarse, throughout GASTROINTESTINAL: Abdomen soft, non-tender, nondistended. MUSCULOSKELETAL: Extremities without clubbing, cyanosis, or edema. Negative Homans sign bilaterally. NEUROLOGICAL: Awake and alert. Normal speech. Medications and IVs Current Medications Medications (Trade) Dose Ordered Sig/Nayeli Route Start Time Stop Time Status Last Admin Sodium Chloride 1,000 ml @ 100 mls/hr Q10H IV 01/16/18 16:00 01/19/18 01:04 (NS Flush) 2 ml UNSCH PRN IV FLUSH 01/16/18 15:00 (NS Flush) 2 ml BID IV FLUSH 01/16/18 21:00 01/19/18 08:54 (Tylenol) 650 mg Q4H PRN PO 01/16/18 15:00 01/16/18 20:57 (Ambien) 5 mg HS PRN PO 01/16/18 15:00 01/16/18 22:20 (Lovenox Inj) 40 mg Q24H SQ 01/16/18 16:00 01/18/18 15:23 (Narcan Inj) 0.4 mg UNSCH PRN IV PUSH 01/16/18 15:00 (Elvie-Colace) 1 tab BID PO 01/16/18 21:00 01/17/18 19:46 (Milk Of Magnesia Liq) 30 ml Q12H PRN PO 01/16/18 15:00 (Senokot) 17.2 mg Q12H PRN PO 01/16/18 15:00 (Dulcolax Supp) 10 mg DAILY PRN RECTAL 01/16/18 15:00 (Lactulose Liq) 30 ml DAILY PRN PO 01/16/18 15:00 Azithromycin 500 mg/Sodium Chloride 250 ml @ 250 mls/hr Q24H IV 01/17/18 14:00 01/18/18 13:40 Ceftriaxone Sodium 2000 mg/ Sodium Chloride 100 ml @ 200 mls/hr Q24H IV 01/17/18 14:00 01/18/18 13:41 (Vitamin B12) 5,000 mcg DAILY PO 01/17/18 09:00 01/19/18 08:51 (Cardizem) 30 mg TID PO 01/16/18 18:00 01/19/18 08:52 (Proscar) 5 mg DAILY PO 01/17/18 09:00 01/19/18 08:54 (Breo Ellipta 200-25 Inh) 1 puff DAILY INH 01/17/18 09:00 01/19/18 08:55 (Ditropan) 5 mg Q12HR PO 01/16/18 21:00 01/19/18 08:52 (Flomax) 0.4 mg HS PO 01/16/18 21:00 01/18/18 20:24 Patient Own Medication PT OWN MED: (Methylcellulose Pow... DAILY PO 01/17/18 09:00 Future Hold (Desyrel) 200 mg HS PO 01/16/18 21:00 01/18/18 20:24 (Cardura) 12 mg DAILY PO 01/18/18 09:00 01/19/18 08:52 ([place] 5-325 Mg) 1 tab Q4H PRN PO 01/17/18 14:45 01/18/18 19:40 ([place] 5-325 Mg) 2 tab Q4H PRN PO 01/17/18 14:45 01/19/18 08:53 (Prinivil) 5 mg DAILY PO 01/18/18 10:15 01/19/18 08:52 Assessment and Plan Problem List: (1) Pleural effusion on left ICD Codes: J90 - Pleural effusion, not elsewhere classified (2) Left lower lobe pneumonia ICD Codes: J18.1 - Lobar pneumonia, unspecified organism Status: Acute (3) COPD (chronic obstructive pulmonary disease) ICD Codes: J44.9 - Chronic obstructive pulmonary disease, unspecified Status: Acute (4) Hypertension ICD Codes: I10 - Essential (primary) hypertension Status: Chronic Assessment and Plan 01/19/18- Thoracentesis yesterday with 450 cc taken off. Denies SOB, B/P elevated running systolic 180's. Lisinopril increased to 40 mg daily PRN clonidine added for systolic greater than 160 or diastolic greater than 90 Problem Qualifiers (1) Left lower lobe pneumonia: Qualified Codes: J18.1 - Lobar pneumonia, unspecified organism (2) COPD (chronic obstructive pulmonary disease): Qualified Codes: J44.1 - Chronic obstructive pulmonary disease with (acute) exacerbation Sulma Macias Jan 19, 2018 10:29
[2018-01-19] MEDS: LISINOPRIL 20 MG TAB PO SCH ×2 (12:03→21:30)
[2018-01-19] MEDS ORDERED: MIDAZOLAM HCL 2 MG/2 ML VIAL ONE (13:35)
--- NOTE | 2018-01-19 14:17 | PD.RAD ---
Post Procedure Progress Note Pre Procedure Diagnosis: (1) Pneumothorax, left Post Procedure Diagnosis: (1) Pneumothorax, left Procedure Date: Jan 19, 2018 Supervising Radiologist: Jose Roberto Benitez JR Proceduralist/Assist: Jan Marie RT(R), Yolanda Jaquez RT(R)(CV) Anesthesia: Conscious Sedation Plan of Activity Patient to Unit: ROPU Patient Condition: Good See PACS Report for procedural detail/treatment Drainage Procedure Procedure 1 Imaging Guidance: Fluoroscopy Side: Left Procedure Type: Chest Tube Non-Tunneled Procedure: Placement Georgian: 8 Drainage: Pleurovac Findings: Enlarging L PTX responded well to L chest tube placement. Jr. Emmanuel,Jose Roberto Mclaughlin MD Jan 19, 2018 14:17
--- NOTE | 2018-01-19 15:03 | RADRPT ---
EXAM DATE: 01/19/2018 2:50 PM EDT AGE/SEX: 73 years / Male INDICATIONS: Post chest tube placement left side CLINICAL DATA: This is the patient's initial encounter. Patient reports that signs and symptoms have been present for 1 day and indicates a pain score of 7/10. MEDICAL/SURGICAL HISTORY: Chronic obstructive pulmonary disease. Renal cell carcinoma. Renal calculi. . nephrectomy thoracentesis left side COMPARISON: [facility] – [place], CHEST EXPIRATION ONLY, 01/18/2018. [facility] – [place], CT THORAX W/O CONTRAST, 01/19/2018. . FINDINGS: Portable AP view of the chest demonstrates a normal-sized cardiac silhouette with leftward shift of t he mediastinum. There is calcification of the aorta. Left chest tube has been placed in the apex of t he left hemithorax. The left pneumothorax has resolved. Small left pleural effusion remains along wit h volume loss and opacity at the left lung base. Right lung demonstrates no abnormality. CONCLUSION: 1. Resolution of the pneumothorax following left chest tube placement. 2. There is persistent volume loss/collapse of the left lower lobe with small left pleural effusion. Based on prior chest CT there appears to be material in the left lower lobe bronchus which could rep resent a mass or mucous plug. Consider correlation with bronchoscopy. Electronically signed by: George Correia MD 01/19/2018 3:02 PM EDT
[2018-01-19] MEDS: cefTRIAXone INJ 2,000 MG in SODIUM CHLORIDE 0.9% INJ 100 ML IV SCH (16:07)
[2018-01-19] MEDS: AZITHROMYCIN INJ 500 MG in SODIUM CHLOR 0.9% 250 ML INJ 250 ML IV SCH (16:51)
--- NOTE | 2018-01-19 17:05 | RADRPT ---
EXAM DATE: 01/19/2018 3:53 PM EDT AGE/SEX: 73 years / Male INDICATIONS: Patient presents with left pneumothorax in in need of left chest tube placement. CLINICAL DATA: This is the patient's initial encounter. Patient reports that signs and symptoms have been present for 1 day and indicates a pain score of 2/10. MEDICAL/SURGICAL HISTORY: . COPD due to smoking which he just quit 2 months ago. HTN BPH withou t obstruction. . Left inguinal hernia repair COMPARISON: . FLUORO TIME (min): 0.7 IMAGE SERIES: 2 ACCESS SITE: SEDATION TIME (min): 10 MEDICATION(S): 2 MG midazolam (Versed) IV 100 MCG fentanyl (Sublimaze) IV DEVICE(S): 10 Indonesian non-locking catheter . . PROCEDURE: 1. Fluoroscopically guided chest tube placement. 2. Conscious sedation with continuous EKG and oximetry monitoring. The risks, benefits and alternatives to the procedure were explained and verbal and written consent w as obtained. The site was prepped in sterile fashion. Full sterile technique was used, including ca p, mask, sterile gloves and gown and a large sterile sheet. Hand hygiene and 2% chlorhexidine and/or betadine/alcohol prep was utilized per protocol for cutaneous antisepsis. The skin and subcutaneous tissues were infiltrated with local anesthetic solution. With fluoroscopic guidance the left chest was punctured between the first and second interspace and t he prescribed catheter was placed in the lung apex. Wall suction was applied. Post procedure images demonstrate satisfactory position of the tube. The catheter was sutured in place and a Percu-Stay wa s applied. Conscious sedation was performed with the prescribed dosages and duration as above in the presence of an independent trained radiology nurse to assist in the monitoring of the patient. EKG and oximetry remained stable throughout the procedure. The patient tolerated the procedure well and there were n o complications. The patient was sent to post anesthesia recovery in stable condition. CONCLUSION: 1. Uncomplicated left chest tube placement as above. Electronically signed by: Jose Roberto Benitez MD 01/19/2018 5:03 PM EDT
[2018-01-19] MEDS: ENOXAPARIN SODIUM 40 MG/0.4 ML SYRINGE SQ SCH (17:39)
[2018-01-19 18:29] LABS: BILIRUBIN, URINE NEG (NEG); BLOOD, URINE NEG (NEG); GLUCOSE,URINE NEG (NEG); KETONE, URINE NEG (NEG); MUCUS URINE FEW /lpf (OCC); NITRITE,URINE NEG (NEG); SQUAMOUS EPITHELIAL CELL URINE 1 /hpf (0-5); URINE COLOR YELLOW (YELLW/STRAW); URINE LEUKOCYTE ESTERASE TRACE (NEG)
--- NOTE | 2018-01-19 19:02 | HHI.PR ---
Subjective Remarks 73 YOWM with COPD,Pn Pl eff Breathing better CP improved Denies sob no Fever pl fluid transudate, culture and cytology Neg Had Left chest tube due to PTX Objective Vital Signs Vital Signs Date Time Temp Pulse Resp B/P (MAP) Pulse Ox O2 Delivery O2 Flow Rate FiO2 01/19/18 17:27 98 21 01/19/18 16:00 98.0 77 13 140/66 (90) 93 01/19/18 16:00 98.0 77 13 140/66 (90) 93 01/19/18 16:00 82 01/19/18 15:10 58 16 149/61 (90) 98 01/19/18 14:40 59 16 158/54 (88) 98 01/19/18 14:25 97.9 59 16 170/81 (110) 98 01/19/18 12:00 98.0 108 12 167/77 (107) 89 01/19/18 11:59 69 01/19/18 10:20 92 01/19/18 09:30 Nasal Cannula 2.00 01/19/18 08:01 69 01/19/18 08:00 98.1 92 13 208/90 (129) 92 01/19/18 08:00 Room Air 2.00 Nasal Cannula 01/19/18 04:00 97.6 75 16 175/81 (112) 94 01/19/18 03:40 72 01/19/18 00:00 Room Air 01/19/18 00:00 97.5 78 18 187/88 (121) 93 01/18/18 23:35 71 01/18/18 20:00 Room Air 01/18/18 20:00 97.9 70 18 181/77 (111) 94 01/18/18 19:46 81 I/O 01/18/18 01/18/18 01/18/18 01/19/18 01/19/18 01/19/18 07:00 15:00 23:00 07:00 15:00 23:00 Intake Total 120 ml 360 ml 1000 ml 580 ml Output Total 650 ml 600 ml 1050 ml 710 ml Balance -530 ml -240 ml -50 ml -130 ml Intake Oral 120 ml 360 ml 480 ml IV Total 1000 ml 100 ml Output Urine Total 650 ml 600 ml 1050 ml 710 ml # Bowel Movements 0 Result Diagram: 01/19/18 0645 01/19/1845 Objective Remarks GENERAL: Elderly male, NAD SKIN: Warm and dry. HEAD: Normocephalic. EYES: No scleral icterus. No injection or drainage. NECK: Supple, trachea midline. No JVD or lymphadenopathy. CARDIOVASCULAR: Regular rate and rhythm without murmurs, gallops, or rubs. RESPIRATORY: Breath sounds equal bilaterally. No accessory muscle use. Decreased BS left base GASTROINTESTINAL: Abdomen soft, non-tender, nondistended. MUSCULOSKELETAL: No cyanosis, or edema. BACK: Nontender without obvious deformity. No CVA tenderness. A/P Assessment and Plan IMPRESSION: 1. Left lung pneumonia. 2. Pleural effusion, possible parapneumonic pleural effusion. 3. Chronic obstructive pulmonary disease. 4. Nicotine use. 5. Alcohol use. 6. Hypertension. 7. Left PTX, s/p Chest tube PLAN: Chest tube to Suction Cont Abx Aerosol nebs Supplement 02 Jose Giron MD Jan 19, 2018 19:02
[2018-01-19] MEDS: traZODone HCL 100 MG TAB PO SCH (21:29)
[2018-01-19] MEDS: TAMSULOSIN HCL 0.4 MG CAP PO SCH (21:29)
[2018-01-20] VITALS (10 sets, daily range): BP systolic 141–184; BP diastolic 73–87; PULSE 54–100; RESP 16–18; TEMP 97.6–98.3; O2SAT 92–96
[2018-01-20] MEDS: SODIUM CHLOR 0.9% 1000 ML INJ 1,000 ML IV SCH ×3 (01:16→22:16)
[2018-01-20] MEDS: ACETAMINOPHEN/HYDROcodone 325 MG/5 MG TAB PO PRN ×5 (04:50→22:11)
--- NOTE | 2018-01-20 07:14 | HHI.PR ---
Subjective Remarks No complaints, Denies Cp, SOB Left chest tube in place. Objective Vital Signs Date Time Temp Pulse Resp B/P (MAP) Pulse Ox O2 Delivery O2 Flow Rate FiO2 01/20/18 04:00 55 01/20/18 04:00 98.0 62 16 148/77 (100) 93 01/20/18 00:00 98.0 70 16 148/87 (107) 94 01/20/18 00:00 54 01/19/18 20:00 98.1 66 18 140/65 (90) 94 01/19/18 20:00 76 01/19/18 20:00 Nasal Cannula 2.00 01/19/18 17:27 98 21 01/19/18 16:00 98.0 77 13 140/66 (90) 93 01/19/18 16:00 98.0 77 13 140/66 (90) 93 01/19/18 16:00 82 01/19/18 15:10 58 16 149/61 (90) 98 01/19/18 14:40 59 16 158/54 (88) 98 01/19/18 14:25 97.9 59 16 170/81 (110) 98 01/19/18 12:00 98.0 108 12 167/77 (107) 89 01/19/18 11:59 69 01/19/18 10:20 92 01/19/18 09:30 Nasal Cannula 2.00 01/19/18 08:01 69 01/19/18 08:00 98.1 92 13 208/90 (129) 92 01/19/18 08:00 Room Air 2.00 Nasal Cannula I/O 01/19/18 01/19/18 01/19/18 01/20/18 01/20/18 01/20/18 07:00 15:00 23:00 07:00 15:00 23:00 Intake Total 1000 ml 830 ml Output Total 1050 ml 710 ml 700 ml Balance -50 ml 120 ml -700 ml Intake Oral 480 ml IV Total 1000 ml 350 ml Output Urine Total 1050 ml 710 ml 700 ml # Voids 1 Result Diagram: 01/19/18 0645 01/19/18 0645 Imaging Last 72 hours Impressions Chest X-Ray 01/19/18 0000 Signed Impressions: CONCLUSION: 1. Resolution of the pneumothorax following left chest tube placement. 2. There is persistent volume loss/collapse of the left lower lobe with small left pleural effusion. Based on prior chest CT there appears to be material in the left lower lobe bronchus which could represent a mass or mucous plug. Consi reinaldo correlation with bronchoscopy. Chest X-Ray 01/19/18 Signed Impressions: CONCLUSION: Consolidation pleural effusion left lung base. Large left-sided pneumothorax Chest Tube Insertion 01/19/18 Signed Impressions: CONCLUSION: 1. Uncomplicated left chest tube placement as above. Chest CT 01/19/18 Signed Impressions: CONCLUSION: 1. New small to moderate left-sided pneumothorax. 2. New nonspecific parenchymal consolidation in the posterior left upper lung. 3. New compressive atelectasis in the left lower lung with a left-sided pleura l effusion. 4. Right lower lung posterior atelectasis. Thoracentesis Ultrasound 01/18/18 0600 Signed Impressions: CONCLUSION: 1. Uncomplicated left thoracentesis with removal of 450 cc of fluid. 2. Air was removed during the thoracentesis as well indicating that a pneumoth orax was present. Postprocedure chest x-ray demonstrates general lucency in the left lung without a clear pleural line visualized. Suggest obtaining a chest C T for further evaluation to determine the size of the suspected pneumothorax. 3. Findings were telephoned to Dr. Giron. Chest X-Ray 01/18/18 Signed Impressions: CONCLUSION: 1. Persistent left basilar consolidation and effusion. The effusion appears to be somewhat smaller when compared to the prior. There is no pneumothorax. 2. Stable levo positioning of the heart and mediastinal structures. Procedures 01/18/18- Thoracentesis Left 450cc removed Objective Remarks GENERAL:Well-developed patient, in no apparent distress. SKIN: . Warm and dry, dressing to left chest d/i EYES: Pupils equal round and reactive. Extraocular motions intact. No scleral icterus. No injection or drainage. HEENT: Unremarkable NECK: Trachea midline. No JVD CARDIOVASCULAR: Regular rate and rhythm without murmurs, gallops, or rubs. RESPIRATORY: BS equal, diminished at base, scattered exp wheezes GASTROINTESTINAL: Abdomen soft, non-tender, nondistended. MUSCULOSKELETAL: Extremities without clubbing, cyanosis, or edema. Negative Homans sign bilaterally. NEUROLOGICAL: Awake and alert. Normal speech. Medications and IVs Current Medications Medications (Trade) Dose Ordered Sig/Nayeli Route Start Time Stop Time Status Last Admin Sodium Chloride 1,000 ml @ 100 mls/hr Q10H IV 01/16/18 16:00 01/20/18 01:16 (NS Flush) 2 ml UNSCH PRN IV FLUSH 01/16/18 15:00 (NS Flush) 2 ml BID IV FLUSH 01/16/18 21:00 01/19/18 21:30 (Tylenol) 650 mg Q4H PRN PO 01/16/18 15:00 01/16/18 20:57 (Ambien) 5 mg HS PRN PO 01/16/18 15:00 01/16/18 22:20 (Lovenox Inj) 40 mg Q24H SQ 01/16/18 16:00 01/19/18 17:39 (Narcan Inj) 0.4 mg UNSCH PRN IV PUSH 01/16/18 15:00 (Elvie-Colace) 1 tab BID PO 01/16/18 21:00 01/17/18 19:46 (Milk Of Magnesia Liq) 30 ml Q12H PRN PO 01/16/18 15:00 (Senokot) 17.2 mg Q12H PRN PO 01/16/18 15:00 (Dulcolax Supp) 10 mg DAILY PRN RECTAL 01/16/18 15:00 (Lactulose Liq) 30 ml DAILY PRN PO 01/16/18 15:00 Azithromycin 500 mg/Sodium Chloride 250 ml @ 250 mls/hr Q24H IV 01/17/18 14:00 01/19/18 16:51 Ceftriaxone Sodium 2000 mg/ Sodium Chloride 100 ml @ 200 mls/hr Q24H IV 01/17/18 14:00 01/19/18 16:07 (Vitamin B12) 5,000 mcg DAILY PO 01/17/18 09:00 01/19/18 08:51 (Cardizem) 30 mg TID PO 01/16/18 18:00 01/19/18 17:38 (Proscar) 5 mg DAILY PO 01/17/18 09:00 01/19/18 08:54 (Breo Ellipta 200-25 Inh) 1 puff DAILY INH 01/17/18 09:00 01/19/18 08:55 (Ditropan) 5 mg Q12HR PO 01/16/18 21:00 01/19/18 21:29 (Flomax) 0.4 mg HS PO 01/16/18 21:00 01/19/18 21:29 Patient Own Medication PT OWN MED: (Methylcellulose Pow... DAILY PO 01/17/18 09:00 Future Hold (Desyrel) 200 mg HS PO 01/16/18 21:00 01/19/18 21:29 (Cardura) 12 mg DAILY PO 01/18/18 09:00 01/19/18 08:52 ([place] 5-325 Mg) 1 tab Q4H PRN PO 01/17/18 14:45 01/18/18 19:40 ([place] 5-325 Mg) 2 tab Q4H PRN PO 01/17/18 14:45 01/20/18 04:50 (Prinivil) 20 mg Q12HR PO 01/19/18 11:15 01/19/18 21:30 (Catapres) 0.1 mg Q6H PRN PO 01/19/18 11:15 Assessment and Plan Problem List: (1) Pleural effusion on left ICD Codes: J90 - Pleural effusion, not elsewhere classified (2) Left lower lobe pneumonia ICD Codes: J18.1 - Lobar pneumonia, unspecified organism Status: Acute (3) COPD (chronic obstructive pulmonary disease) ICD Codes: J44.9 - Chronic obstructive pulmonary disease, unspecified Status: Acute (4) Hypertension ICD Codes: I10 - Essential (primary) hypertension Status: Chronic Assessment and Plan 01/19/18- Thoracentesis yesterday with 450 cc taken off. Denies SOB, B/P elevated running systolic 180's. Lisinopril increased to 40 mg daily PRN clonidine added for systolic greater than 160 or diastolic greater than 90 01/20/18- No complaints thia am, Chest tube placed yesterday for L pneumothorax. Report mild discomfort. Pulmonary following. BP better this am. Problem Qualifiers (1) Left lower lobe pneumonia: Qualified Codes: J18.1 - Lobar pneumonia, unspecified organism (2) COPD (chronic obstructive pulmonary disease): Qualified Codes: J44.1 - Chronic obstructive pulmonary disease with (acute) exacerbation Sulma Macias Jan 20, 2018 07:13
--- NOTE | 2018-01-20 07:56 | RADRPT ---
EXAM DATE: 01/20/2018 7:34 AM EDT AGE/SEX: 73 years / Male INDICATIONS: Short of breath. CLINICAL DATA: This is the patient's subsequent encounter. Patient reports that signs and symptoms h ave been present for 1 week and indicates a pain score of Nonresponsive. MEDICAL/SURGICAL HISTORY: Chronic obstructive pulmonary disease. Hypertension. None. COMPARISON: [facility] – [place], CHEST EXPIRATION ONLY, 01/19/2018. . FINDINGS: Persistent basilar consolidation, left side predominant. Small-caliber left chest tube remains in suraj ce. I don't see a pneumothorax. A small left pleural effusion is likely, unchanged. No pleural effusi on or pneumothorax seen on the right. Heart size stable, upper limits of normal. CONCLUSION: 1. No significant change left greater than right basilar consolidation and left pleural effusion. 2. Left chest tube remains in place. No perceptible pneumothorax. Electronically signed by: George Vaughn MD 01/20/2018 7:55 AM EDT
[2018-01-20] MEDS: CYANOCOBALAMIN 1,000 MCG TAB PO SCH (08:31)
[2018-01-20] MEDS: LISINOPRIL 20 MG TAB PO SCH ×2 (08:31→22:14)
[2018-01-20] MEDS: OXYBUTYNIN CHLORIDE 5 MG TAB PO SCH ×2 (08:32→22:12)
[2018-01-20] MEDS: DILTIAZEM HCL 30 MG TAB PO SCH ×3 (08:32→17:38)
[2018-01-20] MEDS: FINASTERIDE 5 MG TAB PO SCH (08:32)
[2018-01-20] MEDS: DOCUSATE SODIUM 50 MG/SENNA 8.6 MG TAB PO SCH ×2 (08:33→22:13)
[2018-01-20] MEDS: DOXAZOSIN MESYLATE 4 MG TAB PO SCH (08:33)
[2018-01-20] MEDS: SODIUM CHLORIDE 0.9% FLUSH 10 ML FLUSH IV FLUSH SCH ×2 (08:33→22:16)
[2018-01-20] MEDS: FLUTICASONE 200 MCG/VILANTEROL 25 MCG INHALER INH SCH (08:34)
[2018-01-20] MEDS: cloNIDine HCL 0.1 MG TAB PO PRN (12:54)
[2018-01-20] MEDS: AZITHROMYCIN INJ 500 MG in SODIUM CHLOR 0.9% 250 ML INJ 250 ML IV SCH (14:08)
[2018-01-20] MEDS: cefTRIAXone INJ 2,000 MG in SODIUM CHLORIDE 0.9% INJ 100 ML IV SCH (14:53)
[2018-01-20] MEDS ORDERED: NYSTATIN 100,000 U/GM PWD 15 GM BTL TOPICAL PRN (16:30)
[2018-01-20] MEDS: ENOXAPARIN SODIUM 40 MG/0.4 ML SYRINGE SQ SCH (17:39)
[2018-01-20] MEDS: ACYCLOVIR 800 MG TAB PO SCH ×2 (18:08→22:11)
--- NOTE | 2018-01-20 18:24 | HHI.PR ---
Subjective Remarks 73 YOWM with COPD,Pn Pl eff Breathing better CP improved Denies sob no Fever pl fluid transudate, culture and cytology Neg Chest tube draining CXR no ptx Objective Vital Signs Vital Signs Date Time Temp Pulse Resp B/P (MAP) Pulse Ox O2 Delivery O2 Flow Rate FiO2 01/20/18 17:29 96 Nasal Cannula 2.00 01/20/18 14:14 96 Nasal Cannula 2.00 01/20/18 12:07 98.3 62 17 165/73 (103) 94 01/20/18 08:07 97.6 61 17 184/86 (118) 92 01/20/18 08:00 Nasal Cannula 2.00 21 01/20/18 08:00 79 01/20/18 04:00 55 01/20/18 04:00 98.0 62 16 148/77 (100) 93 01/20/18 00:00 98.0 70 16 148/87 (107) 94 01/20/18 00:00 54 01/19/18 20:00 98.1 66 18 140/65 (90) 94 01/19/18 20:00 76 01/19/18 20:00 Nasal Cannula 2.00 I/O 01/19/18 01/19/18 01/19/18 01/20/18 01/20/18 01/20/18 07:00 15:00 23:00 07:00 15:00 23:00 Intake Total 1000 ml 830 ml Output Total 1050 ml 710 ml 700 ml Balance -50 ml 120 ml -700 ml Intake Oral 480 ml IV Total 1000 ml 350 ml Output Urine Total 1050 ml 710 ml 700 ml # Voids 1 Result Diagram: 01/19/18 0645 01/19/18 0645 Objective Remarks GENERAL: Elderly male, NAD SKIN: Warm and dry. HEAD: Normocephalic. EYES: No scleral icterus. No injection or drainage. NECK: Supple, trachea midline. No JVD or lymphadenopathy. CARDIOVASCULAR: Regular rate and rhythm without murmurs, gallops, or rubs. RESPIRATORY: Breath sounds equal bilaterally. No accessory muscle use. Decreased BS left base GASTROINTESTINAL: Abdomen soft, non-tender, nondistended. MUSCULOSKELETAL: No cyanosis, or edema. BACK: Nontender without obvious deformity. No CVA tenderness. A/P Assessment and Plan IMPRESSION: 1. Left lung pneumonia. 2. Pleural effusion, possible parapneumonic pleural effusion. 3. Chronic obstructive pulmonary disease. 4. Nicotine use. 5. Alcohol use. 6. Hypertension. 7. Left PTX, s/p Chest tube PLAN: Chest tube to Suction Cont Abx Aerosol nebs Supplement 02 Chest tube management per radiology. Jose Giron MD Jan 20, 2018 18:24
[2018-01-20] MEDS: TAMSULOSIN HCL 0.4 MG CAP PO SCH (22:12)
[2018-01-20] MEDS: traZODone HCL 100 MG TAB PO SCH (22:12)
[2018-01-21] VITALS (12 sets, daily range): BP systolic 171–188; BP diastolic 77–87; PULSE 50–101; RESP 17–18; TEMP 97.9–98.5; O2SAT 92–95
[2018-01-21] MEDS: cloNIDine HCL 0.1 MG TAB PO PRN ×2 (00:41→21:22)
[2018-01-21] MEDS ORDERED: ENALAPRIL MALEATE 2.5 MG TAB PO ONE (05:30)
[2018-01-21] MEDS: ACETAMINOPHEN/HYDROcodone 325 MG/5 MG TAB PO PRN ×5 (05:48→23:54)
[2018-01-21] MEDS: ACYCLOVIR 800 MG TAB PO SCH ×5 (05:48→21:22)
[2018-01-21] MEDS: SODIUM CHLOR 0.9% 1000 ML INJ 1,000 ML IV SCH ×2 (05:50→15:10)
[2018-01-21] MEDS ORDERED: DILTIAZEM HCL 30 MG TAB PO SCH (06:00)
[2018-01-21 06:27] LABS: AUTOMATED NEUTROPHIL # 4.6 TH/MM3 (1.8-7.7); BASOPHIL # 0.1 TH/MM3 (0-0.2); BASOPHIL % 0.7 % (0.0-2.0); EOSINOPHIL # 0.6 TH/MM3 (0-0.4); HEMATOCRIT 33.3 % (39.0-51.0); HEMOGLOBIN 11.4 GM/DL (13.0-17.0); LYMPH % 23.3 % (9.0-44.0); LYMPHOCYTE # 1.8 TH/MM3 (1.0-4.8); MEAN CELL VOLUME 94.7 FL (80.0-100.0); MEAN CORPUSCULAR HEMOGLOBIN 32.5 PG (27.0-34.0); MEAN CORPUSCULAR HGB CONC 34.3 % (32.0-36.0); MONOCYTE # 0.6 TH/MM3 (0-0.9); PLATELET COUNT 260 TH/MM3 (150-450); RED BLOOD COUNT 3.51 MIL/MM3 (4.50-5.90); RED CELL DISTRIBUTION WIDTH 14.2 % (11.6-17.2); WHITE BLOOD COUNT 7.7 TH/MM3 (4.0-11.0)
[2018-01-21 07:00] LABS: BICARBONATE 20.7 MEQ/L (21.0-32.0); CALCIUM 8.4 MG/DL (8.5-10.1); CREATININE 1.24 MG/DL (0.60-1.30)
[2018-01-21] MEDS: OXYBUTYNIN CHLORIDE 5 MG TAB PO SCH ×2 (08:15→21:22)
[2018-01-21] MEDS: LISINOPRIL 20 MG TAB PO SCH ×2 (08:15→21:22)
[2018-01-21] MEDS: CYANOCOBALAMIN 1,000 MCG TAB PO SCH (08:15)
[2018-01-21] MEDS: DOXAZOSIN MESYLATE 4 MG TAB PO SCH (08:16)
[2018-01-21] MEDS: DILTIAZEM HCL 30 MG TAB PO SCH ×3 (08:16→23:54)
[2018-01-21] MEDS: FINASTERIDE 5 MG TAB PO SCH (08:16)
[2018-01-21] MEDS: DOCUSATE SODIUM 50 MG/SENNA 8.6 MG TAB PO SCH ×2 (08:16→21:00)
[2018-01-21] MEDS: SODIUM CHLORIDE 0.9% FLUSH 10 ML FLUSH IV FLUSH SCH ×2 (08:18→21:00)
[2018-01-21] MEDS: FLUTICASONE 200 MCG/VILANTEROL 25 MCG INHALER INH SCH (08:18)
--- NOTE | 2018-01-21 10:53 | HHI.PR ---
Subjective Remarks Denies Cp, SOB Left chest tube in place to sx Objective Vital Signs Date Time Temp Pulse Resp B/P (MAP) Pulse Ox O2 Delivery O2 Flow Rate FiO2 01/21/18 08:07 98.2 59 18 179/84 (115) 94 01/21/18 04:00 63 01/21/18 04:00 97.9 60 17 180/79 (112) 92 01/21/18 00:00 98.0 57 17 188/87 (120) 95 01/21/18 00:00 50 01/20/18 20:00 66 01/20/18 20:00 Nasal Cannula 2.00 01/20/18 20:00 98.1 75 18 162/74 (103) 92 01/20/18 17:29 96 Nasal Cannula 2.00 01/20/18 16:00 98.1 100 17 141/73 (95) 93 01/20/18 16:00 61 01/20/18 14:14 96 Nasal Cannula 2.00 01/20/18 12:07 98.3 62 17 165/73 (103) 94 01/20/18 12:00 60 I/O 01/20/18 01/20/18 01/20/18 01/21/18 01/21/18 01/21/18 07:00 15:00 23:00 07:00 15:00 23:00 Intake Total 360 ml 3253 ml 1000 ml Output Total 890 ml 250 ml 1780 ml Balance -890 ml 360 ml 3003 ml -780 ml Intake Oral 360 ml 2903 ml 0 ml IV Total 350 ml 1000 ml Output Urine Total 700 ml 200 ml 1500 ml Chest Tube Drainage Total 190 ml 50 ml 280 ml # Voids 1 # Bowel Movements 0 0 Result Diagram: 01/21/18 0536 01/21/18 0536 Imaging Last 72 hours Impressions Chest X-Ray 01/20/18 0000 Signed Impressions: CONCLUSION: 1. No significant change left greater than right basilar consolidation and lef t pleural effusion. 2. Left chest tube remains in place. No perceptible pneumothorax. Chest X-Ray 01/19/18 0000 Signed Impressions: CONCLUSION: 1. Resolution of the pneumothorax following left chest tube placement. 2. There is persistent volume loss/collapse of the left lower lobe with small left pleural effusion. Based on prior chest CT there appears to be material in the left lower lobe bronchus which could represent a mass or mucous plug. Consi reinaldo correlation with bronchoscopy. Chest X-Ray 01/19/18 Signed Impressions: CONCLUSION: Consolidation pleural effusion left lung base. Large left-sided pneumothorax Chest Tube Insertion 01/19/18 Signed Impressions: CONCLUSION: 1. Uncomplicated left chest tube placement as above. Chest CT 01/19/18 Signed Impressions: CONCLUSION: 1. New small to moderate left-sided pneumothorax. 2. New nonspecific parenchymal consolidation in the posterior left upper lung. 3. New compressive atelectasis in the left lower lung with a left-sided pleura l effusion. 4. Right lower lung posterior atelectasis. Procedures 01/18/18- Thoracentesis Left 450cc removed 01/20/18- L Chest tube placed Objective Remarks GENERAL:Well-developed patient, in no apparent distress. SKIN: . Warm and dry, dressing to left chest d/i EYES: Pupils equal round and reactive. Extraocular motions intact. No scleral icterus. No injection or drainage. HEENT: Unremarkable NECK: Trachea midline. No JVD CARDIOVASCULAR: Regular rate and rhythm without murmurs, gallops, or rubs. RESPIRATORY: BS equal, diminished at base, scattered exp wheezes GASTROINTESTINAL: Abdomen soft, non-tender, nondistended. MUSCULOSKELETAL: Extremities without clubbing, cyanosis, or edema. Negative Homans sign bilaterally. NEUROLOGICAL: Awake and alert. Normal speech. Medications and IVs Current Medications Medications (Trade) Dose Ordered Sig/Nayeli Route Start Time Stop Time Status Last Admin Sodium Chloride 1,000 ml @ 100 mls/hr Q10H IV 01/16/18 16:00 01/21/18 05:50 (NS Flush) 2 ml UNSCH PRN IV FLUSH 01/16/18 15:00 (NS Flush) 2 ml BID IV FLUSH 01/16/18 21:00 01/21/18 08:18 (Tylenol) 650 mg Q4H PRN PO 01/16/18 15:00 01/16/18 20:57 (Ambien) 5 mg HS PRN PO 01/16/18 15:00 01/16/18 22:20 (Lovenox Inj) 40 mg Q24H SQ 01/16/18 16:00 01/20/18 17:39 (Narcan Inj) 0.4 mg UNSCH PRN IV PUSH 01/16/18 15:00 (Elvie-Colace) 1 tab BID PO 01/16/18 21:00 01/20/18 22:13 (Milk Of Magnesia Liq) 30 ml Q12H PRN PO 01/16/18 15:00 (Senokot) 17.2 mg Q12H PRN PO 01/16/18 15:00 (Dulcolax Supp) 10 mg DAILY PRN RECTAL 01/16/18 15:00 (Lactulose Liq) 30 ml DAILY PRN PO 01/16/18 15:00 Azithromycin 500 mg/Sodium Chloride 250 ml @ 250 mls/hr Q24H IV 01/17/18 14:00 01/20/18 14:08 Ceftriaxone Sodium 2000 mg/ Sodium Chloride 100 ml @ 200 mls/hr Q24H IV 01/17/18 14:00 01/20/18 14:53 (Vitamin B12) 5,000 mcg DAILY PO 01/17/18 09:00 01/21/18 08:15 (Proscar) 5 mg DAILY PO 01/17/18 09:00 01/21/18 08:16 (Breo Ellipta 200-25 Inh) 1 puff DAILY INH 01/17/18 09:00 01/21/18 08:18 (Ditropan) 5 mg Q12HR PO 01/16/18 21:00 01/21/18 08:15 (Flomax) 0.4 mg HS PO 01/16/18 21:00 01/20/18 22:12 Patient Own Medication PT OWN MED: (Methylcellulose Pow... DAILY PO 01/17/18 09:00 Future Hold (Desyrel) 200 mg HS PO 01/16/18 21:00 01/20/18 22:12 (Cardura) 12 mg DAILY PO 01/18/18 09:00 01/21/18 08:16 ([place] 5-325 Mg) 1 tab Q4H PRN PO 01/17/18 14:45 01/18/18 19:40 ([place] 5-325 Mg) 2 tab Q4H PRN PO 01/17/18 14:45 01/21/18 05:48 (Prinivil) 20 mg Q12HR PO 01/19/18 11:15 01/21/18 08:15 (Catapres) 0.1 mg Q6H PRN PO 01/19/18 11:15 01/21/18 00:41 (Zovirax) 800 mg 5 TIMES A DAY PO 01/20/18 18:00 01/27/18 17:59 01/21/18 05:48 (Mycostatin Powder) 1 applic DAILY PRN TOPICAL 01/20/18 16:30 (Cardizem) 30 mg Q8H PO 01/21/18 08:00 01/21/18 08:16 Assessment and Plan Problem List: (1) Pleural effusion on left ICD Codes: J90 - Pleural effusion, not elsewhere classified (2) Left lower lobe pneumonia ICD Codes: J18.1 - Lobar pneumonia, unspecified organism Status: Acute (3) COPD (chronic obstructive pulmonary disease) ICD Codes: J44.9 - Chronic obstructive pulmonary disease, unspecified Status: Acute (4) Hypertension ICD Codes: I10 - Essential (primary) hypertension Status: Chronic Assessment and Plan 01/19/18- Thoracentesis yesterday with 450 cc taken off. Denies SOB, B/P elevated running systolic 180's. Lisinopril increased to 40 mg daily PRN clonidine added for systolic greater than 160 or diastolic greater than 90 01/20/18- No complaints thia am, Chest tube placed yesterday for L pneumothorax. Report mild discomfort. Pulmonary following. BP better this am. 01/21/18- Seen this am, denies any CP, does have tenderness around Chest tube site. Followed by Pulmonary, BC negative x 4 days, AFB pleural pending, on Airborne precautions. Cont with bronchodilators, IV Rocephin azithromycin. b/p still running high, Cardizem added. Problem Qualifiers (1) Left lower lobe pneumonia: Qualified Codes: J18.1 - Lobar pneumonia, unspecified organism (2) COPD (chronic obstructive pulmonary disease): Qualified Codes: J44.1 - Chronic obstructive pulmonary disease with (acute) exacerbation Sulma Macias Jan 21, 2018 10:53
[2018-01-21] MEDS: cefTRIAXone INJ 2,000 MG in SODIUM CHLORIDE 0.9% INJ 100 ML IV SCH (15:06)
[2018-01-21] MEDS: AZITHROMYCIN INJ 500 MG in SODIUM CHLOR 0.9% 250 ML INJ 250 ML IV SCH (15:07)
[2018-01-21] MEDS: ENOXAPARIN SODIUM 40 MG/0.4 ML SYRINGE SQ SCH (15:11)
--- NOTE | 2018-01-21 18:26 | HHI.PR ---
Subjective Remarks 73 YOWM with COPD,Pn Pl eff Breathing better CP improved Denies sob Chest tube draining CXR no ptx Objective Vital Signs Vital Signs Date Time Temp Pulse Resp B/P (MAP) Pulse Ox O2 Delivery O2 Flow Rate FiO2 01/21/18 16:07 98.2 79 17 171/78 (109) 94 01/21/18 13:57 94 Nasal Cannula 2.00 01/21/18 12:07 98.5 58 17 184/86 (118) 95 01/21/18 12:00 58 01/21/18 08:07 98.2 59 18 179/84 (115) 94 01/21/18 08:00 53 01/21/18 08:00 Nasal Cannula 2.00 21 01/21/18 04:00 63 01/21/18 04:00 97.9 60 17 180/79 (112) 92 01/21/18 00:00 98.0 57 17 188/87 (120) 95 01/21/18 00:00 50 01/20/18 20:00 66 01/20/18 20:00 Nasal Cannula 2.00 01/20/18 20:00 98.1 75 18 162/74 (103) 92 I/O 01/20/18 01/20/18 01/20/18 01/21/18 01/21/18 01/21/18 07:00 15:00 23:00 07:00 15:00 23:00 Intake Total 360 ml 3253 ml 1000 ml Output Total 890 ml 250 ml 1780 ml Balance -890 ml 360 ml 3003 ml -780 ml Intake Oral 360 ml 2903 ml 0 ml IV Total 350 ml 1000 ml Output Urine Total 700 ml 200 ml 1500 ml Chest Tube Drainage Total 190 ml 50 ml 280 ml # Voids 1 # Bowel Movements 0 0 Result Diagram: 01/21/18 0536 01/21/18 0536 Objective Remarks GENERAL: Elderly male, NAD SKIN: Warm and dry. HEAD: Normocephalic. EYES: No scleral icterus. No injection or drainage. NECK: Supple, trachea midline. No JVD or lymphadenopathy. CARDIOVASCULAR: Regular rate and rhythm without murmurs, gallops, or rubs. RESPIRATORY: Breath sounds equal bilaterally. No accessory muscle use. Decreased BS left base GASTROINTESTINAL: Abdomen soft, non-tender, nondistended. MUSCULOSKELETAL: No cyanosis, or edema. BACK: Nontender without obvious deformity. No CVA tenderness. A/P Assessment and Plan IMPRESSION: 1. Left lung pneumonia. 2. Pleural effusion, possible parapneumonic pleural effusion. 3. Chronic obstructive pulmonary disease. 4. Nicotine use. 5. Alcohol use. 6. Hypertension. 7. Left PTX, s/p Chest tube PLAN: Chest tube to Suction Cont Abx Aerosol nebs Supplement 02 Chest tube management per radiology. Jose Giron MD Jan 21, 2018 18:26
[2018-01-21] MEDS: TAMSULOSIN HCL 0.4 MG CAP PO SCH (21:22)
[2018-01-21] MEDS: traZODone HCL 100 MG TAB PO SCH (21:22)
[2018-01-21] MEDS: ZOLPIDEM TARTRATE 5 MG TAB PO PRN (23:54)
[2018-01-22] VITALS (12 sets, daily range): BP systolic 145–202; BP diastolic 69–98; PULSE 50–87; RESP 16–20; TEMP 97.6–98.3; O2SAT 93–98
[2018-01-22] MEDS: ACYCLOVIR 800 MG TAB PO SCH ×5 (04:53→21:23)
[2018-01-22] MEDS: ACETAMINOPHEN/HYDROcodone 325 MG/5 MG TAB PO PRN ×4 (04:53→20:02)
[2018-01-22] MEDS: cloNIDine HCL 0.1 MG TAB PO PRN ×2 (04:53→21:26)
[2018-01-22] MEDS: SODIUM CHLOR 0.9% 1000 ML INJ 1,000 ML IV SCH ×3 (04:54→22:00)
[2018-01-22] MEDS: CYANOCOBALAMIN 1,000 MCG TAB PO SCH (08:23)
[2018-01-22] MEDS: DILTIAZEM HCL 30 MG TAB PO SCH ×2 (08:23→17:19)
[2018-01-22] MEDS: OXYBUTYNIN CHLORIDE 5 MG TAB PO SCH ×2 (08:24→21:24)
[2018-01-22] MEDS: DOXAZOSIN MESYLATE 4 MG TAB PO SCH (08:24)
[2018-01-22] MEDS: LISINOPRIL 20 MG TAB PO SCH ×2 (08:24→21:27)
[2018-01-22] MEDS: SODIUM CHLORIDE 0.9% FLUSH 10 ML FLUSH IV FLUSH SCH ×2 (08:24→21:28)
[2018-01-22] MEDS: DOCUSATE SODIUM 50 MG/SENNA 8.6 MG TAB PO SCH ×2 (08:24→21:23)
[2018-01-22] MEDS: FINASTERIDE 5 MG TAB PO SCH (08:24)
[2018-01-22] MEDS: FLUTICASONE 200 MCG/VILANTEROL 25 MCG INHALER INH SCH (08:25)
--- NOTE | 2018-01-22 09:49 | HHI.PR ---
Subjective Remarks Denies Cp, SOB Left chest tube in place to sx Objective Vital Signs Date Time Temp Pulse Resp B/P (MAP) Pulse Ox O2 Delivery O2 Flow Rate FiO2 01/22/18 08:00 97.8 54 16 202/94 (130) 96 01/22/18 04:45 97.6 68 17 () 93 175/80 (111) 01/22/18 04:45 Room Air 01/22/18 03:45 51 01/22/18 00:00 Room Air 01/22/18 00:00 01/22/18 00:00 98.1 58 17 178/88 (118) 94 01/21/18 23:41 61 01/21/18 20:00 Room Air 01/21/18 20:00 98.2 72 17 172/77 (108) 94 01/21/18 19:54 69 01/21/18 19:40 Nasal Cannula 2.00 01/21/18 16:07 98.2 79 17 171/78 (109) 94 01/21/18 16:00 72 01/21/18 13:57 94 Nasal Cannula 2.00 01/21/18 12:07 98.5 58 17 184/86 (118) 95 01/21/18 12:00 58 I/O 01/21/18 01/21/18 01/21/18 01/22/18 01/22/18 01/22/18 06:59 14:59 22:59 06:59 14:59 22:59 Intake Total 1000 ml 2190 ml 1363 ml Output Total 1780 ml 1200 ml 1850 ml Balance -780 ml 990 ml -487 ml Intake Oral 0 ml 840 ml 240 ml IV Total 1000 ml 1350 ml 1123 ml Output Urine Total 1500 ml 1100 ml 1400 ml Chest Tube Drainage Total 280 ml 100 ml 450 ml # Bowel Movements 0 0 0 Result Diagram: 01/21/18 0536 01/21/18 0536 Imaging Last 72 hours Impressions Chest X-Ray 01/20/18 0000 Signed Impressions: CONCLUSION: 1. No significant change left greater than right basilar consolidation and lef t pleural effusion. 2. Left chest tube remains in place. No perceptible pneumothorax. Procedures 01/18/18- Thoracentesis Left 450cc removed 01/20/18- L Chest tube placed Objective Remarks GENERAL:Well-developed patient, in no apparent distress. SKIN: . Warm and dry, dressing to left chest d/i, rash t left buttock EYES: Pupils equal round and reactive. Extraocular motions intact. No scleral icterus. No injection or drainage. HEENT: Unremarkable NECK: Trachea midline. No JVD CARDIOVASCULAR: Regular rate and rhythm without murmurs, gallops, or rubs. RESPIRATORY: BS equal, diminished at base, scattered exp wheezes GASTROINTESTINAL: Abdomen soft, non-tender, nondistended. MUSCULOSKELETAL: Extremities without clubbing, cyanosis, or edema. Negative Homans sign bilaterally. NEUROLOGICAL: Awake and alert. Normal speech. Medications and IVs Current Medications Medications (Trade) Dose Ordered Sig/Nayeli Route Start Time Stop Time Status Last Admin Sodium Chloride 1,000 ml @ 100 mls/hr Q10H IV 01/16/18 16:00 01/22/18 04:54 (NS Flush) 2 ml UNSCH PRN IV FLUSH 01/16/18 15:00 (NS Flush) 2 ml BID IV FLUSH 01/16/18 21:00 01/21/18 08:18 (Tylenol) 650 mg Q4H PRN PO 01/16/18 15:00 01/16/18 20:57 (Ambien) 5 mg HS PRN PO 01/16/18 15:00 01/21/18 23:54 (Lovenox Inj) 40 mg Q24H SQ 01/16/18 16:00 01/21/18 15:11 (Narcan Inj) 0.4 mg UNSCH PRN IV PUSH 01/16/18 15:00 (Elvie-Colace) 1 tab BID PO 01/16/18 21:00 01/20/18 22:13 (Milk Of Magnesia Liq) 30 ml Q12H PRN PO 01/16/18 15:00 (Senokot) 17.2 mg Q12H PRN PO 01/16/18 15:00 (Dulcolax Supp) 10 mg DAILY PRN RECTAL 01/16/18 15:00 (Lactulose Liq) 30 ml DAILY PRN PO 01/16/18 15:00 Azithromycin 500 mg/Sodium Chloride 250 ml @ 250 mls/hr Q24H IV 01/17/18 14:00 01/21/18 15:07 Ceftriaxone Sodium 2000 mg/ Sodium Chloride 100 ml @ 200 mls/hr Q24H IV 01/17/18 14:00 01/21/18 15:06 (Vitamin B12) 5,000 mcg DAILY PO 01/17/18 09:00 01/22/18 08:23 (Proscar) 5 mg DAILY PO 01/17/18 09:00 01/22/18 08:24 (Breo Ellipta 200-25 Inh) 1 puff DAILY INH 01/17/18 09:00 01/22/18 08:25 (Ditropan) 5 mg Q12HR PO 01/16/18 21:00 01/22/18 08:24 (Flomax) 0.4 mg HS PO 01/16/18 21:00 01/21/18 21:22 Patient Own Medication PT OWN MED: (Methylcellulose Pow... DAILY PO 01/17/18 09:00 Future Hold (Desyrel) 200 mg HS PO 01/16/18 21:00 01/21/18 21:22 (Cardura) 12 mg DAILY PO 01/18/18 09:00 01/22/18 08:24 ([place] 5-325 Mg) 1 tab Q4H PRN PO 01/17/18 14:45 01/18/18 19:40 ([place] 5-325 Mg) 2 tab Q4H PRN PO 01/17/18 14:45 01/22/18 09:28 (Prinivil) 20 mg Q12HR PO 01/19/18 11:15 01/22/18 08:24 (Catapres) 0.1 mg Q6H PRN PO 01/19/18 11:15 01/22/18 04:53 (Zovirax) 800 mg 5 TIMES A DAY PO 01/20/18 18:00 01/27/18 17:59 01/22/18 04:53 (Mycostatin Powder) 1 applic DAILY PRN TOPICAL 01/20/18 16:30 01/21/18 23:34 (Cardizem) 30 mg Q8H PO 01/21/18 08:00 01/22/18 08:23 Assessment and Plan Problem List: (1) Pleural effusion on left ICD Codes: J90 - Pleural effusion, not elsewhere classified (2) Left lower lobe pneumonia ICD Codes: J18.1 - Lobar pneumonia, unspecified organism Status: Acute (3) COPD (chronic obstructive pulmonary disease) ICD Codes: J44.9 - Chronic obstructive pulmonary disease, unspecified Status: Acute (4) Hypertension ICD Codes: I10 - Essential (primary) hypertension Status: Chronic Assessment and Plan 01/19/18- Thoracentesis yesterday with 450 cc taken off. Denies SOB, B/P elevated running systolic 180's. Lisinopril increased to 40 mg daily PRN clonidine added for systolic greater than 160 or diastolic greater than 90 01/20/18- No complaints thia am, Chest tube placed yesterday for L pneumothorax. Report mild discomfort. Pulmonary following. BP better this am. 01/21/18- Seen this am, denies any CP, does have tenderness around Chest tube site. Followed by Pulmonary, BC negative x 4 days, AFB pleural pending, on Airborne precautions. Cont with bronchodilators, IV Rocephin azithromycin. b/p still running high, Cardizem added. 01/22/18- B/P running high last documented . he is on multiple agents. Clonidine 0.2mg patch added. Chest tube to sx, Afebrile, Pleural fluid AFB and Fungal pending. contact precautions for questionable shingles. NO BM x 5 days MOM today Problem Qualifiers (1) Left lower lobe pneumonia: Qualified Codes: J18.1 - Lobar pneumonia, unspecified organism (2) COPD (chronic obstructive pulmonary disease): Qualified Codes: J44.1 - Chronic obstructive pulmonary disease with (acute) exacerbation Sulma Macias Jan 22, 2018 09:48
[2018-01-22] MEDS: cloNIDine HCL 0.2 MG/24 HR PATCH T-DERMAL SCH (10:26)
--- NOTE | 2018-01-22 11:29 | HHI.PR ---
Subjective Remarks 73 YOWM with COPD,Pn Pl eff Breathing better CP improved Denies sob Chest tube draining Weaned to RA Denies sob Objective Vital Signs Vital Signs Date Time Temp Pulse Resp B/P (MAP) Pulse Ox O2 Delivery O2 Flow Rate FiO2 01/22/18 10:26 84 159/77 (104) 01/22/18 08:00 50 01/22/18 08:00 97.8 54 16 202/94 (130) 96 01/22/18 08:00 96 Room Air 01/22/18 04:45 97.6 68 17 () 93 175/80 (111) 01/22/18 04:45 Room Air 01/22/18 03:45 51 01/22/18 00:00 Room Air 01/22/18 00:00 01/22/18 00:00 98.1 58 17 178/88 (118) 94 01/21/18 23:41 61 01/21/18 20:00 Room Air 01/21/18 20:00 98.2 72 17 172/77 (108) 94 01/21/18 19:54 69 01/21/18 19:40 Nasal Cannula 2.00 01/21/18 16:07 98.2 79 17 171/78 (109) 94 01/21/18 16:00 72 01/21/18 13:57 94 Nasal Cannula 2.00 01/21/18 12:07 98.5 58 17 184/86 (118) 95 01/21/18 12:00 58 I/O 01/21/18 01/21/18 01/21/18 01/22/18 01/22/18 01/22/18 07:00 15:00 23:00 07:00 15:00 23:00 Intake Total 1000 ml 2190 ml 1363 ml Output Total 1780 ml 1200 ml 1850 ml Balance -780 ml 990 ml -487 ml Intake Oral 0 ml 840 ml 240 ml IV Total 1000 ml 1350 ml 1123 ml Output Urine Total 1500 ml 1100 ml 1400 ml Chest Tube Drainage Total 280 ml 100 ml 450 ml # Bowel Movements 0 0 0 Result Diagram: 01/21/1853501/21/18535 Objective Remarks GENERAL: Elderly male, NAD SKIN: Warm and dry. HEAD: Normocephalic. EYES: No scleral icterus. No injection or drainage. NECK: Supple, trachea midline. No JVD or lymphadenopathy. CARDIOVASCULAR: Regular rate and rhythm without murmurs, gallops, or rubs. RESPIRATORY: Breath sounds equal bilaterally. No accessory muscle use. Decreased BS left base GASTROINTESTINAL: Abdomen soft, non-tender, nondistended. MUSCULOSKELETAL: No cyanosis, or edema. BACK: Nontender without obvious deformity. No CVA tenderness. A/P Assessment and Plan IMPRESSION: 1. Left lung pneumonia. 2. Pleural effusion, possible parapneumonic pleural effusion. 3. Chronic obstructive pulmonary disease. 4. Nicotine use. 5. Alcohol use. 6. Hypertension. 7. Left PTX, s/p Chest tube PLAN: Chest tube to Suction Cont Abx Aerosol nebs Chest tube management per radiology. Stable on RA Jose Giron MD Jan 22, 2018 11:29
[2018-01-22] MEDS: MAGNESIUM HYDROXIDE SUSP 30 ML CUP PO PRN (13:33)
[2018-01-22] MEDS: AZITHROMYCIN INJ 500 MG in SODIUM CHLOR 0.9% 250 ML INJ 250 ML IV SCH (14:41)
[2018-01-22] MEDS: cefTRIAXone INJ 2,000 MG in SODIUM CHLORIDE 0.9% INJ 100 ML IV SCH (14:42)
[2018-01-22] MEDS: ENOXAPARIN SODIUM 40 MG/0.4 ML SYRINGE SQ SCH (17:20)
[2018-01-22] MEDS: TAMSULOSIN HCL 0.4 MG CAP PO SCH (21:24)
[2018-01-22] MEDS: traZODone HCL 100 MG TAB PO SCH (21:24)
[2018-01-22] MEDS: LACTULOSE SYRUP 20 GM/30 ML CUP PO PRN (21:25)
[2018-01-23] VITALS (10 sets, daily range): BP systolic 157–188; BP diastolic 76–93; PULSE 50–107; RESP 18; TEMP 97.7–98.3; O2SAT 93–99
[2018-01-23] MEDS: DILTIAZEM HCL 30 MG TAB PO SCH ×4 (00:40→23:24)
[2018-01-23] MEDS: ACETAMINOPHEN/HYDROcodone 325 MG/5 MG TAB PO PRN ×6 (00:40→23:24)
[2018-01-23] MEDS: ACYCLOVIR 800 MG TAB PO SCH ×5 (05:05→21:40)
[2018-01-23] MEDS: SODIUM CHLOR 0.9% 1000 ML INJ 1,000 ML IV SCH ×4 (05:11→21:37)
[2018-01-23] MEDS: SODIUM CHLORIDE 0.9% FLUSH 10 ML FLUSH IV FLUSH SCH ×2 (09:00→21:00)
[2018-01-23] MEDS: CYANOCOBALAMIN 1,000 MCG TAB PO SCH (09:17)
[2018-01-23] MEDS: DOCUSATE SODIUM 50 MG/SENNA 8.6 MG TAB PO SCH ×2 (09:18→21:40)
[2018-01-23] MEDS: MAGNESIUM HYDROXIDE SUSP 30 ML CUP PO PRN (09:18)
[2018-01-23] MEDS: OXYBUTYNIN CHLORIDE 5 MG TAB PO SCH ×2 (09:19→21:40)
[2018-01-23] MEDS: FINASTERIDE 5 MG TAB PO SCH (09:19)
[2018-01-23] MEDS: DOXAZOSIN MESYLATE 4 MG TAB PO SCH (09:19)
[2018-01-23] MEDS: cloNIDine HCL 0.1 MG TAB PO PRN ×2 (09:19→21:40)
[2018-01-23] MEDS: LISINOPRIL 20 MG TAB PO SCH ×2 (09:20→21:40)
[2018-01-23] MEDS: FLUTICASONE 200 MCG/VILANTEROL 25 MCG INHALER INH SCH (09:20)
--- NOTE | 2018-01-23 10:39 | HHI.PR ---
Subjective Remarks Patient more confused today and I am told Pulm is starting steroids and changing to Bi-Pap. Objective Vital Signs Date Time Temp Pulse Resp B/P (MAP) Pulse Ox O2 Delivery O2 Flow Rate FiO2 01/23/18 09:54 93 Nasal Cannula 2.00 01/23/18 08:00 97.7 107 18 178/89 (118) 93 01/23/18 04:00 59 01/23/18 04:00 98.0 64 18 171/79 (109) 93 01/23/18 00:00 54 01/23/18 00:00 98.1 74 18 170/90 (116) 96 01/22/18 20:00 98.2 78 20 190/98 (128) 98 01/22/18 20:00 60 01/22/18 20:00 Nasal Cannula 2.00 01/22/18 17:43 94 Nasal Cannula 2.00 01/22/18 17:30 61 01/22/18 17:30 94 Nasal Cannula 2.00 01/22/18 16:00 98.3 87 18 166/74 (104) 94 01/22/18 13:49 54 01/22/18 13:49 96 Room Air 01/22/18 13:33 96 21 01/22/18 12:00 98.0 61 16 145/69 (94) 94 I/O 01/22/18 01/22/18 01/22/18 01/23/18 01/23/18 01/23/18 07:00 15:00 23:00 07:00 15:00 23:00 Intake Total 1363 ml 560 ml 1240 ml Output Total 1850 ml 1630 ml 1130 ml Balance -487 ml -1070 ml 110 ml Intake Oral 240 ml 560 ml 240 ml IV Total 1123 ml 1000 ml Output Urine Total 1400 ml 1630 ml 1100 ml Chest Tube Drainage Total 450 ml 30 ml # Bowel Movements 0 0 Result Diagram: 01/21/18 0536 01/21/18 0536 Procedures 01/18/18- Thoracentesis Left 450cc removed 01/20/18- L Chest tube placed Objective Remarks GENERAL: Awake but more confused SKIN: Warm and dry. HEAD: Normocephalic. EYES: No scleral icterus. No injection or drainage. NECK: Supple, trachea midline. No JVD or lymphadenopathy. CARDIOVASCULAR: Regular rate and rhythm without murmurs, gallops, or rubs. RESPIRATORY: Breath sounds diminished with bilat rhonchi. CT to suction GASTROINTESTINAL: Abdomen soft, non-tender, nondistended. MUSCULOSKELETAL: No cyanosis, or edema. BACK: Nontender without obvious deformity. No CVA tenderness. Medications and IVs Current Medications Medications (Trade) Dose Ordered Sig/Nayeli Route Start Time Stop Time Status Last Admin Sodium Chloride 1,000 ml @ 100 mls/hr Q10H IV 01/16/18 16:00 01/23/18 05:11 (NS Flush) 2 ml UNSCH PRN IV FLUSH 01/16/18 15:00 (NS Flush) 2 ml BID IV FLUSH 01/16/18 21:00 01/22/18 21:28 (Tylenol) 650 mg Q4H PRN PO 01/16/18 15:00 01/16/18 20:57 (Ambien) 5 mg HS PRN PO 01/16/18 15:00 01/21/18 23:54 (Lovenox Inj) 40 mg Q24H SQ 01/16/18 16:00 01/22/18 17:20 (Narcan Inj) 0.4 mg UNSCH PRN IV PUSH 01/16/18 15:00 (Elvie-Colace) 1 tab BID PO 01/16/18 21:00 01/23/18 09:18 (Milk Of Magnesia Liq) 30 ml Q12H PRN PO 01/16/18 15:00 01/23/18 09:18 (Senokot) 17.2 mg Q12H PRN PO 01/16/18 15:00 (Dulcolax Supp) 10 mg DAILY PRN RECTAL 01/16/18 15:00 (Lactulose Liq) 30 ml DAILY PRN PO 01/16/18 15:00 01/22/18 21:25 Azithromycin 500 mg/Sodium Chloride 250 ml @ 250 mls/hr Q24H IV 01/17/18 14:00 01/22/18 14:41 Ceftriaxone Sodium 2000 mg/ Sodium Chloride 100 ml @ 200 mls/hr Q24H IV 01/17/18 14:00 01/22/18 14:42 (Vitamin B12) 5,000 mcg DAILY PO 01/17/18 09:00 01/23/18 09:17 (Proscar) 5 mg DAILY PO 01/17/18 09:00 01/23/18 09:19 (Breo Ellipta 200-25 Inh) 1 puff DAILY INH 01/17/18 09:00 01/23/18 09:20 (Ditropan) 5 mg Q12HR PO 01/16/18 21:00 01/23/18 09:19 (Flomax) 0.4 mg HS PO 01/16/18 21:00 01/22/18 21:24 Patient Own Medication PT OWN MED: (Methylcellulose Pow... DAILY PO 01/17/18 09:00 Future Hold (Desyrel) 200 mg HS PO 01/16/18 21:00 01/22/18 21:24 (Cardura) 12 mg DAILY PO 01/18/18 09:00 01/23/18 09:19 ([place] 5-325 Mg) 1 tab Q4H PRN PO 01/17/18 14:45 01/18/18 19:40 ([place] 5-325 Mg) 2 tab Q4H PRN PO 01/17/18 14:45 01/23/18 09:17 (Prinivil) 20 mg Q12HR PO 01/19/18 11:15 01/23/18 09:20 (Catapres) 0.1 mg Q6H PRN PO 01/19/18 11:15 01/23/18 09:19 (Zovirax) 800 mg 5 TIMES A DAY PO 01/20/18 18:00 01/27/18 17:59 01/23/18 09:18 (Mycostatin Powder) 1 applic DAILY PRN TOPICAL 01/20/18 16:30 01/21/18 23:34 (Cardizem) 30 mg Q8H PO 01/21/18 08:00 01/23/18 09:19 (Catapres-Tts 0.2 Mg Patch.7d) 1 patch Q7D T-DERMAL 01/22/18 10:00 01/22/18 10:26 Assessment and Plan Problem List: (1) Tobacco abuse ICD Codes: Z72.0 - Tobacco use Status: Chronic Plan: Now quit times 2 months (2) Weakness ICD Codes: R53.1 - Weakness Status: Chronic Plan: Using W/C but can stand alone, this is not a new problem. (3) HTN (hypertension) ICD Codes: I10 - Essential (primary) hypertension Status: Chronic Plan: Cont current regimen and monitor (4) BPH (benign prostatic hyperplasia) ICD Codes: N40.0 - Benign prostatic hyperplasia without lower urinary tract symptoms Status: Chronic Plan: Cont present meds from home (5) COPD (chronic obstructive pulmonary disease) ICD Codes: J44.9 - Chronic obstructive pulmonary disease, unspecified Status: Acute Plan: F/U Pulm recommendations and cont antibiotics. CT to suction. Steroids to be started per Pulm and changing to Bi-Pap (6) Left lower lobe pneumonia ICD Codes: J18.1 - Lobar pneumonia, unspecified organism Status: Acute Plan: CT in place and changing to Bi-Pap today. Cont antibiotics and F/U recommendation per Pulmonary (7) Pleural effusion on left ICD Codes: J90 - Pleural effusion, not elsewhere classified Plan: S/P CT placement post thoracentesis. Assessment and Plan LLL PNA and CP associated with pulmonary disease including pleural effusion. Cards following but prelim findings are not compatible with pain from angina. Discussed Condition With velvet cutter Planning Prob SNF placement Problem Qualifiers (1) HTN (hypertension): Qualified Codes: I10 - Essential (primary) hypertension (2) BPH (benign prostatic hyperplasia): Qualified Codes: N40.0 - Benign prostatic hyperplasia without lower urinary tract symptoms (3) COPD (chronic obstructive pulmonary disease): Qualified Codes: J44.1 - Chronic obstructive pulmonary disease with (acute) exacerbation (4) Left lower lobe pneumonia: Qualified Codes: J18.1 - Lobar pneumonia, unspecified organism Donovan Villeda Jan 23, 2018 10:39
--- NOTE | 2018-01-23 12:51 | HHI.PR ---
Subjective Remarks PMEUMONIA PARA PNEUMONIC EFFUSION COPD PLAN O2 NEEDED BRONCHODILATOR THERAPY REMOVE CT WHEN POSSIBLE Objective Vital Signs Date Time Temp Pulse Resp B/P (MAP) Pulse Ox O2 Delivery O2 Flow Rate FiO2 01/23/18 12:00 98.3 69 18 188/93 (124) 95 01/23/18 09:54 93 Nasal Cannula 2.00 01/23/18 08:00 97.7 107 18 178/89 (118) 93 01/23/18 04:00 59 01/23/18 04:00 98.0 64 18 171/79 (109) 93 01/23/18 00:00 54 01/23/18 00:00 98.1 74 18 170/90 (116) 96 01/22/18 20:00 98.2 78 20 190/98 (128) 98 01/22/18 20:00 60 01/22/18 20:00 Nasal Cannula 2.00 01/22/18 17:43 94 Nasal Cannula 2.00 01/22/18 17:30 61 01/22/18 17:30 94 Nasal Cannula 2.00 01/22/18 16:00 98.3 87 18 166/74 (104) 94 01/22/18 13:49 54 01/22/18 13:49 96 Room Air 01/22/18 13:33 96 21 I/O 01/22/18 01/22/18 01/22/18 01/23/18 01/23/18 01/23/18 07:00 15:00 23:00 07:00 15:00 23:00 Intake Total 1363 ml 560 ml 1240 ml Output Total 1850 ml 1630 ml 1130 ml Balance -487 ml -1070 ml 110 ml Intake Oral 240 ml 560 ml 240 ml IV Total 1123 ml 1000 ml Output Urine Total 1400 ml 1630 ml 1100 ml Chest Tube Drainage Total 450 ml 30 ml # Bowel Movements 0 0 Result Diagram: 01/21/18 0536 01/21/18 0536 Procedures 01/18/18- Thoracentesis Left 450cc removed 01/20/18- L Chest tube placed Alysha Encarnacion MD Jan 23, 2018 12:51
[2018-01-23] MEDS: cefTRIAXone INJ 2,000 MG in SODIUM CHLORIDE 0.9% INJ 100 ML IV SCH (13:08)
[2018-01-23] MEDS: AZITHROMYCIN INJ 500 MG in SODIUM CHLOR 0.9% 250 ML INJ 250 ML IV SCH (14:56)
[2018-01-23] MEDS: ENOXAPARIN SODIUM 40 MG/0.4 ML SYRINGE SQ SCH (17:32)
[2018-01-23] MEDS: LACTULOSE SYRUP 20 GM/30 ML CUP PO PRN (19:18)
[2018-01-23] MEDS: TAMSULOSIN HCL 0.4 MG CAP PO SCH (21:40)
[2018-01-23] MEDS: traZODone HCL 100 MG TAB PO SCH (23:23)
[2018-01-24] VITALS (12 sets, daily range): BP systolic 141–196; BP diastolic 64–92; PULSE 45–97; RESP 15–19; TEMP 97.3–98; O2SAT 94–99
[2018-01-24] MEDS: SODIUM CHLOR 0.9% 1000 ML INJ 1,000 ML IV SCH ×3 (04:00→23:29)
[2018-01-24] MEDS: ACYCLOVIR 800 MG TAB PO SCH ×5 (06:15→23:29)
[2018-01-24] MEDS: ACETAMINOPHEN/HYDROcodone 325 MG/5 MG TAB PO PRN ×4 (06:15→21:49)
[2018-01-24] MEDS: cloNIDine HCL 0.1 MG TAB PO PRN ×2 (07:52→15:36)
[2018-01-24] MEDS: SODIUM CHLORIDE 0.9% FLUSH 10 ML FLUSH IV FLUSH SCH ×2 (09:00→21:50)
[2018-01-24] MEDS: CYANOCOBALAMIN 1,000 MCG TAB PO SCH (09:22)
[2018-01-24] MEDS: OXYBUTYNIN CHLORIDE 5 MG TAB PO SCH ×2 (09:22→21:46)
[2018-01-24] MEDS: DOXAZOSIN MESYLATE 4 MG TAB PO SCH (09:22)
[2018-01-24] MEDS: LISINOPRIL 20 MG TAB PO SCH ×2 (09:22→21:46)
[2018-01-24] MEDS: FINASTERIDE 5 MG TAB PO SCH (09:22)
[2018-01-24] MEDS: DILTIAZEM HCL 30 MG TAB PO SCH ×3 (09:22→23:29)
[2018-01-24] MEDS: DOCUSATE SODIUM 50 MG/SENNA 8.6 MG TAB PO SCH ×2 (09:22→21:00)
[2018-01-24] MEDS: FLUTICASONE 200 MCG/VILANTEROL 25 MCG INHALER INH SCH (09:23)
--- NOTE | 2018-01-24 13:11 | HHI.PR ---
Subjective Remarks Patient not confused today and breathing is better on O2 NC. Objective Vital Signs Date Time Temp Pulse Resp B/P (MAP) Pulse Ox O2 Delivery O2 Flow Rate FiO2 01/24/18 11:17 97.6 52 15 141/64 (89) 97 01/24/18 09:25 53 183/85 (117) 95 01/24/18 08:20 99 Nasal Cannula 1.00 01/24/18 08:09 46 01/24/18 08:00 97.5 69 18 196/92 (126) 97 01/24/18 08:00 Nasal Cannula 2.00 21 01/24/18 04:00 79 01/24/18 04:00 97.7 61 18 183/81 (115) 94 01/24/18 00:00 97.6 52 18 195/81 (119) 96 01/24/18 00:00 Nasal Cannula 2.00 01/24/18 00:00 50 01/23/18 21:40 Nasal Cannula 2.00 01/23/18 20:00 97.9 57 18 170/88 (115) 98 01/23/18 20:00 50 01/23/18 17:29 99 Nasal Cannula 2.00 01/23/18 16:06 73 01/23/18 16:00 98.2 64 18 157/76 (103) 99 I/O 01/23/18 01/23/18 01/23/18 01/24/18 01/24/18 01/24/18 07:00 15:00 23:00 07:00 15:00 23:00 Intake Total 1240 ml 100 ml 1730 ml 1000 ml Output Total 1130 ml 975 ml 1170 ml Balance 110 ml 100 ml 755 ml -1170 ml 1000 ml Intake Oral 240 ml 480 ml IV Total 1000 ml 100 ml 1250 ml 1000 ml Output Urine Total 1100 ml 950 ml 1100 ml Chest Tube Drainage Total 30 ml 25 ml 70 ml # Bowel Movements 0 3 Result Diagram: 01/21/18 0536 01/21/18 0536 Procedures 01/18/18- Thoracentesis Left 450cc removed 01/20/18- L Chest tube placed Objective Remarks GENERAL: Awake and alert SKIN: Warm and dry. HEAD: Normocephalic. EYES: No scleral icterus. No injection or drainage. NECK: Supple, trachea midline. No JVD or lymphadenopathy. CARDIOVASCULAR: Regular rate and rhythm without murmurs, gallops, or rubs. RESPIRATORY: Breath sounds with scattered bilat rhonchi. CT to suction GASTROINTESTINAL: Abdomen soft, non-tender, nondistended. MUSCULOSKELETAL: No cyanosis, or edema. BACK: Nontender without obvious deformity. No CVA tenderness. Medications and IVs Current Medications Medications (Trade) Dose Ordered Sig/Nayeli Route Start Time Stop Time Status Last Admin Sodium Chloride 1,000 ml @ 100 mls/hr Q10H IV 01/16/18 16:00 01/24/18 11:30 (NS Flush) 2 ml UNSCH PRN IV FLUSH 01/16/18 15:00 (NS Flush) 2 ml BID IV FLUSH 01/16/18 21:00 01/22/18 21:28 (Tylenol) 650 mg Q4H PRN PO 01/16/18 15:00 01/16/18 20:57 (Ambien) 5 mg HS PRN PO 01/16/18 15:00 01/21/18 23:54 (Lovenox Inj) 40 mg Q24H SQ 01/16/18 16:00 01/23/18 17:32 (Narcan Inj) 0.4 mg UNSCH PRN IV PUSH 01/16/18 15:00 (Elvie-Colace) 1 tab BID PO 01/16/18 21:00 01/24/18 09:22 (Milk Of Magnesia Liq) 30 ml Q12H PRN PO 01/16/18 15:00 01/23/18 09:18 (Senokot) 17.2 mg Q12H PRN PO 01/16/18 15:00 (Dulcolax Supp) 10 mg DAILY PRN RECTAL 01/16/18 15:00 01/23/18 21:40 (Lactulose Liq) 30 ml DAILY PRN PO 01/16/18 15:00 01/23/18 19:18 Azithromycin 500 mg/Sodium Chloride 250 ml @ 250 mls/hr Q24H IV 01/17/18 14:00 01/23/18 14:56 Ceftriaxone Sodium 2000 mg/ Sodium Chloride 100 ml @ 200 mls/hr Q24H IV 01/17/18 14:00 01/23/18 13:08 (Vitamin B12) 5,000 mcg DAILY PO 01/17/18 09:00 01/24/18 09:22 (Proscar) 5 mg DAILY PO 01/17/18 09:00 01/24/18 09:22 (Breo Ellipta 200-25 Inh) 1 puff DAILY INH 01/17/18 09:00 01/24/18 09:23 (Ditropan) 5 mg Q12HR PO 01/16/18 21:00 01/24/18 09:22 (Flomax) 0.4 mg HS PO 01/16/18 21:00 01/23/18 21:40 Patient Own Medication PT OWN MED: (Methylcellulose Pow... DAILY PO 01/17/18 09:00 Future Hold (Desyrel) 200 mg HS PO 01/16/18 21:00 01/23/18 23:23 (Cardura) 12 mg DAILY PO 01/18/18 09:00 01/24/18 09:22 ([place] 5-325 Mg) 1 tab Q4H PRN PO 01/17/18 14:45 01/24/18 11:20 ([place] 5-325 Mg) 2 tab Q4H PRN PO 01/17/18 14:45 01/24/18 06:15 (Prinivil) 20 mg Q12HR PO 01/19/18 11:15 01/24/18 09:22 (Catapres) 0.1 mg Q6H PRN PO 01/19/18 11:15 01/24/18 07:52 (Zovirax) 800 mg 5 TIMES A DAY PO 01/20/18 18:00 01/27/18 17:59 01/24/18 09:35 (Mycostatin Powder) 1 applic DAILY PRN TOPICAL 01/20/18 16:30 01/21/18 23:34 (Cardizem) 30 mg Q8H PO 01/21/18 08:00 01/24/18 09:22 (Catapres-Tts 0.2 Mg Patch.7d) 1 patch Q7D T-DERMAL 01/22/18 10:00 01/22/18 10:26 Assessment and Plan Problem List: (1) Tobacco abuse ICD Codes: Z72.0 - Tobacco use Status: Chronic Plan: Now quit times 2 months (2) Weakness ICD Codes: R53.1 - Weakness Status: Chronic Plan: Using W/C but can stand alone, this is not a new problem. (3) HTN (hypertension) ICD Codes: I10 - Essential (primary) hypertension Status: Chronic Plan: Increase ACEI to 20 mg BID (4) BPH (benign prostatic hyperplasia) ICD Codes: N40.0 - Benign prostatic hyperplasia without lower urinary tract symptoms Status: Chronic Plan: Cont present meds from home (5) COPD (chronic obstructive pulmonary disease) ICD Codes: J44.9 - Chronic obstructive pulmonary disease, unspecified Status: Acute Plan: F/U Pulm recommendations and cont antibiotics. CT to suction. Steroids to be started per Pulm and changing to Bi-Pap (6) Left lower lobe pneumonia ICD Codes: J18.1 - Lobar pneumonia, unspecified organism Status: Acute Plan: CT in place and changing to Bi-Pap today. Cont antibiotics and F/U recommendation per Pulmonary (7) Pleural effusion on left ICD Codes: J90 - Pleural effusion, not elsewhere classified Plan: S/P CT placement post thoracentesis. Assessment and Plan LLL PNA and CP associated with pulmonary disease including pleural effusion. Cards following but prelim findings are not compatible with pain from angina. Will increase quinipril today due to poorly controlled HTN Discussed Condition With patient Discharge Planning HOme Problem Qualifiers (1) HTN (hypertension): Qualified Codes: I10 - Essential (primary) hypertension (2) BPH (benign prostatic hyperplasia): Qualified Codes: N40.0 - Benign prostatic hyperplasia without lower urinary tract symptoms (3) COPD (chronic obstructive pulmonary disease): Qualified Codes: J44.1 - Chronic obstructive pulmonary disease with (acute) exacerbation (4) Left lower lobe pneumonia: Qualified Codes: J18.1 - Lobar pneumonia, unspecified organism Donovan Villeda Jan 24, 2018 13:11
[2018-01-24] MEDS: cefTRIAXone INJ 2,000 MG in SODIUM CHLORIDE 0.9% INJ 100 ML IV SCH (14:38)
[2018-01-24] MEDS: AZITHROMYCIN INJ 500 MG in SODIUM CHLOR 0.9% 250 ML INJ 250 ML IV SCH (15:18)
--- NOTE | 2018-01-24 16:49 | HHI.PR ---
Subjective Remarks PMEUMONIA PARA PNEUMONIC EFFUSION COPD Objective Vital Signs Date Time Temp Pulse Resp B/P (MAP) Pulse Ox O2 Delivery O2 Flow Rate FiO2 01/24/18 12:08 45 01/24/18 11:17 97.6 52 15 141/64 (89) 97 01/24/18 09:25 53 183/85 (117) 95 01/24/18 08:20 99 Nasal Cannula 1.00 01/24/18 08:09 46 01/24/18 08:00 97.5 69 18 196/92 (126) 97 01/24/18 08:00 Nasal Cannula 2.00 21 01/24/18 04:00 79 01/24/18 04:00 97.7 61 18 183/81 (115) 94 01/24/18 00:00 97.6 52 18 195/81 (119) 96 01/24/18 00:00 Nasal Cannula 2.00 01/24/18 00:00 50 01/23/18 21:40 Nasal Cannula 2.00 01/23/18 20:00 97.9 57 18 170/88 (115) 98 01/23/18 20:00 50 01/23/18 17:29 99 Nasal Cannula 2.00 I/O 01/23/18 01/23/18 01/23/18 01/24/18 01/24/18 01/24/18 06:59 14:59 22:59 06:59 14:59 22:59 Intake Total 1240 ml 100 ml 1730 ml 1000 ml 100 ml Output Total 1130 ml 975 ml 1170 ml Balance 110 ml 100 ml 755 ml -1170 ml 1000 ml 100 ml Intake Oral 240 ml 480 ml IV Total 1000 ml 100 ml 1250 ml 1000 ml 100 ml Output Urine Total 1100 ml 950 ml 1100 ml Chest Tube Drainage Total 30 ml 25 ml 70 ml # Bowel Movements 0 3 Result Diagram: 01/21/18 0536 01/21/18 0536 Procedures 01/18/18- Thoracentesis Left 450cc removed 01/20/18- L Chest tube placed Objective Remarks GENERAL: SKIN: Warm and dry. HEAD: Atraumatic. Normocephalic. EYES: Pupils equal and round. No scleral icterus. No injection or drainage. ENT: No nasal bleeding or discharge. Mucous membranes pink and moist. NECK: Trachea midline. No JVD. CARDIOVASCULAR: Regular rate and rhythm. RESPIRATORY: No accessory muscle use. Clear to auscultation. Breath sounds equal bilaterally. GASTROINTESTINAL: Abdomen soft, non-tender, nondistended. Hepatic and splenic margins not palpable. MUSCULOSKELETAL: Extremities without clubbing, cyanosis, or edema. No obvious deformities. NEUROLOGICAL: Awake and alert. No obvious cranial nerve deficits. Motor grossly within normal limits. Five out of 5 muscle strength in the arms and legs. Normal speech. PSYCHIATRIC: Appropriate mood and affect; insight and judgment normal. Assessment and Plan Assessment and Plan IMP PNA PARA PNEUMONIC EFFUSION LT PNX, CHEST TUBE IN PLACE PLAN O2 NEEDED ANTIBX REMOVE CT WHEN POSSIBLE Alysha Encarnacion MD Jan 24, 2018 16:49
[2018-01-24] MEDS: ENOXAPARIN SODIUM 40 MG/0.4 ML SYRINGE SQ SCH (16:58)
[2018-01-24] MEDS: TAMSULOSIN HCL 0.4 MG CAP PO SCH (21:46)
[2018-01-24] MEDS: traZODone HCL 100 MG TAB PO SCH (21:47)
[2018-01-24] MEDS: ZOLPIDEM TARTRATE 5 MG TAB PO PRN ×2 (21:47→23:00)
[2018-01-25] VITALS (10 sets, daily range): BP systolic 161–194; BP diastolic 75–88; PULSE 46–65; RESP 17–18; TEMP 97.2–97.9; O2SAT 97–98
[2018-01-25] MEDS: cloNIDine HCL 0.1 MG TAB PO PRN (04:03)
[2018-01-25] MEDS: ACETAMINOPHEN/HYDROcodone 325 MG/5 MG TAB PO PRN ×5 (04:04→22:17)
[2018-01-25] MEDS: ACYCLOVIR 800 MG TAB PO SCH ×5 (05:34→22:17)
[2018-01-25] MEDS: SODIUM CHLORIDE 0.9% FLUSH 10 ML FLUSH IV FLUSH SCH ×2 (09:21→20:13)
[2018-01-25] MEDS: DOCUSATE SODIUM 50 MG/SENNA 8.6 MG TAB PO SCH ×2 (09:22→20:12)
[2018-01-25] MEDS: DOXAZOSIN MESYLATE 4 MG TAB PO SCH (09:22)
[2018-01-25] MEDS: CYANOCOBALAMIN 1,000 MCG TAB PO SCH (09:22)
[2018-01-25] MEDS: OXYBUTYNIN CHLORIDE 5 MG TAB PO SCH ×2 (09:22→20:13)
[2018-01-25] MEDS: FINASTERIDE 5 MG TAB PO SCH (09:22)
[2018-01-25] MEDS: DILTIAZEM HCL 30 MG TAB PO SCH ×2 (09:22→17:07)
[2018-01-25] MEDS: LISINOPRIL 20 MG TAB PO SCH ×2 (09:23→20:12)
[2018-01-25] MEDS: FLUTICASONE 200 MCG/VILANTEROL 25 MCG INHALER INH SCH (09:24)
[2018-01-25] MEDS: SODIUM CHLOR 0.9% 1000 ML INJ 1,000 ML IV SCH (09:34)
--- NOTE | 2018-01-25 11:21 | HHI.PR ---
Subjective Remarks No reported complaints Denies Cp, SOB Airborne Isolation Objective Vital Signs Date Time Temp Pulse Resp B/P (MAP) Pulse Ox O2 Delivery O2 Flow Rate FiO2 01/25/18 09:38 Nasal Cannula 2.00 Humidified 01/25/18 08:07 97.4 49 17 190/88 (122) 97 01/25/18 08:00 46 01/25/18 04:00 50 01/25/18 04:00 97.7 54 17 190/83 (118) 98 01/25/18 04:00 Nasal Cannula 2.00 Humidified 01/25/18 00:00 97.2 52 17 194/86 (122) 98 01/25/18 00:00 50 01/25/18 00:00 Nasal Cannula 2.00 Humidified 01/24/18 22:00 Nasal Cannula 2.00 Humidified 01/24/18 20:43 99 Nasal Cannula 1.00 01/24/18 20:00 98.0 52 19 192/83 (119) 98 01/24/18 20:00 50 01/24/18 16:20 46 01/24/18 16:00 97.6 56 18 181/81 (114) 98 01/24/18 12:08 45 I/O 01/24/18 01/24/18 01/24/18 01/25/18 01/25/18 01/25/18 07:00 15:00 23:00 07:00 15:00 23:00 Intake Total 1000 ml 830 ml 1548 ml Output Total 1170 ml 650 ml 1110 ml Balance -1170 ml 1000 ml 180 ml 438 ml Intake Oral 480 ml IV Total 1000 ml 350 ml 1548 ml Output Urine Total 1100 ml 600 ml 900 ml Chest Tube Drainage Total 70 ml 50 ml 210 ml # Bowel Movements 3 1 Result Diagram: 01/21/18 0536 01/21/18 0536 Imaging Last Impressions Chest X-Ray 01/20/18 0000 Signed Impressions: CONCLUSION: 1. No significant change left greater than right basilar consolidation and lef t pleural effusion. 2. Left chest tube remains in place. No perceptible pneumothorax. Chest Tube Insertion 01/19/18 0000 Signed Impressions: CONCLUSION: 1. Uncomplicated left chest tube placement as above. Chest CT 01/19/18 0000 Signed Impressions: CONCLUSION: 1. New small to moderate left-sided pneumothorax. 2. New nonspecific parenchymal consolidation in the posterior left upper lung. 3. New compressive atelectasis in the left lower lung with a left-sided pleura l effusion. 4. Right lower lung posterior atelectasis. Thoracentesis Ultrasound 01/18/18 0600 Signed Impressions: CONCLUSION: 1. Uncomplicated left thoracentesis with removal of 450 cc of fluid. 2. Air was removed during the thoracentesis as well indicating that a pneumoth orax was present. Postprocedure chest x-ray demonstrates general lucency in the left lung without a clear pleural line visualized. Suggest obtaining a chest C T for further evaluation to determine the size of the suspected pneumothorax. 3. Findings were telephoned to Dr. Giron. Procedures 01/18/18- Thoracentesis Left 450cc removed 01/20/18- L Chest tube placed Objective Remarks GENERAL:Well-developed patient, in no apparent distress. SKIN: . Warm and dry, dressing to left chest d/i, rash t left buttock EYES: Pupils equal round and reactive. Extraocular motions intact. No scleral icterus. No injection or drainage. HEENT: Unremarkable NECK: Trachea midline. No JVD CARDIOVASCULAR: Regular rate and rhythm without murmurs, gallops, or rubs. RESPIRATORY: BS equal, diminished at base, scattered exp wheezes GASTROINTESTINAL: Abdomen soft, non-tender, nondistended. MUSCULOSKELETAL: Extremities without clubbing, cyanosis, or edema. Negative Homans sign bilaterally. NEUROLOGICAL: Awake and alert. Normal speech. Medications and IVs Current Medications Medications (Trade) Dose Ordered Sig/Nayeli Route Start Time Stop Time Status Last Admin Sodium Chloride 1,000 ml @ 100 mls/hr Q10H IV 01/16/18 16:00 01/25/18 09:34 (NS Flush) 2 ml UNSCH PRN IV FLUSH 01/16/18 15:00 (NS Flush) 2 ml BID IV FLUSH 01/16/18 21:00 01/25/18 09:21 (Tylenol) 650 mg Q4H PRN PO 01/16/18 15:00 01/16/18 20:57 (Ambien) 5 mg HS PRN PO 01/16/18 15:00 01/24/18 23:00 (Lovenox Inj) 40 mg Q24H SQ 01/16/18 16:00 01/24/18 16:58 (Narcan Inj) 0.4 mg UNSCH PRN IV PUSH 01/16/18 15:00 (Elvie-Colace) 1 tab BID PO 01/16/18 21:00 01/25/18 09:22 (Milk Of Magnesia Liq) 30 ml Q12H PRN PO 01/16/18 15:00 01/23/18 09:18 (Senokot) 17.2 mg Q12H PRN PO 01/16/18 15:00 (Dulcolax Supp) 10 mg DAILY PRN RECTAL 01/16/18 15:00 01/23/18 21:40 (Lactulose Liq) 30 ml DAILY PRN PO 01/16/18 15:00 01/23/18 19:18 Azithromycin 500 mg/Sodium Chloride 250 ml @ 250 mls/hr Q24H IV 01/17/18 14:00 01/24/18 15:18 Ceftriaxone Sodium 2000 mg/ Sodium Chloride 100 ml @ 200 mls/hr Q24H IV 01/17/18 14:00 01/24/18 14:38 (Vitamin B12) 5,000 mcg DAILY PO 01/17/18 09:00 01/25/18 09:22 (Proscar) 5 mg DAILY PO 01/17/18 09:00 01/25/18 09:22 (Breo Ellipta 200-25 Inh) 1 puff DAILY INH 01/17/18 09:00 01/25/18 09:24 (Ditropan) 5 mg Q12HR PO 01/16/18 21:00 01/25/18 09:22 (Flomax) 0.4 mg HS PO 01/16/18 21:00 01/24/18 21:46 Patient Own Medication PT OWN MED: (Methylcellulose Pow... DAILY PO 01/17/18 09:00 Future Hold (Desyrel) 200 mg HS PO 01/16/18 21:00 01/24/18 21:47 (Cardura) 12 mg DAILY PO 01/18/18 09:00 01/25/18 09:22 ([place] 5-325 Mg) 1 tab Q4H PRN PO 01/17/18 14:45 01/25/18 04:04 ([place] 5-325 Mg) 2 tab Q4H PRN PO 01/17/18 14:45 01/25/18 09:34 (Catapres) 0.1 mg Q6H PRN PO 01/19/18 11:15 01/25/18 04:03 (Zovirax) 800 mg 5 TIMES A DAY PO 01/20/18 18:00 01/27/18 17:59 01/25/18 09:22 (Mycostatin Powder) 1 applic DAILY PRN TOPICAL 01/20/18 16:30 01/21/18 23:34 (Cardizem) 30 mg Q8H PO 01/21/18 08:00 01/25/18 09:22 ([place]-Tts 0.2 Mg Patch.7d) 1 patch Q7D T-DERMAL 01/22/18 10:00 01/22/18 10:26 (Prinivil) 30 mg Q12HR PO 01/24/18 21:00 01/25/18 09:23 Assessment and Plan Problem List: (1) Pleural effusion on left ICD Codes: J90 - Pleural effusion, not elsewhere classified (2) Left lower lobe pneumonia ICD Codes: J18.1 - Lobar pneumonia, unspecified organism Status: Acute (3) COPD (chronic obstructive pulmonary disease) ICD Codes: J44.9 - Chronic obstructive pulmonary disease, unspecified Status: Acute (4) Hypertension ICD Codes: I10 - Essential (primary) hypertension Status: Chronic Assessment and Plan 01/19/18- Thoracentesis yesterday with 450 cc taken off. Denies SOB, B/P elevated running systolic 180's. Lisinopril increased to 40 mg daily PRN clonidine added for systolic greater than 160 or diastolic greater than 90 01/20/18- No complaints thia am, Chest tube placed yesterday for L pneumothorax. Report mild discomfort. Pulmonary following. BP better this am. 01/21/18- Seen this am, denies any CP, does have tenderness around Chest tube site. Followed by Pulmonary, BC negative x 4 days, AFB pleural pending, on Airborne precautions. Cont with bronchodilators, IV Rocephin azithromycin. b/p still running high, Cardizem added. 01/22/18- B/P running high last documented . he is on multiple agents. Clonidine 0.2mg patch added. Chest tube to sx, Afebrile, Pleural fluid AFB and Fungal pending. contact precautions for questionable shingles. NO BM x 5 days MOM today 01/25/18 Still having high B/P he is on multiple agents. HR bradycardia,in the 40 -50. Will reconsult cardiology for assistance. Problem Qualifiers (1) Left lower lobe pneumonia: Qualified Codes: J18.1 - Lobar pneumonia, unspecified organism (2) COPD (chronic obstructive pulmonary disease): Qualified Codes: J44.1 - Chronic obstructive pulmonary disease with (acute) exacerbation Sulma Macias Jan 25, 2018 11:21
[2018-01-25] MEDS: cefTRIAXone INJ 2,000 MG in SODIUM CHLORIDE 0.9% INJ 100 ML IV SCH (13:17)
[2018-01-25] MEDS: AZITHROMYCIN INJ 500 MG in SODIUM CHLOR 0.9% 250 ML INJ 250 ML IV SCH (14:30)
[2018-01-25] MEDS: ENOXAPARIN SODIUM 40 MG/0.4 ML SYRINGE SQ SCH (17:08)
--- NOTE | 2018-01-25 20:04 | HHI.PR ---
Subjective Remarks 73 YOWM with COPD,Pn Pl eff Breathing better CP improved Denies sob Chest tube draining Denies sob Objective Vital Signs Vital Signs Date Time Temp Pulse Resp B/P (MAP) Pulse Ox O2 Delivery O2 Flow Rate FiO2 01/25/18 16:07 97.6 56 17 176/86 (116) 97 01/25/18 16:00 50 01/25/18 14:25 97 Nasal Cannula 2.00 01/25/18 12:07 97.2 54 17 182/86 (118) 97 01/25/18 12:00 46 01/25/18 09:38 Nasal Cannula 2.00 Humidified 01/25/18 08:07 97.4 49 17 190/88 (122) 97 01/25/18 08:00 46 01/25/18 04:00 50 01/25/18 04:00 97.7 54 17 190/83 (118) 98 01/25/18 04:00 Nasal Cannula 2.00 Humidified 01/25/18 00:00 97.2 52 17 194/86 (122) 98 01/25/18 00:00 50 01/25/18 00:00 Nasal Cannula 2.00 Humidified 01/24/18 22:00 Nasal Cannula 2.00 Humidified 01/24/18 20:43 99 Nasal Cannula 1.00 I/O 01/24/18 01/24/18 01/24/18 01/25/18 01/25/18 01/25/18 06:59 14:59 22:59 06:59 14:59 22:59 Intake Total 1000 ml 830 ml 1548 ml 380 ml Output Total 1170 ml 650 ml 1110 ml 1300 ml Balance -1170 ml 1000 ml 180 ml 438 ml -920 ml Intake Oral 480 ml 380 ml IV Total 1000 ml 350 ml 1548 ml Output Urine Total 1100 ml 600 ml 900 ml 1300 ml Chest Tube Drainage Total 70 ml 50 ml 210 ml # Bowel Movements 3 1 0 Result Diagram: 01/21/1836 01/21/18 05 Objective Remarks GENERAL: Elderly male, NAD SKIN: Warm and dry. HEAD: Normocephalic. EYES: No scleral icterus. No injection or drainage. NECK: Supple, trachea midline. No JVD or lymphadenopathy. CARDIOVASCULAR: Regular rate and rhythm without murmurs, gallops, or rubs. RESPIRATORY: Breath sounds equal bilaterally. No accessory muscle use. Decreased BS left base GASTROINTESTINAL: Abdomen soft, non-tender, nondistended. MUSCULOSKELETAL: No cyanosis, or edema. BACK: Nontender without obvious deformity. No CVA tenderness. A/P Assessment and Plan IMPRESSION: 1. Left lung pneumonia. 2. Pleural effusion, possible parapneumonic pleural effusion. 3. Chronic obstructive pulmonary disease. 4. Nicotine use. 5. Alcohol use. 6. Hypertension. 7. Left PTX, s/p Chest tube PLAN: Chest tube to Suction Cont Abx Aerosol nebs Chest tube management per radiology. Supplement 02 to keep sat >90% CXR in AM Jose Giron MD Jan 25, 2018 20:04
[2018-01-25] MEDS: TAMSULOSIN HCL 0.4 MG CAP PO SCH (20:13)
[2018-01-25] MEDS: traZODone HCL 100 MG TAB PO SCH (20:13)
[2018-01-26] VITALS (8 sets, daily range): BP systolic 122–209; BP diastolic 60–98; PULSE 48–67; RESP 18–20; TEMP 97.9–98.1; O2SAT 92–98
[2018-01-26] MEDS: cloNIDine HCL 0.1 MG TAB PO PRN ×3 (00:01→12:44)
[2018-01-26] MEDS: DILTIAZEM HCL 30 MG TAB PO SCH (00:01)
[2018-01-26] MEDS: ACETAMINOPHEN/HYDROcodone 325 MG/5 MG TAB PO PRN ×4 (02:54→16:58)
--- NOTE | 2018-01-26 05:44 | RADRPT ---
EXAM DATE: 01/26/2018 5:40 AM EDT AGE/SEX: 73 years / Male INDICATIONS: Short of breath, evaluate pulmonary effusion, evaluate chest tube on left side CLINICAL DATA: This is the patient's subsequent encounter. Patient reports that signs and symptoms h ave been present for 1 week and indicates a pain score of 6/10. MEDICAL/SURGICAL HISTORY: Chronic obstructive pulmonary disease. Hypertension. Renal cell car cinoma. pneumothorax . partial nephrectomychest tube COMPARISON: [facility] – [place], CHEST EXPIRATION ONLY, 01/20/2018. . FINDINGS: Left-sided pigtail chest catheter remains in place. Small left pleural effusion and left lower lobe c onsolidation versus atelectasis again seen. No evidence of pneumothorax. Mild patchy opacity right flex ng base again seen. CONCLUSION: 1. Left-sided chest tube remains place. No evidence of pneumothorax. 2. Left lower lobe consolidation versus atelectasis again seen. Electronically signed by: Jose Alfredo Delgadillo MD 01/26/2018 5:43 AM EDT
[2018-01-26] MEDS: ACYCLOVIR 800 MG TAB PO SCH ×5 (05:58→20:33)
[2018-01-26] MEDS: FINASTERIDE 5 MG TAB PO SCH (08:03)
[2018-01-26] MEDS: DOCUSATE SODIUM 50 MG/SENNA 8.6 MG TAB PO SCH ×2 (08:03→20:33)
[2018-01-26] MEDS: OXYBUTYNIN CHLORIDE 5 MG TAB PO SCH ×2 (08:03→20:33)
[2018-01-26] MEDS: amLODIPine BESYLATE 5 MG TAB PO SCH (08:04)
[2018-01-26] MEDS: DOXAZOSIN MESYLATE 4 MG TAB PO SCH (08:04)
[2018-01-26] MEDS: LISINOPRIL 20 MG TAB PO SCH ×2 (08:05→20:33)
[2018-01-26] MEDS: SODIUM CHLORIDE 0.9% FLUSH 10 ML FLUSH IV FLUSH SCH ×2 (08:05→20:35)
[2018-01-26] MEDS: CYANOCOBALAMIN 1,000 MCG TAB PO SCH (08:05)
[2018-01-26] MEDS: FLUTICASONE 200 MCG/VILANTEROL 25 MCG INHALER INH SCH (08:09)
[2018-01-26 08:33] LABS: AUTOMATED NEUTROPHIL # 5.1 TH/MM3 (1.8-7.7); BASOPHIL # 0.1 TH/MM3 (0-0.2); EOSINOPHIL # 0.4 TH/MM3 (0-0.4); EOSINOPHIL % 4.6 % (0.0-4.0); HEMATOCRIT 34.7 % (39.0-51.0); HEMOGLOBIN 11.6 GM/DL (13.0-17.0); LYMPH % 24.8 % (9.0-44.0); MEAN CELL VOLUME 95.1 FL (80.0-100.0); MEAN CORPUSCULAR HEMOGLOBIN 31.8 PG (27.0-34.0); MEAN CORPUSCULAR HGB CONC 33.5 % (32.0-36.0); MEAN PLATELET VOLUME 9.2 FL (7.0-11.0); MONOCYTE # 0.5 TH/MM3 (0-0.9); NEUT % 63.6 % (16.0-70.0); PLATELET COUNT 238 TH/MM3 (150-450); RED BLOOD COUNT 3.65 MIL/MM3 (4.50-5.90); RED CELL DISTRIBUTION WIDTH 14.9 % (11.6-17.2); WHITE BLOOD COUNT 8.1 TH/MM3 (4.0-11.0)
[2018-01-26 08:58] LABS: BICARBONATE 23.6 MEQ/L (21.0-32.0); CALCIUM 8.2 MG/DL (8.5-10.1); CREATININE 1.17 MG/DL (0.60-1.30)
--- NOTE | 2018-01-26 10:36 | HHI.PR ---
Subjective Remarks No complaints this am, slept well No CP, SOB BP still elevated Objective Vital Signs Date Time Temp Pulse Resp B/P (MAP) Pulse Ox O2 Delivery O2 Flow Rate FiO2 01/26/18 08:00 65 01/26/18 07:03 Nasal Cannula 2.00 01/26/18 04:00 48 01/26/18 04:00 Nasal Cannula 2.00 01/26/18 04:00 98.0 51 18 205/89 (127) 97 01/26/18 00:00 98.1 64 18 197/85 (122) 97 01/26/18 00:00 50 01/26/18 00:00 Nasal Cannula 2.00 01/25/18 20:00 Nasal Cannula 2.00 01/25/18 20:00 97.9 65 18 161/75 (103) 97 01/25/18 20:00 58 01/25/18 16:07 97.6 56 17 176/86 (116) 97 01/25/18 16:00 50 01/25/18 14:25 97 Nasal Cannula 2.00 01/25/18 12:07 97.2 54 17 182/86 (118) 97 01/25/18 12:00 46 I/O 01/25/18 01/25/18 01/25/18 01/26/18 01/26/18 01/26/18 07:00 15:00 23:00 07:00 15:00 23:00 Intake Total 1548 ml 380 ml 240 ml Output Total 1110 ml 1300 ml 2200 ml Balance 438 ml -920 ml -1960 ml Intake Oral 380 ml 240 ml IV Total 1548 ml Output Urine Total 900 ml 1300 ml 2000 ml Chest Tube Drainage Total 210 ml 200 ml # Bowel Movements 0 0 Result Diagram: 01/26/18 0755 01/26/18 0755 Imaging Last 72 hours Impressions Chest X-Ray 01/26/18 0600 Signed Impressions: CONCLUSION: 1. Left-sided chest tube remains place. No evidence of pneumothorax. 2. Left lower lobe consolidation versus atelectasis again seen. Procedures 01/18/18- Thoracentesis Left 450cc removed 01/20/18- L Chest tube placed Objective Remarks GENERAL:Well-developed patient, in no apparent distress. SKIN: . Warm and dry, dressing to left chest d/i, rash t left buttock EYES: Pupils equal round and reactive. Extraocular motions intact. No scleral icterus. No injection or drainage. HEENT: Unremarkable NECK: Trachea midline. No JVD CARDIOVASCULAR: Regular rate and rhythm without murmurs, gallops, or rubs. RESPIRATORY: BS equal, diminished at base, scattered exp wheezes GASTROINTESTINAL: Abdomen soft, non-tender, nondistended. MUSCULOSKELETAL: Extremities without clubbing, cyanosis, or edema. Negative Homans sign bilaterally. NEUROLOGICAL: Awake and alert. Normal speech. Medications and IVs Current Medications Medications (Trade) Dose Ordered Sig/Nayeli Route Start Time Stop Time Status Last Admin (NS Flush) 2 ml UNSCH PRN IV FLUSH 01/16/18 15:00 (NS Flush) 2 ml BID IV FLUSH 01/16/18 21:00 01/26/18 08:05 (Tylenol) 650 mg Q4H PRN PO 01/16/18 15:00 01/16/18 20:57 (Ambien) 5 mg HS PRN PO 01/16/18 15:00 01/24/18 23:00 (Lovenox Inj) 40 mg Q24H SQ 01/16/18 16:00 01/25/18 17:08 (Narcan Inj) 0.4 mg UNSCH PRN IV PUSH 01/16/18 15:00 (Elvie-Colace) 1 tab BID PO 01/16/18 21:00 01/26/18 08:03 (Milk Of Magnesia Liq) 30 ml Q12H PRN PO 01/16/18 15:00 01/23/18 09:18 (Senokot) 17.2 mg Q12H PRN PO 01/16/18 15:00 (Dulcolax Supp) 10 mg DAILY PRN RECTAL 01/16/18 15:00 01/23/18 21:40 (Lactulose Liq) 30 ml DAILY PRN PO 01/16/18 15:00 01/23/18 19:18 Azithromycin 500 mg/Sodium Chloride 250 ml @ 250 mls/hr Q24H IV 01/17/18 14:00 01/25/18 14:30 Ceftriaxone Sodium 2000 mg/ Sodium Chloride 100 ml @ 200 mls/hr Q24H IV 01/17/18 14:00 01/25/18 13:17 (Vitamin B12) 5,000 mcg DAILY PO 01/17/18 09:00 01/26/18 08:05 (Proscar) 5 mg DAILY PO 01/17/18 09:00 01/26/18 08:03 (Breo Ellipta 200-25 Inh) 1 puff DAILY INH 01/17/18 09:00 01/26/18 08:09 (Ditropan) 5 mg Q12HR PO 01/16/18 21:00 01/26/18 08:03 (Flomax) 0.4 mg HS PO 01/16/18 21:00 01/25/18 20:13 Patient Own Medication PT OWN MED: (Methylcellulose Pow... DAILY PO 01/17/18 09:00 Future Hold (Desyrel) 200 mg HS PO 01/16/18 21:00 01/25/18 20:13 (Cardura) 12 mg DAILY PO 01/18/18 09:00 01/26/18 08:04 ([place] 5-325 Mg) 1 tab Q4H PRN PO 01/17/18 14:45 01/25/18 22:17 ([place] 5-325 Mg) 2 tab Q4H PRN PO 01/17/18 14:45 01/26/18 08:05 (Catapres) 0.1 mg Q6H PRN PO 01/19/18 11:15 01/26/18 05:58 (Zovirax) 800 mg 5 TIMES A DAY PO 01/20/18 18:00 01/27/18 17:59 01/26/18 08:03 (Mycostatin Powder) 1 applic DAILY PRN TOPICAL 01/20/18 16:30 01/21/18 23:34 (Catapres-Tts 0.2 Mg Patch.7d) 1 patch Q7D T-DERMAL 01/22/18 10:00 01/22/18 10:26 (Prinivil) 30 mg Q12HR PO 01/24/18 21:00 01/26/18 08:05 (Norvasc) 5 mg DAILY PO 01/26/18 09:00 01/26/18 08:04 Assessment and Plan Problem List: (1) Pleural effusion on left ICD Codes: J90 - Pleural effusion, not elsewhere classified (2) Left lower lobe pneumonia ICD Codes: J18.1 - Lobar pneumonia, unspecified organism Status: Acute (3) COPD (chronic obstructive pulmonary disease) ICD Codes: J44.9 - Chronic obstructive pulmonary disease, unspecified Status: Acute (4) Hypertension ICD Codes: I10 - Essential (primary) hypertension Status: Chronic Assessment and Plan 01/19/18- Thoracentesis yesterday with 450 cc taken off. Denies SOB, B/P elevated running systolic 180's. Lisinopril increased to 40 mg daily PRN clonidine added for systolic greater than 160 or diastolic greater than 90 01/20/18- No complaints thia am, Chest tube placed yesterday for L pneumothorax. Report mild discomfort. Pulmonary following. BP better this am. 01/21/18- Seen this am, denies any CP, does have tenderness around Chest tube site. Followed by Pulmonary, BC negative x 4 days, AFB pleural pending, on Airborne precautions. Cont with bronchodilators, IV Rocephin azithromycin. b/p still running high, Cardizem added. 01/22/18- B/P running high last documented . he is on multiple agents. Clonidine 0.2mg patch added. Chest tube to sx, Afebrile, Pleural fluid AFB and Fungal pending. contact precautions for questionable shingles. NO BM x 5 days MOM today 01/25/18 Still having high B/P he is on multiple agents. HR bradycardia,in the 40 -50. Will reconsult cardiology for assistance. 01/26/18- Reports feeling good. No Headache, CP or SOB despite elevated BP.Cardiac reconsulted for recommendations. . Chest Tube still in place to left chest , pulmonary following. Will order PT to incrase activity referral for [place] when stable Problem Qualifiers (1) Left lower lobe pneumonia: Qualified Codes: J18.1 - Lobar pneumonia, unspecified organism (2) COPD (chronic obstructive pulmonary disease): Qualified Codes: J44.1 - Chronic obstructive pulmonary disease with (acute) exacerbation Sulma Macias Jan 26, 2018 10:36
[2018-01-26] MEDS: cefTRIAXone INJ 2,000 MG in SODIUM CHLORIDE 0.9% INJ 100 ML IV SCH (12:45)
[2018-01-26] MEDS: AZITHROMYCIN INJ 500 MG in SODIUM CHLOR 0.9% 250 ML INJ 250 ML IV SCH (13:23)
[2018-01-26] MEDS: ENOXAPARIN SODIUM 40 MG/0.4 ML SYRINGE SQ SCH (15:43)
--- NOTE | 2018-01-26 18:16 | PD.CARD.PN ---
Subjective Subjective Remarks c/o pain by chest tube Objective Medications Current Medications Medications (Trade) Dose Ordered Sig/Nayeli Route Start Time Stop Time Status Last Admin (NS Flush) 2 ml UNSCH PRN IV FLUSH 01/16/18 15:00 (NS Flush) 2 ml BID IV FLUSH 01/16/18 21:00 01/26/18 08:05 (Tylenol) 650 mg Q4H PRN PO 01/16/18 15:00 01/16/18 20:57 (Ambien) 5 mg HS PRN PO 01/16/18 15:00 01/24/18 23:00 (Lovenox Inj) 40 mg Q24H SQ 01/16/18 16:00 01/26/18 15:43 (Narcan Inj) 0.4 mg UNSCH PRN IV PUSH 01/16/18 15:00 (Elvie-Colace) 1 tab BID PO 01/16/18 21:00 01/26/18 08:03 (Milk Of Magnesia Liq) 30 ml Q12H PRN PO 01/16/18 15:00 01/23/18 09:18 (Senokot) 17.2 mg Q12H PRN PO 01/16/18 15:00 (Dulcolax Supp) 10 mg DAILY PRN RECTAL 01/16/18 15:00 01/23/18 21:40 (Lactulose Liq) 30 ml DAILY PRN PO 01/16/18 15:00 01/23/18 19:18 Azithromycin 500 mg/Sodium Chloride 250 ml @ 250 mls/hr Q24H IV 01/17/18 14:00 01/26/18 13:23 Ceftriaxone Sodium 2000 mg/ Sodium Chloride 100 ml @ 200 mls/hr Q24H IV 01/17/18 14:00 01/26/18 12:45 (Vitamin B12) 5,000 mcg DAILY PO 01/17/18 09:00 01/26/18 08:05 (Proscar) 5 mg DAILY PO 01/17/18 09:00 01/26/18 08:03 (Breo Ellipta 200-25 Inh) 1 puff DAILY INH 01/17/18 09:00 01/26/18 08:09 (Ditropan) 5 mg Q12HR PO 01/16/18 21:00 01/26/18 08:03 (Flomax) 0.4 mg HS PO 01/16/18 21:00 01/25/18 20:13 Patient Own Medication PT OWN MED: (Methylcellulose Pow... DAILY PO 01/17/18 09:00 Future Hold (Desyrel) 200 mg HS PO 01/16/18 21:00 01/25/18 20:13 ([place] 5-325 Mg) 1 tab Q4H PRN PO 01/17/18 14:45 01/25/18 22:17 ([place] 5-325 Mg) 2 tab Q4H PRN PO 01/17/18 14:45 01/26/18 16:58 (Catapres) 0.1 mg Q6H PRN PO 01/19/18 11:15 01/26/18 12:44 (Zovirax) 800 mg 5 TIMES A DAY PO 01/20/18 18:00 01/27/18 17:59 01/26/18 16:58 (Mycostatin Powder) 1 applic DAILY PRN TOPICAL 01/20/18 16:30 01/21/18 23:34 (Catap[place]-Tts 0.2 Mg Patch.7d) 1 patch Q7D T-DERMAL 01/22/18 10:00 01/22/18 10:26 (Prinivil) 30 mg Q12HR PO 01/24/18 21:00 01/26/18 08:05 (Norvasc) 5 mg DAILY PO 01/26/18 09:00 01/26/18 08:04 Vital Signs / I&O Vital Signs Date Time Temp Pulse Resp B/P (MAP) Pulse Ox O2 Delivery O2 Flow Rate FiO2 01/26/18 16:00 49 01/26/18 12:00 67 01/26/18 11:40 97 Nasal Cannula 2.00 01/26/18 08:00 65 01/26/18 07:03 Nasal Cannula 2.00 01/26/18 04:00 48 01/26/18 04:00 Nasal Cannula 2.00 01/26/18 04:00 98.0 51 18 205/89 (127) 97 01/26/18 00:00 98.1 64 18 197/85 (122) 97 01/26/18 00:00 50 01/26/18 00:00 Nasal Cannula 2.00 01/25/18 20:00 Nasal Cannula 2.00 01/25/18 20:00 97.9 65 18 161/75 (103) 97 01/25/18 20:00 58 I/O 01/25/18 01/25/18 01/25/18 01/26/18 01/26/18 01/26/18 07:00 15:00 23:00 07:00 15:00 23:00 Intake Total 1548 ml 380 ml 240 ml 100 ml Output Total 1110 ml 1300 ml 2200 ml 50 ml Balance 438 ml -920 ml -1960 ml 100 ml -50 ml Intake Oral 380 ml 240 ml IV Total 1548 ml 100 ml Output Urine Total 900 ml 1300 ml 2000 ml Chest Tube Drainage Total 210 ml 200 ml 50 ml # Bowel Movements 0 0 Physical Exam very orthostatic earlier awake, alert Chest decreased BS bases CV S1S2 mild paul Ext no edema Laboratory Laboratory Tests Test 01/26/18 07:55 White Blood Count 8.1 TH/MM3 Red Blood Count 3.65 MIL/MM3 Hemoglobin 11.6 GM/DL Hematocrit 34.7 % Mean Corpuscular Volume 95.1 FL Mean Corpuscular Hemoglobin 31.8 PG Mean Corpuscular Hemoglobin Concent 33.5 % Red Cell Distribution Width 14.9 % Platelet Count 238 TH/MM3 Mean Platelet Volume 9.2 FL Neutrophils (%) (Auto) 63.6 % Lymphocytes (%) (Auto) 24.8 % Monocytes (%) (Auto) 6.0 % Eosinophils (%) (Auto) 4.6 % Basophils (%) (Auto) 1.0 % Neutrophils # (Auto) 5.1 TH/MM3 Lymphocytes # (Auto) 2.0 TH/MM3 Monocytes # (Auto) 0.5 TH/MM3 Eosinophils # (Auto) 0.4 TH/MM3 Basophils # (Auto) 0.1 TH/MM3 CBC Comment DIFF FINAL Differential Comment Blood Urea Nitrogen 14 MG/DL Creatinine 1.17 MG/DL Random Glucose 83 MG/DL Calcium Level 8.2 MG/DL Sodium Level 141 MEQ/L Potassium Level 4.1 MEQ/L Chloride Level 107 MEQ/L Carbon Dioxide Level 23.6 MEQ/L Anion Gap 10 MEQ/L Estimat Glomerular Filtration Rate 61 ML/MIN Imaging Last 24 hours Impressions Chest X-Ray 01/26/18 0600 Signed Impressions: CONCLUSION: 1. Left-sided chest tube remains place. No evidence of pneumothorax. 2. Left lower lobe consolidation versus atelectasis again seen. Assessment and Plan Problem List: (1) Orthostasis ICD Codes: I95.1 - Orthostatic hypotension Plan: stop Cardura (2) HTN (hypertension) ICD Codes: I10 - Essential (primary) hypertension Status: Chronic Plan: added amlodipine, continue ACI Assessment and Plan I will be OOT until Mon. Please call my partners at [facility] prn Problem Qualifiers (1) HTN (hypertension): Qualified Codes: I10 - Essential (primary) hypertension Nithin Guzman MD Jan 26, 2018 18:16
--- NOTE | 2018-01-26 20:09 | HHI.PR ---
Subjective Remarks 73 YOWM with COPD,Pn Pl eff Breathing better CP improved Denies sob Chest tube draining Denies sob No new complaint Objective Vital Signs Vital Signs Date Time Temp Pulse Resp B/P (MAP) Pulse Ox O2 Delivery O2 Flow Rate FiO2 01/26/18 16:00 98.1 50 20 181/82 (115) 96 01/26/18 16:00 49 01/26/18 16:00 58 170/79 (109) 01/26/18 12:00 67 01/26/18 12:00 98.1 56 20 209/98 (135) 97 01/26/18 11:40 97 Nasal Cannula 2.00 01/26/18 08:00 65 01/26/18 08:00 97.9 62 20 122/60 (80) 92 01/26/18 07:03 Nasal Cannula 2.00 01/26/18 04:00 48 01/26/18 04:00 Nasal Cannula 2.00 01/26/18 04:00 98.0 51 18 205/89 (127) 97 01/26/18 00:00 98.1 64 18 197/85 (122) 97 01/26/18 00:00 50 01/26/18 00:00 Nasal Cannula 2.00 I/O 01/25/18 01/25/18 01/25/18 01/26/18 01/26/18 01/26/18 06:59 14:59 22:59 06:59 14:59 22:59 Intake Total 1548 ml 380 ml 240 ml 100 ml 480 ml Output Total 1110 ml 1300 ml 2200 ml 1000 ml Balance 438 ml -920 ml -1960 ml 100 ml -520 ml Intake Oral 380 ml 240 ml 480 ml IV Total 1548 ml 100 ml Output Urine Total 900 ml 1300 ml 2000 ml 950 ml Chest Tube Drainage Total 210 ml 200 ml 50 ml # Bowel Movements 0 0 0 Result Diagram: 01/26/18 0755 01/26/18 075 Objective Remarks GENERAL: Elderly male, NAD SKIN: Warm and dry. HEAD: Normocephalic. EYES: No scleral icterus. No injection or drainage. NECK: Supple, trachea midline. No JVD or lymphadenopathy. CARDIOVASCULAR: Regular rate and rhythm without murmurs, gallops, or rubs. RESPIRATORY: Breath sounds equal bilaterally. No accessory muscle use. Decreased BS left base GASTROINTESTINAL: Abdomen soft, non-tender, nondistended. MUSCULOSKELETAL: No cyanosis, or edema. BACK: Nontender without obvious deformity. No CVA tenderness. A/P Assessment and Plan IMPRESSION: 1. Left lung pneumonia. 2. Pleural effusion, possible parapneumonic pleural effusion. 3. Chronic obstructive pulmonary disease. 4. Nicotine use. 5. Alcohol use. 6. Hypertension. 7. Left PTX, s/p Chest tube PLAN: Chest tube to Suction Cont Abx Aerosol nebs Chest tube management per radiology. Supplement 02 to keep sat >90% Prob dc chest tube per Jose Manuel MD Jan 26, 2018 20:09
[2018-01-26] MEDS: TAMSULOSIN HCL 0.4 MG CAP PO SCH (20:33)
[2018-01-26] MEDS: traZODone HCL 100 MG TAB PO SCH (20:33)
[2018-01-27] VITALS (8 sets, daily range): BP systolic 125–206; BP diastolic 65–89; PULSE 47–87; RESP 16–20; TEMP 97.9–98.5; O2SAT 92–97
[2018-01-27] MEDS: ACETAMINOPHEN/HYDROcodone 325 MG/5 MG TAB PO PRN ×5 (02:43→23:06)
[2018-01-27] MEDS: cloNIDine HCL 0.1 MG TAB PO PRN ×2 (06:01→20:54)
[2018-01-27] MEDS: ACYCLOVIR 800 MG TAB PO SCH ×3 (06:01→18:17)
--- NOTE | 2018-01-27 08:18 | HHI.PR ---
Subjective Remarks No complaints this am, No CP, OB Objective Vital Signs Date Time Temp Pulse Resp B/P (MAP) Pulse Ox O2 Delivery O2 Flow Rate FiO2 01/27/18 06:03 190/78 (115) 01/27/18 04:00 97.9 60 20 206/82 (123) 95 01/27/18 04:00 Nasal Cannula 2.00 01/27/18 04:00 51 01/27/18 00:00 Nasal Cannula 2.00 01/27/18 00:00 97.9 59 20 205/82 (123) 95 01/27/18 00:00 47 01/26/18 21:54 98 Nasal Cannula 2.00 01/26/18 20:00 Nasal Cannula 2.00 01/26/18 20:00 98.0 51 20 204/93 (130) 97 01/26/18 20:00 49 01/26/18 16:00 98.1 50 20 181/82 (115) 96 01/26/18 16:00 49 01/26/18 16:00 58 170/79 (109) 01/26/18 12:00 67 01/26/18 12:00 98.1 56 20 209/98 (135) 97 01/26/18 11:40 97 Nasal Cannula 2.00 I/O 01/26/18 01/26/18 01/26/18 01/27/18 01/27/18 01/27/18 07:00 15:00 23:00 07:00 15:00 23:00 Intake Total 240 ml 100 ml 480 ml 120 ml Output Total 2200 ml 1000 ml 800 ml Balance -1960 ml 100 ml -520 ml -680 ml Intake Oral 240 ml 480 ml 120 ml IV Total 100 ml Output Urine Total 2000 ml 950 ml 800 ml Chest Tube Drainage Total 200 ml 50 ml # Bowel Movements 0 0 0 Result Diagram: 01/26/18 0755 01/26/18 0755 Imaging Last 72 hours Impressions Chest X-Ray 01/26/18 0600 Signed Impressions: CONCLUSION: 1. Left-sided chest tube remains place. No evidence of pneumothorax. 2. Left lower lobe consolidation versus atelectasis again seen. Procedures 01/18/18- Thoracentesis Left 450cc removed 01/20/18- L Chest tube placed Objective Remarks GENERAL:Well-developed patient, in no apparent distress. SKIN: . Warm and dry, dressing to left chest d/i EYES: Pupils equal round and reactive. Extraocular motions intact. No scleral icterus. No injection or drainage. HEENT: Unremarkable NECK: Trachea midline. No JVD CARDIOVASCULAR: Regular rate and rhythm without murmurs, gallops, or rubs. RESPIRATORY: BS equal, diminished at base GASTROINTESTINAL: Abdomen soft, non-tender, nondistended. MUSCULOSKELETAL: Extremities without clubbing, cyanosis, or edema. Negative Homans sign bilaterally. NEUROLOGICAL: Awake and alert. Normal speech. Medications and IVs Current Medications Medications (Trade) Dose Ordered Sig/Nayeli Route Start Time Stop Time Status Last Admin (NS Flush) 2 ml UNSCH PRN IV FLUSH 01/16/18 15:00 (NS Flush) 2 ml BID IV FLUSH 01/16/18 21:00 01/26/18 20:35 (Tylenol) 650 mg Q4H PRN PO 01/16/18 15:00 01/16/18 20:57 (Ambien) 5 mg HS PRN PO 01/16/18 15:00 01/24/18 23:00 (Lovenox Inj) 40 mg Q24H SQ 01/16/18 16:00 01/26/18 15:43 (Narcan Inj) 0.4 mg UNSCH PRN IV PUSH 01/16/18 15:00 (Elvie-Colace) 1 tab BID PO 01/16/18 21:00 01/26/18 20:33 (Milk Of Magnesia Liq) 30 ml Q12H PRN PO 01/16/18 15:00 01/23/18 09:18 (Senokot) 17.2 mg Q12H PRN PO 01/16/18 15:00 (Dulcolax Supp) 10 mg DAILY PRN RECTAL 01/16/18 15:00 01/23/18 21:40 (Lactulose Liq) 30 ml DAILY PRN PO 01/16/18 15:00 01/23/18 19:18 Azithromycin 500 mg/Sodium Chloride 250 ml @ 250 mls/hr Q24H IV 01/17/18 14:00 01/26/18 13:23 Ceftriaxone Sodium 2000 mg/ Sodium Chloride 100 ml @ 200 mls/hr Q24H IV 01/17/18 14:00 01/26/18 12:45 (Vitamin B12) 5,000 mcg DAILY PO 01/17/18 09:00 01/26/18 08:05 (Proscar) 5 mg DAILY PO 01/17/18 09:00 01/26/18 08:03 (Breo Ellipta 200-25 Inh) 1 puff DAILY INH 01/17/18 09:00 01/26/18 08:09 (Ditropan) 5 mg Q12HR PO 01/16/18 21:00 01/26/18 20:33 (Flomax) 0.4 mg HS PO 01/16/18 21:00 01/26/18 20:33 Patient Own Medication PT OWN MED: (Methylcellulose Pow... DAILY PO 01/17/18 09:00 Future Hold (Desyrel) 200 mg HS PO 01/16/18 21:00 01/26/18 20:33 ([place] 5-325 Mg) 1 tab Q4H PRN PO 01/17/18 14:45 01/25/18 22:17 ([place] 5-325 Mg) 2 tab Q4H PRN PO 01/17/18 14:45 01/27/18 02:43 (Catapres) 0.1 mg Q6H PRN PO 01/19/18 11:15 01/27/18 06:01 (Zovirax) 800 mg 5 TIMES A DAY PO 01/20/18 18:00 01/27/18 17:59 01/27/18 06:01 (Mycostatin Powder) 1 applic DAILY PRN TOPICAL 01/20/18 16:30 01/21/18 23:34 (Catapres-Tts 0.2 Mg Patch.7d) 1 patch Q7D T-DERMAL 01/22/18 10:00 01/22/18 10:26 (Prinivil) 30 mg Q12HR PO 01/24/18 21:00 01/26/18 20:33 (Norvasc) 5 mg DAILY PO 01/26/18 09:00 01/26/18 08:04 Assessment and Plan Problem List: (1) Pleural effusion on left ICD Codes: J90 - Pleural effusion, not elsewhere classified (2) Left lower lobe pneumonia ICD Codes: J18.1 - Lobar pneumonia, unspecified organism Status: Acute (3) COPD (chronic obstructive pulmonary disease) ICD Codes: J44.9 - Chronic obstructive pulmonary disease, unspecified Status: Acute (4) Hypertension ICD Codes: I10 - Essential (primary) hypertension Status: Chronic Assessment and Plan 01/19/18- Thoracentesis yesterday with 450 cc taken off. Denies SOB, B/P elevated running systolic 180's. Lisinopril increased to 40 mg daily PRN clonidine added for systolic greater than 160 or diastolic greater than 90 01/20/18- No complaints thia am, Chest tube placed yesterday for L pneumothorax. Report mild discomfort. Pulmonary following. BP better this am. 01/21/18- Seen this am, denies any CP, does have tenderness around Chest tube site. Followed by Pulmonary, BC negative x 4 days, AFB pleural pending, on Airborne precautions. Cont with bronchodilators, IV Rocephin azithromycin. b/p still running high, Cardizem added. 01/22/18- B/P running high last documented /. he is on multiple agents. Clonidine 0.2mg patch added. Chest tube to sx, Afebrile, Pleural fluid AFB and Fungal pending. contact precautions for questionable shingles. NO BM x 5 days MOM today 01/25/18 Still having high B/P he is on multiple agents. HR bradycardia,in the 40 -50. Will reconsult cardiology for assistance. 01/26/18- Reports feeling good. No Headache, CP or SOB despite elevated BP.Cardiac reconsulted for recommendations. . Chest Tube still in place to left chest , pulmonary following. Will order PT to incrase activity referral for [facility] when stable 01/27/18- NO complaints this am. Seen by cardiology for uncontrolled B/P. medications adjusted will cont to monitor. Per pulmonary notes Chest likely to be removed. Screened by [facility] not candidate will return to snf at [place]. Cont with bronchodilators, BC and Pleural fluid negative. Cont with PT activity Problem Qualifiers (1) Left lower lobe pneumonia: Qualified Codes: J18.1 - Lobar pneumonia, unspecified organism (2) COPD (chronic obstructive pulmonary disease): Qualified Codes: J44.1 - Chronic obstructive pulmonary disease with (acute) exacerbation Sulma Macias Jan 27, 2018 08:18
[2018-01-27] MEDS: OXYBUTYNIN CHLORIDE 5 MG TAB PO SCH ×2 (08:33→20:54)
[2018-01-27] MEDS: FINASTERIDE 5 MG TAB PO SCH (08:34)
[2018-01-27] MEDS: DOCUSATE SODIUM 50 MG/SENNA 8.6 MG TAB PO SCH ×2 (08:34→20:54)
[2018-01-27] MEDS: LISINOPRIL 20 MG TAB PO SCH ×2 (08:34→20:54)
[2018-01-27] MEDS: SODIUM CHLORIDE 0.9% FLUSH 10 ML FLUSH IV FLUSH SCH ×2 (08:35→20:55)
[2018-01-27] MEDS: CYANOCOBALAMIN 1,000 MCG TAB PO SCH (08:35)
[2018-01-27] MEDS: FLUTICASONE 200 MCG/VILANTEROL 25 MCG INHALER INH SCH (08:39)
[2018-01-27] MEDS: amLODIPine BESYLATE 5 MG TAB PO SCH (10:27)
[2018-01-27] MEDS: ENOXAPARIN SODIUM 40 MG/0.4 ML SYRINGE SQ SCH (16:00)
[2018-01-27] MEDS: LORazepam 0.5 MG TAB PO SCH ×2 (18:17→23:05)
[2018-01-27] MEDS: AZITHROMYCIN INJ 500 MG in SODIUM CHLOR 0.9% 250 ML INJ 250 ML IV SCH (18:18)
[2018-01-27] MEDS: cefTRIAXone INJ 2,000 MG in SODIUM CHLORIDE 0.9% INJ 100 ML IV SCH (18:35)
--- NOTE | 2018-01-27 20:49 | HHI.PR ---
Subjective Remarks 73 YOWM with COPD,Pn Pl eff Breathing better Denies sob Chest tube draining Denies sob BP runs high, has chest wall pain Chest tube drain 50 cc Objective Vital Signs Vital Signs Date Time Temp Pulse Resp B/P (MAP) Pulse Ox O2 Delivery O2 Flow Rate FiO2 01/27/18 16:00 54 01/27/18 16:00 98.1 56 19 198/87 (124) 97 01/27/18 12:00 98.5 54 18 171/89 (116) 97 01/27/18 11:28 92 Nasal Cannula 2.00 01/27/18 08:00 98.0 87 18 125/65 (85) 92 01/27/18 08:00 52 01/27/18 06:03 190/78 (115) 01/27/18 04:00 97.9 60 20 206/82 (123) 95 01/27/18 04:00 Nasal Cannula 2.00 01/27/18 04:00 51 01/27/18 00:00 Nasal Cannula 2.00 01/27/18 00:00 97.9 59 20 205/82 (123) 95 01/27/18 00:00 47 01/26/18 21:54 98 Nasal Cannula 2.00 I/O 01/26/18 01/26/18 01/26/18 01/27/18 01/27/18 01/27/18 07:00 15:00 23:00 07:00 15:00 23:00 Intake Total 240 ml 100 ml 480 ml 120 ml Output Total 2200 ml 1000 ml 800 ml Balance -1960 ml 100 ml -520 ml -680 ml Intake Oral 240 ml 480 ml 120 ml IV Total 100 ml Output Urine Total 2000 ml 950 ml 800 ml Chest Tube Drainage Total 200 ml 50 ml # Bowel Movements 0 0 0 Result Diagram: 01/26/18 0755 01/26/18 0755 Objective Remarks GENERAL: Elderly male, NAD SKIN: Warm and dry. HEAD: Normocephalic. EYES: No scleral icterus. No injection or drainage. NECK: Supple, trachea midline. No JVD or lymphadenopathy. CARDIOVASCULAR: Regular rate and rhythm without murmurs, gallops, or rubs. RESPIRATORY: Breath sounds equal bilaterally. No accessory muscle use. Decreased BS left base GASTROINTESTINAL: Abdomen soft, non-tender, nondistended. MUSCULOSKELETAL: No cyanosis, or edema. BACK: Nontender without obvious deformity. No CVA tenderness. A/P Assessment and Plan IMPRESSION: 1. Left lung pneumonia. 2. Pleural effusion, possible parapneumonic pleural effusion. 3. Chronic obstructive pulmonary disease. 4. Nicotine use. 5. Alcohol use. 6. Hypertension. 7. Left PTX, s/p Chest tube PLAN: Chest tube to Suction Cont Abx Aerosol nebs Chest tube management per radiology. Supplement 02 to keep sat >90% Prob dc chest tube per Jose Manuel MD Jan 27, 2018 20:49
[2018-01-27] MEDS: traZODone HCL 100 MG TAB PO SCH (20:54)
[2018-01-27] MEDS: TAMSULOSIN HCL 0.4 MG CAP PO SCH (20:54)
[2018-01-28] VITALS (10 sets, daily range): BP systolic 131–188; BP diastolic 67–92; PULSE 47–94; RESP 16–20; TEMP 97.4–98.3; O2SAT 95–98
[2018-01-28] MEDS: cloNIDine HCL 0.1 MG TAB PO PRN ×2 (03:09→18:05)
[2018-01-28] MEDS: ACETAMINOPHEN/HYDROcodone 325 MG/5 MG TAB PO PRN ×4 (03:09→19:55)
[2018-01-28] MEDS: LORazepam 0.5 MG TAB PO SCH ×3 (06:00→17:47)
[2018-01-28] MEDS: LISINOPRIL 20 MG TAB PO SCH ×2 (08:34→19:56)
[2018-01-28] MEDS: CYANOCOBALAMIN 1,000 MCG TAB PO SCH (08:34)
[2018-01-28] MEDS: DOCUSATE SODIUM 50 MG/SENNA 8.6 MG TAB PO SCH ×2 (08:34→19:55)
[2018-01-28] MEDS: FINASTERIDE 5 MG TAB PO SCH (08:35)
[2018-01-28] MEDS: OXYBUTYNIN CHLORIDE 5 MG TAB PO SCH ×2 (08:35→19:56)
[2018-01-28] MEDS: amLODIPine BESYLATE 5 MG TAB PO SCH (08:35)
[2018-01-28] MEDS: SODIUM CHLORIDE 0.9% FLUSH 10 ML FLUSH IV FLUSH SCH ×2 (08:37→19:56)
[2018-01-28] MEDS: FLUTICASONE 200 MCG/VILANTEROL 25 MCG INHALER INH SCH (08:38)
--- NOTE | 2018-01-28 08:50 | HHI.PR ---
Subjective Remarks No complaints this am, Little sleepy No CP, SOB Objective Vital Signs Date Time Temp Pulse Resp B/P (MAP) Pulse Ox O2 Delivery O2 Flow Rate FiO2 01/28/18 08:24 97.4 94 20 185/92 (123) 96 01/28/18 04:18 166/80 (108) 01/28/18 04:00 47 01/28/18 03:22 98.3 55 20 175/79 (111) 96 01/28/18 00:26 Nasal Cannula 2.00 Humidified 01/28/18 00:00 50 01/28/18 00:00 98.1 54 16 188/82 (117) 96 01/27/18 20:00 Nasal Cannula 2.00 Humidified 01/27/18 20:00 52 01/27/18 20:00 98.2 67 16 170/80 (110) 96 01/27/18 16:00 54 01/27/18 16:00 98.1 56 19 198/87 (124) 97 01/27/18 12:00 98.5 54 18 171/89 (116) 97 01/27/18 11:28 92 Nasal Cannula 2.00 I/O 01/27/18 01/27/18 01/27/18 01/28/18 01/28/18 01/28/18 07:00 15:00 23:00 07:00 15:00 23:00 Intake Total 120 ml 240 ml Output Total 800 ml 350 ml 0 ml Balance -680 ml -110 ml 0 ml Intake Oral 120 ml 240 ml Output Urine Total 800 ml 350 ml Chest Tube Drainage Total 0 ml # Bowel Movements 0 0 Result Diagram: 01/26/18 0755 01/26/18 0755 Imaging Last 72 hours Impressions Chest X-Ray 01/26/18 0600 Signed Impressions: CONCLUSION: 1. Left-sided chest tube remains place. No evidence of pneumothorax. 2. Left lower lobe consolidation versus atelectasis again seen. Procedures 01/18/18- Thoracentesis Left 450cc removed 01/20/18- L Chest tube placed Objective Remarks GENERAL:Well-developed patient, in no apparent distress. SKIN: . Warm and dry, dressing to left chest d/i EYES: Pupils equal round and reactive. Extraocular motions intact. No scleral icterus. No injection or drainage. HEENT: Unremarkable NECK: Trachea midline. No JVD CARDIOVASCULAR: Regular rate and rhythm without murmurs, gallops, or rubs. RESPIRATORY: BS equal, diminished at base GASTROINTESTINAL: Abdomen soft, non-tender, nondistended. MUSCULOSKELETAL: Extremities without clubbing, cyanosis, or edema. Negative Homans sign bilaterally. NEUROLOGICAL: Awake and alert. Normal speech. Medications and IVs Current Medications Medications (Trade) Dose Ordered Sig/Nayeli Route Start Time Stop Time Status Last Admin (NS Flush) 2 ml UNSCH PRN IV FLUSH 01/16/18 15:00 (NS Flush) 2 ml BID IV FLUSH 01/16/18 21:00 01/28/18 08:37 (Tylenol) 650 mg Q4H PRN PO 01/16/18 15:00 01/16/18 20:57 (Ambien) 5 mg HS PRN PO 01/16/18 15:00 01/24/18 23:00 (Lovenox Inj) 40 mg Q24H SQ 01/16/18 16:00 01/26/18 15:43 (Narcan Inj) 0.4 mg UNSCH PRN IV PUSH 01/16/18 15:00 (Elvie-Colace) 1 tab BID PO 01/16/18 21:00 01/28/18 08:34 (Milk Of Magnesia Liq) 30 ml Q12H PRN PO 01/16/18 15:00 01/23/18 09:18 (Senokot) 17.2 mg Q12H PRN PO 01/16/18 15:00 (Dulcolax Supp) 10 mg DAILY PRN RECTAL 01/16/18 15:00 01/23/18 21:40 (Lactulose Liq) 30 ml DAILY PRN PO 01/16/18 15:00 01/23/18 19:18 Azithromycin 500 mg/Sodium Chloride 250 ml @ 250 mls/hr Q24H IV 01/17/18 14:00 01/27/18 18:18 Ceftriaxone Sodium 2000 mg/ Sodium Chloride 100 ml @ 200 mls/hr Q24H IV 01/17/18 14:00 01/27/18 18:35 (Vitamin B12) 5,000 mcg DAILY PO 01/17/18 09:00 01/28/18 08:34 (Proscar) 5 mg DAILY PO 01/17/18 09:00 01/28/18 08:35 (Breo Ellipta 200-25 Inh) 1 puff DAILY INH 01/17/18 09:00 01/28/18 08:38 (Ditropan) 5 mg Q12HR PO 01/16/18 21:00 01/28/18 08:35 (Flomax) 0.4 mg HS PO 01/16/18 21:00 01/27/18 20:54 Patient Own Medication PT OWN MED: (Methylcellulose Pow... DAILY PO 01/17/18 09:00 Future Hold (Desyrel) 200 mg HS PO 01/16/18 21:00 01/27/18 20:54 ([place] 5-325 Mg) 1 tab Q4H PRN PO 01/17/18 14:45 01/25/18 22:17 ([place] 5-325 Mg) 2 tab Q4H PRN PO 01/17/18 14:45 01/28/18 08:34 (Catapres) 0.1 mg Q6H PRN PO 01/19/18 11:15 01/28/18 03:09 (Mycostatin Powder) 1 applic DAILY PRN TOPICAL 01/20/18 16:30 01/21/18 23:34 (Catapres-Tts 0.2 Mg Patch.7d) 1 patch Q7D T-DERMAL 01/22/18 10:00 01/22/18 10:26 (Prinivil) 30 mg Q12HR PO 01/24/18 21:00 01/28/18 08:34 (Norvasc) 5 mg DAILY PO 01/26/18 09:00 01/28/18 08:35 (Ativan) 0.5 mg Q6HR PO 01/27/18 18:00 01/28/18 06:00 Assessment and Plan Problem List: (1) Pleural effusion on left ICD Codes: J90 - Pleural effusion, not elsewhere classified (2) Left lower lobe pneumonia ICD Codes: J18.1 - Lobar pneumonia, unspecified organism Status: Acute (3) COPD (chronic obstructive pulmonary disease) ICD Codes: J44.9 - Chronic obstructive pulmonary disease, unspecified Status: Acute (4) Hypertension ICD Codes: I10 - Essential (primary) hypertension Status: Chronic Assessment and Plan 01/19/18- Thoracentesis yesterday with 450 cc taken off. Denies SOB, B/P elevated running systolic 180's. Lisinopril increased to 40 mg daily PRN clonidine added for systolic greater than 160 or diastolic greater than 90 01/20/18- No complaints thia am, Chest tube placed yesterday for L pneumothorax. Report mild discomfort. Pulmonary following. BP better this am. 01/21/18- Seen this am, denies any CP, does have tenderness around Chest tube site. Followed by Pulmonary, BC negative x 4 days, AFB pleural pending, on Airborne precautions. Cont with bronchodilators, IV Rocephin azithromycin. b/p still running high, Cardizem added. 01/22/18- B/P running high last documented /. he is on multiple agents. Clonidine 0.2mg patch added. Chest tube to sx, Afebrile, Pleural fluid AFB and Fungal pending. contact precautions for questionable shingles. NO BM x 5 days MOM today 01/25/18 Still having high B/P he is on multiple agents. HR bradycardia,in the 40 -50. Will reconsult cardiology for assistance. 01/26/18- Reports feeling good. No Headache, CP or SOB despite elevated BP.Cardiac reconsulted for recommendations. . Chest Tube still in place to left chest , pulmonary following. Will order PT to incrase activity referral for [facility] when stable 01/27/18- NO complaints this am. Seen by cardiology for uncontrolled B/P. medications adjusted will cont to monitor. Per pulmonary notes Chest likely to be removed. Screened by [facility] not candidate [place] return to sn[place]. Cont with bronchodilators, BC and Pleural fluid negative. Cont with PT activity 01/28/18- No complaints this am, CP scheduled to be removed today. Ativan added yesterday to for anxiety and to help with better Bp control. Cont with bronchodilators, Pt activity. Accepted at [facility] as long as BP <[address] Likely to rehab in next 1-2 days. Problem Qualifiers (1) Left lower lobe pneumonia: Qualified Codes: J18.1 - Lobar pneumonia, unspecified organism (2) COPD (chronic obstructive pulmonary disease): Qualified Codes: J44.1 - Chronic obstructive pulmonary disease with (acute) exacerbation Sulma Macias Jan 28, 2018 08:50
[2018-01-28] MEDS: cefTRIAXone INJ 2,000 MG in SODIUM CHLORIDE 0.9% INJ 100 ML IV SCH (13:11)
[2018-01-28] MEDS: AZITHROMYCIN INJ 500 MG in SODIUM CHLOR 0.9% 250 ML INJ 250 ML IV SCH (14:20)
[2018-01-28] MEDS: ENOXAPARIN SODIUM 40 MG/0.4 ML SYRINGE SQ SCH (15:37)
--- NOTE | 2018-01-28 16:06 | HHI.PR ---
Subjective Remarks 73 YOWM with COPD,Pn Pl eff Breathing better Denies sob Chest tube draining Denies sob Chest tube removed Objective Vital Signs Vital Signs Date Time Temp Pulse Resp B/P (MAP) Pulse Ox O2 Delivery O2 Flow Rate FiO2 01/28/18 12:00 97.5 53 20 131/67 (88) 98 01/28/18 11:44 48 01/28/18 08:24 97.4 94 20 185/92 (123) 96 01/28/18 07:45 Room Air 01/28/18 04:18 166/80 (108) 01/28/18 04:00 47 01/28/18 03:22 98.3 55 20 175/79 (111) 96 01/28/18 00:26 Nasal Cannula 2.00 Humidified 01/28/18 00:00 50 01/28/18 00:00 98.1 54 16 188/82 (117) 96 01/27/18 20:00 Nasal Cannula 2.00 Humidified 01/27/18 20:00 52 01/27/18 20:00 98.2 67 16 170/80 (110) 96 I/O 01/27/18 01/27/18 01/27/18 01/28/18 01/28/18 01/28/18 07:00 15:00 23:00 07:00 15:00 23:00 Intake Total 120 ml 240 ml 100 ml Output Total 800 ml 350 ml 0 ml Balance -680 ml -110 ml 100 ml Intake Oral 120 ml 240 ml IV Total 100 ml Output Urine Total 800 ml 350 ml Chest Tube Drainage Total 0 ml # Bowel Movements 0 0 Result Diagram: 01/26/18 0755 01/26/18 0755 Objective Remarks GENERAL: Elderly male, NAD SKIN: Warm and dry. HEAD: Normocephalic. EYES: No scleral icterus. No injection or drainage. NECK: Supple, trachea midline. No JVD or lymphadenopathy. CARDIOVASCULAR: Regular rate and rhythm without murmurs, gallops, or rubs. RESPIRATORY: Breath sounds equal bilaterally. No accessory muscle use. Decreased BS left base GASTROINTESTINAL: Abdomen soft, non-tender, nondistended. MUSCULOSKELETAL: No cyanosis, or edema. BACK: Nontender without obvious deformity. No CVA tenderness. A/P Assessment and Plan IMPRESSION: 1. Left lung pneumonia. 2. Pleural effusion, possible parapneumonic pleural effusion. 3. Chronic obstructive pulmonary disease. 4. Nicotine use. 5. Alcohol use. 6. Hypertension. 7. Left PTX, s/p Chest tube removal PLAN: Cont Abx Aerosol nebs Supplement 02 to keep sat >90% Controll BP Jose Giron MD Jan 28, 2018 16:05
[2018-01-28] MEDS: traZODone HCL 100 MG TAB PO SCH (19:55)
[2018-01-28] MEDS: TAMSULOSIN HCL 0.4 MG CAP PO SCH (19:56)
[2018-01-29] VITALS (11 sets, daily range): BP systolic 135–190; BP diastolic 63–90; PULSE 46–72; RESP 17–20; TEMP 97.8–98.2; O2SAT 94–98
[2018-01-29] MEDS: LORazepam 0.5 MG TAB PO SCH ×4 (00:41→17:30)
[2018-01-29] MEDS: cloNIDine HCL 0.1 MG TAB PO PRN (00:41)
[2018-01-29] MEDS: ACETAMINOPHEN/HYDROcodone 325 MG/5 MG TAB PO PRN ×6 (00:45→18:40)
--- NOTE | 2018-01-29 07:26 | RADRPT ---
EXAM DATE: 01/28/2018 5:21 PM EDT AGE/SEX: 73 years / Male INDICATIONS: Pneumothorax. CLINICAL DATA: This is the patient's subsequent encounter. Patient reports that signs and symptoms h ave been present for 1 week and indicates a pain score of 5/10. MEDICAL/SURGICAL HISTORY: . Chronic obstructive pulmonary disease. Hypertension. Renal cell car cinoma. . . Partial nephrectomy. chest tube. COMPARISON: [facility] [place]ST [place]PIR[place], 01/20/2018. . FINDINGS: A single frontal expiratory view of the chest was performed. Bibasilar consolidation more pronounced on the left is stable. Small left effusion is stable. The left thoracostomy tube has been removed in the interval. There is a linear density partially seen overlying the left upper hemithorax. I see vas cular markings peripheral to this. Heart is normal in size. Bony structures are unremarkable. CONCLUSION: 1. There is a linear density seen involving the left chest but I see vascular markings peripheral to this. I do not feel this is related to a pneumothorax. I feel this relates to artifact. A follow-up chest x-ray can be performed tomorrow morning to assess for any change. 2. Unchanged left effusion and bibasilar infiltrates. Electronically signed by: Jose Roberto Benitez MD 01/28/2018 5:33 PM EDT
--- NOTE | 2018-01-29 07:27 | RADRPT ---
EXAM DATE: 01/28/2018 4:15 PM EDT AGE/SEX: 73 years / Male INDICATIONS: pneumothorax resolved, drain removal CLINICAL DATA: This is the patient's encounter. Patient reports that signs and symptoms have been pr esent for and indicates a pain score of . MEDICAL/SURGICAL HISTORY: COMPARISON: No prior exams available for comparison. DEVICE(S): Vaseline occlusive dressing gauze and tape PROCEDURE: 1. Chest tube removal. Using aseptic technique the previously placed chest tube was easily removed in one piece and Vaseline gauze and sterile dressing was applied. Chest radiograph is to be obtained. CONCLUSION: 1. Uncomplicated chest tube removal. Electronically signed by: Jose Roberto Benitez MD 01/28/2018 4:45 PM EDT
--- NOTE | 2018-01-29 07:29 | RADRPT ---
EXAM DATE: 01/28/2018 1:07 PM EDT AGE/SEX: 73 years / Male INDICATIONS: Short of breath. CLINICAL DATA: This is the patient's subsequent encounter. Patient reports that signs and symptoms h ave been present for 1 week and indicates a pain score of Nonresponsive. MEDICAL/SURGICAL HISTORY: . Chronic obstructive pulmonary disease. Hypertension. Renal cell car cinoma. . Partial nephrectomy. chest tube. COMPARISON: [facility] – [place], CHEST SINGLE AP, 01/26/2018. . FINDINGS: A small left-sided chest tube is again noted and unchanged in position. No recurrent pneumothorax is noted. Small left pleural effusion is noted. The heart is stable. Scattered atelectatic changes are n oted. Left basilar consolidation is stable. CONCLUSION: 1. No recurrent pneumothorax. 2. Small left pleural effusion is noted. 3. Left basilar consolidation is stable. 4. Scattered atelectatic changes. Electronically signed by: Shine Fuentes MD 01/28/2018 1:08 PM EDT
[2018-01-29] MEDS: CYANOCOBALAMIN 1,000 MCG TAB PO SCH (08:48)
[2018-01-29] MEDS: amLODIPine BESYLATE 5 MG TAB PO SCH (08:48)
[2018-01-29] MEDS: OXYBUTYNIN CHLORIDE 5 MG TAB PO SCH ×2 (08:48→20:53)
[2018-01-29] MEDS: DOCUSATE SODIUM 50 MG/SENNA 8.6 MG TAB PO SCH ×2 (08:53→20:53)
[2018-01-29] MEDS: FINASTERIDE 5 MG TAB PO SCH (08:53)
[2018-01-29] MEDS: SODIUM CHLORIDE 0.9% FLUSH 10 ML FLUSH IV FLUSH SCH ×2 (08:54→20:53)
[2018-01-29] MEDS: FLUTICASONE 200 MCG/VILANTEROL 25 MCG INHALER INH SCH (08:54)
[2018-01-29] MEDS ORDERED: LISINOPRIL 20 MG TAB PO SCH (09:00)
--- NOTE | 2018-01-29 09:43 | HHI.PR ---
Subjective Remarks Slept well Chest tube removed, No SOB C/O Herpetic pain to Left buttock Objective Vital Signs Date Time Temp Pulse Resp B/P (MAP) Pulse Ox O2 Delivery O2 Flow Rate FiO2 01/29/18 08:59 Nasal Cannula 2.00 01/29/18 08:00 97.8 49 17 165/78 (107) 96 01/29/18 04:00 63 01/29/18 04:00 98.1 51 18 157/83 (107) 97 01/29/18 00:00 49 01/29/18 00:00 97.8 67 18 98 01/29/18 00:00 190/80 (116) 01/28/18 21:56 21 01/28/18 21:00 Nasal Cannula 2.00 Humidified 01/28/18 20:00 98.0 60 18 162/84 (110) 95 01/28/18 20:00 49 01/28/18 16:00 98.1 55 20 162/80 (107) 98 01/28/18 15:37 77 01/28/18 12:00 97.5 53 20 131/67 (88) 98 01/28/18 11:44 48 I/O 01/28/18 01/28/18 01/28/18 01/29/18 01/29/18 01/29/18 07:00 15:00 23:00 07:00 15:00 23:00 Intake Total 240 ml 100 ml 1210 ml 220 ml Output Total 350 ml 0 ml 650 ml 875 ml Balance -110 ml 100 ml 560 ml -655 ml Intake Oral 240 ml 960 ml 220 ml IV Total 100 ml 250 ml Output Urine Total 350 ml 650 ml 875 ml Chest Tube Drainage Total 0 ml # Bowel Movements 0 1 Result Diagram: 01/26/18 0755 01/26/18 0755 Imaging Last 72 hours Impressions Chest X-Ray 01/28/18 1630 Signed Impressions: CONCLUSION: 1. There is a linear density seen involving the left chest but I see vascular markings peripheral to this. I do not feel this is related to a pneumothorax. I feel this relates to artifact. A follow-up chest x-ray can be performed tomorr ow morning to assess for any change. 2. Unchanged left effusion and bibasilar infiltrates. Chest X-Ray 01/28/18 1230 Signed Impressions: CONCLUSION: 1. No recurrent pneumothorax. 2. Small left pleural effusion is noted. 3. Left basilar consolidation is stable. 4. Scattered atelectatic changes. Tunnelled Chest Tube Removal 01/27/18 0000 Signed Impressions: CONCLUSION: 1. Uncomplicated chest tube removal. Procedures 01/18/18- Thoracentesis Left 450cc removed 01/20/18- L Chest tube placed 01/28/18 Chest tube removed Objective Remarks GENERAL:Well-developed patient, in no apparent distress. SKIN: . Warm and dry, dressing to left chest d/i post chest tube removal EYES: Pupils equal round and reactive. Extraocular motions intact. No scleral icterus. No injection or drainage. HEENT: Unremarkable NECK: Trachea midline. No JVD CARDIOVASCULAR: Regular rate and rhythm without murmurs, gallops, or rubs. RESPIRATORY: BS equal, diminished at base, scattered rhonchi GASTROINTESTINAL: Abdomen soft, non-tender, nondistended. MUSCULOSKELETAL: Extremities without clubbing, cyanosis, or edema. Negative Homans sign bilaterally. NEUROLOGICAL: Awake and alert. Normal speech. Medications and IVs Current Medications Medications (Trade) Dose Ordered Sig/Nayeli Route Start Time Stop Time Status Last Admin (NS Flush) 2 ml UNSCH PRN IV FLUSH 01/16/18 15:00 (NS Flush) 2 ml BID IV FLUSH 01/16/18 21:00 01/29/18 08:54 (Tylenol) 650 mg Q4H PRN PO 01/16/18 15:00 01/16/18 20:57 (Ambien) 5 mg HS PRN PO 01/16/18 15:00 01/24/18 23:00 (Lovenox Inj) 40 mg Q24H SQ 01/16/18 16:00 01/28/18 15:37 (Narcan Inj) 0.4 mg UNSCH PRN IV PUSH 01/16/18 15:00 (Elvie-Colace) 1 tab BID PO 01/16/18 21:00 01/29/18 08:53 (Milk Of Magnesia Liq) 30 ml Q12H PRN PO 01/16/18 15:00 01/23/18 09:18 (Senokot) 17.2 mg Q12H PRN PO 01/16/18 15:00 (Dulcolax Supp) 10 mg DAILY PRN RECTAL 01/16/18 15:00 01/23/18 21:40 (Lactulose Liq) 30 ml DAILY PRN PO 01/16/18 15:00 01/23/18 19:18 Azithromycin 500 mg/Sodium Chloride 250 ml @ 250 mls/hr Q24H IV 01/17/18 14:00 01/28/18 14:20 Ceftriaxone Sodium 2000 mg/ Sodium Chloride 100 ml @ 200 mls/hr Q24H IV 01/17/18 14:00 01/28/18 13:11 (Vitamin B12) 5,000 mcg DAILY PO 01/17/18 09:00 01/29/18 08:48 (Proscar) 5 mg DAILY PO 01/17/18 09:00 01/29/18 08:53 (Breo Ellipta 200-25 Inh) 1 puff DAILY INH 01/17/18 09:00 01/29/18 08:54 (Ditropan) 5 mg Q12HR PO 01/16/18 21:00 01/29/18 08:48 (Flomax) 0.4 mg HS PO 01/16/18 21:00 01/28/18 19:56 Patient Own Medication PT OWN MED: (Methylcellulose Pow... DAILY PO 01/17/18 09:00 Future Hold (Desyrel) 200 mg HS PO 01/16/18 21:00 01/28/18 19:55 ([place] 5-325 Mg) 1 tab Q4H PRN PO 01/17/18 14:45 01/25/18 22:17 ([place] 5-325 Mg) 2 tab Q4H PRN PO 01/17/18 14:45 01/29/18 08:47 (Catapres) 0.1 mg Q6H PRN PO 01/19/18 11:15 01/29/18 00:41 (Mycostatin Powder) 1 applic DAILY PRN TOPICAL 01/20/18 16:30 01/21/18 23:34 (Catapres-Tts 0.2 Mg Patch.7d) 1 patch Q7D T-DERMAL 01/22/18 10:00 01/22/18 10:26 (Norvasc) 5 mg DAILY PO 01/26/18 09:00 01/29/18 08:48 (Ativan) 0.5 mg Q6HR PO 01/27/18 18:00 6/15/18 06:49 (Prinivil) 40 mg Q12HR PO 01/29/18 09:00 01/29/18 08:46 Assessment and Plan Problem List: (1) Pleural effusion on left ICD Codes: J90 - Pleural effusion, not elsewhere classified (2) Left lower lobe pneumonia ICD Codes: J18.1 - Lobar pneumonia, unspecified organism Status: Acute (3) COPD (chronic obstructive pulmonary disease) ICD Codes: J44.9 - Chronic obstructive pulmonary disease, unspecified Status: Acute (4) Hypertension ICD Codes: I10 - Essential (primary) hypertension Status: Chronic Assessment and Plan 01/19/18- Thoracentesis yesterday with 450 cc taken off. Denies SOB, B/P elevated running systolic 180's. Lisinopril increased to 40 mg daily PRN clonidine added for systolic greater than 160 or diastolic greater than 90 01/20/18- No complaints thia am, Chest tube placed yesterday for L pneumothorax. Report mild discomfort. Pulmonary following. BP better this am. 01/21/18- Seen this am, denies any CP, does have tenderness around Chest tube site. Followed by Pulmonary, BC negative x 4 days, AFB pleural pending, on Airborne precautions. Cont with bronchodilators, IV Rocephin azithromycin. b/p still running high, Cardizem added. 01/22/18- B/P running high last documented 202/. he is on multiple agents. Clonidine 0.2mg patch added. Chest tube to sx, Afebrile, Pleural fluid AFB and Fungal pending. contact precautions for questionable shingles. NO BM x 5 days MOM today 01/25/18 Still having high B/P he is on multiple agents. HR bradycardia,in the 40 -50. Will reconsult cardiology for assistance. 01/26/18- Reports feeling good. No Headache, CP or SOB despite elevated BP.Cardiac reconsulted for recommendations. . Chest Tube still in place to left chest , pulmonary following. Will order PT to increase activity referral for [facility] when stable 01/27/18- NO complaints this am. Seen by cardiology for uncontrolled B/P. medications adjusted will cont to monitor. Per pulmonary notes Chest likely to be removed. Screened by [facility] not candidate will return to snf at [place]. Cont with bronchodilators, BC and Pleural fluid negative. Cont with PT activity 01/28/18- No complaints this am, CP scheduled to be removed today. Ativan added yesterday to for anxiety and to help with better Bp control. Cont with bronchodilators, Pt activity. Accepted at [facility] as long as BP <[address] removed[address] Likely to rehab in next 1-2 days. 01/29/18- Chest tube removed, Denies SOB. Does have some complaints of herpetic pain to left buttock, Will add gabapentin. Cxr this am. B/P better cotrolled. Pt activity in place, can DC to [facility] once cleared by Pulmonary Problem Qualifiers (1) Left lower lobe pneumonia: Qualified Codes: J18.1 - Lobar pneumonia, unspecified organism (2) COPD (chronic obstructive pulmonary disease): Qualified Codes: J44.1 - Chronic obstructive pulmonary disease with (acute) exacerbation Sulma Macias Jan 29, 2018 09:43
[2018-01-29] MEDS: cloNIDine HCL 0.2 MG/24 HR PATCH T-DERMAL SCH (10:13)
--- NOTE | 2018-01-29 11:54 | HHI.PR ---
Subjective Remarks 73 YOWM with COPD,Pn Pl eff Breathing better Denies sob Chest tube draining Denies sob Chest tube removed Objective Vital Signs Vital Signs Date Time Temp Pulse Resp B/P (MAP) Pulse Ox O2 Delivery O2 Flow Rate FiO2 01/29/18 08:59 Nasal Cannula 2.00 01/29/18 08:00 97.8 49 17 165/78 (107) 96 01/29/18 07:35 46 01/29/18 04:00 63 01/29/18 04:00 98.1 51 18 157/83 (107) 97 01/29/18 00:00 49 01/29/18 00:00 97.8 67 18 98 01/29/18 00:00 190/80 (116) 01/28/18 21:56 21 01/28/18 21:00 Nasal Cannula 2.00 Humidified 01/28/18 20:00 98.0 60 18 162/84 (110) 95 01/28/18 20:00 49 01/28/18 16:00 98.1 55 20 162/80 (107) 98 01/28/18 15:37 77 01/28/18 12:00 97.5 53 20 131/67 (88) 98 I/O 01/28/18 01/28/18 01/28/18 01/29/18 01/29/18 01/29/18 06:59 14:59 22:59 06:59 14:59 22:59 Intake Total 240 ml 100 ml 1210 ml 220 ml Output Total 350 ml 0 ml 650 ml 875 ml Balance -110 ml 100 ml 560 ml -655 ml Intake Oral 240 ml 960 ml 220 ml IV Total 100 ml 250 ml Output Urine Total 350 ml 650 ml 875 ml Chest Tube Drainage Total 0 ml # Bowel Movements 0 1 Result Diagram: 01/26/18 0755 01/26/18 0755 Objective Remarks GENERAL: Elderly male, NAD SKIN: Warm and dry. HEAD: Normocephalic. EYES: No scleral icterus. No injection or drainage. NECK: Supple, trachea midline. No JVD or lymphadenopathy. CARDIOVASCULAR: Regular rate and rhythm without murmurs, gallops, or rubs. RESPIRATORY: Breath sounds equal bilaterally. No accessory muscle use. Decreased BS left base GASTROINTESTINAL: Abdomen soft, non-tender, nondistended. MUSCULOSKELETAL: No cyanosis, or edema. BACK: Nontender without obvious deformity. No CVA tenderness. A/P Assessment and Plan IMPRESSION: 1. Left lung pneumonia. 2. Pleural effusion, possible parapneumonic pleural effusion. 3. Chronic obstructive pulmonary disease. 4. Nicotine use. 5. Alcohol use. 6. Hypertension. 7. Left PTX, s/p Chest tube removal PLAN: Cont Abx Aerosol nebs Supplement 02 to keep sat >90% Controll BP DC plans for [facility] Stable from Pulm standpoint for DC Jose Giron MD Jan 29, 2018 11:54
[2018-01-29] MEDS: GABAPENTIN 100 MG CAP PO SCH ×2 (12:36→17:30)
[2018-01-29] MEDS: cefTRIAXone INJ 2,000 MG in SODIUM CHLORIDE 0.9% INJ 100 ML IV SCH (14:16)
[2018-01-29] MEDS: AZITHROMYCIN INJ 500 MG in SODIUM CHLOR 0.9% 250 ML INJ 250 ML IV SCH (14:54)
[2018-01-29] MEDS: ENOXAPARIN SODIUM 40 MG/0.4 ML SYRINGE SQ SCH (16:39)
[2018-01-29] MEDS: traZODone HCL 100 MG TAB PO SCH (20:52)
[2018-01-29] MEDS: TAMSULOSIN HCL 0.4 MG CAP PO SCH (20:53)
[2018-01-30] VITALS: BP 179/85; PULSE 48; PULSE 60; RESP 18; TEMP 97.8; O2SAT 97
[2018-01-30] MEDS: LORazepam 0.5 MG TAB PO SCH ×3 (00:32→12:21)
[2018-01-30] MEDS: ACETAMINOPHEN/HYDROcodone 325 MG/5 MG TAB PO PRN ×3 (00:32→14:20)
[2018-01-30] MEDS: cloNIDine HCL 0.1 MG TAB PO PRN (03:02)
[2018-01-30 04:00] VITALS: BP 165/73; PULSE 47; PULSE 51; RESP 18; TEMP 98; O2SAT 97
[2018-01-30 08:00] VITALS: BP 168/81; PULSE 45; PULSE 48; RESP 16; TEMP 97.7; O2SAT 95
[2018-01-30 08:44] LABS: AUTOMATED NEUTROPHIL # 3.8 TH/MM3 (1.8-7.7); BASOPHIL # 0.1 TH/MM3 (0-0.2); EOSINOPHIL # 0.3 TH/MM3 (0-0.4); EOSINOPHIL % 4.4 % (0.0-4.0); HEMATOCRIT 40.3 % (39.0-51.0); HEMOGLOBIN 13.2 GM/DL (13.0-17.0); LYMPH % 28.9 % (9.0-44.0); LYMPHOCYTE # 1.9 TH/MM3 (1.0-4.8); MEAN CELL VOLUME 97.5 FL (80.0-100.0); MEAN CORPUSCULAR HGB CONC 32.8 % (32.0-36.0); MEAN PLATELET VOLUME 9.7 FL (7.0-11.0); MONO % 8.9 % (0.0-8.0); MONOCYTE # 0.6 TH/MM3 (0-0.9); NEUT % 56.8 % (16.0-70.0); PLATELET COUNT 190 TH/MM3 (150-450); RED BLOOD COUNT 4.14 MIL/MM3 (4.50-5.90); RED CELL DISTRIBUTION WIDTH 16.1 % (11.6-17.2); WHITE BLOOD COUNT 6.7 TH/MM3 (4.0-11.0)
[2018-01-30 09:11] LABS: BICARBONATE 25.9 MEQ/L (21.0-32.0); CALCIUM 9.1 MG/DL (8.5-10.1); CREATININE 1.54 MG/DL (0.60-1.30)
[2018-01-30] MEDS: CYANOCOBALAMIN 1,000 MCG TAB PO SCH (09:43)
[2018-01-30] MEDS: GABAPENTIN 100 MG CAP PO SCH ×2 (09:44→12:21)
[2018-01-30] MEDS: amLODIPine BESYLATE 5 MG TAB PO SCH (09:44)
[2018-01-30] MEDS: DOCUSATE SODIUM 50 MG/SENNA 8.6 MG TAB PO SCH (09:44)
[2018-01-30] MEDS: FINASTERIDE 5 MG TAB PO SCH (09:44)
[2018-01-30] MEDS: SODIUM CHLORIDE 0.9% FLUSH 10 ML FLUSH IV FLUSH SCH (09:44)
[2018-01-30] MEDS: OXYBUTYNIN CHLORIDE 5 MG TAB PO SCH (09:44)
[2018-01-30] MEDS: FLUTICASONE 200 MCG/VILANTEROL 25 MCG INHALER INH SCH (09:48)
--- NOTE | 2018-01-30 10:40 | HHI.DS ---
Discharge Summary Admission Date Jan 16, 2018 at 14:49 Admitting Diagnosis acute pneumonia, pleural effusion, chest pain (1) COPD exacerbation Diagnosis: Principal ICD Codes: J44.1 - COPD exacerbation Status: Acute (2) Acute hypoxemic respiratory failure Diagnosis: Principal ICD Codes: J96.01 - Acute respiratory failure with hypoxia (3) CKD (chronic kidney disease), stage III Diagnosis: Secondary ICD Codes: N18.3 - Chronic kidney disease, stage 3 (moderate) (4) HTN (hypertension) Diagnosis: Secondary ICD Codes: I10 - Essential (primary) hypertension Status: Chronic (5) BPH (benign prostatic hyperplasia) Diagnosis: Secondary ICD Codes: N40.0 - Benign prostatic hyperplasia without lower urinary tract symptoms Status: Chronic (6) Pleural effusion on left Diagnosis: Secondary ICD Codes: J90 - Pleural effusion, not elsewhere classified (7) Pneumothorax, left Diagnosis: Secondary ICD Codes: J93.9 - Pneumothorax, unspecified Procedures 01/18/18- Thoracentesis Left 450cc removed 01/20/18- L Chest tube placed 01/28/18 Chest tube removed Brief History Presented with PNA and SOB. CBC/BMP: 01/30/18 0730 01/30/18 0730 Significant Findings Laboratory Tests Test 01/30/18 07:30 Red Blood Count 4.14 MIL/MM3 (4.50-5.90) Monocytes (%) (Auto) 8.9 % (0.0-8.0) Eosinophils (%) (Auto) 4.4 % (0.0-4.0) Blood Urea Nitrogen 24 MG/DL (7-18) Creatinine 1.54 MG/DL (0.60-1.30) Estimat Glomerular Filtration Rate 44 ML/MIN (>89) Imaging Last Impressions Chest X-Ray 01/28/18 1630 Signed Impressions: CONCLUSION: 1. There is a linear density seen involving the left chest but I see vascular markings peripheral to this. I do not feel this is related to a pneumothorax. I feel this relates to artifact. A follow-up chest x-ray can be performed tomorr ow morning to assess for any change. 2. Unchanged left effusion and bibasilar infiltrates. Tunnelled Chest Tube Removal 01/27/18 0000 Signed Impressions: CONCLUSION: 1. Uncomplicated chest tube removal. Chest Tube Insertion 01/19/18 0000 Signed Impressions: CONCLUSION: 1. Uncomplicated left chest tube placement as above. Chest CT 01/19/18 0000 Signed Impressions: CONCLUSION: 1. New small to moderate left-sided pneumothorax. 2. New nonspecific parenchymal consolidation in the posterior left upper lung. 3. New compressive atelectasis in the left lower lung with a left-sided pleura l effusion. 4. Right lower lung posterior atelectasis. Thoracentesis Ultrasound 01/18/18 0600 Signed Impressions: CONCLUSION: 1. Uncomplicated left thoracentesis with removal of 450 cc of fluid. 2. Air was removed during the thoracentesis as well indicating that a pneumoth orax was present. Postprocedure chest x-ray demonstrates general lucency in the left lung without a clear pleural line visualized. Suggest obtaining a chest C T for further evaluation to determine the size of the suspected pneumothorax. 3. Findings were telephoned to Dr. Giron. PE at Discharge GENERAL: Awake and alert SKIN: Warm and dry. HEAD: Normocephalic. EYES: No scleral icterus. No injection or drainage. NECK: Supple, trachea midline. No JVD or lymphadenopathy. CARDIOVASCULAR: Regular rate and rhythm without murmurs, gallops, or rubs. RESPIRATORY: Breath sounds with scattered bilat rhonchi and decreased BS at left base. GASTROINTESTINAL: Abdomen soft, non-tender, nondistended. MUSCULOSKELETAL: No cyanosis, or edema. BACK: Nontender without obvious deformity. No CVA tenderness. Hospital Course Patient presented with SOB and PNA with COPD exacerbation and was seen in consult by Pulmonary. He was started on appropriate antibiotics and breathing treatments. He underwent a thoracentesis and suffered a left pneumothorax. The pneumothorax resolved with chest tube to suction and has been removed. He is now without complaints and prepared for D/C to [facility]. We will cont to F/? U in that facility as well. Pt Condition on Discharge: Stable Discharge Disposition: Rehab Inpatient Discharge Instructions DIET: Follow Instructions for: As Tolerated, No Restrictions Activities you can perform: Regular-No Restrictions Continued Medications: Cyanocobalamin (Vitamin B-12) 1,000 Mcg Subl 5000 MCG SL DAILY for Nutritional Supplement, TAB.SL 0 Refills Diltiazem (Diltiazem) 30 Mg Tab 30 MG PO TID for Angina, #120 TAB 0 Refills Doxazosin (Doxazosin) 8 Mg Tab 8 MG PO DAILY, #30 TAB 0 Refills Finasteride (Finasteride) 5 Mg Tab 5 MG PO DAILY for Manage Prostate Problems, #30 TAB 0 Refills Do not crush. Fluticasone-Vilanterol Inh (Breo Ellipta Inh) 200-25 Mcg/Act Inh 1 PUFF INH DAILY, #1 INHALER 0 Refills Use daily at the same time. Methylcellulose Powder (Citrucel Fiber Laxative Powder) 15 Ml Pow 15 ML PO DAILY for Prevent Constipation, #1 CONTAINER 0 Refills Mix in full glass water Oxybutynin (Ditropan) 5 Mg Tab 5 MG PO Q12HR for Urinary Symptom Managemen, #60 TAB 0 Refills Tamsulosin (Tamsulosin) 0.4 Mg Cap 0.4 MG PO HS for Manage Prostate Problems, #30 CAP 0 Refills Trazodone (Trazodone) 100 Mg Tablet 200 MG PO HS for Control Depression, #30 TAB 0 Refills Donovan Villeda Jan 30, 2018 10:40
[2018-01-30 12:00] VITALS: BP 142/89; PULSE 50; PULSE 54; RESP 16; TEMP 97.5; O2SAT 95
[2018-01-30 14:12] VITALS: O2SAT 95
== END 2018-01-30 15:31 | DRG 186 ==
LOC: NEPE 13:20 → NEDA 14:49 → N04A 21:04
PROVIDERS: ADMIT Family Medicine; ATTEND Family Medicine
PROC: 0W9B3ZZ Drainage of Left Pleural Cavity, Percutaneous Approach (ICD-10-PCS; principal; 2018-01-18)
PROC: 0W9B30Z Drainage of Left Pleural Cavity with Drainage Device, Percutaneous Approach (ICD-10-PCS; 2018-01-19)
DX: J90 Pleural effusion, not elsewhere classified (principal); J96.01 Acute respiratory failure with hypoxia; J18.1 Lobar pneumonia, unspecified organism; J44.1 Chronic obstructive pulmonary disease with (acute) exacerbation; J95.811 Postprocedural pneumothorax; J44.0 Chronic obstructive pulmonary disease with (acute) lower respiratory infection; N18.3 Chronic kidney disease, stage 3 (moderate); G62.9 Polyneuropathy, unspecified; R00.1 Bradycardia, unspecified; I12.9 Hypertensive chronic kidney disease with stage 1 through stage 4 chronic kidney disease, or unspecified chronic kidney disease; I95.1 Orthostatic hypotension; R07.89 Other chest pain; F41.9 Anxiety disorder, unspecified; N40.0 Benign prostatic hyperplasia without lower urinary tract symptoms; K21.9 Gastro-esophageal reflux disease without esophagitis; F17.200 Nicotine dependence, unspecified, uncomplicated; Z85.528 Personal history of other malignant neoplasm of kidney
CPT/HCPCS: 32555; 32557; 71045; 71046; 71250; 80048; 80053; 81001; 82550; 82945; 83605; 83615; 83690; 83735; 83880; 83986; 84157; 84484; 85025; 85610; 85730; 87015; 87040; 87070; 87102; 87116; 87205; 87206; 88112; 88305; 89051; 93005; 93306; 96374; 96375; 99152; C1729; C1769; J0456; J0696; J1170; J1650; J2250; J2270; J3010; J7030; J7050

== ENCOUNTER 2018-02-08 10:40 | Inpatient (IN) ==
[2018-02-14] MEDS ORDERED: Acetaminophen 325 MG Tablet PO PRN (01:12)
[2018-02-14] MEDS ORDERED: Naloxone Inj 0.4 MG/ML Vial IV.PUSH PRN (01:28)
[2018-02-14] MEDS ORDERED: Phenol 1.4% 180 ML Spray Bottle PO PRN (01:29)
[2018-02-14] MEDS ORDERED: Lidocaine 5% Patch T-DERMAL SCH (01:30)
[2018-02-14] MEDS ORDERED: Promethazine 25 MG Supp RECTAL PRN (01:31)
[2018-02-14] MEDS: Sod Chloride 0.9% Inj 1,000 ML IV.CONT SCH ×3 (03:05→22:30)
[2018-02-14] MEDS: Folic Acid 1 MG Tablet PO SCH (09:19)
[2018-02-14] MEDS: Senna/Docusate Sodium 8.6/50 MG Tablet PO SCH ×2 (09:19→21:26)
[2018-02-14] MEDS: Enoxaparin Inj 30 MG/0.3 ML Syringe SQ SCH (09:20)
[2018-02-14] MEDS: Lidocaine 5% Patch T-DERMAL SCH (09:24)
[2018-02-14] MEDS ORDERED: Diatrizoate Meglum/Diatrizoate Sod Liq 9 ML UDC PO ONE (10:00)
--- NOTE | 2018-02-14 14:03 | P.PNFP ---
Subjective Interval history: He still has NGT to LIS and remains very unable as he wants to eat and drink. Results - Labs Result diagrams: 02/12/18 07:33 02/12/18 07:33 Abnormal lab results 02/12/18 02/12/18 Range/Units 07:33 07:33 RBC 4.07 L (4.50-5.90) MIL/MM3 Hgb 12.9 L (13.0-17.0) GM/DL RDW 17.4 H (11.6-17.2) % Neut % (Auto) 80.5 H (16.0-70.0) % [place] % (Auto) 8.4 H (0.0-8.0) % Sodium 146 H (136-145) MEQ/L Potassium 3.3 L (3.5-5.1) MEQ/L BUN 25 H (7-18) MG/DL Creatinine 1.52 H (0.60-1.30) MG/DL Estimated GFR 45 L (>89) ML/MIN Random Glucose 126 H (74-106) MG/DL Short CBC 02/12/18 Range/Units 07:33 WBC 9.3 (4.0-11.0) TH/MM3 Hgb 12.9 L (13.0-17.0) GM/DL Hct 39.0 (39.0-51.0) % Plt Count 269 D (150-450) TH/MM3 BMP 02/12/18 07:33 Sodium 146 H Potassium 3.3 L Chloride 102 Carbon Dioxide 30.3 BUN 25 H Creatinine 1.52 H Calcium 9.8 - Imaging Impressions Abdomen/Pelvis CT 02/14/18 00:00 CONCLUSION: Bowel containing left inguinal hernia. No significant change from recent prior. No new acute findings. Physical Exam Vital signs: Vital Signs 02/14/18 03:04 02/14/18 04:00 02/14/18 08:00 Temperature 97.9 F 97.5 F L 98.6 F Pulse Rate 80 62 88 Respiratory Rate 18 16 18 Blood Pressure 195/91 H 199/64 H 196/86 H Pulse Oximetry 91 L 93 L 91 L 02/14/18 12:00 Temperature 97.6 F Pulse Rate 62 Respiratory Rate 20 Blood Pressure 214/100 H Pulse Oximetry 90 L Intake & Output 02/13/18 02/14/18 02/14/18 18:59 06:59 18:59 Output Total 900 / 900 Balance -900 / -900 Weight 0 g Output: Urine 300 / 300 Gastric Drainage 600 / 600 Left Nare 600 / 600 - Constitutional no acute distress - Routine HEENT Exam Head: Present: normocephalic Eye: Present: EOMI ENT: Present: mucous membranes moist - Routine Neck Exam Present: supple - Routine Respiratory Exam Present: CTA bilaterally - Routine Cardiovascular Exam Present: RRR - Routine Abdominal Exam Present: soft, normoactive bowel sounds - Routine Extremities Exam Present: full ROM - Routine Skin Exam Present: intact - Routine Neurological Exam Present: alert Assessment and Plan - Assessment (1) Ileus, unspecified Code(s): K56.7 - Ileus, unspecified Status: Acute Plan: Cont NGT to LIS per recommendations of GI. (2) Pneumothorax, left Code(s): J93.9 - Pneumothorax, unspecified Status: Acute Plan: Cont CT and F/U Pulm recommendations - Plan NGT per GI plan. Hopefully will D/C soon and then progress diet as tolerated. Discussed Condition With: Patient and RN
--- NOTE | 2018-02-14 15:06 | P.PNPL ---
Subjective Interval history: __ Subjective Remarks 73 YOWM with recent pneumonia, Pl eff, PTX Had bronch, lots of mucous plugs removed from left lung No obstuting lesion seen after mucous suctioning Erythema of airways seen Has NGT placed, to suction Chest tube removed 02/12 BAL Pseudomonas C/o abd pain Physical Exam Vital signs: Vital Signs 02/14/18 03:04 02/14/18 04:00 02/14/18 08:00 Temperature 97.9 F 97.5 F L 98.6 F Pulse Rate 80 62 88 Respiratory Rate 18 16 18 Blood Pressure 195/91 H 199/64 H 196/86 H Pulse Oximetry 91 L 93 L 91 L 02/14/18 12:00 Temperature 97.6 F Pulse Rate 62 Respiratory Rate 20 Blood Pressure 214/100 H Pulse Oximetry 90 L Intake & Output 02/13/18 02/14/18 02/14/18 18:59 06:59 18:59 Intake Total 1000 / 1000 Output Total 900 / 900 Balance -900 / -900 1000 / 1000 Weight 0 g Intake: IV 1000 / 1000 NS Inj 1,000 ML @ 100 mls/hr IV 1000 / 1000 .CONT .Q10H YOLETTE Rx#:[id number] Output: Urine 300 / 300 Gastric Drainage 600 / 600 Left Nare 600 / 600 Narrative: Objective Remarks GENERAL: MBMN WM, NAD SKIN: Warm and dry. HEAD: Normocephalic. EYES: No scleral icterus. No injection or drainage. NECK: Supple, trachea midline. No JVD or lymphadenopathy. CARDIOVASCULAR: Regular rate and rhythm without murmurs, gallops, or rubs. RESPIRATORY: Breath sounds equal bilaterally. No accessory muscle use. GASTROINTESTINAL: Abdomen soft, non-tender, nondistended. NGT to suction MUSCULOSKELETAL: No cyanosis, or edema. BACK: Nontender without obvious deformity. No CVA tenderness Assessment and Plan - Plan A/P Assessment and Plan IMPRESSION: 1. Left pneumothorax, status post chest tube placement. 2. Pleural effusion. 3. Recent pneumonia. 4. Chronic obstructive pulmonary disease. 5. Ileus PLAN Supplement 02 Cont Levaquin pain controll Stable on RA NGT to suction
[2018-02-14] MEDS: Levofloxacin 500 mg Premix Inj 500 MG/100 ML PIGGYBACK IV.SIG SCH (17:29)
[2018-02-14] MEDS: LORazepam 0.5 MG Tablet PO PRN ×2 (17:29→23:24)
--- NOTE | 2018-02-14 18:00 | P.PNGI ---
Subjective Interval history: Patient is resting in the bed currently NG tube connected to low intermittent suction with bilious secretions After coming back from CT patient had some bright red bleeding noted in tube currently being flushed and monitored per his nurse Hemoglobin 12.9, INR 1.1, IV fluids infusing at 100 cc an hour Tolerating small amounts of ice chips positive for some generalized abdominal pain, some flatus noted per patient <Mary Spaulding - Last Filed: 02/14/18 18:15> Physical Exam Vital signs: Vital Signs 02/14/18 03:04 02/14/18 04:00 02/14/18 08:00 Temperature 97.9 F 97.5 F L 98.6 F Pulse Rate 80 62 88 Respiratory Rate 18 16 18 Blood Pressure 195/91 H 199/64 H 196/86 H Pulse Oximetry 91 L 93 L 91 L 02/14/18 12:00 02/14/18 16:00 Temperature 97.6 F 97.2 F L Pulse Rate 62 90 Respiratory Rate 20 18 Blood Pressure 214/100 H 178/84 H Pulse Oximetry 90 L 91 L Intake & Output 02/13/18 02/14/18 02/14/18 18:59 06:59 18:59 Intake Total 1000 / 1000 Output Total 900 / 900 Balance -900 / -900 1000 / 1000 Weight 0 g Intake: IV 1000 / 1000 NS Inj 1,000 ML @ 100 mls/hr IV 1000 / 1000 .CONT .Q10H [facility] Rx#:[id number] Output: Urine 300 / 300 Gastric Drainage 600 / 600 Left Nare 600 / 600 - Constitutional mild distress, chronically ill appearing - Routine HEENT Exam Head: Present: normocephalic, atraumatic (Pale) Eye: Present: EOMI ENT: Present: mucous membranes dry (NG tube noted to low intermittent suction) - Routine Neck Exam Present: supple - Routine Respiratory Exam Present: decreased breath sounds - Routine Cardiovascular Exam Present: RRR (Low volumes but no obvious rhonchi or wheezing) - Routine Abdominal Exam Present: normoactive bowel sounds (Very soft bowel sounds, tautness to palpation ) - Routine Skin Exam Present: intact - Routine Neurological Exam Present: alert - Detailed Neurological Exam: Coma Scale Eye Opening: Spontaneous (Answering simple questions) Verbal Response: Oriented - Routine Psychiatric Exam Present: anxious (Mild) <Mary Spaulding - Last Filed: 02/14/18 18:15> Vital signs: Vital Signs 02/14/18 03:04 02/14/18 04:00 02/14/18 08:00 Temperature 97.9 F 97.5 F L 98.6 F Pulse Rate 80 62 88 Respiratory Rate 18 16 18 Blood Pressure 195/91 H 199/64 H 196/86 H Pulse Oximetry 91 L 93 L 91 L 02/14/18 12:00 02/14/18 16:00 Temperature 97.6 F 97.2 F L Pulse Rate 62 90 Respiratory Rate 20 18 Blood Pressure 214/100 H 178/84 H Pulse Oximetry 90 L 91 L Intake & Output 02/14/18 02/14/18 02/15/18 06:59 18:59 06:59 Intake Total 1000 / 1000 Output Total 900 / 900 700 / 700 Balance -900 / -900 300 / 300 Intake: IV 1000 / 1000 NS Inj 1,000 ML @ 100 mls/hr IV 1000 / 1000 .CONT .Q10H [facility] Rx#:[id number] Output: Urine 300 / 300 Gastric Drainage 600 / 600 700 / 700 Left Nare 600 / 600 700 / 700 <Kelvin Burger - Last Filed: 02/14/18 20:47> Results - Labs CBC & Chem 7: 02/12/18 07:33 02/12/18 07:33 Laboratory Results - last 24 hr 02/12/18 02/12/18 07:33 07:33 WBC 9.3 RBC 4.07 L Hgb 12.9 L Hct 39.0 MCV 95.8 MCH 31.7 MCHC 33.1 RDW 17.4 H Plt Count 269 D MPV 9.8 Neut % (Auto) 80.5 H Lymph % (Auto) 10.8 [place] % (Auto) 8.4 H Eos % (Auto) 0.1 Baso % (Auto) 0.2 Neut # (Auto) 7.5 Lymph # (Auto) 1.0 [place] # (Auto) 0.8 Eos # (Auto) 0.0 Baso # (Auto) 0.0 CBC Comment DIFF FINAL Sodium 146 H Potassium 3.3 L Chloride 102 Carbon Dioxide 30.3 Anion Gap 14 BUN 25 H Creatinine 1.52 H Estimated GFR 45 L Random Glucose 126 H Calcium 9.8 - Imaging Impressions Abdomen/Pelvis CT 02/14/18 00:00 CONCLUSION: Bowel containing left inguinal hernia. No significant change from recent prior. No new acute findings. <Mary Spaulding - Last Filed: 02/14/18 18:15> - Labs CBC & Chem 7: 02/12/18 07:33 02/12/18 07:33 Laboratory Results - last 24 hr 02/12/18 02/12/18 07:33 07:33 WBC 9.3 RBC 4.07 L Hgb 12.9 L Hct 39.0 MCV 95.8 MCH 31.7 MCHC 33.1 RDW 17.4 H Plt Count 269 D MPV 9.8 Neut % (Auto) 80.5 H Lymph % (Auto) 10.8 [place] % (Auto) 8.4 H Eos % (Auto) 0.1 Baso % (Auto) 0.2 Neut # (Auto) 7.5 Lymph # (Auto) 1.0 [place] # (Auto) 0.8 Eos # (Auto) 0.0 Baso # (Auto) 0.0 CBC Comment DIFF FINAL Sodium 146 H Potassium 3.3 L Chloride 102 Carbon Dioxide 30.3 Anion Gap 14 BUN 25 H Creatinine 1.52 H Estimated GFR 45 L Random Glucose 126 H Calcium 9.8 - Imaging Impressions Abdomen/Pelvis CT 02/14/18 00:00 CONCLUSION: Bowel containing left inguinal hernia. No significant change from recent prior. No new acute findings. <Kelvin Burger - Last Filed: 02/14/18 20:47> Assessment and Plan (1) Anemia Status: Acute Code(s): D64.9 - Anemia, unspecified - Plan Ileus initial GI consult initially x-rays showed diffuse adynamic ileus, gradual improvement patient continues with NG tube to low intermittent suction and today some mild red blood noted after patient was back from radiology today general gradual improvement throughout the day which could have been per nurse after some flushing and mild repositioning. Could have been related to trauma during transfer. Patient's currently tolerating ice chips and IV fluids continue at 100 cc an hour. Recheck KUB today, pending, moderate gaseous distention of the bowel continues current hemoglobin 12.9, INR 1.1, WBC count normalized at 9.3. Note CAT scan results today pending. Patient is passing small amounts of flatus and does note some generalized abdominal discomfort Note this patient was admitted from [facility] for large left pneumothorax status post chest tube placement. Plan N.p.o. except for ice chips Recheck KUB NG tube continues to low intermittent suction Monitor labs with special attention to any acute bleeding or hemoglobin drop. Reglan now scheduled Bowel regimen Supportive care Patient was seen per myself and Dr. Burger, note was written on his behalf <Mary Spaulding - Last Filed: 02/14/18 18:15> (1) Anemia Status: Acute Code(s): D64.9 - Anemia, unspecified - Plan agree with above. - Attending Attestation The exam, history, and the medical decision-making described in the above note were completed with the assistance of the mid-level provider. I reviewed and agree with the findings presented. I attest that I had a [id number] encounter with the patient on the same day, and personally performed and documented my assessment and findings in the medical record. <Kelvin Burger - Last Filed: 02/14/18 20:47>
[2018-02-14] MEDS: traZODone 100 MG Tablet PO SCH (21:25)
[2018-02-15] MEDS: Sod Chloride 0.9% Inj 1,000 ML IV.CONT SCH ×3 (04:46→21:57)
[2018-02-15] MEDS: Enoxaparin Inj 30 MG/0.3 ML Syringe SQ SCH (08:48)
[2018-02-15] MEDS: Senna/Docusate Sodium 8.6/50 MG Tablet PO SCH ×2 (08:52→20:06)
[2018-02-15] MEDS: Folic Acid 1 MG Tablet PO SCH (08:52)
[2018-02-15] MEDS: Lidocaine 5% Patch T-DERMAL SCH (09:00)
[2018-02-15 12:11] LABS: Baso # (Auto) 0.1 th/mm3 (0.0-0.2); Baso % (Auto) 1.1 % (0.0-2.0); Eos # (Auto) 0.2 th/mm3 (0.0-0.4); Eos % (Auto) 2.2 % (0.0-4.0); Hematocrit 32.9 % (39.0-51.0); Hemoglobin 10.9 gm/dL (13.0-17.0); Lymph # (Auto) 1.6 th/mm3 (1.0-4.8); Lymph % (Auto) 16.8 % (9.0-44.0); Mean Corpuscular HGB Conc 33.1 % (32.0-36.0); Mean Corpuscular Hemoglobin 31.2 pg (27.0-34.0); Mean Corpuscular Volume 94.2 fL (80.0-100.0); Mean Platelet Volume 9.2 fL (7.0-11.0); Mono # (Auto) 0.7 th/mm3 (0.0-0.9); Mono % (Auto) 7.3 % (0.0-8.0); Neut # (Auto) 7.1 th/mm3 (1.8-7.7); Neut % (Auto) 72.6 % (16.0-70.0); Platelet Count 206 th/mm3 (150-450); Red Blood Count 3.49 mil/mm3 (4.50-5.90); Red Cell Distribution Width 16.5 % (11.6-17.2); White Blood Count 9.7 th/mm3 (4.0-11.0)
[2018-02-15 12:46] LABS: Eosinophils 2 % (0-4); Lymphocytes 18 % (9-44); Monocytes 7 % (0-8); Myelocytes 1 % (0-0)
[2018-02-15 12:47] LABS: Platelet Estimate Normal (Normal); Platelet Morphology Normal (Normal)
[2018-02-15 13:03] LABS: Calcium 8.2 mg/dL (8.5-10.1); Carbon Dioxide 26.9 meq/L (21.0-32.0); Magnesium 1.7 mg/dL (1.5-2.5); Potassium 3.2 meq/L (3.5-5.1)
--- NOTE | 2018-02-15 14:21 | P.PNCA ---
Subjective Interval history: No CP or SOB, undergoing GI eval, CT discontinued Physical Exam Vital signs: Vital Signs 02/14/18 16:00 02/14/18 20:00 02/14/18 23:45 Temperature 97.2 F L 97.2 F L Pulse Rate 90 68 74 Respiratory Rate 18 16 Blood Pressure 178/84 H 167/81 H Pulse Oximetry 91 L 92 L 02/15/18 00:00 02/15/18 04:46 02/15/18 08:00 Temperature 98.2 F 98.5 F 98.2 F Pulse Rate 75 62 88 Respiratory Rate 16 16 18 Blood Pressure 179/87 H 191/84 H 209/89 H Pulse Oximetry 90 L 92 L 91 L 02/15/18 12:00 Temperature 98.1 F Pulse Rate 96 H Respiratory Rate 18 Blood Pressure 169/79 H Pulse Oximetry 92 L Intake & Output 02/14/18 02/15/18 02/15/18 18:59 06:59 18:59 Intake Total 1000 / 1000 1000 / 1000 1000 / 1000 Output Total 700 / 700 450 / 450 350 / 350 Balance 300 / 300 550 / 550 650 / 650 Intake: IV 1000 / 1000 1000 / 1000 1000 / 1000 NS Inj 1,000 ML @ 100 mls/hr IV 1000 / 1000 1000 / 1000 1000 / 1000 .CONT .Q10H [facility] Rx#:[id number] Output: Urine 450 / 450 350 / 350 Gastric Drainage 700 / 700 0 / 0 Left Nare 700 / 700 0 / 0 - Constitutional mild distress - Routine Cardiovascular Exam Present: RRR. Absent: murmur, gallop - Routine Abdominal Exam Present: soft - Routine Extremities Exam Absent: edema - Routine Neurological Exam Present: alert Assessment and Plan - Assessment (1) Orthostatic hypotension Code(s): I95.1 - Orthostatic hypotension Status: Acute (2) Hypertension Code(s): I10 - Essential (primary) hypertension Status: Acute (3) Ileus, unspecified Code(s): K56.7 - Ileus, unspecified Status: Acute (4) Pneumothorax, left Code(s): J93.9 - Pneumothorax, unspecified Status: Acute (5) Anemia Code(s): D64.9 - Anemia, unspecified Status: Acute - Plan Still hypertensive, but no recent orthostatic hypotension. No further CP once CT out. GI evaluation in progress. Increase activity.
[2018-02-15] MEDS ORDERED: Potassium Chloride 25 MEQ Effervescent Tablet PO ONE (14:38)
--- NOTE | 2018-02-15 14:44 | P.PNFP ---
Subjective Interval history: Complains of fatigue this am NG tube to LWS Denies Cp, SOB Results - Labs Result diagrams: 02/15/18 11:44 02/15/18 11:46 Abnormal lab results 02/15/18 02/15/18 Range/Units 11:44 11:46 RBC 3.49 L (4.50-5.90) mil/mm3 Hgb 10.9 L (13.0-17.0) gm/dL Hct 32.9 L (39.0-51.0) % Neut % (Auto) 72.6 H (16.0-70.0) % Seg Neuts % (Manual) 72 H (16-70) % Myelocytes % (Man) 1 H (0-0) % Potassium 3.2 L (3.5-5.1) meq/L BUN 26 H (7-18) mg/dL Estimated GFR 63 L (>89) mL/min Random Glucose 65 L (74-106) mg/dL Calcium 8.2 L (8.5-10.1) mg/dL Short CBC 02/15/18 Range/Units 11:44 WBC 9.7 (4.0-11.0) th/mm3 Hgb 10.9 L (13.0-17.0) gm/dL Hct 32.9 L (39.0-51.0) % Plt Count 206 (150-450) th/mm3 BMP 02/15/18 11:46 Sodium 142 Potassium 3.2 L Chloride 101 Carbon Dioxide 26.9 BUN 26 H Creatinine 1.13 Calcium 8.2 L Physical Exam Vital signs: Vital Signs 02/14/18 16:00 02/14/18 20:00 02/14/18 23:45 Temperature 97.2 F L 97.2 F L Pulse Rate 90 68 74 Respiratory Rate 18 16 Blood Pressure 178/84 H 167/81 H Pulse Oximetry 91 L 92 L 02/15/18 00:00 02/15/18 04:46 02/15/18 08:00 Temperature 98.2 F 98.5 F 98.2 F Pulse Rate 75 62 88 Respiratory Rate 16 16 18 Blood Pressure 179/87 H 191/84 H 209/89 H Pulse Oximetry 90 L 92 L 91 L 02/15/18 12:00 Temperature 98.1 F Pulse Rate 96 H Respiratory Rate 18 Blood Pressure 169/79 H Pulse Oximetry 92 L Intake & Output 02/14/18 02/15/18 02/15/18 18:59 06:59 18:59 Intake Total 1000 / 1000 1000 / 1000 1000 / 1000 Output Total 700 / 700 450 / 450 350 / 350 Balance 300 / 300 550 / 550 650 / 650 Intake: IV 1000 / 1000 1000 / 1000 1000 / 1000 NS Inj 1,000 ML @ 100 mls/hr IV 1000 / 1000 1000 / 1000 1000 / 1000 .CONT .Q10H [facility] Rx#:[id number] Output: Urine 450 / 450 350 / 350 Gastric Drainage 700 / 700 0 / 0 Left Nare 700 / 700 0 / 0 - Constitutional no acute distress, thin - Routine HEENT Exam Eye: Present: PERRL Comments: NG tube to LIWS - Routine Respiratory Exam Present: CTA bilaterally - Routine Abdominal Exam Present: soft Comments: nontender BS hypoactive - Routine Skin Exam Present: intact - Routine Neurological Exam Present: alert, oriented X3 - Routine Psychiatric Exam Present: cooperative Assessment and Plan - Assessment (1) Ileus, unspecified Code(s): K56.7 - Ileus, unspecified Status: Acute Plan: Cont NGT to LIS per recommendations of GI. (2) Pneumothorax, left Code(s): J93.9 - Pneumothorax, unspecified Status: Acute Plan: Chest tube removed 02/12 denies SOB F/U Pulm recommendations - Plan 02/15/18- Denies SOB, CP. Chest tube removed 02/12. Tender at site, pain controlled with current tx. NG tube in place to sx. Brown drainage noted. VSS afebrile. He voices he is fatigued, Not sure if he had BM today. Labs show Potassium 3.2, will replace. Hopes to go back to [place] at [place].
--- NOTE | 2018-02-15 15:37 | P.PNGI ---
Subjective Interval history: Pt resting in bed Abdomen lap machine tender He states he has been passing gas, unsure if he has had any stool but states the nurse had to wipe him earlier Denies nausea, vomiting Has been taking small sips of water <Nathalie Knight - Last Filed: 02/15/18 15:28> Physical Exam Vital signs: Vital Signs 02/14/18 16:00 02/14/18 20:00 02/14/18 23:45 Temperature 97.2 F L 97.2 F L Pulse Rate 90 68 74 Respiratory Rate 18 16 Blood Pressure 178/84 H 167/81 H Pulse Oximetry 91 L 92 L 02/15/18 00:00 02/15/18 04:46 02/15/18 08:00 Temperature 98.2 F 98.5 F 98.2 F Pulse Rate 75 62 88 Respiratory Rate 16 16 18 Blood Pressure 179/87 H 191/84 H 209/89 H Pulse Oximetry 90 L 92 L 91 L 02/15/18 12:00 Temperature 98.1 F Pulse Rate 96 H Respiratory Rate 18 Blood Pressure 169/79 H Pulse Oximetry 92 L Intake & Output 02/14/18 02/15/18 02/15/18 18:59 06:59 18:59 Intake Total 1000 / 1000 1000 / 1000 1000 / 1000 Output Total 700 / 700 450 / 450 350 / 350 Balance 300 / 300 550 / 550 650 / 650 Intake: IV 1000 / 1000 1000 / 1000 1000 / 1000 NS Inj 1,000 ML @ 100 mls/hr IV 1000 / 1000 1000 / 1000 1000 / 1000 .CONT .Q10H [facility] Rx#:[id number] Output: Urine 450 / 450 350 / 350 Gastric Drainage 700 / 700 0 / 0 Left Nare 700 / 700 0 / 0 - Constitutional no acute distress - Routine HEENT Exam Head: Present: normocephalic, atraumatic - Routine Respiratory Exam Absent: accessory muscle use - Routine Abdominal Exam Present: soft, normoactive bowel sounds, tenderness (mild generalized abdominal tenderness ). Absent: distended - Routine Neurological Exam Present: alert <Nathalie Knight - Last Filed: 02/15/18 15:28> Vital signs: Vital Signs 02/14/18 20:00 02/14/18 23:45 02/15/18 00:00 Temperature 97.2 F L 98.2 F Pulse Rate 68 74 75 Respiratory Rate 16 16 Blood Pressure 167/81 H 179/87 H Pulse Oximetry 92 L 90 L 02/15/18 04:46 02/15/18 08:00 02/15/18 12:00 Temperature 98.5 F 98.2 F 98.1 F Pulse Rate 62 88 96 H Respiratory Rate 16 18 18 Blood Pressure 191/84 H 209/89 H 169/79 H Pulse Oximetry 92 L 91 L 92 L 02/15/18 16:00 Temperature 97.8 F Pulse Rate 108 H Respiratory Rate 20 Blood Pressure 240/93 H Pulse Oximetry 93 L Intake & Output 02/14/18 02/15/18 02/15/18 18:59 06:59 18:59 Intake Total 1000 / 1000 1000 / 1000 1000 / 1000 Output Total 700 / 700 450 / 450 350 / 350 Balance 300 / 300 550 / 550 650 / 650 Intake: IV 1000 / 1000 1000 / 1000 1000 / 1000 NS Inj 1,000 ML @ 100 mls/hr IV 1000 / 1000 1000 / 1000 1000 / 1000 .CONT .Q10H [facility] Rx#:[id number] Oral 0 / 0 Output: Urine 450 / 450 350 / 350 Stool 0 / 0 Gastric Drainage 700 / 700 0 / 0 Left Nare 700 / 700 0 / 0 <Deirdre Sánchez - Last Filed: 02/15/18 17:51> Results - Labs CBC & Chem 7: 02/15/18 11:44 02/15/18 11:46 Laboratory Results - last 24 hr 02/15/18 02/15/18 11:44 11:46 WBC 9.7 RBC 3.49 L Hgb 10.9 L Hct 32.9 L MCV 94.2 MCH 31.2 MCHC 33.1 RDW 16.5 Plt Count 206 MPV 9.2 Prelim Diff (Auto) Slide review pending Neut % (Auto) 72.6 H Lymph % (Auto) 16.8 [place] % (Auto) 7.3 Eos % (Auto) 2.2 Baso % (Auto) 1.1 Neut # (Auto) 7.1 Lymph # (Auto) 1.6 [place] # (Auto) 0.7 Eos # (Auto) 0.2 Baso # (Auto) 0.1 WBC Differential Manual diff final Seg Neuts % (Manual) 72 H Lymphocytes % (Manual) 18 Monocytes % (Manual) 7 Eosinophils % (Manual) 2 Myelocytes % (Man) 1 H Abs Neuts (Manual) 7.1 Differential Comment . Platelet Estimate Normal Platelet Morphology Normal Sodium 142 Potassium 3.2 L Chloride 101 Carbon Dioxide 26.9 Anion Gap 14 BUN 26 H Creatinine 1.13 Estimated GFR 63 L Random Glucose 65 L Calcium 8.2 L Magnesium 1.7 <Nathalie Knight - Last Filed: 02/15/18 15:28> - Labs CBC & Chem 7: 02/15/18 11:44 02/15/18 11:46 Laboratory Results - last 24 hr 02/15/18 02/15/18 11:44 11:46 WBC 9.7 RBC 3.49 L Hgb 10.9 L Hct 32.9 L MCV 94.2 MCH 31.2 MCHC 33.1 RDW 16.5 Plt Count 206 MPV 9.2 Prelim Diff (Auto) Slide review pending Neut % (Auto) 72.6 H Lymph % (Auto) 16.8 [place] % (Auto) 7.3 Eos % (Auto) 2.2 Baso % (Auto) 1.1 Neut # (Auto) 7.1 Lymph # (Auto) 1.6 [place] # (Auto) 0.7 Eos # (Auto) 0.2 Baso # (Auto) 0.1 WBC Differential Manual diff final Seg Neuts % (Manual) 72 H Lymphocytes % (Manual) 18 Monocytes % (Manual) 7 Eosinophils % (Manual) 2 Myelocytes % (Man) 1 H Abs Neuts (Manual) 7.1 Differential Comment . Platelet Estimate Normal Platelet Morphology Normal Sodium 142 Potassium 3.2 L Chloride 101 Carbon Dioxide 26.9 Anion Gap 14 BUN 26 H Creatinine 1.13 Estimated GFR 63 L Random Glucose 65 L Calcium 8.2 L Magnesium 1.7 - Imaging Impressions Abdomen X-Ray 02/15/18 00:00 CONCLUSION: Improving bowel gas pattern compared to the prior exam. <Deirdre Sánchez - Last Filed: 02/15/18 17:51> Assessment and Plan (1) Anemia Status: Acute Code(s): D64.9 - Anemia, unspecified - Plan Assessment: - Ileus KUB (02/13) Moderate gaseous distention of bowel CT abdomen and pelvis W IV contrast (02/14) Bowel containing left inguinal hernia. No significant change from recent prior. No new acute findings. Pt currently with NG to LIWS. States he is passing gas. Unsure of BMs but states the nurse did have to wipe him earlier. Pt on Reglan q 6hrs. Also on Elvie-Colace. - L pneumothorax S/P chest tube and removal (02/15) Minimal amount of output in NG canister but there was 700 mL gastric drainage documented from yesterday. Pt taking small sips of water. Pt unable to provide symptoms, when asked about how his stomach feels he states he is unsure. Abdomen exam reveals mild generalized tenderness but abdomen is soft and nondistended. Reports passing gas but does not think he has had a BM. Of note, pt on [place]. Plan: Relistor x 1 Repeat KUB If negative can start on clear liquids If tolerating, remove NG Will continue to follow Pt has been seen and examined by myself and Dr. Sánchez and this note is written on her behalf <Nathalie Knight - Last Filed: 02/15/18 15:28> (1) Anemia Status: Acute Code(s): D64.9 - Anemia, unspecified - Attending Attestation seen, examined agree with above ct abdomen and pelvis done yesterday, stool in rectum d/c ngt clear liquid diet Dulcolax suppositories, if worse reinsert ngt <Deirdre Sánchez - Last Filed: 02/15/18 17:51>
[2018-02-15] MEDS: LORazepam 0.5 MG Tablet PO PRN (15:43)
--- NOTE | 2018-02-15 16:25 | XR ---
EXAM DATE: 02/15/2018 4:21 PM EDT AGE/SEX: 73 years / Male INDICATIONS: Diffuse abdominal pain, evaluate ileus CLINICAL DATA: This is the patient's subsequent encounter. Patient reports that signs and symptoms h ave been present for 1 week and indicates a pain score of 10/10. MEDICAL/SURGICAL HISTORY: . nausea Non-responsive. COMPARISON: [facility], ABDOMEN KUB ONLY, 02/13/2018. . FINDINGS: Today's exam is compared to the prior study. There is an NG tube in the stomach. There continues to be some air-filled loops of small and large bowel without significant dilatation. The overall bowel g as pattern appears to be improved compared to the prior study. The bony structures are stable. CONCLUSION: Improving bowel gas pattern compared to the prior exam. Electronically signed by: Merrick Casanova MD 02/15/2018 4:23 PM EDT
[2018-02-15] MEDS ORDERED: Methylnaltrexone Inj 12 MG/0.6 ML Vial SQ ONE (16:30)
[2018-02-15] MEDS: traZODone 100 MG Tablet PO SCH (20:05)
[2018-02-16] MEDS: LORazepam 0.5 MG Tablet PO PRN (01:23)
[2018-02-16] MEDS: Morphine Inj 4 MG/ML Vial IV.PUSH PRN (06:03)
[2018-02-16] MEDS: Senna/Docusate Sodium 8.6/50 MG Tablet PO SCH ×2 (08:26→20:14)
[2018-02-16] MEDS: Folic Acid 1 MG Tablet PO SCH (08:26)
[2018-02-16] MEDS: Enoxaparin Inj 30 MG/0.3 ML Syringe SQ SCH (08:27)
--- NOTE | 2018-02-16 09:09 | P.CONCA ---
<Jennifer Hernandez - Last Filed: 02/16/18 09:09> History of Present Illness Service: cardiology Consult date: 02/16/18 Reason for Consult: hypertension Primary Care Provider: No Primary Care Physician Chief Complaint: HTN History of Present Illness: 73 yo WM with CKD, HTN, COPD recently admitted from rehab facility for pneumonia. He subsequently developed a pneumothorax requiring chest tube ( removed on 02/12/18), NG tube recently removed as well. Blood pressures have been elevated during admission and SBP spiked to 240 overnight. While in rehab he had been hypotensive requiring midodrine which he is no longer taking. He reports having urinary retention overnight with parrish placement; feeling much better this morning. recent echo shows normal EF 55%. No chest pain, sob or palpitations. He is currently taking clonidine 0.1mg every 4 hours along with Catapres patch and IV vasotec 1.25mg every 6 hours. Review of Systems Constitutional: Denies chills, Denies headache(s), Denies weight gain Cardiovascular: Denies chest pain, Denies leg swelling, Denies rapid, pounding, or irregular heartbeat, Denies shortness of breath Respiratory: Denies cough, Denies coughing up blood, Denies shortness of breath , Denies wheezing Gastrointestinal: Denies abdominal pain, Denies nausea, Denies vomiting PMFSH - History History Provided By: Patient Medications and Allergies Allergies Allergy/AdvReac Type Severity Reaction Status Date / Time No Known Allergies Allergy Unknown Uncoded 01/30/18 16:02 Home Medications Medication Instructions Recorded Confirmed Type acetaminophen 650 mg PO Q4H PRN 02/13/18 02/13/18 History clonidine HCl 0.1 mg PO Q6HR PRN 02/13/18 02/13/18 History cyanocobalamin (vitamin B-12) 2,000 mcg PO DAILY 02/13/18 02/13/18 History cyanocobalamin (vitamin B-12) 5,000 mcg SUBLINGUAL DAILY 02/13/18 02/13/18 History diltiazem HCl 30 mg PO TID 02/13/18 02/13/18 History diltiazem HCl 120 mg PO DAILY 02/13/18 02/13/18 History doxazosin 8 mg PO DAILY 02/13/18 02/13/18 History finasteride 5 mg PO DAILY 02/13/18 02/13/18 History fluticasone-vilanterol 1 inh INHALATION DAILY 02/13/18 02/13/18 History fluticasone-vilanterol 1 inh INHALATION DAILY 02/13/18 02/13/18 History folic acid 1 mg PO DAILY 02/13/18 02/13/18 History ipratropium-albuterol 3 ml INHALATION Q4H PRN 02/13/18 02/13/18 History methylcellulose (with sugar) 1.5 tbsp PO DAILY 02/13/18 02/13/18 History midodrine 5 mg PO TID 02/13/18 02/13/18 History oxybutynin chloride 5 mg PO Q12HR 02/13/18 02/13/18 History oxybutynin chloride 5 mg PO Q12HR 02/13/18 02/13/18 History sennosides-docusate sodium 1 tab PO BID 02/13/18 02/13/18 History tamsulosin 0.4 mg PO HS 02/13/18 02/13/18 History trazodone 200 mg PO HS 02/13/18 02/13/18 History trazodone 200 mg PO HS 02/13/18 02/13/18 History Active Medications: Active Medications Acetaminophen (Tylenol) 650 mg PO Q4H PRN PRN Reason: TEMPERATURE > 101.4 F Hydrocodone Bitart/Acetaminophen ([place] 10/325) 2 tab PO Q4H PRN PRN Reason: PAIN SCALE 5 - 10 Last Admin: 02/16/18 04:34 Dose: 2 tab Acyclovir (Zovirax 5% Cream) 1 applicatio TOPICAL 5 TIMES A DAY [facility] Last Admin: 02/16/18 08:28 Dose: 1 applicatio Albuterol (Duoneb Neb (Prn)) 1 ampul NEB Q4HR NEB PRN PRN Reason: DYSPNEA Clonidine HCl (Catapres) 0.1 mg PO Q4H PRN PRN Reason: SBP> 160 OR DBP > 90 Last Admin: 02/16/18 04:34 Dose: 0.1 mg Clonidine HCl (Catapress-Tts 0.1 Mg Patch.7d) 1 patch T-DERMAL Q7D [facility] Enalaprilat (Vasotec Inj) 1.25 mg IV.PUSH Q6H PRN PRN Reason: SEE LABEL COMMENTS Last Admin: 02/16/18 06:03 Dose: 1.25 mg Enoxaparin Sodium (Lovenox Inj) 30 mg SQ Q24H [facility] Last Admin: 02/16/18 08:27 Dose: 30 mg Fluticasone/Vilanterol (Breo Ellipta 200/25 Mcg Inh) 1 puff INH DAILY [facility] Last Admin: 02/16/18 08:29 Dose: 1 puff Folic Acid (Folic Acid) 1 mg PO DAILY [facility] Last Admin: 02/16/18 08:26 Dose: 1 mg Levofloxacin/Dextrose (Levaquin 500 Mg Premix Inj) 500 mg in 100 mls @ 100 mls/ hr IV.SIG Q48H [facility] Last Infusion: 02/16/18 07:25 Dose: Infused Lactulose (Lactulose Liq) 30 ml PO DAILY PRN PRN Reason: SEVERE CONSITIPATION Lidocaine HCl (Lidoderm 5% Patch.12 Hr) 1 patch T-DERMAL Q24H [facility] Last Admin: 02/15/18 09:00 Dose: Not Given Lorazepam (Ativan) 0.25 mg PO Q6H PRN PRN Reason: ANXIETY Last Admin: 02/16/18 01:23 Dose: 0.25 mg Metoclopramide HCl (Reglan Inj) 5 mg IV.PUSH Q6H [facility] Last Admin: 02/16/18 08:27 Dose: 5 mg Midodrine (Proamatine) 5 mg PO TID@0800,1200,1700 [facility] Last Admin: 02/15/18 18:23 Dose: Not Given Miscellaneous (Pill Splitter) 1 each OTHER UNSCH [facility] Morphine Sulfate (Morphine Inj) 2 mg IV.PUSH Q2H PRN PRN Reason: PAIN SCALE 1 TO 10 Last Admin: 02/16/18 06:03 Dose: 2 mg Naloxone HCl (Narcan Inj) 0.4 mg IV.PUSH UNSCH PRN PRN Reason: SEE LABEL COMMENTS Oxybutynin Chloride (Ditropan) 5 mg PO Q12HR [facility] Last Admin: 02/16/18 08:26 Dose: 5 mg Patch Removal (Remove Old Patch) 1 each T-DERMAL Q24H [facility] Last Admin: 02/15/18 21:58 Dose: Not Given Promethazine HCl (Phenergan Inj) 25 mg IM Q6M PRN PRN Reason: SEE LABEL COMMENTS Promethazine HCl (Phenergan Supp) 25 mg RECTAL Q6H PRN PRN Reason: SEE LABEL COMMENTS Senna/Docusate Sodium (Elvie-Colace) 1 tab PO BID [facility] Last Admin: 02/16/18 08:26 Dose: 1 tab Sodium Chloride (Ns Flush) 2 ml IV.FLUSH UNSCH PRN PRN Reason: FLUSH AFTER USING IV ACCESS Sodium Chloride (Ns Flush) 2 ml IV.FLUSH BID [facility] Last Admin: 02/16/18 08:30 Dose: 2 ml Tamsulosin HCl (Flomax) 0.4 mg PO [facility] Last Admin: 02/15/18 20:06 Dose: 0.4 mg Throat Lozenges (Chloraseptic [place]) 1 spray PO Q2H PRN PRN Reason: SORE THROAT Trazodone HCl (Desyrel) 200 mg PO [facility] Last Admin: 02/15/18 20:05 Dose: 200 mg Exam Vital signs: Vital Signs 02/15/18 12:00 02/15/18 16:00 02/16/18 00:00 Temperature 98.1 F 97.8 F 98.5 F Pulse Rate 96 H 108 H 67 Respiratory Rate 18 20 20 Blood Pressure 169/79 H 240/93 H 239/105 H Pulse Oximetry 92 L 93 L 95 02/16/18 04:00 02/16/18 06:00 02/16/18 08:00 Temperature 97.9 F 98.0 F Pulse Rate 55 L 79 66 Respiratory Rate 18 16 Blood Pressure 206/80 H 204/98 H 182/86 H Pulse Oximetry 95 95 02/16/18 08:40 Temperature 97.6 F Pulse Rate 65 Respiratory Rate 18 Blood Pressure 167/79 H Pulse Oximetry Intake & Output 02/15/18 02/16/18 02/16/18 18:59 06:59 18:59 Intake Total 1000 / 1000 1000 / 1000 1100 / 1100 Output Total 350 / 350 625 / 625 Balance 650 / 650 375 / 375 1100 / 1100 Weight 57.8 kg Intake: IV 1000 / 1000 1000 / 1000 1100 / 1100 NS Inj 1,000 ML @ 100 mls/hr IV 1000 / 1000 1000 / 1000 1000 / 1000 .CONT .Q10H [facility] Rx#:[id number] Levaquin 500 mg Premix Inj 500 100 / 100 mg In 100 ml @ 100 mls/hr IV. SIG Q48H [facility] Rx#:[id number] Oral 0 / 0 Output: Urine 350 / 350 625 / 625 Stool 0 / 0 - Constitutional no acute distress - Routine Respiratory Exam Present: CTA bilaterally. Absent: accessory muscle use, rales, rhonchi, wheezes - Routine Cardiovascular Exam Present: RRR, S1, S2. Absent: murmur - Routine Extremities Exam Absent: edema Results 02/15/18 11:44 02/15/18 11:46 CBC 02/15/18 Range/Units 11:44 WBC 9.7 (4.0-11.0) th/mm3 RBC 3.49 L (4.50-5.90) mil/mm3 Hgb 10.9 L (13.0-17.0) gm/dL Hct 32.9 L (39.0-51.0) % Plt Count 206 (150-450) th/mm3 Neut # (Auto) 7.1 (1.8-7.7) th/mm3 Lymph # (Auto) 1.6 (1.0-4.8) th/mm3 [place] # (Auto) 0.7 (0.0-0.9) th/mm3 Eos # (Auto) 0.2 (0.0-0.4) th/mm3 Baso # (Auto) 0.1 (0.0-0.2) th/mm3 Comprehensive Metabolic Panel 02/15/18 Range/Units 11:46 Sodium 142 (136-145) meq/L Potassium 3.2 L (3.5-5.1) meq/L Chloride 101 (98-107) meq/L Carbon Dioxide 26.9 (21.0-32.0) meq/L BUN 26 H (7-18) mg/dL Creatinine 1.13 (0.60-1.30) mg/dL Calcium 8.2 L (8.5-10.1) mg/dL Intake and Output 02/15/18 02/16/18 02/16/18 22:59 06:59 14:59 Intake Total 1000 / 1000 1100 / 1100 Output Total 0 / 0 625 / 625 Balance 1000 / 1000 -625 / -625 1100 / 1100 Intake: IV 1000 / 1000 1100 / 1100 NS Inj 1,000 ML @ 100 mls/hr IV 1000 / 1000 1000 / 1000 .CONT .Q10H [facility] Rx#:[id number] Levaquin 500 mg Premix Inj 500 100 / 100 mg In 100 ml @ 100 mls/hr IV. SIG Q48H [facility] Rx#:[id number] Oral 0 / 0 Output: Urine 625 / 625 Stool 0 / 0 Other: Weight 57.8 kg Assessment and Plan - Assessment (1) Hypertension Code(s): I10 - Essential (primary) hypertension Status: Acute - Plan HTN- add amlodipine 5mg daily along with lisinopril 40mg <Minor,Darius - Last Filed: 02/16/18 12:38> History of Present Illness Primary Care Provider: No Primary Care Physician Medications and Allergies Active Medications: Active Medications Acetaminophen (Tylenol) 650 mg PO Q4H PRN PRN Reason: TEMPERATURE > 101.4 F Hydrocodone Bitart/Acetaminophen ([place] 10/325) 2 tab PO Q4H PRN PRN Reason: PAIN SCALE 5 - 10 Last Admin: 02/16/18 04:34 Dose: 2 tab Acyclovir (Zovirax 5% Cream) 1 applicatio TOPICAL 5 TIMES A DAY [facility] Last Admin: 02/16/18 09:58 Dose: 1 applicatio Albuterol (Duoneb Neb (Prn)) 1 ampul NEB Q4HR NEB PRN PRN Reason: DYSPNEA Amlodipine Besylate (Norvasc) 5 mg PO DAILY [facility] Last Admin: 02/16/18 09:58 Dose: 5 mg Clonidine HCl (Catapres) 0.1 mg PO Q4H PRN PRN Reason: SBP> 160 OR DBP > 90 Last Admin: 02/16/18 04:34 Dose: 0.1 mg Clonidine HCl (Catapress-Tts 0.1 Mg Patch.7d) 1 patch T-DERMAL Q7D [facility] Last Admin: 02/16/18 09:56 Dose: Not Given Enalaprilat (Vasotec Inj) 1.25 mg IV.PUSH Q6H PRN PRN Reason: SEE LABEL COMMENTS Last Admin: 02/16/18 06:03 Dose: 1.25 mg Enoxaparin Sodium (Lovenox Inj) 30 mg SQ Q24H [facility] Last Admin: 02/16/18 08:27 Dose: 30 mg Fluticasone/Vilanterol (Breo Ellipta 200/25 Mcg Inh) 1 puff INH DAILY [facility] Last Admin: 02/16/18 08:29 Dose: 1 puff Folic Acid (Folic Acid) 1 mg PO DAILY [facility] Last Admin: 02/16/18 08:26 Dose: 1 mg Levofloxacin/Dextrose (Levaquin 500 Mg Premix Inj) 500 mg in 100 mls @ 100 mls/ hr IV.SIG Q48H [facility] Last Infusion: 02/16/18 07:25 Dose: Infused Lactulose (Lactulose Liq) 30 ml PO DAILY PRN PRN Reason: SEVERE CONSITIPATION Lidocaine HCl (Lidoderm 5% Patch.12 Hr) 1 patch T-DERMAL Q24H [facility] Last Admin: 02/16/18 09:31 Dose: 1 patch Lisinopril (Prinivil) 40 mg PO DAILY [facility] Last Admin: 02/16/18 11:30 Dose: 40 mg Lorazepam (Ativan) 0.25 mg PO Q6H PRN PRN Reason: ANXIETY Last Admin: 02/16/18 01:23 Dose: 0.25 mg Metoclopramide HCl (Reglan Inj) 5 mg IV.PUSH Q6H [facility] Last Admin: 02/16/18 08:27 Dose: 5 mg Midodrine (Proamatine) 5 mg PO TID@0800,1200,1700 [facility] Last Admin: 02/15/18 18:23 Dose: Not Given Miscellaneous (Pill Splitter) 1 each OTHER UNSCH [facility] Morphine Sulfate (Morphine Inj) 2 mg IV.PUSH Q2H PRN PRN Reason: PAIN SCALE 1 TO 10 Last Admin: 02/16/18 06:03 Dose: 2 mg Naloxone HCl (Narcan Inj) 0.4 mg IV.PUSH UNSCH PRN PRN Reason: SEE LABEL COMMENTS Oxybutynin Chloride (Ditropan) 5 mg PO Q12HR [facility] Last Admin: 02/16/18 08:26 Dose: 5 mg Patch Removal (Remove Old Patch) 1 each T-DERMAL Q24H [facility] Last Admin: 02/15/18 21:58 Dose: Not Given Promethazine HCl (Phenergan Inj) 25 mg IM Q6M PRN PRN Reason: SEE LABEL COMMENTS Promethazine HCl (Phenergan Supp) 25 mg RECTAL Q6H PRN PRN Reason: SEE LABEL COMMENTS Senna/Docusate Sodium (Elvie-Colace) 1 tab PO BID [facility] Last Admin: 02/16/18 08:26 Dose: 1 tab Sodium Chloride (Ns Flush) 2 ml IV.FLUSH UNSCH PRN PRN Reason: FLUSH AFTER USING IV ACCESS Sodium Chloride (Ns Flush) 2 ml IV.FLUSH BID [facility] Last Admin: 02/16/18 08:30 Dose: 2 ml Tamsulosin HCl (Flomax) 0.4 mg PO [facility] Last Admin: 02/15/18 20:06 Dose: 0.4 mg Throat Lozenges (Chloraseptic [place]) 1 spray PO Q2H PRN PRN Reason: SORE THROAT Trazodone HCl (Desyrel) 200 mg PO [facility] Last Admin: 02/15/18 20:05 Dose: 200 mg Exam Vital signs: Vital Signs 02/15/18 16:00 02/16/18 00:00 02/16/18 04:00 Temperature 97.8 F 98.5 F 97.9 F Pulse Rate 108 H 67 55 L Respiratory Rate 20 20 18 Blood Pressure 240/93 H 239/105 H 206/80 H Pulse Oximetry 93 L 95 95 02/16/18 06:00 02/16/18 08:00 02/16/18 08:40 Temperature 98.0 F 97.6 F Pulse Rate 79 66 65 Respiratory Rate 16 18 Blood Pressure 204/98 H 182/86 H 167/79 H Pulse Oximetry 95 02/16/18 12:00 Temperature 98.0 F Pulse Rate 57 L Respiratory Rate 17 Blood Pressure 187/79 H Pulse Oximetry 94 L Intake & Output 02/15/18 02/16/18 02/16/18 18:59 06:59 18:59 Intake Total 1000 / 1000 1000 / 1000 1100 / 1100 Output Total 350 / 350 625 / 625 Balance 650 / 650 375 / 375 1100 / 1100 Weight 57.8 kg Intake: IV 1000 / 1000 1000 / 1000 1100 / 1100 NS Inj 1,000 ML @ 100 mls/hr IV 1000 / 1000 1000 / 1000 1000 / 1000 .CONT .Q10H [facility] Rx#:[id number] Levaquin 500 mg Premix Inj 500 100 / 100 mg In 100 ml @ 100 mls/hr IV. SIG Q48H [facility] Rx#:[id number] Oral 0 / 0 Output: Urine 350 / 350 625 / 625 Stool 0 / 0 Results 02/15/18 11:44 02/15/18 11:46 Comprehensive Metabolic Panel 02/15/18 Range/Units 11:46 Sodium 142 (136-145) meq/L Potassium 3.2 L (3.5-5.1) meq/L Chloride 101 (98-107) meq/L Carbon Dioxide 26.9 (21.0-32.0) meq/L BUN 26 H (7-18) mg/dL Creatinine 1.13 (0.60-1.30) mg/dL Calcium 8.2 L (8.5-10.1) mg/dL Intake and Output 02/15/18 02/16/18 02/16/18 22:59 06:59 14:59 Intake Total 1000 / 1000 1100 / 1100 Output Total 0 / 0 625 / 625 Balance 1000 / 1000 -625 / -625 1100 / 1100 Intake: IV 1000 / 1000 1100 / 1100 NS Inj 1,000 ML @ 100 mls/hr IV 1000 / 1000 1000 / 1000 .CONT .Q10H [facility] Rx#:[id number] Levaquin 500 mg Premix Inj 500 100 / 100 mg In 100 ml @ 100 mls/hr IV. SIG Q48H [facility] Rx#:[id number] Oral 0 / 0 Output: Urine 625 / 625 Stool 0 / 0 Other: Weight 57.8 kg Assessment and Plan - Assessment (1) Hypertension Code(s): I10 - Essential (primary) hypertension Status: Acute - Attending Attestation hypertensive urgency Lisinopril 40 added amlodipine 5 BID added hydralazine PRN consider coreg or HCTZ if BP still elevated
[2018-02-16] MEDS ORDERED: amLODIPine 5 MG Tablet PO SCH (09:15)
[2018-02-16] MEDS: Lidocaine 5% Patch T-DERMAL SCH (09:31)
[2018-02-16] MEDS: Lisinopril 20 MG Tablet PO SCH (11:30)
--- NOTE | 2018-02-16 14:41 | P.PNFP ---
Subjective Interval history: Voice rough night, Trouble with Bp, unable to void requiring placement of indwelling Resting comfortable currently Results - Labs Result diagrams: 02/15/18 11:44 02/15/18 11:46 - Imaging Impressions Abdomen X-Ray 02/15/18 00:00 CONCLUSION: Improving bowel gas pattern compared to the prior exam. Physical Exam Vital signs: Vital Signs 02/15/18 16:00 02/16/18 00:00 02/16/18 04:00 Temperature 97.8 F 98.5 F 97.9 F Pulse Rate 108 H 67 55 L Respiratory Rate 20 20 18 Blood Pressure 240/93 H 239/105 H 206/80 H Pulse Oximetry 93 L 95 95 02/16/18 06:00 02/16/18 08:00 02/16/18 08:40 Temperature 98.0 F 97.6 F Pulse Rate 79 66 65 Respiratory Rate 16 18 Blood Pressure 204/98 H 182/86 H 167/79 H Pulse Oximetry 95 02/16/18 12:00 Temperature 98.0 F Pulse Rate 57 L Respiratory Rate 17 Blood Pressure 187/79 H Pulse Oximetry 94 L Intake & Output 02/15/18 02/16/18 02/16/18 18:59 06:59 18:59 Intake Total 1000 / 1000 1000 / 1000 1100 / 1100 Output Total 350 / 350 625 / 625 Balance 650 / 650 375 / 375 1100 / 1100 Weight 57.8 kg Intake: IV 1000 / 1000 1000 / 1000 1100 / 1100 NS Inj 1,000 ML @ 100 mls/hr IV 1000 / 1000 1000 / 1000 1000 / 1000 .CONT .Q10H [facility] Rx#:[id number] Levaquin 500 mg Premix Inj 500 100 / 100 mg In 100 ml @ 100 mls/hr IV. SIG Q48H [facility] Rx#:[id number] Oral 0 / 0 Output: Urine 350 / 350 625 / 625 Stool 0 / 0 - Constitutional no acute distress, thin, chronically ill appearing - Routine HEENT Exam Head: Present: normocephalic Eye: Present: PERRL - Routine Neck Exam Present: supple - Routine Respiratory Exam Present: CTA bilaterally - Routine Cardiovascular Exam Present: RRR, S1, S2 - Routine Abdominal Exam Present: soft, tenderness - Routine Skin Exam Present: intact - Routine Neurological Exam Present: alert, oriented X3 - Urinary Catheter Management Indwelling Urethral Catheter Cath placed during this visit: yes Urethral indwelling: Yes Reason for continuing: Acute urinary retention Insertion date: 02/16/18 Insertion time: 06:33 Assessment and Plan - Assessment (1) Ileus, unspecified Code(s): K56.7 - Ileus, unspecified Status: Acute Plan: NG placed on 02/09/18. NG removed 02/15/18 (2) Pneumothorax, left Code(s): J93.9 - Pneumothorax, unspecified Status: Acute Plan: Chest tube placed 02/08/18 Chest tube removed 02/12 denies SOB F/U Pulmonary recommendations - Assessment and Plan 02/15/18- Denies SOB, CP. Chest tube removed 02/12. Tender at site, pain controlled with current tx. NG tube in place to sx. Brown drainage noted. VSS afebrile. He voices he is fatigued, Not sure if he had BM today. Labs show Potassium 3.2, will replace. Hopes to go back to [place]. 02/16/18- Had issues with controlling Bp throughout night. B/P running in 200's systolic Medications include lisinopril 40mg qd, Cardiology added Norvasc 5mg bid today. Midodrine Dc, Prn medications include clonidine 0.1 mg q4, Vasotec 1.25 q6 prn. both for systolic >160/90. ND removed tolerating full liq diet. Chest tube removed, breathing w/o difficulty. Pt activity ordered. Gi following cont to follow rec's, likely diet to be advanced.
--- NOTE | 2018-02-16 16:01 | P.PNGI ---
Subjective Interval history: Pt resting in bed. Tolerating liquid diet. No BM yet but does report passing gas. Denies nausea,vomiting. States his stomach is a little bit sore. <Nathalie Knight - Last Filed: 02/16/18 15:58> Physical Exam Vital signs: Vital Signs 02/15/18 16:00 02/16/18 00:00 02/16/18 04:00 Temperature 97.8 F 98.5 F 97.9 F Pulse Rate 108 H 67 55 L Respiratory Rate 20 20 18 Blood Pressure 240/93 H 239/105 H 206/80 H Pulse Oximetry 93 L 95 95 02/16/18 06:00 02/16/18 08:00 02/16/18 08:40 Temperature 98.0 F 97.6 F Pulse Rate 79 66 65 Respiratory Rate 16 18 Blood Pressure 204/98 H 182/86 H 167/79 H Pulse Oximetry 95 02/16/18 12:00 Temperature 98.0 F Pulse Rate 57 L Respiratory Rate 17 Blood Pressure 187/79 H Pulse Oximetry 94 L Intake & Output 02/15/18 02/16/18 02/16/18 18:59 06:59 18:59 Intake Total 1000 / 1000 1000 / 1000 1100 / 1100 Output Total 350 / 350 625 / 625 Balance 650 / 650 375 / 375 1100 / 1100 Weight 57.8 kg Intake: IV 1000 / 1000 1000 / 1000 1100 / 1100 NS Inj 1,000 ML @ 100 mls/hr IV 1000 / 1000 1000 / 1000 1000 / 1000 .CONT .Q10H [facility] Rx#:[id number] Levaquin 500 mg Premix Inj 500 100 / 100 mg In 100 ml @ 100 mls/hr IV. SIG Q48H [facility] Rx#:[id number] Oral 0 / 0 Output: Urine 350 / 350 625 / 625 Stool 0 / 0 - Constitutional no acute distress - Routine HEENT Exam Head: Present: normocephalic, atraumatic - Routine Respiratory Exam Absent: accessory muscle use - Routine Abdominal Exam Present: soft, normoactive bowel sounds, tenderness. Absent: distended, rebound , guarding - Routine Skin Exam Present: dry, warm - Urinary Catheter Management Indwelling Urethral Catheter Cath placed during this visit: yes Urethral indwelling: Yes Reason for continuing: Acute urinary retention Insertion date: 02/16/18 Insertion time: 06:33 <Nathalie Knight - Last Filed: 02/16/18 15:58> Vital signs: Vital Signs 02/16/18 00:00 02/16/18 04:00 02/16/18 06:00 Temperature 98.5 F 97.9 F Pulse Rate 67 55 L 79 Respiratory Rate 20 18 Blood Pressure 239/105 H 206/80 H 204/98 H Pulse Oximetry 95 95 02/16/18 08:00 02/16/18 08:40 02/16/18 12:00 Temperature 98.0 F 97.6 F 98.0 F Pulse Rate 66 65 57 L Respiratory Rate 16 18 17 Blood Pressure 182/86 H 167/79 H 187/79 H Pulse Oximetry 95 94 L 02/16/18 16:00 Temperature 98.3 F Pulse Rate 56 L Respiratory Rate 18 Blood Pressure 169/76 H Pulse Oximetry 93 L Intake & Output 02/15/18 02/16/18 02/16/18 18:59 06:59 18:59 Intake Total 1000 / 1000 1000 / 1000 1100 / 1100 Output Total 350 / 350 625 / 625 500 / 500 Balance 650 / 650 375 / 375 600 / 600 Weight 57.8 kg Intake: IV 1000 / 1000 1000 / 1000 1100 / 1100 NS Inj 1,000 ML @ 100 mls/hr IV 1000 / 1000 1000 / 1000 1000 / 1000 .CONT .Q10H [facility] Rx#:[id number] Levaquin 500 mg Premix Inj 500 100 / 100 mg In 100 ml @ 100 mls/hr IV. SIG Q48H [facility] Rx#:[id number] Oral 0 / 0 0 / 0 Output: Urine 350 / 350 625 / 625 500 / 500 Stool 0 / 0 0 / 0 Gastric Drainage 0 / 0 Left Nare 0 / 0 - Urinary Catheter Management Indwelling Urethral Catheter Cath placed during this visit: no <Deirdre Sánchez - Last Filed: 02/16/18 18:36> Results - Labs CBC & Chem 7: 02/15/18 11:44 02/15/18 11:46 - Imaging Impressions Abdomen X-Ray 02/15/18 00:00 CONCLUSION: Improving bowel gas pattern compared to the prior exam. <Nathalie Knight - Last Filed: 02/16/18 15:58> - Labs CBC & Chem 7: 02/15/18 11:44 02/15/18 11:46 <Deirdre Sánchez - Last Filed: 02/16/18 18:36> Assessment and Plan (1) Anemia Status: Acute Code(s): D64.9 - Anemia, unspecified - Plan Assessment: - Ileus KUB (02/13) Moderate gaseous distention of bowel CT abdomen and pelvis W IV contrast (02/14) Bowel containing left inguinal hernia. No significant change from recent prior. No new acute findings. Pt currently with NG to LIWS. States he is passing gas. Unsure of BMs but states the nurse did have to wipe him earlier. Pt on Reglan q 6hrs. Also on Elvie-Colace. - L pneumothorax S/P chest tube and removal (02/15) Minimal amount of output in NG canister but there was 700 mL gastric drainage documented from yesterday. Pt taking small sips of water. Pt unable to provide symptoms, when asked about how his stomach feels he states he is unsure. Abdomen exam reveals mild generalized tenderness but abdomen is soft and nondistended. Reports passing gas but does not think he has had a BM. Of note, pt on [place]. (02/16) NG tube removed, pt on liquid diet and is tolerating. Denies nausea, vomiting. No BM yet but has been passing gas. Reports his stomach is kind of sore. Abdominal exam benign. Plan: Advance diet Bowel regimen GI will sign off, please reconsult as needed Have pt follow up with GI following DC Pt has been seen and examined by myself and Dr. Sánchez and this note is written on her behalf <Nathalie Knight - Last Filed: 02/16/18 15:58> (1) Anemia Status: Acute Code(s): D64.9 - Anemia, unspecified - Attending Attestation agree with above <Deirdre Sánchez - Last Filed: 02/16/18 18:36>
--- NOTE | 2018-02-16 16:22 | P.PNCA ---
Subjective Interval history: No CP or SOB, NG tube discontinued, feels better, BP increased last night Physical Exam Vital signs: Vital Signs 02/16/18 00:00 02/16/18 04:00 02/16/18 06:00 Temperature 98.5 F 97.9 F Pulse Rate 67 55 L 79 Respiratory Rate 20 18 Blood Pressure 239/105 H 206/80 H 204/98 H Pulse Oximetry 95 95 02/16/18 08:00 02/16/18 08:40 02/16/18 12:00 Temperature 98.0 F 97.6 F 98.0 F Pulse Rate 66 65 57 L Respiratory Rate 16 18 17 Blood Pressure 182/86 H 167/79 H 187/79 H Pulse Oximetry 95 94 L 02/16/18 16:00 Temperature 98.3 F Pulse Rate 56 L Respiratory Rate 18 Blood Pressure 169/76 H Pulse Oximetry 93 L Intake & Output 02/15/18 02/16/18 02/16/18 18:59 06:59 18:59 Intake Total 1000 / 1000 1000 / 1000 1100 / 1100 Output Total 350 / 350 625 / 625 Balance 650 / 650 375 / 375 1100 / 1100 Weight 127 lb 6.835 oz Intake: IV 1000 / 1000 1000 / 1000 1100 / 1100 NS Inj 1,000 ML @ 100 mls/hr IV 1000 / 1000 1000 / 1000 1000 / 1000 .CONT .Q10H [facility] Rx#:[id number] Levaquin 500 mg Premix Inj 500 100 / 100 mg In 100 ml @ 100 mls/hr IV. SIG Q48H [facility] Rx#:[id number] Oral 0 / 0 Output: Urine 350 / 350 625 / 625 Stool 0 / 0 - Constitutional no acute distress - Routine Respiratory Exam Present: CTA bilaterally, diminished air movement - Routine Cardiovascular Exam Present: RRR - Routine Abdominal Exam Present: soft - Routine Extremities Exam Absent: edema - Routine Psychiatric Exam Present: normal affect - Urinary Catheter Management Indwelling Urethral Catheter Cath placed during this visit: yes Urethral indwelling: Yes Reason for continuing: Acute urinary retention Insertion date: 02/16/18 Insertion time: 06:33 Assessment and Plan - Assessment (1) Orthostatic hypotension Code(s): I95.1 - Orthostatic hypotension Status: Acute (2) Hypertension Code(s): I10 - Essential (primary) hypertension Status: Acute (3) Ileus, unspecified Code(s): K56.7 - Ileus, unspecified Status: Acute (4) Pneumothorax, left Code(s): J93.9 - Pneumothorax, unspecified Status: Acute (5) Anemia Code(s): D64.9 - Anemia, unspecified Status: Acute - Plan BP elevated. He had severe orthostatic hypotension in rehab recently requiring Midodrine (now off). Will continue to adjust antihypertensive therapy. Increase activity, PT.
[2018-02-16] MEDS: Levofloxacin 500 mg Premix Inj 500 MG/100 ML PIGGYBACK IV.SIG SCH (17:48)
[2018-02-16 19:13] LABS: Bacteria,Urine Rare /hpf; Bilirubin,Urine Negative (Negative); Clarity,Urine Cloudy (Clear); Color,Urine Yellow (Yellw/Straw); Glucose,Urine (UA) Negative (Negative); Leukocyte Esterase,Urine Large (Negative); Nitrite,Urine Negative (Negative); Specific Gravity,Urine 1.008 (1.002-1.035)
--- NOTE | 2018-02-16 19:40 | P.PNPL ---
Subjective Interval history: [address] eff, s/p chest tube removal Started liq diet Mild abd discomfort No N,V Physical Exam Vital signs: Vital Signs 02/16/18 00:00 02/16/18 04:00 02/16/18 06:00 Temperature 98.5 F 97.9 F Pulse Rate 67 55 L 79 Respiratory Rate 20 18 Blood Pressure 239/105 H 206/80 H 204/98 H Pulse Oximetry 95 95 02/16/18 08:00 02/16/18 08:40 02/16/18 12:00 Temperature 98.0 F 97.6 F 98.0 F Pulse Rate 66 65 57 L Respiratory Rate 16 18 17 Blood Pressure 182/86 H 167/79 H 187/79 H Pulse Oximetry 95 94 L 02/16/18 16:00 Temperature 98.3 F Pulse Rate 56 L Respiratory Rate 18 Blood Pressure 169/76 H Pulse Oximetry 93 L Intake & Output 02/16/18 02/16/18 02/17/18 06:59 18:59 06:59 Intake Total 1000 / 1000 1100 / 1100 100 / 100 Output Total 625 / 625 500 / 500 Balance 375 / 375 600 / 600 100 / 100 Weight 57.8 kg Intake: IV 1000 / 1000 1100 / 1100 100 / 100 NS Inj 1,000 ML @ 100 mls/hr IV 1000 / 1000 1000 / 1000 .CONT .Q10H [facility] Rx#:[id number] Levaquin 500 mg Premix Inj 500 100 / 100 100 / 100 mg In 100 ml @ 100 mls/hr IV. SIG Q48H [facility] Rx#:[id number] Oral 0 / 0 Output: Urine 625 / 625 500 / 500 Stool 0 / 0 Gastric Drainage 0 / 0 Left Nare 0 / 0 GENERAL: SKIN: Warm and dry. HEAD: Normocephalic. EYES: No scleral icterus. No injection or drainage. NECK: Supple, trachea midline. No JVD or lymphadenopathy. CARDIOVASCULAR: Regular rate and rhythm without murmurs, gallops, or rubs. RESPIRATORY: Breath sounds equal bilaterally. No accessory muscle use. GASTROINTESTINAL: Abdomen soft, non-tender, nondistended. MUSCULOSKELETAL: No cyanosis, or edema. BACK: Nontender without obvious deformity. No CVA tenderness. - Urinary Catheter Management Indwelling Urethral Catheter Cath placed during this visit: yes Urethral indwelling: Yes Reason for continuing: Acute urinary retention Insertion date: 02/16/18 Insertion time: 06:33 Assessment and Plan - Plan A/P Assessment and Plan IMPRESSION: 1. Left pneumothorax, status post chest tube placement. 2. Pleural effusion. 3. Recent pneumonia. 4. Chronic obstructive pulmonary disease. 5. Ileus PLAN Supplement 02 Cont Levaquin pain controll Stable on RA Liquid diet
[2018-02-16] MEDS: traZODone 100 MG Tablet PO SCH (20:13)
[2018-02-16] MEDS: amLODIPine 5 MG Tablet PO SCH (20:14)
[2018-02-17 06:17] LABS: Hemoglobin 11.5 gm/dL (13.0-17.0); Mean Corpuscular HGB Conc 33.9 % (32.0-36.0); Mean Corpuscular Hemoglobin 31.5 pg (27.0-34.0); Mean Corpuscular Volume 93.2 fL (80.0-100.0); Mean Platelet Volume 9.2 fL (7.0-11.0); Platelet Count 222 th/mm3 (150-450); Red Blood Count 3.65 mil/mm3 (4.50-5.90); Red Cell Distribution Width 16.5 % (11.6-17.2)
[2018-02-17 06:31] LABS: INR 1.2 Ratio; Prothrombin Time 12.3 sec (9.8-11.6)
[2018-02-17 06:38] LABS: Calcium 8.2 mg/dL (8.5-10.1); Carbon Dioxide 27.4 meq/L (21.0-32.0)
[2018-02-17 06:41] LABS: Potassium 2.8 meq/L (3.5-5.1)
[2018-02-17] MEDS: Senna/Docusate Sodium 8.6/50 MG Tablet PO SCH ×2 (09:05→20:24)
[2018-02-17] MEDS: amLODIPine 5 MG Tablet PO SCH ×2 (09:06→20:25)
[2018-02-17] MEDS: Folic Acid 1 MG Tablet PO SCH (09:07)
[2018-02-17] MEDS: Lisinopril 20 MG Tablet PO SCH (09:07)
[2018-02-17] MEDS: Lidocaine 5% Patch T-DERMAL SCH (09:09)
[2018-02-17] MEDS: Enoxaparin Inj 30 MG/0.3 ML Syringe SQ SCH (09:13)
--- NOTE | 2018-02-17 12:08 | P.PNCA ---
Subjective Interval history: No CP or SOB, ate full meal today Physical Exam Vital signs: Vital Signs 02/16/18 16:00 02/16/18 20:00 02/17/18 00:00 Temperature 98.3 F 97.4 F L 97.0 F L Pulse Rate 56 L 78 71 Respiratory Rate 18 17 17 Blood Pressure 169/76 H 154/74 H 137/70 Pulse Oximetry 93 L 95 95 02/17/18 04:00 02/17/18 08:00 Temperature 98 F 98.2 F Pulse Rate 52 L 66 Respiratory Rate 17 18 Blood Pressure 177/72 H 157/75 H Pulse Oximetry 94 L 94 L Intake & Output 02/16/18 02/17/18 02/17/18 18:59 06:59 18:59 Intake Total 1100 / 1100 340 / 340 Output Total 500 / 500 850 / 850 Balance 600 / 600 -510 / -510 Intake: IV 1100 / 1100 100 / 100 NS Inj 1,000 ML @ 100 mls/hr IV 1000 / 1000 .CONT .Q10H [facility] Rx#:[id number] Levaquin 500 mg Premix Inj 500 100 / 100 100 / 100 mg In 100 ml @ 100 mls/hr IV. SIG Q48H [facility] Rx#:[id number] Oral 0 / 0 240 / 240 Output: Urine 500 / 500 Stool 0 / 0 Urine Amount (Catheter) 850 / 850 Indwelling Urethral Catheter 850 / 850 Gastric Drainage 0 / 0 Left Nare 0 / 0 - Constitutional no acute distress - Routine Respiratory Exam Present: CTA bilaterally - Routine Cardiovascular Exam Present: RRR - Routine Abdominal Exam Present: soft - Routine Extremities Exam Absent: edema - Routine Neurological Exam Present: alert, oriented X3 - Routine Psychiatric Exam Present: normal affect - Urinary Catheter Management Indwelling Urethral Catheter Cath placed during this visit: yes Urethral indwelling: Yes Reason for continuing: Acute urinary retention Insertion date: 02/16/18 Insertion time: 06:33 Assessment and Plan - Assessment (1) Orthostatic hypotension Code(s): I95.1 - Orthostatic hypotension Status: Acute (2) Hypertension Code(s): I10 - Essential (primary) hypertension Status: Acute (3) Ileus, unspecified Code(s): K56.7 - Ileus, unspecified Status: Acute (4) Pneumothorax, left Code(s): J93.9 - Pneumothorax, unspecified Status: Acute (5) Anemia Code(s): D64.9 - Anemia, unspecified Status: Acute - Plan BP better controlled, continue to titrate antihypertensive tx. He had severe orthostatic hypotension in rehab recently requiring Midodrine (now off). Ileus improving. Pain controlled. Increase activity, PT.
--- NOTE | 2018-02-17 15:11 | P.PNFP ---
Subjective Interval history: Slept well Tolerating solid food. B/P better On Room air Results - Labs Result diagrams: 02/17/18 05:05 02/17/18 05:05 Abnormal lab results 02/16/18 02/17/18 02/17/18 Range/Units 18:27 05:05 05:05 RBC 3.65 L (4.50-5.90) mil/mm3 Hgb 11.5 L (13.0-17.0) gm/dL Hct 34.0 L (39.0-51.0) % PT (9.8-11.6) sec Potassium 2.8 L* (3.5-5.1) meq/L Estimated GFR 58 L (>89) mL/min Calcium 8.2 L (8.5-10.1) mg/dL Urine Clarity Cloudy H (Clear) Urine Protein 100 H (Neg-Trace) mg/dL Urine Occult Blood Large H (Negative) Ur Leukocyte Esterase Large H (Negative) Urine WBC Clumps Many H (None) Urine Bacteria Rare H (None) /hpf 02/17/18 Range/Units 05:05 RBC (4.50-5.90) mil/mm3 Hgb (13.0-17.0) gm/dL Hct (39.0-51.0) % PT 12.3 H (9.8-11.6) sec Potassium (3.5-5.1) meq/L Estimated GFR (>89) mL/min Calcium (8.5-10.1) mg/dL Urine Clarity (Clear) Urine Protein (Neg-Trace) mg/dL Urine Occult Blood (Negative) Ur Leukocyte Esterase (Negative) Urine WBC Clumps (None) Urine Bacteria (None) /hpf Short CBC 02/17/18 Range/Units 05:05 WBC 7.0 (4.0-11.0) th/mm3 Hgb 11.5 L (13.0-17.0) gm/dL Hct 34.0 L (39.0-51.0) % Plt Count 222 (150-450) th/mm3 BMP 02/17/18 05:05 Sodium 142 Potassium 2.8 L* Chloride 103 Carbon Dioxide 27.4 BUN 18 Creatinine 1.21 Calcium 8.2 L Urine 02/16/18 Range/Units 18:27 Urine Color Yellow (Yellw/Straw) Urine Clarity Cloudy H (Clear) Urine pH 8.0 (5.0-8.5) Ur Specific [place] 1.008 (1.002-1.035) Urine Protein 100 H (Neg-Trace) mg/dL Urine Glucose (UA) Negative (Negative) mg/dL Physical Exam Vital signs: Vital Signs 02/16/18 16:00 02/16/18 20:00 02/17/18 00:00 Temperature 98.3 F 97.4 F L 97.0 F L Pulse Rate 56 L 78 71 Respiratory Rate 18 17 17 Blood Pressure 169/76 H 154/74 H 137/70 Pulse Oximetry 93 L 95 95 02/17/18 04:00 02/17/18 08:00 02/17/18 12:00 Temperature 98 F 98.2 F 97.3 F L Pulse Rate 52 L 66 69 Respiratory Rate 17 18 18 Blood Pressure 177/72 H 157/75 H 136/68 Pulse Oximetry 94 L 94 L 93 L Intake & Output 02/16/18 02/17/18 02/17/18 18:59 06:59 18:59 Intake Total 1100 / 1100 340 / 340 Output Total 500 / 500 850 / 850 Balance 600 / 600 -510 / -510 Intake: IV 1100 / 1100 100 / 100 NS Inj 1,000 ML @ 100 mls/hr IV 1000 / 1000 .CONT .Q10H [facility] Rx#:[id number] Levaquin 500 mg Premix Inj 500 100 / 100 100 / 100 mg In 100 ml @ 100 mls/hr IV. SIG Q48H [facility] Rx#:[id number] Oral 0 / 0 240 / 240 Output: Urine 500 / 500 Stool 0 / 0 Urine Amount (Catheter) 850 / 850 Indwelling Urethral Catheter 850 / 850 Gastric Drainage 0 / 0 Left Nare 0 / 0 - Constitutional no acute distress, thin, cooperative - Routine HEENT Exam ENT: Present: oropharynx clear - Routine Respiratory Exam Present: CTA bilaterally - Routine Cardiovascular Exam Present: RRR, S1, S2 - Routine Abdominal Exam Present: soft, normoactive bowel sounds - Routine Skin Exam Present: intact - Routine Neurological Exam Present: alert, oriented X3 - Routine Psychiatric Exam Present: normal affect, cooperative - Urinary Catheter Management Indwelling Urethral Catheter Cath placed during this visit: yes Urethral indwelling: Yes Reason for continuing: Acute urinary retention Insertion date: 02/16/18 Insertion time: 06:33 Assessment and Plan - Assessment (1) Ileus, unspecified Code(s): K56.7 - Ileus, unspecified Status: Acute Plan: NG placed on 02/09/18. NG removed 02/15/18 Resolved (2) Pneumothorax, left Code(s): J93.9 - Pneumothorax, unspecified Status: Acute Plan: Chest tube placed 02/08/18 Chest tube removed 02/12 denies SOB F/U Pulmonary recommendations Resolved (3) Hypertension Code(s): I10 - Essential (primary) hypertension Status: Acute Plan: Cont to monitor On Norvasc, lisinopril - Assessment and Plan 02/15/18- Denies SOB, CP. Chest tube removed 02/12. Tender at site, pain controlled with current tx. NG tube in place to sx. Brown drainage noted. VSS afebrile. He voices he is fatigued, Not sure if he had BM today. Labs show Potassium 3.2, will replace. Hopes to go back to [place] [facility]. 02/16/18- Had issues with controlling Bp throughout night. B/P running in 200's systolic Medications include lisinopril 40mg qd, Cardiology added Norvasc 5mg bid today. Midodrine Dc, Prn medications include clonidine 0.1 mg q4, Vasotec 1.25 q6 prn. both for systolic >160/90. ND removed tolerating full liq diet. Chest tube removed, breathing w/o difficulty. Pt activity ordered. Gi following cont to follow rec's, likely diet to be advanced. 02/17/18-Feeling better, NG, Chest tube gone. Tolerating solid foods, Sat's maintain on room air currently. Muñoz in place for retention. Will attempt to remove, Increase Flomax. B/P better, he had orthostatic hypotension in rehab requiring Midodrine, that has been DC. Dc back to [place], likely next 1-2 days.
--- NOTE | 2018-02-17 16:40 | P.PNPL ---
Subjective Interval history: [address] eff, Ileus Feels better no abd pain Physical Exam Vital signs: Vital Signs 02/16/18 20:00 02/17/18 00:00 02/17/18 04:00 Temperature 97.4 F L 97.0 F L 98 F Pulse Rate 78 71 52 L Respiratory Rate 17 17 17 Blood Pressure 154/74 H 137/70 177/72 H Pulse Oximetry 95 95 94 L 02/17/18 08:00 02/17/18 12:00 Temperature 98.2 F 97.3 F L Pulse Rate 66 69 Respiratory Rate 18 18 Blood Pressure 157/75 H 136/68 Pulse Oximetry 94 L 93 L Intake & Output 02/16/18 02/17/18 02/17/18 18:59 06:59 18:59 Intake Total 1100 / 1100 340 / 340 Output Total 500 / 500 850 / 850 Balance 600 / 600 -510 / -510 Intake: IV 1100 / 1100 100 / 100 NS Inj 1,000 ML @ 100 mls/hr IV 1000 / 1000 .CONT .Q10H [facility] Rx#:[id number] Levaquin 500 mg Premix Inj 500 100 / 100 100 / 100 mg In 100 ml @ 100 mls/hr IV. SIG Q48H [facility] Rx#:[id number] Oral 0 / 0 240 / 240 Output: Urine 500 / 500 Stool 0 / 0 Urine Amount (Catheter) 850 / 850 Indwelling Urethral Catheter 850 / 850 Gastric Drainage 0 / 0 Left Nare 0 / 0 GENERAL: MBMN male NAD SKIN: Warm and dry. HEAD: Normocephalic. EYES: No scleral icterus. No injection or drainage. NECK: Supple, trachea midline. No JVD or lymphadenopathy. CARDIOVASCULAR: Regular rate and rhythm without murmurs, gallops, or rubs. RESPIRATORY: Breath sounds equal bilaterally. No accessory muscle use. GASTROINTESTINAL: Abdomen soft, non-tender, nondistended. MUSCULOSKELETAL: No cyanosis, or edema. BACK: Nontender without obvious deformity. No CVA tenderness. - Urinary Catheter Management Indwelling Urethral Catheter Cath placed during this visit: yes Urethral indwelling: Yes Reason for continuing: Acute urinary retention Insertion date: 02/16/18 Insertion time: 06:33 Assessment and Plan - Plan A/P Assessment and Plan IMPRESSION: 1. Left pneumothorax, status post chest tube placement. 2. Pleural effusion. 3. Recent pneumonia. 4. Chronic obstructive pulmonary disease. 5. Ileus PLAN Supplement 02 Cont Levaquin pain controll Stable on RA Stable from pulm standpoint
[2018-02-17] MEDS: traZODone 100 MG Tablet PO SCH (20:24)
[2018-02-18 06:28] LABS: Hematocrit 33.1 % (39.0-51.0); Hemoglobin 11.2 gm/dL (13.0-17.0); Mean Corpuscular HGB Conc 33.7 % (32.0-36.0); Mean Corpuscular Hemoglobin 31.8 pg (27.0-34.0); Mean Corpuscular Volume 94.5 fL (80.0-100.0); Mean Platelet Volume 9.3 fL (7.0-11.0); Platelet Count 197 th/mm3 (150-450); Red Cell Distribution Width 16.6 % (11.6-17.2); White Blood Count 8.5 th/mm3 (4.0-11.0)
[2018-02-18 06:58] LABS: Calcium 7.6 mg/dL (8.5-10.1); Carbon Dioxide 27.2 meq/L (21.0-32.0)
[2018-02-18] MEDS: Enoxaparin Inj 30 MG/0.3 ML Syringe SQ SCH (08:28)
[2018-02-18] MEDS: Lisinopril 20 MG Tablet PO SCH (08:29)
[2018-02-18] MEDS: Senna/Docusate Sodium 8.6/50 MG Tablet PO SCH ×2 (08:30→21:17)
[2018-02-18] MEDS: Folic Acid 1 MG Tablet PO SCH (08:30)
[2018-02-18] MEDS: amLODIPine 5 MG Tablet PO SCH (08:31)
[2018-02-18 08:37] LABS: Total Protein 4.7 g/dL (6.4-8.2)
--- NOTE | 2018-02-18 09:29 | P.PNFP ---
Subjective Interval history: Voices did not sleep well Denies CP or SOB B/P better Results - Labs Result diagrams: 02/18/18 06:07 02/18/18 06:07 Abnormal lab results 02/18/18 02/18/18 Range/Units 06:07 06:07 RBC 3.50 L (4.50-5.90) mil/mm3 Hgb 11.2 L (13.0-17.0) gm/dL Hct 33.1 L (39.0-51.0) % BUN 20 H (7-18) mg/dL Creatinine 1.40 H (0.60-1.30) mg/dL Estimated GFR 49 L (>89) mL/min Calcium 7.6 L (8.5-10.1) mg/dL Total Protein 4.7 L (6.4-8.2) g/dL Short CBC 02/18/18 Range/Units 06:07 WBC 8.5 (4.0-11.0) th/mm3 Hgb 11.2 L (13.0-17.0) gm/dL Hct 33.1 L (39.0-51.0) % Plt Count 197 (150-450) th/mm3 BMP 02/18/18 02/18/18 06:07 06:07 Sodium 142 Potassium 4.0 D Chloride 107 Carbon Dioxide 27.2 BUN 20 H Creatinine 1.40 H Calcium 7.6 L Cancelled Physical Exam Vital signs: Vital Signs 02/17/18 12:00 02/17/18 16:00 02/17/18 20:00 Temperature 97.3 F L 97.7 F 97.8 F Pulse Rate 69 60 73 Respiratory Rate 18 18 16 Blood Pressure 136/68 130/60 120/65 Pulse Oximetry 93 L 94 L 95 02/18/18 00:00 02/18/18 04:00 02/18/18 08:00 Temperature 98.1 F 97.9 F 97.7 F Pulse Rate 69 68 50 L Respiratory Rate 16 16 18 Blood Pressure 118/80 141/64 H 145/66 H Pulse Oximetry 95 96 94 L Intake & Output 02/17/18 02/18/18 02/18/18 18:59 06:59 18:59 Intake Total 1200 / 1200 Output Total 350 / 350 350 / 350 Balance 850 / 850 -350 / -350 Weight 60.5 kg Intake: Oral 1200 / 1200 Output: Urine 350 / 350 Urine Amount (Catheter) 350 / 350 Indwelling Urethral Catheter 350 / 350 Other: # Incontinent Bowel Movements 0 - Constitutional no acute distress, cooperative - Routine HEENT Exam Head: Present: normocephalic ENT: Present: mucous membranes moist - Routine Neck Exam Present: supple - Routine Respiratory Exam Present: CTA bilaterally - Routine Cardiovascular Exam Present: RRR, S1, S2 - Routine Abdominal Exam Present: soft, normoactive bowel sounds - Routine Skin Exam Present: intact - Routine Neurological Exam Present: alert, oriented X3 - Routine Psychiatric Exam Present: cooperative - Urinary Catheter Management Indwelling Urethral Catheter Cath placed during this visit: yes Urethral indwelling: Yes Reason for continuing: Acute urinary retention Insertion date: 02/16/18 Insertion time: 06:33 Assessment and Plan - Assessment (1) Ileus, unspecified Code(s): K56.7 - Ileus, unspecified Status: Acute Plan: NG placed on 02/09/18. NG removed 02/15/18 Resolved (2) Pneumothorax, left Code(s): J93.9 - Pneumothorax, unspecified Status: Acute Plan: Chest tube placed 02/08/18 Chest tube removed 02/12 denies SOB F/U Pulmonary recommendations Resolved (3) Hypertension Code(s): I10 - Essential (primary) hypertension Status: Acute Plan: Cont to monitor On Norvasc, lisinopril - Assessment and Plan 02/15/18- Denies SOB, CP. Chest tube removed 02/12. Tender at site, pain controlled with current tx. NG tube in place to sx. Brown drainage noted. VSS afebrile. He voices he is fatigued, Not sure if he had BM today. Labs show Potassium 3.2, will replace. Hopes to go back to [place] at [place]. 02/16/18- Had issues with controlling Bp throughout night. B/P running in 200's systolic Medications include lisinopril 40mg qd, Cardiology added Norvasc 5mg bid today. Midodrine Dc, Prn medications include clonidine 0.1 mg q4, Vasotec 1.25 q6 prn. both for systolic >160/90. ND removed tolerating full liq diet. Chest tube removed, breathing w/o difficulty. Pt activity ordered. Gi following cont to follow rec's, likely diet to be advanced. 02/17/18-Feeling better, NG, Chest tube gone. Tolerating solid foods, Sat's maintain on room air currently. Muñoz in place for retention. Will attempt to remove, Increase Flomax. B/P better, he had orthostatic hypotension in rehab requiring Midodrine, that has been DC. Dc back to [place], likely next 1-2 days. 02/18/18- Vss afebrile, His BP better today, tolerating diet. Breathing better, will likely Dc to [place].
[2018-02-18] MEDS: Lidocaine 5% Patch T-DERMAL SCH (14:17)
[2018-02-18] MEDS: Levofloxacin 500 mg Premix Inj 500 MG/100 ML PIGGYBACK IV.SIG SCH (18:46)
--- NOTE | 2018-02-18 19:09 | P.PNPL ---
Subjective Interval history: [address] eff, Ileus Feels better no abd pain Had my First good meal" Physical Exam Vital signs: Vital Signs 02/17/18 20:00 02/18/18 00:00 02/18/18 04:00 Temperature 97.8 F 98.1 F 97.9 F Pulse Rate 73 69 68 Respiratory Rate 16 16 16 Blood Pressure 120/65 118/80 141/64 H Pulse Oximetry 95 95 96 02/18/18 08:00 02/18/18 12:00 02/18/18 14:35 Temperature 97.7 F 97.9 F Pulse Rate 50 L 65 62 Respiratory Rate 18 18 Blood Pressure 145/66 H 131/60 Pulse Oximetry 94 L 90 L 02/18/18 16:00 Temperature 97.9 F Pulse Rate 58 L Respiratory Rate 18 Blood Pressure 128/61 Pulse Oximetry 95 Intake & Output 02/18/18 02/18/18 02/19/18 06:59 18:59 06:59 Intake Total 720 / 720 Output Total 350 / 350 400 / 400 Balance -350 / -350 320 / 320 Weight 60.5 kg Intake: Oral 720 / 720 Output: Urine Amount (Catheter) 350 / 350 400 / 400 Indwelling Urethral Catheter 350 / 350 400 / 400 Other: Date of Last Bowel Movement 02/17/18 GENERAL: MBMN WM,NAD SKIN: Warm and dry. HEAD: Normocephalic. EYES: No scleral icterus. No injection or drainage. NECK: Supple, trachea midline. No JVD or lymphadenopathy. CARDIOVASCULAR: Regular rate and rhythm without murmurs, gallops, or rubs. RESPIRATORY: Breath sounds equal bilaterally. No accessory muscle use. GASTROINTESTINAL: Abdomen soft, non-tender, nondistended. MUSCULOSKELETAL: No cyanosis, or edema. BACK: Nontender without obvious deformity. No CVA tenderness. - Urinary Catheter Management Indwelling Urethral Catheter Cath placed during this visit: yes Urethral indwelling: Yes Reason for continuing: Acute urinary retention Insertion date: 02/16/18 Insertion time: 06:33 Assessment and Plan - Plan A/P Assessment and Plan IMPRESSION: 1. Left pneumothorax, status post chest tube placement. 2. Pleural effusion. 3. Recent pneumonia. 4. Chronic obstructive pulmonary disease. 5. Ileus PLAN Cont Levaquin pain controll Stable on RA Stable from pulm standpoint
--- NOTE | 2018-02-18 19:41 | P.PNCA ---
Subjective Interval history: No CP or SOB, still c/o mild abdominal discomfort Physical Exam Vital signs: Vital Signs 02/17/18 20:00 02/18/18 00:00 02/18/18 04:00 Temperature 97.8 F 98.1 F 97.9 F Pulse Rate 73 69 68 Respiratory Rate 16 16 16 Blood Pressure 120/65 118/80 141/64 H Pulse Oximetry 95 95 96 02/18/18 08:00 02/18/18 12:00 02/18/18 14:35 Temperature 97.7 F 97.9 F Pulse Rate 50 L 65 62 Respiratory Rate 18 18 Blood Pressure 145/66 H 131/60 Pulse Oximetry 94 L 90 L 02/18/18 16:00 Temperature 97.9 F Pulse Rate 58 L Respiratory Rate 18 Blood Pressure 128/61 Pulse Oximetry 95 Intake & Output 02/18/18 02/18/18 02/19/18 06:59 18:59 06:59 Intake Total 720 / 720 Output Total 350 / 350 400 / 400 Balance -350 / -350 320 / 320 Weight 133 lb 6.075 oz Intake: Oral 720 / 720 Output: Urine Amount (Catheter) 350 / 350 400 / 400 Indwelling Urethral Catheter 350 / 350 400 / 400 Other: Date of Last Bowel Movement 02/17/18 Narrative: GENERAL: In NAD. SKIN: Warm and dry. NECK: JVD normal - less than or equal to 5 cm H20. CARDIOVASCULAR: Regular rate and rhythm without murmurs, gallops or rubs. RESPIRATORY: Normal breath sounds - equal bilaterally. No accessory muscle use. No wheezes, rales or rubs. PERIPHERY: No cyanosis or edema. - Urinary Catheter Management Indwelling Urethral Catheter Cath placed during this visit: yes Urethral indwelling: Yes Reason for continuing: Acute urinary retention Insertion date: 02/16/18 Insertion time: 06:33 Assessment and Plan - Assessment (1) Orthostatic hypotension Code(s): I95.1 - Orthostatic hypotension Status: Acute (2) Hypertension Code(s): I10 - Essential (primary) hypertension Status: Acute (3) Ileus, unspecified Code(s): K56.7 - Ileus, unspecified Status: Acute (4) Pneumothorax, left Code(s): J93.9 - Pneumothorax, unspecified Status: Acute (5) Anemia Code(s): D64.9 - Anemia, unspecified Status: Acute - Plan No new cardiac issues. BP much better controlled. He had severe orthostatic hypotension in rehab recently requiring Midodrine (now off). Ileus resolved, now c/o constipation. Pain well controlled. Increase activity, PT. Anticipate transfer to rehab soon.
[2018-02-18] MEDS: traZODone 100 MG Tablet PO SCH (21:18)
[2018-02-18] MEDS: LORazepam 0.5 MG Tablet PO PRN (21:32)
[2018-02-19] MEDS: Folic Acid 1 MG Tablet PO SCH (09:06)
[2018-02-19] MEDS: Lisinopril 20 MG Tablet PO SCH (09:07)
[2018-02-19] MEDS: Senna/Docusate Sodium 8.6/50 MG Tablet PO SCH ×2 (09:07→20:04)
[2018-02-19] MEDS: Enoxaparin Inj 30 MG/0.3 ML Syringe SQ SCH (09:09)
[2018-02-19] MEDS: Lidocaine 5% Patch T-DERMAL SCH (09:12)
--- NOTE | 2018-02-19 13:20 | P.PNCA ---
<Brenda Taylor N - Last Filed: 02/19/18 13:35> Subjective Interval history: pt denies any cp, pressure, palpitations or SOB. pt does c/o generalized body aches. Physical Exam Vital signs: Vital Signs 02/18/18 14:35 02/18/18 16:00 02/18/18 20:00 Temperature 97.9 F 97.8 F Pulse Rate 62 58 L 78 Respiratory Rate 18 18 Blood Pressure 128/61 148/67 H Pulse Oximetry 95 94 L 02/19/18 00:00 02/19/18 04:00 02/19/18 07:19 Temperature 97.8 F 97.7 F 97.7 F Pulse Rate 65 78 78 Respiratory Rate 16 18 18 Blood Pressure 140/67 134/61 134/61 Pulse Oximetry 92 L 92 L 92 L 02/19/18 08:00 Temperature 98.1 F Pulse Rate 58 L Respiratory Rate 18 Blood Pressure 157/70 H Pulse Oximetry 94 L Intake & Output 02/18/18 02/19/18 02/19/18 18:59 06:59 18:59 Intake Total 720 / 720 100 / 100 Output Total 400 / 400 1000 / 1000 Balance 320 / 320 -1000 / -1000 100 / 100 Intake: IV 100 / 100 Levaquin 500 mg Premix Inj 500 100 / 100 mg In 100 ml @ 100 mls/hr IV. SIG Q48H [facility] Rx#:[id number] Oral 720 / 720 Output: Urine 1000 / 1000 Urine Amount (Catheter) 400 / 400 Indwelling Urethral Catheter 400 / 400 Other: Date of Last Bowel Movement 02/17/18 02/17/18 - Constitutional no acute distress - Routine HEENT Exam Head: Present: normocephalic Eye: Present: EOMI, PERRL ENT: Present: mucous membranes moist - Routine Neck Exam Present: supple - Routine Respiratory Exam Present: CTA bilaterally - Routine Cardiovascular Exam Present: RRR. Absent: murmur, rubs - Routine Abdominal Exam Comments: pt c/o not having a BM. Enema ordered. - Routine Extremities Exam Present: full ROM, pulses intact. Absent: edema - Routine Skin Exam Present: intact - Routine Neurological Exam Present: oriented X3 - Detailed Neurological Exam: Coma Scale Eye Opening: Spontaneous Verbal Response: Oriented Motor Response: Obey commands [place] Coma Scale Total: 15 - Routine Psychiatric Exam Present: normal thought process - Urinary Catheter Management Indwelling Urethral Catheter Cath placed during this visit: yes Urethral indwelling: Yes Reason for continuing: Acute urinary retention Insertion date: 02/16/18 Insertion time: 06:33 Assessment and Plan - Assessment (1) Orthostatic hypotension Code(s): I95.1 - Orthostatic hypotension Status: Acute (2) Hypertension Code(s): I10 - Essential (primary) hypertension Status: Acute (3) Ileus, unspecified Code(s): K56.7 - Ileus, unspecified Status: Acute (4) Pneumothorax, left Code(s): J93.9 - Pneumothorax, unspecified Status: Acute (5) Anemia Code(s): D64.9 - Anemia, unspecified Status: Acute - Plan No new cardiac issues. BP much better controlled. Ileus resolved, pt c/o constipation, mineral oil enema ordered due to fleets enema having severe side effects with patients current medications. Pain well controlled. Increase activity, PT. Patient ok to transfer to rehab from cardiac standpoint. <Immanuel Zazueta - Last Filed: 02/19/18 16:00> Physical Exam Vital signs: Vital Signs 02/18/18 16:00 02/18/18 20:00 02/19/18 00:00 Temperature 97.9 F 97.8 F 97.8 F Pulse Rate 58 L 78 65 Respiratory Rate 18 18 16 Blood Pressure 128/61 148/67 H 140/67 Pulse Oximetry 95 94 L 92 L 02/19/18 04:00 02/19/18 07:19 02/19/18 08:00 Temperature 97.7 F 97.7 F 98.1 F Pulse Rate 78 78 58 L Respiratory Rate 18 18 18 Blood Pressure 134/61 134/61 157/70 H Pulse Oximetry 92 L 92 L 94 L 02/19/18 12:00 Temperature 98.2 F Pulse Rate 93 H Respiratory Rate 18 Blood Pressure 118/71 Pulse Oximetry 94 L Intake & Output 02/18/18 02/19/18 02/19/18 18:59 06:59 18:59 Intake Total 720 / 720 100 / 100 Output Total 400 / 400 1000 / 1000 Balance 320 / 320 -1000 / -1000 100 / 100 Intake: IV 100 / 100 Levaquin 500 mg Premix Inj 500 100 / 100 mg In 100 ml @ 100 mls/hr IV. SIG Q48H [facility] Rx#:[id number] Oral 720 / 720 Output: Urine 1000 / 1000 Urine Amount (Catheter) 400 / 400 Indwelling Urethral Catheter 400 / 400 Other: Date of Last Bowel Movement 02/17/18 02/17/18 - Urinary Catheter Management Indwelling Urethral Catheter Cath placed during this visit: no Assessment and Plan - Assessment (1) Orthostatic hypotension Code(s): I95.1 - Orthostatic hypotension Status: Acute (2) Hypertension Code(s): I10 - Essential (primary) hypertension Status: Acute (3) Ileus, unspecified Code(s): K56.7 - Ileus, unspecified Status: Acute (4) Pneumothorax, left Code(s): J93.9 - Pneumothorax, unspecified Status: Acute (5) Anemia Code(s): D64.9 - Anemia, unspecified Status: Acute - Attending Attestation Pt seen and examined. I reviewed and agree with the findings and plan presented. He c/o constipation, enema ordered. OK to transfer to rehab from cardiac standpoint today.
--- NOTE | 2018-02-19 14:56 | P.PNFP ---
Subjective Interval history: breathing better no gi upset remains constipated Results - Labs Result diagrams: 02/18/18 06:07 02/18/18 06:07 Physical Exam Vital signs: Vital Signs 02/18/18 16:00 02/18/18 20:00 02/19/18 00:00 Temperature 97.9 F 97.8 F 97.8 F Pulse Rate 58 L 78 65 Respiratory Rate 18 18 16 Blood Pressure 128/61 148/67 H 140/67 Pulse Oximetry 95 94 L 92 L 02/19/18 04:00 02/19/18 07:19 02/19/18 08:00 Temperature 97.7 F 97.7 F 98.1 F Pulse Rate 78 78 58 L Respiratory Rate 18 18 18 Blood Pressure 134/61 134/61 157/70 H Pulse Oximetry 92 L 92 L 94 L 02/19/18 12:00 Temperature 98.2 F Pulse Rate 93 H Respiratory Rate 18 Blood Pressure 118/71 Pulse Oximetry 94 L Intake & Output 02/18/18 02/19/18 02/19/18 18:59 06:59 18:59 Intake Total 720 / 720 100 / 100 Output Total 400 / 400 1000 / 1000 Balance 320 / 320 -1000 / -1000 100 / 100 Intake: IV 100 / 100 Levaquin 500 mg Premix Inj 500 100 / 100 mg In 100 ml @ 100 mls/hr IV. SIG Q[facility]H [facility] Rx#:[id number] Oral 720 / 720 Output: Urine 1000 / 1000 Urine Amount (Catheter) 400 / 400 Indwelling Urethral Catheter 400 / 400 Other: Date of Last Bowel Movement 02/17/18 02/17/18 - Constitutional no acute distress Comments: frail - Routine HEENT Exam Head: Present: normocephalic Eye: Present: EOMI, PERRL - Routine Respiratory Exam Present: CTA bilaterally, diminished air movement - Routine Cardiovascular Exam Present: RRR - Routine Abdominal Exam Present: soft, normoactive bowel sounds - Routine Neurological Exam Present: alert, oriented X3 - Urinary Catheter Management Indwelling Urethral Catheter Cath placed during this visit: yes Urethral indwelling: Yes Reason for continuing: Acute urinary retention Insertion date: 02/16/18 Insertion time: 06:33 Assessment and Plan - Assessment (1) Ileus, unspecified Code(s): K56.7 - Ileus, unspecified Status: Acute Plan: NG placed on 02/09/18. NG removed 02/15/18 Resolved (2) Pneumothorax, left Code(s): J93.9 - Pneumothorax, unspecified Status: Acute Plan: Chest tube placed 02/08/18 Chest tube removed 02/12 denies SOB F/U Pulmonary recommendations Resolved (3) Hypertension Code(s): I10 - Essential (primary) hypertension Status: Acute Plan: Cont to monitor On Norvasc, lisinopril - Assessment and Plan 02/15/18- Denies SOB, CP. Chest tube removed 02/12. Tender at site, pain controlled with current tx. NG tube in place to sx. Brown drainage noted. VSS afebrile. He voices he is fatigued, Not sure if he had BM today. Labs show Potassium 3.2, will replace. Hopes to go back to [place] at [place]. 02/16/18- Had issues with controlling Bp throughout night. B/P running in 200's systolic Medications include lisinopril 40mg qd, Cardiology added Norvasc 5mg bid today. Midodrine Dc, Prn medications include clonidine 0.1 mg q4, Vasotec 1.25 q6 prn. both for systolic >160/90. ND removed tolerating full liq diet. Chest tube removed, breathing w/o difficulty. Pt activity ordered. Gi following cont to follow rec's, likely diet to be advanced. 02/17/18-Feeling better, NG, Chest tube gone. Tolerating solid foods, Sat's maintain on room air currently. Muñoz in place for retention. Will attempt to remove, Increase Flomax. B/P better, he had orthostatic hypotension in rehab requiring Midodrine, that has been DC. Dc back to [place], likely next 1-2 days. 02/18/18- Vss afebrile, His BP better today, tolerating diet. Breathing better, will likely Dc to [place]. Discussed Condition With: will add enema for constipation and dc to [place] [facility] in am once bowels have moved
[2018-02-19] MEDS ORDERED: Mineral Oil Enema 118 ML Bottle RECTAL ONE (15:00)
--- NOTE | 2018-02-19 18:43 | P.PNPL ---
Subjective Interval history: [address] eff, Ileus Feels better no abd pain Had my First good mealC/o constipation Physical Exam Vital signs: Vital Signs 02/18/18 20:00 02/19/18 00:00 02/19/18 04:00 Temperature 97.8 F 97.8 F 97.7 F Pulse Rate 78 65 78 Respiratory Rate 18 16 18 Blood Pressure 148/67 H 140/67 134/61 Pulse Oximetry 94 L 92 L 92 L 02/19/18 07:19 02/19/18 08:00 02/19/18 12:00 Temperature 97.7 F 98.1 F 98.2 F Pulse Rate 78 58 L 93 H Respiratory Rate 18 18 18 Blood Pressure 134/61 157/70 H 118/71 Pulse Oximetry 92 L 94 L 94 L 02/19/18 16:00 Temperature 97.8 F Pulse Rate 75 Respiratory Rate 18 Blood Pressure 133/63 Pulse Oximetry 94 L Intake & Output 02/18/18 02/19/18 02/19/18 18:59 06:59 18:59 Intake Total 720 / 720 820 / 820 Output Total 400 / 400 1000 / 1000 750 / 750 Balance 320 / 320 -1000 / -1000 70 / 70 Intake: IV 100 / 100 Levaquin 500 mg Premix Inj 500 100 / 100 mg In 100 ml @ 100 mls/hr IV. SIG Q48H [facility] Rx#:[id number] Oral 720 / 720 720 / 720 Output: Urine 1000 / 1000 Urine Amount (Catheter) 400 / 400 750 / 750 Indwelling Urethral Catheter 400 / 400 750 / 750 Other: Date of Last Bowel Movement 02/17/18 02/17/18 Narrative: GENERAL: In NAD. SKIN: Warm and dry. NECK: JVD normal - less than or equal to 5 cm H20. CARDIOVASCULAR: Regular rate and rhythm without murmurs, gallops or rubs. RESPIRATORY: Normal breath sounds - equal bilaterally. No accessory muscle use. No wheezes, rales or rubs. PERIPHERY: No cyanosis or edema. - Urinary Catheter Management Indwelling Urethral Catheter Cath placed during this visit: yes Urethral indwelling: Yes Reason for continuing: Acute urinary retention Insertion date: 02/16/18 Insertion time: 06:33 Assessment and Plan - Plan A/P Assessment and Plan IMPRESSION: 1. Left pneumothorax, status post chest tube placement. 2. Pleural effusion. 3. Recent pneumonia. 4. Chronic obstructive pulmonary disease. 5. Ileus PLAN Cont Levaquin pain controll Stable on RA Stable from pulm standpoint DC plans underway
[2018-02-19] MEDS: LORazepam 0.5 MG Tablet PO PRN (19:59)
[2018-02-19] MEDS: traZODone 100 MG Tablet PO SCH (23:23)
[2018-02-20] MEDS: Lidocaine 5% Patch T-DERMAL SCH ×2 (00:01→18:27)
[2018-02-20] MEDS: traZODone 100 MG Tablet PO SCH ×2 (00:06→21:06)
[2018-02-20] MEDS: Morphine Inj 4 MG/ML Vial IV.PUSH PRN ×3 (01:03→12:14)
[2018-02-20 01:52] LABS: ABG Base Excess -3.2 mmol/L (-2-2); ABG PCO2 18 mmHg (38-42); ABG PO2 50 mmHg (61-120)
--- NOTE | 2018-02-20 01:58 | XR ---
EXAM DATE: 02/20/2018 1:49 AM EDT AGE/SEX: 73 years / Male INDICATIONS: Short of breath. CLINICAL DATA: This is the patient's subsequent encounter. Patient reports that signs and symptoms h ave been present for 1 week and indicates a pain score of Nonresponsive. MEDICAL/SURGICAL HISTORY: Non-responsive. Non-responsive. COMPARISON: [facility] [place], 02/[place]. . FINDINGS: Single AP view the chest. Confluent opacity at the left lung base indicating consolidation versus ate lectasis. Right lung clear. Cardiomediastinal silhouette within normal limits. No evidence of pleural effusion or pneumothorax. CONCLUSION: Left lower lobe consolidation versus atelectasis. Electronically signed by: Jose Alfredo Delgadillo MD 02/20/2018 1:57 AM EDT
[2018-02-20] MEDS ORDERED: Sodium Chlor 0.9% Inj 250 ML IV.SIG ONE (02:00)
[2018-02-20] MEDS: LORazepam 0.5 MG Tablet PO PRN ×2 (05:24→13:05)
[2018-02-20] MEDS: Sod Chloride 0.9% Inj 1,000 ML IV.SIG SCH ×3 (05:27→21:07)
[2018-02-20] MEDS: Folic Acid 1 MG Tablet PO SCH (09:00)
[2018-02-20] MEDS: Lisinopril 20 MG Tablet PO SCH (09:00)
[2018-02-20] MEDS: Enoxaparin Inj 30 MG/0.3 ML Syringe SQ SCH (09:03)
[2018-02-20] MEDS: Senna/Docusate Sodium 8.6/50 MG Tablet PO SCH ×2 (09:13→21:06)
--- NOTE | 2018-02-20 10:22 | ECG ---
Date Performed: 02/20/2018 Time Performed: 01:16:42 PTAGE: 73 years EKG: Sinus tachycardia Poor R wave progression - probable normal variant Borderline ECG NO PREVIOUS TRACING DOCTOR: Humza Palacios Interpretating Date/Time 02/20/2018 10:20:14
--- NOTE | 2018-02-20 10:42 | P.PNFP ---
Subjective Interval history: pt uncomfortable has abd pain states he hasnt moved bowels ducolax and enemas ordered will add fentanyl patch for pain hospice discussed Results - Labs Result diagrams: 02/18/18 06:07 02/18/18 06:07 Abnormal lab results 02/20/18 Range/Units 01:27 O2 Saturation 89 L* (90-100) % ABG pH 7.61 H* (7.380-7.420) ABG pCO2 18 L* (38-42) mmHg ABG pO2 50 L* (61-120) mmHg ABG HCO3 18 L (22-26) mmol/L ABG Base Excess -3.2 L (-2-2) mmol/L - Imaging Impressions Chest X-Ray 02/20/18 00:56 CONCLUSION: Left lower lobe consolidation versus atelectasis. Physical Exam Vital signs: Vital Signs 02/19/18 12:00 02/19/18 16:00 02/19/18 20:00 Temperature 98.2 F 97.8 F 98.1 F Pulse Rate 93 H 75 76 Respiratory Rate 18 18 18 Blood Pressure 118/71 133/63 173/90 H Pulse Oximetry 94 L 94 L 96 02/19/18 21:13 02/19/18 22:40 02/19/18 22:53 Temperature Pulse Rate 89 92 H Respiratory Rate 18 20 22 Blood Pressure Pulse Oximetry 88 L 02/19/18 23:13 02/20/18 00:00 02/20/18 00:28 Temperature 97.5 F L 97.9 F Pulse Rate 117 H 134 H 160 H Respiratory Rate 18 20 18 Blood Pressure 121/77 130/89 Pulse Oximetry 92 L 89 L 02/20/18 01:11 02/20/18 02:44 02/20/18 04:00 Temperature 98.0 F Pulse Rate 123 H Respiratory Rate 20 Blood Pressure 112/65 Pulse Oximetry 94 L 92 L 92 L 02/20/18 05:25 02/20/18 05:45 Temperature Pulse Rate Respiratory Rate 18 Blood Pressure Pulse Oximetry 92 L Intake & Output 02/19/18 02/20/18 02/20/18 18:59 06:59 18:59 Intake Total 820 / 820 Output Total 750 / 750 1250 / 1250 Balance 70 / 70 -1250 / -1250 Intake: IV 100 / 100 Levaquin 500 mg Premix Inj 500 100 / 100 mg In 100 ml @ 100 mls/hr IV. SIG Q48H [facility] Rx#:[id number] Oral 720 / 720 Output: Urine 1250 / 1250 Urine Amount (Catheter) 750 / 750 Indwelling Urethral Catheter 750 / 750 Other: Date of Last Bowel Movement 02/17/18 - Constitutional mild distress - Routine HEENT Exam Head: Present: normocephalic Eye: Present: EOMI, PERRL - Routine Respiratory Exam Present: decreased breath sounds, CTA bilaterally - Routine Cardiovascular Exam Present: RRR - Routine Abdominal Exam Present: normoactive bowel sounds, tenderness, guarding - Urinary Catheter Management Indwelling Urethral Catheter Cath placed during this visit: yes Urethral indwelling: Yes Reason for continuing: Acute urinary retention Insertion date: 02/16/18 Insertion time: 06:33 Assessment and Plan - Assessment (1) Ileus, unspecified Code(s): K56.7 - Ileus, unspecified Status: Acute Plan: NG placed on 02/09/18. NG removed 02/15/18 Resolved 02/20 ducolax and enemas flat and upright films repeat cbc bmp (2) Pneumothorax, left Code(s): J93.9 - Pneumothorax, unspecified Status: Acute Plan: Chest tube placed 02/08/18 Chest tube removed 02/12 denies SOB F/U Pulmonary recommendations Resolved (3) Hypertension Code(s): I10 - Essential (primary) hypertension Status: Acute Plan: Cont to monitor On Norvasc, lisinopril - Assessment and Plan 02/15/18- Denies SOB, CP. Chest tube removed 02/12. Tender at site, pain controlled with current tx. NG tube in place to sx. Brown drainage noted. VSS afebrile. He voices he is fatigued, Not sure if he had BM today. Labs show Potassium 3.2, will replace. Hopes to go back to [place] at [place]. 02/16/18- Had issues with controlling Bp throughout night. B/P running in 200's systolic Medications include lisinopril 40mg qd, Cardiology added Norvasc 5mg bid today. Midodrine Dc, Prn medications include clonidine 0.1 mg q4, Vasotec 1.25 q6 prn. both for systolic >160/90. ND removed tolerating full liq diet. Chest tube removed, breathing w/o difficulty. Pt activity ordered. Gi following cont to follow rec's, likely diet to be advanced. 02/17/18-Feeling better, NG, Chest tube gone. Tolerating solid foods, Sat's maintain on room air currently. Muñoz in place for retention. Will attempt to remove, Increase Flomax. B/P better, he had orthostatic hypotension in rehab requiring Midodrine, that has been DC. Dc back to [place], likely next 1-2 days. 02/18/18- Vss afebrile, His BP better today, tolerating diet. Breathing better, will likely Dc to [place].
[2018-02-20] MEDS: Bisacodyl 10 MG Supp RECTAL SCH (11:00)
--- NOTE | 2018-02-20 15:19 | P.PNCA ---
<Brenda Taylor N - Last Filed: 02/20/18 15:07> Subjective Interval history: Pt resting comfortably. Denies any CP, palpitations, pressure, dizziness or SOB. Pt states he feels better today after BM. Physical Exam Vital signs: Vital Signs 02/19/18 16:00 02/19/18 20:00 02/19/18 21:13 Temperature 97.8 F 98.1 F Pulse Rate 75 76 Respiratory Rate 18 18 18 Blood Pressure 133/63 173/90 H Pulse Oximetry 94 L 96 02/19/18 22:40 02/19/18 22:53 02/19/18 23:13 Temperature 97.5 F L Pulse Rate 89 92 H 117 H Respiratory Rate 20 22 18 Blood Pressure 121/77 Pulse Oximetry 88 L 02/20/18 00:00 02/20/18 00:28 02/20/18 01:11 Temperature 97.9 F Pulse Rate 134 H 160 H Respiratory Rate 20 18 Blood Pressure 130/89 Pulse Oximetry 92 L 89 L 94 L 02/20/18 02:44 02/20/18 04:00 02/20/18 05:25 Temperature 98.0 F Pulse Rate 123 H Respiratory Rate 20 18 Blood Pressure 112/65 Pulse Oximetry 92 L 92 L 02/20/18 05:45 02/20/18 09:00 Temperature Pulse Rate 118 H Respiratory Rate Blood Pressure Pulse Oximetry 92 L Intake & Output 02/19/18 02/20/18 02/20/18 18:59 06:59 18:59 Intake Total 820 / 820 Output Total 750 / 750 1250 / 1250 Balance 70 / 70 -1250 / -1250 Intake: IV 100 / 100 Levaquin 500 mg Premix Inj 500 100 / 100 mg In 100 ml @ 100 mls/hr IV. SIG Q48H [facility] Rx#:[id number] Oral 720 / 720 Output: Urine 1250 / 1250 Urine Amount (Catheter) 750 / 750 Indwelling Urethral Catheter 750 / 750 Other: Date of Last Bowel Movement 02/17/18 02/20/18 - Constitutional no acute distress - Routine HEENT Exam Head: Present: normocephalic - Routine Neck Exam Present: supple - Routine Respiratory Exam Present: CTA bilaterally - Routine Cardiovascular Exam Present: RRR. Absent: murmur, gallop, rubs - Routine Abdominal Exam Present: soft - Routine Extremities Exam Absent: edema - Routine Neurological Exam Present: oriented X3 - Routine Psychiatric Exam Present: depressed Comments: pt stated he does not know if he wants to go back to rehab. He thinks he might want to go to hospice. Pt states, "No one should have to live like this. - Urinary Catheter Management Indwelling Urethral Catheter Cath placed during this visit: yes Urethral indwelling: Yes Reason for continuing: Acute urinary retention Insertion date: 02/16/18 Insertion time: 06:33 Assessment and Plan - Assessment (1) Orthostatic hypotension Code(s): I95.1 - Orthostatic hypotension Status: Acute (2) Hypertension Code(s): I10 - Essential (primary) hypertension Status: Acute (3) Ileus, unspecified Code(s): K56.7 - Ileus, unspecified Status: Acute (4) Pneumothorax, left Code(s): J93.9 - Pneumothorax, unspecified Status: Acute (5) Anemia Code(s): D64.9 - Anemia, unspecified Status: Acute - Plan No new cardiac issues. BP much better controlled. Pt stated he feels better now that the he has a BM. Pain well controlled. Increase activity, PT. Pt states, that he does not know if he wants to go to rehab, he might just want to go to hospice. Instructed the patient that it is his choice and whatever he decides is fine. The patient was seen and evaluated by Dr. Zazueta who participated in care, management and decision making. <Immanuel Zazueta - Last Filed: 02/20/18 15:37> Physical Exam Vital signs: Vital Signs 02/19/18 16:00 02/19/18 20:00 02/19/18 21:13 Temperature 97.8 F 98.1 F Pulse Rate 75 76 Respiratory Rate 18 18 18 Blood Pressure 133/63 173/90 H Pulse Oximetry 94 L 96 02/19/18 22:40 02/19/18 22:53 02/19/18 23:13 Temperature 97.5 F L Pulse Rate 89 92 H 117 H Respiratory Rate 20 22 18 Blood Pressure 121/77 Pulse Oximetry 88 L 02/20/18 00:00 02/20/18 00:28 02/20/18 01:11 Temperature 97.9 F Pulse Rate 134 H 160 H Respiratory Rate 20 18 Blood Pressure 130/89 Pulse Oximetry 92 L 89 L 94 L 02/20/18 02:44 02/20/18 04:00 02/20/18 05:25 Temperature 98.0 F Pulse Rate 123 H Respiratory Rate 20 18 Blood Pressure 112/65 Pulse Oximetry 92 L 92 L 02/20/18 05:45 02/20/18 09:00 Temperature Pulse Rate 118 H Respiratory Rate Blood Pressure Pulse Oximetry 92 L Intake & Output 02/19/18 02/20/18 02/20/18 18:59 06:59 18:59 Intake Total 820 / 820 Output Total 750 / 750 1250 / 1250 Balance 70 / 70 -1250 / -1250 Intake: IV 100 / 100 Levaquin 500 mg Premix Inj 500 100 / 100 mg In 100 ml @ 100 mls/hr IV. SIG Q48H [facility] Rx#:[id number] Oral 720 / 720 Output: Urine 1250 / 1250 Urine Amount (Catheter) 750 / 750 Indwelling Urethral Catheter 750 / 750 Other: Date of Last Bowel Movement 02/17/18 02/20/18 - Urinary Catheter Management Indwelling Urethral Catheter Cath placed during this visit: no Assessment and Plan - Assessment (1) Orthostatic hypotension Code(s): I95.1 - Orthostatic hypotension Status: Acute (2) Hypertension Code(s): I10 - Essential (primary) hypertension Status: Acute (3) Ileus, unspecified Code(s): K56.7 - Ileus, unspecified Status: Acute (4) Pneumothorax, left Code(s): J93.9 - Pneumothorax, unspecified Status: Acute (5) Anemia Code(s): D64.9 - Anemia, unspecified Status: Acute - Attending Attestation Patient seen and examined. I reviewed and agree with the findings and plan presented. The patient is considering hospice care vs rehab.
[2018-02-20 16:06] LABS: Baso # (Auto) 0.1 th/mm3 (0.0-0.2); Baso % (Auto) 0.2 % (0.0-2.0); Hematocrit 39.7 % (39.0-51.0); Hemoglobin 13.2 gm/dL (13.0-17.0); Lymph # (Auto) 0.6 th/mm3 (1.0-4.8); Lymph % (Auto) 2.2 % (9.0-44.0); Mean Corpuscular HGB Conc 33.3 % (32.0-36.0); Mean Platelet Volume 9.8 fL (7.0-11.0); Mono # (Auto) 1.1 th/mm3 (0.0-0.9); Neut # (Auto) 25.7 th/mm3 (1.8-7.7); Neut % (Auto) 93.6 % (16.0-70.0); Platelet Count 273 th/mm3 (150-450); Red Blood Count 4.27 mil/mm3 (4.50-5.90); Red Cell Distribution Width 17.1 % (11.6-17.2); White Blood Count 27.5 th/mm3 (4.0-11.0)
[2018-02-20 16:25] LABS: Calcium 8.5 mg/dL (8.5-10.1); Carbon Dioxide 21.8 meq/L (21.0-32.0); Potassium 4.4 meq/L (3.5-5.1)
[2018-02-20 17:01] LABS: Monocytes 6 % (0-8); Myelocytes 3 % (0-0); Platelet Estimate Normal (Normal); Platelet Morphology Normal (Normal); RBC Morphology Normal (Normal)
[2018-02-20] MEDS: Levofloxacin 500 mg Premix Inj 500 MG/100 ML PIGGYBACK IV.SIG SCH (18:27)
[2018-02-21] MEDS: LORazepam 0.5 MG Tablet PO PRN (02:32)
[2018-02-21] MEDS: Lidocaine 5% Patch T-DERMAL SCH (03:00)
[2018-02-21] MEDS ORDERED: dilTIAZem Inj 125 MG in Sodium Chlor 0.9% Inj 100 ML IV.CONT PRN (04:06)
--- NOTE | 2018-02-21 04:21 | XR ---
EXAM DATE: 02/21/2018 4:17 AM EDT AGE/SEX: 73 years / Male INDICATIONS: Short of breath. CLINICAL DATA: This is the patient's subsequent encounter. Patient reports that signs and symptoms h ave been present for 4 - 6 days and indicates a pain score of 6/10. MEDICAL/SURGICAL HISTORY: None. None. [place] [facility] [place]. . FINDINGS: Single AP view of the chest. Left lower lobe consolidation versus atelectasis unchanged. No evidence of pneumothorax. Right lung clear. Cardiomediastinal silhouette unchanged. CONCLUSION: Persistent left lower lobe consolidation versus atelectasis. No significant interval change. Electronically signed by: Jose Alfredo Delgadillo MD 02/21/2018 4:20 AM EDT
[2018-02-21 04:37] LABS: Baso # (Auto) 0.1 th/mm3 (0.0-0.2); Baso % (Auto) 0.3 % (0.0-2.0); Hemoglobin 13.1 gm/dL (13.0-17.0); Lymph # (Auto) 0.7 th/mm3 (1.0-4.8); Lymph % (Auto) 2.2 % (9.0-44.0); Mean Corpuscular HGB Conc 32.6 % (32.0-36.0); Mean Corpuscular Hemoglobin 30.7 pg (27.0-34.0); Mean Corpuscular Volume 94.2 fL (80.0-100.0); Mean Platelet Volume 10.3 fL (7.0-11.0); Mono % (Auto) 6.3 % (0.0-8.0); Neut # (Auto) 29.1 th/mm3 (1.8-7.7); Neut % (Auto) 91.2 % (16.0-70.0); Platelet Count 331 th/mm3 (150-450); Red Blood Count 4.25 mil/mm3 (4.50-5.90); Red Cell Distribution Width 18.2 % (11.6-17.2); White Blood Count 31.9 th/mm3 (4.0-11.0)
[2018-02-21 04:49] LABS: Activated Partial Thrombo Time 30.3 sec (24.3-30.1); INR 1.1 Ratio; Prothrombin Time 11.4 sec (9.8-11.6)
[2018-02-21 05:06] LABS: Calcium 8.8 mg/dL (8.5-10.1); Carbon Dioxide 25.1 meq/L (21.0-32.0); Potassium 4.9 meq/L (3.5-5.1)
[2018-02-21 05:29] LABS: Platelet Estimate Normal (Normal)
[2018-02-21] MEDS: Senna/Docusate Sodium 8.6/50 MG Tablet PO SCH (08:13)
[2018-02-21] MEDS: Enoxaparin Inj 30 MG/0.3 ML Syringe SQ SCH (08:13)
[2018-02-21] MEDS: Folic Acid 1 MG Tablet PO SCH (08:13)
[2018-02-21] MEDS: Bisacodyl 10 MG Supp RECTAL SCH (08:14)
[2018-02-21] MEDS: Morphine Inj 4 MG/ML Vial IV.PUSH PRN (08:16)
[2018-02-21] MEDS ORDERED: Pantoprazole Sodium 20 MG DR Tablet PO SCH (09:00)
[2018-02-21] MEDS: Lisinopril 20 MG Tablet PO SCH (09:00)
--- NOTE | 2018-02-21 11:00 | P.PNFP ---
Subjective Interval history: transfered to cardiac unit has ?gi bleed bp up and down pain not controlled Results - Labs Result diagrams: 02/21/18 04:06 02/21/18 04:06 Abnormal lab results 02/20/18 02/20/18 02/21/18 Range/Units 15:45 15:45 04:06 WBC 27.5 H (4.0-11.0) th/mm3 RBC 4.27 L (4.50-5.90) mil/mm3 RDW (11.6-17.2) % Neut % (Auto) 93.6 H (16.0-70.0) % Lymph % (Auto) 2.2 L (9.0-44.0) % Neut # (Auto) 25.7 H (1.8-7.7) th/mm3 Lymph # (Auto) 0.6 L (1.0-4.8) th/mm3 Johnston # (Auto) 1.1 H (0.0-0.9) th/mm3 Seg Neuts % (Manual) 88 H (16-70) % Myelocytes % (Man) 3 H (0-0) % Abs Neuts (Manual) 25.9 H (1.8-7.7) th/mm3 Platelet Morphology (Normal) APTT 30.3 H (24.3-30.1) sec BUN 19 H (7-18) mg/dL Creatinine 1.81 H (0.60-1.30) mg/dL Estimated GFR 37 L (>89) mL/min Random Glucose 150 H (74-106) mg/dL 02/21/18 02/21/18 Range/Units 04:06 04:06 WBC 31.9 H (4.0-11.0) th/mm3 RBC 4.25 L (4.50-5.90) mil/mm3 RDW 18.2 H (11.6-17.2) % Neut % (Auto) 91.2 H (16.0-70.0) % Lymph % (Auto) 2.2 L (9.0-44.0) % Neut # (Auto) 29.1 H (1.8-7.7) th/mm3 Lymph # (Auto) 0.7 L (1.0-4.8) th/mm3 Johnston # (Auto) 2.0 H (0.0-0.9) th/mm3 Seg Neuts % (Manual) (16-70) % Myelocytes % (Man) (0-0) % Abs Neuts (Manual) (1.8-7.7) th/mm3 Platelet Morphology Enlarged H (Normal) APTT (24.3-30.1) sec BUN 38 H (7-18) mg/dL Creatinine 2.02 H (0.60-1.30) mg/dL Estimated GFR 32 L (>89) mL/min Random Glucose 135 H (74-106) mg/dL Short CBC 02/20/18 02/21/18 Range/Units 15:45 04:06 WBC 27.5 H 31.9 H (4.0-11.0) th/mm3 Hgb 13.2 13.1 (13.0-17.0) gm/dL Hct 39.7 40.0 (39.0-51.0) % Plt Count 273 D 331 (150-450) th/mm3 BMP 02/20/18 02/21/18 15:45 04:06 Sodium 140 141 Potassium 4.4 4.9 Chloride 106 104 Carbon Dioxide 21.8 25.1 BUN 19 H 38 H Creatinine 1.81 H 2.02 H Calcium 8.5 8.8 - Imaging Impressions Chest X-Ray 02/21/18 03:46 CONCLUSION: Persistent left lower lobe consolidation versus atelectasis. No significant interval change. Physical Exam Vital signs: Vital Signs 02/20/18 12:00 02/20/18 16:00 02/20/18 18:37 Temperature 98.0 F 98.3 F Pulse Rate 144 H 131 H Respiratory Rate 22 Blood Pressure 161/90 H 134/71 Pulse Oximetry 95 96 96 02/20/18 20:00 02/20/18 20:12 02/20/18 22:38 Temperature 98.4 F Pulse Rate 117 H 121 H Respiratory Rate 18 20 Blood Pressure 133/65 Pulse Oximetry 95 02/20/18 23:08 02/21/18 00:00 02/21/18 00:36 Temperature 98.2 F Pulse Rate 140 H 129 H Respiratory Rate 20 18 24 Blood Pressure 129/75 Pulse Oximetry 96 96 02/21/18 02:00 02/21/18 02:31 02/21/18 04:00 Temperature 98.3 F Pulse Rate 166 H 150 H Respiratory Rate 20 18 Blood Pressure 96/55 L Pulse Oximetry 92 L 02/21/18 04:01 02/21/18 04:59 02/21/18 05:00 Temperature 98.2 F Pulse Rate 155 H 146 H 145 H Respiratory Rate 22 Blood Pressure 95/56 L Pulse Oximetry 93 L 93 L 02/21/18 05:44 02/21/18 06:00 Temperature Pulse Rate 127 H Respiratory Rate Blood Pressure 100/55 L Pulse Oximetry Intake & Output 02/20/18 02/21/18 02/21/18 18:59 06:59 18:59 Intake Total 420 / 420 Output Total 500 / 500 Balance -80 / -80 Intake: Oral 420 / 420 Output: Urine 500 / 500 Other: Date of Last Bowel Movement 02/20/18 02/20/18 # Bowel Movements 2 - Constitutional mild distress - Routine HEENT Exam Head: Present: normocephalic, atraumatic Eye: Present: EOMI, PERRL - Routine Neck Exam Present: full ROM - Routine Respiratory Exam Present: CTA bilaterally, diminished air movement - Routine Cardiovascular Exam Present: RRR - Routine Abdominal Exam Present: tenderness - Routine Psychiatric Exam Present: agitated - Urinary Catheter Management Indwelling Urethral Catheter Cath placed during this visit: yes Urethral indwelling: Yes Reason for continuing: Acute urinary retention Insertion date: 02/16/18 Insertion time: 06:03 Assessment and Plan - Assessment (1) Ileus, unspecified Code(s): K56.7 - Ileus, unspecified Status: Acute Plan: NG placed on 02/09/18. NG removed 02/15/18 Resolved 02/20 ducolax and enemas flat and upright films repeat cbc bmp 02/21 improved but now has hematemisis will reconsult GI (2) Pneumothorax, left Code(s): J93.9 - Pneumothorax, unspecified Status: Acute Plan: Chest tube placed 02/08/18 Chest tube removed 02/12 denies SOB F/U Pulmonary recommendations Resolved (3) Hypertension Code(s): I10 - Essential (primary) hypertension Status: Acute Plan: Cont to monitor On Norvasc, lisinopril - Assessment and Plan 02/15/18- Denies SOB, CP. Chest tube removed 02/12. Tender at site, pain controlled with current tx. NG tube in place to sx. Brown drainage noted. VSS afebrile. He voices he is fatigued, Not sure if he had BM today. Labs show Potassium 3.2, will replace. Hopes to go back to [facility] at DC. 02/16/18- Had issues with controlling Bp throughout night. B/P running in 200's systolic Medications include lisinopril 40mg qd, Cardiology added Norvasc 5mg bid today. Midodrine Dc, Prn medications include clonidine 0.1 mg q4, Vasotec 1.25 q6 prn. both for systolic >160/90. ND removed tolerating full liq diet. Chest tube removed, breathing w/o difficulty. Pt activity ordered. Gi following cont to follow rec's, likely diet to be advanced. 02/17/18-Feeling better, NG, Chest tube gone. Tolerating solid foods, Sat's maintain on room air currently. Muñoz in place for retention. Will attempt to remove, Increase Flomax. B/P better, he had orthostatic hypotension in rehab requiring Midodrine, that has been DC. Dc back to [facility], likely next 1-2 days. 02/18/18- Vss afebrile, His BP better today, tolerating diet. Breathing better, will likely Dc to [facility]. 02/21 will reconsult gi add protonix and increase pain meds pt is considering hospice will increase fentanyl and add lyrica
[2018-02-21 12:34] LABS: ABG Base Excess -6.5 mmol/L (-2-2); ABG PCO2 64 mmHg (38-42); ABG PO2 88 mmHG (61-120)
[2018-02-21] MEDS ORDERED: Pregabalin 25 MG Capsule PO SCH (13:00)
[2018-02-21] MEDS ORDERED: Morphine Inj 4 MG/ML Vial IV.PUSH PRN (13:35)
[2018-02-21] MEDS ORDERED: Naloxone Inj 4 MG/10 ML MDV IV.PUSH ONE (16:59)
--- NOTE | 2018-02-22 14:08 | ECG ---
Date Performed: 02/21/2018 Time Performed: 12:31:10 PTAGE: 73 years EKG: Atrial fibrillation with rapid ventricular response. Poor R wave progression - probable nor mal variant Lateral ST changes are nonspecific Compared to PREVIOUS TRACING , ATRIAL FIBRILLATION WITH RVR HAS REPALCED LIT SLOAN Abnormal E CG PREVIOUS TRACING 02/20/2018 DOCTOR: Bruce Bolivar Interpretating Date/Time 02/22/2018 14:07:37
--- NOTE | 2018-03-28 19:13 | P.DS ---
Date of admission: 02/08/18 10:40 Primary care physician: Natalia Primary Care Physician Attending physician on discharge: Tez Sidhu Anticipated date of discharge: 02/21/18 () Brief History from admission: pt has had multiple hospitalizations in the recent past for copd pneumoniae and chf he has had severalexacerbations and remisions and has not been at home or away from a facillity for several months during this admission he developed problems with bp copd and chf and ultimately requested a no code status he comfortably DS: Diagnosis - Discharge Diagnosis (1) Ileus, unspecified Status: Acute (2) Pneumothorax, left Status: Acute (3) Hypertension Status: Acute DS: Summary Hospital Course: pt admitted to hospital with copd respirastory failure debility hyper/ hypotension hemodynamic instability . He had been hospitalized or in SNF continuously over the past 6 months when his most recent hospitalization became complicated with chf and blood pressure instability he requested that he be made a no code and - Time Spent with Patient 15 min Less than 30 minutes - Quality: AMI Clinical Trial Participant: No - Quality: Stroke Reason for No Antithrombin at DC: Absent response to treatment () Exam - Constitutional moderate distress - Routine HEENT Exam Head: Present: normocephalic, Cam's sign Eye: Present: EOMI, PERRL ENT: Present: mucous membranes moist - Routine Neck Exam Present: supple, full ROM - Routine Chest/Breast/Axilla Exam Chest wall: Present: tenderness Breast: Present: tenderness - Routine Respiratory Exam Present: decreased breath sounds Results Procedures completed during hospitalization: B - Impressions ITS Impressions Abdomen/Pelvis CT 02/14/18 00:00 CONCLUSION: Bowel containing left inguinal hernia. No significant change from recent prior. No new acute findings. Abdomen X-Ray 02/15/18 00:00 CONCLUSION: Improving bowel gas pattern compared to the prior exam. Chest X-Ray 02/21/18 03:46 CONCLUSION: Persistent left lower lobe consolidation versus atelectasis. No significant interval change. Discharge Plan - Discharge Disposition Patient Disposition: 20 - Discharge Order Discharge Orders: Discharge Order (Routine); Ordered 02/18/18 Ordered By: Sulma Macias - Discharge Details Date/Time: 02/21/18 17:00 - Physicians Team Primary Care Provider: Primary Care Natalia Ricketts Attending Provider: Tez Sidhu Other Providers: Jose Giron MD ; Kelvin Burger MD ; Darius Morse MD ; Deirdre Sánchez MD ; Immanuel Zazueta MD - Rxs /Orders / Referrals /Forms Prescriptions: Discontinued acetaminophen 325 mg Tablet 650 mg PO Q4H PRN (Reason: Pain) clonidine HCl 0.1 mg Tablet 0.1 mg PO Q6HR PRN (Reason: Blood Pressure) cyanocobalamin (vitamin B-12) 2,000 mcg Tablet 2,000 mcg PO DAILY cyanocobalamin (vitamin B-12) 5,000 mcg Tablet, Sublingual 5,000 mcg SUBLINGUAL DAILY diltiazem HCl 30 mg Tablet 30 mg PO TID diltiazem HCl 120 mg Capsule,Ext.Rel 24h Degradable 120 mg PO DAILY doxazosin 8 mg Tablet 8 mg PO DAILY finasteride 5 mg Tablet 5 mg PO DAILY fluticasone-vilanterol 200-25 mcg/dose Blister With Device 1 inh INHALATION DAILY fluticasone-vilanterol 200-25 mcg/dose Blister With Device 1 inh INHALATION DAILY folic acid 1 mg Tablet 1 mg PO DAILY ipratropium-albuterol 0.5 mg-3 mg(2.5 mg base)/3 mL Solution For Nebulization 3 ml INHALATION Q4H PRN (Reason: Dyspnea) methylcellulose (with sugar) Powder 1.5 tbsp PO DAILY midodrine 5 mg Tablet 5 mg PO TID oxybutynin chloride 5 mg Tablet 5 mg PO Q12HR oxybutynin chloride 5 mg Tablet 5 mg PO Q12HR sennosides-docusate sodium 8.6-50 mg Tablet 1 tab PO BID tamsulosin 0.4 mg Capsule,Extended Release 24hr 0.4 mg PO HS trazodone 50 mg Tablet 200 mg PO HS trazodone 100 mg Tablet 200 mg PO HS Referrals: Primary Care Physici,Natalia [Primary Care Provider] - See Instructions
== END 2018-02-21 17:00 | disposition expired ==
LOC: N07 10:40 → HCIS 02-21 04:45
PROVIDERS: ADMIT Family Medicine; ATTEND Family Medicine